=== PATIENT | female | born 1955 | race Caucasian/White ===

== ENCOUNTER 2018-06-23 06:02 | Day surgery (SDC) | payer MEDICARE, SELFPAY ==
[2018-06-23] VITALS (7 sets, daily range): BP systolic 142–160; BP diastolic 65–82; PULSE 80–88; RESP 16–18; TEMP 36.4–36.7; O2SAT 94–98; BMI 46.5
--- NOTE | 2018-06-23 07:00 | COLBX_PTH ---
PATIENT: ALIYAH LEACH LOC: EN U#:[id number] AGE/SX: 63/F ROOM: RE06/23/[address]: Dr. Jama Sunshine MD : 1955 BED: DIS: 06/23/2018 SPEC #: [id number] RECD: 06/23/18 09:22 STATUS: YASMIN MAX #: [id number] SARA: 06/23/18 07:[address]: Jama Sunshine DEPT: SURGICAL PATHOLOGY RECD BY: Herber Corral ENTERED: 06/23/18 10:38 SP TYPE: COLON BX OTHR DR: Dr. London Posada MD Tissues: COLON BIOPSY Procedures: Surgery Specimen Level IV HEADER OPERATION: Colonoscopy (MAC) PRE-OP DIAGNOSIS: Personal history of colon cancer, abdominal bloating TISSUE SUBMITTED: Random colon biopsy MICROSCOPIC DIAGNOSIS Colon, random biopsy: No pathologic diagnosis. AM:satish 06/24/18 MICROSCOPIC DESCRIPTION Slides are reviewed. GROSS DESCRIPTION Received in fixative is one container labeled with the patient's name and designated random colon biopsy. The specimen consists of multiple irregular fragments of light salvador soft tissue that in aggregate measure 1.5 x 0.8 x 0.1 cm. The specimen is totally submitted in one cassette. / SJ:rg 06/23/18 TC:5 CPT: 76221
--- NOTE | 2018-06-23 07:25 | PCM.HP.STD ---
Problem List (1) Personal history of colon cancer Status: Acute (2) Generalized abdominal pain Status: Acute (3) Abdominal bloating Status: Acute History of Present Illness Date of Admission: 06/23/18 The patient is a 63 year old F who presents for colonoscopy. Patient's last colonoscopy was 03/26/2015. That was the 5-year sadiq for her colon cancer screening everything appeared to be normal at that time. Patient has been complaining of some abdominal bloating and occasional diarrhea. She states that her urine has been dark in nature but no signs of dysuria. In general she is also been complaining of some abdominal pain. She has a father with colon cancer. Past Medical History Medical History: Medical History (Last Reviewed 06/23/18 @ 07:30 by Jama Sunshine MD) Depression F32.9 Diabetes E11.9 H/O cancer of uterus Z85.42 h/o cervical h/o colon cancer hypercholesterolemia HTN (hypertension) I10 Allergies Penicillins [PCN] Allergy (Verified 06/23/18 06:32) Swelling tolterodine tartrate [From Detrol] Allergy (Verified 06/23/18 06:32) Swelling Home Medications: Ambulatory Orders Medication Instructions Recorded Betamethasone/Propylene Glyc 15 gm TP DAILY 12/21/14 [Betamethasone Dp Aug 0.05% Crm] Fluoxetine [Prozac] 20 mg PO DAILY 12/21/14 Levothyroxine [Synthroid] 125 mcg PO DAILY 12/21/14 Lisinopril [Zestril] 10 mg PO DAILY 12/21/14 Metformin(XR) [Glucophage Xr] 1,000 mg PO BID 12/21/14 Multivitamins,Ther W-Minerals 1 tab PO DAILY 12/21/14 [Multivitamin With Minerals] Pravastatin [Pravachol] 20 mg PO DAILY 12/21/14 aspirin 81 mg tablet,delayed 81 mg PO QDAY 03/31/18 release glimepiride 2 mg tablet 2 mg PO BID tab 03/31/18 Sitagliptin Phosphate [Januvia] 100 mg PO DAILY 04/22/18 Cyanocobalamin (Vitamin B-12) 2,500 mcg PO DAILY 06/23/18 [Vitamin B12] Pravastatin [Pravachol] 20 mg PO DAILY 06/23/18 Surgical History: Surgical History (Last Reviewed 06/23/18 @ 07:30 by Jama Sunshine MD) H/O colonoscopy Z98.890 2014 History of bilateral knee replacement Z96.653 History of laparoscopic cholecystectomy Z90.49 S/P appendectomy Z90.49 S/P colectomy Z90.49 S/P hysterectomy Z90.710 Smoking Status: Never smoker Review of Systems Cardiovascular: Denies: Chest Pain, Chest Pressure, Chest Tightness, Palpitations Respiratory: Denies: Cough, Hemoptysis, Shortness of breath at rest, Shortness of breath upon exertion, Wheezing Gastrointestinal: Denies: Abdominal Pain, Constipation, Diarrhea, Hematemesis, Nausea, Melena, Vomiting VTE Information - Inpt Only VTE Present on Admission: No VTE Mechan Device Prophylaxis: None VTE Pharm Prophylaxis ordered?: No Reason prophylaxis not ordered:: Treatment Not Indicated Patient Problems: Active and Suspected Problems (Last Reviewed 03/31/18 @ 08:37 by Jama Sunshine MD) Personal history of colon cancer (Acute) Generalized abdominal pain (Acute) Abdominal bloating (Acute) - Physical Exam Lungs: Clear to auscultation Cardiovascular: Regular rate, Regular Rhythm, No murmurs Abdomen: Bowel Sounds Present, Soft, Obese Vital Signs Temp Pulse Resp BP Pulse Ox 97.6 F L 81 18 156/65 H 98 06/23/18 06:37 06/23/18 06:37 06/23/18 06:37 06/23/18 06:37 06/23/18 06:37 Oxygen Delivery Method Room Air Weight: 271 lb Body Mass Index (BMI) 46.5 Assessment/Plan All Active Problems (Last Reviewed 03/31/18 @ 08:37 by Jama Sunshine MD) Personal history of colon cancer (Acute) Generalized abdominal pain (Acute) Abdominal bloating (Acute) I plan to perform a colonoscopy with random colon biopsies.
--- NOTE | 2018-06-23 07:39 | OP.ENDO_ITS ---
Patient Name: Daniella Michael Procedure Date: 06/23/2018 6:30 AM Date of : 1955 Age: 63 Procedure: Colonoscopy Indications: Generalized abdominal pain, Clinically significant diarrhea of unexplained origin Providers: Jama Sunshine MD Referring MD: Jama Sunshine MD Medicines: See the Anesthesia note for documentation of the administered medications Patient Profile: Last Colonoscopy: March 2015. Complications: No immediate complications. Procedure: Pre-Anesthesia Assessment: - Prior to the procedure, a History and Physical was performed, and patient medications and allergies were reviewed. The patient's tolerance of previous anesthesia was also reviewed. The risks and benefits of the procedure and the sedation options and risks were discussed with the patient. All questions were answered, and informed consent was obtained. Prior Anticoagulants: The patient has taken aspirin, last dose was 7 days prior to procedure. ASA Grade Assessment: III - A patient with severe systemic disease. After reviewing the risks and benefits, the patient was deemed in satisfactory condition to undergo the procedure. After I obtained informed consent, the scope was passed under direct vision. Throughout the procedure, the patient's blood pressure, pulse, and oxygen saturations were monitored continuously. The colonoscope was introduced through the anus and advanced to the ascending colon. The colonoscopy was aborted due to the extreme difficulty of the procedure. Increasing the dose of sedation medication and applying abdominal pressure did not allow for the successful completion of the procedure. The colonoscopy was somewhat difficult due to unsatisfactory bowel prep. Successful completion of the procedure was aided by applying abdominal pressure. The patient tolerated the procedure well. The quality of the bowel preparation was unsatisfactory. Scope In: 7:09:02 AM Scope Out: 7:21:00 AM Total Procedure Duration Time 0 hours 11 minutes 58 seconds Findings: The entire examined colon appeared normal. The colon (entire examined portion) was grossly redundant. This was biopsied with a cold large-capacity forceps for microbiology. Impression: - The procedure was aborted due to the extreme difficulty of the procedure. - Preparation of the colon was unsatisfactory. - The entire examined colon is normal. - Redundant colon. Recommendation: - Discharge patient to home. - Resume previous diet. - Continue present medications. - Perform an air contrast barium enema today. - Repeat colonoscopy in 1 year for surveillance. Will need to be done in a larger center with a longer scope! Procedure Code(s): --- Professional --- 75273, 52, Colonoscopy, flexible; with biopsy, single or multiple Diagnosis Code(s): --- Professional --- Z53.8, Procedure and treatment not carried out for other reasons R10.84, Generalized abdominal pain R19.7, Diarrhea, unspecified Q43.8, Other specified congenital malformations of intestine CPT copyright 2017 [employer]. All rights reserved. The codes documented in this report are preliminary and upon geomatics professor review may be revised to meet current compliance requirements. MD Jama Ramirez MD 06/23/2018 7:39:30 AM This report has been signed electronically. Number of Addenda: 0 Note Initiated On: 06/23/2018 6:30 AM
== END 2018-06-23 08:11 | disposition home or self-care (01) ==
LOC: EN 06:03 → AC 06:04
PROVIDERS: Family Provider Family Medicine; PCP Family Medicine; Visit Provider Surgery
PROC: 0DJD8ZZ Inspection of Lower Intestinal Tract, Via Natural or Artificial Opening Endoscopic (ICD-10-PCS; CPT 45378; principal; 2018-06-23 06:55)
DX: R10.84 Generalized abdominal pain (principal); R14.0 Abdominal distension (gaseous); R19.7 Diarrhea, unspecified; Q43.8 Other specified congenital malformations of intestine; Z53.8 Procedure and treatment not carried out for other reasons; I10 Essential (primary) hypertension; E78.00 Pure hypercholesterolemia, unspecified; E11.9 Type 2 diabetes mellitus without complications; E06.9 Thyroiditis, unspecified; F32.9 Major depressive disorder, single episode, unspecified; Z85.038 Personal history of other malignant neoplasm of large intestine; Z85.42 Personal history of malignant neoplasm of other parts of uterus; Z85.41 Personal history of malignant neoplasm of cervix uteri; Z79.82 Long term (current) use of aspirin; Z79.84 Long term (current) use of oral hypoglycemic drugs; Z79.899 Other long term (current) drug therapy; Z80.0 Family history of malignant neoplasm of digestive organs
CPT/HCPCS: 45380; 88305; J7120

== ENCOUNTER 2020-03-13 19:41 | Emergency (ER) | payer MEDICARE, SELFPAY ==
[2020-03-13 19:42] VITALS: BP 156/74; PULSE 90; RESP 18; TEMP 36.3; O2SAT 95; BMI 48.0
--- NOTE | 2020-03-13 20:15 | RAD_ITS ---
STUDY: X-RAY - RIGHT FOOT CLINICAL: Female, 65 years old. RIGHT FOOT LACERATION. KICKED A PICTURE FRAME ON ACCIDENT HAS PIECE OF GLASS STUCK BETWEEN TOES TECHNIQUE: 3 view(s) of the foot. COMPARISON: None. FINDINGS: 1.4 cm radiopaque foreign body consistent with glass is seen in the second and third webspace. No other acute abnormalities. Moderate plantar spur, otherwise normal talus, calcaneus, and tarsal bones. Degenerative changes of the visualized subtalar, talonavicular, calcaneocuboid, tarsal and tarsometatarsal articulations. Normal metatarsi. Normal metatarsophalangeal joint of the great toe. Normal tibial and fibular sesamoid bones. Normal interphalangeal joint of the great toe. Normal phalanges of the great toe. Normal second through fifth metatarsophalangeal joints. Normal interphalangeal joints and phalanges of the lesser toes. RAD/Foot min 3 Views IMPRESSION: 1.4 cm radiopaque foreign body consistent with glass is seen in the second and third webspace. No other acute abnormalities. Electronically Signed: Edd Ramirez MD at 20:29 EDT , Service support ,
--- NOTE | 2020-03-13 21:05 | ED.DCSUM_ITS ---
- ER Visit Summary Date of Service: 03/13/20 Chief Complaint: Laceration History of Present Illness: The patient is a [address] Posada. She reports that a picture frame broke and she was walking around and stepped on the glass. She denies any pain. She has a history of a diabetic neuropathy. She i s unsure when her last tetanus shot was. Physical Examination: Vitals: Stable. Afebrile. General: Well-nourished and well-developed. Head: Normocephalic atraumatic. Neck: Supple, no lymphadenopathy. No JVD. Nontender. Cardiovascular: Regular rate and rhythm. No murmurs. Respiratory: No respiratory distress. Clear to auscultation bilaterally. Abdominal: Soft, nontender, nondistended, normal bowel sounds. No guarding, rebound, or peritoneal signs. Back: Nontender. Extremities: 2+ dorsalis pedis pulse bilaterally. Decreased sensation light touch in a stocking distribution. She has a large piece of glass in the bottom of her second toe over the proximal phalanx. There is mild actively bleeding. Skin: Normal color, no rash. Neurologic: Alert and oriented ?3. Cranial nerves II through XII are intact. Normal strength and sensation. Psych: Normal affect. Test Results: Clinical Impression(s) from Imaging Studies Foot X-Ray 03/13/20 20:15 IMPRESSION: 1.4 cm radiopaque foreign body consistent with glass is seen in the second and third webspace. No other acute abnormalities. Electronically Signed: Edd Ramirez MD at 20:29 EDT , Service support , Emergency Department Course and Treatment: Patient had the foreign body removed. She had a wound anesthetized and repaired. She tolerated it well. Given her history of diabetes she was treated with Keflex. She had her tetanus updated. Treatment Plan: Patient be discharged instructions follow-up Dr. Madrid in 2 days for a wound check. She is instructed to get the sutures out in 10 to 14 days. She will be placed on Keflex in an attempt to prevent infection. Return to the emergency department for any worsening symptoms. Disposition: To home in improved and stable condition. Impression: 1. Laceration right second toe, 1.5 cm, repaired. Procedure note: Wound was cleansed with chlorhexidine soap. Anesthetized with 1% lidocaine without epinephrine. Copiously irrigated with normal saline. Wound was explored there is the foreign body was removed. It was closed with 2 simple interrupted 4-0 ethilon sutures. The patient tolerated it well. This note was generated with [employer] dictation software. It may contain incorrect words, spelling, and punctuation that were not noted in review of the chart prior to signing ED Disposition - Plan for ED Patient: Disposition: Home or Assisted Living Instructions: ED Laceration Ext Sutr Stap Tape Prescriptions: Cephalexin [Keflex] 500 mg PO Q6 #28 cap Prescription Printed Referrals: Pily Price DPM [STAFF PHYSICIAN] - 2 Days for wound check
[2020-03-13] MEDS: Diphth,Pertuss(Acell),Tet Vac 0.5 ML Vial IM (21:09)
[2020-03-13] MEDS: Cephalexin 250 MG Capsule 500 MG PO (21:10)
== END 2020-03-13 21:22 | disposition home or self-care (01) ==
LOC: ED 20:41
PROVIDERS: Emergency Provider Emergency Medicine; PCP Family Medicine
DX: S91.114A Laceration without foreign body of right lesser toe(s) without damage to nail, initial encounter (principal); W25.XXXA Contact with sharp glass, initial encounter
CPT/HCPCS: 12001; 73630; 90471; 90715; 99284

== ENCOUNTER 2022-07-29 16:08 | Inpatient (IN) | payer MEDICARE, SELFPAY ==
[2022-07-29 16:08] VITALS: TEMP 36; BMI 42.8
[2022-07-29 16:11] VITALS: O2SAT 94
[2022-07-29 16:13] VITALS: BP 149/57; PULSE 78; RESP 18; O2SAT 94
[2022-07-29] MEDS: Morphine 4 MG/ML Syringe IV ×2 (16:57→18:00)
[2022-07-29 17:06] LABS: Absolute Lymphocyte Count 2.12 X10^3/uL (0.83-4.51); Basophil# 0.08 X10^3/uL; Basophil% 0.5 % (0-1); Eosinophil# 0.17 X10^3/uL; Hematocrit 43.8 % (37-47); Lymphocyte # 2.12 X10^3/ul (0.83-4.51); Lymphocyte % 12.3 % (19-41); Mean Corpuscular Hgb 28.4 pg (27.0-32.0); Mean Corpuscular Volume 88.8 fL (81-99); Mean Platelet Vol. 9.3 fl (6.2-12.0); Monocyte# 0.75 X10^3/uL; Monocyte% 4.3 % (0-10); NRBC Flagged by Analyzer 0 % (0-5); Neutrophil # 13.96 X10^3/uL (2.7-7.7); Neutrophil % 80.7 % (47-70); Platelet Count 387 K/mm3 (150-450); RBC Distribution Width CV 14.2 % (11.6-14.6); RBC Distribution Width SD 45.8 fl (35.1-43.9); Red Blood Count 4.93 M/mm3 (4.2-5.4); White Blood Count 17.3 K/mm3 (4.4-11.0)
--- NOTE | 2022-07-29 17:10 | RAD_ITS ---
STUDY: X-RAY - UNILATERAL RIBS ( RIGHT ) WITH CHEST REASON FOR EXAM: Female, 67 years old. trauma TECHNIQUE - RIBS: 4 view(s) of the ribs. TECHNIQUE - CHEST: PA COMPARISON: None. FINDINGS - RIBS: There are mildly displaced fractures of the posterior right sixth through ninth ribs FINDINGS - CHEST: There is less than optimal inspiratory effort is seen. Mild chronic interstitial thickening in the left lower lobe.. There is no demonstrated pleural abnormality. Normal size heart. Normal mediastinum and low. Normal visualized pulmonary arteries. Mildly calcified aortic arch and descending thoracic aorta. Dorsal spine demonstrates degenerative change. Normal visualized clavicles, and shoulders. There is no demonstrated abnormality of the visualized soft tissue structures of the upper abdomen. RAD/Ribs Uni Min 3V w/PA Chest IMPRESSION: RIBS: Multiple acute right rib fractures without evidence for pneumothorax. CHEST: Normal x-ray examination of the chest. Electronically Signed: Declan Spear MD at 18:16 EST ,
[2022-07-29 17:32] LABS: ALB/GLOB Ratio 0.9 RATIO (0.9-2.4); AST(SGOT) 187 U/L (15-37); Alanine Aminotransfer ALT/SGPT 172 U/L (13-56); Albumin, Serum 3.6 g/dL (3.2-5.0); Alkaline Phosphatase 56 U/L (45-117); Anion Gap 7 (5-15); BUN 22 mg/dL (7-18); BUN/Creat Ratio 26.4 RATIO (10-20); Calcium,Total 9.3 mg/dL (8.5-10.1); Chloride 104 mmol/L (98-107); Creatinine, Serum 0.83 mg/dL (0.55-1.02); EST Glomerular Filtration Rate 72 mL/min (>60); Est Glom Filt Rate - Afr Amer 87 mL/min (>60); Estimated Creatinine Clearance 55.24 ml/min; Globulin 3.9 g/dL (2.2-4.2); Glucose 169 mg/dL (74-106); Potassium 4.2 mmol/L (3.5-5.1); Protein, Total 7.5 g/dL (6.4-8.2); Sodium Level 137 mmol/L (136-145)
[2022-07-29] MEDS: Ketorolac 15 MG/ML Vial IV (18:00)
[2022-07-29] MEDS: Lidocaine 5% Patch 1 PATCH TOPICAL (18:00)
--- NOTE | 2022-07-29 19:02 | PCM.HP.STD ---
HPI - General General Date of Admission: 07/29/22 Date of Service: 07/29/22 Chief Complaint: Right sided chest pain - 1 day HPI Narrative ALIYAH LEACH, is a 67 F who presents with the above. Patient has PMHx of Type 2 DM, hypertension, h/o colon, cervical and uterine CA, in remission, comes in after a fall was going to the restroom. Patient stated that she tripped on her feet, and fell and hit her right side against the bathtub. Patient had severe pain was moving. She denied any worsening shortness of breath or dizziness or palpitations. In the ED, her vitals show blood pressure 149/57, heart rate 70, respiratory rate 18, temperature 96.8 F, oxygen saturation was 94% on room air. Her white cell count was 17.3, hemoglobin 14.2 platelet count of 387. CMP was remarkable for BUN of 22, creatinine of 0.83, AST was elevated at 187, ALT 172, ALP 56, total bilirubin 0.40. Chest x-ray showed multiple acute right rib fractures without evidence of pneumothorax [facility] Medical History Depression Diabetes H/O cancer of uterus h/o cervical h/o colon cancer HTN (hypertension) hypercholesterolemia Home Medications lisinopril 10 mg tablet 10 mg PO DAILY HEART 12/21/14 [History Last Taken 07/29/22] multivitamin,io-sdvk-riofkpku 27 mg-0.4 mg tablet 1 tab PO DAILY SUPPLEMENT 12/21/14 [History Last Taken 4 Days Ago ~07/25/22] cyanocobalamin (vitamin B-12) 2,500 mcg tablet 2,500 mcg PO DAILY SUPPLEMENT 06/23/18 [History Last Taken 07/29/22] cholecalciferol (vitamin D3) 25 mcg (1,000 unit) tablet 25 mcg PO DAILY SUPPLEMENT 07/29/22 [History Last Taken 07/29/22] cod liver oil 4 cap PO DAILY SUPPLEMENT 07/29/22 [History Last Taken 07/29/22] fluoxetine 40 mg capsule 40 mg PO DAILY DEPRESSION 07/29/22 [History Last Taken 07/29/22] glimepiride 4 mg tablet 8 mg PO DINNER DM 07/29/22 [History Last Taken 07/29/22] lactobacillus combination no.4 3 billion cell capsule (Probiotic) 3,000 mmu cells PO DAILY SUPPLEMENT 07/29/22 [History Last Taken 07/28/22] levothyroxine 112 mcg tablet 112 mcg PO DAILY THYROID 07/29/22 [History Last Taken 07/29/22] metformin 1,000 mg tablet 1,000 mg PO BID DM 07/29/22 [History Last Taken 07/29/22] pravastatin 40 mg tablet 40 mg PO QHS CHOLESTEROL 07/29/22 [History Last Taken 07/28/22] Allergy/AdvReac Type Severity Reaction Status Date / Time Penicillins [PCN] Allergy Swelling Verified 03/13/20 19:45 tolterodine tartrate Allergy Swelling Verified 03/13/20 19:45 [From Detrol] Family History Father Colon cancer Mother Diabetes CVA (cerebral vascular accident) Family History no significant family his Surgical History H/O colonoscopy History of bilateral knee replacement History of laparoscopic cholecystectomy S/P appendectomy S/P colectomy S/P colonoscopy (~06/23/18) S/P hysterectomy Social History (Updated 07/29/22 @ 22:[address] Mary Lamas MD) household members: spouse and family Smoking Status: Never smoker alcohol intake: never substance use type: does not use ROS ROS Narrative Constitutional: Denies: Anorexia, Chills, Fever, Night Sweats, Weight Change Eyes: Denies: Blurred vision, Cataracts, Conjunctivae Inflammation, Pain, Redness, Vision Change HEENT: Denies: Difficulty Hearing, Difficulty Swallowing, Head Aches, Hearing Changes, Sinus Congestion, Sinus Drainage Cardiovascular: Denies: Chest Pain, Orthopnea, Palpitations Respiratory: Denies: Cough, Shortness of breath at rest, Sputum production Gastrointestinal: Denies: Abdominal Pain, Nausea, Vomiting Genitourinary: Denies: Dysuria Musculoskeletal:See HPI Skin: Denies: Rash, Wounds Neurological: Denies: Numbness, Tingling, Focal weakness Vital Signs Vital Signs Vital Signs: 07/29/22 16:08 07/29/22 16:11 07/29/22 16:13 Temperature 96.8 F L Temperature Source Temporal Pulse Rate 78 Respiratory Rate 18 Respiratory Effort Short of Breath Respiratory Depth Shallow Blood Pressure 149/57 H Blood Pressure Mean 87 Pulse Ox 94 94 Oxygen Delivery Method Room Air Weight Weight: 113.307 kg Body Mass Index (BMI) 42.8 Physical Exam Narrative Physical exam: General: Alert, Oriented x3, Cooperative, morbidly obese, in mild pain, , not on oxygen HEENT: Atraumatic Oral: Moist Mucosa Neck: Supple Lungs: Diminished to auscultation, splinting of the chest Cardiovascular: HS I+II, regular, no murmurs Abdomen: Bowel Sounds Present, Soft, Non Tender Extremities: No edema Skin: No rashes, No breakdown Neurological: Grossly intact Psych/Mental Status: Appropriate Results Lab / Micro Data Result Diagrams: 07/29/22 16:58 07/29/22 16:58 Labs: Laboratory Results - last 24 hr 07/29/22 16:58: WBC 17.3 H, RBC 4.93, Hgb 14.0, Hct 43.8, MCV 88.8, MCH 28.4, MCHC 32.0, RDW Std Deviation 45.8 H, RDW Coeff of Handy 14.2, Plt Count 387, MPV 9.3, Immature Gran % (Auto) 1.200 H, Neut % (Auto) 80.7 H, Lymph % (Auto) 12.3 L, [place] % (Auto) 4.3, Eos % (Auto) 1.0, Baso % (Auto) 0.5, Absolute Neuts (auto) 14.0 H, Absolute Lymphs (auto) 2.12, Nucleated RBC % 0 07/29/22 16:58: Sodium 137, Potassium 4.2, Chloride 104, Carbon Dioxide 26.0, Anion Gap 7, BUN 22 H, Creatinine 0.83, Estim Creat Clear Calc 55.24, Est GFR (MDRD) Af Amer 87, Est GFR (MDRD) Non-Af 72, BUN/Creatinine Ratio 26.4 H, Glucose 169 H, Calcium 9.3, Total Bilirubin 0.40, AST 187 H, ALT 172 H, Alkaline Phosphatase 56, Total Protein 7.5, Albumin 3.6, Globulin 3.9, Albumin/Globulin Ratio 0.9 Radiology Impression Ribs w/Chest X-Ray 07/29/22 17:10 IMPRESSION: RIBS: Multiple acute right rib fractures without evidence for pneumothorax. CHEST: Normal x-ray examination of the chest. Electronically Signed: Declan Spear MD at 18:16 EST Reading Location ID and State: [facility] / [place] , Service support , Assessment & Plan Assessment/Plan (1) Multiple fractures of ribs, right side, initial encounter for closed fracture: PLAN: Plan 1. Acute chest pain secondary to rib fractures, status post mechanical fall Chest x-ray shows mildly displaced fractures of the posterior right sixth through ninth ribs No pneumothorax seen Will admit for pain control, encourage use of incentive spirometer 2. Type II DM, on glimepiride and metformin We will continue same, will add blood glucose checks with insulin sliding scale 3. Hypertension, controlled, continue lisinopril 4. Hypothyroidism, continue Synthroid 5. Morbid obesity, BMI 42.9, lifestyle modification recommended 6. DVT PPx- Lovenox SC Charges/Coding Visit Charges Inpatient E&M: 37612 Init Hosp L3
--- NOTE | 2022-07-29 19:34 | EDS_ITS ---
HPI History of Present Illness Chief Complaint: Fall Informant: patient Narrative Narrative: Patient is a 67-year-old female with history of diabetes, hyperlipidemia and hypertension as well as colon cancer presenting with right-sided rib pain after fall. Patient was going to the restroom when her shoes got tangled up on the rug causing her to fall. Patient landed on her right ribs with the bathtub. She denies seeing her head. She denies any loss of conscious. She is on any blood thinners. She now has a cough and pain on her right side especially with any movement or deep breathing. She came in for further evaluation. Patient lives home alone. No other complaints at this time. [facility] Medical History Depression Diabetes H/O cancer of uterus h/o cervical h/o colon cancer HTN (hypertension) hypercholesterolemia Home Medications betamethasone, augmented 0.05 % topical cream 15 gm TP DAILY 12/21/14 [History Last Taken Unknown] fluoxetine 20 mg capsule 20 mg PO DAILY 12/21/14 [History Last Taken Unknown] levothyroxine 125 mcg tablet 125 mcg PO DAILY 12/21/14 [History Last Taken Unknown] lisinopril 10 mg tablet 10 mg PO DAILY 12/21/14 [History Last Taken Unknown] metformin 500 mg tablet,extended release 24 hr 1,000 mg PO BID 12/21/14 [History Last Taken Unknown] multivitamin,eq-tubz-cuafmcvs 27 mg-0.4 mg tablet 1 tab PO DAILY 12/21/14 [History Last Taken Unknown] pravastatin 20 mg tablet 20 mg PO DAILY 12/21/14 [History Last Taken Unknown] aspirin 81 mg tablet,delayed release 81 mg PO QDAY 03/31/18 [History Last Taken Unknown] glimepiride 2 mg tablet 2 mg PO BID 03/31/18 [History Last Taken Unknown] sitagliptin phosphate 100 mg tablet 100 mg PO DAILY 04/22/18 [History Last Taken Unknown] cyanocobalamin (vitamin B-12) 2,500 mcg tablet 2,500 mcg PO DAILY 06/23/18 [History Last Taken Unknown] pravastatin 20 mg tablet 20 mg PO DAILY 06/23/18 [History Last Taken Unknown] peg 3350-electrolytes 236 gram-22.74 gram-6.74 gram-5.86 gram solution 4,000 ml PO ONCE #4,000 mL 07/08/18 [Rx Last Taken Unknown] cephalexin 500 mg capsule 500 mg PO Q6 #28 caps 03/13/20 [Rx Last Taken Unknown] Allergy/AdvReac Type Severity Reaction Status Date / Time Penicillins [PCN] Allergy Swelling Verified 03/13/20 19:45 tolterodine tartrate Allergy Swelling Verified 03/13/20 19:45 [From Detrol] Family History Father Colon cancer Mother Diabetes CVA (cerebral vascular accident) no significant family history Surgical History H/O colonoscopy History of bilateral knee replacement History of laparoscopic cholecystectomy S/P appendectomy S/P colectomy S/P colonoscopy (~06/23/18) S/P hysterectomy Social History Smoking Status: Never smoker alcohol intake: never ROS ROS ED Constitutional Constitutional ED: Denies chills or fever(s) Eyes Eyes: Denies change in vision or eye pain ENT ENT ED: Denies dental pain, mouth lesions or nasal trauma Cardiovascular Cardiovascular: Reports chest pain; Denies syncope Respiratory/Chest Respiratory/Chest: Reports cough; Denies dyspnea Gastrointestinal Gastrointestinal: Denies abdominal pain or nausea Genitourinary Genitourinary ED: Denies dysuria or hematuria Musculoskeletal Musculoskeletal: Denies arthralgias, back pain or myalgias Integumentary Denies Abrasions or wounds Neurologic Neurologic: Denies headache(s), paresthesias or weakness Psychiatric Psychiatric: Denies anxiety or depression Hematologic/Lymphatic Hematologic/Lymphatic: Denies easy bleeding or easy bruising EXAM Physical Exam Const Vital Signs: 07/29/22 16:08 07/29/22 16:11 07/29/22 16:13 Temperature 96.8 F L Temperature Source Temporal Pulse Rate 78 Respiratory Rate 18 Respiratory Effort Short of Breath Respiratory Depth Shallow Blood Pressure 149/57 H Blood Pressure Mean 87 Pulse Ox 94 94 Oxygen Delivery Method Room Air Positive well nourished and well developed General Appearance ED: well developed HEENT Reports head/scalp atraumatic, hearing grossly normal bilaterally and TM's normal bilaterally normocephalic and atraumatic; Negative for Kelley's sign, raccoon eyes or scalp tenderness Nose: no nasal discharge Tympanic Membrane ED: Yes TM's normal bilaterally Mouth ED: Yes other Mouth: other Other Details: No Malocclusion Eyes PERRL Neck full ROM Thyroid: Negative for tender Chest Wall inspection of chest normal Chest Narrative: Tenderness palpation of the right mid chest near the midaxillary line and the back. No flail segment appreciated. Chest: Negative for crepitus Resp normal respiratory effort, no retractions and clear to auscultation bilaterally Cardio regular rate and regular rhythm Jugular Venous Distention: Negative for JVD Peripheral Pulses: pulses 2+ throughout GI non-tender and non-distended Palpation: soft; Negative for guarding or rebound tenderness present Back/Spine Cervical Spine: Negative for cervical spine tenderness Thoracic Spine / Upper Back: Negative for thoracic spinal tenderness Lumbar Spine / Lower Back: Negative for lumbar spinal tenderness Extremity normal to inspection and full ROM Extremity Narrative: pelvis stable, no deformity Neuro oriented x3, moves all extremities and no sensory deficits noted Sensorium / Orientation: alert Motor Exam: strength 5/5 throughout Psych mental status grossly normal Skin no wounds Trauma: Negative for abrasion MDM MDM MDM Narrative Medical decision making narrative: Patient is evaluated after mechanical fall with subsequent right-sided rib pain. Physical exam is concerning for rib fracture given her pain with palpation. She is not requiring any supplemental oxygen at this time. She is initially giv en IV morphine and then is redosed with morphine as well as IV Toradol and a Lidoderm patch. Work-up is remarkable for mild leukocytosis of 17.3. No IV source of infection I suspect this is reactive. CMP largely unremarkable. She does have a mild transaminitis of uncertain significance. Abdomen is soft and nontender. Rib series interpreted by myself as well as radiology do show multiple right-sided rib fractures. No flail segments appreciated. Patient will be admitted for further pain control. Patient and her daughter agreeable with this plan of care. Lab Data Attestation: I reviewed the patient's lab results. Labs: Laboratory Results - last 24 hr 07/29/22 07/29/22 16:58 16:58 WBC 17.3 H RBC 4.93 Hgb 14.0 Hct 43.8 MCV 88.8 MCH 28.4 MCHC 32.0 RDW Std Deviation 45.8 H RDW Coeff of Handy 14.2 Plt Count 387 MPV 9.3 Immature Gran % (Auto) 1.200 H Neut % (Auto) 80.7 H Lymph % (Auto) 12.3 L Snyder % (Auto) 4.3 Eos % (Auto) 1.0 Baso % (Auto) 0.5 Absolute Neuts (auto) 14.0 H Absolute Lymphs (auto) 2.12 Nucleated RBC % 0 Sodium 137 Potassium 4.2 Chloride 104 Carbon Dioxide 26.0 Anion Gap 7 BUN 22 H Creatinine 0.83 Estim Creat Clear Calc 55.24 Est GFR (MDRD) Af Amer 87 Est GFR (MDRD) Non-Af 72 BUN/Creatinine Ratio 26.4 H Glucose 169 H Calcium 9.3 Total Bilirubin 0.40 AST 187 H ALT 172 H Alkaline Phosphatase 56 Total Protein 7.5 Albumin 3.6 Globulin 3.9 Albumin/Globulin Ratio 0.9 Radiography Diagnostic Testing: Clinical Impression(s) from Imaging Studies Ribs w/Chest X-Ray 07/29/22 17:10 IMPRESSION: RIBS: Multiple acute right rib fractures without evidence for pneumothorax. CHEST: Normal x-ray examination of the chest. Electronically Signed: Declan Spear MD at 18:16 EST Reading Location ID and State: [facility] / [place] , Service support , Discharge Plan Triage Chief Complaint: Fall ED Provider: Eva Isaac Dx/Rx/DC Orders Clinical Impression: Multiple fractures of ribs, right side, initial encounter for closed fracture, Acute chest wall pain Primary Care Provider: London Posada Disposition Disposition: Acute Care Hospital [facility]
[2022-07-29 20:26] VITALS: BP 132/68; PULSE 81; RESP 16; TEMP 37.1; O2SAT 94
[2022-07-29 20:31] VITALS: BMI 42.7
[2022-07-29] MEDS: 0.9% Normal Saline 1,000 ML 75 ML IV (21:02)
[2022-07-29] MEDS: 0.9% Saline Lock 10 ML Syringe IV (21:02)
[2022-07-29] MEDS: Morphine 2 MG/ML Syringe IV (21:19)
[2022-07-29] MEDS: Insulin Lispro 100 UNIT/ML INSULN.PEN SC (21:27)
[2022-07-29] MEDS: Pravastatin 40 MG Tablet PO (21:28)
[2022-07-29] MEDS: Enoxaparin 40 MG/0.4 ML Syringe SC (21:28)
[2022-07-29] MEDS: Acetaminophen 500 MG Tablet 1000 MG PO (21:29)
[2022-07-29 22:50] LABS: Bedside Glucose 173 mg/dL (74-106)
[2022-07-30] VITALS (10 sets, daily range): BP systolic 104–132; BP diastolic 61–74; PULSE 73–88; RESP 15–18; TEMP 36.8–37.1; O2SAT 89–95
[2022-07-30] MEDS: 0.9% Saline Lock 10 ML Syringe IV ×2 (01:44→12:29)
[2022-07-30] MEDS: Morphine 2 MG/ML Syringe IV (01:45)
[2022-07-30] MEDS: Menthol/Lanolin/Calamine/Znox 113 GM Tube 1 APPLIC TOPICAL ×3 (01:45→21:03)
[2022-07-30] MEDS: Acetaminophen 500 MG Tablet 1000 MG PO ×3 (06:22→21:04)
[2022-07-30] MEDS: Levothyroxine 112 MCG Tablet PO (06:22)
[2022-07-30 06:50] LABS: Bedside Glucose 123 mg/dL (74-106)
[2022-07-30 06:57] LABS: Absolute Lymphocyte Count 1.44 X10^3/uL (0.83-4.51); Absolute Neutrophil Count 9.6 X10^3/uL (2.0-7.7); Basophil# 0.03 X10^3/uL; Basophil% 0.3 % (0-1); Eosinophil# 0.05 X10^3/uL; Eosinophils% 0.4 % (0-5); Hematocrit 39.8 % (37-47); Hemoglobin 12.3 g/dL (12.0-15.0); Lymphocyte # 1.44 X10^3/ul (0.83-4.51); Mean Corp Hgb Conc 30.9 g/dL (32-36); Mean Corpuscular Hgb 27.6 pg (27.0-32.0); Mean Corpuscular Volume 89.2 fL (81-99); Mean Platelet Vol. 9.3 fl (6.2-12.0); Monocyte# 0.79 X10^3/uL; Monocyte% 6.6 % (0-10); NRBC Flagged by Analyzer 0 % (0-5); Platelet Count 350 K/mm3 (150-450); RBC Distribution Width CV 14.4 % (11.6-14.6); RBC Distribution Width SD 46.8 fl (35.1-43.9); Red Blood Count 4.46 M/mm3 (4.2-5.4)
[2022-07-30 07:27] LABS: ALB/GLOB Ratio 0.9 RATIO (0.9-2.4); AST(SGOT) 79 U/L (15-37); Alanine Aminotransfer ALT/SGPT 126 U/L (13-56); Albumin, Serum 3.4 g/dL (3.2-5.0); Alkaline Phosphatase 49 U/L (45-117); Anion Gap 4 (5-15); BUN 27 mg/dL (7-18); BUN/Creat Ratio 32.3 RATIO (10-20); Calcium,Total 8.9 mg/dL (8.5-10.1); Chloride 102 mmol/L (98-107); Creatinine, Serum 0.84 mg/dL (0.55-1.02); EST Glomerular Filtration Rate 72 mL/min (>60); Est Glom Filt Rate - Afr Amer 87 mL/min (>60); Estimated Creatinine Clearance 54.58 ml/min; Globulin 3.7 g/dL (2.2-4.2); Glucose 133 mg/dL (74-106); Potassium 4.3 mmol/L (3.5-5.1); Protein, Total 7.1 g/dL (6.4-8.2); Sodium Level 135 mmol/L (136-145)
[2022-07-30] MEDS: metFORMIN HCl 1,000 MG Tablet 1000 MG PO ×2 (08:08→16:51)
[2022-07-30] MEDS: oxyCODONE 5 MG Tablet PO (08:08)
[2022-07-30] MEDS: Multivitamins,Ther W-Minerals Tablet 1 TABLET PO (08:09)
[2022-07-30] MEDS: Cyanocobalamin 500 MCG Tablet 2500 MCG PO (08:09)
[2022-07-30] MEDS: Cholecalciferol (VIT D3) 25 MCG TABLET (1,000 UNITS) PO (08:09)
[2022-07-30] MEDS: Enoxaparin 40 MG/0.4 ML Syringe SC ×2 (08:09→20:59)
[2022-07-30] MEDS: Lidocaine 5% Patch 2 PATCH TOPICAL (08:10)
[2022-07-30] MEDS: Fluoxetine HCl 40 MG CAPSULE PO (08:11)
[2022-07-30] MEDS: Lisinopril 10 MG Tablet PO (08:11)
--- NOTE | 2022-07-30 10:18 | PN.HOSP_ITS ---
Subjective Subjective Doing well, still with some rib pain, I discussed with her extensively the need to get out of bed and ambulate regardless of how painful she has. Objective Data Objective Data Vital Signs: Vital Signs Temp Pulse Resp BP Pulse Ox O2 Del Method O2 Flow Rate 98.2 F 73 15 126/64 H 94 Nasal Cannula 1 07/30/22 07:25 07/30/22 07:34 07/30/22 07:34 07/30/22 07:25 07/30/22 07:25 07/30/22 07:34 07/30/22 07:25 FiO2 1 07/30/22 07:34 Oxygen Flow Rate (L/min) 1 Oxygen Delivery Method Nasal Cannula Weight: 250 lb 10.649 oz Body Mass Index (BMI) 42.7 Intake & Output: Intake and Output for Last 24 Hours 07/29/22 07/30/22 07/31/22 03:59 03:59 03:59 Intake Total 340 / 340 500 / 500 Balance 340 / 340 500 / 500 Lab / Micro Data Result Diagrams: 07/30/22 06:34 07/30/22 06:34 Labs: Laboratory Results - last 24 hr 07/29/22 16:58: WBC 17.3 H, RBC 4.93, Hgb 14.0, Hct 43.8, MCV 88.8, MCH 28.4, MCHC 32.0, RDW Std Deviation 45.8 H, RDW Coeff of Handy 14.2, Plt Count 387, MPV 9.3, Immature Gran % (Auto) 1.200 H, Neut % (Auto) 80.7 H, Lymph % (Auto) 12.3 L , Woodford % (Auto) 4.3, Eos % (Auto) 1.0, Baso % (Auto) 0.5, Absolute Neuts (auto) 14.0 H, Absolute Lymphs (auto) 2.12, Nucleated RBC % 0 07/29/22 16:58: Sodium 137, Potassium 4.2, Chloride 104, Carbon Dioxide 26.0, Anion Gap 7, BUN 22 H, Creatinine 0.83, Estim Creat Clear Calc 55.24, Est GFR (MDRD) Af Amer 87, Est GFR (MDRD) Non-Af 72, BUN/Creatinine Ratio 26.4 H, Glucose 169 H, Calcium 9.3, Total Bilirubin 0.40, AST 187 H, ALT 172 H, Alkaline Phosphatase 56, Total Protein 7.5, Albumin 3.6, Globulin 3.9, Albumin/Globulin Ratio 0.9 07/29/22 21:25: POC Glucose 173 H 07/30/22 06:27: POC Glucose 123 H 07/30/22 06:34: WBC 12.0 H, RBC 4.46, Hgb 12.3, Hct 39.8, MCV 89.2, MCH 27.6, MCHC 30.9 L, RDW Std Deviation 46.8 H, RDW Coeff of Handy 14.4, Plt Count 350, MPV 9.3, Immature Gran % (Auto) 0.700, Neut % (Auto) 80.0 H, Lymph % (Auto) 12.0 L, Woodford % (Auto) 6.6, Eos % (Auto) 0.4, Baso % (Auto) 0.3, Absolute Neuts (auto) 9.6 H, Absolute Lymphs (auto) 1.44, Nucleated RBC % 0 07/30/22 06:34: Sodium 135 L, Potassium 4.3, Chloride 102, Carbon Dioxide 29.0, Anion Gap 4 L, BUN 27 H, Creatinine 0.84, Estim Creat Clear Calc 54.58, Est GFR (MDRD) Af Amer 87, Est GFR (MDRD) Non-Af 72, BUN/Creatinine Ratio 32.3 H, Glucose 133 H, Calcium 8.9, Total Bilirubin 0.50, AST 79 H, ALT 126 H, Alkaline Phosphatase 49, Total Protein 7.1, Albumin 3.4, Globulin 3.7, Albumin/Globulin Ratio 0.9 Radiography Diagnostic Testing: Radiology Impression Ribs w/Chest X-Ray 07/29/22 17:10 IMPRESSION: RIBS: Multiple acute right rib fractures without evidence for pneumothorax. CHEST: Normal x-ray examination of the chest. Electronically Signed: Declan Spear MD at 18:16 EST , Physical Exam Narrative General: Alert, Oriented x3, Cooperative, No apparent distress HEENT: Atraumatic, PERRLA, EOMI, Normocephalic Oral: Moist Mucosa Neck: Supple, No JVD Lungs: Clear to auscultation, Normal air movement, No rhonchi, No wheeze, No rales Cardiovascular: Regular rate, Regular Rhythm, Normal S1, Normal S2, No murmurs, chest pain to palpation on the right Abdomen: Soft, Non Tender, Non-Distended, No Hepato-splenomegaly Extremities: No edema, Capillary Refill Less than 3 Seconds Skin: No rashes, No breakdown Musculoskeletal: No Tenderness to Palpation of Joints or Extremities Neurological: Cranial nerves II-XII grossly intact, Motor Exam 5/5 strength throughout, Sensory exam intact to light touch and pain Psych/Mental Status: Normal Affect, Appropriate Assessment & Plan Assessment/Plan (1) Multiple fractures of ribs, right side, initial encounter for closed fracture: PLAN: Plan 1. Acute chest pain secondary to rib fractures on the right after mechanical fall ? She has a mildly displaced rib fractures on the right sixth through ninth ribs ? No pneumothorax seen ? Continue with aggressive pain control, I did have an extensive discussion with her on using incentive spirometry and ambulation 2. DM2 ? Continue with her metformin and glimepiride will continue with sliding scale insulin as well as Accu-Cheks ? We will make adjustments as necessary 3. HTN/HLD ? Blood pressures are stable ? Her home blood pressure medications ? Continue with her home statin 4. Hypothyroidism ? Stable ? Continue with Synthroid 5. Anxiety/depression ? Stable ? Continue with her home medications DVT: Lovenox Charges/Coding Visit Charges Inpatient E&M: 25730 Subs Hosp L2
--- NOTE | 2022-07-30 10:55 | CASEMGMT ---
RN CM Face to Face with patient for initial transition planning/care coordination assessment. RN CM introduced self and role at [facility]. Patient lying in bed, alert and oriented. Patient willing to participate in assessment and is able to answer all questions appropriately. Care providers, pharmacy, and demographics verified. Patient wishes to discharge home with possible HHC but willing to go to SNF if needed, will monitor progress with therapy. Patient states she has no further needs or concerns at this time. CM to follow for discharge planning needs that may arise. PCP: [facility] Specialists: none Preferred Pharmacy: [facility] Insurance: Betsy LEMUS Prescription Benefit: yes Living Will/HPOA: none LNOK: daughter, son Living Arrangements: Patient lives alone in a first floor apartment with no steps to enter. Patient states she is independent at home. Transportation: self, daughter, son DME/HHC: Patient states she has cane, walker, and grab bars at home. No previous HHC. Patient has previously been to SNF. Disposition Plan: HHC vs SNF pending progress with therapy. Crystal ALLEN, RN, CM
[2022-07-30 11:55] LABS: Bedside Glucose 159 mg/dL (74-106)
[2022-07-30] MEDS: Ketorolac 30 MG/ML Syringe IV (12:28)
--- NOTE | 2022-07-30 14:12 | CASEMGMT ---
Social Work? SW in to meet with pt following update from physical therapist that pt will need placement at nursing facility. SW?introduced self and role at the hospital. Pt agreeable to discussing discharge planning. A list of SNF providers including quality and resource use data and consistent with the patient?s preferred geographic region, medical needs, and insurance network were provided from the [facility] Guide. Pt reviewed list and stated first preference would be [facility]. Second choice would be [facility]. SW notified Haley, discharge culture media laboratory assistant, of pt choice. Referral to be sent. PLAN: [facility], pending acceptance and precert CARLOS Alvarado?
--- NOTE | 2022-07-30 14:18 | CASEMGMT ---
Discharge Shoe Lay Out Planner This group underwriter sent referral to Emperatriz at [facility] via [facility]. PT/OT notes not available yet. Hyacinth BURGOS Librarian Assistant
--- NOTE | 2022-07-30 14:46 | CASEMGMT ---
Addendum entered by Haley Magaña 07/30/22 15:08: Pt/OT notes sent Original Note: Discharge Mover Helper [facility] does not take patients insurance. This repairer typewriter sent referral to [facility] via [facility] Hyacinth BURGOS Sports Information Director
[2022-07-30] MEDS: Glimepiride 4 MG Tablet 8 MG PO (16:51)
[2022-07-30] MEDS: Pravastatin 40 MG Tablet PO (21:02)
[2022-07-30 21:46] LABS: Bedside Glucose 147 mg/dL (74-106)
[2022-07-31 03:30] VITALS: BP 128/69; PULSE 78; RESP 18; TEMP 37.1; O2SAT 96
[2022-07-31] MEDS: Acetaminophen 500 MG Tablet 1000 MG PO ×3 (05:06→22:32)
[2022-07-31] MEDS: Levothyroxine 112 MCG Tablet PO (05:06)
[2022-07-31] MEDS: Insulin Lispro 100 UNIT/ML INSULN.PEN SC (05:11)
[2022-07-31 05:40] LABS: Bedside Glucose 159 mg/dL (74-106)
--- NOTE | 2022-07-31 07:50 | CASEMGMT ---
Discharge Clinic Mgr Kenyatta from [facility] accepted patient. This lead technical writer asked Kenyatta to start pre-cert today 07/31/2022. Hyacinth BURGOS Gate Attendant
[2022-07-31] MEDS: Cyanocobalamin 500 MCG Tablet 2500 MCG PO (08:21)
[2022-07-31] MEDS: metFORMIN HCl 1,000 MG Tablet 1000 MG PO ×2 (08:21→16:42)
[2022-07-31] MEDS: Multivitamins,Ther W-Minerals Tablet 1 TABLET PO (08:22)
[2022-07-31] MEDS: Cholecalciferol (VIT D3) 25 MCG TABLET (1,000 UNITS) PO (08:22)
[2022-07-31 08:23] VITALS: BP 147/68; PULSE 80; RESP 18; TEMP 37.2; O2SAT 92
[2022-07-31] MEDS: Menthol/Lanolin/Calamine/Znox 113 GM Tube 1 APPLIC TOPICAL ×2 (10:48→22:27)
[2022-07-31] MEDS: Lidocaine 5% Patch 2 PATCH TOPICAL (10:49)
[2022-07-31] MEDS: Enoxaparin 40 MG/0.4 ML Syringe SC ×2 (10:49→22:31)
[2022-07-31] MEDS: Fluoxetine HCl 40 MG CAPSULE PO (10:50)
[2022-07-31] MEDS: Lisinopril 10 MG Tablet PO (10:51)
[2022-07-31 11:25] LABS: Bedside Glucose 146 mg/dL (74-106)
--- NOTE | 2022-07-31 12:55 | PCM.PN.HOSP ---
Subjective Subjective Doing well, still has chest pain but she states she was able to get her incentive spirometer up to 1250 yesterday Objective Data Objective Data Vital Signs: Vital Signs Temp Pulse Resp BP Pulse Ox O2 Del Method O2 Flow Rate 98.9 F 80 18 147/68 H 92 Room Air 1 07/31/22 08:23 07/31/22 08:23 07/31/22 08:23 07/31/22 08:23 07/31/22 08:23 07/31/22 08:27 07/31/22 03:30 FiO2 1 07/31/22 03:30 Oxygen Flow Rate (L/min) 1 Oxygen Delivery Method Room Air Weight: 250 lb 10.649 oz Body Mass Index (BMI) 42.7 Intake & Output: Intake and Output for Last 24 Hours 07/30/22 07/31/22 08/01/22 03:59 03:59 03:59 Intake Total 412.5 / 412.5 2089 / 2089 550 / 550 Output Total 850 / 850 Balance 412.5 / 412.5 2088 / 2088 -300 / -300 Lab / Micro Data Result Diagrams: 07/30/22 06:34 07/30/22 06:34 Labs: Laboratory Results - last 24 hr 07/30/22 20:58: POC Glucose 147 H 07/31/22 05:10: POC Glucose 159 H 07/31/22 11:06: POC Glucose 146 H Physical Exam Narrative General: Alert, Oriented x3, Cooperative, No apparent distress HEENT: Atraumatic, PERRLA, EOMI, Normocephalic Oral: Moist Mucosa Neck: Supple, No JVD Lungs: Clear to auscultation, Normal air movement, No rhonchi, No wheeze, No rales Cardiovascular: Regular rate, Regular Rhythm, Normal S1, Normal S2, No murmurs, chest pain to palpation on the right Abdomen: Soft, Non Tender, Non-Distended, No Hepato-splenomegaly Extremities: No edema, Capillary Refill Less than 3 Seconds Skin: No rashes, No breakdown Musculoskeletal: No Tenderness to Palpation of Joints or Extremities Neurological: Cranial nerves II-XII grossly intact, Motor Exam 5/5 strength throughout, Sensory exam intact to light touch and pain Psych/Mental Status: Normal Affect, Appropriate Assessment & Plan Assessment/Plan (1) Multiple fractures of ribs, right side, initial encounter for closed fracture: PLAN: Plan 1. Acute chest pain secondary to rib fractures on the right after mechanical fall ? She has a mildly displaced rib fractures on the right sixth through ninth ribs ? No pneumothorax seen ? Continue with aggressive pain control, I did have an extensive discussion with her on using incentive spirometry and ambulation ? She does not appear to aggressively be using the morphine, oxycodone or Toradol and she states she did walk around the unit yesterday ? PT/OT for evaluation and possible placement at SNF. 2. DM2 ? Continue with her metformin and glimepiride will continue with sliding scale insulin as well as Accu-Cheks ? We will make adjustments as necessary 3. HTN/HLD ? Blood pressures are stable ? Her home blood pressure medications ? Continue with her home statin 4. Hypothyroidism ? Stable ? Continue with Synthroid 5. Anxiety/depression ? Stable ? Continue with her home medications DVT: Lovenox Charges/Coding Visit Charges Inpatient E&M: 28591 Subs Hosp L2
[2022-07-31 13:59] VITALS: BP 144/76; PULSE 92; RESP 18; TEMP 37; O2SAT 93
[2022-07-31 14:00] VITALS: BP 144/76; PULSE 92; RESP 18; TEMP 37; O2SAT 93
--- NOTE | 2022-07-31 14:20 | CASEMGMT ---
Social Work SW met with pt and informed that [facility] is unable to accept but [facility] can accept pt. SW explained that insurance precert has been started and SW will update pt when determination is made. Pt expressing understanding. Plan: [facility], pending precert S CARLOS Biggs
[2022-07-31 16:06] LABS: Bedside Glucose 151 mg/dL (74-106)
[2022-07-31] MEDS: Glimepiride 4 MG Tablet 8 MG PO (16:41)
[2022-07-31 20:00] VITALS: BP 125/98; PULSE 89; RESP 16; TEMP 36.8; O2SAT 95
[2022-07-31 21:00] VITALS: BP 125/98; PULSE 89; RESP 16; TEMP 36.8; O2SAT 95
[2022-07-31] MEDS: Pravastatin 40 MG Tablet PO (22:32)
[2022-07-31 23:05] LABS: Bedside Glucose 138 mg/dL (74-106)
[2022-08-01 02:00] VITALS: BP 144/74; PULSE 79; RESP 16; TEMP 36.7; O2SAT 93
[2022-08-01 03:00] VITALS: BP 144/74; PULSE 79; RESP 16; TEMP 36.7; O2SAT 93
[2022-08-01 05:43] LABS: Absolute Lymphocyte Count 1.72 X10^3/uL (0.83-4.51); Basophil# 0.04 X10^3/uL; Basophil% 0.4 % (0-1); Eosinophil# 0.29 X10^3/uL; Eosinophils% 2.6 % (0-5); Hematocrit 39.7 % (37-47); Hemoglobin 12.3 g/dL (12.0-15.0); Lymphocyte # 1.72 X10^3/ul (0.83-4.51); Lymphocyte % 15.5 % (19-41); Mean Corpuscular Hgb 27.2 pg (27.0-32.0); Mean Corpuscular Volume 87.8 fL (81-99); Mean Platelet Vol. 9.5 fl (6.2-12.0); Monocyte# 0.95 X10^3/uL; Monocyte% 8.6 % (0-10); NRBC Flagged by Analyzer 0 % (0-5); Neutrophil # 8.04 X10^3/uL (2.7-7.7); Neutrophil % 72.3 % (47-70); Platelet Count 315 K/mm3 (150-450); RBC Distribution Width CV 14.3 % (11.6-14.6); Red Blood Count 4.52 M/mm3 (4.2-5.4); White Blood Count 11.1 K/mm3 (4.4-11.0)
[2022-08-01] MEDS: Acetaminophen 500 MG Tablet 1000 MG PO ×2 (06:01→13:47)
[2022-08-01] MEDS: Levothyroxine 112 MCG Tablet PO (06:01)
[2022-08-01 06:07] LABS: Anion Gap 3 (5-15); BUN 18 mg/dL (7-18); BUN/Creat Ratio 34.4 RATIO (10-20); Calcium,Total 9.2 mg/dL (8.5-10.1); Chloride 106 mmol/L (98-107); Creatinine, Serum 0.52 mg/dL (0.55-1.02); EST Glomerular Filtration Rate 123 mL/min (>60); Est Glom Filt Rate - Afr Amer 149 mL/min (>60); Estimated Creatinine Clearance 45.85 ml/min; Glucose 123 mg/dL (74-106); Potassium 4.3 mmol/L (3.5-5.1); Sodium Level 137 mmol/L (136-145)
[2022-08-01 06:35] LABS: Bedside Glucose 135 mg/dL (74-106)
[2022-08-01] MEDS: metFORMIN HCl 1,000 MG Tablet 1000 MG PO (08:20)
[2022-08-01] MEDS: Menthol/Lanolin/Calamine/Znox 113 GM Tube 1 APPLIC TOPICAL (08:21)
[2022-08-01] MEDS: Cholecalciferol (VIT D3) 25 MCG TABLET (1,000 UNITS) PO (08:21)
[2022-08-01] MEDS: Cyanocobalamin 500 MCG Tablet 2500 MCG PO (08:21)
[2022-08-01] MEDS: Multivitamins,Ther W-Minerals Tablet 1 TABLET PO (08:21)
[2022-08-01] MEDS: Lidocaine 5% Patch 2 PATCH TOPICAL (08:22)
[2022-08-01] MEDS: Fluoxetine HCl 40 MG CAPSULE PO (08:23)
[2022-08-01] MEDS: Enoxaparin 40 MG/0.4 ML Syringe SC (08:23)
[2022-08-01] MEDS: Lisinopril 10 MG Tablet PO (08:24)
[2022-08-01 09:00] VITALS: BP 144/64; PULSE 80; RESP 16; TEMP 36.6; O2SAT 93
--- NOTE | 2022-08-01 10:01 | CASEMGMT ---
Discharge Purchasing/Receiving Pre-cert has been obtained. JESUS Arnold notified. Hyacinth BURGOS [employer]
[2022-08-01 11:00] VITALS: O2SAT 95
--- NOTE | 2022-08-01 11:28 | TREXTCAR_ITS ---
Diet Diet Order/Speech Therapy: 07/30/22 15:48 Diet: Consistent Carb - Calorie Controlled Food consistency:: Regular Liquid Consistency:: Regular/Thin Type of Dietary Supplement:: Walker Is pt able to select menu?: Yes Diet Comments: NO SHELLFISH OR PORK, Walker BID with lunch and dinner How many daily calories?: 1800 calorie Routine Orders/Code Status Routine Lab Work: CBC and BMP Wound(s) INNER AYAH BUTTOCKS: Wound Type: Pressure Injury Therapies Physical Therapy: Eval and Treat Occupational Therapy: Eval and Treat Problem/Diagnosis (1) Multiple fractures of ribs, right side, initial encounter for closed fracture: Status: Acute Code(s): S22.41XA - Multiple fractures of ribs, right side, initial encounter for closed fracture Plan 1. Acute chest pain secondary to rib fractures on the right after mechanical fall ? She has a mildly displaced rib fractures on the right sixth through ninth ribs ? No pneumothorax seen ? Continue with aggressive pain control, I did have an extensive discussion with her on using incentive spirometry and ambulation ? She does not appear to aggressively be using the morphine, oxycodone or Toradol and she states she did walk around the unit yesterday ? PT/OT for evaluation and possible placement at SNF. 2. DM2 ? Continue with her metformin and glimepiride will continue with sliding scale insulin as well as Accu-Cheks ? We will make adjustments as necessary 3. HTN/HLD ? Blood pressures are stable ? Her home blood pressure medications ? Continue with her home statin 4. Hypothyroidism ? Stable ? Continue with Synthroid 5. Anxiety/depression ? Stable ? Continue with her home medications DVT: Lovenox Allergies/Procedures Done in Hospital Allergies Penicillins [PCN] Allergy (Verified 03/13/20 19:45) Swelling tolterodine tartrate [From Detrol] Allergy (Verified 03/13/20 19:45) Swelling Procedures: None Type of Care/Length of Stay Estimated LOS: Convalescent Care Less Than 30 days Type of Care Needed: Skilled Rehab Potential: Good Prognosis: Good Additional Orders/Day of Discharge Day of Discharge: 08/01/22 Dietary and Speech Recommendations Dietitian Recommendations/Changes: RD will change diet to 1800kcal CCD to manage blood glucose. RD will order Walker BID to promote wound healing. Discharge Plan Admission Admit Date/Time: 07/29/22 18:55 Attending Provider: Carlo Carbone Primary Care Provider: London Posada Consulting Providers: Mary Lamas Discharge Orders/Prescriptions Prescriptions: New oxycodone 5 mg Tablet 5 mg PO Q4H PRN PRN (Reason: Pain Score 6-10) 3 Days Qty: 10 0RF lidocaine 5 % Adhesive Patch,Medicated 2 patch topical DAILY Qty: 0 0RF Protocol: *Topical Application Instructions APPLICATION INSTRUCTIONS: apply to affected side of chest Continued lisinopril 10 MG tablet 10 mg PO DAILY Label Comments: PREVENT KIDNEY FAILURE multivitamin,[id number] 1 TABLET tablet 1 tab PO DAILY cyanocobalamin (vitamin B-12) 2,500 MCG tablet 2,500 mcg PO DAILY fluoxetine 40 mg capsule 40 mg PO DAILY Label Comments: TAKE 1 CAPSULE BY MOUTH DAILY pravastatin 40 mg tablet 40 mg PO QHS Label Comments: Take 1 tablet by mouth daily at bedtime. cod liver oil Capsule 4 cap PO DAILY metformin 1,000 mg tablet 1,000 mg PO BID Label Comments: Take 1 tablet by mouth twice daily with meals. glimepiride 4 mg tablet 8 mg PO DINNER Label Comments: Take 2 tablets by mouth daily before dinner. levothyroxine 112 mcg tablet 112 mcg PO DAILY Label Comments: Take 1 tablet by mouth once daily. cholecalciferol (vitamin D3) 25 mcg (1,000 unit) Tablet 25 mcg PO DAILY Probiotic 3 billion cell Capsule 3,000 mmu cells PO DAILY Rx Instructions: administer with a meal Trulicity 0.75 mg/0.5 mL Pen Injector 0.75 mg SUBCUT QWEEK Rx Instructions: SUNDAYS Referrals / Follow Up: London Posada MD [Primary Care Provider] - Disposition Disposition (needs filled in before D/C Order can be placed): Custodial Facility
[2022-08-01] MEDS: Insulin Lispro 100 UNIT/ML INSULN.PEN SC (11:50)
[2022-08-01 12:11] LABS: Bedside Glucose 153 mg/dL (74-106)
--- NOTE | 2022-08-01 12:26 | PCM.DC.SUM ---
Providers Date of Admission: 07/29/22 Primary Care Physician: Dr. London Posada MD Reason For Visit: RIB FRACTURES Diagnosis Discharge Diagnosis (1) Multiple fractures of ribs, right side, initial encounter for closed fracture: Status: Acute Code(s): S22.41XA - Multiple fractures of ribs, right side, initial encounter for closed fracture Plan 1. Acute chest pain secondary to rib fractures on the right after mechanical fall ? She has a mildly displaced rib fractures on the right sixth through ninth ribs ? No pneumothorax seen ? Continue with aggressive pain control, I did have an extensive discussion with her on using incentive spirometry and ambulation ? She does not appear to aggressively be using the morphine, oxycodone or Toradol and she states she did walk around the unit yesterday ? PT/OT for evaluation and possible placement at SNF. 2. DM2 ? Continue with her metformin and glimepiride will continue with sliding scale insulin as well as Accu-Cheks ? We will make adjustments as necessary 3. HTN/HLD ? Blood pressures are stable ? Her home blood pressure medications ? Continue with her home statin 4. Hypothyroidism ? Stable ? Continue with Synthroid 5. Anxiety/depression ? Stable ? Continue with her home medications DVT: Lovenox Medications at Discharge Home Medications lisinopril 10 mg tablet 10 mg PO DAILY HEART 12/21/14 multivitamin,fa-uvxe-tplpjpjf 27 mg-0.4 mg tablet 1 tab PO DAILY SUPPLEMENT 12/21/14 cyanocobalamin (vitamin B-12) 2,500 mcg tablet 2,500 mcg PO DAILY SUPPLEMENT 06/23/18 cholecalciferol (vitamin D3) 25 mcg (1,000 unit) tablet 25 mcg PO DAILY SUPPLEMENT 07/29/22 cod liver oil 4 cap PO DAILY SUPPLEMENT 07/29/22 fluoxetine 40 mg capsule 40 mg PO DAILY DEPRESSION 07/29/22 glimepiride 4 mg tablet 8 mg PO DINNER DM 07/29/22 lactobacillus combination no.4 3 billion cell capsule (Probiotic) 3,000 mmu cells PO DAILY SUPPLEMENT 07/29/22 levothyroxine 112 mcg tablet 112 mcg PO DAILY THYROID 07/29/22 metformin 1,000 mg tablet 1,000 mg PO BID DM 07/29/22 pravastatin 40 mg tablet 40 mg PO QHS CHOLESTEROL 07/29/22 dulaglutide 0.75 mg/0.5 mL subcutaneous pen injector (Trulicity) 0.75 mg subcut QWEEK DIABETES 07/30/22 lidocaine 5 % topical patch 2 patch topical DAILY #0 ea 08/01/22 oxycodone 5 mg tablet 5 mg PO Q4H PRN PRN Pain Score 6-10 3 days #10 tabs 08/01/22 Hospital Course Operations None Procedures None Summary of Care Provided Minutes Spent on Discharge: 40 Hospital Course: Per HPI: ALIYAH LEACH, is a 67 F who presents with the above. Patient has PMHx of Type 2 DM, hypertension, h/o colon, cervical and uterine CA, in remission, comes in after a fall was going to the restroom.? Patient stated that she tripped on her feet, and fell and hit her right side against the bathtub.? Patient had severe pain was moving.? She denied any worsening shortness of breath or dizziness or palpitations. In the ED, her vitals show blood pressure 149/57, heart rate 70, respiratory rate 18, temperature 96.8 F, oxygen saturation was 94% on room air. Her white cell count was 17.3, hemoglobin 14.2 platelet count of 387.? CMP was remarkable for BUN of 22, creatinine of 0.83, AST was elevated at 187, ALT 172, ALP 56, total bilirubin 0.40. Chest x-ray showed multiple acute right rib fractures without evidence of pneumothorax Hospital Course: 1. Acute chest pain secondary to rib fractures on the right after mechanical fall?67-year-old female presented to the hospital after a fall with chest pain on the right. She was found to have mildly displaced rib fractures between 6 and ninth ribs. There is no pneumothorax on imaging. Her pain has been decently controlled with pain medication, and I have repeatedly encouraged incentive spirometry use as well as ambulation to help prevent pneumonia. She was evaluated by PT/OT for possible placement and she was excepted to a SNF today. We will plan for discharge today, I discussed with her the plan for discharge she expressed understanding of the risk and benefits of going and would like to go today. 2. Type 2 diabetes, hypertension, hyperlipidemia, hypothyroidism, anxiety, depression are all chronic medical conditions which complicate her care. Her home medications were continued where appropriate Physical Exam Narrative General: Alert, Oriented x3, Cooperative, No apparent distress HEENT: Atraumatic, PERRLA, EOMI, Normocephalic Oral: Moist Mucosa Neck: Supple, No JVD Lungs: Clear to auscultation, Normal air movement, No rhonchi, No wheeze, No rales Cardiovascular: Regular rate, Regular Rhythm, Normal S1, Normal S2, No murmurs, chest pain to palpation on the right Abdomen: Soft, Non Tender, Non-Distended, No Hepato-splenomegaly Extremities: No edema, Capillary Refill Less than 3 Seconds Skin: No rashes, No breakdown Musculoskeletal: No Tenderness to Palpation of Joints or Extremities Neurological: Cranial nerves II-XII grossly intact, Motor Exam 5/5 strength throughout, Sensory exam intact to light touch and pain Psych/Mental Status: Normal Affect, Appropriate Weight / BMI Weight Weight: 250 lb 10.649 oz Body Mass Index (BMI) 42.7 ABG / Lab / Microbiology Data Result Diagrams: 08/01/22 05:07 08/01/22 05:07 Laboratory: Laboratory Results - last 24 hr 07/31/22 15:45: POC Glucose 151 H 07/31/22 22:30: POC Glucose 138 H 08/01/22 05:07: WBC 11.1 H, RBC 4.52, Hgb 12.3, Hct 39.7, MCV 87.8, MCH 27.2, MCHC 31.0 L, RDW Std Deviation 46.0 H, RDW Coeff of Handy 14.3, Plt Count 315, MPV 9.5, Immature Gran % (Auto) 0.600, Neut % (Auto) 72.3 H, Lymph % (Auto) 15.5 L, [place] % (Auto) 8.6, Eos % (Auto) 2.6, Baso % (Auto) 0.4, Absolute Neuts (auto) 8.0 H, Absolute Lymphs (auto) 1.72, Nucleated RBC % 0 08/01/22 05:07: Sodium 137, Potassium 4.3, Chloride 106, Carbon Dioxide 28.0, Anion Gap 3 L, BUN 18, Creatinine 0.52 L, Estim Creat Clear Calc 45.85, Est GFR (MDRD) Af Amer 149, Est GFR (MDRD) Non-Af 123, BUN/Creatinine Ratio 34.4 H, Glucose 123 H, Calcium 9.2 08/01/22 06:03: POC Glucose 135 H 08/01/22 11:46: POC Glucose 153 H Meaningful Use Info Meaningful Use Diagnoses (Choose all that apply): None applicable Discharge Plan Admission Admit Date/Time: 07/29/22 18:55 Attending Provider: Carlo Carbone Primary Care Provider: London Posada Consulting Providers: Mary Lamas Discharge Orders/Prescriptions Prescriptions: New oxycodone 5 mg Tablet 5 mg PO Q4H PRN PRN (Reason: Pain Score 6-10) 3 Days Qty: 10 0RF lidocaine 5 % Adhesive Patch,Medicated 2 patch topical DAILY Qty: 0 0RF Protocol: *Topical Application Instructions APPLICATION INSTRUCTIONS: apply to affected side of chest Continued lisinopril 10 MG tablet 10 mg PO DAILY Label Comments: PREVENT KIDNEY FAILURE multivitamin,ag-cpwf-jpsmzbnk 1 TABLET tablet 1 tab PO DAILY cyanocobalamin (vitamin B-12) 2,500 MCG tablet 2,500 mcg PO DAILY fluoxetine 40 mg capsule 40 mg PO DAILY Label Comments: TAKE 1 CAPSULE BY MOUTH DAILY pravastatin 40 mg tablet 40 mg PO QHS Label Comments: Take 1 tablet by mouth daily at bedtime. cod liver oil Capsule 4 cap PO DAILY metformin 1,000 mg tablet 1,000 mg PO BID Label Comments: Take 1 tablet by mouth twice daily with meals. glimepiride 4 mg tablet 8 mg PO DINNER Label Comments: Take 2 tablets by mouth daily before dinner. levothyroxine 112 mcg tablet 112 mcg PO DAILY Label Comments: Take 1 tablet by mouth once daily. cholecalciferol (vitamin D3) 25 mcg (1,000 unit) Tablet 25 mcg PO DAILY Probiotic 3 billion cell Capsule 3,000 mmu cells PO DAILY Rx Instructions: administer with a meal Trulicity 0.75 mg/0.5 mL Pen Injector 0.75 mg SUBCUT QWEEK Rx Instructions: SUNDAYS Referrals / Follow Up: London Posada MD [Primary Care Provider] - Disposition Disposition (needs filled in before D/C Order can be placed): Detention Facility Charges/Coding Visit Charges Inpatient E&M: 36704 Disch Hosp
--- NOTE | 2022-08-01 13:45 | CASEMGMT ---
Social Work Precert has been obtained and pt can discharge to [facility] today. Physician updated and pt is ready for discharge today. 7000 exemption form completed in HENS and sent, along with discharge orders and covid results to [facility] via [facility]. Transportation arranged with Physicians for 1500 poultry picker via [employer]. Pt notified of cost and agreeable to transportation. Pt and daughter updated on discharge plan and agreeable to discharge plan. Disposition: [facility], skilled level of care under convalescent stay. CARLOS Richards
[2022-08-01 15:00] VITALS: BP 140/66; PULSE 81; RESP 16; TEMP 36.7; O2SAT 94
== END 2022-08-01 15:04 | disposition skilled nursing facility (03) | DRG 184 ==
LOC: ED 19:05 → MS3 19:10
PROVIDERS: Admitting Provider Internal Medicine; Emergency Provider Emergency Medicine; PCP Family Medicine; Visit Provider Family Medicine
DX: S22.41XA Multiple fractures of ribs, right side, initial encounter for closed fracture (principal); Z68.41 Body mass index [BMI] 40.0-44.9, adult; E03.9 Hypothyroidism, unspecified; E11.9 Type 2 diabetes mellitus without complications; E66.01 Morbid (severe) obesity due to excess calories; I10 Essential (primary) hypertension; E78.00 Pure hypercholesterolemia, unspecified; F41.9 Anxiety disorder, unspecified; W01.198A Fall on same level from slipping, tripping and stumbling with subsequent striking against other object, initial encounter; Z79.84 Long term (current) use of oral hypoglycemic drugs; F32.A Depression, unspecified; Y93.89 Activity, other specified; Y92.9 Unspecified place or not applicable; Z79.890 Hormone replacement therapy; Z79.899 Other long term (current) drug therapy
CPT/HCPCS: 36415; 71101; 80048; 80053; 82962; 85025; 87426; 97110; 97162; 97166; 97530; 97535; 99284; J7030; A4216

== ENCOUNTER 2022-09-02 12:55 | Outpatient (RCR) | payer MEDICARE, SELFPAY | END 2022-09-23 23:59 | disposition home or self-care (01) | LOC: WC 12:55 | PROVIDERS: PCP Family Medicine; Visit Provider Surgery | DX: Z09 Encounter for follow-up examination after completed treatment for conditions other than malignant neoplasm (principal) | CPT/HCPCS: 99211; G0463 ==

== ENCOUNTER 2024-10-23 01:08 | Emergency (ER) | payer MEDICARE, SELFPAY ==
[2024-10-23] VITALS (8 sets, daily range): BP systolic 104–217; BP diastolic 53–87; PULSE 91–922; RESP 18–22; TEMP 36.7–38.3; O2SAT 92–98; BMI 41.6
--- NOTE | 2024-10-23 01:30 | CT_ITS ---
PROCEDURE: ABDOMEN/PELVIS W IV CONT ONLY REASON FOR EXAM: Right-sided abdominal pain, nausea and vomiting. TECHNIQUE: Abdomen and pelvis CT with intravenous contrast. One or more dose reduction techniques were used (e.g., Automated exposure control, adjustment of the mA and/or kV according to patient size, use of iterative reconstruction technique). IV CONTRAST: 100 mL Isovue 370 COMPARISON: None. FINDINGS: Lung bases: Clear Liver: The liver is non cirrhotic. A nodule with discontinuous peripheral nodular enhancement in the right hepatic lobe measures 1.2 x 3 cm, consistent with a hemangioma Gallbladder: Status post cholecystectomy Spleen: Normal Pancreas: Normal Adrenals: Normal Kidneys: An obstructing 9 mm calculus is located in the right ureteropelvic junction with mild hydronephrosis and perinephric stranding. The distal right ureter is normal. The left kidney is atrophic compared to the right. A cluster of calcifications is noted in the lower pole calyx of the left kidney. Left ureter is normal. Bladder: Decompressed. Contains gas. Reproductive Organs: Status post hysterectomy Bowel: Moderate amount of stool in the colon. No obstruction or acute inflammatory abnormality. The rectosigmoid anastomosis is patent Appendix: Normal. Lymph nodes: No suspicious lymph node enlargement. Vasculature: Mild aortoiliac atherosclerosis Peritoneum / Retroperitoneum: No ascites. No free air. Bones: Degenerative changes in the lumbar spine CT/Abdomen/Pelvis W IV Cont ONLY IMPRESSION: OBSTRUCTING 9 MM CALCULUS IN THE RIGHT URETEROPELVIC JUNCTION WITH MILD HYDRONE PHROSIS. GAS IN THE URINARY BLADDER, WHICH CAN BE SEEN IN INFECTION. Reading Location: [id number]
--- NOTE | 2024-10-23 01:31 | ED.VIS.GI ---
HPI HPI - GI History of Present Illness Chief Complaint: Abd Pain Informant: patient Narrative Narrative: 69-year-old female states she started having abdominal pain on the right side 7 or 8 hours ago, it came on gradually, has progressed throughout the evening, and subsequently she started vomiting and every time she takes a sip of something she vomits. No blood or bilious emesis. She had a small bowel movement earlier, small amount of liquid, which is typical for her since her partial colectomy. She has had multiple abdominal surgeries in the past. Never had a bowel obstruction that she knows of. PFSH [facility] Medical History H/O cancer of uterus h/o cervical h/o colon cancer Depression hypercholesterolemia Diabetes HTN (hypertension) Home Medications ?Medication ?Instructions ?Recorded ?Last Taken ?Type lisinopril 10 mg tablet 10 mg PO DAILY HEART 12/21/14 07/29/22 History multivitamin,dl-ezjb-yconxlcx 27 1 tab PO DAILY SUPPLEMENT 12/21/14 4 Days Ago History mg-0.4 mg tablet ~07/25/22 cyanocobalamin (vitamin B-12) 2,500 mcg PO DAILY SUPPLEMENT 06/23/18 07/29/22 History 2,500 mcg tablet cholecalciferol (vitamin D3) 25 25 mcg PO DAILY SUPPLEMENT 07/29/22 07/29/22 History mcg (1,000 unit) tablet fluoxetine 40 mg capsule 40 mg PO DAILY DEPRESSION 07/29/22 07/29/22 History glimepiride 4 mg tablet 4 mg PO DINNER DM 07/29/22 07/29/22 History levothyroxine 112 mcg tablet 112 mcg PO DAILY THYROID 07/29/22 07/29/22 History metformin 1,000 mg tablet 1,000 mg PO BID DM 07/29/22 07/29/22 History pravastatin 40 mg tablet 40 mg PO QHS CHOLESTEROL 07/29/22 07/28/22 History dulaglutide 0.75 mg/0.5 mL 0.75 mg subcut QWEEK DIABETES 07/30/22 07/27/22 08:00 History subcutaneous pen injector (Trulicity) oxycodone 5 mg tablet 5 mg PO Q4H PRN PRN Pain Score 08/01/22 Unknown Rx 6-10 3 days #10 tabs melatonin 3 mg tablet,extended 3 mg PO QHS 10/23/24 Unknown History release (Meladox) Allergy/AdvReac Type Severity Reaction Status Date / Time Penicillins (PCN) Allergy Swelling Verified 10/23/24 01:09 tolterodine tartrate (From Allergy Swelling Verified 10/23/24 01:[address] [facility]) Family History Father Colon cancer Mother Diabetes CVA (cerebral vascular accident) Surgical History S/P colonoscopy (~06/23/18) H/O colonoscopy S/P appendectomy History of laparoscopic cholecystectomy History of bilateral knee replacement S/P hysterectomy S/P colectomy Social History household members: spouse and family Smoking Status: Never smoker alcohol intake: never substance use type: does not use ROS ROS ED Constitutional Constitutional ED: Denies chills or fever(s) Eyes Eyes: Denies change in vision or diplopia ENT ENT ED: Denies rhinorrhea or sore throat Cardiovascular Cardiovascular: Denies chest pain or palpitations Respiratory/Chest Respiratory/Chest: Denies cough or dyspnea Gastrointestinal Gastrointestinal: Reports abdominal pain, nausea and vomiting; Denies diarrhea Genitourinary Genitourinary ED: Denies dysuria or hematuria Musculoskeletal Musculoskeletal: Denies back pain or neck pain Integumentary Denies abscess or rash Neurologic Neurologic: Denies headache(s), paresthesias or weakness Psychiatric Psychiatric: Denies anxiety or suicidal thoughts EXAM Physical Exam Const Vital Signs: 10/23/24 01:09 10/23/24 03:08 10/23/24 03:59 Temperature 98.3 F 101 F H Temperature Source Oral Oral Pulse Rate 922 H 92 105 H Respiratory Rate 20 H 18 20 H Blood Pressure 217/87 H 193/67 H 193/67 H Blood Pressure Mean 130 109 109 Pulse Ox 96 92 93 Oxygen Delivery Method Room Air Room Air Room Air 10/23/24 04:59 Temperature 98.6 F Temperature Source Oral Pulse Rate 112 H Respiratory Rate 20 H Blood Pressure 129/59 H Blood Pressure Mean 82 Pulse Ox 92 Oxygen Delivery Method Positive well nourished and well developed General Appearance ED: well developed and NAD HEENT Reports moist mucous membranes normocephalic and atraumatic Eyes PERRL and EOMs intact bilaterally Neck full ROM and supple Resp normal respiratory effort and clear to auscultation bilaterally Cardio regular rate, regular rhythm and no murmurs GI non-distended GI Narrative: Abdominal obesity limits exam. Tender throughout the right side mostly in the right lower quadrant no guarding or rebound. Absent bowel sounds. No CVA tenderness. Palpation: soft Back/Spine no CVA tenderness General Back: other FROM Extremity normal to inspection General Extremety ED: Negative for edema, pulses abnormal or tenderness General Extremity: Negative for edema or pulses abnormal Neuro oriented x3, CN's II-XII intact bilaterally and no sensory deficits noted Sensorium / Orientation: awake and alert Motor Exam: strength 5/5 throughout Skin no rashes or lesions noted and no wounds Sepsis Attestation Sepsis Alert: Yes Sepsis Attestation: Agree w/Sepsis Date exam was performed: 10/23/24 Time exam was performed: 05:40 Possible Source of Sepsis: Genitourinary Sepsis Organ Dysfunction Criteria Present: SBP decrease of more than 40 mmHg and Lactic Acid > 2 mmol/L Fluid Resuscitation Fluid resuscitation indicated?: Yes Fluid Resuscitation ordered: Lesser volume fluid bolus ordered Amount of fluid ordered: 2,000 Reason for lesser fluid bolus:: Concern for fluid overload (due to obstructive uropathy in context of morbid obesity ) MDM MDM MDM Narrative Medical decision making narrative: Patient states she is concerned about having a bowel obstruction. She states the pain came on gradually not suddenly, no history of kidney stones that she knows of, no problems urinating recently. Started with labs and a CT, she has a significant leukocytosis 22.1 with a strong leftward shift but no bandemia, renal function is good, she has a lactic acidosis which was determined because she has an anion gap elevation and a bicarb that is 20.5, I reviewed the CT results as well as the images, I agree with the results, it basically shows a 9 mm obstructing UPJ stone, along with right perinephric stranding/hydronephrosis, and air in the urinary tract suspicious for infection. Therefore blood cultures were sent because I am concerned she is getting septic, she was empirically treated with IV Rocephin, and I had nursing attempt to get a urine specimen. The patient was okay with straight cathing because she is incontinent, but when they attempted this, it appears that with a catheter in the urethra there is urine coming around it but not into the catheter, this was the case with a Baer catheter as well. The patient states she has some type of fistula down there. This was not evident on the CT scan. It is Thursday morning we do not have urology call coverage this weekend, therefore this patient will need to be transferred emergently as she will likely need urgent urologic procedure to remove the stone. [facility] Does not have any beds/capacity. Discussed with [facility] Tito Singh, accepted there by Dr. Tamez. Lab Data Attestation: I reviewed the patient's lab results. Labs: Laboratory Results - last 24 hr 10/23/24 10/23/24 01:43 04:24 WBC 22.1 H RBC 5.01 Hgb 14.3 Hct 43.0 MCV 85.8 MCH 28.5 MCHC 33.3 RDW Std Deviation 41.3 RDW Coeff of Handy 13.2 Plt Count 329 MPV 9.3 Immature Gran % (Auto) 0.700 Neut % (Auto) 92.8 H Lymph % (Auto) 3.3 L [place] % (Auto) 2.9 Eos % (Auto) 0.0 Baso % (Auto) 0.3 Absolute Neuts (auto) 20.5 H Absolute Lymphs (auto) 0.73 L Nucleated RBC % 0 Differential Comment SCANNED Toxic Granulation 1+ Sodium 133 Potassium 4.2 Chloride Direct 97 Carbon Dioxide 20.5 L Anion Gap 16 H BUN 25 H Creatinine 1.13 Estim Creat Clear Calc 55.38 Est GFR (MDRD) Non-Af 52 L BUN/Creatinine Ratio 21.7 H Glucose 239 H Lactic Acid 3.5 H* Calcium 9.3 Total Bilirubin 0.52 AST 20 ALT 19 Alkaline Phosphatase 58 Total Protein 6.9 Albumin 3.9 Globulin 3.0 Albumin/Globulin Ratio 1.3 Lipase 43 Radiography Diagnostic Testing: Clinical Impression(s) from Imaging Studies Abdomen/Pelvis CT 10/23/24 01:30 IMPRESSION: OBSTRUCTING 9 MM CALCULUS IN THE RIGHT URETEROPELVIC JUNCTION WITH MILD HYDRONEPHROSIS. GAS IN THE URINARY BLADDER, WHICH CAN BE SEEN IN INFECTION. Reading Location: [id number] Management Discussion w/another healthcare provider: Vendor Management Associate Critical Care Time Critical Care Time: Yes Critical care time (excluding procedures): 30-74 minutes (38 min), Including time spent:, Discussing w/Patient &/or Family/Chronic Care Nurse, Discussing w/Consultants, Arranging Admission or Transfer and Performing Direct Patient Care at Bedside Discharge Plan Triage Chief Complaint: Abd Pain ED Provider: Kurtis Weber Dx/Rx/DC Orders Clinical Impression: Sepsis, Acute unilateral obstructive uropathy, Complicated UTI (urinary tract infection), Ureterolithiasis Prescriptions: No Action lisinopril 10 MG tablet 10 mg PO DAILY Patient Comments: PREVENT KIDNEY FAILURE multivitamin,xi-exuu-zvjkquwh 1 TABLET tablet 1 tab PO DAILY cyanocobalamin (vitamin B-12) 2,500 MCG tablet 2,500 mcg PO DAILY fluoxetine 40 mg capsule 40 mg PO DAILY Patient Comments: TAKE 1 CAPSULE BY MOUTH DAILY pravastatin 40 mg tablet 40 mg PO QHS Patient Comments: Take 1 tablet by mouth daily at bedtime. metformin 1,000 mg tablet 1,000 mg PO BID Patient Comments: Take 1 tablet by mouth twice daily with meals. glimepiride 4 mg tablet 4 mg PO DINNER Patient Comments: Take 2 tablets by mouth daily before dinner. levothyroxine 112 mcg tablet 112 mcg PO DAILY Patient Comments: Take 1 tablet by mouth once daily. cholecalciferol (vitamin D3) 25 mcg (1,000 unit) Tablet 25 mcg PO DAILY Trulicity 0.75 mg/0.5 mL Pen Injector 0.75 mg SUBCUT QWEEK Rx Instructions: SUNDAYS oxycodone 5 mg Tablet 5 mg PO Q4H PRN PRN (Reason: Pain Score 6-10) 3 Days Qty: 10 0RF melatonin [Meladox] 3 mg tablet extended release 3 mg PO QHS Primary Care Provider: London Posada Referrals: London Posada MD [Primary Care Provider] - Print Language: Mexican Disposition Disposition: Acute Care Hospital Discharge Location: [facility]
[2024-10-23] MEDS: Ondansetron 4 MG/2 ML Vial IV (01:45)
[2024-10-23] MEDS: 0.9% Normal Saline (1000mL) 1,000 ML 999 ML IV ×3 (01:45→06:48)
[2024-10-23] MEDS: Morphine 4 MG/ML Syringe IV ×2 (01:46→04:19)
[2024-10-23 01:56] LABS: Absolute Lymphocyte Count 0.73 X10^3/uL (0.83-4.51); Absolute Neutrophil Count 20.5 X10^3/uL (2.0-7.7); Basophil# 0.06 X10^3/uL; Basophil% 0.3 % (0-1); Eosinophil# 0.01 X10^3/uL; Hemoglobin 14.3 g/dL (12.0-15.0); Lymphocyte # 0.73 X10^3/ul (0.83-4.51); Lymphocyte % 3.3 % (19-41); Mean Corp Hgb Conc 33.3 g/dL (32-36); Mean Corpuscular Hgb 28.5 pg (27.0-32.0); Mean Corpuscular Volume 85.8 fL (81-99); Mean Platelet Vol. 9.3 fl (6.2-12.0); Monocyte# 0.65 X10^3/uL; Monocyte% 2.9 % (0-10); NRBC Flagged by Analyzer 0 % (0-5); Neutrophil # 20.47 X10^3/uL (2.7-7.7); Neutrophil % 92.8 % (47-70); POSITIVE DIFFERENTIAL YES; Platelet Count 329 K/mm3 (150-450); RBC Distribution Width CV 13.2 % (11.6-14.6); RBC Distribution Width SD 41.3 fl (35.1-43.9); Red Blood Count 5.01 M/mm3 (4.2-5.4); White Blood Count 22.1 K/mm3 (4.4-11.0)
[2024-10-23 01:57] LABS: Differential Indicated SCAN CRITERIA MET
[2024-10-23 02:18] LABS: ALB/GLOB Ratio 1.3 RATIO (0.9-2.4); AST(SGOT) 20 U/L (<=31); Alanine Aminotransfer ALT/SGPT 19 U/L (<=34); Albumin, Serum 3.9 g/dL (3.4-4.8); Alkaline Phosphatase 58 U/L (35-104); Anion Gap 16 (5-15); BUN 25 mg/dL (4-19); BUN/Creat Ratio 21.7 RATIO (10-20); Calcium 9.3 mg/dL (7.6-11.0); Carbon Dioxide 20.5 mmol/L (22.0-29.0); Chloride 97 mmol/L (96-108); Creatinine, Serum 1.13 mg/dL (0.70-1.20); Differential Comment SCANNED; EST Glomerular Filtration Rate 52 (>60); Estimated Creatinine Clearance 55.38 ml/min (50-250); Glucose 239 mg/dL (70-99); Lipase 43 U/L (13-75); Potassium 4.2 mmol/L (3.3-5.1); Protein, Total 6.9 g/dL (5.9-8.4); Sodium Level 133 mmol/L (133-145); Total Bilirubin 0.52 mg/dL (0.00-1.30); Toxic Granulation 1+
[2024-10-23] MEDS: Acetaminophen 500 MG Tablet 1000 MG PO (04:19)
--- NOTE | 2024-10-23 04:21 | ED.RN ---
CALLED [facility] FOR TRANSFER, NO UROLOGY BEDS.
[2024-10-23] MEDS: Ceftriaxone 1 GM/50 ML BAG IV (04:47)
[2024-10-23 05:30] LABS: Lactic Acid 3.5 mmol/L (0.0-2.0)
--- NOTE | 2024-10-23 05:35 | ED.RN ---
FAXED FACE SHEET, AND RECEIVED CONFIRMATION.
--- NOTE | 2024-10-23 06:08 | ED.RN ---
WAIT BED AT [facility]
[2024-10-23] MEDS: fentaNYL 100 MCG/2 ML Ampul 50 MCG IV (08:23)
[2024-10-23 09:13] LABS: Bedside Glucose 225 mg/dL (74-106)
== END 2024-10-23 08:50 | disposition short-term general hospital (02) ==
PROVIDERS: Emergency Provider Emergency Medicine; PCP Family Medicine; Visit Provider Emergency Medicine
DX: A41.9 Sepsis, unspecified organism (principal); E11.9 Type 2 diabetes mellitus without complications; R10.9 Unspecified abdominal pain; N13.6 Pyonephrosis; Z90.710 Acquired absence of both cervix and uterus; I10 Essential (primary) hypertension; N20.1 Calculus of ureter; Z85.038 Personal history of other malignant neoplasm of large intestine; E78.00 Pure hypercholesterolemia, unspecified; Z85.42 Personal history of malignant neoplasm of other parts of uterus; Z79.899 Other long term (current) drug therapy; Z79.84 Long term (current) use of oral hypoglycemic drugs; F32.A Depression, unspecified; Z90.49 Acquired absence of other specified parts of digestive tract; Z96.653 Presence of artificial knee joint, bilateral
CPT/HCPCS: 51702; 74177; 80053; 81001; 82962; 83605; 83690; 85025; 87040; 87077; 87186; 96361; 96365; 96366; 96375; 96376; 99285; Q9967; A4216; J2405

== ENCOUNTER → 2025-06-28 | Outpatient (CLI) | payer MEDICARE, SELFPAY ==
--- OUTSIDE RECORDS SUMMARY | 2025-06-28 07:02 | XMS RPT_ITS | CCD ---
Author Organization [facility] Care Team Providers Care Power Manager Name Role Phone TiGilbert singh P Unavailable Unavailable TimaximeanoGilbert P Unavailable Unavailable No Doctor Assigned, Nodr Unavailable Unavail able Gilbert Bryan P Unavailable Unavailable Tizzano, Gilbert P Unavailable Unavailable No Doctor Assigned, Nodr Unavailable Unavail able Bobby Grady MD Primary Care Provider Bobby Grady MD Primary Care Provider Bobby Grady MD Primary Care Provider Dr. Bobby Grady Primary Care Provider Dr. Eva Isaac Emergency Provider Dr. Mary Lamas Admit Provider Dr. Mary Lamas Attending Provider Dr. Mary Lamas Other Provider Dr. Carlo Carbone Attending Provider Dr. Carlo Carbone Other Provider Bobby Grady MD Primary Care Provider Bobby Grady MD Primary Care Provider Nisha GOLF CLUB MANAGER.Ynes DALLAS Unavailable Carline GOLF CLUB MANAGER.MIGRATORY GAME BIRD BIOLOGIST, Amparo Bell Unavailable [phone] Bobby Grady MD Unavailable Maya GRIFFIN, Fritz Unavailable Mary BLANCHARD, Rogers Unavailable Ronnie RN, Viridiana Unavailable Unavailable Mary RN, Rogers Unavailable Ysabel GRIFFIN, Dr. Callahan Primary Care Provider Gus GRIFFIN, Dr. Hull Attending Provider Gus GRIFFIN, Dr. Hull Emergency Provider Ysabel GRIFFIN, Dr. Callahan Referring Provider Behzad GRIFFIN, Dr. Julien Attending Provider Liu GRIFFIN, Dr. Mukherjee Attending Provider RADHAMES CODY Attending Unavailable ANUSHKA, JACQUE Referring Unavailable YSABEL, BOBBY J Primary Care Unavailable RUI, CONSTANCE Referring Unavailable YSABEL, BOBBY J Primary Care Unavailable Beto Olivares Attending Unavailable Ysabel, Bobby Primary Care Unavailable SattiJermainea Referring Unavailable Ysabel, Bobby Primary Care Unavailable Kurtis Noyola Attending Unavailable SatLonny hong Attending Unavailable SattiJermainea Referring Unavailable Salyer, Bobby Primary Care Unavailable Ysabel, Bobby Primary Care Unavailable Ysabel, Bobby Referring Unavailable BehzadWily beck Attending Unavailable Salyer, Bobby Primary Care Unavailable Ysabel, Bobby Referring Unavailable SattiLonny Attending Unavailable Ysabel, Bobby Referring Unavailable Salyer, Bobby Primary Care Unavailable Wily Wen Attending Unavailable Ysabel GRIFFIN, Dr. Callahan Primary Care Physician Dr. Beto Olivares MD Attending Physician Dr. Lonny Hatfield MD Referring Provider Dr. Lonny Hatfield MD Attending Physician Dr. Bobby Grady MD Referring Provider Dr. Wily Wen MD Attending Physician YSABEL, BOBBY J Primary Care Unavailable JADA OSBORN Referring Unavailable JACQUE REVELES Attending Unavailable YSABEL, BOBBY J Primary Care Unavailable YNES CAMERON Referring Unavailable LOWE, DIMITRIS Referring Unavailable YSABEL, BOBBY J Primary Care Unavailable YSABEL, BOBBY J Primary Care Unavailable SHITAL RAY Attending Unavailable RUI, CONSTANCE Referring Unavailable LOWE, DIMITRIS Referring Unavailable YSABEL, BOBBY Santana Primary Care Unavailable LOWE, DIMITRIS Referring Unavailable YSABEL, BOBBY Santana Primary Care Unavailable LOWE, DIMITRIS Referring Unavailable YSABEL, BOBBY Santana Primary Care Unavailable YSABEL, BOBBY Santana Primary Care Unavailable YSABEL, BOBBY Santana Attending Unavailable RUI, CONSTANCE Referring Unavailable YSABEL, BOBBY Santana Primary Care Unavailable RUI, CONSTANCE Attending Unavailable YSABEL, BOBBY Santana Referring Unavailable YSABEL, BOBBY Santana Primary Care Unavailable YSABEL, BOBBY Santana Referring Unavailable YSABEL, BOBBY Santana Primary Care Unavailable YSABEL, BOBBY Santana Referring Unavailable YSABEL, BOBBY Santana Primary Care Unavailable YSABEL, BOBBY Santana Primary Care Unavailable YSABEL, BOBBY Santana Attending Unavailable YSABEL, BOBBY Santana Primary Care Unavailable YNES CAMERON Attending Unavailable YSABEL, BOBBY Santana Primary Care Unavailable HAAGEN, YNES Referring Unavailable YSABEL, BOBBY Santana Primary Care Unavailable YSABEL, BOBBY Santana Attending Unavailable YSABEL, BOBBY Santana Attending Unavailable YSABEL, BOBBY Santana Primary Care Unavailable YSABEL, BOBBY Santana Primary Care Unavailable JO ANN RUBIO Referring Unavailable KURTIS NOYOLA Referring Unavailab le YSABEL, BOBBY Santana Primary Care Unavailable JIMENZE ANGULO Admitting Unavailable FRITZ TREJO Attending Unavailable JOSE CRENSHAW Consulting Unavailable [place] Referring Unavailable YSABEL, BOBBY Santana Primary Care Unavailable IRENA, JADA Santana Admitting Unavailable IRENA, JADA Santana Attending Unavailable YSABEL, BOBBY Santana Primary Care Unavailable TRAMAINE DASH Admitting Unavailable TRAMAINE DASH Attending Unavailable YSABEL, BOBBY Santana Primary Care Unavailable LOWE, DIMITRIS Attending Unavailable YSABEL, BOBBY Santana Primary Care Unavailable LOWE, DIMITRIS Attending Unavailable YSABEL, BOBBY Santana Primary Care Unavailable IRENA, JADA Santana Admitting Unavailable IRENA, JADA Santana Attending Unavailable YSABEL, BOBBY Santana Primary Care Unavailable YSABEL, BOBBY Santana Primary Care Unavailable LAURA SOLIS Admitting Unavailable ROSEMARY TANG Attending Unavailable CRISTOFER MILLS Consulting Unavailable MANUELE, DIMITRIS Attending Unavailable YSABEL, BOBBY Santana Primary Care Unavailable IRENA, RADHAMESOPHCOMFORT Santana Admitting Unavailable IRENA, JADA Santana Attending Unavailable YSABEL, BOBBY Santana Primary Care Unavailable Allergies Allergy Classification Reported Allergen(s) Allergy Type Date of Onset Reaction(s) Facility (1 source) penicillin; Translations: [penicillin] Drug Allergy [facility] Repository (1 source) tolterodine; [facility]ations[facility] Penicillins; Translations: [PENICILLINS] Drug Allergy 08-08-2005 [facility] Work Phone: (20 sources) tolterodine; Translations: [TOLTERODINE TARTRATE] Drug Allergy 08-08-2005 [facility] Work Phone: (20 sources) Penicillins Drug Allergy 08-08-2005 [facility] Work Phone: (5 sources) Penicillins Allergy to substance 03-13-2020 [facility] (20 sources) Penicillins Drug Allergy 08-08-2005 [facility] (1 source) Penicillins Drug allergy (disorder) 06-07-2025 [facility] Repository (1 source) tolterodine Drug Allergy 06-07-2025 [facility] Repository Medications Current Medications Medication Drug Class(es) Dates Sig (Normalized) Sig (Original) acetaminophen 325 mg / oxyCODONE hydrochloride 5 mg oral tablet (1 source) Opioid Agonist Start: 12-12-2024 End: 12-15-2024 take 1 tablet by mouth every six hours as needed for pain oxyCODONE-acetaminop hen (PERCOCET) 5-325 mg tablet Indications: Ureteral stone Take 1 tablet by mouth every 6 hours as needed for pain for up to 3 days. 12 tablet 12/12/2024 12/15/2024 Active Blood-Glucose Meter (ACCU-CHEK ROBIN PLUS METER) misc (20 sources) Start: 02-22-2014 Blood-Glucose Meter (ACCU-CHEK ROBIN PLUS METER) misc Indications: Type 2 diabetes mellitus with proteinuria or albuminuria 1 Each once daily. 1 Each 0 02/22/2014 Active Comment on above: 1 Each once daily. cefdinir 300 mg oral capsule (1 source) Cephalosporin Antibacterial Start: 06-07-2025 take 1 capsule by mouth twice daily Cefdinir 300 mg capsule Active 300 mg PO TWICE A DAY June 07, 2025 12:00am Complies with drug therapy cholecalciferol 0.125 mg oral capsule (20 sources) Vitamin D Start: 11-28-2024 take 1 capsule by mouth once daily Cholecalciferol (Vitamin D3) 125 mcg (5,000 unit) capsule Active 125 ug PO daily November 28, 2024 12:00am Complies with drug therapy Start: 07-29-2022 End: 11-28-2024 take 1 tablet by mouth once daily Cholecalciferol (Vitamin D3) 25 mcg (1,000 unit) Tablet Discontinued 25 ug PO DAILY July 29, 2022 1:00am November 28, 2024 10:09am SUPPLEMENT take 1 capsule by [facility] once daily Cholecalciferol, Vitamin D3, 125 mcg (5,000 unit) cap Take 125 Units by mouth once daily. Last dose 12/07/24 for OR 12/12/24 Active take 1 capsule by [facility] once daily Cholecalciferol, Vitamin D3, 25 mcg (1,000 unit) cap Take 1,000 Units by mouth once daily. Active Comment on above: Take 1,000 Units by mouth once daily. ciprofloxacin 250 mg oral tablet (5 sources) Quinolone Antimicrobial Start: 11-22-19 End: 11-29-19 take 1 tablet by mouth twice daily ciprofloxacin HCl (CIPRO) 250 mg tablet Take 1 tablet by mouth two times a day for 7 days. 14 tablet 11/21/2024 11/28/2024 Active clotrimazole 10 mg oral lozenge (16 sources) Azole Antifungal Start: 11-04-19 End: 11-18-19 take 1 tablet by mouth five times daily clotrimazole (MYCELEX) 10 mg isabell Use 1 Isabell as instructed five times a day for 14 days. Dissolve in mouth 70 tablet 11/03/2024 11/17/2024 Active Cod Liver Oil (3 sources) Start: 07-29-20 22 take 4 capsules by mouth once daily Cod Liver Oil Active 4 CAP PO DAILY July 29, 2022 12:00am CYANOCOBALAMIN/COBAMA MIDE (B12 SUBLINGUAL) (20 sources) Start: 05-04-20 17 take 1 tablet under the tongue once daily CYANOCOBALAMIN/COBAM AMIDE (B12 SUBLINGUAL) Dissolve 1 tablet under the tongue once daily. Last dose 12/07/24 for OR 12/12/24 05/04/2017 Active Start: 05-04-2017 take 1 tablet under the tongue once daily CYANOCOBALAMIN/COBAMAMIDE (B12 SUBLINGUA L) Dissolve 1 tablet under the tongue once daily. 05/04/2017 Active CYANOCOBALAMIN/C OBAMAMIDE (B12 SUBLINGUAL) Dissolve under the tongue. Active CYANOCOBALAMIN/C OBAMAMIDE (B12 SUBLINGUAL) Dissolve under the tongue. 0 Active Comment on above: Dissolve under the t ongue. 0.5 ml dulaglutide 3 mg/ml auto-injector (20 sources) GLP-1 Receptor Agonist Start: 11-28-2024 Dulaglutide (Trulicity) 1.5 mg/0.5 mL pen injector Active 1.5 mg SC EVERY WEEK November 28, 2024 12:00am Complies with drug therapy Start: 12-28-2023 End: 11-05-2024 dulaglutide (TRULICITY) 1.5 mg/0.5 mL pen injector Inject 1.5 mg subcutaneously one time a week. Inject once per week. Discard Pen After 8.5 mL 07/05/2024 Active Start: 10-02-2022 End: 11-26-2023 dulaglutide (TRULICITY) 1.5 mg/0.5 mL pen injector Indications: Type 2 diabetes mellitus without complication, without long-term current use of insulin (HCC) , Diabetic polyneuropathy associated with type 2 diabetes mellitus (HCC) Inject 1.5 mg subcutaneously one time a week. Inject once per week. Discard Pen After 12 Each 3 05/12/2023 Active Start: 06-20-2020 End: 11-28-2024 Dulaglutide (Trulicity) 0.75 mg/0.5 mL Pen Injector Discontinued 0.75 mg SC EVERY WEEK July 30, 2022 1:00am November 28, 2024 10:09am DIABETES AYS Comment on above: Inject 0.75 mg subcu taneously one time a week. Inject dose once per week. Discard Pen After Inject 1.5 mg subcut aneously one time a week. Inject once per week. Discard Pen After FLUoxetine 40 mg oral capsule (20 sources) Serotonin Reuptake Inhibitor Start: End: take 1 capsule by mouth once daily Fluoxetine 40 mg capsule Active 40 mg PO DAILY July 29, 2022 1:00am DEPRESSION Complies with drug therapy Start: 04-24-2021 End: 09-23-2021 take 1 capsule by mouth once daily FLUoxetine (PROZAC) 20 mg capsule Indications: Recurrent major depression in partial remission (HCC) Take 1 capsule by mouth once daily. 90 capsule 1 04/24/2021 09/23/2021 Discontinued (Duplicate Entry) Comment on above: Take 1 capsule by mo [facility] once daily. Incontinence Pad, Liner, Disp (POISE PADS) pads (20 sources) Start: 01-25-20 Incontinence Pad, Liner, Disp (POISE PADS) pads Indications: Vesicovaginal fistula , Right ureteral calculus 1 pad five times a day. 72 each 3 01/24/2025 Active iv contrast (will be provided with radiology test) (1 source) Start: 03-01-20 End: 03-02-20 inject 1 dose intravenously once iv contrast (will be provided with radiology test) Indications: Other symptoms and signs involving the nervous system , Visual hallucination , Malignant neoplasm of colon, unspecified part of colon (HCC) MRI Brain Inject, intravenously, once for 1 dose.No IV access, insert saline lock prior to beginning of sedation, infusion, injection of imaging exam.Discontinue saline lock post exam. If Pt. has a central line or IVAD, may access for administration according to line specific nursing protocol.Once exam is complete flush line and de-access according to line specific nursing protocol in the MR contrast administration guidelines link 1 each 03/01/2025 03/02/2025 Active levothyroxine sodium 0.112 mg oral tablet (20 sources) l-Thyroxine Start: 11-13-19 End: 04-02-20 take 1 tablet by mouth once daily Levothyroxine 112 mcg tablet Active 112 ug PO DAILY July 29, 2022 1:00am THYROID Complies with drug therapy Start: 05-02-2021 End: 08-07-2021 take 1 tablet by mouth once daily levothyroxine (SYNTHROID) 112 mcg tablet Take 1 tablet by mouth once daily. 90 tablet 05/02/2021 08/07/2021 Discontinued Comment on above: [facility] losartan potassium 25 mg oral tablet (20 sources) Angiotensin 2 Receptor Traci Start: 10-31-2024 End: 01-18-2025 take 1 tablet by mouth twice daily Losartan 25 mg tablet Active 25 mg PO TWICE A DAY November 28, 2024 12:00am Complies with drug therapy magnesium oxide 400 mg oral tablet (20 sources) Start: 03-09-2025 End: 04-08-2025 take 1 tablet by mouth twice daily magnesium oxide (MAG-OX) 400 mg (241.3 mg magnesium) tablet Take 1 tablet by mouth two times a day. 60 tablet 3 03/09/2025 Active Start: 11-28-2024 take 1 tablet by daniel th twice daily Magnesium Oxide 420 mg tablet Active 420 mg PO TWICE A DAY November 28, 2024 12:00am Complies with drug therapy Start: 10-31-2024 End: 03-04-2025 take 1 tablet by mouth twice daily magnesium oxide (MAG-OX) 400 mg (241.3 mg magnesium) tablet Take 1 tablet by mouth two times a day. 60 tablet 02/02/2025 Active metFORMIN hydrochloride 1000 mg oral tablet (20 sources) Biguanide Start: 04-24-2021 End: 02-05-2025 take 1 tablet by mouth twice daily Metformin 1,000 mg tablet Active 1000 mg PO TWICE A DAY July 29, 2022 1:00am DM Complies with drug therapy Comment on above: Take 1 tablet by daniel th twice daily with meals. Take 1 tablet by daniel th two times a day with meals. multivitamin ORAL tablet (20 sources) take 1 tablet by mouth once daily multivitamin ORAL tablet Take 1 tablet by mouth once daily. Last dose 12/07/24 for OR 12/12/24 Active take 1 tablet by mouth once elyse y multivitamin ORAL tablet Take 1 tablet by mouth once daily. Active take 1 tablet by mouth once elyse y multivitamin ORAL tablet Take 1 tablet by mouth once daily. 0 Active Comment on above: Take 1 tablet by daniel th once daily. Multivitamin,Tx-Iro n-Minerals (3 sources) Start: 12-21-2014 take 1 tablet by mouth once daily Multivitamin,Tx-Iron- Minerals Active 1 TABLET PO DAILY December 20, 2014 11:00pm Multivitamin,Tx-Iro n-Minerals 1 TABLET tablet (2 sources) Start: 12-21-2014 take 1 tablet by mouth once daily Multivitamin,Tx-Iron- Minerals 1 TABLET tablet Active 1 {tbl} PO DAILY December 21, 2014 12:00am SUPPLEMENT Complies with drug therapy Start: 12-21-2014 take 1 tablet by daniel th once daily Multivitamin,Fn-Plyf-Djsejcma 1 TABLET t ablet Active 1 {tbl} PO DAILY December 21, 2014 12:00am perflutren lipid microsphere s 1.3 mL in NaCl (PF) 0.9% 10 mL injection (DEFINITY) (20 sources) Start: 10-02-2022 End: 01-01-2024 perflutren lipid microsphere s 1.3 mL in NaCl (PF) 0.9% 10 mL injection (DEFINITY) Start: 12-12-2020 End: 03-13-2022 perflutren lipid microsphere s 1.3 mL in NaCl (PF) 0.9% 10 mL injection (DEFINITY) polyethylene glycol 3350 718101 mg / potassium chloride 2970 mg / sodium bicarbonate 6740 mg / sodium chloride 5860 mg / sodium sulfate 93404 mg powder for oral solution (15 sources) Osmotic Laxative Start: 01-23-2025 End: 01-23-2025 peg 3350-Electrolytes (GOLYTELY) 236-22.74-6.74 -5.86 gram suspension Indications: Personal history of colon cancer Take 4,000 mL by mouth one time only for 1 dose. Refer to printed prep instructions from your provider. 4000 mL 01/23/2025 01/23/2025 Active Start: 01-23-2025 End: 01-23-2025 peg 3350-Electrolytes (GOLYT PEDRO PABLO) 236-22.74-6.74 -5.86 gram suspension Indications: Personal history of colon cancer Refer to printed patient instructions that will be mailed to you. 4000 mL 01/23/2025 01/23/2025 Discontinued (Duplicate Entry) Start: 12-16-2021 peg 3350-Elect rolytes (GOLYTELY) 236-22.74-6.74 -5.86 gram suspension Refer to printed patient instructions that will be mailed to you. 4000 mL 0 12/25/2021 Active Comment on above: Refer to printed pat ient instructions that will be mailed to you. pravastatin sodium 40 mg oral tablet (20 sources) HMG-CoA Reductase Inhibitor Start: End: take 1 tablet by mouth at bedtime Pravastatin 40 mg tablet Active 40 mg PO AT BEDTIME July 29, 2022 1:00am CHOLESTEROL Complies with drug therapy Comment on above: Take 1 tablet by daniel daily at bedtime. 125 ml sodium chloride 9 mg/ml prefilled syringe (20 sources) Start: End: sodium chloride 0.9 % (flush) 10 mL (BD POSIFLUSH) Start: 12-12-2020 End: 03-13-2022 sodium chloride 0.9 % (flush ) 10 mL (BD POSIFLUSH) triamcinolone acetonide 1 mg/ml topical cream (2 sources) Corticosteroid Start: 04-02-2023 End: 04-16-2023 triamcinolone acetonide (KENALOG) 0.1 % cream Apply 1 application to affected area twice daily for 14 days. 30 g 1 04/02/2023 04/16/2023 Active Comment on above: Apply 1 application to affected area twice daily for 14 days. vit C,G-St-qjxud-lutein-ze axan (PRESERVISION AREDS-2) 250-90-40-1 mg (20 sources) Start: 10-30-2021 vit C,J-Wb-dimzx-lutein-z eaxan (PRESERVISION AREDS-2) 250-90-40-1 mg Take 1 capsule by mouth twice daily with meals. 60 capsule 11 10/30/2021 Active Start: 10-30-2021 End: 10-30-2022 vit C,Z-Xb-npeka-lutein-zeax an (PRESERVISION AREDS-2) 250-90-40-1 mg Take 1 capsule by mouth twice daily with meals. 60 capsule 11 10/30/2021 10/30/2022 Active Comment on above: Take 1 capsule by mo [facility] twice daily with meals. Vit C,J-Hp-Kcckx-Lutei n-Zeaxan (Preservision Areds-2) 250-90-40-1 mg capsule (2 sources) Start: 11-28-2024 take 2 capsules by mouth twice daily Vit C,Z-Gy-Cogtx-Lutein -Zeaxan (Preservision Areds-2) 250-90-40-1 mg capsule Active 1 {tbl} PO TWICE A DAY November 28, 2024 12:00am Complies with drug therapy Start: 11-28-2024 take 2 capsules by m out twice daily Vit C,Y-Ik-Sangu-Lutein-Zeaxan (Preservision Areds-2) 250-90-40-1 mg capsule Active 1 {tbl} PO TWICE A DAY November 28, 2024 12:00am vitamin b12 2.5 mg oral tablet (5 sources) Vitamin B12 Start: 06-23-2018 take 1 tablet by mouth once daily Cyanocobalamin (Vitamin B-12) 2,500 MCG tablet Active 2500 ug PO DAILY June 23, 2018 12:00am SUPPLEMENT Complies with drug therapy Completed/Discontinued Medications Medication Drug Class(es) Dates Sig (Normalized) Sig (Original) acetaminophen 325 mg / HYDROcodone bitartrate 5 mg oral tablet (5 sources) Opioid Agonist Start: 01-03-2015 End: 03-31-2018 Hydrocodone-Acetami nophen 1 TABLET tablet Discontinued 1 - 2 {tbl} PO EVERY 4 HOURS NEEDED as needed for Mild-Mod Pain (1-5/10) 90 0 January 03, 2015 12:00am March 31, 2018 8:26am Start: 01-03-2015 End: 03-31-2018 take 1 tablet by mouth every four hours as needed Hydrocodone-Acetaminophen Discontinued 1 - 2 TABLET PO EVERY 4 HOURS NEEDED 90 January 02, 2015 11:00pm March 31, 2018 7:26am amiodarone hydrochloride 200 mg oral tablet (20 sources) Antiarrhythmic Start: 11-03-2024 End: 12-09-2024 take 1 tablet by mouth twice daily Amiodarone 200 mg tablet Discontinued 200 mg PO TWICE A DAY November 28, 2024 12:00am December 05, 2024 3:27pm Start: 11-03-2024 take 1 tablet by daniel th twice daily amiodarone (PACERONE) 200 mg tablet Take 1 tablet by mouth two times a day. Patient should start on November 03, 2024. 180 tablet 11/01/2024 12:35 PM EDT 11/03/2024 Active Start: 11-03-2024 take 1 tablet by daniel th twice daily amiodarone (PACERONE) 200 mg tablet Take 1 tablet by mouth two times a day. Patient should start on November 03, 2024. 180 tablet 11/03/2024 Active Start: 11-03-2024 take 1 tablet by danile th twice daily amiodarone (PACERONE) 200 mg tablet Take 1 tablet by mouth two times a day. Patient should start on November 03, 2024. 180 tablet 11/03/2024 Active Start: 10-31-2024 End: 11-07-2024 amiodarone (PACERONE) 200 mg tablet [The details of the medication are not available because there are pending changes by a home health clinician.] 12 tablet 10/31/2024 6:04 PM EDT 10/31/2024 11/07/2024 Discontinued Start: 10-31-2024 End: 11-02-2024 amiodarone (PACERONE) 200 mg tablet Take 2 tablets by mouth three times a day for 2 days. Then fill continuation order. 12 tablet 10/31/2024 6:04 PM EDT 10/31/2024 Active apixaban 5 mg oral tablet (20 sources) Factor Xa Inhibitor Start: 10-31-2024 End: 05-29-2025 take 1 tablet by mouth twice daily Apixaban 5 mg tablet Discontinued 5 mg PO TWICE A DAY November 28, 2024 12:00am March 20, 2025 9:30am aspirin 81 mg delayed release oral tablet (2 sources) Platelet Aggregation Inhibitor, Nonsteroidal Anti-inflammatory Drug Start: 11-18-2017 End: 09-22-2021 take 1 tablet by mouth once daily aspirin, enteric coated (ADULT LOW DOSE ASPIRIN) 81 mg EC tablet Take 1 tablet by mouth once daily. 11/18/2017 09/22/2021 Discontinued (Course of therapy completed) End: 10-31-2024 take 1 tablet by mouth once daily aspirin 81 mg cap Take 1 tablet by mouth once daily. 10/31/2024 Discontinued calcium chloride 0.0014 meq/ml / potassium chloride 0.004 meq/ml / sodium chloride 0.103 meq/ml / sodium lactate 0.028 meq/ml injectable solution (1 source) Start: 04-19-2025 End: 04-19-2025 take 30 mL intravenously every hour 30 mL/hr, INTRAVENOUS, CONTINUOUS, Starting on Thu04/19/25 at 0730, Until Thu04/19/25 at 0857, Preprocedure Cod Liver Oil Capsule (2 sources) Start: 07-29-2022 End: 10-23-2024 Cod Liver Oil Capsule Discontinued 4 NMA PO DAILY July 29, 2022 1:00am October 23, 2024 4:56am SUPPLEMENT Start: 07-29-2022 End: 10-23-2024 Cod Liver Oil Capsule Discon tinued 4 NMA PO DAILY July 29, 2022 1:00am October 23, 2024 4:56am glimepiride 4 mg oral tablet (20 sources) Sulfonylurea Start: 07-29-2022 End: 02-10-2025 take 1 tablet by mouth at dinner Glimepiride 4 mg tablet Discontinued 4 mg PO WITH DINNER July 29, 2022 1:00am February 10, 2025 1:07pm DM Start: 07-29-2022 take 8 mg by mouth at dinner G limepiride Active 8 MG PO WITH DINNER July 29, 2022 12:00am Start: 10-07-2021 End: 10-02-2022 take 2 tablets by mouth once daily before dinner glimepiride (AMARYL) 4 mg tablet Indications: Diabetic polyneuropathy associated with type 2 diabetes mellitus (HCC) Take 2 tablets by mouth daily before dinner. 180 tablet 3 08/15/2022 10/02/2022 Discontinued Start: 07-08-2021 End: 10-04-2021 take 2 tablets by mouth once daily before dinner glimepiride (AMARYL) 4 mg tablet Indications: Diabetic polyneuropathy associated with type 2 diabetes mellitus (HCC) Take 2 tablets by mouth daily before dinner. 180 tablet 3 07/08/2021 10/04/2021 Discontinued Comment on above: Take 2 tablets by mo ut daily before dinner. ibuprofen 200 mg oral tablet (5 sources) Nonsteroidal Anti-inflammatory Drug take 1 tablet by mouth every six hours as needed ibuprofen (MOTRIN) 200 mg tablet Take 200 mg by mouth every 6 hours as needed. 0 Active Comment on above: Take 200 mg by mouth every 6 hours as needed. ammonium lactate 120 mg/ml topical cream (8 sources) Start: 07-08-20 End: 03-31-20 22 ammonium lactate (LAC-HYDRIN) 12 % cream Apply to affected area as needed. 385 g 07/08/2021 03/31/2022 Discontinued (Discontinued by Patient) Comment on above: Apply to affected ar ea as needed. lactobacillus comb no.10 (PROBIOTIC) 20 billion cell cap (20 sources) Start: 11-03-19 End: 11-30-19 take 1 capsule by mouth once daily lactobacillus comb no.10 (PROBIOTIC) 20 billion cell cap Take 1 capsule by mouth once daily. Patient should start on November 02, 2024. 11/02/2024 11/29/2024 Discontinued (Discontinued by Patient) Start: 11-02-2024 take 1 capsule by mo uth once daily lactobacillus comb no.10 (PROBIOTIC) 20 billion cell cap Take 1 capsule by mouth once daily. Patient should start on November 02, 2024. 11/02/2024 Active lactobacillus co mb no.10 (PROBIOTIC) 20 billion cell cap Take by mouth. Active lactobacillus co mb no.10 (PROBIOTIC) 20 billion cell cap Take by mouth. 0 Active Comment on above: Take by mouth. Lactobacillus Combination No.4 (Probiotic) 3 billion cell Capsule (5 sources) Start: End: take 3 capsules by mouth once daily Lactobacillus Combination No.4 (Probiotic) 3 billion cell Capsule Discontinued 3000 NMA PO DAILY July 29, 2022 1:00am October 23, 2024 4:57am SUPPLEMENT administer with a meal Start: 07-29-2022 End: 10-23-2024 take 3 capsules by mouth once daily Lactobacillus Combination No.4 (Probiotic) 3 billion cell Capsule Discontinued 3000 NMA PO DAILY July 29, 2022 1:00am October 23, 2024 4:57am administer with a meal Start: 07-29-2022 take 3 capsules by m outh once daily Lactobacillus Combination No.4 (Probiotic) 3 billion cell Capsule Active 3000 MMU CELLS PO DAILY July 29, 2022 12:00am administer with a meal lactobacillus rhamnosus gg [id number] unt oral capsule (2 sources) Start: 11-28-2024 End: 02-10-2025 Lactobacillus Rhamnosus Gg (Probiotic Digestive Care) 20 billion cell capsule Discontinued NMA PO November 28, 2024 12:00am February 10, 2025 1:07pm lidocaine 0.05 mg/mg medicated patch (4 sources) Antiarrhythmic, Amide Local Anesthetic Start: 08-01-2022 End: 10-23-2024 Lidocaine 5 % Adhesive Patch,Medicated Discontinued 2 NMA TOPICAL DAILY 0 0 August 01, 2022 1:00am October 23, 2024 4:57am Please contact the information source for Protocol details. lisinopril 10 mg oral tablet (20 sources) Angiotensin Converting Enzyme Inhibitor Start: 12-21-2014 End: 11-28-2024 take 1 tablet by mouth once daily Lisinopril 10 MG tablet Discontinued 10 mg PO DAILY December 21, 2014 12:00am November 28, 2024 10:11am HEART Comment on above: Take 1 tablet by daniel th once daily. melatonin 3 mg extended release oral tablet (20 sources) Start: 10-23-2024 End: 02-10-2025 take 1 tablet by mouth at bedtime Melatonin (Meladox) 3 mg tablet extended release Discontinued 3 mg PO AT BEDTIME October 23, 2024 1:00am February 10, 2025 1:07pm Start: 10-05-2024 End: 03-17-2025 take 1 capsule by mouth once daily at bedtime melatonin 3 mg capsules Take 3 mg by mouth daily at bedtime. Last dose 12/07/24 for OR 12/12/24 10/05/2024 03/17/2025 Discontinued (Discontinued by Patient) Start: 10-05-2024 take 10 mg by mouth once daily at bedtime melatonin 3 mg capsules Take 10 mg by mouth daily at bedtime. 10/05/2024 Active meloxicam 15 mg oral tablet (5 sources) Nonsteroidal Anti-inflammatory Drug Start: 12-21-2014 End: 03-31-2018 take 1 tablet by mouth once daily Meloxicam 15 MG tablet Discontinued 15 mg PO DAILY December 21, 2014 12:00am March 31, 2018 8:27am 24 hr metoprolol succinate 25 mg extended release oral tablet (20 sources) beta-Adrenergic Traci Start: 11-01-2024 End: 04-04-2025 take 1 tablet by mouth once daily Metoprolol Succinate 25 mg tablet extended release 24 hr Discontinued 25 mg PO daily November 28, 2024 12:00am March 20, 2025 9:31am naproxen sodium 220 mg oral tablet (1 source) Nonsteroidal Anti-inflammatory Drug Start: 06-10-2017 End: 09-23-2021 take 1 tablet by mouth once daily naproxen sodium (ALEVE) 220 mg tablet Take 1 tablet by mouth once daily. 06/10/2017 09/23/2021 Discontinued (Discontinued by Patient) nystatin [id number] unt/ml topical cream (20 sources) Polyene Antifungal Start: 11-18-2024 End: 04-04-2025 nystatin (MYCOSTATIN) cream Indications: Dysuria Apply to affected area two times a day. 30 g 11/18/2024 04/04/2025 Discontinued nystatin 100 unt/mg / triamcinolone acetonide 0.001 mg/mg topical ointment (20 sources) Polyene Antifungal, Corticosteroid Start: 03-31-2022 End: 04-04-2024 nystatin-triamcin olone (MYCOLOG) ointment Indications: Perineal rash in female Apply sparingly to perineum twice daily for irritation/infect ion. 30 g 0 08/08/2022 Active Comment on above: Apply sparingly to p erineum twice daily for irritation/infection. omega-3 acid ethyl esters (long term) 1000 mg oral capsule (20 sources) Start: 11-28-2024 End: 02-10-2025 Sawyer-3 Acid Ethyl Esters 1 gram capsule Discontinued 1 NMA PO daily November 28, 2024 12:00am February 10, 2025 1:07pm End: 11-29-2024 omega-3 acid ethyl esters (L OVAZA) 1 gram capsule Take 2 g by mouth two times a day. 11/29/2024 Discontinued (Discontinued by Patient) oxyCODONE hydrochloride 5 mg oral tablet (4 sources) Opioid Agonist Start: 08-01-2022 End: 12-05-2024 take 1 tablet by mouth every four hours as needed for pain Oxycodone 5 mg Tablet Discontinued 5 mg PO EVERY 4 HOURS NEEDED as needed for Pain Score 6-10 10 3 0 August 01, 2022 December 05, 2024 11:21am Closed fracture of multiple ribs of right side, initial encounter Multiple fractures of ribs, right side, initial encounter for closed fracture rivaroxaban 10 mg oral tablet (5 sources) Factor Xa Inhibitor Start: 01-03-2015 End: 03-31-2018 take 1 tablet by mouth once daily Rivaroxaban 10 MG tablet Discontinued 10 mg PO DAILY@0600 27 0 January 03, 2015 12:00am March 31, 2018 8:27am Problems Active Problems Problem Classification Problem Date Documented Da te Episodic/Chronic Allergic reactions (2 sources) Atopic dermatitis; Translations: [Intrinsic (allergic) eczema] 04-02-2023 Chronic Aortic; peripheral; and visceral artery aneurysms (20 sources) Ectasia of thoracic aorta; Translations: [Thoracic aortic ectasia] Onset: 05-08-2020 09-25-2021 Chronic Bacterial infection; unspecified site (3 sources) Bacteremia; Translations: [Pseudomonas (aeruginosa) (mallei) (pseudomallei) as the cause of diseases classified elsewhere] Onset: 05-31-2025 Episodic Blindness and vision defects (9 sources) Visual hallucinations; Translations: [Visual hallucinations] Onset: 04-04-2025 03-01-2025 Episodic Calculus of urinary tract (20 sources) Kidney stone; Translations: [Calculus of kidney] Onset: 03-08-2015 03-08-2015 Episodic Cancer of colon (20 sources) Malignant tumor of colon; Translations: [Malignant neoplasm of colon, unspecified] Onset: 01-24-2019 01-24-2019 Chronic Cancer of colon (20 sources) History of malignant neoplasm of colon; Translations: [Personal history of other malignant neoplasm of large intestine] Onset: 09-09-2005 Resolved: 12-03-2016 11-01-2012 Episodic Cancer of uterus (20 sources) Malignant neoplasm of endometrium of corpus uteri ; Translations: [Malignant neoplasm of endometrium] Onset: 06-13-2011 Resolved: 06-03-2012 11-01-2012 Chronic Cardiac dysrhythmias (20 sources) Atrial fibrillation with rapid ventricular response; Translations: [Unspecified atrial fibrillation] Onset: 10-30-2024 10-30-2024 Chronic Chronic ulcer of skin (1 source) Pressure ulcer of buttock; Translations: [Pressure ulcer of unspecified buttock, unspecified stage] Chronic Diabetes mellitus with complications (20 sources) Neuropathy due to diabetes mellitus; Translations: [Type 2 diabetes mellitus with diabetic neuropathy, unspecified] Onset: 02-22-2014 02-22-2014 Chronic Diabetes mellitus without complication (20 sources) Diabetes mellitus; Translations: [Type 2 diabetes mellitus without complications] Onset: 03-16-2007 Resolved: 01-10-2016 04-23-2016 Chronic Comment on above: The patient has a hi story of diabetes, which increases her risk for cardiovascular disease and stroke, and contributes to her elevated [id number] score. Glycemic control is critical to reduce microvascular and macrovascular complications. No recent hemoglobin A1c or glucose data were provided, limiting assessment of current control. Disorders of lipid metabolism (20 sources) Hypertriglyceridemia; Translations: [Pure hyperglyceridemia] Onset: 07-10-2009 07-10-2009 Chronic Essential hypertension (20 sources) Hypertensive disorder; Translations: [Essential (primary) hypertension] Onset: 10-30-2024 10-30-2024 Chronic Genitourinary symptoms and ill-defined conditions (20 sources) Incontinence; Translations: [Mixed incontinence] Onset: 11-05-2009 11-05-2009 Chronic Genitourinary symptoms and ill-defined conditions (20 sources) Albuminuria ; Translations: [Proteinuria, unspecified] Onset: 03-08-2015 Resolved: 12-03-2016 Episodic Mood disorders (20 sources) Recurrent major depression in partial remission; Translations: [Major depressive disorder, recurrent, in partial remission] Onset: 12-31-2005 Resolved: 12-03-2016 12-03-2016 Chronic Nephritis; nephrosis; renal sclerosis (20 sources) Atrophy of left kidney; Translations: [Atrophy of kidney (terminal)] Onset: 10-23-2024 10-23-2024 Chronic Nonspecific chest pain (8 sources) Chest wall pain; Translations: [Other chest pain] Episodic Nutritional deficiencies (4 sources) Vitamin D deficiency; Translations: [Vitamin D deficiency, unspecified] Onset: 03-01-2025 04-02-2023 Chronic Other circulatory disease (5 sources) H/O: atrial fibrillation; Translations: [Personal history of other diseases of the circulatory system] 02-10-2025 Episodic Comment on above: The patient is a 70- year-old female with a history of hypertension and diabetes who experienced a brief episode of atrial fibrillation during hospitalization for urosepsis in November 2024. She spontaneously converted to sinus rhythm and has remained in sinus rhythm since, as confirmed by today s EKG (sinus rhythm at 73 bpm). She was initially discharged on amiodarone and apixaban; amiodarone has since been discontinued. The echocardiogram from October 2024 demonstrated preserved left ventricular systolic function (EF 60%) and no significant structural heart disease. The presence of inferior Q waves on today s EKG suggests prior myocardial injury, but there is no current evidence of ischemia or arrhythmia.Given her [id number] score of 4 (female, age >65, hypertension, diabetes), she is at elevated risk for thromboembolic events. Continued anticoagulation is indicated. The episode of atrial fibrillation was likely precipitated by acute illness (urosepsis) and has not recurred in the outpatient setting. The risk of recurrent atrial fibrillation remains, particularly in the context of her comorbidities. The decision to discontinue amiodarone was appropriate given her maintenance of sinus rhythm and absence of recurrent arrhythmia. Other circulatory disease (1 source) Personal history of other diseases of the circulatory system; Translations: [Personal history of other diseases of the circulatory system] Onset: 03-28-2025 Episodic Other connective tissue disease (5 sources) Neurological symptom; Translations: [Other symptoms and signs involving the nervous system] 03-01-2025 Episodic Other diseases of bladder and urethra (1 source) Neurogenic bladder; Translations: [Neuromuscular dysfunction of bladder, unspecified] 10-05-2023 Chronic Other diseases of kidney and ureters (1 source) Other hydronephrosis; Translations: [Other hydronephrosis] Onset: 06-20-2025 Episodic Other diseases of kidney and ureters (1 source) Unspecified hydronephrosis; Translations: [Hydroureteronephrosi s] Onset: 05-31-2025 Episodic Other female genital disorders (20 sources) Vesicovaginal fistula; Translations: [Vesicovaginal fistula] Onset: 08-12-2017 08-12-2017 Chronic Other female genital disorders (1 source) Vesicovaginal fistula; Translations: [Vesicovaginal fistula] Onset: 10-23-2024 Chronic Other fractures (4 sources) Closed fracture of multiple ribs; Translations: [Multiple fractures of ribs, right side, initial encounter for closed fracture] 07-29-2022 Episodic Other fractures (3 sources) Multiple fractures of ribs, right side, initial encounter for closed fracture; Translations: [Closed fracture of multiple ribs, unspecified] Episodic Other fractures (1 source) Closed fracture of multiple right ribs; Translations: [Multiple fractures of ribs, right side, initial encounter for closed fracture] 07-29-2022 Episodic Other gastrointestinal disorders (1 source) Alteration in bowel elimination; Translations: [Change in bowel habit] Episodic Other gastrointestinal disorders (5 sources) Abdominal bloating; Translations: [Abdominal distension (gaseous)] 06-23-2018 Episodic Other gastrointestinal disorders (2 sources) Altered bowel function; Translations: [Change in bowel habit] 10-07-2024 Episodic Other hereditary and degenerative nervous system conditions (1 source) Restless legs; Translations: [Restless legs syndrome] 03-17-2025 Chronic Other hereditary and degenerative nervous system conditions (2 sources) Restless legs syndrome; Translations: [Restless legs syndrome] Onset: 03-29-2025 Chronic Other inflammatory condition of skin (20 sources) Psoriasis; Translations: [Psoriasis, unspecified] Onset: 08-12-2017 08-12-2017 Chronic Other liver diseases (20 sources) Lesion of liver; Translations: [Liver disease, unspecified] Onset: 05-08-2020 05-08-2020 Chronic Other lower respiratory disease (1 source) Cough; Translations: [Cough] 07-31-2021 Episodic Other nervous system disorders (1 source) Abnormal circadian rhythm; Translations: [Circadian rhythm sleep disorder, unspecified type] 10-05-2023 Chronic Other nervous system disorders (1 source) Other acute postprocedural pain; Translations: [Post-op pain] Onset: 05-31-2025 Episodic Other nutritional; endocrine; and metabolic disorders (20 sources) Body mass index 40+ - severely obese; Translations: [Morbid (severe) obesity due to excess calories] Onset: 12-03-2016 12-03-2016 Chronic Other nutritional; endocrine; and metabolic disorders (20 sources) Obese class II; Translations: [Obesity, Class II, BMI 35-39.9] Onset: 10-24-2024 10-24-2024 Chronic Other nutritional; endocrine; and metabolic disorders (2 sources) Obesity; Translations: [Obesity, unspecified] 11-28-2024 Chronic Other nutritional; endocrine; and metabolic disorders (2 sources) Body mass index (BMI) 40.0-44.9, adult; Translations: [BMI 40.0-44.9, adult (HCC)] Onset: 03-17-2025 Chronic Other screening for suspected conditions (not mental disorders or infectious disease) (2 sources) MRI scan abnormal; Translations: [Abnormal findings on diagnostic imaging of other specified body structures] Onset: 04-04-2025 04-04-2025 Chronic Other skin disorders (1 source) Eruption; Translations: [Rash and other nonspecific skin eruption] Episodic Other skin disorders (1 source) Skin lesion; Translations: [Disorder of the skin and subcutaneous tissue, unspecified] 04-04-2024 Episodic Residual codes; unclassified (1 source) Sleep apnea; Translations: [Sleep apnea, unspecified] 03-17-2025 Chronic Residual codes; unclassified (1 source) Initial insomnia; Translations: [Other insomnia] 03-17-2025 Chronic Residual codes; unclassified (2 sources) Sleep apnea, unspecified; Translations: [Unspecified sleep apnea] Onset: 03-17-2025 Chronic Residual codes; unclassified (1 source) Obstructive sleep apnea (adult) (pediatric); Translations: [ROSE (obstructive sleep apnea)] Onset: 06-09-2025 Chronic Residual codes; unclassified (1 source) Other parasomnia; Translations: [Sleep-related hallucinations] Onset: 06-09-2025 Chronic Residual codes; unclassified (1 source) Other insomnia; Translations: [Sleep initiation disorder] Onset: 03-17-2025 Chronic Residual codes; unclassified (1 source) Postmenopausal state; Translations: [Asymptomatic menopausal state] 04-22-2023 Episodic Residual codes; unclassified (3 sources) Sleep disorder; Translations: [Sleep disorder, unspecified] 03-01-2025 Episodic Residual codes; unclassified (1 source) Sleep disorder, unspecified; Translations: [Sleep disorder] Onset: 04-04-2025 Episodic Septicemia (except in labor) (20 sources) Sepsis; Translations: [Sepsis, unspecified organism] Onset: 10-23-2024 10-23-2024 Episodic Thyroid disorders (20 sources) Hypothyroidism; Translations: [Hypothyroidism, unspecified] Onset: 12-31-2005 01-02-2016 Chronic Unclassified (1 source) Z86.79 - Personal history of other diseases of the circulatory system,I48.91 - Unspecified atrial fibrillation Unclassified (3 sources) Colonoscopy Photography Editor Onset: 04-05-2025 04-05-2025 Unclassified (2 sources) Stop taking weight-loss meds 1 week before Colonoscopy Onset: 04-13-2025 04-13-2025 Urinary tract infections (20 sources) Acute urinary tract infection; Translations: [Urinary tract infection, site not specified] Onset: 10-23-2024 10-23-2024 Episodic Past or Other Problems Problem Classification Problem Date Documented Da te Episodic/Chronic Abdominal pain (20 sources) Generalized abdominal pain; Translations: [Generalized abdominal pain] Onset: 04-13-2018 01-23-2021 Episodic Acute and unspecified renal failure (20 sources) Acute renal failure syndrome; Translations: [Acute kidney failure, unspecified] Onset: 10-23-2024 10-23-2024 Episodic Cancer of cervix (20 sources) Malignant tumor of cervix; Translations: [Malignant neoplasm of cervix uteri] Onset: 12-31-2005 Resolved: 12-03-2016 09-07-2007 Chronic Cancer of cervix (20 sources) History of malignant neoplasm of cervix; Translations: [Personal history of malignant neoplasm of cervix uteri] Onset: 11-01-2012 11-01-2012 Episodic Cancer of uterus (20 sources) History of malignant neoplasm of uterine body; Translations: [Personal history of malignant neoplasm of other parts of uterus] Onset: 08-01-2022 Episodic Conditions associated with dizziness or vertigo (5 sources) Lightheadedness; Translations: [Dizziness and giddiness] Onset: 10-05-2024 10-07-2024 Episodic Immunizations and screening for infectious disease (1 source) Encounter for immunization; Translations: [Encounter for immunization] Onset: 10-05-2024 Episodic Other and unspecified benign neoplasm (20 sources) Benign neoplasm of colon; Translations: [Benign neoplasm of colon, unspecified] Onset: 09-09-2005 Resolved: 12-03-2016 12-03-2016 Episodic Other and unspecified benign neoplasm (20 sources) History of polyp of colon; Translations: [Personal history of colonic polyps] Onset: 09-09-2005 Resolved: 12-03-2016 12-03-2016 Episodic Other connective tissue disease (1 source) Other symptoms and signs involving the nervous system; Translations: [Other symptoms and signs involving the nervous system] Onset: 03-06-2025 Episodic Other gastrointestinal disorders (20 sources) Abdominal distension, gaseous; Translations: [Abdominal distension (gaseous)] Onset: 04-13-2018 01-23-2021 Episodic Other gastrointestinal disorders (1 source) Change in bowel habit; Translations: [Change in bowel habits] Onset: 11-29-2024 Episodic Other non-traumatic joint disorders (20 sources) Pain in right hip joint; Translations: [Pain in right hip] Onset: 10-16-2022 Resolved: 05-19-2024 Episodic Other screening for suspected conditions (not mental disorders or infectious disease) (13 sources) Patient encounter status; Translations: [Encounter for screening for malignant neoplasm of colon] Onset: 01-30-2025 Episodic Pulmonary heart disease (20 sources) Dilatation of pulmonary artery; Translations: [Other diseases of pulmonary vessels] Onset: 05-08-2020 09-25-2021 Episodic Screening and history of mental health and substance abuse codes (1 source) Encounter for screening examination for other mental health and behavioral disorders; Translations: [Encounter for screening examination for other mental health and behavioral disorders] Onset: 03-01-2025 Episodic Spondylosis; intervertebral disc disorders; other back problems (20 sources) Cervical radiculopathy; Translations: [Radiculopathy, cervical region] Onset: 05-05-2018 05-05-2018 Episodic Unclassified (5 sources) h/o cervical 03-13-2022 Unclassified (5 sources) h/o colon cancer 03-13-2022 Unclassified (20 sources) ASA CLASS III Onset: 12-31-2005 Resolved: 12-03-2016 12-03-2016 Unclassified (20 sources) Type 2 diabetes mellitus; Translations: [Type 2 diabetes mellitus with proteinuria or albuminuria] Onset: 08-16-2014 Resolved: 04-23-2016 04-23-2016 Results Test Name Value Interpretation Reference Range Facility ANES POSTPROC EVALon 025 ANES POSTPROC EVAL [facility] ANES PRE-OPon 06-26-2025 ANES PRE-OP [facility] CNPNon 06-26-2025 CNPN [facility] HISTORY PHYSICALon HISTORY PHYSICAL [facility] NURSING PROGon 06-26-2025 NURSING PROG [facility] NURSING PROG [facility] NURSING PROG [facility] OPERATIVE NOon 06-26-2025 OPERATIVE NO [facility] PT panel Coag (PPP)on 2024 INR Coag (PPP) [Relative time] 1.1 {INR} Normal 0.9-1.3 Comment on above: Order Comment: Speci men Type: BLOOD SPECIMENOrdering Facility: [facility] Address: [address] [place] [address] Result Comment: Dennise min K Antagonist (VKA) Therapeutic Range: INR 2 to 3 (Target INR of 2.5)Note: For patients treated with VKA drugs, such as warfarin, the [place] [employer] 2012 Guideline recommends a therapeutic INR range of 2 to 3 (target INR of 2.5). This recommendation includes high-risk patients with antiphospholipid syndrome with previous arterial or venous thromboembolism, current-generation mechanical or bioprosthetic aortic heart valve replacement.Note: Patients with mechanical aortic valve replacement and additional risk factors for thromboembolic events (atrial fibrillation, previous thromboembolism, LV dysfunction, hypercoagulable conditions) or an older generation mechanical AVR (i.e., ball in-Cage) or any mechanical MVR should have a INR therapeutic range of 2.5 to 3.5 (target INR of 3).Tracy GH, et al. Chest 2012, 141:7S-47SNishimura RA, et al. [facility] 2017, 70: 252-289 Performed By: #### 3 4528-0 ####[facility] [id number] [place] [address] [place] PT Coag (PPP) [Time] 11.6 s Normal 9.7-13.0 [facility] Comment on above: Order Comment: Jack alberts Type: BLOOD SPECIMENOrdering Facility: [facility] Address: [address] [place] [address] Performed By: #### 3 4528-0 ####[facility] [id number] [place] [address] [place] CNCOon 06-23-2025 CNCO Letter Text [facility] CNPNon 06-22-2025 CNPN Normal Bacteria Ur Culton Bacteria identified Cx Nom (U) ORGANISM ID: 1 50,000-<100,000 CFU/ml Normal urogenital zhen Normal [facility] Comment on above: Performed By: #### 6 30-4 ####[facility] LABCLIA [id number] [place] [id number] [place] CNOVon 06-20-2025 CNOV Normal CNPSheree 06-13-2025 CELENAN Telephone (ABRILWST) ----- ALIYAH LEACH ([id number]) 1955 F Date Time Provider Department 06/13/25 SHITAL RAY During your visit today, we recorded the following information about you: Elsie Cottrell LPN 06/13/2025 10:01 AM Signed PAP orders, supporting signed OV notes and demographic info forwarded to [facility] for PAP set up. Elsie Cottrell LPN Allergies As of Date: 06/13/2025 Noted Allergy Reaction DETROL (TOLTERODINE TARTRATE) 08/08/2005 2 - Rash PENICILLINS 08/08/2005 2 - Rash Comments: Tolerating piperacillin/tazobactam at [facility] in October 2024. AD PharmD Date Reviewed: 06/09/2025 Reviewed by: Elsie Cotrtell LPN - Fully Assessed Reason for Visit: PAP orders [Other] Prescriptions as of 06/13/2025 - CPAP/BIPAP/OTHER APAP 5-20 cmH2O - ciprofloxacin HCl (CIPRO) 750 mg tablet Take 1 tablet by mouth two times a day for 10 days. Patient should start on June 06, 2025. - metFORMIN (GLUCOPHAGE) 1,000 mg tablet Take 1 tablet by mouth two times a day with meals. Patient should start on June 12, 2025. - levothyroxine (SYNTHROID) 112 mcg tablet Take 1 tablet by mouth once daily. - magnesium oxide (MAG-OX) 400 mg (241.3 mg magnesium) tablet Take 1 tablet by mouth two times a day. - pravastatin (PRAVACHOL) 40 mg tablet Take 1 tablet by mouth daily at bedtime. - FLUoxetine (PROZAC) 40 mg capsule Take 1 capsule by mouth once daily. - Incontinence Pad, Liner, Disp (POISE PADS) pads 1 pad five times a day. - losartan (COZAAR) 25 mg tablet Take 1 tablet by mouth two times a day. - dulaglutide (TRULICITY) 1.5 mg/0.5 mL pen injector Inject 1.5 mg subcutaneously one time a week. Inject once per week. Discard Pen After - vit C,B-Vn-scshw-lutein-zeaxa n (PRESERVISION AREDS-2) 250-90-40-1 mg Take 1 capsule by mouth twice daily with meals. - CYANOCOBALAMIN/COBAMAMIDE (B12 SUBLINGUAL) Dissolve 1 tablet under the tongue once daily. Last dose 05/26/25 - Cholecalciferol, Vitamin D3, 125 mcg (5,000 unit) cap Take 125 Units by mouth once daily. Last dose 05/26/25 - blood sugar diagnostic (ACCU-CHEK ROBIN) test strip Use as instructed - Lancets (ACCU-CHEK SOFTCLIX LANCETS) lancets Once daily. 250.40 - Blood-Glucose Meter (ACCU-CHEK ROBIN PLUS METER) misc 1 Each once daily. - multivitamin ORAL tablet Take 1 tablet by mouth once daily. Last dose 05/26/25 Problem List As Of Date 06/13/2025 Noted Resolved Benign neoplasm of colon [D12.6] 09/09/2005 12/03/2016 History of malignant neoplasm of large intestin*09/09/2005 12/03/2016 Personal history of colonic polyps [Z86.0100] 09/09/2005 12/03/2016 MALIG NEOPL CERVIX UTERI [180] 12/31/2005 09/07/2007 Depressive disorder, not elsewhere classified [*12/31/2005 12/03/2016 Hypothyroidism [E03.9] 12/31/2005 ASA CLASS III [1003] 12/31/2005 12/03/2016 Type 2 diabetes mellitus without complication (*03/16/2007 01/10/2016 Malignant neoplasm of cervix uteri, unspecified*09/07/2007 12/03/2016 Hypertriglyceridemia [E78.1] 07/10/2009 Mixed Incontinence Urge and Stress (Male)(Femal*11/05/2009 Endometrial cancer [C54.1] 06/13/2011 12/25/2011 S/P hysterectomy with oophorectomy [Z90.710, Z9*06/22/2011 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] 07/14/2011 06/03/2012 Hyperlipidemia [E78.5] 01/21/2012 Diabetes mellitus (HCC) [E11.9] 02/20/2012 Endometrial cancer [C54.1] 11/01/2012 History of cervical cancer [Z85.41] 11/01/2012 History of colon cancer [Z85.038] 11/01/2012 Diabetic neuropathy (HCC) [E11.40] 02/22/2014 Type 2 diabetes mellitus with proteinuria or al*08/16/2014 04/23/2016 Urinary urgency [R39.15] 03/08/2015 12/03/2016 Frequency of micturition [R35.0] 03/08/2015 12/03/2016 Mixed incontinence [N39.46] 03/08/2015 Kidney stone on left side [N20.0] 03/08/2015 Recurrent major depression in partial remission*12/03/2016 Obesity, Class III, BMI >= 40 (morbid obesity) *12/03/2016 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] 08/12/2017 Psoriasis [L40.9] 08/12/2017 Radiculopathy, cervical region [M54.12] 05/05/2018 Colon cancer (HCC) [C18.9] Ectatic thoracic aorta (HCC) [I77.810] 05/08/2020 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 Lesion of liver less than 1 cm in diameter with*05/08/2020 Generalized abdominal pain [R10.84] 04/13/2018 Abdominal distension (gaseous) [R14.0] 04/13/2018 Pain in joint of right hip [M25.551] 10/16/2022 05/19/2024 Personal history of other malignant neoplasm of*08/01/2022 Personal history of malignant neoplasm of other*08/01/2022 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 She endorses additional symptoms concerning for underlying sleep disordered breathing. The differential diagnosis for visual hallucinations in the context of sleep disturbance were discussed at length. An additional discussion was held around the treatment options for obstructive sleep apnea. Patient verbalized understanding and expressed agreement to proceeding with in lab polysomnography with split-night protocol as well as parasomnia montage. In the context of the patient's additional concerns for symptoms of restless leg syndrome, iron studies were ordered for further evaluation. The patient is recommended to continue to follow-up with her other providers for pharmacotherapy optimization and care coordination. The patient is additionally encouraged to maintain adequate sleep hygiene in order to allow for adequate sleep opportunity as well as to monitor the frequency and timing of her visual hallucinations. The opportunity ask additional questions was provided to the patient. She voiced that expressed agreement to follow-up after sleep study for review results and refined on the plan of care. Kevon Gonzalez MD Sleep Medicine Fellow Staffed with: Dr. Rodriguez Recording using [employer]ora software for draft documentation of the visit was discussed with the patient/authorized procurement representative; all questions welcomed and answered. Patient/authorized procurement representative agreed to proceed This note was partially generated using [employer] voice recognition system, and there may be some incorrect words, spellings, and punctuation that were not noted in checking the note before saving. Attending Note I evaluated the patient and personally participated in the atkinson components. I agree with the fellow's findings and plan as documented. I have discussed the case with management of patient's care with the fellow and patient. Signature: Constance Rodriguez MD CURRENT VISIT: 06/09/2025 The patient is a 70-year-old female with new dx of moderate ROSE here to discuss PSG results. She presented initally due to sleep related visual hallucinations. PMH includes AFib, recurrent kidney stones, recent sepsis due to obstructing ureteral stone, diabetes, hypertension, hyperlipidemia, MDD, hypothyroidism, obesity, hx colon cancer, hx uterine cancer, diabetic neuropathy The patient reports sleep-related hallucinations that began approximately 1.5 years ago. She describes waking from deep sleep to see figures standing over her bed, including a recent vision of a man in a towel and a prior episode of an old man in a yellow satin bunny suit with fuzzy ears. These episodes previously caused her to awaken 6-8 times nightly, but have become less frequent and bothersome over time. She denies sleep paralysis and typically rolls over and returns to sleep after these episodes, though she has occasionally sat upright in bed. She underwent a sleep study that showed a sleep efficiency of 75%, sleep onset latency of 23 minutes, and no REM sleep. She slept supine throughout the study, which matches her usual sleep position. The study revealed an AHI of 19, consistent with moderate ROSE. She spent only 1 minute with oxygen saturation below 90%. She reports that her brother uses CPAP for sleep apnea. She has a history of AFib diagnosed 6 months ago. She also reports recurrent nephrolithiasis, with a 9 mm right renal stone 6 months ago and multiple left renal stones more recently. She is scheduled for stone removal on Jun 26. 05/22/25 PSG: AHI 19.5, no REM sleep, spent 0.5 min with O2<=88% Scoring for REM sleep without atonia was requested by the referring provider. No REM sleep was captured during the recording. Labs checked because of RLS Latest Reference Range AND Units 03/29/25 12:37 Asaf (more content not included)... Normal [facility] Cardiology Visit Reporton Cardiology Visit Report [facility] [address] [place] [address] OFFICE VISIT Date of Service: 06/07/25 MR#: [id number] Acct: [id number] Name: ALIYAH LEACH Rep #: [id number] : 1955 Provider: Dr. Wily Wen MD Age/Sex: 70/F Location: [facility] [place] Status: Signed HPI HPI History of Present Illness Details: This lady with history of atrial fibrillation in the setting of renal colic and urosepsis is for follow-up visit. Since her last visit with us, she was seen by electrophysiology. They recommended doing a event monitoring for her. It did not show any recurrence of her atrial fibrillation. Subsequently her apixaban was discontinued. The plan by electrophysiology is implantation of a loop recorder for her and following that for the next 3 years. Per patient, she was admitted to the hospital last week with renal colic again. Per her, she was told in the hospital that she had an episode of atrial fibrillation again. She has had a ureteral stent placed. According to her, the plan is for her to have lithotripsy for her renal stones. 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 Accompanied by: Self Is patient in pain?: No Allergies Penicillins (PCN) Allergy (Verified 06/07/25 13:31) Swelling tolterodine tartrate (From Detrol) Allergy (Verified 06/07/25 13:31) Swelling Medications ???Medication ???Instructions ???Recorded ???Confirmed ???Type multivitamin,uy-dvdp-lisn rals 27 1 tab PO DAILY SUPPLEMENT 12/21/14 06/07/25 History mg-0.4 mg tablet cyanocobalamin (vitamin B-12) 2,500 mcg PO DAILY SUPPLEMENT 05/2606/07/25 History 2,500 mcg tablet fluoxetine 40 mg capsule 40 mg PO DAILY DEPRESSION 07/29/22 06/07/25 History levothyroxine 112 mcg tablet 112 mcg PO DAILY THYROID 07/29/22 06/07/25 History metformin 1,000 mg tablet 1,000 mg PO BID DM 07/29/22 History pravastatin 40 mg tablet 40 mg PO QHS CHOLESTEROL 07/29/22 06/07/25 History cholecalciferol (vitamin D3) 125 125 mcg PO QDAY 11/28/24 06/07/25 History mcg (5,000 unit) capsule dulaglutide 1.5 mg/0.5 mL 1.5 mg subcut QWEEK 11/28/2406/07 History subcutaneous pen injector (Trulicity) losartan 25 mg tablet 25 mg PO BID 11/28/24 06/07/25 His tory magnesium oxide 420 mg tablet 420 mg PO BID 11/28/24 06/07/25 Hi story vit C 250 mg-vit E 90 mg-zinc 40 1 tab PO BID 11/28/24 06/07/25 His tory mg-copper 1 ls-lfgnyn-sbpwyt capsule (PreserVision AREDS-2) cefdinir 300 mg capsule 300 mg PO BID 06/07/25 06/07/25 Hi story Ejection fraction %: 64 Have you fallen in the past year?: No PFSH Medical History Lightheadedness Psoriasis Obesity Incontinence of urine Hives Hernia of abdominal cavity Hernia Gall stones Endometrial cancer Diarrhea Benign neoplasm of colon Hypothyroidism Diabetes mellitus CHAPITO (acute kidney injury) UTI (urinary tract infection) Atrial fibrillation with RVR Lactic acidosis Severe sepsis Right ureteral stone H/O cancer of uterus h/o cervical h/o colon cancer Depression hypercholesterolemia Diabetes HTN (hypertension) Surgical History History of cataract removal with insertion of prosthetic lens S/P colonoscopy ( 06/23/18) H/O colonoscopy S/P appendectomy History of laparoscopic cholecystectomy History of bilateral knee replacement S/P hysterectomy S/P colectomy Family History Father Colon cancer Rectal cancer Mother Diabetes CVA (cerebral vascular accident) Renal failure Sister Hypertension Diabetes Cancer lymphoma, leukemia Brother Diabetes Aunt Cancer breast Social History household members: spouse and family Smoking Status: Never smoker alcohol intake: current alcohol intake frequency: holidays/special occasions only substance use type: does not use ROS Const Const: Negative for fatigue or weakness Eyes Eyes: Negative for change in vision ENT ENT: Positive for dizziness and balance problems Cardio Chest Pain: No Palpitations: Yes feels like its: fast and irregular Edema: None Resp Respiratory: Negative for SOB with activity, SOB at rest or SOB orthopnea SOB lying down GI GI: Negative nausea or heartburn Musc Musc: Positive for balance problems Neuro Neuro: Positive for dizzine (more content not included)... Normal [facility] CNPNon 06-06-2025 CNPN [facility] CASE MANAGEMon 06-05-2025 CASE MANAGEM [facility] CASE MANAGEM [facility] CBC W Auto Differential pane l (Bld)on 06-05-2025 Basophils (Bld) [#/Vol] 0.06 10*3/uL Normal <0.11 Comment on above: Order Comment: Speci men Type: BLOOD SPECIMENOrdering Facility: [facility] Address: [address] [place] [address] Performed By: #### 5 7021-8 ####[facility]ATORYCLIA [id number] [address] [place] Basophils/100 WBC (Bld) 0.5 % Normal Comment on above: Order Comment: Speci men Type: BLOOD SPECIMENOrdering Facility: [facility] Address: [address] [place] [address] Performed By: #### 5 7021-8 ####[facility]ATORYCLIA [id number] [place] [address] [place] Differential cell count method Nom (Bld) Auto Normal Comment on above: Order Comment: Speci men Type: BLOOD SPECIMENOrdering Facility: [facility] Address: [address] [place] [address] Performed By: #### 5 7021-8 ####[facility]ATORYCLIA [id number] [place] [address] [place] Eosinophils (Bld) [#/Vol] 0.30 10*3/uL Normal <0.46 Comment on above: Order Comment: Speci men Type: BLOOD SPECIMENOrdering Facility: [facility] Address: [address] [place] [address] Performed By: #### 5 7021-8 ####[facility]ATORYCLIA [id number] [address] [place] Eosinophils/100 WBC (Bld) 2.6 % Normal Comment on above: Order Comment: Speci men Type: BLOOD SPECIMENOrdering Facility: [facility] Address: [address] [place] [address] Performed By: #### 5 7021-8 ####[facility]ATORYCLIA [id number] [address] [place] Erythrocyte distribution width (RBC) [Ratio] 14.6 % Normal 11.5-15.0 Comment on above: Order Comment: Speci men Type: BLOOD SPECIMENOrdering Facility: [facility] Address: [address] [place] [address] Performed By: #### 5 7021-8 ####[facility]ATORYCLIA [id number] [place] [address] [place] Hematocrit (Bld) [Volume fraction] 35.9 % Low 36.0-46.0 Comment on above: Order Comment: Speci men Type: BLOOD SPECIMENOrdering Facility: [facility] Address: [address] [place] [address] Performed By: #### 5 7021-8 ####[facility]ATORYCLIA [id number] [place] [address] [place] Hemoglobin (Bld) [Mass/Vol] 11.5 g/dL Normal 11.5-15.5 Comment on above: Order Comment: Speci men Type: BLOOD SPECIMENOrdering Facility: [facility] Address: [address] [place] [address] Performed By: #### 5 7021-8 ####[facility]ATORYCLIA [id number] [place] [address] [place] Immature granulocytes (Bld) [#/Vol] 0.32 10*3/uL High <0.10 Comment on above: Order Comment: Speci men Type: BLOOD SPECIMENOrdering Facility: [facility] Address: [address] [place] [address] Performed By: #### 5 7021-8 ####[facility]ATORYCLIA [id number] [place] [address] [place] Immature granulocytes/100 WBC (Bld) 2.8 % Normal Comment on above: Order Comment: Speci men Type: BLOOD SPECIMENOrdering Facility: [facility] Address: [address] [place] [address] Performed By: #### 5 7021-8 ####[facility]ATORYCLIA [id number] [place] [address] [place] Lymphocytes (Bld) [#/Vol] 1.20 10*3/uL Normal 1.00-4.00 Comment on above: Order Comment: Speci men Type: BLOOD SPECIMENOrdering Facility: [facility] Address: [address] [place] [address] Performed By: #### 5 7021-8 ####[facility]ATORYCLIA [id number] [address] [place] Lymphocytes/100 WBC (Bld) 10.5 % Normal Comment on above: Order Comment: Speci men Type: BLOOD SPECIMENOrdering Facility: [facility] Address: [address] [place] [address] Performed By: #### 5 7021-8 ####[facility]ATORYCLIA [id number] [address] [place] MCH (RBC) [Entitic mass] 27.7 pg Normal 26.0-34.0 Comment on above: Order Comment: Speci men Type: BLOOD SPECIMENOrdering Facility: [facility] Address: [address] [place] [address] Performed By: #### 5 7021-8 ####[facility]ATORYCLIA [id number] [address] MCHC (RBC) [Mass/Vol] 32.0 g/dL Normal 30.5-36.0 [facility] Comment on above: Order Comment: Speci men Type: BLOOD SPECIMENOrdering Facility: [facility] Address: [address] [place] [address] Performed By: #### 5 7021-8 ####[facility]ATORYCLIA [id number] [address] [place] MCV (RBC) [Entitic vol] 86.5 fL Normal 80.0-100.0 Comment on above: Order Comment: Speci men Type: BLOOD SPECIMENOrdering Facility: [facility] Address: [address] [place] [address] Performed By: #### 5 7021-8 ####[facility]ORATORYCLIA [id number] [place] [address] [place] Monocytes (Bld) [#/Vol] 0.99 10*3/uL High <0.87 Comment on above: Order Comment: Speci men Type: BLOOD SPECIMENOrdering Facility: [facility] Address: [address] [place] [address] Performed By: #### 5 7021-8 ####[facility]ATORYCLIA [id number] [place] [address] [place] Monocytes/100 WBC (Bld) 8.7 % Normal Comment on above: Order Comment: Speci men Type: BLOOD SPECIMENOrdering Facility: [facility] Address: [address] [place] [address] Performed By: #### 5 7021-8 ####[facility]ATORYCLIA [id number] [place] [address] [place] Neutrophils (Bld) [#/Vol] 8.57 10*3/uL High 1.45-7.50 Comment on above: Order Comment: Speci men Type: BLOOD SPECIMENOrdering Facility: [facility] Address: [address] [place] [address] Performed By: #### 5 7021-8 ####[facility]ATORYCLIA [id number] [place] [address] [place] Neutrophils/100 WBC (Bld) 74.9 % Normal Comment on above: Order Comment: Speci men Type: BLOOD SPECIMENOrdering Facility: [facility] Address: [address] [place] [address] Performed By: #### 5 7021-8 ####[facility]ATORYCLIA [id number] [place] [address] [place] Nucleated RBC (Bld) [#/Vol] 10*3/uL Normal <0.01 Comment on above: Order Comment: Speci men Type: BLOOD SPECIMENOrdering Facility: [facility] Address: [address] [place] [address] Performed By: #### 5 7021-8 ####[facility]ATORYCLIA [id number] [place] [id number] [place] Nucleated RBC/100 WBC (Bld) [Ratio] 0.0 /100 WBC Normal Comment on above: Order Comment: Speci men Type: BLOOD SPECIMENOrdering Facility: [facility] Address: [address] [place] [address] Performed By: #### 5 7021-8 ####[facility]ATORYCLIA [id number] [place] [id number] [place] Platelet mean volume (Bld) [Entitic vol] 9.5 fL Normal 9.0-12.7 Comment on above: Order Comment: Speci men Type: BLOOD SPECIMENOrdering Facility: [facility] Address: [address] [place] [address] Performed By: #### 5 7021-8 ####[facility]ATORYCLIA [id number] [place] [id number] [place] Platelets (Bld) [#/Vol] 336 10*3/uL Normal 150-400 Comment on above: Order Comment: Speci men Type: BLOOD SPECIMENOrdering Facility: [facility] Address: [address] [place] [address] Performed By: #### 5 7021-8 ####[facility]ATORYCLIA [id number] [place] [id number] [place] RBC (Bld) [#/Vol] 4.15 10*6/uL Normal 3.90-5.20 Comment on above: Order Comment: Speci men Type: BLOOD SPECIMENOrdering Facility: [facility] Address: [address] [place] [address] Performed By: #### 5 7021-8 ####[facility]ATORYCLIA [id number] [place] [id number] [place] WBC (Bld) [#/Vol] 11.44 10*3/uL High 3.70-11.00 [facility] Comment on above: Order Comment: Speci men Type: BLOOD SPECIMENOrdering Facility: [facility] Address: [address] [place] [address] Performed By: #### 5 7021-8 ####[facility]ATORYCLIA [id number] [place] [id number] [place] CNDSon 06-05-2025 CNDS Normal CONSULT PROGon 06-05-2025 CONSULT PROG Normal Comprehensive metabolic 2000 panelon 06-05-2025 Albumin [Mass/Vol] 2.7 g/dL Low 3.2-5.0 Comment on above: Order Comment: Speci men Type: BLOOD SPECIMENOrdering Facility: [facility] Address: [address] [place] [address] Performed By: #### 2 4323-8, 46110-1 ####[facility]ATORYCLIA [id number] [place] [address] [place] ALP [Catalytic activity/Vol] 78 U/L Normal 45-117 Comment on above: Order Comment: Speci men Type: BLOOD SPECIMENOrdering Facility: [facility] Address: [address] [place] [address] Performed By: #### 2 4323-8, ####[facility]ATORYCLIA [id number] [place] [id number] [place] ALT [Catalytic activity/Vol] 21 U/L Normal 13-61 Comment on above: Order Comment: Speci men Type: BLOOD SPECIMENOrdering Facility: [facility] Address: [address] [place] [address] Result Comment: Resu lts may be falsely depressed after the administration of Sulfasalazine and/or Sulfapyridine. Performed By: #### 2 4323-8, ####[facility]ATORYCLIA [id number] [place] [id number] [place] Anion gap [Moles/Vol] 10 mmol/L Normal 5-16 [facility] Comment on above: Order Comment: Speci men Type: BLOOD SPECIMENOrdering Facility: [facility] Address: [address] [place] [address] Performed By: #### 2 4323-8, ####[facility]ATORYCLIA [id number] [place] [id number] [place] AST [Catalytic activity/Vol] 15 U/L Normal 8-34 Comment on above: Order Comment: Speci men Type: BLOOD SPECIMENOrdering Facility: [facility] Address: [address] [place], [place] [id number] Result Comment: Resu lts may be falsely depressed after the administration of Sulfasalazine and/or Sulfapyridine. Performed By: #### 2 4323-8, ####[facility]ATORYCLIA [id number] [place] [address] [place] Bilirubin [Mass/Vol] 0.4 mg/dL Normal 0.2-1.0 [facility] Comment on above: Order Comment: Speci men Type: BLOOD SPECIMENOrdering Facility: [facility] Address: [address] [place] [address] Performed By: #### 2 4323-8, ####[facility]ATORYCLIA [id number] [place] [id number] [place] Calcium [Mass/Vol] 9.1 mg/dL Normal 8.5-10.5 Comment on above: Order Comment: Speci men Type: BLOOD SPECIMENOrdering Facility: [facility] Address: [address] [place] [address] Performed By: #### 2 4323-8, ####[facility]ATORYCLIA [id number] [place] [id number] [place] Chloride [Moles/Vol] 101 mmol/L Normal 98-107 [facility] Comment on above: Order Comment: Speci men Type: BLOOD SPECIMENOrdering Facility: [facility] Address: [address] [place] [address] Performed By: #### 2 4323-8, ####[facility]ATORYCLIA [id number] [place] [id number] [place] CO2 [Moles/Vol] 27 mmol/L Normal 21-32 Comment on above: Order Comment: Speci men Type: BLOOD SPECIMENOrdering Facility: [facility] Address: [address] [place] [address] Performed By: #### 2 4323-8, ####[facility]ATORYCLIA [id number] [place] [id number] [place] Creatinine [Mass/Vol] 0.74 mg/dL Normal 0.51-0.95 [facility] Comment on above: Order Comment: Speci men Type: BLOOD SPECIMENOrdering Facility: [facility] Address: [address] [place] [address] Result Comment: Jose ents receiving either N-Acetylcysteine (NAC) or Metamizole prior to venipuncture, may have falsely depressed results. Performed By: #### 2 43238, ####[facility]ATORYCLIA [id number] [address] [place] eGFRcr SerPlBld CKD-EPI 2020 86 mL/min/1.73m??? Normal >=60 Comment on above: Order Comment: Speci men Type: BLOOD SPECIMENOrdering Facility: [facility] Address: [address] [place] [address] Result Comment: Alecia mated Glomerular Filtration Rate (eGFR) is calculated using the 2020 CKD-EPI creatinine equation. This equation utilizes serum creatinine, sex, and age as parameters. The creatinine assay has traceable calibration to isotope dilution-mass spectrometry. Refer to KDIGO guidelines for clinical interpretation. In patients with unstable renal function, e.g. those with acute kidney injury, the eGFR may not accurately reflect actual GFR. Performed By: #### 2 4323-8, ####[facility]ATORYCLIA [id number] [place] [id number] [place] Glucose [Mass/Vol] 152 mg/dL High 70-100 Comment on above: Order Comment: Jack alberts Type: BLOOD SPECIMENOrdering Facility: [facility] Address: [address] [place], [place] [address] Result Comment: The [place] Diabetes Association (ADA) provides guidance for cutoff values for fasting glucose and random glucose. The ADA defines fasting as no caloric intake for at least 8 hours. Fasting plasma glucose results between 100 to 125 mg/dL indicate increased risk for diabetes (prediabetes).Fasting plasma glucose results greater than or equal to 126 mg/dL meet the criteria for diagnosis of diabetes. In the absence of unequivocal hyperglycemia, results should be confirmed by repeat testing. In a patient with classic symptoms of hyperglycemia or hyperglycemic crisis, random plasma glucose results greater than or equal to 200 mg/dL meet the criteria for diagnosis of diabetes.Reference: Standards of Medical Care in Diabetes 2016, [place] [employer]. Diabetes Care. 2016.39(Suppl 1).Results may be falsely elevated after the administration of Sulfapyridine.Results may be falsely depressed after the administration of Sulfasalazine. Performed By: #### 2 4323-8, 19777-7 ####[facility]ATORYCLIA [id number] [place] [address] [place] Potassium [Moles/Vol] 3.9 mmol/L Normal 3.5-5.1 [facility] Comment on above: Order Comment: Jack alberts Type: BLOOD SPECIMENOrdering Facility: [facility] Address: [address] [place] [address] Performed By: #### 2 4323-8, ####[facility]ATORYCLIA [id number] [place] [id number] [place] Protein [Mass/Vol] 6.5 g/dL Normal 6.0-8.5 Comment on above: Order Comment: Jack alberts Type: BLOOD SPECIMENOrdering Facility: [facility] Address: [address] [place] [address] Performed By: #### 2 4323-8, ####[facility]ORYCLIA [id number] [place] [id number] [place] Sodium [Moles/Vol] 138 mmol/L Normal 136-145 Comment on above: Order Comment: Jack alberts Type: BLOOD SPECIMENOrdering Facility: [facility] Address: [address] [place] [place] [id number] Performed By: #### 2 4323-8, ####[facility]ATORYCLIA [id number] [place] [id number] [place] Urea nitrogen [Mass/Vol] 14 mg/dL Normal 7-26 Comment on above: Order Comment: Jack alberts Type: BLOOD SPECIMENOrdering Facility: [facility] Address: [address] [place] [address] [place] [address] Performed By: #### 2 4323-8, ####[facility]ATORYCLIA [id number] [place] [address] [place] Magnesium SerPl-mCncon 06-05 Magnesium [Mass/Vol] 1.6 mg/dL Normal 1.6-2.6 [facility] Comment on above: Order Comment: Jack alberts Type: BLOOD SPECIMENOrdering Facility: [facility] Address: [address] [place] [address] Performed By: #### 2 4323-8, ####[facility]ATORYCLIA [id number] [address] [place] Procalcitonin SerPl-mCncon 1 Procalcitonin [Mass/Vol] 1.34 ng/mL High 0.00-0.50 Comment on above: Order Comment: Jack alberts Type: BLOOD SPECIMENOrdering Facility: [facility] Address: [address] [place], [place] [address] [address] Result Comment: PCT Concentration InterpretationPCT <=0.1 ng/mL:Normal range for healthy adultsPCT >0.1 ng/mL and <0.5 ng/mL:Systemic infection (sepsis) is possible and may require antibiotic treatment, but other conditions are known to elevate PCT as well.PCT >0.5 ng/mL:Should be considered at risk for developing severe sepsis or septic shock.PCT >2.0 ng/mL:Important systemic inflammatory response. Almost exclusively indicates episode of severe bacterial sepsis or septic shock. Performed By: #### 3 3959-8 ####[facility]ATORYCLIA [id number] [address] STATES OF [facility] CBC W Auto Differential pane l (Bld)on 06-04-2025 Basophils (Bld) [#/Vol] 0.05 10*3/uL Normal <0.11 Comment on above: Order Comment: Speci men Type: BLOOD SPECIMENOrdering Facility: [facility] Address: [address] [place] [address] Performed By: #### 5 7021-8 ####[facility]ATORYCLIA [id number] [address] [place] Basophils/100 WBC (Bld) 0.5 % Normal Comment on above: Order Comment: Speci men Type: BLOOD SPECIMENOrdering Facility: [facility] Address: [address] [place] [address] Performed By: #### 5 7021-8 ####[facility]ATORYCLIA [id number] [address] Differential cell count method Nom (Bld) Auto Normal Comment on above: Order Comment: Speci men Type: BLOOD SPECIMENOrdering Facility: [facility] Address: [address] [place] [address] Performed By: #### 5 7021-8 ####[facility]ATORYCLIA [id number] [address] [place] Eosinophils (Bld) [#/Vol] 0.33 10*3/uL Normal <0.46 Comment on above: Order Comment: Speci men Type: BLOOD SPECIMENOrdering Facility: [facility] Address: [address] [place] [address] Performed By: #### 5 7021-8 ####[facility]ATORYCLIA [id number] [address] [place] Eosinophils/100 WBC (Bld) 3.2 % Normal Comment on above: Order Comment: Speci men Type: BLOOD SPECIMENOrdering Facility: [facility] Address: [address] [place] [address] Performed By: #### 5 7021-8 ####[facility]ATORYCLIA [id number] [place] [address] [place] Erythrocyte distribution width (RBC) [Ratio] 14.6 % Normal 11.5-15.0 Comment on above: Order Comment: Speci men Type: BLOOD SPECIMENOrdering Facility: [facility] Address: [address] [place] [address] Performed By: #### 5 7021-8 ####[facility]ATORYCLIA [id number] [address] [place] Hematocrit (Bld) [Volume fraction] 32.9 % Low 36.0-46.0 Comment on above: Order Comment: Speci men Type: BLOOD SPECIMENOrdering Facility: [facility] Address: [address] [place] [address] Performed By: #### 5 7021-8 ####[facility]ATORYCLIA [id number] [address] [place] Hemoglobin (Bld) [Mass/Vol] 10.7 g/dL Low 11.5-15.5 Comment on above: Order Comment: Speci men Type: BLOOD SPECIMENOrdering Facility: [facility] Address: [address] [place] [address] Performed By: #### 5 7021-8 ####[facility]ATORYCLIA [id number] [place] [address] [place] Immature granulocytes (Bld) [#/Vol] 0.18 10*3/uL High <0.10 Comment on above: Order Comment: Speci men Type: BLOOD SPECIMENOrdering Facility: [facility] Address: [address] [place] [address] Performed By: #### 5 7021-8 ####[facility]ATORYCLIA [id number] [place] [address] [place] Immature granulocytes/100 WBC (Bld) 1.8 % Normal Comment on above: Order Comment: Speci men Type: BLOOD SPECIMENOrdering Facility: [facility] Address: [address] [place] [address] Performed By: #### 5 7021-8 ####[facility]ATORYCLIA [id number] [place] [address] [place] Lymphocytes (Bld) [#/Vol] 0.99 10*3/uL Low 1.00-4.00 Comment on above: Order Comment: Speci men Type: BLOOD SPECIMENOrdering Facility: [facility] Address: [address] [place] [address] Performed By: #### 5 7021-8 ####[facility]ATORYCLIA [id number] [address] Lymphocytes/100 WBC (Bld) 9.6 % Normal Comment on above: Order Comment: Speci men Type: BLOOD SPECIMENOrdering Facility: [facility] Address: [address] [place] [address] Performed By: #### 5 7021-8 ####[facility]ATORYCLIA [id number] [place] [address] [place] MCH (RBC) [Entitic mass] 28.1 pg Normal 26.0-34.0 Comment on above: Order Comment: Speci men Type: BLOOD SPECIMENOrdering Facility: [facility] Address: [address] [place] [address] Performed By: #### 5 7021-8 ####[facility]ATORYCLIA [id number] [place] [address] [place] MCHC (RBC) [Mass/Vol] 32.5 g/dL Normal 30.5-36.0 [facility] Comment on above: Order Comment: Speci men Type: BLOOD SPECIMENOrdering Facility: [facility] Address: [address] [place] [address] Performed By: #### 5 7021-8 ####[facility]ATORYCLIA [id number] [place] [address] [place] MCV (RBC) [Entitic vol] 86.4 fL Normal 80.0-100.0 Comment on above: Order Comment: Speci men Type: BLOOD SPECIMENOrdering Facility: [facility] Address: [address] [place] [address] Performed By: #### 5 7021-8 ####[facility]ATORYCLIA [id number] [place] [address] [place] Monocytes (Bld) [#/Vol] 1.02 10*3/uL High <0.87 Comment on above: Order Comment: Speci men Type: BLOOD SPECIMENOrdering Facility: [facility] Address: [address] [place] [address] Performed By: #### 5 7021-8 ####[facility]ATORYCLIA [id number] [place] [address] [place] Monocytes/100 WBC (Bld) 9.9 % Normal Comment on above: Order Comment: Speci men Type: BLOOD SPECIMENOrdering Facility: [facility] Address: [address] [place] [address] Performed By: #### 5 7021-8 ####[facility]ATORYCLIA [id number] [place] [address] [place] Neutrophils (Bld) [#/Vol] 7.70 10*3/uL High 1.45-7.50 Comment on above: Order Comment: Speci men Type: BLOOD SPECIMENOrdering Facility: [facility] Address: [address] [place] [address] Performed By: #### 5 7021-8 ####[facility]ATORYCLIA [id number] [place] [address] [place] Neutrophils/100 WBC (Bld) 75.0 % Normal Comment on above: Order Comment: Speci men Type: BLOOD SPECIMENOrdering Facility: [facility] Address: [address] [place] [address] Performed By: #### 5 7021-8 ####[facility]ATORYCLIA [id number] [place] [id number] [place] Nucleated RBC (Bld) [#/Vol] 10*3/uL Normal <0.01 Comment on above: Order Comment: Speci men Type: BLOOD SPECIMENOrdering Facility: [facility] Address: [address] [place] [address] Performed By: #### 5 7021-8 ####[facility]ATORYCLIA [id number] [place] [address] [place] Nucleated RBC/100 WBC (Bld) [Ratio] 0.0 /100 WBC Normal Comment on above: Order Comment: Speci men Type: BLOOD SPECIMENOrdering Facility: [facility] Address: [address] [place] [address] Performed By: #### 5 7021-8 ####[facility]ATORYCLIA [id number] [place] [address] [place] Platelet mean volume (Bld) [Entitic vol] 9.4 fL Normal 9.0-12.7 Comment on above: Order Comment: Speci men Type: BLOOD SPECIMENOrdering Facility: [facility] Address: [address] [place] [address] Performed By: #### 5 7021-8 ####[facility]ATORYCLIA [id number] [place] [id number] [place] Platelets (Bld) [#/Vol] 276 10*3/uL Normal 150-400 Comment on above: Order Comment: Speci men Type: BLOOD SPECIMENOrdering Facility: [facility] Address: [address] [place] [address] Performed By: #### 5 7021-8 ####[facility]ORATORYCLIA [id number] [address] OF [facility] RBC (Bld) [#/Vol] 3.81 10*6/uL Low 3.90-5.20 Comment on above: Order Comment: Speci men Type: BLOOD SPECIMENOrdering Facility: [facility] Address: [address] [place] [address] Performed By: #### 5 7021-8 ####[facility]ATORYCLIA [id number] [address] WBC (Bld) [#/Vol] 10.27 10*3/uL Normal 3.70-11.00 [facility] Comment on above: Order Comment: Speci men Type: BLOOD SPECIMENOrdering Facility: [facility] Address: [address] [place] [address] Performed By: #### 5 7021-8 ####[facility]ATORYCLIA [id number] [address] Comprehensive metabolic 2000 panelon 06-04-2025 Albumin [Mass/Vol] 2.6 g/dL Low 3.2-5.0 Comment on above: Order Comment: Speci men Type: BLOOD SPECIMENOrdering Facility: [facility] Address: [address] [place] [address] Performed By: #### 2 4323-8, 90544-7 ####[facility]ATORYCLIA [id number] [address] [place] ALP [Catalytic activity/Vol] 69 U/L Normal 45-117 Comment on above: Order Comment: Speci men Type: BLOOD SPECIMENOrdering Facility: [facility] Address: [address] [place] [address] Performed By: #### 2 4323-8, 39388-5 ####[facility]ATORYCLIA [id number] [place] [id number] [facility] ALT [Catalytic activity/Vol] 17 U/L Normal 13-61 Comment on above: Order Comment: Speci men Type: BLOOD SPECIMENOrdering Facility: [facility] Address: [address] [place] [address] Result Comment: Resu lts may be falsely depressed after the administration of Sulfasalazine and/or Sulfapyridine. Performed By: #### 2 4323-8, ####[facility]ATORYCLIA [id number] [place] [id number] [place] Anion gap [Moles/Vol] 8 mmol/L Normal 5-16 [facility] Comment on above: Order Comment: Speci men Type: BLOOD SPECIMENOrdering Facility: [facility] Address: [address] [place] [address] Performed By: #### 2 4323-8, ####[facility]ATORYCLIA [id number] [place] [id number] [place] AST [Catalytic activity/Vol] 14 U/L Normal 8-34 Comment on above: Order Comment: Speci men Type: BLOOD SPECIMENOrdering Facility: [facility] Address: [address] [place] [address] Result Comment: Resu lts may be falsely depressed after the administration of Sulfasalazine and/or Sulfapyridine. Performed By: #### 2 4323-8, ####[facility]ATORYCLIA [id number] [place] [id number] [place] Bilirubin [Mass/Vol] 0.3 mg/dL Normal 0.2-1.0 [facility] Comment on above: Order Comment: Speci men Type: BLOOD SPECIMENOrdering Facility: [facility] Address: [address] [place] [address] Performed By: #### 2 4323-8, ####[facility]ATORYCLIA [id number] [place] [address] [place] Calcium [Mass/Vol] 8.8 mg/dL Normal 8.5-10.5 Comment on above: Order Comment: Speci men Type: BLOOD SPECIMENOrdering Facility: [facility] Address: [address] [place] [address] Performed By: #### 2 4323-8, ####[facility]ATORYCLIA [id number] [place] [id number] [place] Chloride [Moles/Vol] 104 mmol/L Normal 98-107 [facility] Comment on above: Order Comment: Speci men Type: BLOOD SPECIMENOrdering Facility: [facility] Address: [address] [place] [address] Performed By: #### 2 4323-8, ####[facility]ATORYCLIA [id number] [place] [id number] [place] CO2 [Moles/Vol] 27 mmol/L Normal 21-32 Comment on above: Order Comment: Speci men Type: BLOOD SPECIMENOrdering Facility: [facility] Address: [address] [place] [address] Performed By: #### 2 4323-8, ####[facility]ATORYCLIA [id number] [place] [id number] [place] Creatinine [Mass/Vol] 0.73 mg/dL Normal 0.51-0.95 [facility] Comment on above: Order Comment: Speci men Type: BLOOD SPECIMENOrdering Facility: [facility] Address: [address] [place] [address] Result Comment: Jose ents receiving either N-Acetylcysteine (NAC) or Metamizole prior to venipuncture, may have falsely depressed results. Performed By: #### 2 4323-8, ####[facility]ATORYCLIA [id number] [place] [id number] [place] eGFRcr SerPlBld CKD-EPI 2020 88 mL/min/1.73m??? Normal >=60 Comment on above: Order Comment: Speci men Type: BLOOD SPECIMENOrdering Facility: [facility] Address: [address], [place] [address] Result Comment: Alecia mated Glomerular Filtration Rate (eGFR) is calculated using the 2020 CKD-EPI creatinine equation. This equation utilizes serum creatinine, sex, and age as parameters. The creatinine assay has traceable calibration to isotope dilution-mass spectrometry. Refer to KDIGO guidelines for clinical interpretation. In patients with unstable renal function, e.g. those with acute kidney injury, the eGFR may not accurately reflect actual GFR. Performed By: #### 2 4323-8, 13850-7 ####[facility]ATORYCLIA [id number] [place] [id number] [place] Glucose [Mass/Vol] 129 mg/dL High 70-100 Comment on above: Order Comment: Jack alberts Type: BLOOD SPECIMENOrdering Facility: [facility] Address: [address] [place] [address] Result Comment: The [place] [employer] (ADA) provides guidance for cutoff values for fasting glucose and random glucose. The ADA defines fasting as no caloric intake for at least 8 hours. Fasting plasma glucose results between 100 to 125 mg/dL indicate increased risk for diabetes (prediabetes).Fasting plasma glucose results greater than or equal to 126 mg/dL meet the criteria for diagnosis of diabetes. In the absence of unequivocal hyperglycemia, results should be confirmed by repeat testing. In a patient with classic symptoms of hyperglycemia or hyperglycemic crisis, random plasma glucose results greater than or equal to 200 mg/dL meet the criteria for diagnosis of diabetes.Reference: Standards of Medical Care in Diabetes 2016, [place] [employer]. Diabetes Care. 2016.39(Suppl 1).Results may be falsely elevated after the administration of Sulfapyridine.Results may be falsely depressed after the administration of Sulfasalazine. Performed By: #### 2 4323-8, ####[facility]ATORYCLIA [id number] [place] [id number] [place] Potassium [Moles/Vol] 3.7 mmol/L Normal 3.5-5.1 [facility] Comment on above: Order Comment: Jack alberts Type: BLOOD SPECIMENOrdering Facility: [facility] Address: [address] [place] [address] Performed By: #### 2 4323-8, ####[facility]ATORYCLIA [id number] [place] [id number] [place] Protein [Mass/Vol] 6.1 g/dL Normal 6.0-8.5 Comment on above: Order Comment: Speci men Type: BLOOD SPECIMENOrdering Facility: [facility] Address: [address] [place] [address] Performed By: #### 2 4323-8, ####[facility]ATORYCLIA [id number] [place] [id number] [place] Sodium [Moles/Vol] 139 mmol/L Normal 136-145 Comment on above: Order Comment: Speci men Type: BLOOD SPECIMENOrdering Facility: [facility] Address: [address] [place] [address] Performed By: #### 2 43238, ####[facility]ATORYCLIA [id number] [place] [id number] [place] Urea nitrogen [Mass/Vol] 14 mg/dL Normal 7-26 Comment on above: Order Comment: Speci men Type: BLOOD SPECIMENOrdering Facility: [facility] Address: [address] [place] [address] Performed By: #### 2 43238, ####[facility]ATORYCLIA [id number] [place] [id number] [place] Magnesium SerPl-mCncon 06-04 Magnesium [Mass/Vol] 1.6 mg/dL Normal 1.6-2.6 [facility] Comment on above: Order Comment: Speci men Type: BLOOD SPECIMENOrdering Facility: [facility] Address: [address] [place] [address] Performed By: #### 2 432-8, ####[facility]ATORYCLIA [id number] [place] [id number] [place] Procalcitonin SerPl-mCncon 1 Procalcitonin [Mass/Vol] 2.56 ng/mL High 0.00-0.50 Comment on above: Order Comment: Jack alberts Type: BLOOD SPECIMENOrdering Facility: [facility] Address: [address] [place] [address] Result Comment: PCT Concentration InterpretationPCT <=0.1 ng/mL:Normal range for healthy adultsPCT >0.1 ng/mL and <0.5 ng/mL:Systemic infection (sepsis) is possible and may require antibiotic treatment, but other conditions are known to elevate PCT as well.PCT >0.5 ng/mL:Should be considered at risk for developing severe sepsis or septic shock.PCT >2.0 ng/mL:Important systemic inflammatory response. Almost exclusively indicates episode of severe bacterial sepsis or septic shock. Performed By: #### 3 3959-8 ####[facility]ORATORYCLIA [id number] [place] [address] [place] Basic metabolic 2000 panelon 06-02-2025 Anion gap [Moles/Vol] 10 mmol/L Normal 5-16 [facility] Comment on above: Order Comment: Jack alberts Type: BLOOD SPECIMENOrdering Facility: [facility] Address: [address] [place] [address] Performed By: #### 2 4321-2, ####[facility]ATORYCLIA [id number] [place] [id number] [place] Calcium [Mass/Vol] 9.2 mg/dL Normal 8.5-10.5 Comment on above: Order Comment: Jack alberts Type: BLOOD SPECIMENOrdering Facility: [facility] Address: [address] [place] [id number] Performed By: #### 2 4321-2, ####[facility] LABORATORYCLIA [id number] [place] [id number] [place] Chloride [Moles/Vol] 103 mmol/L Normal 98-107 [facility] Comment on above: Order Comment: Jack alberts Type: BLOOD SPECIMENOrdering Facility: [facility] Address: [address] [place] [address] Performed By: #### 2 4321-2, ####[facility]ATORYCLIA [id number] [place] [id number] [place] CO2 [Moles/Vol] 27 mmol/L Normal 21-32 Comment on above: Order Comment: Speci men Type: BLOOD SPECIMENOrdering Facility: [facility] Address: [address] [place] [address] Performed By: #### 2 432-2, ####[facility]ATORYCLIA [id number] [place] [id number] [place] [facility] Creatinine [Mass/Vol] 0.97 mg/dL High 0.51-0.95 [facility] Comment on above: Order Comment: Speci men Type: BLOOD SPECIMENOrdering Facility: [facility] Address: [address] [place] [address] Result Comment: Jose ents receiving either N-Acetylcysteine (NAC) or Metamizole prior to venipuncture, may have falsely depressed results. Performed By: #### 2 432-2, ####[facility]ATORYCLIA [id number] [address] eGFRcr SerPlBld CKD-EPI 2020 62 mL/min/1.73m??? Normal >=60 Comment on above: Order Comment: Speci men Type: BLOOD SPECIMENOrdering Facility: [facility] Address: [address] [place] [address] Result Comment: Alecia mated Glomerular Filtration Rate (eGFR) is calculated using the 2020 CKD-EPI creatinine equation. This equation utilizes serum creatinine, sex, and age as parameters. The creatinine assay has traceable calibration to isotope dilution-mass spectrometry. Refer to KDIGO guidelines for clinical interpretation. In patients with unstable renal function, e.g. those with acute kidney injury, the eGFR may not accurately reflect actual GFR. Performed By: #### 2 4321-2, 05292-2 ####[facility]ATORYCLIA [id number] [place] [id number] [place] Glucose [Mass/Vol] 138 mg/dL High 70-100 Comment on above: Order Comment: Jack alberts Type: BLOOD SPECIMENOrdering Facility: [facility] Address: [address] [place], [place] [address] Result Comment: The [place] [employer] (ADA) provides guidance for cutoff values for fasting glucose and random glucose. The ADA defines fasting as no caloric intake for at least 8 hours. Fasting plasma glucose results between 100 to 125 mg/dL indicate increased risk for diabetes (prediabetes).Fasting plasma glucose results greater than or equal to 126 mg/dL meet the criteria for diagnosis of diabetes. In the absence of unequivocal hyperglycemia, results should be confirmed by repeat testing. In a patient with classic symptoms of hyperglycemia or hyperglycemic crisis, random plasma glucose results greater than or equal to 200 mg/dL meet the criteria for diagnosis of diabetes.Reference: Standards of Medical Care in Diabetes 2016, [place] [employer]. Diabetes Care. 2016.39(Suppl 1).Results may be falsely elevated after the administration of Sulfapyridine.Results may be falsely depressed after the administration of Sulfasalazine. Performed By: #### 2 432-, ####[facility]ATORYCLIA [id number] [place] [address] [place] Potassium [Moles/Vol] 4.2 mmol/L Normal 3.5-5.1 [facility] Comment on above: Order Comment: Jack alberts Type: BLOOD SPECIMENOrdering Facility: [facility] Address: [address] [place] [address] Performed By: #### 2 432 ####[facility]ATORYCLIA [id number] [place] [address] [place] Sodium [Moles/Vol] 140 mmol/L Normal 136-145 Comment on above: Order Comment: Jack alberts Type: BLOOD SPECIMENOrdering Facility: [facility] Address: [address] [place] [address] Performed By: #### 2 43208-25, ####[facility]ATORYCLIA [id number] [place] [address] [place] Urea nitrogen [Mass/Vol] 17 mg/dL Normal 7-26 Comment on above: Order Comment: Speci men Type: BLOOD SPECIMENOrdering Facility: [facility] Address: [address] [place] [address] Performed By: #### 2 4321-2, 83687-4 ####[facility]ATORYCLIA [id number] [place] [id number] [place] CASE MANAGEMon 06-02-2025 CASE MANAGEM Normal CBC panel Auto (Bld)on 06-02 Erythrocyte distribution width (RBC) [Ratio] 15.4 % High 11.5-15.0 Comment on above: Order Comment: Speci men Type: BLOOD SPECIMENOrdering Facility: [facility] Address: [address] [place] [address] Performed By: #### 5 8410-2 ####[facility]ATORYCLIA [id number] [address] [place] Hematocrit (Bld) [Volume fraction] 33.7 % Low 36.0-46.0 Comment on above: Order Comment: Speci men Type: BLOOD SPECIMENOrdering Facility: [facility] Address: [address] [place] [address] Performed By: #### 5 8410-2 ####[facility]ATORYCLIA [id number] [place] [address] [place] Hemoglobin (Bld) [Mass/Vol] 10.7 g/dL Low 11.5-15.5 Comment on above: Order Comment: Speci men Type: BLOOD SPECIMENOrdering Facility: [facility] Address: [address] [place] [address] Performed By: #### 5 8410-2 ####[facility]ATORYCLIA [id number] [place] [id number] [place] MCH (RBC) [Entitic mass] 28.5 pg Normal 26.0-34.0 Comment on above: Order Comment: Speci men Type: BLOOD SPECIMENOrdering Facility: [facility] Address: [address] [place] [address] Performed By: #### 5 8410-2 ####[facility]ATORYCLIA [id number] [address] STATES OF [facility] MCHC (RBC) [Mass/Vol] 31.8 g/dL Normal 30.5-36.0 [facility] Comment on above: Order Comment: Speci men Type: BLOOD SPECIMENOrdering Facility: [facility] Address: [address] [place] [address] Performed By: #### 5 8410-2 ####[facility]ATORYCLIA [id number] [place] [address] [place] MCV (RBC) [Entitic vol] 89.9 fL Normal 80.0-100.0 Comment on above: Order Comment: Speci men Type: BLOOD SPECIMENOrdering Facility: [facility] Address: [address] [place] [address] Performed By: #### 5 8410-2 ####[facility]ATORYCLIA [id number] [place] [address] [place] Nucleated RBC (Bld) [#/Vol] 10*3/uL Normal <0.01 Comment on above: Order Comment: Speci men Type: BLOOD SPECIMENOrdering Facility: [facility] Address: [address] [place] [address] Performed By: #### 5 8410-2 ####[facility]ATORYCLIA [id number] [address] [place] Platelet mean volume (Bld) [Entitic vol] 9.8 fL Normal 9.0-12.7 Comment on above: Order Comment: Speci men Type: BLOOD SPECIMENOrdering Facility: [facility] Address: [address] [place] [address] Performed By: #### 5 8410-2 ####[facility]ATORYCLIA [id number] [address] [place] Platelets (Bld) [#/Vol] 249 10*3/uL Normal 150-400 Comment on above: Order Comment: Speci men Type: BLOOD SPECIMENOrdering Facility: [facility] Address: [address] [place] [address] Performed By: #### 5 8410-2 ####[facility]ATORYCLIA [id number] [place] [address] [place] RBC (Bld) [#/Vol] 3.75 10*6/uL Low 3.90-5.20 Comment on above: Order Comment: Speci men Type: BLOOD SPECIMENOrdering Facility: [facility] Address: [address] [place] [address] Performed By: #### 5 8410-2 ####[facility]ATORYCLIA [id number] [address] OF [facility] WBC (Bld) [#/Vol] 18.82 10*3/uL High 3.70-11.00 [facility] Comment on above: Order Comment: Speci men Type: BLOOD SPECIMENOrdering Facility: [facility] Address: [address] [place] [address] Performed By: #### 5 8410-2 ####[facility]ATORYCLIA [id number] [address] [place] CONSULTon 06-02-2025 CONSULT Normal CONSULT PROGon 06-02-2025 CONSULT PROG Normal Magnesium SerPl-mCncon 06-02 Magnesium [Mass/Vol] 1.7 mg/dL Normal 1.6-2.6 [facility] Comment on above: Order Comment: Speci men Type: BLOOD SPECIMENOrdering Facility: [facility] Address: [address] [place] [address] Performed By: #### 2 4321-2, 86938-9 ####[facility]ATORYCLIA [id number] [address] [place] Procalcitonin SerPl-mCncon 1 Procalcitonin [Mass/Vol] 8.64 ng/mL High 0.00-0.50 Comment on above: Order Comment: Sandiei lexus Type: BLOOD SPECIMENOrdering Facility: [facility] Address: [address] [place], [place] [address] Result Comment: PCT Concentration InterpretationPCT <=0.1 ng/mL:Normal range for healthy adultsPCT >0.1 ng/mL and <0.5 ng/mL:Systemic infection (sepsis) is possible and may require antibiotic treatment, but other conditions are known to elevate PCT as well.PCT >0.5 ng/mL:Should be considered at risk for developing severe sepsis or septic shock.PCT >2.0 ng/mL:Important systemic inflammatory response. Almost exclusively indicates episode of severe bacterial sepsis or septic shock. Performed By: #### 3 3959-8 ####[facility]ATORYCLIA [id number] [place] [address] [place] ANES POSTPROC EVALon 025 ANES POSTPROC EVAL Normal ANES PRE-OPon 06-01-2025 ANES PRE-OP Normal Basic metabolic 2000 panelon 06-01-2025 Anion gap [Moles/Vol] 8 mmol/L Normal 5-16 [facility] Comment on above: Order Comment: Speci lexus Type: BLOOD SPECIMENOrdering Facility: [facility] Address: [address] [place] [address] Performed By: #### 2 4321-2 ####[facility]ATORYCLIA [id number] [place] [id number] [place] Calcium [Mass/Vol] 8.5 mg/dL Normal 8.5-10.5 Comment on above: Order Comment: Sandiei lexus Type: BLOOD SPECIMENOrdering Facility: [facility] Address: [address] [place] [address] Performed By: #### 2 4321-2 ####[facility]ATORYCLIA [id number] [place] [id number] [place] Chloride [Moles/Vol] 101 mmol/L Normal 98-107 [facility] Comment on above: Order Comment: Speci men Type: BLOOD SPECIMENOrdering Facility: [facility] Address: [address] [place] [address] Performed By: #### 2 4321-2 ####[facility]ATORYCLIA [id number] [place] [id number] [place] CO2 [Moles/Vol] 26 mmol/L Normal 21-32 Comment on above: Order Comment: Speci men Type: BLOOD SPECIMENOrdering Facility: [facility] Address: [address] [place] [address] Performed By: #### 2 4321-2 ####[facility]ATORYCLIA [id number] [place] [address] [place] Creatinine [Mass/Vol] 1.05 mg/dL High 0.51-0.95 [facility] Comment on above: Order Comment: Speci men Type: BLOOD SPECIMENOrdering Facility: [facility] Address: [address] [place] [address] Result Comment: Jose ents receiving either N-Acetylcysteine (NAC) or Metamizole prior to venipuncture, may have falsely depressed results. Performed By: #### 2 4321-2 ####[facility]ATORYCLIA [id number] [place] [address] [place] eGFRcr SerPlBld CKD-EPI 2020 57 mL/min/1.73m??? Low >=60 Comment on above: Order Comment: Sandiei men Type: BLOOD SPECIMENOrdering Facility: [facility] Address: [address] [place] [address] Result Comment: Alecia mated Glomerular Filtration Rate (eGFR) is calculated using the 2020 CKD-EPI creatinine equation. This equation utilizes serum creatinine, sex, and age as parameters. The creatinine assay has traceable calibration to isotope dilution-mass spectrometry. Refer to KDIGO guidelines for clinical interpretation. In patients with unstable renal function, e.g. those with acute kidney injury, the eGFR may not accurately reflect actual GFR. Performed By: #### 2 4321-2 ####[facility]ATORYCLIA [id number] [place] [id number] [place] Glucose [Mass/Vol] 153 mg/dL High 70-100 Comment on above: Order Comment: Speci men Type: BLOOD SPECIMENOrdering Facility: [facility] Address: [address] [place] [address] Result Comment: The [place] Diabetes Association (ADA) provides guidance for cutoff values for fasting glucose and random glucose. The ADA defines fasting as no caloric intake for at least 8 hours. Fasting plasma glucose results between 100 to 125 mg/dL indicate increased risk for diabetes (prediabetes).Fasting plasma glucose results greater than or equal to 126 mg/dL meet the criteria for diagnosis of diabetes. In the absence of unequivocal hyperglycemia, results should be confirmed by repeat testing. In a patient with classic symptoms of hyperglycemia or hyperglycemic crisis, random plasma glucose results greater than or equal to 200 mg/dL meet the criteria for diagnosis of diabetes.Reference: Standards of Medical Care in Diabetes 2016, [place] [employer]. Diabetes Care. 2016.39(Suppl 1).Results may be falsely elevated after the administration of Sulfapyridine.Results may be falsely depressed after the administration of Sulfasalazine. Performed By: #### 2 4321-2 ####[facility]ATORYCLIA [id number] [place] [address] [place] Potassium [Moles/Vol] 4.1 mmol/L Normal 3.5-5.1 [facility] Comment on above: Order Comment: Speci men Type: BLOOD SPECIMENOrdering Facility: [facility] Address: [address] [place] [address] Performed By: #### 2 4321-2 ####[facility]ATORYCLIA [id number] [place] [address] [place] Sodium [Moles/Vol] 135 mmol/L Low 136-145 Comment on above: Order Comment: Speci men Type: BLOOD SPECIMENOrdering Facility: [facility] Address: [address] [place] [id number] Performed By: #### 2 4321-2 ####[facility]ATORYCLIA [id number] [place] [id number] [place] Urea nitrogen [Mass/Vol] 12 mg/dL Normal 03-18 Comment on above: Order Comment: Speci men Type: BLOOD SPECIMENOrdering Facility: [facility] Address: [address] [place] [address] Performed By: #### 2 4321-2 ####[facility]ATORYCLIA [id number] [place] [address] [place] CASE MGT INIT ASSESon 2024 CASE MGT INIT ASSES Normal CBC W Auto Differential pane l (Bld)on 06-01-2025 Basophils (Bld) [#/Vol] 0.05 10*3/uL Normal <0.11 Comment on above: Order Comment: Speci men Type: BLOOD SPECIMENOrdering Facility: [facility] Address: [address] [place] [address] Performed By: #### 5 7021-8 ####[facility]ATORYCLIA [id number] [place] [address] [place] Basophils/100 WBC (Bld) 0.2 % Normal Comment on above: Order Comment: Speci men Type: BLOOD SPECIMENOrdering Facility: [facility] Address: [address] [place] [address] Performed By: #### 5 7021-8 ####[facility]ATORYCLIA [id number] [place] [address] [place] Differential cell count method Nom (Bld) Auto Normal Comment on above: Order Comment: Speci men Type: BLOOD SPECIMENOrdering Facility: [facility] Address: [address] [place] [address] Performed By: #### 5 7021-8 ####[facility]ATORYCLIA [id number] [place] [address] [place] Eosinophils (Bld) [#/Vol] 10*3/uL Normal <0.46 Comment on above: Order Comment: Speci men Type: BLOOD SPECIMENOrdering Facility: [facility] Address: [address] [place] [address] Performed By: #### 5 7021-8 ####[facility]ATORYCLIA [id number] [address] [place] Eosinophils/100 WBC (Bld) 0.0 % Normal Comment on above: Order Comment: Speci men Type: BLOOD SPECIMENOrdering Facility: [facility] Address: [address] [place] [address] Performed By: #### 5 7021-8 ####[facility]ATORYCLIA [id number] [place] [address] [place] Erythrocyte distribution width (RBC) [Ratio] 15.2 % High 11.5-15.0 Comment on above: Order Comment: Speci men Type: BLOOD SPECIMENOrdering Facility: [facility] Address: [address] [place] [address] Performed By: #### 5 7021-8 ####[facility]ATORYCLIA [id number] [place] [address] [place] Hematocrit (Bld) [Volume fraction] 32.6 % Low 36.0-46.0 Comment on above: Order Comment: Speci men Type: BLOOD SPECIMENOrdering Facility: [facility] Address: [address] [place] [address] Performed By: #### 5 7021-8 ####[facility]ATORYCLIA [id number] [place] [address] [place] Hemoglobin (Bld) [Mass/Vol] 10.6 g/dL Low 11.5-15.5 Comment on above: Order Comment: Speci men Type: BLOOD SPECIMENOrdering Facility: [facility] Address: [address] [place] [address] Performed By: #### 5 7021-8 ####[facility]ATORYCLIA [id number] [address] [place] Immature granulocytes (Bld) [#/Vol] 0.17 10*3/uL High <0.10 Comment on above: Order Comment: Speci men Type: BLOOD SPECIMENOrdering Facility: [facility] Address: [address] [place] [address] Performed By: #### 5 7021-8 ####[facility]ATORYCLIA [id number] [place] [address] [place] Immature granulocytes/100 WBC (Bld) 0.8 % Normal Comment on above: Order Comment: Speci men Type: BLOOD SPECIMENOrdering Facility: [facility] Address: [address] [place] [address] Performed By: #### 5 7021-8 ####[facility]ATORYCLIA [id number] [place] [address] [place] Lymphocytes (Bld) [#/Vol] 0.90 10*3/uL Low 1.00-4.00 Comment on above: Order Comment: Speci men Type: BLOOD SPECIMENOrdering Facility: [facility] Address: [address] [place] [address] Performed By: #### 5 7021-8 ####[facility]ATORYCLIA [id number] [address] [place] Lymphocytes/100 WBC (Bld) 4.3 % Normal Comment on above: Order Comment: Speci men Type: BLOOD SPECIMENOrdering Facility: [facility] Address: [address] [place] [address] Performed By: #### 5 7021-8 ####[facility]ATORYCLIA [id number] [place] [address] [place] MCH (RBC) [Entitic mass] 28.3 pg Normal 26.0-34.0 Comment on above: Order Comment: Speci men Type: BLOOD SPECIMENOrdering Facility: [facility] Address: [address] [place] [address] Performed By: #### 5 7021-8 ####[facility]ATORYCLIA [id number] [place] [id number] [place] MCHC (RBC) [Mass/Vol] 32.5 g/dL Normal 30.5-36.0 [facility] Comment on above: Order Comment: Speci men Type: BLOOD SPECIMENOrdering Facility: [facility] Address: [address] [place] [address] Performed By: #### 5 7021-8 ####[facility]ATORYCLIA [id number] [place] [address] [place] MCV (RBC) [Entitic vol] 87.2 fL Normal 80.0-100.0 Comment on above: Order Comment: Speci men Type: BLOOD SPECIMENOrdering Facility: [facility] Address: [address] [place] [address] Performed By: #### 5 7021-8 ####[facility]ATORYCLIA [id number] [place] [address] [place] Monocytes (Bld) [#/Vol] 1.53 10*3/uL High <0.87 Comment on above: Order Comment: Speci men Type: BLOOD SPECIMENOrdering Facility: [facility] Address: [address] [place] [address] Performed By: #### 5 7021-8 ####[facility]ATORYCLIA [id number] [address] [place] Monocytes/100 WBC (Bld) 7.4 % Normal Comment on above: Order Comment: Speci men Type: BLOOD SPECIMENOrdering Facility: [facility] Address: [address] [place] [address] Performed By: #### 5 7021-8 ####[facility]ATORYCLIA [id number] [place] [address] [place] Neutrophils (Bld) [#/Vol] 18.10 10*3/uL High 1.45-7.50 Comment on above: Order Comment: Speci men Type: BLOOD SPECIMENOrdering Facility: [facility] Address: [address] [place] [address] Performed By: #### 5 7021-8 ####[facility]ATORYCLIA [id number] [place] [id number] [place] Neutrophils/100 WBC (Bld) 87.3 % Normal Comment on above: Order Comment: Speci men Type: BLOOD SPECIMENOrdering Facility: [facility] Address: [address] [place] [address] Performed By: #### 5 7021-8 ####[facility]ATORYCLIA [id number] [place] [address] [place] Nucleated RBC (Bld) [#/Vol] 10*3/uL Normal <0.01 Comment on above: Order Comment: Speci men Type: BLOOD SPECIMENOrdering Facility: [facility] Address: [address] [place] [address] Performed By: #### 5 7021-8 ####[facility]ATORYCLIA [id number] [place] [address] [place] Nucleated RBC/100 WBC (Bld) [Ratio] 0.0 /100 WBC Normal Comment on above: Order Comment: Speci men Type: BLOOD SPECIMENOrdering Facility: [facility] Address: [address] [place] [address] Performed By: #### 5 7021-8 ####[facility]ATORYCLIA [id number] [place] [address] [place] Platelet mean volume (Bld) [Entitic vol] 9.6 fL Normal 9.0-12.7 Comment on above: Order Comment: Speci men Type: BLOOD SPECIMENOrdering Facility: [facility] Address: [address] [place] [address] Performed By: #### 5 7021-8 ####[facility]ATORYCLIA [id number] [place] [id number] [place] Platelets (Bld) [#/Vol] 259 10*3/uL Normal 150-400 Comment on above: Order Comment: Speci men Type: BLOOD SPECIMENOrdering Facility: [facility] Address: [address] [place], [place] [address] Performed By: #### 5 7021-8 ####[facility]ATORYCLIA [id number] [place] [address] [place] RBC (Bld) [#/Vol] 3.74 10*6/uL Low 3.90-5.20 Comment on above: Order Comment: Speci men Type: BLOOD SPECIMENOrdering Facility: [facility] Address: [address] [place] [address] Performed By: #### 5 7021-8 ####[facility]ATORYCLIA [id number] [place] [address] [place] WBC (Bld) [#/Vol] 20.75 10*3/uL High 3.70-11.00 [facility] Comment on above: Order Comment: Speci men Type: BLOOD SPECIMENOrdering Facility: [facility] Address: [address] [place] [address] Performed By: #### 5 7021-8 ####[facility] LABORATORYCLIA [id number] [place] [id number] [place] CONSULTon 06-01-2025 CONSULT Normal NURSING PROGon 06-01-2025 NURSING PROG Normal NUTRITIONon 06-01-2025 NUTRITION Normal OPERATIVE NOon 06-01-2025 OPERATIVE NO [facility] Bacteria Bld Culton 05-31-20 25 Bacteria identified Cx Nom (Bld) Normal Comment on above: Performed By: #### 5 0219-5, 600-7 ####[facility]ATORYCLIA [id number] [place] [address] [place] Bacteria identified Cx Nom (Bld) ORGANISM ID: [id number] Pseudomonas aeruginosa Please refer to [id number] (collected 05/31/2025 at 1940) for susceptibilities. GRAM STAIN: Gram negative bacilli Abnormal Comment on above: Performed By: #### 6 00-7 ####[facility]ATORYCLIA [id number] [address] OF [facility] Bacteria Ur Culton Bacteria identified Cx Nom (U) Normal Comment on above: Performed By: #### 6 30-4 ####[facility]ORYCLIA [id number] [address] OF [facility] CBC W Auto Differential pane l (Bld)on 05-31-2025 Basophils (Bld) [#/Vol] 0.03 10*3/uL Normal <0.11 Comment on above: Order Comment: Speci men Type: BLOOD SPECIMENOrdering Facility: [facility] Address: [address] [place] [address] Performed By: #### 5 7021-8 ####[facility]ATORYCLIA [id number] [address] [place] Basophils/100 WBC (Bld) 0.2 % Normal Comment on above: Order Comment: Speci men Type: BLOOD SPECIMENOrdering Facility: [facility] Address: [address] [place] [address] Performed By: #### 5 7021-8 ####[facility]ATORYCLIA [id number] [address] Differential cell count method Nom (Bld) Auto Normal Comment on above: Order Comment: Speci men Type: BLOOD SPECIMENOrdering Facility: [facility] Address: [address] [place] [address] Performed By: #### 5 7021-8 ####[facility]ATORYCLIA [id number] [place] [address] [place] Eosinophils (Bld) [#/Vol] 10*3/uL Normal <0.46 Comment on above: Order Comment: Speci men Type: BLOOD SPECIMENOrdering Facility: [facility] Address: [address] [place] [address] Performed By: #### 5 7021-8 ####[facility]ATORYCLIA [id number] [place] [id number] [place] Eosinophils/100 WBC (Bld) 0.1 % Normal Comment on above: Order Comment: Speci men Type: BLOOD SPECIMENOrdering Facility: [facility] Address: [address] [place] [address] Performed By: #### 5 7021-8 ####[facility]ATORYCLIA [id number] [place] [address] [place] Erythrocyte distribution width (RBC) [Ratio] 14.9 % Normal 11.5-15.0 Comment on above: Order Comment: Speci men Type: BLOOD SPECIMENOrdering Facility: [facility] Address: [address] [place] [address] Performed By: #### 5 7021-8 ####[facility]ATORYCLIA [id number] [place] [address] [place] Hematocrit (Bld) [Volume fraction] 37.6 % Normal 36.0-46.0 Comment on above: Order Comment: Speci men Type: BLOOD SPECIMENOrdering Facility: [facility] Address: [address] [place] [address] Performed By: #### 5 7021-8 ####[facility]ATORYCLIA [id number] [place] [id number] [place] Hemoglobin (Bld) [Mass/Vol] 12.4 g/dL Normal 11.5-15.5 Comment on above: Order Comment: Speci men Type: BLOOD SPECIMENOrdering Facility: [facility] Address: [address] [place] [address] Performed By: #### 5 7021-8 ####[facility]ORYCLIA [id number] [place] [id number] [place] Immature granulocytes (Bld) [#/Vol] 0.13 10*3/uL High <0.10 Comment on above: Order Comment: Speci men Type: BLOOD SPECIMENOrdering Facility: [facility] Address: [address] [place] [address] Performed By: #### 5 7021-8 ####[facility]ORYCLIA [id number] [address] [place] Immature granulocytes/100 WBC (Bld) 0.8 % Normal Comment on above: Order Comment: Speci men Type: BLOOD SPECIMENOrdering Facility: [facility] Address: [address] [place] [address] Performed By: #### 5 7021-8 ####[facility]ATORYCLIA [id number] [place] [address] [place] Lymphocytes (Bld) [#/Vol] 0.95 10*3/uL Low 1.00-4.00 Comment on above: Order Comment: Speci men Type: BLOOD SPECIMENOrdering Facility: [facility] Address: [address] [place] [address] Performed By: #### 5 7021-8 ####[facility]ATORYCLIA [id number] [address] [place] Lymphocytes/100 WBC (Bld) 5.6 % Normal Comment on above: Order Comment: Speci men Type: BLOOD SPECIMENOrdering Facility: [facility] Address: [address] [place] [address] Performed By: #### 5 7021-8 ####[facility]ATORYCLIA [id number] [place] [address] [place] MCH (RBC) [Entitic mass] 28.6 pg Normal 26.0-34.0 Comment on above: Order Comment: Speci men Type: BLOOD SPECIMENOrdering Facility: [facility] Address: [address] [place] [address] Performed By: #### 5 7021-8 ####[facility]ATORYCLIA [id number] [place] [address] [place] MCHC (RBC) [Mass/Vol] 33.0 g/dL Normal 30.5-36.0 [facility] Comment on above: Order Comment: Speci men Type: BLOOD SPECIMENOrdering Facility: [facility] Address: [address] [place] [address] Performed By: #### 5 7021-8 ####[facility]ATORYCLIA [id number] [place] [address] [place] MCV (RBC) [Entitic vol] 86.6 fL Normal 80.0-100.0 Comment on above: Order Comment: Speci men Type: BLOOD SPECIMENOrdering Facility: [facility] Address: [address] [place] [address] Performed By: #### 5 7021-8 ####[facility]ATORYCLIA [id number] [place] [address] [place] Monocytes (Bld) [#/Vol] 0.98 10*3/uL High <0.87 Comment on above: Order Comment: Speci men Type: BLOOD SPECIMENOrdering Facility: [facility] Address: [address] [place] [address] Performed By: #### 5 7021-8 ####[facility]ATORYCLIA [id number] [place] [address] [place] Monocytes/100 WBC (Bld) 5.8 % Normal Comment on above: Order Comment: Speci men Type: BLOOD SPECIMENOrdering Facility: [facility] Address: [address] [place] [address] Performed By: #### 5 7021-8 ####[facility]ATORYCLIA [id number] [place] [address] [place] Neutrophils (Bld) [#/Vol] 14.73 10*3/uL High 1.45-7.50 Comment on above: Order Comment: Speci men Type: BLOOD SPECIMENOrdering Facility: [facility] Address: [address] [place] [address] Performed By: #### 5 7021-8 ####[facility]ATORYCLIA [id number] [place] [address] [place] Neutrophils/100 WBC (Bld) 87.5 % Normal Comment on above: Order Comment: Speci men Type: BLOOD SPECIMENOrdering Facility: [facility] Address: [address] [place] [address] Performed By: #### 5 7021-8 ####[facility]ATORYCLIA [id number] [place] [address] [place] Nucleated RBC (Bld) [#/Vol] 10*3/uL Normal <0.01 Comment on above: Order Comment: Speci men Type: BLOOD SPECIMENOrdering Facility: [facility] Address: [address] [place] [address] Performed By: #### 5 7021-8 ####[facility]ATORYCLIA [id number] [place] [address] [place] Nucleated RBC/100 WBC (Bld) [Ratio] 0.0 /100 WBC Normal Comment on above: Order Comment: Speci men Type: BLOOD SPECIMENOrdering Facility: [facility] Address: [address] [place] [address] Performed By: #### 5 7021-8 ####[facility]ATORYCLIA [id number] [place] [address] [place] Platelet mean volume (Bld) [Entitic vol] 9.3 fL Normal 9.0-12.7 Comment on above: Order Comment: Speci men Type: BLOOD SPECIMENOrdering Facility: [facility] Address: [address] [place] [address] Performed By: #### 5 7021-8 ####[facility]ATORYCLIA [id number] [place] [address] [place] Platelets (Bld) [#/Vol] 312 10*3/uL Normal 150-400 Comment on above: Order Comment: Speci men Type: BLOOD SPECIMENOrdering Facility: [facility] Address: [address] [place] [address] Performed By: #### 5 7021-8 ####[facility]ATORYCLIA [id number] [address] RBC (Bld) [#/Vol] 4.34 10*6/uL Normal 3.90-5.20 Comment on above: Order Comment: Speci men Type: BLOOD SPECIMENOrdering Facility: [facility] Address: [address] [place] [address] Performed By: #### 5 7021-8 ####[facility]ATORYCLIA [id number] [address] WBC (Bld) [#/Vol] 16.83 10*3/uL High 3.70-11.00 [facility] Comment on above: Order Comment: Speci men Type: BLOOD SPECIMENOrdering Facility: [facility] Address: [address] [place] [address] Performed By: #### 5 7021-8 ####[facility]ATORYCLIA [id number] [address] [place] CNPNon 05-31-[address] ABD/PEL W IVCONon 025 CT ABD/PEL W IVCON Normal Comprehensive metabolic 2000 panelon 05-31-2025 Albumin [Mass/Vol] 3.7 g/dL Normal 3.2-5.0 Comment on above: Order Comment: Speci men Type: BLOOD SPECIMENOrdering Facility: [facility] Address: [address] [place], [place] [address] Performed By: #### 2 4323-8, 3040-3, HSTROP ####[facility]ATORYCLIA [id number] [address] [place] ALP [Catalytic activity/Vol] 59 U/L Normal 45-117 Comment on above: Order Comment: Speci men Type: BLOOD SPECIMENOrdering Facility: [facility] Address: [address] [place] [address] Performed By: #### 2 4323-8, 3040-3, HSTROP ####[facility]ATORYCLIA [id number] [place] [id number] [place] ALT [Catalytic activity/Vol] 13 U/L Normal 13-61 Comment on above: Order Comment: Speci men Type: BLOOD SPECIMENOrdering Facility: [facility] Address: [address] [place] [address] Result Comment: Resu lts may be falsely depressed after the administration of Sulfasalazine and/or Sulfapyridine. Performed By: #### 2 4323-8, 3039-3, HSTROP ####[facility]ATORYCLIA [id number] [address] STATES OF [facility] Anion gap [Moles/Vol] 9 mmol/L Normal 5-16 [facility] Comment on above: Order Comment: Speci men Type: BLOOD SPECIMENOrdering Facility: [facility] Address: [address] [place] [address] Performed By: #### 2 4323-8, 0-3, HSTROP ####[facility]ATORYCLIA [id number] [place] [address] [place] AST [Catalytic activity/Vol] 13 U/L Normal 8-34 Comment on above: Order Comment: Speci men Type: BLOOD SPECIMENOrdering Facility: [facility] Address: [address] [place] [address] Result Comment: Resu lts may be falsely depressed after the administration of Sulfasalazine and/or Sulfapyridine. Performed By: #### 2 4323-8, 3040-3, HSTROP ####[facility]ATORYCLIA [id number] [place] [id number] [place] Bilirubin [Mass/Vol] 0.5 mg/dL Normal 0.2-1.0 [facility] Comment on above: Order Comment: Speci men Type: BLOOD SPECIMENOrdering Facility: [facility] Address: [address] [place] [address] Performed By: #### 2 4323-8, 3040-3, HSTROP ####[facility]ATORYCLIA [id number] [place] [id number] [place] Calcium [Mass/Vol] 9.3 mg/dL Normal 8.5-10.5 Comment on above: Order Comment: Speci men Type: BLOOD SPECIMENOrdering Facility: [facility] Address: [address] [place] [address] Performed By: #### 2 4323-8, 3040-3, HSTROP ####[facility]ATORYCLIA [id number] [place] [id number] [place] Chloride [Moles/Vol] 99 mmol/L Normal 98-107 [facility] Comment on above: Order Comment: Speci men Type: BLOOD SPECIMENOrdering Facility: [facility] Address: [address] [place] [address] Performed By: #### 2 4323-8, 3040-3, HSTROP ####[facility]ATORYCLIA [id number] [place] [id number] [place] CO2 [Moles/Vol] 28 mmol/L Normal 21-32 Comment on above: Order Comment: Speci men Type: BLOOD SPECIMENOrdering Facility: [facility] Address: [address] [place] [address] Performed By: #### 2 4323-8, 3040-3, HSTROP ####[facility]ATORYCLIA [id number] [place] [id number] [place] Creatinine [Mass/Vol] 0.91 mg/dL Normal 0.51-0.95 [facility] Comment on above: Order Comment: Speci men Type: BLOOD SPECIMENOrdering Facility: [facility] Address: [address] [place] [address] Result Comment: Jose ents receiving either N-Acetylcysteine (NAC) or Metamizole prior to venipuncture, may have falsely depressed results. Performed By: #### 2 4323-8, 3040-3, HSTROP ####[facility]ATORYCLIA [id number] [place] [id number] [place] eGFRcr SerPlBld CKD-EPI 2020 67 mL/min/1.73m??? Normal >=60 Comment on above: Order Comment: Jack alberts Type: BLOOD SPECIMENOrdering Facility: [facility] Address: [address] [place] [address] Result Comment: Alecia mated Glomerular Filtration Rate (eGFR) is calculated using the 2020 CKD-EPI creatinine equation. This equation utilizes serum creatinine, sex, and age as parameters. The creatinine assay has traceable calibration to isotope dilution-mass spectrometry. Refer to KDIGO guidelines for clinical interpretation. In patients with unstable renal function, e.g. those with acute kidney injury, the eGFR may not accurately reflect actual GFR. Performed By: #### 2 4323-8, 3040-3, HSTROP ####[facility]ATORYCLIA [id number] [place] [id number] [place] Glucose [Mass/Vol] 159 mg/dL High 70-100 Comment on above: Order Comment: Jack alberts Type: BLOOD SPECIMENOrdering Facility: [facility] Address: [address] [place] [address] Result Comment: The [place] [employer] Association (ADA) provides guidance for cutoff values for fasting glucose and random glucose. The ADA defines fasting as no caloric intake for at least 8 hours. Fasting plasma glucose results between 100 to 125 mg/dL indicate increased risk for diabetes (prediabetes).Fasting plasma glucose results greater than or equal to 126 mg/dL meet the criteria for diagnosis of diabetes. In the absence of unequivocal hyperglycemia, results should be confirmed by repeat testing. In a patient with classic symptoms of hyperglycemia or hyperglycemic crisis, random plasma glucose results greater than or equal to 200 mg/dL meet the criteria for diagnosis of diabetes.Reference: Standards of Medical Care in Diabetes 2016, [place] [employer]. Diabetes Care. 2016.39(Suppl 1).Results may be falsely elevated after the administration of Sulfapyridine.Results may be falsely depressed after the administration of Sulfasalazine. Performed By: #### 2 4323-8, 3040-3, HSTROP ####[facility]ATORYCLIA [id number] [place] [id number] [place] Potassium [Moles/Vol] 4.6 mmol/L Normal 3.5-5.1 [facility] Comment on above: Order Comment: Speci men Type: BLOOD SPECIMENOrdering Facility: [facility] Address: [address] [place] [address] Performed By: #### 2 4323-8, 3039-3, HSTROP ####[facility]ATORYCLIA [id number] [place] [id number] [place] Protein [Mass/Vol] 7.2 g/dL Normal 6.0-8.5 Comment on above: Order Comment: Speci men Type: BLOOD SPECIMENOrdering Facility: [facility] Address: [address] [place] [address] Performed By: #### 2 4323-8, 3039-3, HSTROP ####[facility]ATORYCLIA [id number] [place] [address] [place] Sodium [Moles/Vol] 136 mmol/L Normal 136-145 Comment on above: Order Comment: Speci men Type: BLOOD SPECIMENOrdering Facility: [facility] Address: [address] [place] [address] Performed By: #### 2 4323-8, 3039-3, HSTROP ####[facility]ATORYCLIA [id number] [place] [id number] [place] Urea nitrogen [Mass/Vol] 13 mg/dL Normal 7-26 Comment on above: Order Comment: Speci men Type: BLOOD SPECIMENOrdering Facility: [facility] Address: [address] [place] [address] Performed By: #### 2 4323-8, 0-3, HSTROP ####[facility]ATORYCLIA [id number] [place] [address] [place] ECG COMPLETEon 05-31-2025 ECG COMPLETE Normal ED NOTEon 05-31-2025 ED NOTE HNO ID: [id number] Author: MICHAEL OVIEDO PCNA Service: ? Author Type: Patient Care Powerhouse Laborer Type: ED Notes Filed: 05/31/2025 19:02 Note Text: Paged Sepsis alert @ 19:[address] Armond MD [facility] ED NOTE HNO ID: [id number] Author: NOÉ MILLER Medic Service: ? Author Type: Toolmaker Helper and Bulb Planter Type: ED Notes Filed: 05/31/2025 16:01 Note Text: Bed: 04-ED Expected date: Expected time: Means of arrival: Comments: PIT [facility] ED PROV NOTEon 05-31-2025 ED PROV NOTE [facility] ED Triage Noteon 05-31-2025 ED Triage Note Normal HIGH SENSITIVITY TROPONIN Io n 05-31-2025 Tropinin I.cardiac panel High sensitivity method <2.5 Normal 0.0-34.0 Comment on above: Order Comment: Speci men Type: BLOOD SPECIMENOrdering Facility: [facility] Address: [address] [place] [address] Performed By: #### 2 4323-8, 3040-3, HSTROP ####[facility]ATORYCLIA [id number] [place] [address] [place] HISTORY PHYSICALon HISTORY PHYSICAL Normal Lipase SerPl-cCncon 05-31-20 25 Lipase [Catalytic activity/Vol] 28 U/L Normal 12-60 Comment on above: Order Comment: Speci men Type: BLOOD SPECIMENOrdering Facility: [facility] Address: [address] [place] [address] Performed By: #### 2 4323-8, 3040-3, HSTROP ####[facility]ATORYCLIA [id number] [place] [address] [place] Resp path 12a Pnl Spec FANI+p robeon 10-08-2025 Respiratory pathogens DNA and RNA 12a panel FANI+probe (Unsp spec) BCID INTERPRETATION: Pseudomonas aeruginosa detected by PCR. Confirmation and susceptibility testing to follow. Abnormal Comment on above: Performed By: #### 5 0219-5, 600-7 ####[facility]ATORYCLIA [id number] [address] [place] SEPSIS LACTATE W/ REFLEX (IN ITIAL)on 05-31-2025 Lactate [Moles/Vol] 1.4 mmol/L Normal 0.4-2.0 Comment on above: Order Comment: Speci men Type: BLOOD SPECIMENOrdering Facility: [facility] Address: [address] [place] [address] Performed By: #### S LACTR ####[facility]ATORYCLIA [id number] [address] Urinalysis complete panel (U )on 05-31-2025 Bacteria LM.HPF (Urine sed) [#/Area] None Seen Normal None Seen Comment on above: Order Comment: Speci men Type: URINE SPECIMENOrdering Facility: [facility] Address: [address] [place] [address] Performed By: #### 2 4356-8 ####[facility]PITALIA [id number] [address] [place] Bilirubin Ql (U) Negative Normal Negative Comment on above: Order Comment: Speci men Type: URINE SPECIMENOrdering Facility: [facility] Address: [address] [place] [address] Performed By: #### 2 4356-8 ####[facility]ATORYCLIA [id number] [address] [place] Clarity (Unsp spec) Clear Normal Clear Comment on above: Order Comment: Speci men Type: URINE SPECIMENOrdering Facility: [facility] Address: [address] [place] [address] Performed By: #### 2 4356-8 ####[facility]ATORYCLIA [id number] [address] [place] Color (U) Straw Normal Yellow Comment on above: Order Comment: Speci men Type: URINE SPECIMENOrdering Facility: [facility] Address: [address] [place] [address] Performed By: #### 2 4356-8 ####[facility]ATORYCLIA [id number] [place] [address] [place] Epithelial cells LM.HPF (Urine sed) [#/Area] Few Normal Comment on above: Order Comment: Speci men Type: URINE SPECIMENOrdering Facility: [facility] Address: [address] [place] [address] Performed By: #### 2 4356-8 ####[facility]ATORYCLIA [id number] [address] Glucose Test strip (U) [Mass/Vol] Negative Normal Negative Comment on above: Order Comment: Speci men Type: URINE SPECIMENOrdering Facility: [facility] Address: [address] [place] [address] Performed By: #### 2 4356-8 ####[facility]ATORYCLIA [id number] [address] STATES OF [facility] Hemoglobin Ql (U) 3+ Abnormal Negative Comment on above: Order Comment: Speci men Type: URINE SPECIMENOrdering Facility: [facility] Address: [address] [place] [address] Performed By: #### 2 4356-8 ####[facility]ATORYCLIA [id number] [place] [address] [place] Ketones Ql (U) Trace Abnormal Negative Comment on above: Order Comment: Speci men Type: URINE SPECIMENOrdering Facility: [facility] Address: [address] [place] [address] Performed By: #### 2 4356-8 ####[facility]ATORYCLIA [id number] [address] [place] Leukocyte esterase Test strip Ql (U) Trace Abnormal Negative Comment on above: Order Comment: Speci men Type: URINE SPECIMENOrdering Facility: [facility] Address: [address] [place] [address] Performed By: #### 2 4356-8 ####[facility]ATORYCLIA [id number] [place] [address] [place] Nitrite Ql (U) Negative Normal Negative Comment on above: Order Comment: Speci men Type: URINE SPECIMENOrdering Facility: [facility] Address: [address] [place] [address] Performed By: #### 2 4356-8 ####[facility]ATORYCLIA [id number] [address] [place] pH (U) 5.0 [pH] Normal 5.0-8.0 Comment on above: Order Comment: Speci men Type: URINE SPECIMENOrdering Facility: [facility] Address: [address] [place] [address] Performed By: #### 2 4356-8 ####[facility]ATORYCLIA [id number] [address] [place] Protein (U) [Mass/Vol] Negative Normal Negative [facility] Comment on above: Order Comment: Speci men Type: URINE SPECIMENOrdering Facility: [facility] Address: [address] [place] [address] Performed By: #### 2 4356-8 ####[facility] LABORATORYCLIA [id number] [place] [address] [place] RBC LM.HPF (Urine sed) [#/Area] /[HPF] Abnormal 0-3 /HPF Comment on above: Order Comment: Speci men Type: URINE SPECIMENOrdering Facility: [facility] Address: [address] [place] [address] Performed By: #### 2 4356-8 ####[facility]ORATORYCLIA [id number] [place] [id number] [place] Specific gravity (U) [Rel density] >1.030 High 1.005-1.030 Comment on above: Order Comment: Speci men Type: URINE SPECIMENOrdering Facility: [facility] Address: [address] [place] [address] Performed By: #### 2 4356-8 ####[facility]ATORYCLIA [id number] [place] [address] [place] Urobilinogen Ql (U) Negative Normal Negative Comment on above: Order Comment: Speci men Type: URINE SPECIMENOrdering Facility: [facility] Address: [address] [place] [address] Performed By: #### 2 4356-8 ####[facility] LABORATORYCLIA [id number] [address] [place] WBC LM.HPF (Urine sed) [#/Area] 11-25 /HPF Abnormal 0-5 /HPF Comment on above: Order Comment: Speci men Type: URINE SPECIMENOrdering Facility: [facility] Address: [address] [place] [address] Performed By: #### 2 4356-8 ####[facility] LABORATORYCLIA [id number] [address] [place] ANES POSTPROC EVALon 025 ANES POSTPROC EVAL Normal ANES PRE-OPon 05-29-2025 ANES PRE-OP Normal Bacteria Ur Culton Bacteria identified Cx Nom (U) CULTURE, URINE: No growth 2 days Normal Comment on above: Performed By: #### 6 30-4 ####[facility] LABORATORYCLIA [id number] [place] [address] [place] Basic metabolic 2000 panelon 05-29-2025 Anion gap [Moles/Vol] 12 mmol/L Normal 5-16 [facility] Comment on above: Order Comment: Speci men Type: BLOOD SPECIMENOrdering Facility: [facility] Address: [address] [place] [address] Performed By: #### 2 4321-2 ####[facility] LABORATORYCLIA [id number] [place] [id number] [place] Calcium [Mass/Vol] 9.8 mg/dL Normal 8.5-10.5 Comment on above: Order Comment: Speci men Type: BLOOD SPECIMENOrdering Facility: [facility] Address: [address] [place] [address] Performed By: #### 2 4321-2 ####[facility] LABORATORYCLIA [id number] [place] [id number] [place] Chloride [Moles/Vol] 103 mmol/L Normal 98-107 [facility] Comment on above: Order Comment: Speci men Type: BLOOD SPECIMENOrdering Facility: [facility] Address: [address] [place] [address] Performed By: #### 2 4321-2 ####[facility] LABORATORYCLIA [id number] [place] [address] [place] CO2 [Moles/Vol] 28 mmol/L Normal 21-32 Comment on above: Order Comment: Speci men Type: BLOOD SPECIMENOrdering Facility: [facility] Address: [address] [place] [address] Performed By: #### 2 4321-2 ####[facility] LABORATORYCLIA [id number] [place] [id number] [place] Creatinine [Mass/Vol] 1.02 mg/dL High 0.51-0.95 [facility] Comment on above: Order Comment: Speci men Type: BLOOD SPECIMENOrdering Facility: [facility] Address: [address] [place] [address] Result Comment: Jose ents receiving either N-Acetylcysteine (NAC) or Metamizole prior to venipuncture, may have falsely depressed results. Performed By: #### 2 4321-2 ####[facility] LABORATORYCLIA [id number] [place] [address] [place] eGFRcr SerPlBld CKD-EPI 2020 59 mL/min/1.73m??? Low >=60 Comment on above: Order Comment: Jack alberts Type: BLOOD SPECIMENOrdering Facility: [facility] Address: [address] [place] [address] Result Comment: Alecia mated Glomerular Filtration Rate (eGFR) is calculated using the 2020 CKD-EPI creatinine equation. This equation utilizes serum creatinine, sex, and age as parameters. The creatinine assay has traceable calibration to isotope dilution-mass spectrometry. Refer to KDIGO guidelines for clinical interpretation. In patients with unstable renal function, e.g. those with acute kidney injury, the eGFR may not accurately reflect actual GFR. Performed By: #### 2 4321-2 ####[facility] LABORATORYCLIA [id number] [place] [id number] [place] Glucose [Mass/Vol] 88 mg/dL Normal 70-100 Comment on above: Order Comment: Jack alberts Type: BLOOD SPECIMENOrdering Facility: [facility] Address: [address] [place] [address] Result Comment: The [place] Diabetes Association (ADA) provides guidance for cutoff values for fasting glucose and random glucose. The ADA defines fasting as no caloric intake for at least 8 hours. Fasting plasma glucose results between 100 to 125 mg/dL indicate increased risk for diabetes (prediabetes).Fasting plasma glucose results greater than or equal to 126 mg/dL meet the criteria for diagnosis of diabetes. In the absence of unequivocal hyperglycemia, results should be confirmed by repeat testing. In a patient with classic symptoms of hyperglycemia or hyperglycemic crisis, random plasma glucose results greater than or equal to 200 mg/dL meet the criteria for diagnosis of diabetes.Reference: Standards of Medical Care in Diabetes 2016, [place] [employer] Association. Diabetes Care. 2016.39(Suppl 1).Results may be falsely elevated after the administration of Sulfapyridine.Results may be falsely depressed after the administration of Sulfasalazine. Performed By: #### 2 4321-2 ####[facility] LABORATORYCLIA [id number] [place] [id number] [place] Potassium [Moles/Vol] 4.1 mmol/L Normal 3.5-5.1 [facility] Comment on above: Order Comment: Speci men Type: BLOOD SPECIMENOrdering Facility: [facility] Address: [address] [place] [address] Performed By: #### 2 4321-2 ####[facility] LABORATORYCLIA [id number] [place] [address] [place] Sodium [Moles/Vol] 143 mmol/L Normal 136-145 Comment on above: Order Comment: Speci men Type: BLOOD SPECIMENOrdering Facility: [facility] Address: [address] [place] [address] Performed By: #### 2 4321-2 ####[facility] LABORATORYCLIA [id number] [address] [place] Urea nitrogen [Mass/Vol] 16 mg/dL Normal 7-26 Comment on above: Order Comment: Speci men Type: BLOOD SPECIMENOrdering Facility: [facility] Address: [address] [place] [address] Performed By: #### 2 4321-2 ####[facility] LABORATORYCLIA [id number] [address] [place] CBC panel Auto (Bld)on 05-29 Erythrocyte distribution width (RBC) [Ratio] 14.8 % Normal 11.5-15.0 Comment on above: Order Comment: Speci men Type: BLOOD SPECIMENOrdering Facility: [facility] Address: [address] [place] [address] Performed By: #### 5 8410-2 ####[facility] LABORATORYCLIA [id number] [address] [place] Hematocrit (Bld) [Volume fraction] 40.5 % Normal 36.0-46.0 Comment on above: Order Comment: Speci men Type: BLOOD SPECIMENOrdering Facility: [facility] Address: [address] [place] [address] Performed By: #### 5 8410-2 ####[facility] LABORATORYCLIA [id number] [address] [place] Hemoglobin (Bld) [Mass/Vol] 12.8 g/dL Normal 11.5-15.5 Comment on above: Order Comment: Speci men Type: BLOOD SPECIMENOrdering Facility: [facility] Address: [address] [place] [address] Performed By: #### 5 8410-2 ####[facility] LABORATORYCLIA [id number] [address] MCH (RBC) [Entitic mass] 27.9 pg Normal 26.0-34.0 Comment on above: Order Comment: Speci men Type: BLOOD SPECIMENOrdering Facility: [facility] Address: [address] [place] [address] Performed By: #### 5 8410-2 ####[facility] LABORATORYCLIA [id number] [address] [place] MCHC (RBC) [Mass/Vol] 31.6 g/dL Normal 30.5-36.0 [facility] Comment on above: Order Comment: Speci men Type: BLOOD SPECIMENOrdering Facility: [facility] Address: [address] [place] [address] Performed By: #### 5 8410-2 ####[facility] LABORATORYCLIA [id number] [address] [place] MCV (RBC) [Entitic vol] 88.4 fL Normal 80.0-100.0 Comment on above: Order Comment: Speci men Type: BLOOD SPECIMENOrdering Facility: [facility] Address: [address] [place] [address] Performed By: #### 5 8410-2 ####[facility] LABORATORYCLIA [id number] [address] Nucleated RBC (Bld) [#/Vol] 10*3/uL Normal <0.01 Comment on above: Order Comment: Speci men Type: BLOOD SPECIMENOrdering Facility: [facility] Address: [address] [place] [address] Performed By: #### 5 8410-2 ####[facility] LABORATORYCLIA [id number] [place] [id number] [place] Platelet mean volume (Bld) [Entitic vol] 9.4 fL Normal 9.0-12.7 Comment on above: Order Comment: Speci men Type: BLOOD SPECIMENOrdering Facility: [facility] Address: [address] [place] [address] Performed By: #### 5 8410-2 ####[facility] LABORATORYCLIA [id number] [place] [id number] [facility] [place] Platelets (Bld) [#/Vol] 419 10*3/uL High 150-400 Comment on above: Order Comment: Speci men Type: BLOOD SPECIMENOrdering Facility: [facility] Address: [address] [place] [address] Performed By: #### 5 8410-2 ####[facility] LABORATORYCLIA [id number] [place] [address] [place] RBC (Bld) [#/Vol] 4.58 10*6/uL Normal 3.90-5.20 Comment on above: Order Comment: Speci men Type: BLOOD SPECIMENOrdering Facility: [facility] Address: [address] [place] [address] Performed By: #### 5 8410-2 ####[facility] LABORATORYCLIA [id number] [place] [address] [place] WBC (Bld) [#/Vol] 10.09 10*3/uL Normal 3.70-11.00 [facility] Comment on above: Order Comment: Speci men Type: BLOOD SPECIMENOrdering Facility: [facility] Address: [address] [place] [address] Performed By: #### 5 8410-2 ####[facility] LABORATORYCLIA [id number] [place] [id number] [place] CNPNon 05-29-2025 CNPN Normal HISTORY PHYSICALon HISTORY PHYSICAL Normal NURSING PROGon 05-29-2025 NURSING PROG Normal NURSING PROG Normal NURSING PROG Normal OPERATIVE NOon 05-29-2025 OPERATIVE NO Normal PT panel Coag (PPP)on 2024 INR Coag (PPP) [Relative time] 1.1 {INR} Normal 0.9-1.3 Comment on above: Order Comment: Speci men Type: BLOOD SPECIMENOrdering Facility: [facility] Address: [address] [place] [address] Result Comment: Dennise min K Antagonist (VKA) Therapeutic Range: INR 2 to 3 (Target INR of 2.5)Note: For patients treated with VKA drugs, such as warfarin, the [place] [employer] 2012 Guideline recommends a therapeutic INR range of 2 to 3 (target INR of 2.5). This recommendation includes high-risk patients with antiphospholipid syndrome with previous arterial or venous thromboembolism, current-generation mechanical or bioprosthetic aortic heart valve replacement.Note: Patients with mechanical aortic valve replacement and additional risk factors for thromboembolic events (atrial fibrillation, previous thromboembolism, LV dysfunction, hypercoagulable conditions) or an older generation mechanical AVR (i.e., ball in-Cage) or any mechanical MVR should have a INR therapeutic range of 2.5 to 3.5 (target INR of 3).Tracy GH, et al. Chest 2012, 141:7S-47SNishimsurinder RA, et al. [facility] 2017, 70: 252-289 Performed By: #### 3 4528-0 ####[facility] LABORATORYCLIA [id number] [address] [place] PT Coag (PPP) [Time] 12.3 s Normal 9.7-13.0 [facility] Comment on above: Order Comment: Speci men Type: BLOOD SPECIMENOrdering Facility: [facility] Address: [address] [place] [address] Performed By: #### 3 4528-0 ####[facility] LABORATORYCLIA [id number] [place] [address] [place] CNPNon 05-26-[address] FLANK WO IVCONon 05-26-[address] FLANK WO IVCON * * *Final Report* * * DATE OF EXAM: May 26 2025 11:57AM [facility] 0529 - CT FLANK WO IVCON / PROCEDURE REASON: Nephrolithiasis * * * * Physician Interpretation * * * * EXAMINATION: CT ABDOMEN AND PELVIS WITHOUT IV CONTRAST (Renal stone protocol) CLINICAL HISTORY: Hydronephrosis. Hematuria. History of kidney stones. History of colon carcinoma, endometrial carcinoma, cervical carcinoma. Radiation. Adhesions TECHNIQUE: Non-contrast imaging of the abdomen and pelvis was performed through the urinary tract. Study performed without intravenous or oral contrast to evaluate for urinary tract calculus. MQ: [id number] Contrast: IV contrast: None Oral contrast: None CT Radiation dose: Integrated dose-length product (DLP) for this visit = 446 mGy*cm. CT Dose Reduction Employed: Automated exposure control(AEC) and iterative recon COMPARISON: Ultrasound 05/03/2025. CT 10/23/2024. RESULT: Limitations: Unenhanced imaging is limited for the evaluation of some renal and other intra-abdominal and pelvic pathology. Urinary Tract: Right kidney and ureter: 3 nonobstructing stones measure up to 0.7 cm. No hydronephrosis. No finding to suggest solid mass in the unenhanced kidney. Left kidney and ureter: 0.7 x 0.9 cm obstructing stone in the distal left ureter. Just distal to this is another ureteral stone of 0.5 cm Moderate to severe upstream hydroureteronephrosis. No finding to suggest solid mass in the unenhanced kidney. Bladder: Decompressed. Punctate air within it. Abdomen and Pelvis: Liver: Unremarkable. Biliary: No biliary dilatation Spleen: No splenomegaly. Pancreas: Unremarkable. Adrenals: Low-density 1.5 cm right adrenal nodule is stable. This is consistent with lipid rich adenoma. Left adrenal is normal GI Tract: No bowel dilation. Prior hemicolectomy. Significant retained fecal material Lymph Nodes: No lymphadenopathy. Mesentery/peritoneum: No ascites. Vasculature: Arterial atherosclerotic disease without aneurysm. Pelvis: No mass or ascites. Bones and Soft Tissues: No acute abnormality. Stable mild superior wedge deformity of L4 Lower thorax: Unremarkable. Localizer images: No additional findings. IMPRESSION: Obstructing stones in the distal left ureter as described. Moderate/severe left hydronephrosis Urinary bladder is nearly empty. Punctate air within it. Infection cannot be excluded. Right nephrolithiasis ACTIONABLE RESULT: FOLLOW-UP Acuity: Actionable Findings: Kidneys/Ureters/Bladder Routing Code: GU_1 Recommendation: SUBSPECIALTY CONSULTATION SUGGESTED Time Frame: At the discretion of the clinical team. COMMUNICATION: Results will be communicated with the ordering provider via Webspy staff message or phone message by [facility] within 2 business days of report finalization. --END OF FINDING-- Endoscopy Nurse: PSCB Transcribe Date/Time: May 26 2025 3:14P Dictated by : CORTES OCAMPO MD This examination was interpreted and the report reviewed and electronically signed by: CORTES OCAMPO MD on May 26 2025 3:28PM EST [id number] ACTIONABLE Invalid Interpretation Code [facility] CNOVon 05-23-2025 CNOV Normal POLYSOMNOGRAM (PSG)/HOME SLE EP APNEA TEST (HSAT)on 05-22-2025 POLYSOMNOGRAM (PSG)/HOME SLEEP APNEA TEST (HSAT) [facility] ??? [address] [place] [address] ; PSG Study Report Name: ALIYAH LEACH Date of Study: 05/22/2025 CCF#: [id number] Age: 70 (: 1955) ESS: 03/16 Neck Circ. (cm): 40.0 Height (cm): 162.6 Weight (kg): 106.1 BMI: 40.1 Referring Provider: CONSTANCE RODRIGUEZ Mailcode: Sleep history: The patient is a 70 year old female with a history of waking up with dry mouth or sore throat, multiple awakenings from sleep, fatigue, and experiencing hallucinations while falling asleep or waking up. The patient endorses being a habitual supine sleeper. Pertinent past medical history: Atrial fibrillation, Class III obesity, Depression, Diabetes mellitus type II, Diabetic neuropathy, Hyperlipidemia, Hypertension, Hypothyroidism Pertinent medications: Trulicity, Prozac, Synthroid, Losartan, Metformin, Pravastatin Sleep procedure: PSG w/CPAP or Bilevel PAP 4 or > addtl matias PC (19725) Procedure: The study was attended continuously by a cardiac cath lab radiology technologist. The monitored parameters included: left (E1-M2) and right (E2-M1) EOG, frontal (F3-M2 and F4-M1), central (C3-M2 and C4-M1) and occipital (O1-M2 and O2-M1) EEG, mental and submental EMG, left and right anterior tibialis, left and right flexor digitorum superficialis EMG, single ECG waveform, snoring, continuous airflow with, thermistor, nasal pressure transducer, PAP interface, chest and abdominal effort, oxygen saturation, ETCO2, TcpCO2, and body position via video monitoring. Hypopnea definition: The peak signal excursions drop by >= 30% of pre-event baseline using nasal pressure (diagnostic study), PAP device flow (titration study) or an alternative hypopnea sensor (diagnostic study). The duration of the >= 30% drop in signal excursion is >= 10 seconds. There is a greater than or equal to 4% oxygen desaturation from pre-event baseline. Respiratory Effort Related Arousal (RERA) definition: 10 seconds characterized by increasing respiratory effort or by flattening of the nasal pressure or PAP flow waveform leading to arousal from sleep when the sequence of breaths does not meet criteria for an apnea or hypopnea. Respiratory Disturbance Index (RDI) definition: RDI = (#apneas + #hypopneas + #RERAs) x 60 / TST. If AHI is 0.0, then RDI = RERA index. SLEEP ARCHITECTURE: The study started at 22:46:05 and ended at 05:06:41. Total sleep time (TST) was 283 minutes resulting in a sleep efficiency of 75.1% (total recording time (TRT) = 377 m). There were 66 awakenings with a total time awake after sleep onset of 70.5 minutes. The sleep latency was 23.5 minutes and the REM latency was N/A. The patient spent 100.0% of sleep time in the supine position. The sleep stage percentages were 22.9% stage N1, 77.1% stage N2, 0.0% stage N3 and 0.0% REM sleep. There were 308 arousals, resulting in an arousal index of 65.2. There were 210 stage shifts. RESPIRATORY DATA: Snoring was noted. There were 206 respiratory events consisting of 92 hypopneas and 114 RERAs. The patient spent 100.0% of baseline sleep time in the supine position. The apnea-hypopnea index (AHI) was 19.5, and the respiratory disturbance index (RDI) was 43.6. The supine AHI was 19.5. The non-REM AHI was 19.5 and the arousal index was 55.4. The mean oxygen saturation was 95.0%, with a minimum oxygen saturation of 85.0%. The patient spent 0.4% (1.2 min) of sleep time with an oxygen saturation below 90% and 0.2% (0.5 min) of sleep time with an oxygen saturation at or below 88%. The wake supine end-tidal CO2 (ETCO2) value was 40 mmHg. The maximum ETCO2 was 47 mmHg. The wake supine transcutaneous pCO2 (TcpCO2) value was 41 mmHg. The maximum TcpCO2 during sleep was 43 mmHg. Christian-Byrd/Periodic Breathing was not present. Supplemental oxygen was not administered. REM-Time REM AHI NREM-Time NREM AHI Total-Time Total RDI Total AHI Supine 0.0 m -- 283.5 m 19.5 283.5 m 43.6 19.5 Off-Supine 0.0 m -- 0.0 m -- 0.0 m -- -- Total 0.0 m -- 283.5 m 19.5 283.5 m 43.6 19.5 MOVEMENT DATA: REM SLEEP WITHOUT ATONIA There were a total of 0 epochs of REM sleep scored in accordance with Kee Burr. Neurology. 1992 Marcel; 42(7):1371-4. EMG monitoring of the flexor digitorum superficialis (FDS) was performed. BEHAVIORAL CHANGES There were no movements, facial expressions or vocalizations suggestive of dream enactment behavior or parasomnia activity captured during the recording. On the morning after questionnaire, the patient did not endorse having dream enactment behavior/sleep paralysis/sleep related hallucinations/seizures/d ream recall. LIMB/OTHER MOVEMENTS There were 0 periodic limb movements during sleep. ECG DATA: The average heart rate during sleep was 69 beats per minute, with a range of 62 to 81. During wake, the heart rate ranged from 62 to 84 beats per minute. The following arrhythmias were ob (more content not included)... Normal [facility] US KIDNEY/BLADDERon 05-03-20 25 US KIDNEY/BLADDER * * *Final Report* * * DATE OF EXAM: May 03 2025 1:46PM [id number] - US KIDNEY/BLADDER / PROCEDURE REASON: Right ureteral calculus * * * * Physician Interpretation * * * * EXAMINATION: RENAL ULTRASOUND CLINICAL HISTORY: Right ureteral calculus TECHNIQUE: Sonography of the kidneys and urinary bladder was performed. Images were obtained and stored in a permanent archive. MQ: UR_1 COMPARISON: Outside institution CT abdomen/pelvis dated 10/23/2024 RESULT: Right Kidney: -Renal length: 13.4 cm -Parenchyma: Normal parenchymal echogenicity. Normal parenchymal thickness. -Collecting system: No hydronephrosis. Collecting system dilation seen in October 2024 has resolved -Calculus: 1 cm shadowing calculus noted at the interpolar region. A 5 mm calculus is noted at the upper pole. -Lesion: None. Left Kidney: -Renal length: 11.5 cm -Parenchyma: Normal parenchymal echogenicity. Normal parenchymal thickness. -Collecting system: New moderate left hydronephrosis -Calculus: 1.2 cm shadowing calculus at the lower pole. -Lesion: None. Bladder: The urinary bladder was not visualized, it was presumably empty at the time of the scan. IMPRESSION: 1. New moderate left hydronephrosis compared to a CT performed in October 2024. Repeat CT evaluation could be considered to assess for an obstructing left ureteral calculus. 2. Previously noted right hydronephrosis has resolved. 3. Bilateral nephrolithiasis. Endoscopy Nurse: PSCB Transcribe Date/Time: May 08 2025 4:56P Dictated by : CELESTINO OROZCO MD This examination was interpreted and the report reviewed and electronically signed by: CELESTINO OROZCO MD on May 08 2025 5:03PM EST [id number] Normal [facility] XR ABDOMEN 1V SUPINEon 05-03 XR ABDOMEN 1V SUPINE * * *Final Report* * * DATE OF EXAM: May 03 2025 1:36PM [id number] - XR ABDOMEN 1V SUPINE / PROCEDURE REASON: Right ureteral calculus * * * * Physician Interpretation * * * * KUB HISTORY: Nephrolithiasis Prior study: Outside CT 10/23/2024 FINDINGS: Evaluation for nephrolithiasis limited by bowel gas and feces overlying the kidneys. There is an ovoid 9 x 5 mm density overlying the expected region of the lower pole of the LEFT kidney. No abnormal calcification overlying the RIGHT kidney. No focal bony lesion. IMPRESSION: Possible 5 x 9 mm radiopaque calculus lower pole kidney. Evaluation for nephrolithiasis limited by bowel gas and feces. Endoscopy Nurse: PSCB Transcribe Date/Time: May 12 2025 11:31A Dictated by : LAURA GONZALEZ MD This examination was interpreted and the report reviewed and electronically signed by: LAURA GONZALEZ MD on May 12 2025 11:39AM EST [id number] Normal [facility] ANES POSTPROC EVALon 025 ANES POSTPROC EVAL HNO ID: [id number] Author: JENN KENNEY MD Service: ? Author Type: Anesthesiologist Type: Anesthesia Postprocedure Evaluation Filed: 04/19/2025 12:06 Note Text: POST ANESTHESIA EVALUATION NOTE : 1955 Procedure Summary Date: 04/19/25 Room / Location: [facility] Endoscopy Anesthesia Start: 819 Anesthesia Stop: 905 Procedure: COLONOSCOPY SCREENING Diagnosis: Personal history of colon cancer (Change in bowel habits) Scheduled Providers: Kiersten Diehl MD; Jenn Kenney MD; Radhames Cody APRN.BIOINFORMATICIST Responsible Provider: Jenn Kenney MD Anesthesia Type: MAC ASA Status: 3 Anesthesia Type: MAC Last Vitals Vitals Value Taken Time BP 134/64 04/19/25 09:21 Temp 04/19/25 12:04 Pulse 69 04/19/25 09:21 Resp 18 04/19/25 09:21 SpO2 95 % 04/19/25 09:21 Post Anesthesia Patient Status Patient Evaluation: bedside. Anticipated Disposition: phase 2 then home. Neurological Status: aware and responsive. Pulmonary Status: breathing comfortably on room air Airway Control: returned to baseline unsupported. Cardiovascular Status: stable. Pain Management: clinically adequate Postoperative Hydration: acceptable. Intraoperative Events: no significant anesthesia events Post Operative Nausea/Vomiting Status: no significant post operative nausea or vomiting Recommendation: continue current plan of care. Anesthesia Observations No Documentation SIGNATURE: Jenn Kenney MD PATIENT NAME: Aliyah Leach DATE: April 19, 2025 TIME: 12:04 PM CSN: [id number] Normal [facility] ANES PRE-OPon 04-19-2025 ANES PRE-OP HNO ID: [id number] Author: JENN KENNEY MD Service: ? Author Type: Anesthesiologist Type: Anesthesia Preprocedure Evaluation Filed: 04/19/2025 08:14 Note Text: ANESTHESIOLOGY DAY OF SURGERY NOTE : 1955 Procedure Information Date/Time: 04/19/25 0830 Scheduled providers: Kiersten Diehl MD; Jenn Kenney MD; Radhames Cody APRN.BIOINFORMATICIST Procedure: COLONOSCOPY SCREENING Location: [facility] End[facility] Estimated body mass index is 40.15 kg/m? as calculated from the following: Height as of 03/17/25: 162.6 cm (5' 4.02). Weight as of 04/04/25: 106.1 kg (234 lb). Most recent hematocrit and potassium results: Hematocrit 38.4 03/01/2025 Potassium 4.7 03/01/2025 Relevant Problems CARDIO (+) Atrial fibrillation with RVR (HCC) (+) Ectatic thoracic aorta (+) Hypertension (+) Idiopathic dilatation of pulmonary artery (HCC) ENDO (+) Hypothyroidism -RENAL (+) CHAPITO (acute kidney injury) (+) Kidney stone on left side (+) Renal atrophy, left I - PHYSICAL EVALUATION AIRWAY Patient intubated: No. Tracheostomy tube not present Mallampati: II. TM distance: >3 FB. Neck ROM: full ROM without neurological symptoms. Mouth opening: <2 FB. Short neck: no. Thick neck: no DENTAL Dental findings: teeth intact. II - ANESTHESIA PLAN ASA Score: 3 Anesthetic Plan: MAC The patient is not a current smoker. NPO Status: adequate Monitoring Plan Monitoring plan: standard ASA. Post Procedure Analgesic Plan Postoperative analgesic plan: multimodal analgesia. Informed Consent Anesthetic risks, benefits, alternatives, personnel and consent discussed: yes. Patient / Responsible Constitution Party agrees to proceed: yes Patient / Surrogate agrees to blood products: Yes DNR status not reviewed with patient and/or family prior to surgery. Significant changes in the patient condition since the History and Physical, not otherwise documented in primary service progress note: no. Potential Anesthesia issues that may suggest increased risk of complications or contraindication to planned procedure: none. Vitals Value Taken Time BP 145/71 04/19/25 07:30 Pulse Resp 18 04/19/25 07:30 Temp 36.1 ?C (97 ?F) 04/19/25 07:30 SpO2 95 % 04/19/25 07:30 Outpatient Medications as of 04/19/2025 Medication Sig levothyroxine (SYNTHROID) 112 mcg tablet Take 1 tablet by mouth once daily. magnesium oxide (MAG-OX) 400 mg (241.3 mg magnesium) tablet Take 1 tablet by mouth two times a day. pravastatin (PRAVACHOL) 40 mg tablet Take 1 tablet by mouth daily at bedtime. FLUoxetine (PROZAC) 40 mg capsule Take 1 capsule by mouth once daily. metFORMIN (GLUCOPHAGE) 1,000 mg tablet Take 1 tablet by mouth two times a day with meals. Incontinence Pad, Liner, Disp (POISE PADS) pads 1 pad five times a day. losartan (COZAAR) 25 mg tablet Take 1 tablet by mouth two times a day. vit C,V-Gc-kbdzs-lutein-zeaxa n (PRESERVISION AREDS-2) 250-90-40-1 mg Take 1 capsule by mouth twice daily with meals. CYANOCOBALAMIN/COBAMAMIDE (B12 SUBLINGUAL) Dissolve 1 tablet under the tongue once daily. Last dose 12/07/24 for OR 12/12/24 Cholecalciferol, Vitamin D3, 125 mcg (5,000 unit) cap Take 125 Units by mouth once daily. Last dose 12/07/24 for OR 12/12/24 blood sugar diagnostic (ACCU-CHEK ROBIN) test strip Use as instructed Blood-Glucose Meter (ACCU-CHEK ROBIN PLUS METER) misc 1 Each once daily. multivitamin ORAL tablet Take 1 tablet by mouth once daily. Last dose 12/07/24 for OR 12/12/24 dulaglutide (TRULICITY) 1.5 mg/0.5 mL pen injector Inject 1.5 mg subcutaneously one time a week. Inject once per week. Discard Pen After Lancets (ACCU-CHEK SOFTCLIX LANCETS) lancets Once daily. 250.40 Facility-Administered Medications as of 04/19/2025 Medication Dose Route Frequency lidocaine (PF) 10 mg/mL (1 %) 1-2 mg injection (XYLOCAINE) 0.1-0.2 mL INTRADERMAL PRN lactated ringers iv infusion 30 mL/hr INTRAVENOUS CONTINUOUS I have interviewed and examined the patient. I have reviewed the medical record and/or the pre-anesthesia evaluation, pertinent labs, and test results. This contains updated information obtained within 48 hours of Surgery/Procedure. SIGNATURE: Jenn Kenney MD PATIENT NAME: Aliyah Leach DATE: April 19, 2025 TIME: 8:14 AM CSN: [id number] Normal [facility] Colonoscopyon 04-19-2025 Colonoscopy [facility] Gastrointestinal Endoscopy Patient Name: Aliyah Leach Procedure Date: 04/19/2025 8:08 AM Date of : 1955 Admit Type: Outpatient Age: 70 Room: [facility] Gender: Female Note Status: Finalized Attending MD: Kiersten Diehl MD, [id number] Procedure: Colonoscopy Indications: Change in bowel habits Providers: Kiersten Diehl MD Patient Profile: Refer to note in patient chart for documentation of history and physical. Last Colonoscopy: 2018. Referring Physician: Jacque Reveles (pa) (Referring MD) Medicines: See the Anesthesia note for documentation of the administered medications Complications: No immediate complications. Requesting Provider: Procedure: Pre-Anesthesia Assessment: - Monitored anesthesia care under the supervision of a BIOINFORMATICIST was determined to be medically necessary for this procedure based on review of the patient's medical history, medications, and prior anesthesia history. After I obtained informed consent, the scope was passed under direct vision. Throughout the procedure, the patient's blood pressure, pulse, and oxygen saturations were monitored continuously. The Colonoscope was introduced through the anus and advanced to the cecum, identified by the appendiceal orifice, IC valve and transillumination. The colonoscopy was performed without difficulty. The patient tolerated the procedure well. The quality of the bowel preparation was adequate to identify polyps greater than 5 mm in size. The rectum was photographed. Scope Withdrawal Time: 0 hours 13 minutes 45 seconds Moderate Sedation: MAC anesthesia was administered by the anesthesia team. Findings: The perianal and digital rectal examinations were normal. Non-bleeding external and internal hemorrhoids were found also prominent anal papillae. A 3 to 5 mm polyp was found in the cecum. The polyp was sessile. The polyp was removed with a cold snare. Resection and retrieval were complete. Verification of patient identification for the specimen was done by the nurse. Estimated blood loss was minimal. A 2 to 3 mm polyp was found in the rectum. The polyp was sessile. The polyp was removed with a cold biopsy forceps. Resection and retrieval were complete. Verification of patient identification for the specimen was done by the nurse. Estimated blood loss was minimal. Biopsies for histology were taken with a cold forceps from the entire colon for evaluation of microscopic colitis. Impression: - Non-bleeding external and internal hemorrhoids. - One 3 to 5 mm polyp in the cecum, removed with a cold snare. Resected and retrieved. - One 2 to 3 mm polyp in the rectum, removed with a cold biopsy forceps. Resected and retrieved. - Biopsies were taken with a cold forceps from the entire colon for evaluation of microscopic colitis. Recommendation: - Discharge patient to home (ambulatory). - Resume previous diet. - Continue present medications. - Await pathology results. - Return to GI clinic at the next available appointment. - Patient has a contact number available for emergencies. The signs and symptoms of potential delayed complications were discussed with the patient. Return to normal activities tomorrow. Written discharge instructions were provided to the patient. - Repeat colonoscopy is recommended for surveillance. The colonoscopy date will be determined based on pathology results from today's exam and current guidelines. Procedure Code(s): --- Professional --- 46814, Colonoscopy, flexible; with removal of tumor(s), polyp(s), or other lesion(s) by snare technique 26621, 59, Colonoscopy, flexible; with biopsy, single or multiple Diagnosis Code(s): --- Professional --- R19.4, Change in bowel habit D12.8, Benign neoplasm of rectum D12.0, Benign neoplasm of cecum K64.8, Other hemorrhoids CPT copyright 2020 [employer]. All rights reserved. The codes documented in this report are preliminary and upon potato chip sorter review may be revised to meet current compliance requirements. Attending Participation: I personally performed the entire procedure. Scope In: Scope Out: 8:52:32 AM MD Kiersten Whitten MD 04/19/2025 8:57:11 AM This report has been signed electronically by Kiersten Diehl MD Number of Addenda: 0 Note Initiated On: 04/19/2025 8:08 AM Estimated Blood Loss: Estimated blood loss was minimal. Normal [facility] Colonoscopy Study observatio non 04-19-2025 [facility] Gastrointestinal Endoscopy Patient Name: Aliyah Leach Procedure Date: 04/19/2025 8:08 AM Date of : 1955 Admit Type: Outpatient Age: 70 Room: [facility] Gender: Female Note Status: Finalized Attending MD: Kiersten Diehl MD, [id number] Procedure: Colonoscopy Indications: Change in bowel habits Providers: Kiersten Diehl MD Patient Profile: Refer to note in patient chart for documentation of history and physical. Last Colonoscopy: 2018. Referring Physician: Jacque Reveles (pa) (Referring MD) Medicines: See the Anesthesia note for documentation of the administered medications Complications: No immediate complications. Requesting Provider: Procedure: Pre-Anesthesia Assessment: - Monitored anesthesia care under the supervision of a BIOINFORMATICIST was determined to be medically necessary for this procedure based on review of the patient's medical history, medications, and prior anesthesia history. After I obtained informed consent, the scope was passed under direct vision. Throughout the procedure, the patient's blood pressure, pulse, and oxygen saturations were monitored continuously. The Colonoscope was introduced through the anus and advanced to the cecum, identified by the appendiceal orifice, IC valve and transillumination. The colonoscopy was performed without difficulty. The patient tolerated the procedure well. The quality of the bowel preparation was adequate to identify polyps greater than 5 mm in size. The rectum was photographed. Scope Withdrawal Time: 0 hours 13 minutes 45 seconds Moderate Sedation: MAC anesthesia was administered by the anesthesia team. Findings: The perianal and digital rectal examinations were normal. Non-bleeding external and internal hemorrhoids were found also prominent anal papillae. A 3 to 5 mm polyp was found in the cecum. The polyp was sessile. The polyp was removed with a cold snare. Resection and retrieval were complete. Verification of patient identification for the specimen was done by the nurse. Estimated blood loss was minimal. A 2 to 3 mm polyp was found in the rectum. The polyp was sessile. The polyp was removed with a cold biopsy forceps. Resection and retrieval were complete. Verification of patient identification for the specimen was done by the nurse. Estimated blood loss was minimal. Biopsies for histology were taken with a cold forceps from the entire colon for evaluation of microscopic colitis. Impression: - Non-bleeding external and internal hemorrhoids. - One 3 to 5 mm polyp in the cecum, removed with a cold snare. Resected and retrieved. - One 2 to 3 mm polyp in the rectum, removed with a cold biopsy forceps. Resected and retrieved. - Biopsies were taken with a cold forceps from the entire colon for evaluation of microscopic colitis. Recommendation: - Discharge patient to home (ambulatory). - Resume previous diet. - Continue present medications. - Await pathology results. - Return to GI clinic at the next available appointment. - Patient has a contact number available for emergencies. The signs and symptoms of potential delayed complications were discussed with the patient. Return to normal activities tomorrow. Written discharge instructions were provided to the patient. - Repeat colonoscopy is recommended for surveillance. The colonoscopy date will be determined based on pathology results from today's exam and current guidelines. Procedure Code(s): --- Professional --- 87227, Colonoscopy, flexible; with removal of tumor(s), polyp(s), or other lesion(s) by snare technique 90642, 59, Colonoscopy, flexible; with biopsy, single or multiple Diagnosis Code(s): --- Professional --- R19.4Ethan (more content not included)... [employer] [facility] Radiology Study observation (narrative) [facility] GLUCOSE, BLOOD (POC)on 04-19 Glucose [Mass/Vol] 139 mg/dL Abnormal 74 - 99 mg/dL [facility] Comment on above: Location:[facility], [address] [place] [address], [facility] The Accu-Chek Inform II glucose meter has not been approved for testing on patients receiving intensive medical intervention or therapy and results from this point of care glucose test should not be used for patient management decisions in these cases. Inaccurate results may also occur from other interfering factors, such as N-acetylcysteine (blood concentrations of greater than 5mg/dL), galactose, extremes of hematocrit (<10 or >65), or high doses of ascorbic acid (vitamin C) greater than 3mg/dL. Consider alternate testing mechanisms (e.g. core lab, blood gas instrument) in the above situations. Interpretation and review of laboratory results Abnormal [facility] HISTORY PHYSICALon HISTORY PHYSICAL HNO ID: [id number] Author: KIERSTEN DIEHL MD Service: General Surgery Author Type: Physician Type: H&P Filed: 04/19/2025 07:22 Note Text: HISTORY AND PHYSICAL Aliyah Leach 1955 REFERRING PHYSICIAN: Jacque Reveles PA-C CHIEF COMPLAINT: No chief complaint on file. HPI: The patient is a 70 year old female here for colonoscopy. Last colonoscopy 2018 - hyperplastic polyp Fecal urgency after eating. PAST MEDICAL HISTORY Diagnosis Date Ambulates with cane Atrial fibrillation (HCC) 2023 Dr. Ring. Diagnosed when admitted for kidney stone. 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 Osborn. Has had kidney stones on right and left. 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, S/P EBRT and HDR brachytherapy Obesity, unspecified Pressure sore on buttocks 11/2024 Pt treating on own with AANDD Psoriasis Radiation 2005 for Cervical Cancer PAST SURGICAL HISTORY Procedure Laterality Date ARTHRP KNE CONDYLEANDPLATU MEDIALANDLAT COMPARTMENTS 2010 left knee ARTHRP KNE CONDYLEANDPLATU MEDIALANDLAT COMPARTMENTS 01/01/2015 Right knee BIOPSY BREAST OPEN INCISIONAL Bx of breast, incisional CHOLECYSTECTOMY 1987 Open cholecystectomy COLECTOMY PARTIAL W/ANASTOMOSIS 2000 Hemicolectomy COLONOSCOPY 10/2018 COLONOSCOPY FLX DX W/COLLJ SPEC WHEN PFRMD Colonoscopy COLONOSCOPY FLX DX W/COLLJ SPEC WHEN PFRMD 09/09/2005 Colonoscopy COLONOSCOPY FLX DX W/COLLJ SPEC WHEN PFRMD 11/15/2008 Colonoscopy COLONOSCOPY FLX DX W/COLLJ SPEC WHEN PFRMD 02/11/12, 03/2015 Repeat in 3 years (03/2018) COLONOSCOPY SCREENING 02/05/2022 DILATION AND CURETTAGE DXAND/THER NONOBSTETRIC 05/29/2011 Dilation AND curettage IR NEPHROSTOMY TUBE INSERT RIGHT Right 10/23/2024 IR [facility] PAST SURGICAL HISTORY OF Rt port placement REMV CATARACT EXTRACAP,INSERT LENS Left 10/2021 REPAIR FIRST ABDOMINAL WALL HERNIA 2000 Hernia repair, incisional TOT ABD HYST W/PARAORTIC AND PELVIC LYMPH NODE MARK 06/19/2011 Exploratory laparotomy with extensive lysis of adhesions, total abdominal hysterectomy, bilateral salpingo- oophorectomy, cystoscopy, and omentectomy. Current Outpatient Medications Medication Sig levothyroxine (SYNTHROID) 112 mcg tablet Take 1 tablet by mouth once daily. magnesium oxide (MAG-OX) 400 mg (241.3 mg magnesium) tablet Take 1 tablet by mouth two times a day. pravastatin (PRAVACHOL) 40 mg tablet Take 1 tablet by mouth daily at bedtime. FLUoxetine (PROZAC) 40 mg capsule Take 1 capsule by mouth once daily. metFORMIN (GLUCOPHAGE) 1,000 mg tablet Take 1 tablet by mouth two times a day with meals. Incontinence Pad, Liner, Disp (POISE PADS) pads 1 pad five times a day. losartan (COZAAR) 25 mg tablet Take 1 tablet by mouth two times a day. CYANOCOBALAMIN/COBAMAMIDE (B12 SUBLINGUAL) Dissolve 1 tablet under the tongue once daily. Last dose 12/07/24 for OR 12/12/24 Cholecalciferol, Vitamin D3, 125 mcg (5,000 unit) cap Take 125 Units by mouth once daily. Last dose 12/07/24 for OR 12/12/24 blood sugar diagnostic (ACCU-CHEK ROBIN) test strip Use as instructed Blood-Glucose Meter (ACCU-CHEK ROBIN PLUS METER) misc 1 Each once daily. multivitamin ORAL tablet Take 1 tablet by mouth once daily. Last dose 12/07/24 for OR 12/12/24 dulaglutide (TRULICITY) 1.5 mg/0.5 mL pen injector Inject 1.5 mg subcutaneously one time a week. Inject once per week. Discard Pen After vit C,O-Kf-ggfnv-lutein-zeaxa n (PRESERVISION AREDS-2) 250-90-40-1 mg Take 1 capsule by mouth twice daily with meals. Lancets (ACCU-CHEK SOFTCLIX LANCETS) lancets Once daily. 250.40 Current Facility-Administered Medications Medication Dose Route Frequency lidocaine (PF) 10 mg/mL (1 %) 1-2 mg injection (XYLOCAINE) 0.1-0.2 mL INTRADERMAL PRN lactated ringers iv infusion 30 mL/hr INTRAVENOUS CONTINUOUS ALLERGIES: Detrol [Tolterodine Tartrate] and Penicillins PERSONAL HISTORY: SOCIAL HISTORY[1] FAMILY HISTORY: FAMILY HISTORY Problem Relation Age of Onset Diabetes Mother Genitourinary () Mother renal failure Cancer Father rectal cancer Hypertension Sister Diabetes Sister Cancer Sister lymphoma, leukemia Diabetes Brother Breast Cancer Paternal Aunt diagnosed in her late 50's still alive and well Thyroid Cancer Niece/Nephew other (? kidney cancer) (more content not included)... [facility] Pathology biopsy report Denys (Tiss)on 04-19-2025 AP DISCLAIMER [facility] Comment on above: Order Comment: Jack alberts Type: TISSUE SPECIMEN Ordering Facility: [facility] Address: [address] [place] [address] Result Comment: Renuka poe Developed Test (LDT) Disclaimer: Performance characteristics of immunohistochemical, immunofluorescent, and chromogenic in-situ hybridization tests have been determined by the performing laboratory within the [facility] Department of Pathology and Laboratory Medicine ([facility], [facility], [facility], [facility], [facility], [facility], or [facility]) in a manner consistent with CLIA requirements. One or more of these tests may not have been cleared or approved by the FDA. The [facility] Department of Pathology and Laboratory Medicine is regulated under CLIA as qualified to perform high-complexity testing. These tests are used for clinical purposes. These should not be regarded as investigational or for research. Positive and negative controls stain appropriately. Performed By: #### 6 6121-5 #### [facility] CLIA [id number] [address] [place] [address] [place] [facility] CLIA [id number] [address] [place] [address] [place] CASE REPORT [facility] Comment on above: Order Comment: Speci men Type: TISSUE SPECIMEN Ordering Facility: [facility] Address: [address] [place] [address] Result Comment: Surg [facility] Pathology Report Case: [id number] Authorizing Provider: Kiersten Diehl MD Collected: 04/19/2025 08:47 AM Ordering Location: [facility] Endoscopy Received: 04/19/2025 01:49 PM Pathologist: Maurice Sullivan MD, PhD Specimens: A) - Colon, Cecum, Polyp B) - Colon, Biopsy, random colon biopsy C) - Rectum, Polyp Performed By: #### 6 6121-5 #### [facility] CLIA [id number] [address] [place] [address] LAB CLIA [id number] [address] [place] [address] FINAL DIAGNOSIS Normal [facility] Comment on above: Order Comment: Specclaudio alberts Type: TISSUE SPECIMEN Ordering Facility: [facility] Address: [address] [place] [address] Result Comment: A. C olon, cecum, polyp, biopsy: - Tubular adenoma. B. Colon, random biopsy: - Colonic mucosa with no diagnostic abnormality. C. Rectum, polyp, biopsy: - Mostly ulceration/fibrinopurulent exudate, with scant fragment of inflamed colonic mucosa; no evidence of adenoma. at 0933 EDT Performed By: #### 6 6121-5 #### [facility] CLIA [id number] [address] [place] [address] OF [facility] CLIA [id number] [address] [place] [address] FINAL PERFORMING LAB Normal [facility] Comment on above: Order Comment: Sandiei lexus Type: TISSUE SPECIMEN Ordering Facility: [facility] Address: [address] [place] [address] Result Comment: Diag nostic interpretation performed at: [facility], [address] [place] [address] CLIA# [id number] [employer] Vice President [employer] (Ex ): Tera Sarmiento MD Performed By: #### 6 6121-5 #### [facility] CLIA [id number] [address] [place] [address] [place] [facility] CLIA [id number] [address] [place] [address] [place] GROSS DESCRIPTION [facility] Comment on above: Order Comment: Speci men Type: TISSUE SPECIMEN Ordering Facility: [facility] Address: [address] [place] [address] Result Comment: A. C olon, Cecum, Polyp Received in formalin are multiple segments of salvador-brown, polypoid tissue ranging in size from 1.2 x 0.2 x 0.2 cm to 0.2 x 0.1 x 0.1 cm. No stalks are present. The lines of resection are present. The specimens are not sectioned. Totally submitted in two cassettes. B. Colon, Biopsy Received in formalin are multiple pieces of salvador, soft tissue aggregating to 1.5 x 0.2 x 0.2 cm. Totally submitted in one cassette. C. Rectum, Polyp Received in formalin are multiple pieces of salvador, soft tissue aggregating to 0.9 x 0.2 x 0.1 cm. Totally submitted in one cassette. KK April 19, 2025 6:16 PM Gross examination performed at [facility], [address] [place] [address] Performed By: #### 6 6121-5 #### [facility] CLIA [id number] [address] [place] [address] [place] [facility] CLIA [id number] [address] [place] [address] OF [place]GG[place] CNPSheree 04-12-2025 CNPN Telephone ([facility] ----- ALIYAH LEACH ([id number]) 1955 F Date Time Provider Department 04/12/25 CONSTANCE RODRIGUEZ [facility] [place] During your visit today, we recorded the following information about you: Allergies As of Date: 04/12/2025 Noted Allergy Reaction DETROL (TOLTERODINE TARTRATE) 08/08/2005 2 - Rash PENICILLINS 08/08/2005 2 - Rash Comments: Tolerating piperacillin/tazobactam at [facility] in October 2024. AD PharmD Date Reviewed: 04/04/2025 Reviewed by: Rahda San LPN - Fully Assessed Reason for Visit: Results [95] Cmt: Iron levels Prescriptions as of 04/12/2025 - levothyroxine (SYNTHROID) 112 mcg tablet Take 1 tablet by mouth once daily. - magnesium oxide (MAG-OX) 400 mg (241.3 mg magnesium) tablet Take 1 tablet by mouth two times a day. - pravastatin (PRAVACHOL) 40 mg tablet Take 1 tablet by mouth daily at bedtime. - FLUoxetine (PROZAC) 40 mg capsule Take 1 capsule by mouth once daily. - metFORMIN (GLUCOPHAGE) 1,000 mg tablet Take 1 tablet by mouth two times a day with meals. - Incontinence Pad, Liner, Disp (POISE PADS) pads 1 pad five times a day. - losartan (COZAAR) 25 mg tablet Take 1 tablet by mouth two times a day. - dulaglutide (TRULICITY) 1.5 mg/0.5 mL pen injector Inject 1.5 mg subcutaneously one time a week. Inject once per week. Discard Pen After - vit C,F-Gz-cdrbo-lutein-zeaxa n (PRESERVISION AREDS-2) 250-90-40-1 mg Take 1 capsule by mouth twice daily with meals. - CYANOCOBALAMIN/COBAMAMIDE (B12 SUBLINGUAL) Dissolve 1 tablet under the tongue once daily. Last dose 12/07/24 for OR 12/12/24 - Cholecalciferol, Vitamin D3, 125 mcg (5,000 unit) cap Take 125 Units by mouth once daily. Last dose 12/07/24 for OR 12/12/24 - blood sugar diagnostic (ACCU-CHEK ROBIN) test strip Use as instructed - Lancets (ACCU-CHEK SOFTCLIX LANCETS) lancets Once daily. 250.40 - Blood-Glucose Meter (ACCU-CHEK RBOIN PLUS METER) misc 1 Each once daily. - multivitamin ORAL tablet Take 1 tablet by mouth once daily. Last dose 12/07/24 for OR 12/12/24 Problem List As Of Date 04/12/2025 Noted Resolved Benign neoplasm of colon [D12.6] 09/09/2005 12/03/2016 History of malignant neoplasm of large intestin*09/09/2005 12/03/2016 Personal history of colonic polyps [Z86.0100] 09/09/2005 12/03/2016 MALIG NEOPL CERVIX UTERI [180] 12/31/2005 09/07/2007 Depressive disorder, not elsewhere classified [*12/31/2005 12/03/2016 Hypothyroidism [E03.9] 12/31/2005 ASA CLASS III [1003] 12/31/2005 12/03/2016 Type 2 diabetes mellitus without complication (*03/16/2007 01/10/2016 Malignant neoplasm of cervix uteri, unspecified*09/07/2007 12/03/2016 Hypertriglyceridemia [E78.1] 07/10/2009 Mixed Incontinence Urge and Stress (Male)(Femal*11/05/2009 Endometrial cancer [C54.1] 06/13/2011 12/25/2011 S/P hysterectomy with oophorectomy [Z90.710, Z9*06/22/2011 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] 07/14/2011 06/03/2012 Hyperlipidemia [E78.5] 01/21/2012 Diabetes mellitus (HCC) [E11.9] 02/20/2012 Endometrial cancer [C54.1] 11/01/2012 History of cervical cancer [Z85.41] 11/01/2012 History of colon cancer [Z85.038] 11/01/2012 Diabetic neuropathy (HCC) [E11.40] 02/22/2014 Type 2 diabetes mellitus with proteinuria or al*08/16/2014 04/23/2016 Urinary urgency [R39.15] 03/08/2015 12/03/2016 Frequency of micturition [R35.0] 03/08/2015 12/03/2016 Mixed incontinence [N39.46] 03/08/2015 Kidney stone on left side [N20.0] 03/08/2015 Recurrent major depression in partial remission*12/03/2016 Obesity, Class III, BMI >= 40 (morbid obesity) *12/03/2016 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] 08/12/2017 Psoriasis [L40.9] 08/12/2017 Radiculopathy, cervical region [M54.12] 05/05/2018 Colon cancer (HCC) [C18.9] Ectatic thoracic aorta (HCC) [I77.810] 05/08/2020 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 Lesion of liver less than 1 cm in diameter with*05/08/2020 Generalized abdominal pain [R10.84] 04/13/2018 Abdominal distension (gaseous) [R14.0] 04/13/2018 Pain in joint of right hip [M25.551] 10/16/2022 05/19/2024 Personal history of other malignant neoplasm of*08/01/2022 Personal history of malignant neoplasm of other*08/01/2022 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 *08/01/2022 Severe sepsis (HCC) [A41.9, R65.20] 10/23/2024 Right ureteral calculus [N20.1] 10/23/2024 Renal atrophy, left [N26.1] 10/23/2024 CHAPITO (acute kidney injury) (HCC) [N17.9] 10/23/2024 Acute UTI [N39.0] 10/23/2024 Obesity, Class II, BMI 35-39.9 [E66.812] 10/24/2024 Atrial fibrillation with RVR (HCC) [I48.91] 10/30/2024 Hypertension [I10] 10/30/2024 Preop testing [Z01.818] 12/09/2024 Encounter Status:Closed by CONSTANCE RODRIGUEZ on 04/12/25 [facility] 04-05-2025 CELENAN Telephone (MEPRAD) ----- ALIYAH LEACH ([id number]) 1955 F Date Time Provider Department 04/05/25 RADHA NELSON During your visit today, we recorded the following information about you: Radha Nelson PA-C 04/05/2025 1:52 PM Signed TELEPHONE ENCOUNTER Aliyah Leach's medication list was reviewed and patient was noted to be taking Trulicity per patient chart. The patient was contacted via telephone and it was discussed that the patient hold their medication 7 day(s) prior to their date of surgery. Patient confirmed understanding. Patient was also informed to reach out to their surgeon's office if they have any further questions or concerns, patient indicated understanding. SIGNATURE: Radha Nelson PA-C PATIENT NAME: Aliyah Leach DATE: April 05, 2025 Allergies As of Date: 04/05/2025 Noted Allergy Reaction DETROL (TOLTERODINE TARTRATE) 08/08/2005 2 - Rash PENICILLINS 08/08/2005 2 - Rash Comments: Tolerating piperacillin/tazobactam at [facility] in October 2024. AD PharmD Date Reviewed: 04/04/2025 Reviewed by: Radha San LPN - Fully Assessed Prescriptions as of 04/05/2025 - levothyroxine (SYNTHROID) 112 mcg tablet Take 1 tablet by mouth once daily. - magnesium oxide (MAG-OX) 400 mg (241.3 mg magnesium) tablet Take 1 tablet by mouth two times a day. - pravastatin (PRAVACHOL) 40 mg tablet Take 1 tablet by mouth daily at bedtime. - FLUoxetine (PROZAC) 40 mg capsule Take 1 capsule by mouth once daily. - metFORMIN (GLUCOPHAGE) 1,000 mg tablet Take 1 tablet by mouth two times a day with meals. - Incontinence Pad, Liner, Disp (POISE PADS) pads 1 pad five times a day. - losartan (COZAAR) 25 mg tablet Take 1 tablet by mouth two times a day. - dulaglutide (TRULICITY) 1.5 mg/0.5 mL pen injector Inject 1.5 mg subcutaneously one time a week. Inject once per week. Discard Pen After - vit C,H-Jw-jmubs-lutein-zeaxa n (PRESERVISION AREDS-2) 250-90-40-1 mg Take 1 capsule by mouth twice daily with meals. - CYANOCOBALAMIN/COBAMAMIDE (B12 SUBLINGUAL) Dissolve 1 tablet under the tongue once daily. Last dose 12/07/24 for OR 12/12/24 - Cholecalciferol, Vitamin D3, 125 mcg (5,000 unit) cap Take 125 Units by mouth once daily. Last dose 12/07/24 for OR 12/12/24 - blood sugar diagnostic (ACCU-CHEK ROBIN) test strip Use as instructed - Lancets (ACCU-CHEK SOFTCLIX LANCETS) lancets Once daily. 250.40 - Blood-Glucose Meter (ACCU-CHEK ROBIN PLUS METER) misc 1 Each once daily. - multivitamin ORAL tablet Take 1 tablet by mouth once daily. Last dose 12/07/24 for OR 12/12/24 Problem List As Of Date 04/05/2025 Noted Resolved Benign neoplasm of colon [D12.6] 09/09/2005 12/03/2016 History of malignant neoplasm of large intestin*09/09/2005 12/03/2016 Personal history of colonic polyps [Z86.0100] 09/09/2005 12/03/2016 MALIG NEOPL CERVIX UTERI [180] 12/31/2005 09/07/2007 Depressive disorder, not elsewhere classified [*12/31/2005 12/03/2016 Hypothyroidism [E03.9] 12/31/2005 ASA CLASS III [1003] 12/31/2005 12/03/2016 Type 2 diabetes mellitus without complication (*03/16/2007 01/10/2016 Malignant neoplasm of cervix uteri, unspecified*09/07/2007 12/03/2016 Hypertriglyceridemia [E78.1] 07/10/2009 Mixed Incontinence Urge and Stress (Male)(Femal*11/05/2009 Endometrial cancer [C54.1] 06/13/2011 12/25/2011 S/P hysterectomy with oophorectomy [Z90.710, Z9*06/22/2011 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] 07/14/2011 06/03/2012 Hyperlipidemia [E78.5] 01/21/2012 Diabetes mellitus (HCC) [E11.9] 02/20/2012 Endometrial cancer [C54.1] 11/01/2012 History of cervical cancer [Z85.41] 11/01/2012 History of colon cancer [Z85.038] 11/01/2012 Diabetic neuropathy (HCC) [E11.40] 02/22/2014 Type 2 diabetes mellitus with proteinuria or al*08/16/2014 04/23/2016 Urinary urgency [R39.15] 03/08/2015 12/03/2016 Frequency of micturition [R35.0] 03/08/2015 12/03/2016 Mixed incontinence [N39.46] 03/08/2015 Kidney stone on left side [N20.0] 03/08/2015 Recurrent major depression in partial remission*12/03/2016 Obesity, Class III, BMI >= 40 (morbid obesity) *12/03/2016 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] 08/12/2017 Psoriasis [L40.9] 08/12/2017 Radiculopathy, cervical region [M54.12] 05/05/2018 Colon cancer (HCC) [C18.9] Ectatic thoracic aorta (HCC) [I77.810] 05/08/2020 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 [facility] 04-04-2025 OV Office Visit (FAMPWS ) ----- PAYALALIYAH BOND ([id number]) 1955 F Date Time Provider Department 04/04/25 4:40 PM BOBBY GRADYPWS During your visit today, we recorded the following information about you: Pulse Blood pressure Weight 86/minute 112/62 106.1 kg Bobby Grady MD 04/04/2025 5:01 PM Signed - Continue your nightly herbal sleep supplement (the Hunter?s formula with calcium, kava, ashwagandha, and melatonin) as you?ve been taking it. - Proceed with the overnight sleep study scheduled for the end of April to evaluate for a REM sleep behavior disorder (parasomnia). - Attend your neurology appointment in May, after the sleep study, to review the findings and discuss further management. - Keep your eye exam appointment later this month as planned. - Complete your colonoscopy at the end of this month. - No iron supplement is needed despite your iron level being on the lower side of normal. - You remain off Eliquis and metoprolol per prior instructions--no additional changes to your heart medications at this time. - Notify the office if you experience any new or worsening sleep behaviors, visual hallucinations outside of sleep, headaches, weakness, numbness, or vision changes. - Plan to return for follow-up in about 3 to 4 months to review your sleep study and neurology results, the MRI findings, and your overall progress. Bobby Grady MD 04/04/2025 5:11 PM Signed Aliyah Arana Alec is a 70-year-old female presenting for follow-up on visual hallucinations. HPI Visual Hallucinations: - Last seen on March 01 for visual hallucinations. - Hallucinations typically occur at night, described as brief and non-threatening. - Recent hallucination involved seeing an older leah in a yellow satin bunny suit with yellow fuzzy ears, which made her laugh. - Another hallucination involved seeing an old lady at the side of my bed resembling Queen [place]. - Hallucinations do not cause distress; able to return to sleep immediately after. - No vision changes associated with hallucinations. - Aliyah denies hallucinations during the day. - Aliyah is scheduled for an eye exam at the end of the month. - MRI showed a prominent CSF signal focus at the right middle cerebral fossa, deemed not of major clinical significance. - Aliyah is scheduled for a sleep study at the end of April and a neurology appointment in May. - Aliyah is taking an herbal supplement containing calcium, kava, ashwagandha, and melatonin nightly. - Aliyah denies headaches, numbness, tingling, or weakness. - Aliyah denies chest pain, dyspnea, or palpitations. - Aliyah recently discontinued Eliquis and metoprolol. MEDICATIONS: Current Outpatient Medications Medication Sig levothyroxine (SYNTHROID) 112 mcg tablet Take 1 tablet by mouth once daily. magnesium oxide (MAG-OX) 400 mg (241.3 mg magnesium) tablet Take 1 tablet by mouth two times a day. pravastatin (PRAVACHOL) 40 mg tablet Take 1 tablet by mouth daily at bedtime. FLUoxetine (PROZAC) 40 mg capsule Take 1 capsule by mouth once daily. metFORMIN (GLUCOPHAGE) 1,000 mg tablet Take 1 tablet by mouth two times a day with meals. metoprolol succinate ER (TOPROL XL) 25 mg 24 hr tablet Take 1 tablet by mouth once daily. Incontinence Pad, Liner, Disp (POISE PADS) pads 1 pad five times a day. losartan (COZAAR) 25 mg tablet Take 1 tablet by mouth two times a day. apixaban (ELIQUIS) 5 mg tab(s) Take 1 tablet by mouth two times a day. nystatin (MYCOSTATIN) cream Apply to affected area two times a day. (Patient taking differently: Apply to affected area two times a day. [facility] 12/08/24: Course of therapy complete) dulaglutide (TRULICITY) 1.5 mg/0.5 mL pen injector Inject 1.5 mg subcutaneously one time a week. Inject once per week. Discard Pen After vit C,E-Uk-ctwre-lutein-zeaxa n (PRESERVISION AREDS-2) 250-90-40-1 mg Take 1 capsule by mouth twice daily with meals. CYANOCOBALAMIN/COBAMAMIDE (B12 SUBLINGUAL) Dissolve 1 tablet under the tongue once daily. Last dose 12/07/24 for OR 12/12/24 Cholecalciferol, Vitamin D3, 125 mcg (5,000 unit) cap Take 125 Units by mouth once daily. Last dose 12/07/24 for OR 12/12/24 blood sugar diagnostic (ACCU-CHEK ROBIN) test strip Use as instructed Lancets (ACCU-CHEK SOFTCLIX LANCETS) lancets Once daily. 250.40 Blood-Glucose Meter (ACCU-CHEK ROBIN PLUS METER) misc 1 Each once daily. multivitamin ORAL tablet Take 1 tablet by mouth once daily. Last dose 12/07/24 for OR 12/12/24 No current facility-administered medications for this visit. ALLERGIES: ALLERGIES Allergen Reactions Detrol [Tolterodine* Rash Penicillins Rash Tolerating piperacillin/tazobactam at [facility] in October 2024. AD PharmD PAST MEDICAL HISTORY Diagnosis Date Ambulates with cane Atrial fibrillation (HCC) 2023 Dr. Ring. Diagnosed when admitted for kid (more content not included)... [facility] ----- ALIYAH LEACH ([id number]) 1955 F Date Time Provider Department 04/03/25 CONSTANCE RODRIGUEZ [facility] During your visit today, we recorded the following information about you: Allergies As of Date: 04/03/2025 Noted Allergy Reaction DETROL (TOLTERODINE TARTRATE) 08/08/2005 2 - Rash PENICILLINS 08/08/2005 2 - Rash Comments: Tolerating piperacillin/tazobactam at [facility] in October 2024. AD PharmD Date Reviewed: 03/17/2025 Reviewed by: Kevon Gonzalez MD - Fully Assessed Reason for Visit: Results [95] Prescriptions as of 04/03/2025 - levothyroxine (SYNTHROID) 112 mcg tablet Take 1 tablet by mouth once daily. - magnesium oxide (MAG-OX) 400 mg (241.3 mg magnesium) tablet Take 1 tablet by mouth two times a day. - pravastatin (PRAVACHOL) 40 mg tablet Take 1 tablet by mouth daily at bedtime. - FLUoxetine (PROZAC) 40 mg capsule Take 1 capsule by mouth once daily. - metFORMIN (GLUCOPHAGE) 1,000 mg tablet Take 1 tablet by mouth two times a day with meals. - metoprolol succinate ER (TOPROL XL) 25 mg 24 hr tablet Take 1 tablet by mouth once daily. - Incontinence Pad, Liner, Disp (POISE PADS) pads 1 pad five times a day. - losartan (COZAAR) 25 mg tablet Take 1 tablet by mouth two times a day. - apixaban (ELIQUIS) 5 mg tab(s) Take 1 tablet by mouth two times a day. - nystatin (MYCOSTATIN) cream Apply to affected area two times a day. - dulaglutide (TRULICITY) 1.5 mg/0.5 mL pen injector Inject 1.5 mg subcutaneously one time a week. Inject once per week. Discard Pen After - vit C,U-Fi-hamls-lutein-zeaxa n (PRESERVISION AREDS-2) 250-90-40-1 mg Take 1 capsule by mouth twice daily with meals. - CYANOCOBALAMIN/COBAMAMIDE (B12 SUBLINGUAL) Dissolve 1 tablet under the tongue once daily. Last dose 12/07/24 for OR 12/12/24 - Cholecalciferol, Vitamin D3, 125 mcg (5,000 unit) cap Take 125 Units by mouth once daily. Last dose 12/07/24 for OR 12/12/24 - blood sugar diagnostic (ACCU-CHEK ROBIN) test strip Use as instructed - Lancets (ACCU-CHEK SOFTCLIX LANCETS) lancets Once daily. 250.40 - Blood-Glucose Meter (ACCU-CHEK ROBIN PLUS METER) misc 1 Each once daily. - multivitamin ORAL tablet Take 1 tablet by mouth once daily. Last dose 12/07/24 for OR 12/12/24 Problem List As Of Date 04/03/2025 Noted Resolved Benign neoplasm of colon [D12.6] 09/09/2005 12/03/2016 History of malignant neoplasm of large intestin*09/09/2005 12/03/2016 Personal history of colonic polyps [Z86.0100] 09/09/2005 12/03/2016 MALIG NEOPL CERVIX UTERI [180] 12/31/2005 09/07/2007 Depressive disorder, not elsewhere classified [*12/31/2005 12/03/2016 Hypothyroidism [E03.9] 12/31/2005 ASA CLASS III [1003] 12/31/2005 12/03/2016 Type 2 diabetes mellitus without complication (*03/16/2007 01/10/2016 Malignant neoplasm of cervix uteri, unspecified*09/07/2007 12/03/2016 Hypertriglyceridemia [E78.1] 07/10/2009 Mixed Incontinence Urge and Stress (Male)(Femal*11/05/2009 Endometrial cancer [C54.1] 06/13/2011 12/25/2011 S/P hysterectomy with oophorectomy [Z90.710, Z9*06/22/2011 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] 07/14/2011 06/03/2012 Hyperlipidemia [E78.5] 01/21/2012 Diabetes mellitus (HCC) [E11.9] 02/20/2012 Endometrial cancer [C54.1] 11/01/2012 History of cervical cancer [Z85.41] 11/01/2012 History of colon cancer [Z85.038] 11/01/2012 Diabetic neuropathy (HCC) [E11.40] 02/22/2014 Type 2 diabetes mellitus with proteinuria or al*08/16/2014 04/23/2016 Urinary urgency [R39.15] 03/08/2015 12/03/2016 Frequency of micturition [R35.0] 03/08/2015 12/03/2016 Mixed incontinence [N39.46] 03/08/2015 Kidney stone on left side [N20.0] 03/08/2015 Recurrent major depression in partial remission*12/03/2016 Obesity, Class III, BMI >= 40 (morbid obesity) *12/03/2016 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] 08/12/2017 Psoriasis [L40.9] 08/12/2017 Radiculopathy, cervical region [M54.12] 05/05/2018 Colon cancer (HCC) [C18.9] Ectatic thoracic aorta (HCC) [I77.810] 05/08/2020 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 Lesion of liver less than 1 cm in diameter with*05/08/2020 Generalized abdominal pain [R10.84] 04/13/2018 Abdominal distension (gaseous) [R14.0] 04/13/2018 Pain in joint of right hip [M25.551] 10/16/2022 05/19/2024 Personal history of other malignant neoplasm of*08/01/2022 Personal history of malignant neoplasm of other*08/01/2022 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 Normal [facility] Ferritin SerPl-mCncon 2024 Ferritin [Mass/Vol] 62.5 ng/mL Normal 14.7-205.1 [facility] Comment on above: Order Comment: Speci men Type: BLOOD SPECIMENOrdering Facility: [facility] Address: [address] [place] [address] Performed By: #### 5 0190-8, 2275-4 ####[facility] LABCLIA [id number] [place] [address] [place] Iron and Iron binding capaci ty panelon 03-29-2025 Iron [Mass/Vol] 65 ug/dL Normal 41-186 [facility] Comment on above: Order Comment: Speci men Type: BLOOD SPECIMENOrdering Facility: [facility] Address: [address] [place] [address] Performed By: #### 5 0190-8, 6-4 ####[facility] LABIA [id number] [place] [address] [place] Iron binding capacity [Mass/Vol] 313 ug/dL Normal 232-386 [facility] Comment on above: Order Comment: Speci men Type: BLOOD SPECIMENOrdering Facility: [facility] Address: [address] [place] [address] Performed By: #### 5 0190-8, 2276-4 ####[facility] LABIA [id number] [address] [place] Iron/TIBC [Molar ratio] 20.8 % Normal 15.0-57.0 [facility] Comment on above: Order Comment: Speci men Type: BLOOD SPECIMENOrdering Facility: [facility] Address: [address] [place] [address] Performed By: #### 5 0190-8, 2276-4 ####[facility] [id number] [address] [place] CNOVon 03-17-2025 CNOV Office Visit (NEURFH ) ----- ALIYAH LEACH ([id number]) 1955 F Date Time Provider Department 03/17/25 9:20 AM CONSTANCE RODRIGUEZ NEURFH During your visit today, we recorded the following information about you: Pulse Blood pressure Weight Height 72/minute 131/57 106 kg 1.626 m Kevon Gonzalez MD 03/17/2025 1:37 PM Addendum [facility] New Patient Evaluation PATIENT NAME: Aliyah Leach DATE OF SERVICE: March 17, 2025 CONSULTING PROVIDER: Bobby Grady [address] [place] [address] [facility] [address] REASON FOR CONSULT: Bobby Grady sends the patient for an opinion about visual hallucinations. My findings and recommendations will be transmitted electronically via shared medical record to the consulting provider. HPI: This is a 70-year-old female who presented to the [facility] on 03/17/2025 for initial evaluation. Her primary concern is a one year history of visual hallucinations. She states that the visual hallucinations are happening predominantly between midnight and 6AM. She estimates that she typically sees 3-4 different people per night. The people that she sees are of varying ages. She states that she never sees the same person. She states that she does not recognize the people that she sees as relatives, friends, or famous people. She does not interact with the hallucinations and she does not find them distressing. She does not feel any physical symptoms associated with the hallucinations. The patient's sister recently reminded her that she had visual hallcuinations after receiving B12 shots in her 20s. She denies any such symptoms in childhood. She denies any family history of such symptoms. She denies any recent traumas or falls. The clarity of her visual symptoms are unchanged whether she has her corrective lenses on. She denies any personal history of tonsillectomy. Additional sleep review of systems is positive for difficulty with sleep initiation and maintenance, daytime sleepiness, snoring, dry mouth on awakening, morning headaches, night sweats, frequent nocturnal limb movements, and heart burn. The patient also reports an uncontrollable urge to move her legs, which she states is confounded by her concurrent diabetic neuropathy, altering the sensorium from the mid-calf down). Review of systems is negative for witnessed apnea, choking/gasping episodes, sinus congestion, cataplexy, sleep paralysis, sleepiness while driving. She has additionally had a progressive weight gain. In order to improve her sleep maintenance, the patient has tried melatonin, Tylenol PM, THC gummies, and a Melaleuca supplement with no efficacy and no effect on hallcuinations. The patient's past medical history is significant for atrial fibrillation found during her last hospitalization in October for which she is taking Eliquis, magnesium, and metoprolol. She recently wore an event monitor for two weeks. Her additional medical history is significant for Type II DM for which she uses Trulicity and Metformin. She states she checks her blood sugar every morning and can feel when she becomes hypoglycemic. She denies any hypoglycemia episodes. Her medications were reviewed and she takes losartan for hypertension as well as pravastatin for hyperlipidemia. She has chronically been maintained on fluoxetine with no recent dosage changes. She is typically taking her morning meds at noon and her evening medications at midnight. Sleep Environment: The patient prefers to sleep on her right side. She keeps her bedroom cool. She reads books in her bed for several hours before falling asleep. She does not sleep with any lights on and does not watch television in her room. The patient's family history is significant for thyroid disease, diabetes melltius, unspecified cancer, and depression. The patient's dietary habits were reviewed. Up until a recent hospitalization in October 2024 for nephrolithiasis she was drinking a gallon on iced tea per day. Now she has one or two cups of decaffeinated iced tea. She states that she's not eating breakfast. She typically eats at 2pm, 530pm, and 9pm. She denies having any food or drink after getting into her bed for the night. THe patient denies any alcohol or tobacco consumption. Sleep history: - Overall goals of treatment: Improve sleep quality and reduce visual hallucinations. - Sleep habits: - Typical bedtime: 00:00 - Patient goes to bed around midnight and reads until she falls asleep around 03:00. - Typical wake time: 12:00 - Time to fall asleep: Approximately 2 hours. - Nighttime awakening number: Wakes up multiple times a night due to hallucinations. - Nap schedule: Occasionally takes naps lasting about an hour, but does not find them refreshing. - [place] sleepiness scale score: 8/24 Patient Questionnaires Sleep Sco (more content not included)... Normal [facility] MR Brain WO and W contrast I Von 03-06-2025 IMPRESSION: 1. Prominent CSF signal focus at right middle cranial fossa. 2. Differential provided above and most likely is of no major clinical significance. 3. Otherwise age expected brain without any acute intracranial disease. Endoscopy Nurse: DILSHAD Transcribe Date/Time: Mar 06 2025 2:01P Dictated by : MIHIR BECERRIL MD This examination was interpreted and the report reviewed and electronically signed by: MIHIR BECERRIL MD on Mar 06 2025 2:05PM [facility] DIVISION OF RADIOLOGY * * *Final Report* * * DATE OF EXAM: Mar 06 2025 1:56PM [facility] 0295 - MRI BRAIN WO/W IVCON / PROCEDURE REASON: multiple diagnoses * * * * Physician Interpretation * * * * COMPARISONS: None. HISTORY: Visual hallucinations. TECHNIQUE: MRI brain without and with contrast. MQ: MRBWOW_2 CONTRAST: 10 mL Elucirem IV. RESULT: MRI BRAIN: Acute abnormality: None. Prominent CSF space at right lateral aspect of cavernous sinus & anterior/lateral to Meckel's cave with mild indentation on right cavernous sinus - Meckel's cave - medial temporal lobe extending into foramina ovale. 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 Significance of this is unclear and likely is an incidental finding with normal variant. Whether its indentation on the limbic system along the right side at medial temporal lobe is causing patient's symptoms or not is unclear and may be further correlated clinically. No restricted diffusion concerning for acute ischemia. No susceptibility concerning for acute hemorrhage. Age expected sulci, gyri, ventricles, CSF spaces, brain, bones & skull base with senescent volume loss, microvascular ischemia, accentuation of CSF spaces and ventricular dilation. No evidence for intracranial mass effect or collections. Left pseudophakia. DIVISION OF RADIOLOGY Provider, [facility] - 03/06/2025 * * *Final Report* * * DATE OF EXAM: Mar 06 2025 1:56PM [facility] 0295 - MRI BRAIN WO/W IVCON / PROCEDURE REASON: multiple diagnoses * * * * Physician Interpretation * * * * COMPARISONS: None. HISTORY: Visual hallucinations. TECHNIQUE: MRI brain without and with contrast. MQ: MRBWOW_2 CONTRAST: 10 mL Elucirem IV. RESULT: MRI BRAIN: Acute abnormality: None. Prominent CSF space at right lateral aspect of cavernous sinus & anterior/lateral to Meckel's cave with mild indentation on right cavernous sinus - Meckel's cave - medial temporal lobe extending into foramina ovale. 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 Significance of this is unclear and likely is an incidental finding with normal variant. Whether its indentation on the limbic system along the right side at medial temporal lobe is causing patient's symptoms or not is unclear and may be further correlated clinically. No restricted diffusion concerning for acute ischemia. No susceptibility concerning for acute hemorrhage. Age expected sulci, gyri, ventricles, CSF spaces, brain, bones & skull base with senescent volume loss, microvascular ischemia, accentuation of CSF spaces and ventricular dilation. No evidence for intracranial mass effect or collections. Left pseudophakia. IMPRESSION IMPRESSION: 1. Prominent CSF signal focus at right middle cranial fossa. 2. Differential provided above and most likely is of no major clinical significance. 3. Otherwise age expected brain without any acute intracranial disease. Endoscopy Nurse: PSCB Transcribe Date/Time: Mar 06 2025 2:01P Dictated by : MIHIR BECERRIL MD This examination was interpreted and the report reviewed and electronically signed by: MIHIR BECERRIL MD on Mar 06 2025 2:05PM EST [facility] Radiology Study observation (narrative) [facility] MR Brain WO and W contrast I VOrdered By: Ccf Provider on 03-06-2025 [facility] MRI BRAIN WO/W IVCONon 03-06 MRI BRAIN WO/W IVCON * * *Final Report* * * DATE OF EXAM: Mar 06 2025 1:56PM [facility] 0295 - MRI BRAIN WO/W IVCON / PROCEDURE REASON: multiple diagnoses * * * * Physician Interpretation * * * * COMPARISONS: None. HISTORY: Visual hallucinations. TECHNIQUE: MRI brain without and with contrast. MQ: MRBWOW_2 CONTRAST: 10 mL Elucirem IV. RESULT: MRI BRAIN: Acute abnormality: None. Prominent CSF space at right lateral aspect of cavernous sinus and anterior/lateral to Meckel's cave with mild indentation on right cavernous sinus - Meckel's cave - medial temporal lobe extending into foramina ovale. 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 Significance of this is unclear and likely is an incidental finding with normal variant. Whether its indentation on the limbic system along the right side at medial temporal lobe is causing patient's symptoms or not is unclear and may be further correlated clinically. No restricted diffusion concerning for acute ischemia. No susceptibility concerning for acute hemorrhage. Age expected sulci, gyri, ventricles, CSF spaces, brain, bones and skull base with senescent volume loss, microvascular ischemia, accentuation of CSF spaces and ventricular dilation. No evidence for intracranial mass effect or collections. Left pseudophakia. IMPRESSION: 1. Prominent CSF signal focus at right middle cranial fossa. 2. Differential provided above and most likely is of no major clinical significance. 3. Otherwise age expected brain without any acute intracranial disease. Endoscopy Nurse: DILSHAD Transcribe Date/Time: Mar 06 2025 2:01P Dictated by : MIHIR BECERRIL MD This examination was interpreted and the report reviewed and electronically signed by: MIHIR BECERRIL MD on Mar 06 2025 2:05PM EST [id number] Normal [facility] 25(OH[facility]3 [facility] 25-hydroxyvitamin D3 [Mass/Vol] 49.8 ng/mL Normal 31.0-80.0 [facility] Comment on above: Order Comment: Speci men Type: BLOOD SPECIMENOrdering Facility: [facility] Address: [address] [place] [address] Result Comment: Clas sification of 25 [place] Vitamin D status: Deficiency/Insufficiency: < or = 30 ng/ml. Sufficiency/Optimal Levels: 31-80 ng/mL Toxicity: > 100 ng/mL. Test performed by chemiluminescent immunoassay. Performed By: #### 1 989-3 ####[facility] LABCLIA [id number] [place] [address] [place] 25-hydroxyvitamin D3 [Mass/V ol]on 03-01-2025 Interpretation and review of laboratory results Normal [facility] The reference range interval was based on an analysis of samples from healthy adults and may not pertain to children from 0-18 years old. [facility] CBC W Auto Differential pane l (Bld)on 03-01-2025 Basophils (Bld) [#/Vol] 0.06 10*3/uL [facility] Basophils/100 WBC (Bld) 0.6 % [facility] Differential cell count method Nom (Bld) Auto [facility] Eosinophils (Bld) [#/Vol] 0.23 10*3/uL [facility] Eosinophils/100 WBC (Bld) 2.5 % [facility] Erythrocyte distribution width (RBC) [Ratio] 14.7 % 11.5 - 15.0 % [facility] Hematocrit (Bld) [Volume fraction] 38.4 % 36.0 - 46.0 % [facility] Hemoglobin (Bld) [Mass/Vol] 11.9 g/dL 11.5 - 15.5 g/dL [facility] Immature granulocytes (Bld) [#/Vol] 0.04 10*3/uL [facility] Immature granulocytes/100 WBC (Bld) 0.4 % [facility] Lymphocytes (Bld) [#/Vol] 1.8 10*3/uL [facility] Lymphocytes/100 WBC (Bld) 19.4 % [facility] MCH (RBC) [Entitic mass] 27.4 pg 26.0 - 34.0 pg [facility] MCHC (RBC) [Mass/Vol] 31 g/dL 30.5 - 36.0 g/dL [facility] MCV (RBC) [Entitic vol] 88.5 fL 80.0 - 100.0 fL [facility] Monocytes (Bld) [#/Vol] 0.57 10*3/uL [facility] Monocytes/100 WBC (Bld) 6.1 % [facility] Neutrophils (Bld) [#/Vol] 6.6 10*3/uL [facility] Neutrophils/100 WBC (Bld) 71 % [facility] Nucleated RBC (Bld) [#/Vol] [facility] Nucleated RBC/100 WBC (Bld) [Ratio] 0 % /100 WBC [facility] Platelet mean volume (Bld) [Entitic vol] 9.8 fL 9.0 - 12.7 fL [facility] Platelets (Bld) [#/Vol] 385 10*3/uL [facility] RBC (Bld) [#/Vol] 4.34 10*6/uL 3.90 - 5.2 0 m/uL [facility] WBC (Bld) [#/Vol] 9.3 10*3/uL [facility] Basophils (Bld) [#/Vol] 0.06 10*3/uL Normal <0.11 [facility] Comment on above: Order Comment: Speci men Type: BLOOD SPECIMENOrdering Facility: [facility] Address: [address] [place], [place] [address] Performed By: #### 5 7021-8 ####[facility] LABCLIA [id number] [facility] [id number] [address] [place] Basophils/100 WBC (Bld) 0.6 % Normal [facility] Comment on above: Order Comment: Speci men Type: BLOOD SPECIMENOrdering Facility: [facility] Address: [address] [place] [address] Performed By: #### 5 7021-8 ####[facility] LABCLIA [id number] [address] [place] [address] [place] Differential cell count method Nom (Bld) Auto Normal [facility] Comment on above: Order Comment: Speci men Type: BLOOD SPECIMENOrdering Facility: [facility] Address: [address] [place] [address] Performed By: #### 5 7021-8 ####[facility] LABCLIA [id number] [facility] [address], [facility] [place] Eosinophils (Bld) [#/Vol] 0.23 10*3/uL Normal <0.46 [facility] Comment on above: Order Comment: Speci men Type: BLOOD SPECIMENOrdering Facility: [facility] Address: [address] [place] [address] Performed By: #### 5 7021-8 ####[facility] LABCLIA [id number] [facility] [address], [facility] [place] Eosinophils/100 WBC (Bld) 2.5 % Normal [facility] Comment on above: Order Comment: Speci men Type: BLOOD SPECIMENOrdering Facility: [facility] Address: [address] [place] [address] Performed By: #### 5 7021-8 ####[facility] LABCLIA [id number] [facility] [address] [place] [address] [place] Erythrocyte distribution width (RBC) [Ratio] 14.7 % Normal 11.5-15.0 [facility] Comment on above: Order Comment: Speci men Type: BLOOD SPECIMENOrdering Facility: [facility] Address: [address] [place] [address] Performed By: #### 5 7021-8 ####[facility] LABCLIA [id number] [place] [address] [place] Hematocrit (Bld) [Volume fraction] 38.4 % Normal 36.0-46.0 [facility] Comment on above: Order Comment: Speci men Type: BLOOD SPECIMENOrdering Facility: [facility] Address: [address] [place] [address] Performed By: #### 5 7021-8 ####[facility] LABCLIA [id number] [place] [address] [place] Hemoglobin (Bld) [Mass/Vol] 11.9 g/dL Normal 11.5-15.5 [facility] Comment on above: Order Comment: Speci men Type: BLOOD SPECIMENOrdering Facility: [facility] Address: [address] [place] [address] Performed By: #### 5 7021-8 ####[facility] LABCLIA [id number] [place] [address] [place] Immature granulocytes (Bld) [#/Vol] 0.04 10*3/uL Normal <0.10 [facility] Comment on above: Order Comment: Speci men Type: BLOOD SPECIMENOrdering Facility: [facility] Address: [address] [place] [address] Performed By: #### 5 7021-8 ####[facility] LABCLIA [id number] [place] [address] [place] Immature granulocytes/100 WBC (Bld) 0.4 % Normal [facility] Comment on above: Order Comment: Speci men Type: BLOOD SPECIMENOrdering Facility: [facility] Address: [address] [place] [address] Performed By: #### 5 7021-8 ####[facility] LABCLIA [id number] [place] [address] [place] Lymphocytes (Bld) [#/Vol] 1.80 10*3/uL Normal 1.00-4.00 [facility] Comment on above: Order Comment: Speci men Type: BLOOD SPECIMENOrdering Facility: [facility] Address: [address] [place] [address] Performed By: #### 5 7021-8 ####[facility] LABCLIA [id number] [place] [address] [place] Lymphocytes/100 WBC (Bld) 19.4 % Normal [facility] Comment on above: Order Comment: Speci men Type: BLOOD SPECIMENOrdering Facility: [facility] Address: [address] [place] [address] Performed By: #### 5 7021-8 ####[facility] LABIA [id number] [place] [address] [place] MCH (RBC) [Entitic mass] 27.4 pg Normal 26.0-34.0 [facility] Comment on above: Order Comment: Speci men Type: BLOOD SPECIMENOrdering Facility: [facility] Address: [address] [place] [address] Performed By: #### 5 7021-8 ####[facility] LABIA [id number] [place] [address] [place] MCHC (RBC) [Mass/Vol] 31.0 g/dL Normal 30.5-36.0 [facility] Comment on above: Order Comment: Speci men Type: BLOOD SPECIMENOrdering Facility: [facility] Address: [address] [place] [address] Performed By: #### 5 7021-8 ####[facility] LABCLIA [id number] [place] [address] [place] MCV (RBC) [Entitic vol] 88.5 fL Normal 80.0-100.0 [facility] Comment on above: Order Comment: Speci men Type: BLOOD SPECIMENOrdering Facility: [facility] Address: [address] [place] [address] Performed By: #### 5 7021-8 ####[facility] LABCLIA [id number] [place] [id number] [place] Monocytes (Bld) [#/Vol] 0.57 10*3/uL Normal <0.87 [facility] Comment on above: Order Comment: Speci men Type: BLOOD SPECIMENOrdering Facility: [facility] Address: [address] [place] [address] Performed By: #### 5 7021-8 ####[facility] LABCLIA [id number] [place] [address] [place] Monocytes/100 WBC (Bld) 6.1 % Normal [facility] Comment on above: Order Comment: Speci men Type: BLOOD SPECIMENOrdering Facility: [facility] Address: [address] [place] [address] Performed By: #### 5 7021-8 ####[facility] LABCLIA [id number] [place] [address] [place] Neutrophils (Bld) [#/Vol] 6.60 10*3/uL Normal 1.45-7.50 [facility] Comment on above: Order Comment: Speci men Type: BLOOD SPECIMENOrdering Facility: [facility] Address: [address] [place] [address] Performed By: #### 5 7021-8 ####[facility] LABCLIA [id number] [place] [address] [place] Neutrophils/100 WBC (Bld) 71.0 % Normal [facility] Comment on above: Order Comment: Speci men Type: BLOOD SPECIMENOrdering Facility: [facility] Address: [address] [place] [address] Performed By: #### 5 7021-8 ####[facility] LABCLIA [id number] [address] [place] [address] [place] Nucleated RBC (Bld) [#/Vol] 10*3/uL Normal <0.01 [facility] Comment on above: Order Comment: Speci men Type: BLOOD SPECIMENOrdering Facility: [facility] Address: [address] [place] [address] Performed By: #### 5 7021-8 ####[facility] LABCLIA [id number] [facility] [address], [facility] [place] Nucleated RBC/100 WBC (Bld) [Ratio] 0.0 /100 WBC Normal [facility] Comment on above: Order Comment: Speci men Type: BLOOD SPECIMENOrdering Facility: [facility] Address: [address] [place] [address] Performed By: #### 5 7021-8 ####[facility] LABIA [id number] [address], [place] [address] [place] Platelet mean volume (Bld) [Entitic vol] 9.8 fL Normal 9.0-12.7 [facility] Comment on above: Order Comment: Speci men Type: BLOOD SPECIMENOrdering Facility: [facility] Address: [address] [place] [address] Performed By: #### 5 7021-8 ####[facility] LABCLIA [id number] [address], [facility] [place] Platelets (Bld) [#/Vol] 385 10*3/uL Normal 150-400 [facility] Comment on above: Order Comment: Speci men Type: BLOOD SPECIMENOrdering Facility: [facility] Address: [address] [place] [address] Performed By: #### 5 7021-8 ####[facility] LABCLIA [id number] [facility] [address] [place] [address] [place] RBC (Bld) [#/Vol] 4.34 10*6/uL Normal 3.90-5.20 [facility] Comment on above: Order Comment: Speci men Type: BLOOD SPECIMENOrdering Facility: [facility] Address: [address] [place] [address] Performed By: #### 5 7021-8 ####[facility] LABCLIA [id number] [place] [address] [place] WBC (Bld) [#/Vol] 9.30 10*3/uL Normal 3.70-11.00 [facility] Comment on above: Order Comment: Speci men Type: BLOOD SPECIMENOrdering Facility: [facility] Address: [address] [place] [address] Performed By: #### 5 7021-8 ####[facility] LABCLIA [id number] [address] [place] CNOVon 03-01-2025 CNOV Office Visit (FAMPWS ) ----- ALIYAH LEACH ([id number]) 1955 F Date Time Provider Department 03/01/25 10:20 AM BOBBY GRADY FAMPWS During your visit today, we recorded the following information about you: Pulse Blood pressure Weight 78/minute 138/85 105.2 kg Bobby Grady MD 03/01/2025 12:09 PM Signed Patient presents with: Follow Up HPI: Patient presents today for office visit for acute follow up. Visual Hallucinations: - Experiencing visual hallucinations multiple times per night, described as seeing distinct people or figures upon waking. - Hallucinations are brief and disappear when addressed; no auditory component. - Occasional daytime hallucinations when waking from naps. - No associated seizures, tremors, or loss of bowel/bladder control. - No recent head trauma or falls. - No history of seizures. - No recent medication changes; currently taking Prozac and B12. - Denies anxiety, depression, or significant memory issues. - No chest pain or dyspnea. - No chronic numbness or weakness in extremities. - No new dizziness or vertigo. - No unusual headaches. - No significant vision changes; has an upcoming eye appointment in March. - No known allergies. - Scheduled for a colonoscopy in March. - Recent blood glucose readings around 137 mg/dL. - Wearing a heart monitor for a month to rule out AFib. MEDICATIONS: Current Outpatient Medications Medication Sig iv contrast (will be provided with radiology test) MRI Brain Inject, intravenously, once for 1 dose.No IV access, insert saline lock prior to beginning of sedation, infusion, injection of imaging exam.Discontinue saline lock post exam. If Pt. has a central line or IVAD, may access for administration according to line specific nursing protocol.Once exam is complete flush line and de-access according to line specific nursing protocol in the MR contrast administration guidelines link pravastatin (PRAVACHOL) 40 mg tablet Take 1 tablet by mouth daily at bedtime. FLUoxetine (PROZAC) 40 mg capsule Take 1 capsule by mouth once daily. metFORMIN (GLUCOPHAGE) 1,000 mg tablet Take 1 tablet by mouth two times a day with meals. magnesium oxide (MAG-OX) 400 mg (241.3 mg magnesium) tablet Take 1 tablet by mouth two times a day. metoprolol succinate ER (TOPROL XL) 25 mg 24 hr tablet Take 1 tablet by mouth once daily. Incontinence Pad, Liner, Disp (POISE PADS) pads 1 pad five times a day. losartan (COZAAR) 25 mg tablet Take 1 tablet by mouth two times a day. apixaban (ELIQUIS) 5 mg tab(s) Take 1 tablet by mouth two times a day. nystatin (MYCOSTATIN) cream Apply to affected area two times a day. (Patient taking differently: Apply to affected area two times a day. PAC 12/08/24: Course of therapy complete) melatonin 3 mg capsules Take 3 mg by mouth daily at bedtime. Last dose 12/07/24 for OR 12/12/24 dulaglutide (TRULICITY) 1.5 mg/0.5 mL pen injector Inject 1.5 mg subcutaneously one time a week. Inject once per week. Discard Pen After levothyroxine (SYNTHROID) 112 mcg tablet Take 1 tablet by mouth once daily. vit C,J-Zl-xxbbx-lutein-zeaxa n (PRESERVISION AREDS-2) 250-90-40-1 mg Take 1 capsule by mouth twice daily with meals. CYANOCOBALAMIN/COBAMAMIDE (B12 SUBLINGUAL) Dissolve 1 tablet under the tongue once daily. Last dose 12/07/24 for OR 12/12/24 Cholecalciferol, Vitamin D3, 125 mcg (5,000 unit) cap Take 125 Units by mouth once daily. Last dose 12/07/24 for OR 12/12/24 blood sugar diagnostic (ACCU-CHEK ROBIN) test strip Use as instructed Lancets (ACCU-CHEK SOFTCLIX LANCETS) lancets Once daily. 250.40 Blood-Glucose Meter (ACCU-CHEK ROBIN PLUS METER) misc 1 Each once daily. multivitamin ORAL tablet Take 1 tablet by mouth once daily. Last dose 12/07/24 for OR 12/12/24 No current facility-administered medications for this visit. ALLERGIES: ALLERGIES Allergen Reactions Detrol [Tolterodine* Rash Penicillins Rash Tolerating piperacillin/tazobactam at [facility] in October 2024. AD PharmD PAST MEDICAL HISTORY Diagnosis Date Ambulates with cane Atrial fibrillation (HCC) 2023 Dr. Ring. Diagnosed when admitted for kidney stone. 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 Osborn. Has had kidney stones on right and left. Malignant neoplas (more content not included)... Normal [facility] Comprehensive metabolic 2000 panelon 03-01-2025 Albumin [Mass/Vol] 4.1 g/dL 3.9 - 4.9 g/dL [facility] ALP [Catalytic activity/Vol] 53 U/L 34 - 123 U/L [facility] ALT [Catalytic activity/Vol] 15 U/L 7 - 38 U/L [facility] Anion gap [Moles/Vol] 14 mmol/L 8 - 15 mmol/L [facility] AST [Catalytic activity/Vol] 15 U/L 13 - 35 U/L [facility] Bilirubin [Mass/Vol] 0.2 mg/dL 0.2 - 1 .3 mg/dL [facility] Calcium [Mass/Vol] 10 mg/dL 8.5 - 10. 2 mg/dL [facility] Chloride [Moles/Vol] 103 mmol/L 98 - 10 7 mmol/L [facility] CO2 [Moles/Vol] 23 mmol/L 22 - 30 mmol/L [facility] Creatinine [Mass/Vol] 0.98 mg/dL High 0.58 - 0.96 mg/dL [facility] GFR/1.73 sq M.predicted among non-blacks MDRD (S/P/Bld) [Vol rate/Area] 61 mL/min/{1.73_m2} - PINF [facility] Comment on above: Estimated Glomerular Filtration Rate (eGFR) is calculated using the 2020 CKD-EPI creatinine equation. This equation utilizes serum creatinine, sex, and age as parameters. The creatinine assay has traceable calibration to isotope dilution-mass spectrometry. Refer to KDIGO guidelines for clinical interpretation. In patients with unstable renal function, e.g. those with acute kidney injury, the eGFR may not accurately reflect actual GFR. Glucose [Mass/Vol] 103 mg/dL High 74 - 99 mg/dL [facility] Comment on above: The [place] Diabete s Association (ADA) provides guidance for cutoff values for fasting glucose and random glucose. The ADA defines fasting as no caloric intake for at least 8 hours. Fasting plasma glucose results between 100 to 125 mg/dL indicate increased risk for diabetes (prediabetes). Fasting plasma glucose results greater than or equal to 126 mg/dL meet the criteria for diagnosis of diabetes. In the absence of unequivocal hyperglycemia, results should be confirmed by repeat testing. In a patient with classic symptoms of hyperglycemia or hyperglycemic crisis, random plasma glucose results greater than or equal to 200 mg/dL meet the criteria for diagnosis of diabetes. Reference: Standards of Medical Care in Diabetes 2016, [place] Diabetes Association. Diabetes Care. 2016.39(Suppl 1). Interpretation and review of laboratory results Abnormal [facility] Potassium [Moles/Vol] 4.7 mmol/L 3.7 - 5.1 mmol/L [facility] Protein [Mass/Vol] 6.7 g/dL 6.3 - 8.0 g/dL [facility] Sodium [Moles/Vol] 140 mmol/L 136 - 144 mmol/L [facility] Urea nitrogen [Mass/Vol] 18 mg/dL 7 - 21 mg/dL [facility] Albumin [Mass/Vol] 4.1 g/dL Normal 3.9-4.9 [facility] Comment on above: Order Comment: Speci men Type: BLOOD SPECIMENOrdering Facility: [facility] Address: [address] [place] [address] Performed By: #### 2 284-8, 2131-9, 40634-3, 3016-3 ####[facility] LABCLIA [id number] [place] [address] [place] ALP [Catalytic activity/Vol] 53 U/L Normal 34-123 [facility] Comment on above: Order Comment: Speci men Type: BLOOD SPECIMENOrdering Facility: [facility] Address: [address] [place] [address] Performed By: #### 2 284-8, 2131-9, 89239-0, 3016-3 ####[facility] LABIA [id number] [place] [address] [place] ALT [Catalytic activity/Vol] 15 U/L Normal 7-38 [facility] Comment on above: Order Comment: Speci men Type: BLOOD SPECIMENOrdering Facility: [facility] Address: [address] [place] [address] Performed By: #### 2 284-8, 2131-9, 90815-3, 3016-3 ####[facility] LABCLIA [id number] [address] [address] [place] Anion gap [Moles/Vol] 14 mmol/L Normal 8-15 [facility] Comment on above: Order Comment: Speci men Type: BLOOD SPECIMENOrdering Facility: [facility] Address: [address] [place], [place] [address] Performed By: #### 2 284-8, 2131-9, 60470-4, 6-3 ####[facility] LABCLIA [id number] [address] [address] [place] AST [Catalytic activity/Vol] 15 U/L Normal 13-35 [facility] Comment on above: Order Comment: Speci men Type: BLOOD SPECIMENOrdering Facility: [facility] Address: [address] [place], [place] [address] Performed By: #### 2 284-8, 2131-9, 51800-0, 6-3 ####[facility] LABCLIA [id number] [place] [id number] [place] Bilirubin [Mass/Vol] 0.2 mg/dL Normal 0.2-1.3 [facility] Comment on above: Order Comment: Speci men Type: BLOOD SPECIMENOrdering Facility: [facility] Address: [address] [place] [address] Performed By: #### 2 284-8, 2131-9, 92640-1, 6-3 ####[facility] LABCLIA [id number] [place] [id number] [place] Calcium [Mass/Vol] 10.0 mg/dL Normal 8.5-10.2 [facility] Comment on above: Order Comment: Speci men Type: BLOOD SPECIMENOrdering Facility: [facility] Address: [address] [place], [place] [address] Performed By: #### 2 284-8, 2131-9, 40826-1, 6-3 ####[facility] LABCLIA [id number] [address] [address] [place] Chloride [Moles/Vol] 103 mmol/L Normal 98-107 [facility] Comment on above: Order Comment: Speci men Type: BLOOD SPECIMENOrdering Facility: [facility] Address: [address] [place], [place] [address] Performed By: #### 2 284-8, 2132-9, 35920-3, 3016-3 ####[facility] LABCLIA [id number] [address] [address] [place] CO2 [Moles/Vol] 23 mmol/L Normal 22-30 [facility] Comment on above: Order Comment: Speci men Type: BLOOD SPECIMENOrdering Facility: [facility] Address: [address] [place], [place] [address] Performed By: #### 2 284-8, 2132-9, 92289-0, 3016-3 ####[facility] LABCLIA [id number] [address] [address] [place] Creatinine [Mass/Vol] 0.98 mg/dL High 0.58-0.96 [facility] Comment on above: Order Comment: Speci men Type: BLOOD SPECIMENOrdering Facility: [facility] Address: [address] [place], [place] [address] Performed By: #### 2 284-8, 2132-9, 50219-7, 3016-3 ####[facility] LABIA [id number] [address] [address] [place] Creatinine and Glomerular filtration rate.predicted panel (S/P/Bld) 61 mL/min/1.73m??? Normal >=60 [facility] Comment on above: Order Comment: Speci men Type: BLOOD SPECIMENOrdering Facility: [facility] Address: [address] [place], [place] [address] Result Comment: Alecia mated Glomerular Filtration Rate (eGFR) is calculated using the 2020 CKD-EPI creatinine equation. This equation utilizes serum creatinine, sex, and age as parameters. The creatinine assay has traceable calibration to isotope dilution-mass spectrometry. Refer to KDIGO guidelines for clinical interpretation. In patients with unstable renal function, e.g. those with acute kidney injury, the eGFR may not accurately reflect actual GFR. Performed By: #### 2 284-8, 2-9, 73302-3, 6-3 ####[facility] LABCLIA [id number] [address] [address] [place] Glucose [Mass/Vol] 103 mg/dL High 74-99 [facility] Comment on above: Order Comment: Jack alberts Type: BLOOD SPECIMENOrdering Facility: [facility] Address: [address] [place] [address] Result Comment: The [place] Diabetes Association (ADA) provides guidance for cutoff values for fasting glucose and random glucose. The ADA defines fasting as no caloric intake for at least 8 hours. Fasting plasma glucose results between 100 to 125 mg/dL indicate increased risk for diabetes (prediabetes). Fasting plasma glucose results greater than or equal to 126 mg/dL meet the criteria for diagnosis of diabetes. In the absence of unequivocal hyperglycemia, results should be confirmed by repeat testing. In a patient with classic symptoms of hyperglycemia or hyperglycemic crisis, random plasma glucose results greater than or equal to 200 mg/dL meet the criteria for diagnosis of diabetes. Reference: Standards of Medical Care in Diabetes 2016, [place] Diabetes Association. Diabetes Care. 2016.39(Suppl 1). Performed By: #### 2 284-8, 2131-9, 40942-1, 6-3 ####[facility] LABCLIA [id number] [address] [address] [place] Potassium [Moles/Vol] 4.7 mmol/L Normal 3.7-5.1 [facility] Comment on above: Order Comment: Jack alberts Type: BLOOD SPECIMENOrdering Facility: [facility] Address: [address] [place] [id number] Performed By: #### 2 284-8, 2131-9, 05073-6, 6-3 ####[facility] LABCLIA [id number] [address] [address] [place] Protein [Mass/Vol] 6.7 g/dL Normal 6.3-8.0 [facility] Comment on above: Order Comment: Speci men Type: BLOOD SPECIMENOrdering Facility: [facility] Address: [address] [place], [place] [address] Performed By: #### 2 284-8, 2132-9, 18923-1, 3016-3 ####[facility] LABCLIA [id number] [address] [address] [place] Sodium [Moles/Vol] 140 mmol/L Normal 136-144 [facility] Comment on above: Order Comment: Speci men Type: BLOOD SPECIMENOrdering Facility: [facility] Address: [address] [place] [address] Performed By: #### 2 284-8, 2-9, 13851-1, 3016-3 ####[facility] LABCLIA [id number] [place] [address] [place] Urea nitrogen [Mass/Vol] 18 mg/dL Normal 7-21 [facility] Comment on above: Order Comment: Speci men Type: BLOOD SPECIMENOrdering Facility: [facility] Address: [address] [place] [address] Performed By: #### 2 284-8, 2131-9, 99582-1, 3016-3 ####[facility] LABCLIA [id number] [place] [id number] [place] Folate SerPl-mCncon 03-01-20 25 Folate [Mass/Vol] ng/mL Normal >4.7 [facility] Comment on above: Order Comment: Speci men Type: BLOOD SPECIMENOrdering Facility: [facility] Address: [address] [place] [address] Result Comment: A re sult of > 20 ng/mL is not necessarily indicative of a pathologic or treatable condition: it reflects a limitation of the test methodology. Assay reference range: 4.8 to 24.2 ng/mL. Suitable for detection of folate deficiency. Reference: Folate III (Folate III) [package insert V 1.0 Greek]. [facility], [place], [place]: June 2015. Performed By: #### 2 284-8, 2132-9, 65595-9, 3016-3 ####[facility] LABCLIA [id number] [address] [place] HbA1c (Bld)on 03-01-2025 Average glucose Estimated from glycated hemoglobin (Bld) [Mass/Vol] 120 mg/dL Normal [facility] Comment on above: Order Comment: Speci men Type: BLOOD SPECIMENOrdering Facility: [facility] Address: [address] [place] [address] Result Comment: eAG: (Estimated average glucose) is a calculated value from HgbA1c and is procurement representative of the average blood glucose level in the last 2-3 month period. Performed By: #### 5 5454-3 ####[facility] LABIA [id number] [address] [place] HbA1c (Bld) [Mass fraction] 5.8 % High 4.3-5.6 [facility] Comment on above: Order Comment: Speci men Type: BLOOD SPECIMENOrdering Facility: [facility] Address: [address] [place] [address] Result Comment: [place] Diabetes Association guidelines indicate that patients with HgbA1c in the range 5.7-6.4% are at increased risk for development of diabetes, and intervention by lifestyle modification may be beneficial. HgbA1c greater or equal to 6.5% is considered diagnostic of diabetes. Performed By: #### 5 5454-3 ####[facility] LABIA [id number] [address] [address] [facility] [place] Reagin and Treponema pallidu m IgG and IgM [Interp]on 03-01-2025 T. pallidum IgG+IgM IA Ql (S) Non-Reactive Normal Nonreactive [facility] Comment on above: Order Comment: Sandiei men Type: BLOOD SPECIMENOrdering Facility: [facility] Address: [address] [place] [address] Performed By: #### 7 3752-8 ####[facility] LABCLIA [id number] [place] [id number] [place] Reagin+T pallidum IgG+IgM Se rPl-Impon 03-01-2025 Reagin and Treponema pallidum IgG and IgM [Interp] Cannot exclude recent Treponemal infection if specimen collected within 7-10 days after appearance of suspect lesions or 2-3 weeks after an exposure. Clinical correlation is required. Normal [facility] Comment on above: Order Comment: Speci men Type: BLOOD SPECIMENOrdering Facility: [facility] Address: [address] [place] [address] Performed By: #### 7 3752-8 ####[facility] [id number] [place] [address] [place] TSH SerPl-aCncon 03-01-2025 TSH Qn 0.875 m[IU]/L Normal 0.270-4.200 [facility] Comment on above: Order Comment: Speci men Type: BLOOD SPECIMENOrdering Facility: [facility] Address: [address] [place] [address] Performed By: #### 2 284-8, 2132-9, 96261-1, 3016-3 ####[facility] [id number] [place] [address] [place] VITAMIN B1 (THIAMINE), WHOLE BLOODon 03-01-2025 Thiamine (Bld) [Moles/Vol] 249.9 nmol/L High 84.3-213.3 [facility] Comment on above: Order Comment: Speci men Type: BLOOD SPECIMENOrdering Facility: [facility] Address: [address] [place] [address] Result Comment: This assay measures the concentration of thiamine diphosphate (TDP), the primary active form of vitamin B1. Approximately 90 percent of vitamin B1 present in whole blood is TDP. Thiamine and thiamine monophosphate, which comprise the remaining 10 percent, are not measured. This test was developed, and its performance characteristics determined by the [facility] Department of Pathology and Laboratory Medicine. It has not been cleared or approved by the FDA. The [facility] Department of Pathology and Laboratory Medicine is regulated under CLIA as qualified to perform high-complexity testing. This test is used for clinical purposes. It should not be regarded as investigational or for research. Performed By: #### B 1WB ####[facility] LABCLIA [id number] [place] [id number] [place] [facility] VITAMIN D 25 HYDROXYon 03-01 25-hydroxyvitamin D3 [Mass/Vol] 49.8 ng/mL 31.0 - 80.0 ng/mL [facility] Comment on above: Classification of 25 [place] Vitamin D status: Deficiency/Insufficiency: < or = 30 ng/ml. Sufficiency/Optimal Levels: 31-80 ng/mL Toxicity: > 100 ng/mL. Test performed by chemiluminescent immunoassay. Vit B12 [facility] 025 Cobalamin (Vitamin B12) [Mass/Vol] 1432 pg/mL High 232-1245 [facility] Comment on above: Order Comment: Speci men Type: BLOOD SPECIMENOrdering Facility: [facility] Address: [address] [place] [address] Performed By: #### 2 284-8, 2132-9, 92480-4, 3016-3 ####[facility] LABIA [id number] [place] [address] [place] Cardiology Visit Reporton Cardiology Visit Report [facility] [address] [place] [address]. [address] [place], [place] [address] OFFICE VISIT Date of Service: 02/10/25 MR#: [id number] Acct: [id number] Name: ALIYAH LEACH Rep #: [id number] : 1955 Provider: Dr. Lonny nava MD Age/Sex: 70/F Location: [facility] Status: Signed HPI HPI History of Present Illness Surgical H P: No Details: The patient presents for evaluation of atrial fibrillation following a recent hospitalization. This is a 70-year-old female with a history of hypertension, hypothyroidism, and diabetes mellitus. She was hospitalized in November 2024 for urinary tract infection and urosepsis, during which she experienced a brief episode of atrial fibrillation that spontaneously converted to sinus rhythm. She was discharged on amiodarone and apixaban; amiodarone has since been discontinued. The patient reports no awareness of palpitations or irregular heart rhythm during her hospitalization or since discharge. She denies any symptoms suggestive of recurrent arrhythmia, such as dizziness, syncope, chest pain, or dyspnea. She also denies any bleeding or bruising while on apixaban. Additional patient data: Echocardiogram performed on October 26, 2024, demonstrated a left ventricular ejection fraction of 60%, normal biatrial size, and normal valvular function. Twelve-lead EKG performed in the office 02/10/25 shows sinus rhythm at 73 bpm, inferior Q waves, normal conduction intervals, and a normal axis. Problem list: Atrial fibrillation, CHADS VASC score of 4 (female, age >65, hypertension, diabetes). Brief episode occurred in the setting of urosepsis. The patient is maintained on apixaban and was briefly on amiodarone. ROS: CONSTITUTIONAL: Fatigue positive (during October and November illness), Fever positive (during October and November illness) CARDIOVASCULAR: Chest pain negative, Palpitations negative, Edema negative, Pain while walking negative HEMATOLOGIC: Easily bleeds negative, Easily bruises negative RESPIRATORY: Cough negative, Shortness of breath negative, Wheezing negative PE: GENERAL APPEARANCE: The patient is alert, oriented, and conversant with normal speech. She is seated comfortably and demonstrates no visible distress during the examination. LUNGS: On auscultation, breath sounds are clear bilaterally. No adventitious sounds are appreciated. Respiratory effort appears normal. CARDIAC: Cardiac auscultation reveals a regular rhythm without murmurs. No gallops or rubs are noted. There is no mention of peripheral edema. NEUROLOGICAL: The patient demonstrates normal speech and is fully oriented. No gross motor or coordination deficits are observed. PSYCHIATRIC: Mood and affect are appropriate. The patient engages in conversation and demonstrates appropriate behavior throughout the encounter. 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 [employer] Required: No Accompanied by: Self Is patient in pain?: No Allergies Penicillins (PCN) Allergy (Verified 02/10/25 13:05) Swelling tolterodine tartrate (From Detrol) Allergy (Verified 02/10/25 13:05) Swelling Medications ???Medication ???Instructions ???Recorded ???Confirmed ???Type multivitamin,tr-lutd-ppsj rals 27 1 tab PO DAILY SUPPLEMENT 12/21/14 02/10/25 History mg-0.4 mg tablet cyanocobalamin (vitamin B-12) 2,500 mcg PO DAILY SUPPLEMENT 05/2602/10/25 History 2,500 mcg tablet fluoxetine 40 mg capsule 40 mg PO DAILY DEPRESSION 07/29/22 02/10/25 History levothyroxine 112 mcg tablet 112 mcg PO DAILY THYROID 07/29/22 02/10/25 History metformin 1,000 mg tablet 1,000 mg PO BID DM 07/29/22 History pravastatin 40 mg tablet 40 mg PO QHS CHOLESTEROL 07/29/22 02/10/25 History apixaban 5 mg tablet 5 mg PO BID 11/28/24 02/10/25 Hist ory cholecalciferol (vitamin D3) 125 125 mcg PO QDAY 11/28/24 02/10/25 History mcg (5,000 unit) capsule dulaglutide 1.5 mg/0.5 mL 1.5 mg subcut QWEEK 11/28/2402/10 History subcutaneous pen injector (Trulicity) losartan 25 mg tablet 25 mg PO BID 11/28/24 02/10/25 His tory magnesium oxide 420 mg tablet 420 mg PO BID 11/28/24 02/10/25 Hi story metoprolol succinate 25 mg 25 mg PO QDAY 11/28/24 02/10/25 Hi story tablet,extended release 24 hr vit C 250 mg-vit E 90 mg-zinc 40 1 tab PO BID 11/28/24 02/10/25 His tory mg-copper 1 zy-qgimtw-kmxhkg capsule (PreserVision AREDS-2) Have you fallen in the past year?: Yes [facility] Medical History ... Normal [facility] SCREENING W TOMOon 01-30 ISAMAR SCREENING W CONRADO * * *Final Report* * * DATE OF EXAM: Jan 30 2025 1:59PM LUANNE 0582 - ISAMAR SCREENING W CONRADO / PROCEDURE REASON: Encounter for screening mammogram for breast cancer * * * * Physician Interpretation * * * * RESULT: [facility] [address] [place] [address] #[id number] - ISAMAR SCREENING W CONRADO HISTORY: 70 year-old patient presents for screening. Patient is asymptomatic in both breasts. Patient states no personal history of breast cancer. The patient has a family history of breast cancer. COMPARISON STUDIES: The present examination has been compared to prior imaging studies dated 07/26/2019 (mammogram), 08/14/2020 (mammogram), 08/14/2021 (mammogram), 10/02/2022 (mammogram) and 10/14/2023 (mammogram). MAMMOGRAM TECHNIQUE: The study was acquired using full field digital technology and interpreted from soft copy. Digital Breast Tomosynthesis (DBT) images were obtained and used to assist in the interpretation of this examination. MAMMOGRAM FINDINGS: There are scattered areas of fibroglandular density. No suspicious masses, calcifications or other abnormalities are seen in either breast. There are no significant interval changes. IMPRESSION: There is no mammographic evidence of malignancy in either breast. Routine screening mammogram is recommended. Annual mammogram will be due in 1 year. BI-RADS Category 1: Negative RISK: Based on the Tyrer-Cuzick (TC) risk assessment model, this patient has a 5.4% lifetime risk of developing breast cancer, meaning they are at average risk for developing breast cancer. However, this is only an estimate based on available history provided on the patient's questionnaire. We encourage all patients to talk with their providers about these results, further recommendations for managing breast health, and appropriate supplemental screening options if the patient has dense breast tissue. Interpreting Radiologist: Patricia Crawford M.D. Electronically signed on: 02/01/2025 Endoscopy Nurse: ARACELI Transcribe Date/Time: Jan 30 2025 1:29P Dictated by: PATRICIA CRAWFORD MD This examination was interpreted and the report reviewed and electronically signed by: PATRICIA CRAWFORD MD on Feb 01 2025 8:36AM EST [id number] [facility] CNOVon 01-24-2025 CNOV [facility] CNPNon 01-23-2025 CNPN Telephone (GSTNOR) ----- ALIYAH LEACH ([id number]) 1955 F Date Time Provider Department 01/23/25 JACQUE REVELES During your visit today, we recorded the following information about you: Bhupendra Reaves 01/23/2025 2:39 PM Signed Per patient, she needs a colonoscopy. The patient had an office visit on November 29 2024 and it was discussed at that time. Tavia Conway, RN 01/23/2025 3:00 PM Signed Patient calling in to ask for orders for colonoscopy Per [facility], 11/2024 - Recommended waiting for urology clearance before scheduling the next colonoscopy due to recent hospitalization and upcoming cystoscopy. - Plan to perform the colonoscopy in a hospital setting at a [facility] facility, pt prefers [place] vs [facility] - Discussed bowel prep: patient to hold Trulicity one week before the procedure, follow a two-day clear liquid diet, and use one gallon of Golytely. She had cystoscopy 12/22/24 Please advise Jacque Reveles PA-C 01/23/2025 6:09 PM Addendum Colonoscopy order placed. Plan for Golytely prep with 2 day clear liquids please reach out to pt to advise thank you BEATA Black Kristen, PA-C 01/23/2025 6:10 PM Addendum COLONOSCOPY BOWEL PREPARATION INSTRUCTIONS MiraLAX? Your doctor has scheduled you for a colonoscopy. To have a successful colonoscopy, you must have a clean colon, that is empty. A clean colon allows your doctor to see the entire colon AND diagnose issues like polyps or cancer. For doctors, a clean colon is like driving on a soni day; a dirty colon like driving in a storm. It is very important that you follow these instructions exactly, or your colonoscopy may not be as effective, could be canceled, and you may need to do the bowel prep and colonoscopy again. TRANSPORTATION REQUIREMENTS You are receiving IV sedation. For your safety, a responsible adult escort must accompany you to and from your procedure: Your adult escort MUST be present with you at check-in for your colonoscopy. Your adult escort MUST remain in the endoscopy area until you are discharged. Your adult escort MUST transport you home once you are discharged. You are NOT allowed to operate any form of transportation (i.e. drive a car, bicycle, etc) or leave the Endoscopy Center ALONE. It is not safe to do so. If you cannot meet these requirements, your procedure will be canceled. MEDICATION REQUIREMENTS For your safety, certain medications will need to be stopped or adjusted before you can have your procedure: BLOOD THINNERS: If you take blood thinners, such as Coumadin (warfarin), Plavix (clopidogrel), Ticlid (ticlopidine hydrochloride), Agrylin (anagrelide), Xarelto (Rivaroxaban), Pradaxa (Dabigatran), Eliquis (Apixaban), or Effient (Prasugrel), contact the physician who is prescribing these medications at least 2 weeks prior to your procedure to discuss any necessary adjustments. DIABETES: If you take medications for diabetes, your dosage may need to be adjusted. If you are being treated for diabetes with insulin, diabetic pills, or other injectable medications do not take your REGULAR dose after midnight on the day of your procedure. If you are taking any other types of insulin such as Lantus, Humalog, NPH (long-acting insulin), or 70/30 insulin, take half your normal dose the day before your procedure. DIABETES/WEIGHT MANAGEMENT: If you take medications for weight-loss, your dosage may need to be adjusted Contact the doctor who prescribes this medication for further instructions. If you take medications for weight-loss like semaglutide (Ozempic, Wegovy, Rybelsus), dulaglutide (Trulicity), liraglutide (Victoza, Saxenda), exenatide (Byetta, Bydureon), or lixisenatide (Adylyxin), stop your medication 1 week prior to your procedure. If you take medications like canagliflozin (Invokana), dapagliflozin (Farxiga, Forxiga), empagliflozin (Jardiance), stop your medication 3 days prior to your procedure. If you take ertugliflozin (Steglatro) stop your medication 4 days prior to your procedure. IRON: If you take iron pills, STOP them 1 week BEFORE your procedure, may resume after. OTHER MEDS: May take all other medications (including aspirin, antibiotics, water pills / diuretics like Lasix or Metolozone, blood pressure meds, etc.) at their usual scheduled time with water. DIET REQUIREMENTS The day before your colonoscopy, you may have a clear liquid diet (see below). The day of your colonoscopy, you may continue a clear liquid diet until 3 hours before your colonoscopy. Within 3 hours of your colonoscopy, take only any medications (as above) with a sip of water. Clear Liquid Diet Broth (chicken, beef or vegetable broth or bullion. Just the broth, no solids). Water Coffee or Tea (NO milk or creamer), but sugar and sugar substitutes are allowed. Clear liquids including clear (more content not included)... Normal [facility] BRIEF OP NOTon 12-22-2024 BRIEF OP NOT Normal IR NEPHROSTOGRAMon IR NEPHROSTOGRAM Normal Basic metabolic 2000 panelon 12-19-2024 Anion gap [Moles/Vol] 14 mmol/L Normal 8-15 [facility] Comment on above: Order Comment: Speci men Type: BLOOD SPECIMENOrdering Facility: [facility] Address: [address] [place] [address] Performed By: #### 2 4321-2 ####[facility] LABCLIA [id number] [place] [address] [place] Calcium [Mass/Vol] 9.3 mg/dL Normal 8.5-10.2 [facility] Comment on above: Order Comment: Speci men Type: BLOOD SPECIMENOrdering Facility: [facility] Address: [address] [place] [address] Performed By: #### 2 4321-2 ####[facility] LABCLIA [id number] [place] [id number] [place] Chloride [Moles/Vol] 101 mmol/L Normal 98-107 [facility] Comment on above: Order Comment: Speci men Type: BLOOD SPECIMENOrdering Facility: [facility] Address: [address] [place] [address] Performed By: #### 2 4321-2 ####[facility] LABCLIA [id number] [place] [id number] [place] CO2 [Moles/Vol] 22 mmol/L Normal 22-30 [facility] Comment on above: Order Comment: Speci men Type: BLOOD SPECIMENOrdering Facility: [facility] Address: [address] [place] [address] Performed By: #### 2 4321-2 ####[facility] LABCLIA [id number] [place] [address] [place] Creatinine [Mass/Vol] 0.85 mg/dL Normal 0.58-0.96 [facility] Comment on above: Order Comment: Speci men Type: BLOOD SPECIMENOrdering Facility: [facility] Address: [address] [place] [address] Performed By: #### 2 4321-2 ####[facility] LABIA [id number] [address] [place] Creatinine and Glomerular filtration rate.predicted panel (S/P/Bld) 73 mL/min/1.73m??? Normal >=60 [facility] Comment on above: Order Comment: Speci men Type: BLOOD SPECIMENOrdering Facility: [facility] Address: [address] [place] [address] Result Comment: Alecia mated Glomerular Filtration Rate (eGFR) is calculated using the 2020 CKD-EPI creatinine equation. This equation utilizes serum creatinine, sex, and age as parameters. The creatinine assay has traceable calibration to isotope dilution-mass spectrometry. Refer to KDIGO guidelines for clinical interpretation. In patients with unstable renal function, e.g. those with acute kidney injury, the eGFR may not accurately reflect actual GFR. Performed By: #### 2 4321-2 ####[facility] LABCLIA [id number] [facility] [address] [address] [place] Glucose [Mass/Vol] 142 mg/dL High 74-99 [facility] Comment on above: Order Comment: Speci men Type: BLOOD SPECIMENOrdering Facility: [facility] Address: [address] [place] [address] Result Comment: The [place] Diabetes Association (ADA) provides guidance for cutoff values for fasting glucose and random glucose. The ADA defines fasting as no caloric intake for at least 8 hours. Fasting plasma glucose results between 100 to 125 mg/dL indicate increased risk for diabetes (prediabetes). Fasting plasma glucose results greater than or equal to 126 mg/dL meet the criteria for diagnosis of diabetes. In the absence of unequivocal hyperglycemia, results should be confirmed by repeat testing. In a patient with classic symptoms of hyperglycemia or hyperglycemic crisis, random plasma glucose results greater than or equal to 200 mg/dL meet the criteria for diagnosis of diabetes. Reference: Standards of Medical Care in Diabetes 2016, [place] Diabetes Association. Diabetes Care. 2016.39(Suppl 1). Performed By: #### 2 4321-2 ####[facility] LABCLIA [id number] [facility] [address] [address] [place] Potassium [Moles/Vol] 4.3 mmol/L Normal 3.7-5.1 [facility] Comment on above: Order Comment: Speci men Type: BLOOD SPECIMENOrdering Facility: [facility] Address: [address] [place] [id number] Performed By: #### 2 4321-2 ####[facility] LABCLIA [id number] [facility] [id number] [place] [address] [place] Sodium [Moles/Vol] 137 mmol/L Normal 136-144 [facility] Comment on above: Order Comment: Speci men Type: BLOOD SPECIMENOrdering Facility: [facility] Address: [address] [place] [address] Performed By: #### 2 4321-2 ####[facility] LABIA [id number] [place] [address] [place] Urea nitrogen [Mass/Vol] 18 mg/dL Normal 7-21 [facility] Comment on above: Order Comment: Speci men Type: BLOOD SPECIMENOrdering Facility: [facility] Address: [address] [place] [address] Performed By: #### 2 4321-2 ####[facility] LABIA [id number] [place] [address] [place] CBC panel Auto (Bld)on 12-19 Erythrocyte distribution width (RBC) [Ratio] 14.3 % Normal 11.5-15.0 [facility] Comment on above: Order Comment: Speci men Type: BLOOD SPECIMENOrdering Facility: [facility] Address: [address] [place] [address] Performed By: #### 5 8410-2 ####[facility] LABIA [id number] [place] [address] [place] Hematocrit (Bld) [Volume fraction] 35.8 % Low 36.0-46.0 [facility] Comment on above: Order Comment: Speci men Type: BLOOD SPECIMENOrdering Facility: [facility] Address: [address] [place] [address] Performed By: #### 5 8410-2 ####[facility] LABIA [id number] [place] [id number] [place] Hemoglobin (Bld) [Mass/Vol] 11.2 g/dL Low 11.5-15.5 [facility] Comment on above: Order Comment: Speci men Type: BLOOD SPECIMENOrdering Facility: [facility] Address: [address] [place] [address] Performed By: #### 5 8410-2 ####[facility] LABIA [id number] [place] [address] [place] MCH (RBC) [Entitic mass] 27.4 pg Normal 26.0-34.0 [facility] Comment on above: Order Comment: Speci men Type: BLOOD SPECIMENOrdering Facility: [facility] Address: [address] [place] [address] Performed By: #### 5 8410-2 ####[facility] LABIA [id number] [place] [address] [place] MCHC (RBC) [Mass/Vol] 31.3 g/dL Normal 30.5-36.0 [facility] Comment on above: Order Comment: Speci men Type: BLOOD SPECIMENOrdering Facility: [facility] Address: [address] [place] [address] Performed By: #### 5 8410-2 ####[facility] [id number] [place] [address] [place] MCV (RBC) [Entitic vol] 87.5 fL Normal 80.0-100.0 [facility] Comment on above: Order Comment: Speci men Type: BLOOD SPECIMENOrdering Facility: [facility] Address: [address] [place] [address] Performed By: #### 5 8410-2 ####[facility] [id number] [place] [address] [place] Nucleated RBC (Bld) [#/Vol] 10*3/uL Normal <0.01 [facility] Comment on above: Order Comment: Speci men Type: BLOOD SPECIMENOrdering Facility: [facility] Address: [address] [place] [address] Performed By: #### 5 8410-2 ####[facility] [id number] [place] [address] [place] Platelet mean volume (Bld) [Entitic vol] 9.5 fL Normal 9.0-12.7 [facility] Comment on above: Order Comment: Speci men Type: BLOOD SPECIMENOrdering Facility: [facility] Address: [address] [place] [address] Performed By: #### 5 8410-2 ####[facility] LABIA [id number] [place] [address] [place] Platelets (Bld) [#/Vol] 517 10*3/uL High 150-400 [facility] Comment on above: Order Comment: Speci men Type: BLOOD SPECIMENOrdering Facility: [facility] Address: [address] [place] [address] Performed By: #### 5 8410-2 ####[facility] LABIA [id number] [place] [address] [place] RBC (Bld) [#/Vol] 4.09 10*6/uL Normal 3.90-5.20 [facility] Comment on above: Order Comment: Speci men Type: BLOOD SPECIMENOrdering Facility: [facility] Address: [address] [place] [address] Performed By: #### 5 8410-2 ####[facility] LABIA [id number] [place] [id number] [place] WBC (Bld) [#/Vol] 12.73 10*3/uL High 3.70-11.00 [facility] Comment on above: Order Comment: Speci men Type: BLOOD SPECIMENOrdering Facility: [facility] Address: [address] [place] [address] Performed By: #### 5 8410-2 ####[facility] LABIA [id number] [address] [address] [place] CNOVon 12-19-2024 CNOV Office Visit (FAMPWS ) ----- ALIYAH LEACH ([id number]) 1955 F Date Time Provider Department 12/19/24 2:00 PM BOBBY GRADY During your visit today, we recorded the following information about you: Pulse Blood pressure Weight 83/minute 104/62 103.9 kg Bobby Grady MD 12/19/2024 2:25 PM Signed Patient presents with: Follow Up HPI: Patient presents today for office visit for follow up from her last ov: Is feeling better but not perfect Stll fatigued. Had cystoscopy performed. Gets her nephrostomy tube removed soon. Therapy is over. Has one more vn visit. Using a cane. No falls. No chest pain or shortness of breath. No edema. No fever. Last A1c was 6.0 Has labs ordered per urology. Sugars have been good. Following with cardiology. They are considering ablation. Still on eliquis. No palpitations. Note was copied and pasted, without alteration from last ov: Admitted 10/23-11/10/24-TCM call completed. [facility] appt is coming up. Urology is not seeing anybody yet. Has seen Dr. Osborn in [place]. They had said in the hospital her left kidney was small, however her gfr is great. Has stent in place. They will be following with them. [facility] is following with therapies. Overall feeling well. Living with her daughter currently. She is using a walker. They will determine when it is ok to move home. No chest pain or shortness of breath. No new edema. No palpitations. Bp and heart rate is good. Sugars have been great. No fever or chills. Tubes are clear. Blisters are doing well that were around her tubes. Appetite is good. Has labs and urine ordered by Dr Osborn MEDICATIONS: Current Outpatient Medications Medication Sig apixaban (ELIQUIS) 5 mg tab(s) Take 1 tablet by mouth two times a day. magnesium oxide (MAG-OX) 400 mg (241.3 mg magnesium) tablet Take 1 tablet by mouth two times a day. metoprolol succinate ER (TOPROL XL) 25 mg 24 hr tablet Take 1 tablet by mouth once daily. losartan (COZAAR) 25 mg tablet Take 1 tablet by mouth two times a day. melatonin 3 mg capsules Take 3 mg by mouth daily at bedtime. Last dose 12/07/24 for OR 12/12/24 FLUoxetine (PROZAC) 40 mg capsule Take 1 capsule by mouth once daily. metFORMIN (GLUCOPHAGE) 1,000 mg tablet Take 1 tablet by mouth two times a day with meals. dulaglutide (TRULICITY) 1.5 mg/0.5 mL pen injector Inject 1.5 mg subcutaneously one time a week. Inject once per week. Discard Pen After levothyroxine (SYNTHROID) 112 mcg tablet Take 1 tablet by mouth once daily. pravastatin (PRAVACHOL) 40 mg tablet Take 1 tablet by mouth daily at bedtime. vit C,C-Tq-yuepa-lutein-zeaxa n (PRESERVISION AREDS-2) 250-90-40-1 mg Take 1 capsule by mouth twice daily with meals. CYANOCOBALAMIN/COBAMAMIDE (B12 SUBLINGUAL) Dissolve 1 tablet under the tongue once daily. Last dose 12/07/24 for OR 12/12/24 Cholecalciferol, Vitamin D3, 125 mcg (5,000 unit) cap Take 125 Units by mouth once daily. Last dose 12/07/24 for OR 12/12/24 multivitamin ORAL tablet Take 1 tablet by mouth once daily. Last dose 12/07/24 for OR 12/12/24 nystatin (MYCOSTATIN) cream Apply to affected area two times a day. (Patient taking differently: Apply to affected area two times a day. PACC 12/08/24: Course of therapy complete) blood sugar diagnostic (ACCU-CHEK ROBIN) test strip Use as instructed Lancets (ACCU-CHEK SOFTCLIX LANCETS) lancets Once daily. 250.40 Blood-Glucose Meter (ACCU-CHEK ROBIN PLUS METER) misc 1 Each once daily. No current facility-administered medications for this visit. ALLERGIES: ALLERGIES Allergen Reactions Detrol [Tolterodine* Rash Penicillins Rash Tolerating piperacillin/tazobactam at [facility] in October 2024. AD PharmD PAST MEDICAL HISTORY Diagnosis Date Ambulates with cane Atrial fibrillation (HCC) 2023 Dr. Ring. Diagnosed when admitted for kidney stone. 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 Osborn. Has had kidney stones on right and left. 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 Normal [facility] ANES POSTPROC EVALon 025 ANES POSTPROC EVAL [facility] ANES PRE-OPon 12-12-2024 ANES PRE-OP [facility] CALCULI ANALYSISon Calculus analysis [Interp] [facility] Comment on above: Order Comment: Speci men Type: CALCULUS SPECIMENOrdering Facility: [facility] Address: [address] [place] [address] Result Comment: Comm ent:This test was developed, and its performance characteristics determined by the [facility] Department of Pathology and Laboratory Medicine. It has not been cleared or approved by the FDA. The [facility] Department of Pathology and Laboratory Medicine is regulated under CLIA as qualified to perform high-complexity testing. This test is used for clinical purposes. It should not be regarded as investigational or for research. Performed By: #### C SA ####[facility] LABCLIA [id number] [place] [address] [place] CALCULUS COLOR BROWN AND WHITE [facility] Comment on above: Order Comment: Speci men Type: CALCULUS SPECIMENOrdering Facility: [facility] Address: [address] [place] [address] Performed By: #### C SA ####[facility] LABCLIA [id number] [place] [address] [place] CALCULUS COMPOSITION 1 60% Calcium Oxala te Monohydrate [facility] Comment on above: Order Comment: Speci men Type: CALCULUS SPECIMENOrdering Facility: [facility] Address: [address] [place] [address] Performed By: #### C SA ####[facility] LABCLIA [id number] [place] [address] [place] CALCULUS COMPOSITION 2 30% Calcium Oxala te Dihydrate [facility] Comment on above: Order Comment: Speci men Type: CALCULUS SPECIMENOrdering Facility: [facility] Address: [address] [place] [address] Performed By: #### C SA ####[facility] LABCLIA [id number] [place] [address] [place] CALCULUS COMPOSITION 3 10% Minor Components [facility] Comment on above: Order Comment: Speci men Type: CALCULUS SPECIMENOrdering Facility: [facility] Address: [address] [place] [address] Performed By: #### C SA ####[facility] LABCLIA [id number] [place] [address] [place] CALCULUS SIZE AND WT Multiple pieces. 0. 0328 GRAMS [facility] Comment on above: Order Comment: Speci men Type: CALCULUS SPECIMENOrdering Facility: [facility] Address: [address] [place] [address] Performed By: #### C SA ####[facility] LABCLIA [id number] [place] [address] [place] CALCULUS TYPE Right renal Normal Comment on above: Order Comment: Speci men Type: CALCULUS SPECIMENOrdering Facility: [facility] Address: [address] [facility] [address] [place] [address] Performed By: #### C ####[facility] LABCLIA [id number] CATIE MCINTOSH [id number] [place] [address] [place] CNPNon 12-12-2024 CNPN [facility] HISTORY PHYSICALon HISTORY PHYSICAL Normal NURSING PROGon 12-12-2024 NURSING PROG [facility] OPERATIVE NOon 12-12-2024 OPERATIVE NO [facility] CNPNon 12-07-2024 CNPN [facility] 12 Lead EKG performed by [facility] on 12-05-2024 12 Lead EKG performed by [facility] [address] [place] [place] [address] 12 Lead EKG performed by [facility] 12/05/24830 MR#: [id number] Acct: [id number] Name: ALIYAH LEACH Rep #: [id number] : 1955 69 From: Wily Wen MD Attending Dr: Dr. Wily Wen MD Status: DEP AMB Ordering Dr: Wily Wen MD Date: 12/05/24 Location: [facility] Sex: F C Admitted: [facility]/12 Lead EKG performed by [facility] ECG Report Interpretation -Sinus Rhythm Low voltage in precordial leads. ABNORMAL Electronically signed on 01/18/2025 at 13:[address] Wily Wen [employer] Version [id number] 01/18/25 1337 Date Wily Wen MD CC: Dr. Bobby Grady MD Date Dictated: 12/05/24830 Date Transcribed: 12/05/24830 Endoscopy Nurse: AR Signed Normal [facility] Cardiology Visit Reporton Cardiology Visit Report [facility] [address] [place] [address] OFFICE VISIT Date of Service: 12/05/24 MR#: [id number] Acct: [id number] Name: ALIYAH LEACH Rep #: [id number] : 1955 Provider: Dr. Wily Wen MD Age/Sex: 69/F Location: [facility] Status: Signed HPI HPI History of Present Illness Details: This lady has history of diabetes mellitus, hypothyroidism and hypertension. She was admitted to an outside hospital with renal colic, UTI and urosepsis. During course of her hospitalization, she was noted to go into atrial fibrillation. She apparently converted on her own to sinus rhythm. She was discharged home on anticoagulation and on amiodarone. She had an echocardiogram done. It showed normal left ventricular systolic function. No major valvular abnormalities were noted. Patient denies any palpitations. She denies any chest pains. Some shortness of breath with exertion. Denies orthopnea or PND. No ankle edema. No history of CVA or TIA. No bleeding disorders. Tolerating apixaban well. Patient is scheduled to undergo lithotripsy for her renal stones next week. Intake Vital Signs 10/23/24 01:09 12/05/24 08:29 Height 5 ft 4 in 5 ft 4 in Weight: 233 lb BMI 39.9 BP 103/64 Blood Pressure Location Lt brachial Position Sitting Respiration 16 Pulse 70 Pulse Source NIBP Intake Visit Reasons: S/P OLESYA / (OLESYA) [employer] Operator Required: No Accompanied by: Daughter Is patient in pain?: No Allergies Penicillins (PCN) Allergy (Verified 12/05/24 11:18) Swelling tolterodine tartrate (From Detrol) Allergy (Verified 12/05/24 11:18) Swelling Medications ???Medication ???Instructions ???Recorded ???Confirmed ???Type multivitamin,pg-higf-fmfy rals 27 1 tab PO DAILY SUPPLEMENT 12/21/14 12/05/24 History mg-0.4 mg tablet cyanocobalamin (vitamin B-12) 2,500 mcg PO DAILY SUPPLEMENT 05/2612/05/24 History 2,500 mcg tablet fluoxetine 40 mg capsule 40 mg PO DAILY DEPRESSION 07/29/22 12/05/24 History glimepiride 4 mg tablet 4 mg PO DINNER DM 07/29/22 5 History levothyroxine 112 mcg tablet 112 mcg PO DAILY THYROID 07/29/22 12/05/24 History metformin 1,000 mg tablet 1,000 mg PO BID DM 07/29/22 History pravastatin 40 mg tablet 40 mg PO QHS CHOLESTEROL 07/29/22 12/05/24 History melatonin 3 mg tablet,extended 3 mg PO QHS 10/23/24 12/05/24 Hist ory release (Meladox) Lactobacillus rhamnosus GG 20 cell PO 11/28/24 12/05/24 History billion cell capsule (Probiotic Digestive Care) amiodarone 200 mg tablet 200 mg PO BID 11/28/24 12/05/24 Hi story apixaban 5 mg tablet 5 mg PO BID 11/28/24 12/05/24 Hist ory cholecalciferol (vitamin D3) 125 125 mcg PO QDAY 11/28/24 12/05/24 History mcg (5,000 unit) capsule dulaglutide 1.5 mg/0.5 mL 1.5 mg subcut QWEEK 11/28/2412/05 History subcutaneous pen injector (Trulicity) losartan 25 mg tablet 25 mg PO BID 11/28/24 12/05/24 His tory magnesium oxide 420 mg tablet 420 mg PO BID 11/28/24 12/05/24 Hi story metoprolol succinate 25 mg 25 mg PO QDAY 11/28/24 12/05/24 Hi story tablet,extended release 24 hr omega-3 acid ethyl esters 1 gram 1 cap PO QDAY 11/28/24 12/05/24 Hi story capsule vit C 250 mg-vit E 90 mg-zinc 40 1 tab PO BID 11/28/24 12/05/24 His tory mg-copper 1 ca-hlurar-rofats capsule (PreserVision AREDS-2) Ejection fraction %: 60 Have you fallen in the past year?: Yes (2 incidents; no major injuries) [facility] Medical History CHAPITO (acute kidney injury) Atrial fibrillation with RVR Benign neoplasm of colon Depression Diabetes Diabetes mellitus Diarrhea Endometrial cancer Gall stones H/O cancer of uterus h/o cervical h/o colon cancer Hernia Hernia of abdominal cavity Hives HTN (hypertension) hypercholesterolemia Hypothyroidism Incontinence of urine Lactic acidosis Lightheadedness Obesity Psoriasis Right ureteral stone Severe sepsis UTI (urinary tract infection) Surgical History H/O colonoscopy History of bilateral knee replacement History of cataract removal with insertion of prosthetic lens History of laparoscopic cholecystectomy S/P appendectomy S/P colectomy S/P colonoscopy ( 06/23/18) S/P hysterectomy Family History Father Colon cancer Rectal cancer Mother Diabetes CVA (cerebral vascular accident) Renal failure Sister Hypertension Diabetes Cancer lymphoma, leukemia Brother Diabetes Aunt Cancer breast Social History household members: spouse and family Smoking Status: Never smoker al (more content not included)... [facility] Office Visit ([facility] ) ----- PAYALALIYAH BOND ([id number]) 1955 F Date Time Provider Department 11/29/24 3:05 PM JACQUE REVELES [facility] During your visit today, we recorded the following information about you: Pulse Blood pressure Weight Height 72/minute 118/72 104.3 kg 1.626 m Jacque Reveles PA-C 11/29/2024 3:47 PM Signed CHIEF COMPLAINT: Patient presents with: Change In Bowel Habits: Consistent fecal urgency after eating.Seen in the ER 10/23/24 HPI: Aliyah Sumit Gonzalezbeny is a 69 year old female with PMHx positive for endometrial, cervical, colon CA who presents for Change In Bowel Habits (Consistent fecal urgency after eating.Seen in the ER 10/23/24). Surg hx positive for aspen, partial colectomy, abdominal wall hernia repair. Admitted to [facility] 10/2024 due to severe sepsis, right sided ureteral stone. S/P IR nephrostomy tube w/ stent. Scheduled for further intervention w/ cystoscopy later this month 12/12. Patient reports experiencing frequent bowel movements, often within 45 minutes of eating, described as flushing through with mucoid stools and very small solid stools, approximately the size of her little finger. She denies any hematochezia or melena. Since a recent hospitalization for sepsis, she notes that her bowel movements have become more normal, with stools resembling a Vance Stool Score of 5-6, described as loose and fluffy. She had a formed stool yesterday, which she refers to as her dump day, characterized by multiple bowel movements in a short period. She denies any abdominal pain, unintentional weight loss, nausea, or vomiting. She also denies regular heartburn, acid reflux, or indigestion. Patient has been compliant with Eliquis. She is no longer taking Lovaza and denies using any ysla-yvp-voumfce medications such as Advil, ibuprofen, Aleve, or Excedrin. Patient has a history of lactose intolerance and avoids dairy products, though she occasionally consumes a sundae. Past Diagnostic Results: - Colonoscopy (2021): Performed by Dr. Robert, recommended follow-up in [address] abd 10/2024 CT/Abdomen/Pelvis W IV Cont ONLY IMPRESSION: OBSTRUCTING 9 MM CALCULUS IN THE RIGHT URETEROPELVIC JUNCTION WITH MILD HYDRONEPHROSIS. GAS IN THE URINARY BLADDER, WHICH CAN BE SEEN IN INFECTION. Reading Location: [id number] Colonoscopy 2021 Post-Op/Post-Procedure Diagnosis: 4 mm hepatic flexure polyp removed Possible anastomosis at 15 cm in the sigmoid 8 to 10 mm clean-based ulcer in the rectum, possible stercoral ulcer Biopsies taken to rule out microscopic colitis and viral etiology for ulcer Component FINAL DIAGNOSIS A. Colon, hepatic flexure, polyp: - Colonic mucosa with no significant histopathologic changes (see comment). B. Colon, descending, biopsy: - Colonic mucosa with no significant histopathologic changes. C. Rectum, ulcer, biopsy: - Ulcerated colonic mucosa with mild glandular architectural distortion and fibrinopurulent debris with embedded fecal material suggestive of stercoral ulcer. Latest Ref Rng 10/30/2024 WBC 3.70 - 11.00 k/uL 11.14 (H) RBC 3.90 - 5.20 m/uL 4.06 Hemoglobin 11.5 - 15.5 g/dL 11.3 (L) Hematocrit 36.0 - 46.0 % 35.4 (L) MCV 80.0 - 100.0 fL 87.2 MCH 26.0 - 34.0 pg 27.8 MCHC 30.5 - 36.0 g/dL 31.9 RDW-CV 11.5 - 15.0 % 13.9 Platelet Count 150 - 400 k/uL 270 MPV 9.0 - 12.7 fL 11.0 NRBC /100 WBC 0.0 Absolute nRBC <0.01 k/uL <0.01 Neut% % 69.0 Abs Neut (ANC) 1.45 - 7.50 k/uL 7.69 (H) Lymph% % 17.0 Abs Lymph 1.00 - 4.00 k/uL 1.89 [place]% % 8.[address] [place] <0.87 k/uL 0.89 (H) Eosin% % 1.0 Abs Eosin <0.46 k/uL 0.11 Baso% % 0.0 Abs Baso <0.11 k/uL 0.00 [place]% % 4.0 Myelo% % 1.0 Left Shift Present Platelet Estimate Adequate Red Cell Morph Reviewed: unremarkable Polychromasia Slight DTYPE Manual Magnesium 1.6 - 2.6 mg/dL 1.9 Phosphorus 2.5 - 4.9 mg/dL 3.6 Record Review: [facility] / Outside records reviewed. 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 Normal [facility] CNPNon 11-29-2024 CNPN Telephone (FAMWS) ----- ALIYAH LEACH ([id number]) 1955 F Date Time Provider Department 11/29/24 [facility] During your visit today, we recorded the following information about you: Jacqueline Apodaca LPN 11/29/2024 10:52 AM Signed Pt calls to report she has had a pink bloody tinge in urine x 4 days. Pt reports she was on atb (Cipro x 7 days) at the time so thought after she finished atb the blood would be gone but this is not the case. Pt reports she does have a kidney stone (surgery scheduled for 12/12/24). Pt reports she has some intermittent cramping but no pain, fever. Pt is asking if she should do another round of atb or what would provider recommend. GIFTY Parisi William J, MD 11/29/2024 11:56 AM Signed Given the issues with her last culture. It was not fully sensitive to any oral antibiotics. Would recommend er eval. May need admitted or evaluated if having gross hematuIA Jacqueline Apodaca LPN 11/29/2024 1:00 PM Signed Pt notified of dr's recommendation. Pt voiced understanding. Jacqueline Apodaca LPN Allergies As of Date: 11/29/2024 Noted Allergy Reaction DETROL (TOLTERODINE TARTRATE) 08/08/2005 2 - Rash PENICILLINS 08/08/2005 2 - Rash Comments: Tolerating piperacillin/tazobactam at [facility] in October 2024. AD PharmD Date Reviewed: 11/25/2024 Reviewed by: Elvira Bell RN - Fully Assessed Reason for Visit: Hematuria [335] Prescriptions as of 11/29/2024 - magnesium oxide (MAG-OX) 400 mg (241.3 mg magnesium) tablet Take 1 tablet by mouth two times a day. - metoprolol succinate ER (TOPROL XL) 25 mg 24 hr tablet Take 1 tablet by mouth once daily. - nystatin (MYCOSTATIN) cream Apply to affected area two times a day. - losartan (COZAAR) 25 mg tablet Take 1 tablet by mouth two times a day. - apixaban (ELIQUIS) 5 mg tab(s) Take 1 tablet by mouth two times a day. - amiodarone (PACERONE) 200 mg tablet Take 1 tablet by mouth two times a day. Patient should start on November 03, 2024. - omega-3 acid ethyl esters (LOVAZA) 1 gram capsule Take 2 g by mouth two times a day. - melatonin 3 mg capsules Take 3 mg by mouth daily at bedtime. - FLUoxetine (PROZAC) 40 mg capsule Take 1 capsule by mouth once daily. - metFORMIN (GLUCOPHAGE) 1,000 mg tablet Take 1 tablet by mouth two times a day with meals. - dulaglutide (TRULICITY) 1.5 mg/0.5 mL pen injector Inject 1.5 mg subcutaneously one time a week. Inject once per week. Discard Pen After - levothyroxine (SYNTHROID) 112 mcg tablet Take 1 tablet by mouth once daily. - pravastatin (PRAVACHOL) 40 mg tablet Take 1 tablet by mouth daily at bedtime. - vit C,F-Ug-vkixl-lutein-zeaxa n (PRESERVISION AREDS-2) 250-90-40-1 mg Take 1 capsule by mouth twice daily with meals. - lactobacillus comb no.10 (PROBIOTIC) 20 billion cell cap Take 1 capsule by mouth once daily. Patient should start on November 02, 2024. - CYANOCOBALAMIN/COBAMAMIDE (B12 SUBLINGUAL) Dissolve 1 tablet under the tongue once daily. - Cholecalciferol, Vitamin D3, 125 mcg (5,000 unit) cap Take 125 Units by mouth once daily. - blood sugar diagnostic (ACCU-CHEK ROBIN) test strip Use as instructed - Lancets (ACCU-CHEK SOFTCLIX LANCETS) lancets Once daily. 250.40 - Blood-Glucose Meter (ACCU-CHEK ROBIN PLUS METER) misc 1 Each once daily. - multivitamin ORAL tablet Take 1 tablet by mouth once daily. Problem List As Of Date 11/29/2024 Noted Resolved Benign neoplasm of colon [D12.6] 09/09/2005 12/03/2016 History of malignant neoplasm of large intestin*09/09/2005 12/03/2016 Personal history of colonic polyps [Z86.0100] 09/09/2005 12/03/2016 MALIG NEOPL CERVIX UTERI [180] 12/31/2005 09/07/2007 Depressive disorder, not elsewhere classified [*12/31/2005 12/03/2016 Hypothyroidism [E03.9] 12/31/2005 ASA CLASS III [1003] 12/31/2005 12/03/2016 Type 2 diabetes mellitus without complication (*03/16/2007 01/10/2016 Malignant neoplasm of cervix uteri, unspecified*09/07/2007 12/03/2016 Hypertriglyceridemia [E78.1] 07/10/2009 Mixed Incontinence Urge and Stress (Male)(Femal*11/05/2009 Endometrial cancer [C54.1] 06/13/2011 12/25/2011 S/P hysterectomy with oophorectomy [Z90.710, Z9*06/22/2011 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] 07/14/2011 06/03/2012 Hyperlipidemia [E78.5] 01/21/2012 Diabetes mellitus (HCC) [E11.9] 02/20/2012 Endometrial cancer [C54.1] 11/01/2012 History of cervical cancer [Z85.41] 11/01/2012 History of colon cancer [Z85.038] 11/01/2012 Diabetic neuropathy (HCC) [E11.40] 02/22/2014 Type 2 diabetes mellitus with proteinuria or al*08/16/2014 04/23/2016 Urinary urgency [R39.15] 03/08/2015 12/03/2016 Frequency of micturition [R35.0] 03/08/2015 12/03/2016 Mixed incontinence [N39.46] 03/08/2015 Kidney stone on left side [N20.0] 03/08/2015 Recurrent major depression in partial remission*12/03/2016 Obesity, Class III, BMI >= 40 (morbid obes (more content not included)... Normal [facility] CNPNon 11-22-2024 CNPN Telephone (FAMPWS) ----- PAYALALIYAH BOND ([id number]) 1955 F Date Time Provider Department 11/22/24 [facility] During your visit today, we recorded the following information about you: Bobby Grady MD 11/22/2024 12:21 PM Signed Final culture came in. One of the bacteria is not tested. The other is mildly susceptible to cipro which is the only oral antibiotic it responds too. Finish cipro. If symptoms worsen or don't improve, let us know Leila Kan MA 11/22/2024 12:47 PM Signed Patient informed and verbalized understanding. Leila Kan MA Allergies As of Date: 11/22/2024 Noted Allergy Reaction DETROL (TOLTERODINE TARTRATE) 08/08/2005 2 - Rash PENICILLINS 08/08/2005 2 - Rash Comments: Tolerating piperacillin/tazobactam at [facility] in October 2024. AD PharmD Date Reviewed: 11/11/2024 Reviewed by: Elvira Bell RN - Fully Assessed Prescriptions as of 11/22/2024 - ciprofloxacin HCl (CIPRO) 250 mg tablet Take 1 tablet by mouth two times a day for 7 days. - magnesium oxide (MAG-OX) 400 mg (241.3 mg magnesium) tablet Take 1 tablet by mouth two times a day. - metoprolol succinate ER (TOPROL XL) 25 mg 24 hr tablet Take 1 tablet by mouth once daily. - nystatin (MYCOSTATIN) cream Apply to affected area two times a day. - losartan (COZAAR) 25 mg tablet Take 1 tablet by mouth two times a day. - apixaban (ELIQUIS) 5 mg tab(s) Take 1 tablet by mouth two times a day. - amiodarone (PACERONE) 200 mg tablet Take 1 tablet by mouth two times a day. Patient should start on November 03, 2024. - omega-3 acid ethyl esters (LOVAZA) 1 gram capsule Take 2 g by mouth two times a day. - melatonin 3 mg capsules Take 3 mg by mouth daily at bedtime. - FLUoxetine (PROZAC) 40 mg capsule Take 1 capsule by mouth once daily. - metFORMIN (GLUCOPHAGE) 1,000 mg tablet Take 1 tablet by mouth two times a day with meals. - dulaglutide (TRULICITY) 1.5 mg/0.5 mL pen injector Inject 1.5 mg subcutaneously one time a week. Inject once per week. Discard Pen After - levothyroxine (SYNTHROID) 112 mcg tablet Take 1 tablet by mouth once daily. - pravastatin (PRAVACHOL) 40 mg tablet Take 1 tablet by mouth daily at bedtime. - vit C,W-Pp-znbts-lutein-zeaxa n (PRESERVISION AREDS-2) 250-90-40-1 mg Take 1 capsule by mouth twice daily with meals. - lactobacillus comb no.10 (PROBIOTIC) 20 billion cell cap Take 1 capsule by mouth once daily. Patient should start on November 02, 2024. - CYANOCOBALAMIN/COBAMAMIDE (B12 SUBLINGUAL) Dissolve 1 tablet under the tongue once daily. - Cholecalciferol, Vitamin D3, 125 mcg (5,000 unit) cap Take 125 Units by mouth once daily. - blood sugar diagnostic (ACCU-CHEK ROBIN) test strip Use as instructed - Lancets (ACCU-CHEK SOFTCLIX LANCETS) lancets Once daily. 250.40 - Blood-Glucose Meter (ACCU-CHEK ROBIN PLUS METER) misc 1 Each once daily. - multivitamin ORAL tablet Take 1 tablet by mouth once daily. Problem List As Of Date 11/22/2024 Noted Resolved Benign neoplasm of colon [D12.6] 09/09/2005 12/03/2016 History of malignant neoplasm of large intestin*09/09/2005 12/03/2016 Personal history of colonic polyps [Z86.0100] 09/09/2005 12/03/2016 MALIG NEOPL CERVIX UTERI [180] 12/31/2005 09/07/2007 Depressive disorder, not elsewhere classified [*12/31/2005 12/03/2016 Hypothyroidism [E03.9] 12/31/2005 ASA CLASS III [1003] 12/31/2005 12/03/2016 Type 2 diabetes mellitus without complication (*03/16/2007 01/10/2016 Malignant neoplasm of cervix uteri, unspecified*09/07/2007 12/03/2016 Hypertriglyceridemia [E78.1] 07/10/2009 Mixed Incontinence Urge and Stress (Male)(Femal*11/05/2009 Endometrial cancer [C54.1] 06/13/2011 12/25/2011 S/P hysterectomy with oophorectomy [Z90.710, Z9*06/22/2011 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] 07/14/2011 06/03/2012 Hyperlipidemia [E78.5] 01/21/2012 Diabetes mellitus (HCC) [E11.9] 02/20/2012 Endometrial cancer [C54.1] 11/01/2012 History of cervical cancer [Z85.41] 11/01/2012 History of colon cancer [Z85.038] 11/01/2012 Diabetic neuropathy (HCC) [E11.40] 02/22/2014 Type 2 diabetes mellitus with proteinuria or al*08/16/2014 04/23/2016 Urinary urgency [R39.15] 03/08/2015 12/03/2016 Frequency of micturition [R35.0] 03/08/2015 12/03/2016 Mixed incontinence [N39.46] 03/08/2015 Kidney stone on left side [N20.0] 03/08/2015 Recurrent major depression in partial remission*12/03/2016 Obesity, Class III, BMI >= 40 (morbid obesity) *12/03/2016 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 [facility] ALIYAH LEACH ([id number]) 1955 F Date Time Provider Department 11/21/24 [facility] During your visit today, we recorded the following information about you: Bobby Grady MD 11/21/2024 8:47 AM Signed Urine appears infected with two main bacteria. The one is usually a little more resistant. Send over script for cipro Keira Cordon LPN 11/21/2024 10:53 AM Signed Phoned patient left detailed message with results, notes from Dr Grady on patient voicemail, rx sent to the pharmacy. Jennifer Frias RN 11/21/2024 11:32 AM Signed Patient notified of results and provider's instructions. Patient verbalizes understanding. Jennifer Frias RN Allergies As of Date: 11/21/2024 Noted Allergy Reaction DETROL (TOLTERODINE TARTRATE) 08/08/2005 2 - Rash PENICILLINS 08/08/2005 2 - Rash Comments: Tolerating piperacillin/tazobactam at [facility] in October 2024. AD PharmD Date Reviewed: 11/11/2024 Reviewed by: Elvira Bell, SANTO - Fully Assessed Reason for Visit: Results [95] Order(s):ciprofloxacin HCl (CIPRO) 250 mg tabletTake 1 tablet by mouth two times a day for 7 days.Disp: 14 tabletRfl: 0 Prescriptions as of 11/21/2024 - ciprofloxacin HCl (CIPRO) 250 mg tablet Take 1 tablet by mouth two times a day for 7 days. - nystatin (MYCOSTATIN) cream Apply to affected area two times a day. - losartan (COZAAR) 25 mg tablet Take 1 tablet by mouth two times a day. - apixaban (ELIQUIS) 5 mg tab(s) Take 1 tablet by mouth two times a day. - amiodarone (PACERONE) 200 mg tablet Take 1 tablet by mouth two times a day. Patient should start on November 03, 2024. - metoprolol succinate ER (TOPROL XL) 25 mg 24 hr tablet Take 1 tablet by mouth once daily. - magnesium oxide (MAG-OX) 400 mg (241.3 mg magnesium) tablet Take 1 tablet by mouth two times a day. - omega-3 acid ethyl esters (LOVAZA) 1 gram capsule Take 2 g by mouth two times a day. - melatonin 3 mg capsules Take 3 mg by mouth daily at bedtime. - FLUoxetine (PROZAC) 40 mg capsule Take 1 capsule by mouth once daily. - metFORMIN (GLUCOPHAGE) 1,000 mg tablet Take 1 tablet by mouth two times a day with meals. - dulaglutide (TRULICITY) 1.5 mg/0.5 mL pen injector Inject 1.5 mg subcutaneously one time a week. Inject once per week. Discard Pen After - levothyroxine (SYNTHROID) 112 mcg tablet Take 1 tablet by mouth once daily. - pravastatin (PRAVACHOL) 40 mg tablet Take 1 tablet by mouth daily at bedtime. - vit C,D-Zw-rtomx-lutein-zeaxa n (PRESERVISION AREDS-2) 250-90-40-1 mg Take 1 capsule by mouth twice daily with meals. - lactobacillus comb no.10 (PROBIOTIC) 20 billion cell cap Take 1 capsule by mouth once daily. Patient should start on November 02, 2024. - CYANOCOBALAMIN/COBAMAMIDE (B12 SUBLINGUAL) Dissolve 1 tablet under the tongue once daily. - Cholecalciferol, Vitamin D3, 125 mcg (5,000 unit) cap Take 125 Units by mouth once daily. - blood sugar diagnostic (ACCU-CHEK ROBIN) test strip Use as instructed - Lancets (ACCU-CHEK SOFTCLIX LANCETS) lancets Once daily. 250.40 - Blood-Glucose Meter (ACCU-CHEK ROBIN PLUS METER) misc 1 Each once daily. - multivitamin ORAL tablet Take 1 tablet by mouth once daily. Problem List As Of Date 11/21/2024 Noted Resolved Benign neoplasm of colon [D12.6] 09/09/2005 12/03/2016 History of malignant neoplasm of large intestin*09/09/2005 12/03/2016 Personal history of colonic polyps [Z86.0100] 09/09/2005 12/03/2016 MALIG NEOPL CERVIX UTERI [180] 12/31/2005 09/07/2007 Depressive disorder, not elsewhere classified [*12/31/2005 12/03/2016 Hypothyroidism [E03.9] 12/31/2005 ASA CLASS III [1003] 12/31/2005 12/03/2016 Type 2 diabetes mellitus without complication (*03/16/2007 01/10/2016 Malignant neoplasm of cervix uteri, unspecified*09/07/2007 12/03/2016 Hypertriglyceridemia [E78.1] 07/10/2009 Mixed Incontinence Urge and Stress (Male)(Femal*11/05/2009 Endometrial cancer [C54.1] 06/13/2011 12/25/2011 S/P hysterectomy with oophorectomy [Z90.710, Z9*06/22/2011 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] 07/14/2011 06/03/2012 Hyperlipidemia [E78.5] 01/21/2012 Diabetes mellitus (HCC) [E11.9] 02/20/2012 Endometrial cancer [C54.1] 11/01/2012 History of cervical cancer [Z85.41] 11/01/2012 History of colon cancer [Z85.038] 11/01/2012 Diabetic neuropathy (HCC) [E11.40] 02/22/2014 Type 2 diabetes mellitus with proteinuria or al*08/16/2014 04/23/2016 Urinary urgency [R39.15] 03/08/2015 12/03/2016 Frequency of micturition [R35.0] 03/08/2015 12/03/2016 Mixed incontinence [N39.46] 03/08/2015 Kidney stone on left side [N20.0] 03/08/2015 Recurrent major depression in partial remission*12/03/2016 Obesity, Class III, BMI >= 40 (morbid obesity) *12/03/2016 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 Normal [facility] Bacteria Ur Culton 5 Bacteria identified Cx Nom (U) ORGANISM ID: 1 >=100,000 CFU/ml Pseudomonas aeruginosa ORGANISM ID: 2 >=100,000 CFU/ml Enterococcus faecalis Cephalosporins, clindamycin, and TMP-SMX are not effective for the treatment of enterococcal infections. ORGANISM ID: 1 (PSEUDOMONAS AERUGINOSA) ANTIBIOTIC INTERPRETATION DAVID STATUS REFERENCE RANGE Cefepime S 8 F Susceptible <=8 , Intermediate >8 , Resistant >16 Meropenem S <=0.5 F Susceptible <=2 , Intermediate >2 , Resistant >4 Aztreonam I 16 F Susceptible <=8 , Intermediate >8 , Resistant >16 Piperacillin/Tazobac S 16 F Gentamicin R <=2 F Tobramycin S <=2 F Susceptible <=4 , Intermediate >4 , Resistant >8 Ciprofloxacin I 1 F Susceptible <=0.5 , Intermediate >.5 , Resistant >1 ORGANISM ID: 1 (PSEUDOMONAS AERUGINOSA) ANTIBIOTIC INTERPRETATION DAVID STATUS REFERENCE RANGE Amikacin S 4 F ORGANISM ID: 2 (ENTEROCOCCUS FAECALIS) ANTIBIOTIC INTERPRETATION DAVID STATUS REFERENCE RANGE Ampicillin S 1 F Susceptible <=8 , Resistant >8 The results of ampicillin predict the susceptibility to amoxicillin, amoxicillin-clavulanate, ampicillin-sulbactam and piperacillin-tazobactam. Vancomycin S 2 F Susceptible <=4 , Intermediate >4 , Resistant >16 Nitrofurantoin S <=16 F Susceptible <=32 , Intermediate >32 , Resistant >[address] [facility] Comment on above: Performed By: #### 6 30-4 #### [facility] CLIA [id number] [address] [place] CNPSheree 11-18-2024 CNPN Telephone (HCSIND) ----- ALIYAH LEACH ([id number]) 1955 F Date Time Provider Department 11/18/24 LIZ LOPEZ HCSIND During your visit today, we recorded the following information about you: Liz Lopez RN 11/18/2024 12:53 PM Signed Hello I am the home care nurse seeing this pt today for a routine visit. Pt c/o yeast infection rash to perineal area and burning with urination for 2 weeks. Pt denies fevers/n/v. States her urine is light yellow. VSS. Pt is wondering if there is anything that she can take for these symptoms please. Thank you Bobby Grady MD 11/18/2024 12:56 PM Signed Send urine and I called in cream. Thank you Bobby Grady MD 11/18/2024 12:56 PM Signed Addended by: BOBBY GRADY on: 11/18/2024 12:56 PM Modules accepted: Orders Allergies As of Date: 11/18/2024 Noted Allergy Reaction DETROL (TOLTERODINE TARTRATE) 08/08/2005 2 - Rash PENICILLINS 08/08/2005 2 - Rash Comments: Tolerating piperacillin/tazobactam at [facility] in October 2024. AD PharmD Date Reviewed: 11/11/2024 Reviewed by: Elvira Bell RN - Fully Assessed Reason for Visit: Home Care [4073] Cmt: Pt issues Primary Visit Diagnosis:Dysuria [R30.0] Order(s):URINALYSIS (WITH MICROSCOPIC) WITH CULTURE IF INDICATED [SQUACII] Order #: [id number] FUTURE nystatin (MYCOSTATIN) creamApply to affected area two times a day.Disp: 30 gRfl: 0 Prescriptions as of 11/18/2024 - nystatin (MYCOSTATIN) cream Apply to affected area two times a day. - apixaban (ELIQUIS) 5 mg tab(s) Take 1 tablet by mouth two times a day. - amiodarone (PACERONE) 200 mg tablet Take 1 tablet by mouth two times a day. Patient should start on November 03, 2024. - losartan (COZAAR) 25 mg tablet Take 1 tablet by mouth two times a day. - metoprolol succinate ER (TOPROL XL) 25 mg 24 hr tablet Take 1 tablet by mouth once daily. - magnesium oxide (MAG-OX) 400 mg (241.3 mg magnesium) tablet Take 1 tablet by mouth two times a day. - omega-3 acid ethyl esters (LOVAZA) 1 gram capsule Take 2 g by mouth two times a day. - melatonin 3 mg capsules Take 3 mg by mouth daily at bedtime. - FLUoxetine (PROZAC) 40 mg capsule Take 1 capsule by mouth once daily. - metFORMIN (GLUCOPHAGE) 1,000 mg tablet Take 1 tablet by mouth two times a day with meals. - dulaglutide (TRULICITY) 1.5 mg/0.5 mL pen injector Inject 1.5 mg subcutaneously one time a week. Inject once per week. Discard Pen After - levothyroxine (SYNTHROID) 112 mcg tablet Take 1 tablet by mouth once daily. - pravastatin (PRAVACHOL) 40 mg tablet Take 1 tablet by mouth daily at bedtime. - vit C,E-Dd-exybk-lutein-zeaxa n (PRESERVISION AREDS-2) 250-90-40-1 mg Take 1 capsule by mouth twice daily with meals. - lactobacillus comb no.10 (PROBIOTIC) 20 billion cell cap Take 1 capsule by mouth once daily. Patient should start on November 02, 2024. - CYANOCOBALAMIN/COBAMAMIDE (B12 SUBLINGUAL) Dissolve 1 tablet under the tongue once daily. - Cholecalciferol, Vitamin D3, 125 mcg (5,000 unit) cap Take 125 Units by mouth once daily. - blood sugar diagnostic (ACCU-CHEK ROBIN) test strip Use as instructed - Lancets (ACCU-CHEK SOFTCLIX LANCETS) lancets Once daily. 250.40 - Blood-Glucose Meter (ACCU-CHEK ROBIN PLUS METER) misc 1 Each once daily. - multivitamin ORAL tablet Take 1 tablet by mouth once daily. Problem List As Of Date 11/18/2024 Noted Resolved Benign neoplasm of colon [D12.6] 09/09/2005 12/03/2016 History of malignant neoplasm of large intestin*09/09/2005 12/03/2016 Personal history of colonic polyps [Z86.0100] 09/09/2005 12/03/2016 MALIG NEOPL CERVIX UTERI [180] 12/31/2005 09/07/2007 Depressive disorder, not elsewhere classified [*12/31/2005 12/03/2016 Hypothyroidism [E03.9] 12/31/2005 ASA CLASS III [1003] 12/31/2005 12/03/2016 Type 2 diabetes mellitus without complication (*03/16/2007 01/10/2016 Malignant neoplasm of cervix uteri, unspecified*09/07/2007 12/03/2016 Hypertriglyceridemia [E78.1] 07/10/2009 Mixed Incontinence Urge and Stress (Male)(Femal*11/05/2009 Endometrial cancer [C54.1] 06/13/2011 12/25/2011 S/P hysterectomy with oophorectomy [Z90.710, Z9*06/22/2011 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] 07/14/2011 06/03/2012 Hyperlipidemia [E78.5] 01/21/2012 Diabetes mellitus (HCC) [E11.9] 02/20/2012 Endometrial cancer [C54.1] 11/01/2012 History of cervical cancer [Z85.41] 11/01/2012 History of colon cancer [Z85.038] 11/01/2012 Diabetic neuropathy (HCC) [E11.40] 02/22/2014 Type 2 diabetes mellitus with proteinuria or al*08/16/2014 04/23/2016 Urinary urgency [R39.15] 03/08/2015 12/03/2016 Frequency of micturition [R35.0] 03/08/2015 12/03/2016 Mixed incontinence [N39.46] 03/08/2015 Kidney stone on left side [N20.0] 03/08/2015 Recurrent major depression in partial remission*12/03/2016 Obesity, Class III, BMI >= 40 (morbid obesity) *12/03/2016 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 (more content not included)... Normal [facility] Urinalysis complete panel (U )on 11-18-2024 Bacteria LM.HPF (Urine sed) [#/Area] Many Abnormal None Seen [facility] Comment on above: Order Comment: Speci men Type: URINE SPECIMEN [facility] Facility[facility] Address: [address] [place] [address] Performed By: #### 2 4356-8 #### [facility] CLIA [id number] [address] Bilirubin Ql (U) 1+ Abnormal Negative [facility] Comment on above: Order Comment: Speci men Type: URINE SPECIMEN Ordering Facility[facility] Address: [address] [place] [address], [place] [address] Result Comment: Sugg est correlation with clinical findings and serum bilirubin if clinically indicated. Performed By: #### 2 4356-8 #### [facility] CLIA [id number] [address] Clarity (Unsp spec) Turbid Abnormal Clear [facility] Comment on above: Order Comment: Speci men Type: URINE SPECIMEN Ordering Facility: [facility] Address: [address] [place] [address], [place] [address] Performed By: #### 2 4356-8 #### [facility] CLIA [id number] [address] Color (U) Yellow Normal Yellow [facility] Comment on above: Order Comment: Speci men Type: URINE SPECIMEN Ordering Facility: [facility] Address: [address] [place] [address], [place] [address] Performed By: #### 2 4356-8 #### [facility] CLIA [id number] [address] Epithelial cells LM.HPF (Urine sed) [#/Area] Few Abnormal None Seen [facility] Comment on above: Order Comment: Speci men Type: URINE SPECIMEN Ordering Facility: [facility] Address: [address] [place] [address], [place] [address] Performed By: #### 2 4356-8 #### [facility] CLIA [id number] [address] Glucose Test strip (U) [Mass/Vol] Negative Normal Negative [facility] Comment on above: Order Comment: Speci men Type: URINE SPECIMEN Ordering Facility: [facility] Address: [address] [place] [address], [place] [address] Performed By: #### 2 4356-8 #### [facility] CLIA [id number] [address] Hemoglobin Ql (U) 3+ Abnormal Negative [facility] Comment on above: Order Comment: Speci men Type: URINE SPECIMEN [facility] Facility[facility] Address: [address] [place] [address], [place] [address] Performed By: #### 2 4356-8 #### [facility] CLIA [id number] [address] Ketones Ql (U) Trace Abnormal Negative [facility] Comment on above: Order Comment: Speci men Type: URINE SPECIMEN [facility] Facility[facility] Address: [address] [place] [address], [place] [address] Performed By: #### 2 4356-8 #### [facility] CLIA [id number] [address] Leukocyte esterase Test strip Ql (U) 2+ Abnormal Negative [facility] Comment on above: Order Comment: Speci men Type: URINE SPECIMEN [facility] Facility[facility] Address: [address] [place] [address], [place] [address] Performed By: #### 2 4356-8 #### [facility] CLIA [id number] [address] Nitrite Ql (U) Positive Abnormal Negative [facility] Comment on above: Order Comment: Speci men Type: URINE SPECIMEN [facility] Address: [address] [place] [address], [place] [address] Performed By: #### 2 4356-8 #### [facility] CLIA [id number] [address] [place] pH (U) 6.0 [pH] Normal 5.0-8.0 [facility] Comment on above: Order Comment: Speci men Type: URINE SPECIMEN [facility] Address: [address] [place] [address], [place] [address] Performed By: #### 2 4356-8 #### [facility] CLIA [id number] [address] [place] Protein (U) [Mass/Vol] 3+ Abnormal Negative [facility] Comment on above: Order Comment: Speci men Type: URINE SPECIMEN [facility] Facility[facility] Address: [address] [place] [address], [place] [address] Performed By: #### 2 4356-8 #### [facility] CLIA [id number] [address] RBC LM.HPF (Urine sed) [#/Area] /[HPF] Abnormal 0-3 /HPF [facility] Comment on above: Order Comment: Speci men Type: URINE SPECIMEN [facility] Facility[facility] Address: [address] [place] [address], [place] [address] Performed By: #### 2 4356-8 #### [facility] CLIA [id number] [address] Specific gravity (U) [Rel density] 1.020 Normal 1.005-1.030 [facility] Comment on above: Order Comment: Speci men Type: URINE SPECIMEN Ordering Facility: [facility] Address: [address] [place] [address] Performed By: #### 2 4356-8 #### [facility] CLIA [id number] [address] Urobilinogen Ql (U) 1.0 EU/dL Normal 0.2 EU/d L, 1.0 EU/dL [facility] Comment on above: Order Comment: Speci men Type: URINE SPECIMEN [facility] Address: [address] [place] [address] Performed By: #### 2 4356-8 #### [facility] CLIA [id number] [address] WBC LM.HPF (Urine sed) [#/Area] /[HPF] Abnormal 0-5 /HPF [facility] Comment on above: Order Comment: Speci men Type: URINE SPECIMEN Ordering Facility: [facility] Address: [address] [place] [address] Performed By: #### 2 4356-8 #### [facility] CLIA [id number] [address] OF [facility] 102on 11-14-2024 102 HNO ID: [id number] Author: LIANG HER HDA Service: ? Author Type: ? Type: 102 Filed: 11/14/2024 10:04 Note Text: Code Status: Full Code Normal [facility] CNOVon 11-07-2024 CNOV Office Visit (FAMPWS ) ----- ALIYAH LEACH ([id number]) 1955 F Date Time Provider Department 11/07/24 3:20 PM [facility] During your visit today, we recorded the following information about you: Pulse Blood pressure Weight 75/minute 112/60 107 kg Bobby Grady MD 11/07/2024 4:09 PM Signed Patient presents with: Hospital F/U HPI: Patient presents today for office visit for hospital follow up/TCM Admitted 10/23-11/10/24-TCM call completed. [facility] appt is coming up. Urology is not seeing anybody yet. Has seen Dr. Osborn in [place]. They had said in the hospital her left kidney was small, however her gfr is great. Has stent in place. They will be following with them. [facility] is following with therapies. Overall feeling well. Living with her daughter currently. She is using a walker. They will determine when it is ok to move home. No chest pain or shortness of breath. No new edema. No palpitations. Bp and heart rate is good. Sugars have been great. No fever or chills. Tubes are clear. Blisters are doing well that were around her tubes. Appetite is good. Has labs and urine ordered by Dr Osborn Note was copied and pasted, without alteration from hospital discharge summary: Reason for Hospitalization: right-sided flank pain. Principal Problem: Severe sepsis (HCC) (POA: Yes) Active Problems: Vesicovaginal fistula (POA: Yes) Right ureteral calculus (POA: Yes) Renal atrophy, left (POA: Yes) CHAPITO (acute kidney injury) (HCC) (POA: Yes) Acute UTI (POA: Yes) Obesity, Class II, BMI 35-39.9 (POA: Unknown) Atrial fibrillation with RVR (HCC) (POA: Unknown) Hypertension (POA: Unknown) Resolved Problems: * No resolved hospital problems. * Procedures During Hospitalization: Right-sided nephrostomy tube placed in IR on 10/23. Hospital Course: A 69-year-old female with significant past medical history of diabetes, hypothyroidism and depression that presents for sudden onset right flank pain. Diagnosis/Management: Right-sided Ureteral Stone: Pt presented to ED with R flank pain. 9 mm stone at R UPJ. 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 R nephrostomy tube placed in IR on 10/23. S/p antegrade stent insertion 10/28. F/U with urology outpatient for further mgmt. Severe Sepsis / UTI / Lactic Acidosis: Febrile and tachycardic on ED arrival. WBC 22, lactic acid 3.5. Urine culture from nephrostomy tube grew E. coli. Completed 9 days of IV abx. Atrial Fibrillation with RVR: A-fib with RVR (HR 144). Continue Amiodarone PO per Cardiology. Continue Eliquis 5 mg BID. F/U with cardiology outpatient for further mgmt. Disposition: Stable for discharge. MEDICATIONS: Current Outpatient Medications Medication Sig clotrimazole (MYCELEX) 10 mg isabell Use 1 Isabell as instructed five times a day for 14 days. Dissolve in mouth apixaban (ELIQUIS) 5 mg tab(s) Take 1 tablet by mouth two times a day. amiodarone (PACERONE) 200 mg tablet Take 1 tablet by mouth two times a day. Patient should start on November 03, 2024. losartan (COZAAR) 25 mg tablet Take 1 tablet by mouth two times a day. metoprolol succinate ER (TOPROL XL) 25 mg 24 hr tablet Take 1 tablet by mouth once daily. magnesium oxide (MAG-OX) 400 mg (241.3 mg magnesium) tablet Take 1 tablet by mouth two times a day. melatonin 3 mg capsules Take 3 mg by mouth daily at bedtime. FLUoxetine (PROZAC) 40 mg capsule Take 1 capsule by mouth once daily. (Patient taking differently: Take 20 mg by mouth once daily.) metFORMIN (GLUCOPHAGE) 1,000 mg tablet Take 1 tablet by mouth two times a day with meals. levothyroxine (SYNTHROID) 112 mcg tablet Take 1 tablet by mouth once daily. pravastatin (PRAVACHOL) 40 mg tablet Take 1 tablet by mouth daily at bedtime. CYANOCOBALAMIN/COBAMAMIDE (B12 SUBLINGUAL) Dissolve 1 tablet under the tongue once daily. Cholecalciferol, Vitamin D3, 125 mcg (5,000 unit) cap Take 125 Units by mouth once daily. multivitamin ORAL tablet Take 1 tablet by mouth once daily. amiodarone (PACERONE) 200 mg tablet Take 2 tablets by mouth three times a day for 2 days. Then fill continuation order. glimepiride (AMARYL) 4 mg tablet Take 4 mg by mouth daily at 6 pm. (Patient not taking: Reported on 11/07/2024) omega-3 acid ethyl esters (LOVAZA) 1 gram capsule Take 2 g by mouth two times a day. (Patient not taking: Reported on 11/07/2024) dulaglutide (TRULICITY) 1.5 mg/0.5 mL pen injector Inject 1.5 mg subcutaneously one time a week. Inject once per week. Discard Pen After vit C,R-Dz-rkwdl-lutein-zeaxa n (PRESERVISION AREDS-2) 250-90-40-1 mg Take 1 capsule by mouth twice daily with meals. lactobacillus comb no.10 (PROBIOTIC) 20 billion cell cap Take 1 capsule by mouth once daily. Patient should start on November 02, 2024. blood sugar diagnostic (ACCU-CHEK ROBIN) test strip (more content not included)... Normal [facility] 11-04-2024 [facility] Telephone (UROLAG) ----- ALIYAH LEACH ([id number]) 1955 F Date Time Provider Department 11/04/24 JADA OSBORN UROLAG During your visit today, we recorded the following information about you: Jada Osborn MD 11/04/2024 10:32 AM Signed Surgery: Cystoscopy and pyelograms, right ureteroscopy with laser lithotripsy, possible ureteral stent removal Duration: 1 hour(s) Surgeon: Jada Osborn MD Location: [facility] Anesthesia: General Fluoroscopy: Yes Special equipment: Thulium (soltive) laser PACC visit: No Presurgical testing: CBC, BMP, Urinalysis and urine culture one week prior to surgery, EKG Clearance: No Bowel prep: No Blood thinners to stop: yes Ghazala Cage 11/09/2024 3:05 PM Signed Patient will be scheduled for 12/12/24. She is aware of details, date and prep. I will send clearance regarding Eloquis. I will send Otto Clave message after she is scheduled. Thank you, Ghazala Tse Allergies As of Date: 11/04/2024 Noted Allergy Reaction DETROL (TOLTERODINE TARTRATE) 08/08/2005 2 - Rash PENICILLINS 08/08/2005 2 - Rash Comments: Tolerating piperacillin/tazobactam at [facility] in October 2024. AD PharmD Date Reviewed: 11/04/2024 Reviewed by: Anni Benoit OT - Fully Assessed Reason for Visit: Orders [681] Primary Visit Diagnosis:Right ureteral calculus [N20.1] Order(s):COMPLETE BLOOD COUNT [SQCBC] Order #: [id number] FUTURE BASIC METABOLIC PANEL [SQBMP] Order #: [id number] FUTURE ECG COMPLETE [ECG01] Order #: [id number] FUTURE URINALYSIS (WITH MICROSCOPIC) WITH CULTURE IF INDICATED [SQUACII] Order #: [id number] FUTURE Prescriptions as of 11/09/2024 - clotrimazole (MYCELEX) 10 mg isabell Use 1 Isabell as instructed five times a day for 14 days. Dissolve in mouth - apixaban (ELIQUIS) 5 mg tab(s) Take 1 tablet by mouth two times a day. - amiodarone (PACERONE) 200 mg tablet Take 1 tablet by mouth two times a day. Patient should start on November 03, 2024. - losartan (COZAAR) 25 mg tablet Take 1 tablet by mouth two times a day. - metoprolol succinate ER (TOPROL XL) 25 mg 24 hr tablet Take 1 tablet by mouth once daily. - magnesium oxide (MAG-OX) 400 mg (241.3 mg magnesium) tablet Take 1 tablet by mouth two times a day. - omega-3 acid ethyl esters (LOVAZA) 1 gram capsule Take 2 g by mouth two times a day. - melatonin 3 mg capsules Take 3 mg by mouth daily at bedtime. - FLUoxetine (PROZAC) 40 mg capsule Take 1 capsule by mouth once daily. - metFORMIN (GLUCOPHAGE) 1,000 mg tablet Take 1 tablet by mouth two times a day with meals. - dulaglutide (TRULICITY) 1.5 mg/0.5 mL pen injector Inject 1.5 mg subcutaneously one time a week. Inject once per week. Discard Pen After - levothyroxine (SYNTHROID) 112 mcg tablet Take 1 tablet by mouth once daily. - pravastatin (PRAVACHOL) 40 mg tablet Take 1 tablet by mouth daily at bedtime. - vit C,F-Sd-fgska-lutein-zeaxa n (PRESERVISION AREDS-2) 250-90-40-1 mg Take 1 capsule by mouth twice daily with meals. - lactobacillus comb no.10 (PROBIOTIC) 20 billion cell cap Take 1 capsule by mouth once daily. Patient should start on November 02, 2024. - CYANOCOBALAMIN/COBAMAMIDE (B12 SUBLINGUAL) Dissolve 1 tablet under the tongue once daily. - Cholecalciferol, Vitamin D3, 125 mcg (5,000 unit) cap Take 125 Units by mouth once daily. - blood sugar diagnostic (ACCU-CHEK ROBIN) test strip Use as instructed - Lancets (ACCU-CHEK SOFTCLIX LANCETS) lancets Once daily. 250.40 - Blood-Glucose Meter (ACCU-CHEK ROBIN PLUS METER) misc 1 Each once daily. - multivitamin ORAL tablet Take 1 tablet by mouth once daily. Problem List As Of Date 11/04/2024 Noted Resolved Benign neoplasm of colon [D12.6] 09/09/2005 12/03/2016 History of malignant neoplasm of large intestin*09/09/2005 12/03/2016 Personal history of colonic polyps [Z86.0100] 09/09/2005 12/03/2016 MALMAHAD NEOPL CERVIX UTERI [180] 12/31/2005 09/07/2007 Depressive disorder, not elsewhere classified [*12/31/2005 12/03/2016 Hypothyroidism [E03.9] 12/31/2005 ASA CLASS III [1003] 12/31/2005 12/03/2016 Type 2 diabetes mellitus without complication (*03/16/2007 01/10/2016 Malignant neoplasm of cervix uteri, unspecified*09/07/2007 12/03/2016 Hypertriglyceridemia [E78.1] 07/10/2009 Mixed Incontinence Urge and Stress (Male)(Femal*11/05/2009 Endometrial cancer [C54.1] 06/13/2011 12/25/2011 S/P hysterectomy with oophorectomy [Z90.710, Z9*06/22/2011 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 Normal [facility] ALIYAH LEACH ([id number]) 1955 F Date Time Provider Department 11/02/24 NEELA MAGANA HCSIND During your visit today, we recorded the following information about you: Neela Magana RN 11/02/2024 2:[address] Grady, SOC visit completed this date. Pt reports numbness of tongue overnight that worsened to nose. Caregiver administered antihistamine which resolved symptoms, pt denies this visit. Pt reports possible thrush while inpatient. Tongue is pink and without white patches noted. Pt also noted to be tachycardic (117-122). Took medications upon SN arrival *including amiodarone, metoprolol, losartan. Pt with irregular HR noted. Pt also with c/o heartburn that only slightly resolved with rollaids. SN contacted virtualist who did not feel necessary for pt to report to ED at this time. Educated pt regarding symptoms and when to seek prompt medical attention as well as scheduled SN visit for tomorrow for assessment. Pt noted to have 2 open blisters (stage 2 pressure injuries) on back r/t nephrostomy tube dressing. Photo obtained and foam adhesive bandage placed. Please advise as appropriate. Thank you for your time, Neela ALLEN, Bobby Mahan MD 11/02/2024 3:32 PM Signed Agree with above. Please let me know if any more tachycardia episodes. Allergies As of Date: 11/02/2024 Noted Allergy Reaction DETROL (TOLTERODINE TARTRATE) 08/08/2005 2 - Rash PENICILLINS 08/08/2005 2 - Rash Comments: Tolerating piperacillin/tazobactam at [facility] in October 2024. AD PharmD Date Reviewed: 11/02/2024 Reviewed by: Neela Magana, SANTO - Fully Assessed Reason for Visit: Home Care [4073] Cmt: Update Order(s):clotrimazole (MYCELEX) 10 mg trocheUse 1 Isabell as instructed five times a day for 14 days. Dissolve in mouthDisp: 70 tabletRfl: 0 Prescriptions as of 11/03/2024 - clotrimazole (MYCELEX) 10 mg isabell Use 1 Isabell as instructed five times a day for 14 days. Dissolve in mouth - apixaban (ELIQUIS) 5 mg tab(s) Take 1 tablet by mouth two times a day. - amiodarone (PACERONE) 200 mg tablet Take 2 tablets by mouth three times a day for 2 days. Then fill continuation order. - amiodarone (PACERONE) 200 mg tablet Take 1 tablet by mouth two times a day. Patient should start on November 03, 2024. - losartan (COZAAR) 25 mg tablet Take 1 tablet by mouth two times a day. - metoprolol succinate ER (TOPROL XL) 25 mg 24 hr tablet Take 1 tablet by mouth once daily. - magnesium oxide (MAG-OX) 400 mg (241.3 mg magnesium) tablet Take 1 tablet by mouth two times a day. - glimepiride (AMARYL) 4 mg tablet Take 4 mg by mouth daily at 6 pm. - omega-3 acid ethyl esters (LOVAZA) 1 gram capsule Take 2 g by mouth two times a day. - melatonin 3 mg capsules Take 10 mg by mouth daily at bedtime. - FLUoxetine (PROZAC) 40 mg capsule Take 1 capsule by mouth once daily. - metFORMIN (GLUCOPHAGE) 1,000 mg tablet Take 1 tablet by mouth two times a day with meals. - dulaglutide (TRULICITY) 1.5 mg/0.5 mL pen injector Inject 1.5 mg subcutaneously one time a week. Inject once per week. Discard Pen After - levothyroxine (SYNTHROID) 112 mcg tablet Take 1 tablet by mouth once daily. - pravastatin (PRAVACHOL) 40 mg tablet Take 1 tablet by mouth daily at bedtime. - vit C,B-Rt-wxrqs-lutein-zeaxa n (PRESERVISION AREDS-2) 250-90-40-1 mg Take 1 capsule by mouth twice daily with meals. - lactobacillus comb no.10 (PROBIOTIC) 20 billion cell cap Take 1 capsule by mouth once daily. Patient should start on November 02, 2024. - CYANOCOBALAMIN/COBAMAMIDE (B12 SUBLINGUAL) Dissolve 1 tablet under the tongue once daily. - Cholecalciferol, Vitamin D3, 125 mcg (5,000 unit) cap Take 125 Units by mouth once daily. - blood sugar diagnostic (ACCU-CHEK ROBIN) test strip Use as instructed - Lancets (ACCU-CHEK SOFTCLIX LANCETS) lancets Once daily. 250.40 - Blood-Glucose Meter (ACCU-CHEK ROBIN PLUS METER) misc 1 Each once daily. - multivitamin ORAL tablet Take 1 tablet by mouth once daily. Problem List As Of Date 11/02/2024 Noted Resolved Benign neoplasm of colon [D12.6] 09/09/2005 12/03/2016 History of malignant neoplasm of large intestin*09/09/2005 12/03/2016 Personal history of colonic polyps [Z86.0100] 09/09/2005 12/03/2016 MALIG NEOPL CERVIX UTERI [180] 12/31/2005 09/07/2007 Depressive disorder, not elsewhere classified [*12/31/2005 12/03/2016 Hypothyroidism [E03.9] 12/31/2005 ASA CLASS III [1003] 12/31/2005 12/03/2016 Type 2 diabetes mellitus without complication (*03/16/2007 01/10/2016 Malignant neoplasm of cervix uteri, unspecified*09/07/2007 12/03/2016 Hypertriglyceridemia [E78.1] 07/10/2009 Mixed Incontinence Urge and Stress (Male)(Femal*11/05/2009 Endometrial cancer [C54.1] 06/13/2011 12/25/2011 S/P hysterectomy with oophorectomy [Z90.710, Z9*06/22/2011 Uterine corpu (more content not included)... Normal [facility] CNPN Telephone (HCSIND) ----- ALIYAH LEACH ([id number]) 1955 F Date Time Provider Department 11/02/24 NEELA MAGANA HCSIND During your visit today, we recorded the following information about you: Neela Magana, RN 11/04/2024 9:[address] Osborn, Pt with R nephrostomy placed by Dr. Dash 10/28, now home with [facility]. No orders for management of nephrostomy tube. Will need the following clarified: - Dressing changes: what type, frequency - Flushes: to be completed? If so, how much and how often? Please advise regarding these necessary orders so education can be provided to pt/caregiver and supplies can be ordered for pt. Thank you, Neela ALLEN, RN Allergies As of Date: 11/02/2024 Noted Allergy Reaction DETROL (TOLTERODINE TARTRATE) 08/08/2005 2 - Rash PENICILLINS 08/08/2005 2 - Rash Comments: Tolerating piperacillin/tazobactam at [facility] in October 2024. AD PharmD Date Reviewed: 11/02/2024 Reviewed by: Neela Magana, RN - Fully Assessed Reason for Visit: Home Care [4073] Cmt: Nephrostomy management orders Prescriptions as of 11/07/2024 - clotrimazole (MYCELEX) 10 mg isabell Use 1 Isabell as instructed five times a day for 14 days. Dissolve in mouth - apixaban (ELIQUIS) 5 mg tab(s) Take 1 tablet by mouth two times a day. - amiodarone (PACERONE) 200 mg tablet Take 2 tablets by mouth three times a day for 2 days. Then fill continuation order. - amiodarone (PACERONE) 200 mg tablet Take 1 tablet by mouth two times a day. Patient should start on November 03, 2024. - losartan (COZAAR) 25 mg tablet Take 1 tablet by mouth two times a day. - metoprolol succinate ER (TOPROL XL) 25 mg 24 hr tablet Take 1 tablet by mouth once daily. - magnesium oxide (MAG-OX) 400 mg (241.3 mg magnesium) tablet Take 1 tablet by mouth two times a day. - glimepiride (AMARYL) 4 mg tablet Take 4 mg by mouth daily at 6 pm. - omega-3 acid ethyl esters (LOVAZA) 1 gram capsule Take 2 g by mouth two times a day. - melatonin 3 mg capsules Take 10 mg by mouth daily at bedtime. - FLUoxetine (PROZAC) 40 mg capsule Take 1 capsule by mouth once daily. - metFORMIN (GLUCOPHAGE) 1,000 mg tablet Take 1 tablet by mouth two times a day with meals. - dulaglutide (TRULICITY) 1.5 mg/0.5 mL pen injector Inject 1.5 mg subcutaneously one time a week. Inject once per week. Discard Pen After - levothyroxine (SYNTHROID) 112 mcg tablet Take 1 tablet by mouth once daily. - pravastatin (PRAVACHOL) 40 mg tablet Take 1 tablet by mouth daily at bedtime. - vit C,T-Jx-ohkvu-lutein-zeaxa n (PRESERVISION AREDS-2) 250-90-40-1 mg Take 1 capsule by mouth twice daily with meals. - lactobacillus comb no.10 (PROBIOTIC) 20 billion cell cap Take 1 capsule by mouth once daily. Patient should start on November 02, 2024. - CYANOCOBALAMIN/COBAMAMIDE (B12 SUBLINGUAL) Dissolve 1 tablet under the tongue once daily. - Cholecalciferol, Vitamin D3, 125 mcg (5,000 unit) cap Take 125 Units by mouth once daily. - blood sugar diagnostic (ACCU-CHEK ROBIN) test strip Use as instructed - Lancets (ACCU-CHEK SOFTCLIX LANCETS) lancets Once daily. 250.40 - Blood-Glucose Meter (ACCU-CHEK ROBIN PLUS METER) misc 1 Each once daily. - multivitamin ORAL tablet Take 1 tablet by mouth once daily. Problem List As Of Date 11/02/2024 Noted Resolved Benign neoplasm of colon [D12.6] 09/09/2005 12/03/2016 History of malignant neoplasm of large intestin*09/09/2005 12/03/2016 Personal history of colonic polyps [Z86.0100] 09/09/2005 12/03/2016 MALIG NEOPL CERVIX UTERI [180] 12/31/2005 09/07/2007 Depressive disorder, not elsewhere classified [*12/31/2005 12/03/2016 Hypothyroidism [E03.9] 12/31/2005 ASA CLASS III [1003] 12/31/2005 12/03/2016 Type 2 diabetes mellitus without complication (*03/16/2007 01/10/2016 Malignant neoplasm of cervix uteri, unspecified*09/07/2007 12/03/2016 Hypertriglyceridemia [E78.1] 07/10/2009 Mixed Incontinence Urge and Stress (Male)(Femal*11/05/2009 Endometrial cancer [C54.1] 06/13/2011 12/25/2011 S/P hysterectomy with oophorectomy [Z90.710, Z9*06/22/2011 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] 07/14/2011 06/03/2012 Hyperlipidemia [E78.5] 01/21/2012 Diabetes mellitus (HCC) [E11.9] 02/20/2012 Endometrial cancer [C54.1] 11/01/2012 History of cervical cancer [Z85.41] 11/01/2012 History of colon cancer [Z85.038] 11/01/2012 Diabetic neuropathy (HCC) [E11.40] 02/22/2014 Type 2 diabetes mellitus with proteinuria or al*08/16/2014 04/23/2016 Urinary urgency [R39.15] 03/08/2015 12/03/2016 Frequency of micturition [R35.0] 03/08/2015 12/03/2016 Mixed incontinence [N39.46] 03/08/2015 Kidney stone on left side [N20.0] 03/08/2015 Recurrent major depression in partial remission*12/03/2016 Obesity, Class III, BMI >= 40 (morbid obesity) *12/03/2016 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] 08/12/2017 Psoriasis [L40.9] 08/12/2017 Radiculopathy (more content not included)... Normal [facility] CNCOon 11-01-2024 CNCO Letter Text Normal [facility] CNPNon 11-01-2024 CNPN Telephone (SAUNDRA) ----- ALIYAH LEACH ([id number]) 1955 F Date Time Provider Department 11/01/24 BOBBY GRADY During your visit today, we recorded the following information about you: Jacqueline Apodaca LPN 11/01/2024 9:56 AM Signed Pt's daughter calls to report that pt was in [facility] x 9 days. Pt was discharged 10/31. Daughter reports pt had multiple issues while in the hospital. F/u appt scheduled with pcp for 11/07/24 per daughter request. Daughter reports that pt does have an appt with [facility] on 12/05/24 as pt went into A-fib in hospital. Daughter is asking if provider can review hospital records to see if appt date is ok or if pt needs sooner. Daughter reports at this time pt is worn out but doing ok. Daughter's concerns are bp spiking (in hospital they would put medication in IV if bp was high) and blood sugars being high (pt would be given insulin in hospital if blood sugars were high). Pt does not have insulin at home. Daughter is going to keep record of bp and blood sugar readings and will update the office if they are high. GIFTY Parisi William J, MD 11/01/2024 10:44 AM Signed What the did in the hospital with her sugars and bp is quite common. Looking at her info, I think the current appt is appropriate. If she feels she needs to be seen sooner, would likely have to see another provider and usually we wait one to two weeks after discharge to get a good gauge of how doing. Monitor sugars at home. Do they have the ability to check bp. I think home health is following her and will let us know if bp is up as well. Rowan Luz MA 11/01/2024 11:41 AM Signed Left message for patient's daughter Amelia. MIKE Radford HEATHER 11/04/2024 9:40 AM Signed Spoke with daughter, Amelia, at this time and advised of below information. States that they have been checking and keeping log of her BS and BP. Home health has been in to evaluate and check patient. They will be returning again next week. She will keep appt on 11/07/24 to further discuss. Manisha Huff LPN Allergies As of Date: 11/01/2024 Noted Allergy Reaction DETROL (TOLTERODINE TARTRATE) 08/08/2005 2 - Rash PENICILLINS 08/08/2005 2 - Rash Comments: Tolerating piperacillin/tazobactam at [facility] in October 2024. AD PharmD Date Reviewed: 10/30/2024 Reviewed by: Doretha Schilling, RN - Fully Assessed Reason for Visit: Hospital Follow Up [177] Prescriptions as of 11/04/2024 - clotrimazole (MYCELEX) 10 mg isabell Use 1 Isabell as instructed five times a day for 14 days. Dissolve in mouth - apixaban (ELIQUIS) 5 mg tab(s) Take 1 tablet by mouth two times a day. - amiodarone (PACERONE) 200 mg tablet Take 2 tablets by mouth three times a day for 2 days. Then fill continuation order. - amiodarone (PACERONE) 200 mg tablet Take 1 tablet by mouth two times a day. Patient should start on November 03, 2024. - losartan (COZAAR) 25 mg tablet Take 1 tablet by mouth two times a day. - metoprolol succinate ER (TOPROL XL) 25 mg 24 hr tablet Take 1 tablet by mouth once daily. - magnesium oxide (MAG-OX) 400 mg (241.3 mg magnesium) tablet Take 1 tablet by mouth two times a day. - glimepiride (AMARYL) 4 mg tablet Take 4 mg by mouth daily at 6 pm. - omega-3 acid ethyl esters (LOVAZA) 1 gram capsule Take 2 g by mouth two times a day. - melatonin 3 mg capsules Take 10 mg by mouth daily at bedtime. - FLUoxetine (PROZAC) 40 mg capsule Take 1 capsule by mouth once daily. - metFORMIN (GLUCOPHAGE) 1,000 mg tablet Take 1 tablet by mouth two times a day with meals. - dulaglutide (TRULICITY) 1.5 mg/0.5 mL pen injector Inject 1.5 mg subcutaneously one time a week. Inject once per week. Discard Pen After - levothyroxine (SYNTHROID) 112 mcg tablet Take 1 tablet by mouth once daily. - pravastatin (PRAVACHOL) 40 mg tablet Take 1 tablet by mouth daily at bedtime. - vit C,H-Zv-lcfhz-lutein-zeaxa n (PRESERVISION AREDS-2) 250-90-40-1 mg Take 1 capsule by mouth twice daily with meals. - lactobacillus comb no.10 (PROBIOTIC) 20 billion cell cap Take 1 capsule by mouth once daily. Patient should start on November 02, 2024. - CYANOCOBALAMIN/COBAMAMIDE (B12 SUBLINGUAL) Dissolve 1 tablet under the tongue once daily. - Cholecalciferol, Vitamin D3, 125 mcg (5,000 unit) cap Take 125 Units by mouth once daily. - blood sugar diagnostic (ACCU-CHEK ROBIN) test strip Use as instructed - Lancets (ACCU-CHEK SOFTCLIX LANCETS) lancets Once daily. 250.40 - Blood-Glucose Meter (ACCU-CHEK ROBIN PLUS METER) misc 1 Each once daily. - multivitamin ORAL tablet Take 1 tablet by mouth once daily. Problem List As Of Date 11/01/2024 Noted Resolved Benign neoplasm of colon [D12.6] 09/09/2005 12/03/2016 History of malignant neoplasm of large intestin*09/09/2005 12/03/2016 Personal history of colonic polyps [Z86.0100] 0 (more content not included)... Normal [facility] CASE MANAGEMon 10-31-2024 CASE MANAGEM [facility] CASE MANAGEM [facility] CNPN Telephone (HCSIND) ----- ALIYAH LEACH ([id number]) 1955 F Date Time Provider Department 10/31/24 SHITAL FLORES During your visit today, we recorded the following information about you: Shital Flores LPN 10/31/2024 2:23 PM Signed Bobby Grady MD Please advise if you are agreeable to signing and following for [facility] services? Our Clinicians will be sending the Plan of Care to you for review and approval. They will reach out for any appropriate orders required to provide home care services for the patient. We are not able to initiate HHC services without a following provider. Home care clinicians may also obtain orders from [facility] Virtual[facility] Providers Thank you and we would be happy to answer any questions. Shital Flores LPN 10/31/2024 2:23 PM Bobby Grady MD 10/31/2024 2:58 PM Signed I can sign Allergies As of Date: 10/31/2024 Noted Allergy Reaction DETROL (TOLTERODINE TARTRATE) 08/08/2005 2 - Rash PENICILLINS 08/08/2005 2 - Rash Comments: Tolerating piperacillin/tazobactam at [facility] in October 2024. AD PharmD Date Reviewed: 10/30/2024 Reviewed by: Doretha Schilling RN - Fully Assessed Reason for Visit: Home Care [4073] Cmt: MD to Follow Prescriptions as of 10/31/2024 - apixaban (ELIQUIS) 5 mg tab(s) Take 1 tablet by mouth two times a day. - amiodarone (PACERONE) 200 mg tablet Take 2 tablets by mouth three times a day for 2 days. Then fill continuation order. - amiodarone (PACERONE) 200 mg tablet Take 1 tablet by mouth two times a day. Patient should start on November 03, 2024. - glimepiride (AMARYL) 4 mg tablet Take 4 mg by mouth daily at 6 pm. - omega-3 acid ethyl esters (LOVAZA) 1 gram capsule Take 2 g by mouth two times a day. - aspirin 81 mg cap Take 1 tablet by mouth once daily. - melatonin 3 mg capsules Take 10 mg by mouth daily at bedtime. - FLUoxetine (PROZAC) 40 mg capsule Take 1 capsule by mouth once daily. - metFORMIN (GLUCOPHAGE) 1,000 mg tablet Take 1 tablet by mouth two times a day with meals. - dulaglutide (TRULICITY) 1.5 mg/0.5 mL pen injector Inject 1.5 mg subcutaneously one time a week. Inject once per week. Discard Pen After - levothyroxine (SYNTHROID) 112 mcg tablet Take 1 tablet by mouth once daily. - pravastatin (PRAVACHOL) 40 mg tablet Take 1 tablet by mouth daily at bedtime. - vit C,E-Hl-kmdig-lutein-zeaxa n (PRESERVISION AREDS-2) 250-90-40-1 mg Take 1 capsule by mouth twice daily with meals. - lactobacillus comb no.10 (PROBIOTIC) 20 billion cell cap Take by mouth. - CYANOCOBALAMIN/COBAMAMIDE (B12 SUBLINGUAL) Dissolve under the tongue. - Cholecalciferol, Vitamin D3, 125 mcg (5,000 unit) cap Take 125 Units by mouth once daily. - blood sugar diagnostic (ACCU-CHEK ROBIN) test strip Use as instructed - Lancets (ACCU-CHEK SOFTCLIX LANCETS) lancets Once daily. 250.40 - Blood-Glucose Meter (ACCU-CHEK ROBIN PLUS METER) misc 1 Each once daily. - multivitamin ORAL tablet Take 1 tablet by mouth once daily. Facility-Administered Medications as of 10/31/2024 - pravastatin 40 mg tab(s) (PRAVACHOL) - apixaban 5 mg tab(s) (ELIQUIS) - amiodarone 400 mg tab(s) (PACERONE) - magnesium oxide 400 mg tab(s) (MAG-OX) - losartan 25 mg tab(s) (COZAAR) - hydrALAZINE 10 mg injection (APRESOLINE) - metoprolol succinate ER 25 mg tab(s) (TOPROL XL) - cefTRIAXone 2 g in D5W 100 mL Vial-Bag (ROCEPHIN) - acetaminophen 650 mg tab(s) (TYLENOL) - NaCl 0.9% iv flush bag - aluminum-magnesium hydroxide-simethicone 200-200-20 mg/5 mL 30 mL - ondansetron 4 mg tab(s) (ZOFRAN) - ondansetron (PF) 4 mg injection (ZOFRAN) - polyethylene glycol 3350 17 g packet - traMADol 50 mg tab(s) (ULTRAM) - morphine 4 mg injection - HYDROmorphone 0.5 mg injection (DILAUDID) - traZODone 25 mg tab(s) (DESYREL) - dextrose 40 % 15 g - glucagon 1 mg injection - dextrose 10% iv bolus - insulin lispro injection (rapid acting) (ADMElog) - insulin lispro injection (rapid acting) (ADMElog) - FLUoxetine 20 mg cap(s) (PROzac) - levothyroxine 112 mcg tab(s) (SYNTHROID) - sodium chloride 0.9 % (flush) 5-10 mL (BD POSIFLUSH) Problem List As Of Date 10/31/2024 Noted Resolved Benign neoplasm of colon [D12.6] 09/09/2005 12/03/2016 History of malignant neoplasm of large intestin*09/09/2005 12/03/2016 Personal history of colonic polyps [Z86.0100] 09/09/2005 12/03/2016 MALIG NEOPL CERVIX UTERI [180] 12/31/2005 09/07/2007 Depressive disorder, not elsewhere classified [*12/31/2005 12/03/2016 Hypothyroidism [E03.9] 12/31/2005 ASA CLASS III [1003] 12/31/2005 12/03/2016 Type 2 diabetes mellitus without complication (*03/16/2007 01/10/2016 Malignant neoplasm of cervix uteri, unspecified*09/07/2007 12/03/2016 Hypertriglyceridemia [E78.1] 07/10/2009 Mixed Incontinence Urge and Stress (Male)(Femal*11/05/2009 Endometrial cancer [C54.1] 06/13/20 (more content not included)... Normal [facility] Telephone (HCSIND) ----- ALIYAH LEACH ([id number]) 1955 F Date Time Provider Department 10/31/24 SHITAL FLORES During your visit today, we recorded the following information about you: Shital Flores LPN 10/31/2024 3:46 PM Signed Date/Time: 10/31/2024 3:44 PM Spoke with Amelia-Daughter @ phone #: [phone] - Preferred # for contact: [phone] Have you received help from a home care company in the last 60 days? no Are you agreeable to [facility] services? yes What address will we be seeing you at? [address] [place]. Do you have any upcoming appointments or things we need to schedule around? no Do you have a teachable CG or can you manage your care independently? yes Who? family Have you received the flu shot? yes If so, when and where? PCP-09/2024 Allergies As of Date: 10/31/2024 Noted Allergy Reaction DETROL (TOLTERODINE TARTRATE) 08/08/2005 2 - Rash PENICILLINS 08/08/2005 2 - Rash Comments: Tolerating piperacillin/tazobactam at [facility] in October 2024. AD PharmD Date Reviewed: 10/30/2024 Reviewed by: Doretha Schilling RN - Fully Assessed Reason for Visit: Home Care [4073] Cmt: Confirmation call Prescriptions as of 10/31/2024 - apixaban (ELIQUIS) 5 mg tab(s) Take 1 tablet by mouth two times a day. - amiodarone (PACERONE) 200 mg tablet Take 2 tablets by mouth three times a day for 2 days. Then fill continuation order. - amiodarone (PACERONE) 200 mg tablet Take 1 tablet by mouth two times a day. Patient should start on November 03, 2024. - losartan (COZAAR) 25 mg tablet Take 1 tablet by mouth two times a day. - metoprolol succinate ER (TOPROL XL) 25 mg 24 hr tablet Take 1 tablet by mouth once daily. - magnesium oxide (MAG-OX) 400 mg (241.3 mg magnesium) tablet Take 1 tablet by mouth two times a day. - glimepiride (AMARYL) 4 mg tablet Take 4 mg by mouth daily at 6 pm. - omega-3 acid ethyl esters (LOVAZA) 1 gram capsule Take 2 g by mouth two times a day. - melatonin 3 mg capsules Take 10 mg by mouth daily at bedtime. - FLUoxetine (PROZAC) 40 mg capsule Take 1 capsule by mouth once daily. - metFORMIN (GLUCOPHAGE) 1,000 mg tablet Take 1 tablet by mouth two times a day with meals. - dulaglutide (TRULICITY) 1.5 mg/0.5 mL pen injector Inject 1.5 mg subcutaneously one time a week. Inject once per week. Discard Pen After - levothyroxine (SYNTHROID) 112 mcg tablet Take 1 tablet by mouth once daily. - pravastatin (PRAVACHOL) 40 mg tablet Take 1 tablet by mouth daily at bedtime. - vit C,T-Hv-trbex-lutein-zeaxa n (PRESERVISION AREDS-2) 250-90-40-1 mg Take 1 capsule by mouth twice daily with meals. - lactobacillus comb no.10 (PROBIOTIC) 20 billion cell cap Take by mouth. - CYANOCOBALAMIN/COBAMAMIDE (B12 SUBLINGUAL) Dissolve under the tongue. - Cholecalciferol, Vitamin D3, 125 mcg (5,000 unit) cap Take 125 Units by mouth once daily. - blood sugar diagnostic (ACCU-CHEK ROBIN) test strip Use as instructed - Lancets (ACCU-CHEK SOFTCLIX LANCETS) lancets Once daily. 250.40 - Blood-Glucose Meter (ACCU-CHEK ROBIN PLUS METER) misc 1 Each once daily. - multivitamin ORAL tablet Take 1 tablet by mouth once daily. Facility-Administered Medications as of 10/31/2024 - pravastatin 40 mg tab(s) (PRAVACHOL) - apixaban 5 mg tab(s) (ELIQUIS) - amiodarone 400 mg tab(s) (PACERONE) - magnesium oxide 400 mg tab(s) (MAG-OX) - losartan 25 mg tab(s) (COZAAR) - hydrALAZINE 10 mg injection (APRESOLINE) - metoprolol succinate ER 25 mg tab(s) (TOPROL XL) - cefTRIAXone 2 g in D5W 100 mL Vial-Bag (ROCEPHIN) - acetaminophen 650 mg tab(s) (TYLENOL) - NaCl 0.9% iv flush bag - aluminum-magnesium hydroxide-simethicone 200-200-20 mg/5 mL 30 mL - ondansetron 4 mg tab(s) (ZOFRAN) - ondansetron (PF) 4 mg injection (ZOFRAN) - polyethylene glycol 3350 17 g packet - traMADol 50 mg tab(s) (ULTRAM) - morphine 4 mg injection - HYDROmorphone 0.5 mg injection (DILAUDID) - traZODone 25 mg tab(s) (DESYREL) - dextrose 40 % 15 g - glucagon 1 mg injection - dextrose 10% iv bolus - insulin lispro injection (rapid acting) (ADMElog) - insulin lispro injection (rapid acting) (ADMElog) - FLUoxetine 20 mg cap(s) (PROzac) - levothyroxine 112 mcg tab(s) (SYNTHROID) - sodium chloride 0.9 % (flush) 5-10 mL (BD POSIFLUSH) Problem List As Of Date 10/31/2024 Noted Resolved Benign neoplasm of colon [D12.6] 09/09/2005 12/03/2016 History of malignant neoplasm of large intestin*09/09/2005 12/03/2016 Personal history of colonic polyps [Z86.0100] 09/09/2005 12/03/2016 MALIG NEOPL CERVIX UTERI [180] 12/31/2005 09/07/2007 Depressive disorder, not elsewhere classified [*12/31/2005 12/03/2016 Hypothyroidism [E03.9] 12/31/2005 ASA CLASS III [1003] 12/31/2005 12/03/2016 Type 2 diabetes mellitus without complication (*03/16/2007 01/10/2016 Malignant neoplasm of cervix uteri, unspecified (more content not included)... Normal [facility] CONSULT PROGon 10-31-2024 CONSULT PROG Normal Comprehensive metabolic 2000 panelon 10-31-2024 Albumin [Mass/Vol] 2.4 g/dL Low 3.2-5.0 Comment on above: Order Comment: Speci men Type: BLOOD SPECIMENOrdering Facility: [facility] Address: [address] [place] [address] Performed By: #### 2 4323-8, ####[facility] LABORATORYCLIA [id number] [place] [address] [place] ALP [Catalytic activity/Vol] 72 U/L Normal 45-117 Comment on above: Order Comment: Sandiei lexus Type: BLOOD SPECIMENOrdering Facility: [facility] Address: [address] [place] [address] Performed By: #### 2 4323-8, ####[facility] LABORATORYCLIA [id number] [place] [id number] [place] ALT [Catalytic activity/Vol] 12 U/L Low 13-61 Comment on above: Order Comment: Sandiei men Type: BLOOD SPECIMENOrdering Facility: [facility] Address: [address] [place] [address] Result Comment: Resu lts may be falsely depressed after the administration of Sulfasalazine and/or Sulfapyridine. Performed By: #### 2 4323-8, ####[facility]ATORYCLIA [id number] [place] [id number] [place] Anion gap [Moles/Vol] 5 mmol/L Normal 5-16 [facility] Comment on above: Order Comment: Speci men Type: BLOOD SPECIMENOrdering Facility: [facility] Address: [address] [place] [address] Performed By: #### 2 4323-8, ####[facility] LAB[facility]ATORYCLIA [id number] [place] [address] [place] AST [Catalytic activity/Vol] 10 U/L Normal 8-34 Comment on above: Order Comment: Speci men Type: BLOOD SPECIMENOrdering Facility: [facility] Address: [address] [place] [address] Result Comment: Resu lts may be falsely depressed after the administration of Sulfasalazine and/or Sulfapyridine. Performed By: #### 2 4323-8, ####[facility]ATORYCLIA [id number] [place] [address] [place] Bilirubin [Mass/Vol] 0.3 mg/dL Normal 0.2-1.0 [facility] Comment on above: Order Comment: Speci men Type: BLOOD SPECIMENOrdering Facility: [facility] Address: [address] [place] [address] Performed By: #### 2 4323-8, ####[facility] LABORATORYCLIA [id number] [place] [id number] [place] Calcium [Mass/Vol] 9.0 mg/dL Normal 8.5-10.5 Comment on above: Order Comment: Speci men Type: BLOOD SPECIMENOrdering Facility: [facility] Address: [address] [place] [address] Performed By: #### 2 4323-8, ####[facility]ATORYCLIA [id number] [place] [id number] [place] Chloride [Moles/Vol] 106 mmol/L Normal 98-107 [facility] Comment on above: Order Comment: Speci men Type: BLOOD SPECIMENOrdering Facility: [facility] Address: [address] [place] [id number] Performed By: #### 2 4323-8, ####[facility] LABORATORYCLIA [id number] [place] [address] [place] CO2 [Moles/Vol] 28 mmol/L Normal 21-32 Comment on above: Order Comment: Speci men Type: BLOOD SPECIMENOrdering Facility: [facility] Address: [address] [place] [address] Performed By: #### 2 4323-8, ####[facility] LABORATORYCLIA [id number] [place] [id number] [place] Creatinine [Mass/Vol] 0.54 mg/dL Normal 0.51-0.95 [facility] Comment on above: Order Comment: Speci men Type: BLOOD SPECIMENOrdering Facility: [facility] Address: [address] [place] [address] Result Comment: Jose ents receiving either N-Acetylcysteine (NAC) or Metamizole prior to venipuncture, may have falsely depressed results. Performed By: #### 2 4323-8, ####[facility]ATORYCLIA [id number] [address] OF [facility] Creatinine and Glomerular filtration rate.predicted panel (S/P/Bld) 99 mL/min/1.73m??? Normal >=60 Comment on above: Order Comment: Speci men Type: BLOOD SPECIMENOrdering Facility: [facility] Address: [address] [place] [address] Result Comment: Alecia mated Glomerular Filtration Rate (eGFR) is calculated using the 2020 CKD-EPI creatinine equation. This equation utilizes serum creatinine, sex, and age as parameters. The creatinine assay has traceable calibration to isotope dilution-mass spectrometry. Refer to KDIGO guidelines for clinical interpretation. In patients with unstable renal function, e.g. those with acute kidney injury, the eGFR may not accurately reflect actual GFR. Performed By: #### 2 4323-8, 02772-4 ####[facility]ATORYCLIA [id number] [place] [id number] [place] Glucose [Mass/Vol] 216 mg/dL High 70-100 Comment on above: Order Comment: Jack lexus Type: BLOOD SPECIMENOrdering Facility: [facility] Address: [address] [place] [address] Result Comment: The [place] [employer] (ADA) provides guidance for cutoff values for fasting glucose and random glucose. The ADA defines fasting as no caloric intake for at least 8 hours. Fasting plasma glucose results between 100 to 125 mg/dL indicate increased risk for diabetes (prediabetes).Fasting plasma glucose results greater than or equal to 126 mg/dL meet the criteria for diagnosis of diabetes. In the absence of unequivocal hyperglycemia, results should be confirmed by repeat testing. In a patient with classic symptoms of hyperglycemia or hyperglycemic crisis, random plasma glucose results greater than or equal to 200 mg/dL meet the criteria for diagnosis of diabetes.Reference: Standards of Medical Care in Diabetes 2016, [place] [employer]. Diabetes Care. 2016.39(Suppl 1).Results may be falsely elevated after the administration of Sulfapyridine.Results may be falsely depressed after the administration of Sulfasalazine. Performed By: #### 2 4323-8, ####[facility]ATORYCLIA [id number] [place] [id number] [place] Potassium [Moles/Vol] 4.0 mmol/L Normal 3.5-5.1 [facility] Comment on above: Order Comment: Jack alberts Type: BLOOD SPECIMENOrdering Facility: [facility] Address: [address] [place] [address] Performed By: #### 2 4323-8, ####[facility]ATORYCLIA [id number] [place] [id number] [place] Protein [Mass/Vol] 6.2 g/dL Normal 6.0-8.5 Comment on above: Order Comment: Jack lexus Type: BLOOD SPECIMENOrdering Facility: [facility] Address: [address] [place] [address] Performed By: #### 2 4323-8, ####[facility]ATORYCLIA [id number] [place] [id number] [place] Sodium [Moles/Vol] 139 mmol/L Normal 136-145 Comment on above: Order Comment: Speci men Type: BLOOD SPECIMENOrdering Facility: [facility] Address: [address] [place], [place] [address] Performed By: #### 2 4323-8, ####[facility]ATORYCLIA [id number] [place] [id number] [place] Urea nitrogen [Mass/Vol] 9 mg/dL Normal - Comment on above: Order Comment: Speci men Type: BLOOD SPECIMENOrdering Facility: [facility] Address: [address] [place] [address] Performed By: #### 2 4323-8, ####[facility]ATORYCLIA [id number] [place] [id number] [place] ECG COMPLETEon 10-31-2024 ECG COMPLETE Normal Magnesium SerPl-mCncon 10-31 Magnesium [Mass/Vol] 1.6 mg/dL Normal 1.6-2.6 [facility] Comment on above: Order Comment: Speci men Type: BLOOD SPECIMENOrdering Facility: [facility] Address: [address] [place], [place] [address] Performed By: #### 2 4323-8, ####[facility]ATORYCLIA [id number] [place] [id number] [place] THERAPY NTon 10-31-2024 THERAPY NT Normal THERAPY NT Normal Basic metabolic 2000 panelon 10-30-2024 Anion gap [Moles/Vol] 6 mmol/L Normal 5-16 [facility] Comment on above: Order Comment: Speci men Type: BLOOD SPECIMENOrdering Facility: [facility] Address: [address] [place] [address] [place] [address] Performed By: #### 2 4321-2, , 2776-08 ####[facility]ATORYCLIA [id number] [place] [id number] [place] Calcium [Mass/Vol] 8.8 mg/dL Normal 8.5-10.5 Comment on above: Order Comment: Speci men Type: BLOOD SPECIMENOrdering Facility: [facility] Address: [address] [place] [address] Performed By: #### 2 4321-2, , 2776-08 ####[facility]ATORYCLIA [id number] [place] [id number] [place] Chloride [Moles/Vol] 105 mmol/L Normal 98-107 [facility] Comment on above: Order Comment: Speci men Type: BLOOD SPECIMENOrdering Facility: [facility] Address: [address] [place] [address] Performed By: #### 2 4321-2, , 2776-08 ####[facility]ATORYCLIA [id number] [place] [id number] [place] CO2 [Moles/Vol] 26 mmol/L Normal 21-32 Comment on above: Order Comment: Speci men Type: BLOOD SPECIMENOrdering Facility: [facility] Address: [address] [place] [address] Performed By: #### 2 4321-2, , 2776-08 ####[facility]ATORYCLIA [id number] [place] [id number] [place] Creatinine [Mass/Vol] 0.55 mg/dL Normal 0.51-0.95 [facility] Comment on above: Order Comment: Speci men Type: BLOOD SPECIMENOrdering Facility: [facility] Address: [address] [place] [address] Result Comment: Jose ents receiving either N-Acetylcysteine (NAC) or Metamizole prior to venipuncture, may have falsely depressed results. Performed By: #### 2 432-2, 17644-0, 277- ####[facility]ATORYCLIA [id number] [place] [id number] [place] Creatinine and Glomerular filtration rate.predicted panel (S/P/Bld) 98 mL/min/1.73m??? Normal >=60 Comment on above: Order Comment: Jack alberts Type: BLOOD SPECIMENOrdering Facility: [facility] Address: [address] [place] [address] Result Comment: Alecia mated Glomerular Filtration Rate (eGFR) is calculated using the 2020 CKD-EPI creatinine equation. This equation utilizes serum creatinine, sex, and age as parameters. The creatinine assay has traceable calibration to isotope dilution-mass spectrometry. Refer to KDIGO guidelines for clinical interpretation. In patients with unstable renal function, e.g. those with acute kidney injury, the eGFR may not accurately reflect actual GFR. Performed By: #### 2 4321-2, , 2776-08 ####[facility]ATORYCLIA [id number] [place] [id number] [place] Glucose [Mass/Vol] 280 mg/dL High 70-100 Comment on above: Order Comment: Jack alberts Type: BLOOD SPECIMENOrdering Facility: [facility] Address: [address] [place] [address] Result Comment: The [place] Diabetes Association (ADA) provides guidance for cutoff values for fasting glucose and random glucose. The ADA defines fasting as no caloric intake for at least 8 hours. Fasting plasma glucose results between 100 to 125 mg/dL indicate increased risk for diabetes (prediabetes).Fasting plasma glucose results greater than or equal to 126 mg/dL meet the criteria for diagnosis of diabetes. In the absence of unequivocal hyperglycemia, results should be confirmed by repeat testing. In a patient with classic symptoms of hyperglycemia or hyperglycemic crisis, random plasma glucose results greater than or equal to 200 mg/dL meet the criteria for diagnosis of diabetes.Reference: Standards of Medical Care in Diabetes 2016, [place] [employer]. Diabetes Care. 2016.39(Suppl 1).Results may be falsely elevated after the administration of Sulfapyridine.Results may be falsely depressed after the administration of Sulfasalazine. Performed By: #### 2 4321-2, 16470-2, 2776-08 ####[facility]ATORYCLIA [id number] [place] [id number] [place] Potassium [Moles/Vol] 4.3 mmol/L Normal 3.5-5.1 [facility] Comment on above: Order Comment: Speci men Type: BLOOD SPECIMENOrdering Facility: [facility] Address: [address] [place] [address] Performed By: #### 2 4321-2, , 2776-08 ####[facility]ATORYCLIA [id number] [place] [address] [place] Sodium [Moles/Vol] 137 mmol/L Normal 136-145 Comment on above: Order Comment: Speci men Type: BLOOD SPECIMENOrdering Facility: [facility] Address: [address] [place] [address] Performed By: #### 2 4321-2, , 2776-08 ####[facility]ATORYCLIA [id number] [place] [address] [place] Urea nitrogen [Mass/Vol] 11 mg/dL Normal 7-26 Comment on above: Order Comment: Speci men Type: BLOOD SPECIMENOrdering Facility: [facility] Address: [address] [place] [address] Performed By: #### 2 4321-2, , 2776-08 ####[facility]ATORYCLIA [id number] [place] [id number] [place] CBC W Auto Differential pane l (Bld)on 10-30-2024 Basophils (Bld) [#/Vol] 0.00 10*3/uL Normal <0.11 Comment on above: Order Comment: Speci men Type: BLOOD SPECIMENOrdering Facility: [facility] Address: [address] [place] [address] Performed By: #### 5 7021-8 ####[facility]ATORYCLIA [id number] [place] [address] [place] Basophils/100 WBC (Bld) 0.0 % Normal Comment on above: Order Comment: Speci men Type: BLOOD SPECIMENOrdering Facility: [facility] Address: [address] [place] [address] Performed By: #### 5 7021-8 ####[facility]ATORYCLIA [id number] [place] [address] [place] Differential cell count method Nom (Bld) Manual Normal Comment on above: Order Comment: Speci men Type: BLOOD SPECIMENOrdering Facility: [facility] Address: [address] [place] [address] Performed By: #### 5 7021-8 ####[facility]ATORYCLIA [id number] [place] [address] [place] Eosinophils (Bld) [#/Vol] 0.11 10*3/uL Normal <0.46 Comment on above: Order Comment: Speci men Type: BLOOD SPECIMENOrdering Facility: [facility] Address: [address] [place] [address] Performed By: #### 5 7021-8 ####[facility]ATORYCLIA [id number] [address] [place] Eosinophils/100 WBC (Bld) 1.0 % Normal Comment on above: Order Comment: Speci men Type: BLOOD SPECIMENOrdering Facility: [facility] Address: [address] [place] [address] Performed By: #### 5 7021-8 ####[facility]ATORYCLIA [id number] [address] [place] Erythrocyte distribution width (RBC) [Ratio] 13.9 % Normal 11.5-15.0 Comment on above: Order Comment: Speci men Type: BLOOD SPECIMENOrdering Facility: [facility] Address: [address] [place] [address] Performed By: #### 5 7021-8 ####[facility]ATORYCLIA [id number] [place] [id number] [place] Hematocrit (Bld) [Volume fraction] 35.4 % Low 36.0-46.0 Comment on above: Order Comment: Speci men Type: BLOOD SPECIMENOrdering Facility: [facility] Address: [address] [place] [address] Performed By: #### 5 7021-8 ####[facility]ATORYCLIA [id number] [place] [address] [place] Hemoglobin (Bld) [Mass/Vol] 11.3 g/dL Low 11.5-15.5 Comment on above: Order Comment: Speci men Type: BLOOD SPECIMENOrdering Facility: [facility] Address: [address] [place] [address] Performed By: #### 5 7021-8 ####[facility]ATORYCLIA [id number] [place] [address] [place] Lymphocytes (Bld) [#/Vol] 1.89 10*3/uL Normal 1.00-4.00 Comment on above: Order Comment: Speci men Type: BLOOD SPECIMENOrdering Facility: [facility] Address: [address] [place] [address] Performed By: #### 5 7021-8 ####[facility]ATORYCLIA [id number] [place] [id number] [place] Lymphocytes/100 WBC (Bld) 17.0 % Normal Comment on above: Order Comment: Speci men Type: BLOOD SPECIMENOrdering Facility: [facility] Address: [address] [place] [address] Performed By: #### 5 7021-8 ####[facility]ATORYCLIA [id number] [place] [id number] [place] MCH (RBC) [Entitic mass] 27.8 pg Normal 26.0-34.0 Comment on above: Order Comment: Speci men Type: BLOOD SPECIMENOrdering Facility: [facility] Address: [address] [place] [address] Performed By: #### 5 7021-8 ####[facility]ATORYCLIA [id number] [address] [place] MCHC (RBC) [Mass/Vol] 31.9 g/dL Normal 30.5-36.0 [facility] Comment on above: Order Comment: Speci men Type: BLOOD SPECIMENOrdering Facility: [facility] Address: [address] [place] [address] Performed By: #### 5 7021-8 ####[facility]ATORYCLIA [id number] [place] [address] [place] MCV (RBC) [Entitic vol] 87.2 fL Normal 80.0-100.0 Comment on above: Order Comment: Speci men Type: BLOOD SPECIMENOrdering Facility: [facility] Address: [address] [place] [address] Performed By: #### 5 7021-8 ####[facility]ATORYCLIA [id number] [address] [place] Metamyelocytes/100 WBC (Bld) 4.0 % Normal Comment on above: Order Comment: Speci men Type: BLOOD SPECIMENOrdering Facility: [facility] Address: [address] [place] [address] Performed By: #### 5 7021-8 ####[facility]ATORYCLIA [id number] [place] [address] [place] Monocytes (Bld) [#/Vol] 0.89 10*3/uL High <0.87 Comment on above: Order Comment: Speci men Type: BLOOD SPECIMENOrdering Facility: [facility] Address: [address] [place] [address] Performed By: #### 5 7021-8 ####[facility]ATORYCLIA [id number] [address] [place] Monocytes/100 WBC (Bld) 8.0 % Normal Comment on above: Order Comment: Speci men Type: BLOOD SPECIMENOrdering Facility: [facility] Address: [address] [place] [address] Performed By: #### 5 7021-8 ####[facility]ATORYCLIA [id number] [address] [place] MYELO% 1.0 % Normal Comment on above: Order Comment: Speci men Type: BLOOD SPECIMENOrdering Facility: [facility] Address: [address] [place] [address] Performed By: #### 5 7021-8 ####[facility]ATORYCLIA [id number] [address] [place] Neutrophils (Bld) [#/Vol] 7.69 10*3/uL High 1.45-7.50 Comment on above: Order Comment: Speci men Type: BLOOD SPECIMENOrdering Facility: [facility] Address: [address] [place] [address] Performed By: #### 5 7021-8 ####[facility]ATORYCLIA [id number] [address] Neutrophils/100 WBC (Bld) 69.0 % Normal Comment on above: Order Comment: Speci men Type: BLOOD SPECIMENOrdering Facility: [facility] Address: [address] [place] [address] Performed By: #### 5 7021-8 ####[facility]ATORYCLIA [id number] [place] [address] [place] Nucleated RBC (Bld) [#/Vol] 10*3/uL Normal <0.01 Comment on above: Order Comment: Speci men Type: BLOOD SPECIMENOrdering Facility: [facility] Address: [address] [place] [address] Performed By: #### 5 7021-8 ####[facility]ATORYCLIA [id number] [place] [address] [place] Nucleated RBC/100 WBC (Bld) [Ratio] 0.0 /100 WBC Normal Comment on above: Order Comment: Speci men Type: BLOOD SPECIMENOrdering Facility: [facility] Address: [address] [place] [address] Performed By: #### 5 7021-8 ####[facility]ATORYCLIA [id number] [place] [address] [place] Platelet mean volume (Bld) [Entitic vol] 11.0 fL Normal 9.0-12.7 Comment on above: Order Comment: Speci men Type: BLOOD SPECIMENOrdering Facility: [facility] Address: [address] [place] [address] Performed By: #### 5 7021-8 ####[facility]ATORYCLIA [id number] [place] [address] [place] Platelets (Bld) [#/Vol] 270 10*3/uL Normal 150-400 Comment on above: Order Comment: Speci men Type: BLOOD SPECIMENOrdering Facility: [facility] Address: [address] [place] [address] Performed By: #### 5 7021-8 ####[facility]ATORYCLIA [id number] [place] [address] [place] Platelets Estimate (Bld) [#/Vol] Adequate Normal Comment on above: Order Comment: Speci men Type: BLOOD SPECIMENOrdering Facility: [facility] Address: [address] [place] [address] Performed By: #### 5 7021-8 ####[facility]ATORYCLIA [id number] [place] [address] [place] Polychromasia LM Ql (Bld) Slight Normal Comment on above: Order Comment: Speci men Type: BLOOD SPECIMENOrdering Facility: [facility] Address: [address] [place] [address] Performed By: #### 5 7021-8 ####[facility]ATORYCLIA [id number] [address] STATES OF [facility] RBC (Bld) [#/Vol] 4.06 10*6/uL Normal 3.90-5.20 Comment on above: Order Comment: Speci men Type: BLOOD SPECIMENOrdering Facility: [facility] Address: [address] [place] [address] Performed By: #### 5 7021-8 ####[facility]ATORYCLIA [id number] [address] [place] RED CELL MORPH Reviewed: unremarkable Normal Comment on above: Order Comment: Speci men Type: BLOOD SPECIMENOrdering Facility: [facility] Address: [address] [place] [address] Performed By: #### 5 7021-8 ####[facility]ATORYCLIA [id number] [address] [place] WBC (Bld) [#/Vol] 11.14 10*3/uL High 3.70-11.00 [facility] Comment on above: Order Comment: Speci men Type: BLOOD SPECIMENOrdering Facility: [facility] Address: [address] [place] [address] Performed By: #### 5 7021-8 ####[facility]ATORYCLIA [id number] [address] WBC Left Shift Ql (Bld) Present [facility] Comment on above: Order Comment: Speci men Type: BLOOD SPECIMENOrdering Facility: [facility] Address: [address] [place] [address] Performed By: #### 5 7021-8 ####[facility]ATORYCLIA [id number] [address] OF [facility] CONSULT PROGon 10-30-2024 CONSULT PROG [facility] Magnesium SerPl-mCncon 10-30 Magnesium [Mass/Vol] 1.9 mg/dL Normal 1.6-2.6 [facility] Comment on above: Order Comment: Speci men Type: BLOOD SPECIMENOrdering Facility: [facility] Address: [address] [place] [address] Performed By: #### 2 4321-2, , 1 ####[facility]ATORYCLIA [id number] [place] [id number] [place] PT EDon 10-30-2024 PT ED Normal Phosphate SerPl-mCncon 10-30 Phosphate [Mass/Vol] 3.6 mg/dL Normal 2.5-4.9 [facility] Comment on above: Order Comment: Speci men Type: BLOOD SPECIMENOrdering Facility: [facility] Address: [address] [place] [address] Result Comment: Elev ated m-protein (paraprotein) levels in the serum may be exhibited in patients with monoclonal gammopathies, causing falsely elevated inorganic phosphorus results. Performed By: #### 2 4321-2, , 2776-08 ####[facility]ATORYCLIA [id number] [place] [id number] [place] aPTT PPPon 10-30-2024 aPTT Coag (PPP) [Time] 67.4 s High 23.0-32.4 [facility] Comment on above: Order Comment: Speci men Type: BLOOD SPECIMENOrdering Facility: [facility] Address: [address] [place] [address] Performed By: #### 1 4979-9 ####[facility]ATORYCLIA [id number] [place] [id number] [place] Basic metabolic 2000 panelon 10-29-2024 Anion gap [Moles/Vol] 7 mmol/L Normal 5-16 [facility] Comment on above: Order Comment: Speci men Type: BLOOD SPECIMENOrdering Facility: [facility] Address: [address] [facility] [place] [address] Performed By: #### 2 4321-2, , 27702-21 ####[facility]ATORYCLIA [id number] [place] [id number] [place] Calcium [Mass/Vol] 8.7 mg/dL Normal 8.5-10.5 Comment on above: Order Comment: Speci men Type: BLOOD SPECIMENOrdering Facility: [facility] Address: [address] [place] [address] Performed By: #### 2 4321-2, , 2776-08 ####[facility]ATORYCLIA [id number] [place] [id number] [place] Chloride [Moles/Vol] 105 mmol/L Normal 98-107 [facility] Comment on above: Order Comment: Speci men Type: BLOOD SPECIMENOrdering Facility: [facility] Address: [address] [place] [address] Performed By: #### 2 4321-2, , 2776-08 ####[facility]ATORYCLIA [id number] [place] [address] [place] CO2 [Moles/Vol] 25 mmol/L Normal 21-32 Comment on above: Order Comment: Speci men Type: BLOOD SPECIMENOrdering Facility: [facility] Address: [address] [place] [address] Performed By: #### 2 4321-2, , 2776-08 ####[facility]ATORYCLIA [id number] [place] [address] [place] Creatinine [Mass/Vol] 0.52 mg/dL Normal 0.51-0.95 [facility] Comment on above: Order Comment: Speci men Type: BLOOD SPECIMENOrdering Facility: [facility] Address: [address] [place] [address] Result Comment: Jose ents receiving either N-Acetylcysteine (NAC) or Metamizole prior to venipuncture, may have falsely depressed results. Performed By: #### 2 4321-2, , 2776-08 ####[facility]ATORYCLIA [id number] [place] [id number] [place] Creatinine and Glomerular filtration rate.predicted panel (S/P/Bld) 99 mL/min/1.73m??? Normal >=60 Comment on above: Order Comment: Jack alberts Type: BLOOD SPECIMENOrdering Facility: [facility] Address: [address] [place] [address] Result Comment: Alecia mated Glomerular Filtration Rate (eGFR) is calculated using the 2020 CKD-EPI creatinine equation. This equation utilizes serum creatinine, sex, and age as parameters. The creatinine assay has traceable calibration to isotope dilution-mass spectrometry. Refer to KDIGO guidelines for clinical interpretation. In patients with unstable renal function, e.g. those with acute kidney injury, the eGFR may not accurately reflect actual GFR. Performed By: #### 2 4321-2, 08576-0, 2776- ####[facility] LABORATORYCLIA [id number] [place] [id number] [place] Glucose [Mass/Vol] 304 mg/dL High 70-100 Comment on above: Order Comment: Jack alberts Type: BLOOD SPECIMENOrdering Facility: [facility] Address: [address] [place] [address] Result Comment: The [place] [employer] (ADA) provides guidance for cutoff values for fasting glucose and random glucose. The ADA defines fasting as no caloric intake for at least 8 hours. Fasting plasma glucose results between 100 to 125 mg/dL indicate increased risk for diabetes (prediabetes).Fasting plasma glucose results greater than or equal to 126 mg/dL meet the criteria for diagnosis of diabetes. In the absence of unequivocal hyperglycemia, results should be confirmed by repeat testing. In a patient with classic symptoms of hyperglycemia or hyperglycemic crisis, random plasma glucose results greater than or equal to 200 mg/dL meet the criteria for diagnosis of diabetes.Reference: Standards of Medical Care in Diabetes 2016, [place] [employer]. Diabetes Care. 2016.39(Suppl 1).Results may be falsely elevated after the administration of Sulfapyridine.Results may be falsely depressed after the administration of Sulfasalazine. Performed By: #### 2 4321-2, 77409-7, 2776- ####[facility]ATORYCLIA [id number] [place] [id number] [place] Potassium [Moles/Vol] 3.7 mmol/L Normal 3.5-5.1 [facility] Comment on above: Order Comment: Speci men Type: BLOOD SPECIMENOrdering Facility: [facility] Address: [facility] [place] [address] Performed By: #### 2 4321-2, , 2776-08 ####[facility]ORYCLIA [id number] [place] [id number] [place] Sodium [Moles/Vol] 137 mmol/L Normal 136-145 Comment on above: Order Comment: Speci men Type: BLOOD SPECIMENOrdering Facility: [facility] Address: [address] [place] [address] Performed By: #### 2 4321-2, , 2776-08 ####[facility]ORYCLIA [id number] [place] [id number] [place] Urea nitrogen [Mass/Vol] 13 mg/dL Normal 7-26 Comment on above: Order Comment: Speci men Type: BLOOD SPECIMENOrdering Facility: [facility] Address: [address] [place] [address] Performed By: #### 2 4321-2, , 2776-08 ####[facility]ORYCLIA [id number] [place] [id number] [place] CASE MANAGEMon 10-29-2024 CASE MANAGEM Normal CBC W Auto Differential pane l (Bld)on 10-29-2024 Basophils (Bld) [#/Vol] 0.00 10*3/uL Normal <0.11 Comment on above: Order Comment: Speci men Type: BLOOD SPECIMENOrdering Facility: [facility] Address: [address] [place] [address] Performed By: #### 5 7021-8 ####[facility]ORYCLIA [id number] [place] [id number] [place] Basophils/100 WBC (Bld) 0.0 % Normal Comment on above: Order Comment: Speci men Type: BLOOD SPECIMENOrdering Facility: [facility] Address: [address] [place] [address] Performed By: #### 5 7021-8 ####[facility]ATORYCLIA [id number] [place] [address] [place] Differential cell count method Nom (Bld) Manual Normal Comment on above: Order Comment: Speci men Type: BLOOD SPECIMENOrdering Facility: [facility] Address: [address] [place] [address] Performed By: #### 5 7021-8 ####[facility]ATORYCLIA [id number] [place] [address] [place] Eosinophils (Bld) [#/Vol] 0.25 10*3/uL Normal <0.46 Comment on above: Order Comment: Speci men Type: BLOOD SPECIMENOrdering Facility: [facility] Address: [address] [place] [address] Performed By: #### 5 7021-8 ####[facility]ATORYCLIA [id number] [address] [place] Eosinophils/100 WBC (Bld) 2.0 % Normal Comment on above: Order Comment: Speci men Type: BLOOD SPECIMENOrdering Facility: [facility] Address: [address] [place] [address] Performed By: #### 5 7021-8 ####[facility]ORYCLIA [id number] [address] [place] Erythrocyte distribution width (RBC) [Ratio] 13.8 % Normal 11.5-15.0 Comment on above: Order Comment: Speci men Type: BLOOD SPECIMENOrdering Facility: [facility] Address: [address] [place] [address] Performed By: #### 5 7021-8 ####[facility]ATORYCLIA [id number] [place] [address] [place] Hematocrit (Bld) [Volume fraction] 36.1 % Normal 36.0-46.0 Comment on above: Order Comment: Speci men Type: BLOOD SPECIMENOrdering Facility: [facility] Address: [address] [place] [address] Performed By: #### 5 7021-8 ####[facility]ATORYCLIA [id number] [place] [id number] [place] Hemoglobin (Bld) [Mass/Vol] 11.5 g/dL Normal 11.5-15.5 Comment on above: Order Comment: Speci men Type: BLOOD SPECIMENOrdering Facility: [facility] Address: [address] [place] [address] Performed By: #### 5 7021-8 ####[facility]ATORYCLIA [id number] [place] [address] [place] Lymphocytes (Bld) [#/Vol] 1.50 10*3/uL Normal 1.00-4.00 Comment on above: Order Comment: Speci men Type: BLOOD SPECIMENOrdering Facility: [facility] Address: [address] [place] [address] Performed By: #### 5 7021-8 ####[facility]ATORYCLIA [id number] [address] [place] Lymphocytes/100 WBC (Bld) 12.0 % Normal Comment on above: Order Comment: Speci men Type: BLOOD SPECIMENOrdering Facility: [facility] Address: [address] [place] [address] Performed By: #### 5 7021-8 ####[facility]ATORYCLIA [id number] [place] [address] [place] MCH (RBC) [Entitic mass] 28.0 pg Normal 26.0-34.0 Comment on above: Order Comment: Speci men Type: BLOOD SPECIMENOrdering Facility: [facility] Address: [address] [place] [address] Performed By: #### 5 7021-8 ####[facility]ATORYCLIA [id number] [place] [address] [place] MCHC (RBC) [Mass/Vol] 31.9 g/dL Normal 30.5-36.0 [facility] Comment on above: Order Comment: Speci men Type: BLOOD SPECIMENOrdering Facility: [facility] Address: [address] [place] [address] Performed By: #### 5 7021-8 ####[facility]ATORYCLIA [id number] [place] [address] [place] MCV (RBC) [Entitic vol] 87.8 fL Normal 80.0-100.0 Comment on above: Order Comment: Speci men Type: BLOOD SPECIMENOrdering Facility: [facility] Address: [address] [place] [address] Performed By: #### 5 7021-8 ####[facility]ATORYCLIA [id number] [address] [place] Metamyelocytes/100 WBC (Bld) 4.0 % Normal Comment on above: Order Comment: Speci men Type: BLOOD SPECIMENOrdering Facility: [facility] Address: [address] [place] [address] Performed By: #### 5 7021-8 ####[facility]ATORYCLIA [id number] [address] [place] Monocytes (Bld) [#/Vol] 0.50 10*3/uL Normal <0.87 Comment on above: Order Comment: Speci men Type: BLOOD SPECIMENOrdering Facility: [facility] Address: [address] [place] [address] Performed By: #### 5 7021-8 ####[facility]ATORYCLIA [id number] [address] [place] Monocytes/100 WBC (Bld) 4.0 % Normal Comment on above: Order Comment: Speci men Type: BLOOD SPECIMENOrdering Facility: [facility] Address: [address] [place] [address] Performed By: #### 5 7021-8 ####[facility]ATORYCLIA [id number] [place] [id number] [place] Neutrophils (Bld) [#/Vol] 9.77 10*3/uL High 1.45-7.50 Comment on above: Order Comment: Speci men Type: BLOOD SPECIMENOrdering Facility: [facility] Address: [address] [place] [address] Performed By: #### 5 7021-8 ####[facility]ATORYCLIA [id number] [place] [id number] [place] Neutrophils/100 WBC (Bld) 78.0 % Normal Comment on above: Order Comment: Speci men Type: BLOOD SPECIMENOrdering Facility: [facility] Address: [address] [place] [address] Performed By: #### 5 7021-8 ####[facility]ATORYCLIA [id number] [place] [address] [place] Nucleated RBC (Bld) [#/Vol] 10*3/uL Normal <0.01 Comment on above: Order Comment: Speci men Type: BLOOD SPECIMENOrdering Facility: [facility] Address: [address] [place] [address] Performed By: #### 5 7021-8 ####[facility]ATORYCLIA [id number] [place] [id number] [place] Nucleated RBC/100 WBC (Bld) [Ratio] 0.0 /100 WBC Normal Comment on above: Order Comment: Speci men Type: BLOOD SPECIMENOrdering Facility: [facility] Address: [address] [place] [address] Performed By: #### 5 7021-8 ####[facility]ATORYCLIA [id number] [place] [id number] [place] Platelet mean volume (Bld) [Entitic vol] 9.8 fL Normal 9.0-12.7 Comment on above: Order Comment: Speci men Type: BLOOD SPECIMENOrdering Facility: [facility] Address: [address] [place] [address] Performed By: #### 5 7021-8 ####[facility]ATORYCLIA [id number] [address] [place] Platelets (Bld) [#/Vol] 350 10*3/uL Normal 150-400 Comment on above: Order Comment: Speci men Type: BLOOD SPECIMENOrdering Facility: [facility] Address: [address] [place] [address] Performed By: #### 5 7021-8 ####[facility]ATORYCLIA [id number] [address] Platelets Estimate (Bld) [#/Vol] Adequate Normal Comment on above: Order Comment: Speci men Type: BLOOD SPECIMENOrdering Facility: [facility] Address: [address] [place] [address] Performed By: #### 5 7021-8 ####[facility]ATORYCLIA [id number] [address] [place] Polychromasia LM Ql (Bld) Slight Normal Comment on above: Order Comment: Speci men Type: BLOOD SPECIMENOrdering Facility: [facility] Address: [address] [place] [address] Performed By: #### 5 7021-8 ####[facility]ATORYCLIA [id number] [place] [address] [place] RBC (Bld) [#/Vol] 4.11 10*6/uL Normal 3.90-5.20 Comment on above: Order Comment: Speci men Type: BLOOD SPECIMENOrdering Facility: [facility] Address: [address] [place] [address] Performed By: #### 5 7021-8 ####[facility]ATORYCLIA [id number] [place] [address] [place] RED CELL MORPH Reviewed: unremarkable Normal Comment on above: Order Comment: Speci men Type: BLOOD SPECIMENOrdering Facility: [facility] Address: [address] [place] [address] Performed By: #### 5 7021-8 ####[facility]ATORYCLIA [id number] [place] [address] [place] WBC (Bld) [#/Vol] 12.52 10*3/uL High 3.70-11.00 [facility] Comment on above: Order Comment: Speci men Type: BLOOD SPECIMENOrdering Facility: [facility] Address: [address] [place] [address] Performed By: #### 5 7021-8 ####[facility]ATORYCLIA [id number] [place] [address] [place] WBC Left Shift Ql (Bld) Present Normal Comment on above: Order Comment: Speci men Type: BLOOD SPECIMENOrdering Facility: [facility] Address: [address] [place] [address] Performed By: #### 5 7021-8 ####[facility]ATORYCLIA [id number] [place] [address] [place] Magnesium SerPl-mCncon 10-29 Magnesium [Mass/Vol] 1.6 mg/dL Normal 1.6-2.6 [facility] Comment on above: Order Comment: Speci men Type: BLOOD SPECIMENOrdering Facility: [facility] Address: [address] [place] [address] Performed By: #### 2 4321-2, 14416-7, 2777-1 ####[facility]ATORYCLIA [id number] [place] [address] [place] Phosphate SerPl-mCncon 10-29 Phosphate [Mass/Vol] 3.1 mg/dL Normal 2.5-4.9 [facility] Comment on above: Order Comment: Speci men Type: BLOOD SPECIMENOrdering Facility: [facility] Address: [address] [place] [address] Result Comment: Elev ated m-protein (paraprotein) levels in the serum may be exhibited in patients with monoclonal gammopathies, causing falsely elevated inorganic phosphorus results. Performed By: #### 2 4321-2, 21542-2, 2777-1 ####[facility]ATORYCLIA [id number] [place] [address] [place] [facility] aPTT PPPon 10-29-2024 aPTT Coag (PPP) [Time] 71.5 s High 23.0-32.4 [facility] Comment on above: Order Comment: Speci men Type: BLOOD SPECIMENOrdering Facility: [facility] Address: [address] [place] [address] Performed By: #### 1 4979-9 ####[facility]ATORYCLIA [id number] [address] aPTT Coag (PPP) [Time] 74.0 s High 23.0-32.4 [facility] Comment on above: Order Comment: Speci men Type: BLOOD SPECIMENOrdering Facility: [facility] Address: [address] [place] [address] Performed By: #### 1 4979-9 ####[facility]ATORYCLIA [id number] [address] aPTT Coag (PPP) [Time] 50.4 s High 23.0-32.4 [facility] Comment on above: Order Comment: Speci men Type: BLOOD SPECIMENOrdering Facility: [facility] Address: [address] [place] [address] Performed By: #### 1 4979-9 ####[facility]ATORYCLIA [id number] [address] [place] BRIEF OP NOTon 10-28-2024 BRIEF OP NOT Normal Basic metabolic 2000 panelon 10-28-2024 Anion gap [Moles/Vol] 7 mmol/L Normal 5-16 [facility] Comment on above: Order Comment: Speci men Type: BLOOD SPECIMENOrdering Facility: [facility] Address: [address] [place], [place] [address] Performed By: #### 2 4321-2, , 2776-08 ####[facility]ATORYCLIA [id number] [place] [id number] [place] Calcium [Mass/Vol] 9.3 mg/dL Normal 8.5-10.5 Comment on above: Order Comment: Speci men Type: BLOOD SPECIMENOrdering Facility: [facility] Address: [address] [place] [address] Performed By: #### 2 4321-2, , 2776-08 ####[facility]ATORYCLIA [id number] [place] [address] [place] Chloride [Moles/Vol] 106 mmol/L Normal 98-107 [facility] Comment on above: Order Comment: Speci men Type: BLOOD SPECIMENOrdering Facility: [facility] Address: [address] [place] [address] Performed By: #### 2 4321-2, , 2776-08 ####[facility]ATORYCLIA [id number] [place] [id number] [place] CO2 [Moles/Vol] 23 mmol/L Normal 21-32 Comment on above: Order Comment: Speci men Type: BLOOD SPECIMENOrdering Facility: [facility] Address: [address] [place] [address] Performed By: #### 2 4321-2, , 2776-08 ####[facility]ATORYCLIA [id number] [place] [address] [place] Creatinine [Mass/Vol] 0.57 mg/dL Normal 0.51-0.95 [facility] Comment on above: Order Comment: Speci men Type: BLOOD SPECIMENOrdering Facility: [facility] Address: [address] [place] [address] Result Comment: Jose ents receiving either N-Acetylcysteine (NAC) or Metamizole prior to venipuncture, may have falsely depressed results. Performed By: #### 2 4321-2, 23192-3, 2777-1 ####[facility]ATORYCLIA [id number] [place] [id number] [place] Creatinine and Glomerular filtration rate.predicted panel (S/P/Bld) 97 mL/min/1.73m??? Normal >=60 Comment on above: Order Comment: Jack alberts Type: BLOOD SPECIMENOrdering Facility: [facility] Address: [address] [place] [address] Result Comment: Alecia mated Glomerular Filtration Rate (eGFR) is calculated using the 2020 CKD-EPI creatinine equation. This equation utilizes serum creatinine, sex, and age as parameters. The creatinine assay has traceable calibration to isotope dilution-mass spectrometry. Refer to KDIGO guidelines for clinical interpretation. In patients with unstable renal function, e.g. those with acute kidney injury, the eGFR may not accurately reflect actual GFR. Performed By: #### 2 4321-2, 24711-4, 277-1 ####[facility]ATORYCLIA [id number] [place] [id number] [place] Glucose [Mass/Vol] 207 mg/dL High 70-100 Comment on above: Order Comment: Jack alberts Type: BLOOD SPECIMENOrdering Facility: [facility] Address: [address] [place] [address] Result Comment: The [place] [employer] (ADA) provides guidance for cutoff values for fasting glucose and random glucose. The ADA defines fasting as no caloric intake for at least 8 hours. Fasting plasma glucose results between 100 to 125 mg/dL indicate increased risk for diabetes (prediabetes).Fasting plasma glucose results greater than or equal to 126 mg/dL meet the criteria for diagnosis of diabetes. In the absence of unequivocal hyperglycemia, results should be confirmed by repeat testing. In a patient with classic symptoms of hyperglycemia or hyperglycemic crisis, random plasma glucose results greater than or equal to 200 mg/dL meet the criteria for diagnosis of diabetes.Reference: Standards of Medical Care in Diabetes 2016, [place] [employer]. Diabetes Care. 2016.39(Suppl 1).Results may be falsely elevated after the administration of Sulfapyridine.Results may be falsely depressed after the administration of Sulfasalazine. Performed By: #### 2 4321-2, 83559-0, 1 ####[facility]ATORYCLIA [id number] [place] [id number] [place] Potassium [Moles/Vol] 4.2 mmol/L Normal 3.5-5.1 [facility] Comment on above: Order Comment: Speci men Type: BLOOD SPECIMENOrdering Facility: [facility] Address: [address] [place] [address] Performed By: #### 2 4321-2, , 2776-08 ####[facility]ATORYCLIA [id number] [place] [address] [place] Sodium [Moles/Vol] 136 mmol/L Normal 136-145 Comment on above: Order Comment: Speci men Type: BLOOD SPECIMENOrdering Facility: [facility] Address: [address] [place] [address] Performed By: #### 2 4321-2, , 2776-08 ####[facility]ATORYCLIA [id number] [place] [id number] [place] Urea nitrogen [Mass/Vol] 13 mg/dL Normal 7-26 Comment on above: Order Comment: Speci men Type: BLOOD SPECIMENOrdering Facility: [facility] Address: [address] [place] [address] Performed By: #### 2 4321-2, , 2776-08 ####[facility]ATORYCLIA [id number] [place] [id number] [place] CASE MANAGEMon 10-28-2024 CASE MANAGEM Normal CBC W Auto Differential pane l (Bld)on 10-28-2024 Basophils (Bld) [#/Vol] 0.00 10*3/uL Normal <0.11 Comment on above: Order Comment: Speci men Type: BLOOD SPECIMENOrdering Facility: [facility] Address: [address] [place] [address] Performed By: #### 5 7021-8 ####[facility]ATORYCLIA [id number] [address] [place] Basophils/100 WBC (Bld) 0.0 % Normal Comment on above: Order Comment: Speci men Type: BLOOD SPECIMENOrdering Facility: [facility] Address: [address] [place] [address] Performed By: #### 5 7021-8 ####[facility]ATORYCLIA [id number] [address] [place] Differential cell count method Nom (Bld) Manual Normal Comment on above: Order Comment: Speci men Type: BLOOD SPECIMENOrdering Facility: [facility] Address: [address] [place] [address] Performed By: #### 5 7021-8 ####[facility]ATORYCLIA [id number] [place] [address] [place] Eosinophils (Bld) [#/Vol] 0.17 10*3/uL Normal <0.46 Comment on above: Order Comment: Speci men Type: BLOOD SPECIMENOrdering Facility: [facility] Address: [address] [place] [address] Performed By: #### 5 7021-8 ####[facility]ATORYCLIA [id number] [address] [place] Eosinophils/100 WBC (Bld) 1.0 % Normal Comment on above: Order Comment: Speci men Type: BLOOD SPECIMENOrdering Facility: [facility] Address: [address] [place] [address] Performed By: #### 5 7021-8 ####[facility]ORATORYCLIA [id number] [address] [place] Erythrocyte distribution width (RBC) [Ratio] 14.0 % Normal 11.5-15.0 Comment on above: Order Comment: Speci men Type: BLOOD SPECIMENOrdering Facility: [facility] Address: [address] [place] [address] Performed By: #### 5 7021-8 ####[facility]ORATORYCLIA [id number] [place] [id number] [place] Hematocrit (Bld) [Volume fraction] 35.7 % Low 36.0-46.0 Comment on above: Order Comment: Speci men Type: BLOOD SPECIMENOrdering Facility: [facility] Address: [address] [place] [address] Performed By: #### 5 7021-8 ####[facility]ATORYCLIA [id number] [place] [address] [place] Hemoglobin (Bld) [Mass/Vol] 12.0 g/dL Normal 11.5-15.5 Comment on above: Order Comment: Speci men Type: BLOOD SPECIMENOrdering Facility: [facility] Address: [address] [place] [address] Performed By: #### 5 7021-8 ####[facility]ATORYCLIA [id number] [place] [address] [place] Lymphocytes (Bld) [#/Vol] 3.67 10*3/uL Normal 1.00-4.00 Comment on above: Order Comment: Speci men Type: BLOOD SPECIMENOrdering Facility: [facility] Address: [address] [place] [address] Performed By: #### 5 7021-8 ####[facility]ATORYCLIA [id number] [place] [id number] [place] Lymphocytes/100 WBC (Bld) 21.0 % Normal Comment on above: Order Comment: Speci men Type: BLOOD SPECIMENOrdering Facility: [facility] Address: [address] [place] [address] Performed By: #### 5 7021-8 ####[facility]ATORYCLIA [id number] [place] [id number] [place] MCH (RBC) [Entitic mass] 29.3 pg Normal 26.0-34.0 Comment on above: Order Comment: Speci men Type: BLOOD SPECIMENOrdering Facility: [facility] Address: [address] [place] [address] Performed By: #### 5 7021-8 ####[facility]ATORYCLIA [id number] [place] [address] [place] MCHC (RBC) [Mass/Vol] 33.6 g/dL Normal 30.5-36.0 [facility] Comment on above: Order Comment: Speci men Type: BLOOD SPECIMENOrdering Facility: [facility] Address: [address] [place] [address] Performed By: #### 5 7021-8 ####[facility]ATORYCLIA [id number] [place] [address] [place] MCV (RBC) [Entitic vol] 87.1 fL Normal 80.0-100.0 Comment on above: Order Comment: Speci men Type: BLOOD SPECIMENOrdering Facility: [facility] Address: [address] [place] [address] Performed By: #### 5 7021-8 ####[facility]ATORYCLIA [id number] [place] [address] [place] Metamyelocytes/100 WBC (Bld) 3.0 % Normal Comment on above: Order Comment: Speci men Type: BLOOD SPECIMENOrdering Facility: [facility] Address: [address] [place] [address] Performed By: #### 5 7021-8 ####[facility]ATORYCLIA [id number] [place] [address] [place] Monocytes (Bld) [#/Vol] 1.05 10*3/uL High <0.87 Comment on above: Order Comment: Speci men Type: BLOOD SPECIMENOrdering Facility: [facility] Address: [address] [place] [address] Performed By: #### 5 7021-8 ####[facility]ATORYCLIA [id number] [place] [address] [place] Monocytes/100 WBC (Bld) 6.0 % Normal Comment on above: Order Comment: Speci men Type: BLOOD SPECIMENOrdering Facility: [facility] Address: [address] [place] [address] Performed By: #### 5 7021-8 ####[facility]ATORYCLIA [id number] [place] [id number] [place] Neutrophils (Bld) [#/Vol] 12.06 10*3/uL High 1.45-7.50 Comment on above: Order Comment: Speci men Type: BLOOD SPECIMENOrdering Facility: [facility] Address: [address] [place] [address] Performed By: #### 5 7021-8 ####[facility]ATORYCLIA [id number] [place] [address] [place] Neutrophils/100 WBC (Bld) 69.0 % Normal Comment on above: Order Comment: Speci men Type: BLOOD SPECIMENOrdering Facility: [facility] Address: [address] [place] [address] Performed By: #### 5 7021-8 ####[facility]ATORYCLIA [id number] [place] [id number] [place] Nucleated RBC (Bld) [#/Vol] 10*3/uL Normal <0.01 Comment on above: Order Comment: Speci men Type: BLOOD SPECIMENOrdering Facility: [facility] Address: [address] [place] [address] Performed By: #### 5 7021-8 ####[facility]ATORYCLIA [id number] [place] [address] [place] Nucleated RBC/100 WBC (Bld) [Ratio] 0.0 /100 WBC Normal Comment on above: Order Comment: Speci men Type: BLOOD SPECIMENOrdering Facility: [facility] Address: [address] [place] [address] Performed By: #### 5 7021-8 ####[facility]ATORYCLIA [id number] [place] [address] [place] Platelet mean volume (Bld) [Entitic vol] 9.7 fL Normal 9.0-12.7 Comment on above: Order Comment: Speci men Type: BLOOD SPECIMENOrdering Facility: [facility] Address: [address] [place] [address] Performed By: #### 5 7021-8 ####[facility]ORYCLIA [id number] [place] [address] [place] Platelets (Bld) [#/Vol] 282 10*3/uL Normal 150-400 Comment on above: Order Comment: Speci men Type: BLOOD SPECIMENOrdering Facility: [facility] Address: [address] [place] [address] Performed By: #### 5 7021-8 ####[facility]ATORYCLIA [id number] [place] [address] [place] Platelets Estimate (Bld) [#/Vol] Adequate Normal Comment on above: Order Comment: Speci men Type: BLOOD SPECIMENOrdering Facility: [facility] Address: [address] [place] [address] Performed By: #### 5 7021-8 ####[facility]ATORYCLIA [id number] [place] [address] [place] Polychromasia LM Ql (Bld) Slight Normal Comment on above: Order Comment: Speci men Type: BLOOD SPECIMENOrdering Facility: [facility] Address: [address] [place] [address] Performed By: #### 5 7021-8 ####[facility]ORYCLIA [id number] [place] [address] [place] RBC (Bld) [#/Vol] 4.10 10*6/uL Normal 3.90-5.20 Comment on above: Order Comment: Speci men Type: BLOOD SPECIMENOrdering Facility: [facility] Address: [address] [place] [address] Performed By: #### 5 7021-8 ####[facility]ATORYCLIA [id number] [address] STATES OF [facility] RED CELL MORPH Reviewed: unremarkable Normal Comment on above: Order Comment: Speci men Type: BLOOD SPECIMENOrdering Facility: [facility] Address: [address] [place] [address] Performed By: #### 5 7021-8 ####[facility]ATORYCLIA [id number] [place] [address] [place] WBC (Bld) [#/Vol] 17.48 10*3/uL High 3.70-11.00 [facility] Comment on above: Order Comment: Speci men Type: BLOOD SPECIMENOrdering Facility: [facility] Address: [address] [place] [address] Performed By: #### 5 7021-8 ####[facility]ATORYCLIA [id number] [address] STATES [facility] WBC Left Shift Ql (Bld) Present Normal Comment on above: Order Comment: Speci men Type: BLOOD SPECIMENOrdering Facility: [facility] Address: [address] [place] [address] Performed By: #### 5 7021-8 ####[facility]ATORYCLIA [id number] [place] [address] [place] CONSULT PROGon 10-28-2024 CONSULT PROG Normal ECG COMPLETEon 10-28-2024 ECG COMPLETE [facility] HISTORY PHYSICALon HISTORY PHYSICAL Normal IR EXCHANGE NEPH TUBEon IR EXCHANGE NEPH TUBE Normal [facility] IR NEPHROSTOGRAMon IR NEPHROSTOGRAM Normal IR PLC STENT URETER VIA EXIS TINGon 10-28-2024 IR PLC STENT URETER VIA EXISTING Normal Magnesium SerPl-mCncon 10-28 Magnesium [Mass/Vol] 1.9 mg/dL Normal 1.6-2.6 [facility] Comment on above: Order Comment: Speci men Type: BLOOD SPECIMENOrdering Facility: [facility] Address: [address] [place], [place] [address] Performed By: #### 2 4321-2, , 2776-08 ####[facility]ATORYCLIA [id number] [place] [id number] [place] Phosphate SerPl-mCncon 10-28 Phosphate [Mass/Vol] 2.9 mg/dL Normal 2.5-4.9 [facility] Comment on above: Order Comment: Speci men Type: BLOOD SPECIMENOrdering Facility: [facility] Address: [address] [place] [address] Result Comment: Elev ated m-protein (paraprotein) levels in the serum may be exhibited in patients with monoclonal gammopathies, causing falsely elevated inorganic phosphorus results. Performed By: #### 2 4321-2, , 2776-08 ####[facility]ATORYCLIA [id number] [place] [id number] [place] aPTT PPPon 10-28-2024 aPTT Coag (PPP) [Time] 55.5 s High 23.0-32.4 [facility] Comment on above: Order Comment: Speci men Type: BLOOD SPECIMENOrdering Facility: [facility] Address: [address] [place] [address] Performed By: #### 1 4979-9 ####[facility]ATORYCLIA [id number] [place] [id number] [place] Basic metabolic 2000 panelon 10-27-2024 Anion gap [Moles/Vol] 5 mmol/L Normal 5-16 [facility] Comment on above: Order Comment: Speci men Type: BLOOD SPECIMENOrdering Facility: [facility] Address: [address] [place] [address] Performed By: #### 2 4321-2, , 2776-08 ####[facility]ATORYCLIA [id number] [place] [address] [place] Calcium [Mass/Vol] 8.8 mg/dL Normal 8.5-10.5 Comment on above: Order Comment: Speci men Type: BLOOD SPECIMENOrdering Facility: [facility] Address: [address] [place] [address] Performed By: #### 2 4321-2, , 2776-08 ####[facility]ATORYCLIA [id number] [place] [id number] [place] Chloride [Moles/Vol] 102 mmol/L Normal 98-107 [facility] Comment on above: Order Comment: Speci men Type: BLOOD SPECIMENOrdering Facility: [facility] Address: [address] [place] [address] Performed By: #### 2 4321-2, , 2776-08 ####[facility]ATORYCLIA [id number] [place] [address] [place] CO2 [Moles/Vol] 25 mmol/L Normal 21-32 Comment on above: Order Comment: Speci men Type: BLOOD SPECIMENOrdering Facility: [facility] Address: [address] [place] [address] Performed By: #### 2 4321-2, , 2776-08 ####[facility]ATORYCLIA [id number] [place] [id number] [place] Creatinine [Mass/Vol] 0.64 mg/dL Normal 0.51-0.95 [facility] Comment on above: Order Comment: Speci men Type: BLOOD SPECIMENOrdering Facility: [facility] Address: [address] [place] [address] Result Comment: Jose ents receiving either N-Acetylcysteine (NAC) or Metamizole prior to venipuncture, may have falsely depressed results. Performed By: #### 2 4321-2, , 2776-08 ####[facility]ATORYCLIA [id number] [facility] [address] [place] Creatinine and Glomerular filtration rate.predicted panel (S/P/Bld) 95 mL/min/1.73m??? Normal >=60 Comment on above: Order Comment: Jack alberts Type: BLOOD SPECIMENOrdering Facility: [facility] Address: [address] [place] [address] Result Comment: Alecia mated Glomerular Filtration Rate (eGFR) is calculated using the 2020 CKD-EPI creatinine equation. This equation utilizes serum creatinine, sex, and age as parameters. The creatinine assay has traceable calibration to isotope dilution-mass spectrometry. Refer to KDIGO guidelines for clinical interpretation. In patients with unstable renal function, e.g. those with acute kidney injury, the eGFR may not accurately reflect actual GFR. Performed By: #### 2 4321-2, 12273-6, 2776- ####[facility]ATORYCLIA [id number] [place] [address] [place] Glucose [Mass/Vol] 202 mg/dL High 70-100 Comment on above: Order Comment: Jack alberts Type: BLOOD SPECIMENOrdering Facility: [facility] Address: [address] [place] [address] Result Comment: The [place] [employer] (ADA) provides guidance for cutoff values for fasting glucose and random glucose. The ADA defines fasting as no caloric intake for at least 8 hours. Fasting plasma glucose results between 100 to 125 mg/dL indicate increased risk for diabetes (prediabetes).Fasting plasma glucose results greater than or equal to 126 mg/dL meet the criteria for diagnosis of diabetes. In the absence of unequivocal hyperglycemia, results should be confirmed by repeat testing. In a patient with classic symptoms of hyperglycemia or hyperglycemic crisis, random plasma glucose results greater than or equal to 200 mg/dL meet the criteria for diagnosis of diabetes.Reference: Standards of Medical Care in Diabetes 2016, [place] [employer]. Diabetes Care. 2016.39(Suppl 1).Results may be falsely elevated after the administration of Sulfapyridine.Results may be falsely depressed after the administration of Sulfasalazine. Performed By: #### 2 4321-2, 82492-0, 7- ####[facility]ATORYCLIA [id number] [place] [address] [place] Potassium [Moles/Vol] 3.7 mmol/L Normal 3.5-5.1 [facility] Comment on above: Order Comment: Speci men Type: BLOOD SPECIMENOrdering Facility: [facility] Address: [address] [place] [address] Performed By: #### 2 4321-2, 61399-2, 1 ####[facility]ATORYCLIA [id number] [place] [address] [place] Sodium [Moles/Vol] 132 mmol/L Low 136-145 Comment on above: Order Comment: Speci men Type: BLOOD SPECIMENOrdering Facility: [facility] Address: [address] [place] [address] Performed By: #### 2 4321-2, , 2776-08 ####[facility]ATORYCLIA [id number] [place] [address] [place] Urea nitrogen [Mass/Vol] 15 mg/dL Normal 7-26 Comment on above: Order Comment: Speci men Type: BLOOD SPECIMENOrdering Facility: [facility] Address: [address] [place] [address] Performed By: #### 2 4321-2, , 1 ####[facility]ATORYCLIA [id number] [place] [address] [place] CBC W Auto Differential pane l (Bld)on 10-27-2024 Basophils (Bld) [#/Vol] 0.07 10*3/uL Normal <0.11 Comment on above: Order Comment: Speci men Type: BLOOD SPECIMENOrdering Facility: [facility] Address: [address] [place] [address] Performed By: #### 5 7021-8 ####[facility]ATORYCLIA [id number] [address] [place] Basophils/100 WBC (Bld) 0.4 % Normal Comment on above: Order Comment: Speci men Type: BLOOD SPECIMENOrdering Facility: [facility] Address: [address] [place] [address] Performed By: #### 5 7021-8 ####[facility]ATORYCLIA [id number] [place] [address] [place] Differential cell count method Nom (Bld) Auto Normal Comment on above: Order Comment: Speci men Type: BLOOD SPECIMENOrdering Facility: [facility] Address: [address] [place] [address] Performed By: #### 5 7021-8 ####[facility]ATORYCLIA [id number] [place] [address] [place] Eosinophils (Bld) [#/Vol] 0.14 10*3/uL Normal <0.46 Comment on above: Order Comment: Speci men Type: BLOOD SPECIMENOrdering Facility: [facility] Address: [address] [place] [address] Performed By: #### 5 7021-8 ####[facility]ATORYCLIA [id number] [address] [place] Eosinophils/100 WBC (Bld) 0.8 % Normal Comment on above: Order Comment: Speci men Type: BLOOD SPECIMENOrdering Facility: [facility] Address: [address] [place] [address] Performed By: #### 5 7021-8 ####[facility]ATORYCLIA [id number] [address] [place] Erythrocyte distribution width (RBC) [Ratio] 14.1 % Normal 11.5-15.0 Comment on above: Order Comment: Speci men Type: BLOOD SPECIMENOrdering Facility: [facility] Address: [address] [place] [address] Performed By: #### 5 7021-8 ####[facility]ATORYCLIA [id number] [place] [address] [place] Hematocrit (Bld) [Volume fraction] 33.7 % Low .0-46.0 Comment on above: Order Comment: Speci men Type: BLOOD SPECIMENOrdering Facility: [facility] Address: [address] [place] [address] Performed By: #### 5 7021-8 ####[facility]ATORYCLIA [id number] [place] [id number] [place] Hemoglobin (Bld) [Mass/Vol] 11.1 g/dL Low 11.5-15.5 Comment on above: Order Comment: Speci men Type: BLOOD SPECIMENOrdering Facility: [facility] Address: [address] [place] [address] Performed By: #### 5 7021-8 ####[facility]ATORYCLIA [id number] [place] [address] [place] Immature granulocytes (Bld) [#/Vol] 0.59 10*3/uL High <0.10 Comment on above: Order Comment: Speci men Type: BLOOD SPECIMENOrdering Facility: [facility] Address: [address] [place] [address] Performed By: #### 5 7021-8 ####[facility]ATORYCLIA [id number] [place] [address] [place] Immature granulocytes/100 WBC (Bld) 3.5 % Normal Comment on above: Order Comment: Speci men Type: BLOOD SPECIMENOrdering Facility: [facility] Address: [address] [place] [address] Performed By: #### 5 7021-8 ####[facility]ATORYCLIA [id number] [place] [address] [place] Lymphocytes (Bld) [#/Vol] 1.41 10*3/uL Normal 1.00-4.00 Comment on above: Order Comment: Speci men Type: BLOOD SPECIMENOrdering Facility: [facility] Address: [address] [place] [address] Performed By: #### 5 7021-8 ####[facility]ATORYCLIA [id number] [address] [place] Lymphocytes/100 WBC (Bld) 8.3 % Normal Comment on above: Order Comment: Speci men Type: BLOOD SPECIMENOrdering Facility: [facility] Address: [address] [place] [address] Performed By: #### 5 7021-8 ####[facility]ATORYCLIA [id number] [address] [place] MCH (RBC) [Entitic mass] 28.4 pg Normal 26.0-34.0 Comment on above: Order Comment: Speci men Type: BLOOD SPECIMENOrdering Facility: [facility] Address: [address] [place] [address] Performed By: #### 5 7021-8 ####[facility]ATORYCLIA [id number] [address] [place] MCHC (RBC) [Mass/Vol] 32.9 g/dL Normal 30.5-36.0 [facility] Comment on above: Order Comment: Speci men Type: BLOOD SPECIMENOrdering Facility: [facility] Address: [address] [place] [address] Performed By: #### 5 7021-8 ####[facility]ATORYCLIA [id number] [address] [place] MCV (RBC) [Entitic vol] 86.2 fL Normal 80.0-100.0 Comment on above: Order Comment: Speci men Type: BLOOD SPECIMENOrdering Facility: [facility] Address: [address] [place] [address] Performed By: #### 5 7021-8 ####[facility]ATORYCLIA [id number] [address] [place] Monocytes (Bld) [#/Vol] 1.04 10*3/uL High <0.87 Comment on above: Order Comment: Speci men Type: BLOOD SPECIMENOrdering Facility: [facility] Address: [address] [place] [address] Performed By: #### 5 7021-8 ####[facility]ATORYCLIA [id number] [place] [id number] [place] Monocytes/100 WBC (Bld) 6.1 % Normal Comment on above: Order Comment: Speci men Type: BLOOD SPECIMENOrdering Facility: [facility] Address: [address] [place] [address] Performed By: #### 5 7021-8 ####[facility]ATORYCLIA [id number] [place] [id number] [place] Neutrophils (Bld) [#/Vol] 13.67 10*3/uL High 1.45-7.50 Comment on above: Order Comment: Speci men Type: BLOOD SPECIMENOrdering Facility: [facility] Address: [address] [place] [address] Performed By: #### 5 7021-8 ####[facility]ATORYCLIA [id number] [place] [address] [place] Neutrophils/100 WBC (Bld) 80.9 % Normal Comment on above: Order Comment: Speci men Type: BLOOD SPECIMENOrdering Facility: [facility] Address: [address] [place] [address] Performed By: #### 5 7021-8 ####[facility]ATORYCLIA [id number] [place] [id number] [place] Nucleated RBC (Bld) [#/Vol] 10*3/uL Normal <0.01 Comment on above: Order Comment: Speci men Type: BLOOD SPECIMENOrdering Facility: [facility] Address: [address] [place] [address] Performed By: #### 5 7021-8 ####[facility]ATORYCLIA [id number] [place] [id number] [place] Nucleated RBC/100 WBC (Bld) [Ratio] 0.0 /100 WBC Normal Comment on above: Order Comment: Speci men Type: BLOOD SPECIMENOrdering Facility: [facility] Address: [address] [place] [address] Performed By: #### 5 7021-8 ####[facility]ATORYCLIA [id number] [place] [id number] [place] Platelet mean volume (Bld) [Entitic vol] 9.8 fL Normal 9.0-12.7 Comment on above: Order Comment: Speci men Type: BLOOD SPECIMENOrdering Facility: [facility] Address: [address] [place] [address] Performed By: #### 5 7021-8 ####[facility]ATORYCLIA [id number] [place] [id number] [place] Platelets (Bld) [#/Vol] 273 10*3/uL Normal 150-400 Comment on above: Order Comment: Speci men Type: BLOOD SPECIMENOrdering Facility: [facility] Address: [address] [place] [address] Performed By: #### 5 7021-8 ####[facility]ATORYCLIA [id number] [place] [address] [place] RBC (Bld) [#/Vol] 3.91 10*6/uL Normal 3.90-5.20 Comment on above: Order Comment: Speci men Type: BLOOD SPECIMENOrdering Facility: [facility] Address: [address] [place] [address] Performed By: #### 5 7021-8 ####[facility]ATORYCLIA [id number] [place] [id number] [place] WBC (Bld) [#/Vol] 16.92 10*3/uL High 3.70-11.00 [facility] Comment on above: Order Comment: Speci men Type: BLOOD SPECIMENOrdering Facility: [facility] Address: [address] [place] [address] Performed By: #### 5 7021-8 ####[facility]ATORYCLIA [id number] [address] [place] CONSULT PROGon 10-27-2024 CONSULT PROG Normal ECG COMPLETEon 10-27-2024 ECG COMPLETE Normal ECG COMPLETE Normal Magnesium SerPl-mCncon 10-27 Magnesium [Mass/Vol] 2.0 mg/dL Normal 1.6-2.6 [facility] Comment on above: Order Comment: Jack alberts Type: BLOOD SPECIMENOrdering Facility: [facility] Address: [address] [place] [address] Performed By: #### 2 4321-2, 64884-9, 2777-1 ####[facility]ATORYCLIA [id number] [address] PT panel Coag (PPP)on 2024 INR Coag (PPP) [Relative time] 1.3 {INR} Normal 0.9-1.3 Comment on above: Order Comment: Jack alberts Type: BLOOD SPECIMENOrdering Facility: [facility] Address: [address] [place] [address] Result Comment: Dennise min K Antagonist (VKA) Therapeutic Range: INR 2 to 3 (Target INR of 2.5)Note: For patients treated with VKA drugs, such as warfarin, the [place] [employer] 2012 Guideline recommends a therapeutic INR range of 2 to 3 (target INR of 2.5). This recommendation includes high-risk patients with antiphospholipid syndrome with previous arterial or venous thromboembolism, current-generation mechanical or bioprosthetic aortic heart valve replacement.Note: Patients with mechanical aortic valve replacement and additional risk factors for thromboembolic events (atrial fibrillation, previous thromboembolism, LV dysfunction, hypercoagulable conditions) or an older generation mechanical AVR (i.e., ball in-Cage) or any mechanical MVR should have a INR therapeutic range of 2.5 to 3.5 (target INR of 3).Tracy ADAM, et al. Chest 2012, 141:7S-47SEugenia CAMARA, et al. JACC 2017, 70: 252-289 Performed By: #### 1 4979-9, 86811-0 ####[facility]ATORYCLIA [id number] [place] [address] [place] PT Coag (PPP) [Time] 14.0 s High 9.7-13.0 [facility] Comment on above: Order Comment: Speci men Type: BLOOD SPECIMENOrdering Facility: [facility] Address: [address] [place] [address] Performed By: #### 1 4979-9, 52401-2 ####[facility]ATORYCLIA [id number] [place] [id number] [place] Phosphate SerPl-mCncon 10-27 Phosphate [Mass/Vol] 2.6 mg/dL Normal 2.5-4.9 [facility] Comment on above: Order Comment: Speci lexus Type: BLOOD SPECIMENOrdering Facility: [facility] Address: [address] [place] [address] Result Comment: Elev ated m-protein (paraprotein) levels in the serum may be exhibited in patients with monoclonal gammopathies, causing falsely elevated inorganic phosphorus results. Performed By: #### 2 4321-2, 69523-3, 2777-1 ####[facility]ORATORYCLIA [id number] [place] [address] [place] XR CHEST 1V PORT POST PICC - NBon 10-27-2024 XR CHEST 1V PORT POST PICC -NB Normal aPTT PPPon 10-27-2024 aPTT Coag (PPP) [Time] 67.4 s High 23.0-32.4 [facility] Comment on above: Order Comment: Speci men Type: BLOOD SPECIMENOrdering Facility: [facility] Address: [address] [place] [address] Performed By: #### 1 4979-9, 96166-4 ####[facility]ATORYCLIA [id number] [place] [id number] [place] CASE MANAGEMon 10-26-2024 CASE MANAGEM Normal CBC panel Auto (Bld)on 10-26 Erythrocyte distribution width (RBC) [Ratio] 14.1 % Normal 11.5-15.0 Comment on above: Order Comment: Speci men Type: BLOOD SPECIMENOrdering Facility: [facility] Address: [address] [place] [address] Performed By: #### 5 8410-2 ####[facility]ATORYCLIA [id number] [address] [place] Hematocrit (Bld) [Volume fraction] 36.2 % Normal 36.0-46.0 Comment on above: Order Comment: Speci men Type: BLOOD SPECIMENOrdering Facility: [facility] Address: [address] [place] [address] Performed By: #### 5 8410-2 ####[facility]ATORYCLIA [id number] [address] [place] Hemoglobin (Bld) [Mass/Vol] 12.0 g/dL Normal 11.5-15.5 Comment on above: Order Comment: Speci men Type: BLOOD SPECIMENOrdering Facility: [facility] Address: [address] [place] [address] Performed By: #### 5 8410-2 ####[facility]ATORYCLIA [id number] [place] [address] [place] MCH (RBC) [Entitic mass] 28.5 pg Normal 26.0-34.0 Comment on above: Order Comment: Speci men Type: BLOOD SPECIMENOrdering Facility: [facility] Address: [address] [place] [address] Performed By: #### 5 8410-2 ####[facility]ATORYCLIA [id number] [address] [place] MCHC (RBC) [Mass/Vol] 33.1 g/dL Normal 30.5-36.0 [facility] Comment on above: Order Comment: Speci men Type: BLOOD SPECIMENOrdering Facility: [facility] Address: [address] [place] [address] Performed By: #### 5 8410-2 ####[facility]ATORYCLIA [id number] [place] [id number] [place] MCV (RBC) [Entitic vol] 86.0 fL Normal 80.0-100.0 Comment on above: Order Comment: Speci men Type: BLOOD SPECIMENOrdering Facility: [facility] Address: [address] [place] [address] Performed By: #### 5 8410-2 ####[facility]ATORYCLIA [id number] [place] [address] [place] Nucleated RBC (Bld) [#/Vol] 10*3/uL Normal <0.01 Comment on above: Order Comment: Speci men Type: BLOOD SPECIMENOrdering Facility: [facility] Address: [address] [place] [address] Performed By: #### 5 8410-2 ####[facility]ATORYCLIA [id number] [address] [place] Platelet mean volume (Bld) [Entitic vol] 10.0 fL Normal 9.0-12.7 Comment on above: Order Comment: Speci men Type: BLOOD SPECIMENOrdering Facility: [facility] Address: [address] [place] [address] Performed By: #### 5 8410-2 ####[facility]ATORYCLIA [id number] [place] [address] [place] Platelets (Bld) [#/Vol] 248 10*3/uL Normal 150-400 Comment on above: Order Comment: Speci men Type: BLOOD SPECIMENOrdering Facility: [facility] Address: [address] [place] [address] Performed By: #### 5 8410-2 ####[facility]ATORYCLIA [id number] [place] [address] [place] RBC (Bld) [#/Vol] 4.21 10*6/uL Normal 3.90-5.20 Comment on above: Order Comment: Speci men Type: BLOOD SPECIMENOrdering Facility: [facility] Address: [address] [place] [id number] Performed By: #### 5 8410-2 ####[facility]ATORYCLIA [id number] [place] [address] [place] WBC (Bld) [#/Vol] 20.55 10*3/uL High 3.70-11.00 [facility] Comment on above: Order Comment: Speci men Type: BLOOD SPECIMENOrdering Facility: [facility] Address: [address] [place], [place] [address], [place] [address] Performed By: #### 5 8410-2 ####[facility]ATORYCLIA [id number] [address] [place] CONSULT PROGon 10-26-2024 CONSULT PROG Normal Comprehensive metabolic 2000 panelon 10-26-2024 Albumin [Mass/Vol] 3.0 g/dL Low 3.2-5.0 Comment on above: Order Comment: Speci men Type: BLOOD SPECIMENOrdering Facility: [facility] Address: [address] [place] [address] Performed By: #### 2 4323-8, 58223-5, 3015-3 ####[facility]ATORYCLIA [id number] [address] STATES OF [facility] ALP [Catalytic activity/Vol] 108 U/L Normal 45-117 Comment on above: Order Comment: Speci men Type: BLOOD SPECIMENOrdering Facility: [facility] Address: [address] [place], [place] [address] Performed By: #### 2 4323-8, 88084-3, 3015-3 ####[facility]ATORYCLIA [id number] [address] STATES OF [facility] ALT [Catalytic activity/Vol] 36 U/L Normal 13-61 Comment on above: Order Comment: Speci men Type: BLOOD SPECIMENOrdering Facility: [facility] Address: [address] [place] [address] Result Comment: Resu lts may be falsely depressed after the administration of Sulfasalazine and/or Sulfapyridine. Performed By: #### 2 4323-8, 33072-8, 3015-10 ####[facility]ATORYCLIA [id number] [place] [address] [place] Anion gap [Moles/Vol] 9 mmol/L Normal 5-16 [facility] Comment on above: Order Comment: Speci men Type: BLOOD SPECIMENOrdering Facility: [facility] Address: [address] [place] [address] Performed By: #### 2 4323-8, , 3015-10 ####[facility]ATORYCLIA [id number] [place] [id number] [place] AST [Catalytic activity/Vol] 25 U/L Normal 8-34 Comment on above: Order Comment: Sandiei men Type: BLOOD SPECIMENOrdering Facility: [facility] Address: [address] [place] [address] Result Comment: Resu lts may be falsely depressed after the administration of Sulfasalazine and/or Sulfapyridine. Performed By: #### 2 4323-8, , 3015-10 ####[facility]ATORYCLIA [id number] [place] [address] [place] Bilirubin [Mass/Vol] 0.6 mg/dL Normal 0.2-1.0 [facility] Comment on above: Order Comment: Speci men Type: BLOOD SPECIMENOrdering Facility: [facility] Address: [address] [place] [address] Performed By: #### 2 4323-8, , 3 ####[facility]ATORYCLIA [id number] [place] [address] [place] Calcium [Mass/Vol] 9.4 mg/dL Normal 8.5-10.5 Comment on above: Order Comment: Speci men Type: BLOOD SPECIMENOrdering Facility: [facility] Address: [address] [place], [place] [address] Performed By: #### 2 4323-8, 19169-8, 6-3 ####[facility]ATORYCLIA [id number] [place] [address] [place] Chloride [Moles/Vol] 105 mmol/L Normal 98-107 [facility] Comment on above: Order Comment: Speci men Type: BLOOD SPECIMENOrdering Facility: [facility] Address: [address] [place] [address] Performed By: #### 2 4323-8, , 3015-3 ####[facility]ATORYCLIA [id number] [place] [address] [place] CO2 [Moles/Vol] 24 mmol/L Normal 21-32 Comment on above: Order Comment: Speci men Type: BLOOD SPECIMENOrdering Facility: [facility] Address: [address] [place] [address] Performed By: #### 2 4323-8, , 3 ####[facility]ATORYCLIA [id number] [place] [address] [place] Creatinine [Mass/Vol] 0.64 mg/dL Normal 0.51-0.95 [facility] Comment on above: Order Comment: Speci men Type: BLOOD SPECIMENOrdering Facility: [facility] Address: [address] [place] [address] Result Comment: Jose ents receiving either N-Acetylcysteine (NAC) or Metamizole prior to venipuncture, may have falsely depressed results. Performed By: #### 2 4323-8, 79858-4, 3015-3 ####[facility]ATORYCLIA [id number] [place] [address] [place] Creatinine and Glomerular filtration rate.predicted panel (S/P/Bld) 95 mL/min/1.73m??? Normal >=60 Comment on above: Order Comment: Speci men Type: BLOOD SPECIMENOrdering Facility: [facility] Address: [address] [place] [id number] Result Comment: Alecia mated Glomerular Filtration Rate (eGFR) is calculated using the 2020 CKD-EPI creatinine equation. This equation utilizes serum creatinine, sex, and age as parameters. The creatinine assay has traceable calibration to isotope dilution-mass spectrometry. Refer to KDIGO guidelines for clinical interpretation. In patients with unstable renal function, e.g. those with acute kidney injury, the eGFR may not accurately reflect actual GFR. Performed By: #### 2 4323-8, 96703-4, 3015-3 ####[facility]ATORYCLIA [id number] [place] [address] [place] Glucose [Mass/Vol] 257 mg/dL High 70-100 Comment on above: Order Comment: Jack alberts Type: BLOOD SPECIMENOrdering Facility: [facility] Address: [address] [place] [address] Result Comment: The [place] [employer] (ADA) provides guidance for cutoff values for fasting glucose and random glucose. The ADA defines fasting as no caloric intake for at least 8 hours. Fasting plasma glucose results between 100 to 125 mg/dL indicate increased risk for diabetes (prediabetes).Fasting plasma glucose results greater than or equal to 126 mg/dL meet the criteria for diagnosis of diabetes. In the absence of unequivocal hyperglycemia, results should be confirmed by repeat testing. In a patient with classic symptoms of hyperglycemia or hyperglycemic crisis, random plasma glucose results greater than or equal to 200 mg/dL meet the criteria for diagnosis of diabetes.Reference: Standards of Medical Care in Diabetes 2016, [place] [employer]. Diabetes Care. 2016.39(Suppl 1).Results may be falsely elevated after the administration of Sulfapyridine.Results may be falsely depressed after the administration of Sulfasalazine. Performed By: #### 2 4323-8, 77348-6, 3 ####[facility]ATORYCLIA [id number] [place] [id number] [place] Potassium [Moles/Vol] 4.1 mmol/L Normal 3.5-5.1 [facility] Comment on above: Order Comment: Jack alberts Type: BLOOD SPECIMENOrdering Facility: [facility] Address: [address] [place] [address] Performed By: #### 2 4323-8, 99793-3, 3015-3 ####[facility]ATORYCLIA [id number] [place] [address] [place] Protein [Mass/Vol] 6.4 g/dL Normal 6.0-8.5 Comment on above: Order Comment: Speci men Type: BLOOD SPECIMENOrdering Facility: [facility] Address: [address] [place] [address] Performed By: #### 2 4323-8, , 3015-3 ####[facility]ATORYCLIA [id number] [place] [address] [place] Sodium [Moles/Vol] 138 mmol/L Normal 136-145 Comment on above: Order Comment: Speci men Type: BLOOD SPECIMENOrdering Facility: [facility] Address: [address] [place], [place] [address] [address] Performed By: #### 2 4323-8, , 3 ####[facility]ATORYCLIA [id number] [place] [id number] [place] Urea nitrogen [Mass/Vol] 16 mg/dL Normal 7-26 Comment on above: Order Comment: Speci men Type: BLOOD SPECIMENOrdering Facility: [facility] Address: [facility] [place] [address] Performed By: #### 2 4323-8, , 3 ####[facility]ATORYCLIA [id number] [place] [id number] [place] ECG COMPLETEon 10-26-2024 ECG COMPLETE Normal Magnesium SerPl-mCncon 10-26 Magnesium [Mass/Vol] 1.6 mg/dL Normal 1.6-2.6 [facility] Comment on above: Order Comment: Speci men Type: BLOOD SPECIMENOrdering Facility: [facility] Address: [facility] [place] [address] Performed By: #### 2 4323-8, , 3015-3 ####[facility]ATORYCLIA [id number] [place] [id number] [facility] TSH SerPl-aCncon 10-26-2024 TSH Qn 1.981 m[IU]/L Normal 0.358-3.740 Comment on above: Order Comment: Speci men Type: BLOOD SPECIMENOrdering Facility: [facility] Address: [address] [place] [address] Result Comment: 3rd generation ultra sensitive TSH. Performed By: #### 2 4323-8, 92626-3, 3 ####[facility]ATORYCLIA [id number] [address] [place] aPTT PPPon 10-26-2024 aPTT Coag (PPP) [Time] 62.5 s High 23.0-32.4 [facility] Comment on above: Order Comment: Speci men Type: BLOOD SPECIMENOrdering Facility: [facility] Address: [address] [place] [address] Performed By: #### 1 4979-9 ####[facility]ATORYCLIA [id number] [address] aPTT Coag (PPP) [Time] 66.4 s High 23.0-32.4 [facility] Comment on above: Order Comment: Speci men Type: BLOOD SPECIMENOrdering Facility: [facility] Address: [address] [place] [address] Performed By: #### 1 4979-9 ####[facility]ATORYCLIA [id number] [address] aPTT Coag (PPP) [Time] 51.3 s High 23.0-32.4 [facility] Comment on above: Order Comment: Speci men Type: BLOOD SPECIMENOrdering Facility: [facility] Address: [address] [place] [address] Performed By: #### 1 4979-9 ####[facility]ATORYCLIA [id number] [address] [place] CBC panel Auto (Bld)on 10-25 Erythrocyte distribution width (RBC) [Ratio] 14.2 % Normal 11.5-15.0 Comment on above: Order Comment: Speci men Type: BLOOD SPECIMENOrdering Facility: [facility] Address: [address] [place] [address] Performed By: #### 5 8410-2 ####[facility]ATORYCLIA [id number] [address] Hematocrit (Bld) [Volume fraction] 34.3 % Low 36.0-46.0 Comment on above: Order Comment: Speci men Type: BLOOD SPECIMENOrdering Facility: [facility] Address: [address] [place] [address] Performed By: #### 5 8410-2 ####[facility]ATORYCLIA [id number] [address] Hemoglobin (Bld) [Mass/Vol] 11.5 g/dL Normal 11.5-15.5 Comment on above: Order Comment: Speci men Type: BLOOD SPECIMENOrdering Facility: [facility] Address: [address] [place] [address] Performed By: #### 5 8410-2 ####[facility]ATORYCLIA [id number] [address] [place] MCH (RBC) [Entitic mass] 28.5 pg Normal 26.0-34.0 Comment on above: Order Comment: Speci men Type: BLOOD SPECIMENOrdering Facility: [facility] Address: [address] [place] [address] Performed By: #### 5 8410-2 ####[facility]ORATORYIA [id number] [address] [place] MCHC (RBC) [Mass/Vol] 33.5 g/dL Normal 30.5-36.0 [facility] Comment on above: Order Comment: Speci men Type: BLOOD SPECIMENOrdering Facility: [facility] Address: [address] [place] [address] Performed By: #### 5 8410-2 ####[facility]ATORYCLIA [id number] [place] [id number] [facility] MCV (RBC) [Entitic vol] 84.9 fL Normal 80.0-100.0 Comment on above: Order Comment: Speci men Type: BLOOD SPECIMENOrdering Facility: [facility] Address: [address] [place] [address] Performed By: #### 5 8410-2 ####[facility]ATORYCLIA [id number] [address] Nucleated RBC (Bld) [#/Vol] 10*3/uL Normal <0.01 Comment on above: Order Comment: Speci men Type: BLOOD SPECIMENOrdering Facility: [facility] Address: [address] [place] [address] Performed By: #### 5 8410-2 ####[facility]ATORYCLIA [id number] [address] [place] Platelet mean volume (Bld) [Entitic vol] 10.0 fL Normal 9.0-12.7 Comment on above: Order Comment: Speci men Type: BLOOD SPECIMENOrdering Facility: [facility] Address: [address] [place] [address] Performed By: #### 5 8410-2 ####[facility]ATORYCLIA [id number] [address] [place] Platelets (Bld) [#/Vol] 208 10*3/uL Normal 150-400 Comment on above: Order Comment: Speci men Type: BLOOD SPECIMENOrdering Facility: [facility] Address: [address] [place] [address] Performed By: #### 5 8410-2 ####[facility]ATORYCLIA [id number] [place] [address] [place] RBC (Bld) [#/Vol] 4.04 10*6/uL Normal 3.90-5.20 Comment on above: Order Comment: Speci men Type: BLOOD SPECIMENOrdering Facility: [facility] Address: [address] [place] [address] Performed By: #### 5 8410-2 ####[facility]ATORYCLIA [id number] [address] OF [facility] WBC (Bld) [#/Vol] 17.93 10*3/uL High 3.70-11.00 [facility] Comment on above: Order Comment: Speci men Type: BLOOD SPECIMENOrdering Facility: [facility] Address: [address] [place] [address] Performed By: #### 5 8410-2 ####[facility]ATORYCLIA [id number] [place] [id number] [facility] CONSULTon 10-25-2024 CONSULT Normal CONSULT PROGon 10-25-2024 CONSULT PROG Normal CONSULT PROG Normal Comprehensive metabolic 2000 panelon 10-25-2024 Albumin [Mass/Vol] 2.5 g/dL Low 3.2-5.0 Comment on above: Order Comment: Speci men Type: BLOOD SPECIMENOrdering Facility: [facility] Address: [address] [place] [address] Performed By: #### 2 4323-8, 77743-0 ####[facility]ATORYCLIA [id number] [place] [id number] [place] ALP [Catalytic activity/Vol] 64 U/L Normal 45-117 Comment on above: Order Comment: Speci men Type: BLOOD SPECIMENOrdering Facility: [facility] Address: [address] [place] [address] Performed By: #### 2 4323-8, 94910-1 ####[facility]ATORYCLIA [id number] [place] [address] [place] ALT [Catalytic activity/Vol] 16 U/L Normal 13-61 Comment on above: Order Comment: Speci men Type: BLOOD SPECIMENOrdering Facility: [facility] Address: [address] [place] [address] Result Comment: Resu lts may be falsely depressed after the administration of Sulfasalazine and/or Sulfapyridine. Performed By: #### 2 4323-8, 83555-9 ####[facility]ATORYCLIA [id number] [place] [address] [place] [facility] Anion gap [Moles/Vol] 6 mmol/L Normal 5-16 [facility] Comment on above: Order Comment: Speci men Type: BLOOD SPECIMENOrdering Facility: [facility] Address: [address] [place] [address] Performed By: #### 2 4323-8, 26416-1 ####[facility]ATORYCLIA [id number] [place] [id number] [place] [facility] AST [Catalytic activity/Vol] 18 U/L Normal 8-34 Comment on above: Order Comment: Speci men Type: BLOOD SPECIMENOrdering Facility: [facility] Address: [address] [place] [address] Result Comment: Resu lts may be falsely depressed after the administration of Sulfasalazine and/or Sulfapyridine. Performed By: #### 2 4323-8, 52289-9 ####[facility]ATORYCLIA [id number] [place] [id number] [place] Bilirubin [Mass/Vol] 0.4 mg/dL Normal 0.2-1.0 [facility] Comment on above: Order Comment: Speci men Type: BLOOD SPECIMENOrdering Facility: [facility] Address: [address] [place] [address] Performed By: #### 2 4323-8, 53641-3 ####[facility]ATORYCLIA [id number] [place] [address] [place] Calcium [Mass/Vol] 9.0 mg/dL Normal 8.5-10.5 Comment on above: Order Comment: Speci men Type: BLOOD SPECIMENOrdering Facility: [facility] Address: [address] [place] [address] Performed By: #### 2 4323-8, ####[facility]ATORYCLIA [id number] [place] [id number] [place] Chloride [Moles/Vol] 107 mmol/L Normal 98-107 [facility] Comment on above: Order Comment: Speci men Type: BLOOD SPECIMENOrdering Facility: [facility] Address: [address] [place] [address] Performed By: #### 2 4323-8, ####[facility]ATORYCLIA [id number] [place] [address] [place] CO2 [Moles/Vol] 25 mmol/L Normal 21-32 Comment on above: Order Comment: Speci men Type: BLOOD SPECIMENOrdering Facility: [facility] Address: [address] [place] [address] Performed By: #### 2 4323-8, ####[facility]ATORYCLIA [id number] [place] [address] [place] Creatinine [Mass/Vol] 0.82 mg/dL Normal 0.51-0.95 [facility] Comment on above: Order Comment: Speci men Type: BLOOD SPECIMENOrdering Facility: [facility] Address: [address] [place] [address] Result Comment: Jose ents receiving either N-Acetylcysteine (NAC) or Metamizole prior to venipuncture, may have falsely depressed results. Performed By: #### 2 4323-8, ####[facility]ATORYCLIA [id number] [place] [address] [place] Creatinine and Glomerular filtration rate.predicted panel (S/P/Bld) 77 mL/min/1.73m??? Normal >=60 Comment on above: Order Comment: Speci men Type: BLOOD SPECIMENOrdering Facility: [facility] Address: [address] [id number] Result Comment: Alecia mated Glomerular Filtration Rate (eGFR) is calculated using the 2020 CKD-EPI creatinine equation. This equation utilizes serum creatinine, sex, and age as parameters. The creatinine assay has traceable calibration to isotope dilution-mass spectrometry. Refer to KDIGO guidelines for clinical interpretation. In patients with unstable renal function, e.g. those with acute kidney injury, the eGFR may not accurately reflect actual GFR. Performed By: #### 2 4323-8, ####[facility]ATORYCLIA [id number] [place] [id number] [place] Glucose [Mass/Vol] 170 mg/dL High 70-100 Comment on above: Order Comment: Jack alberts Type: BLOOD SPECIMENOrdering Facility: [facility] Address: [address] [place] [address] Result Comment: The [place] [employer] (ADA) provides guidance for cutoff values for fasting glucose and random glucose. The ADA defines fasting as no caloric intake for at least 8 hours. Fasting plasma glucose results between 100 to 125 mg/dL indicate increased risk for diabetes (prediabetes).Fasting plasma glucose results greater than or equal to 126 mg/dL meet the criteria for diagnosis of diabetes. In the absence of unequivocal hyperglycemia, results should be confirmed by repeat testing. In a patient with classic symptoms of hyperglycemia or hyperglycemic crisis, random plasma glucose results greater than or equal to 200 mg/dL meet the criteria for diagnosis of diabetes.Reference: Standards of Medical Care in Diabetes 2016, [place] [employer]. Diabetes Care. 2016.39(Suppl 1).Results may be falsely elevated after the administration of Sulfapyridine.Results may be falsely depressed after the administration of Sulfasalazine. Performed By: #### 2 4323-8, ####[facility]ATORYCLIA [id number] [place] [id number] [place] Potassium [Moles/Vol] 3.9 mmol/L Normal 3.5-5.1 [facility] Comment on above: Order Comment: Jack alberts Type: BLOOD SPECIMENOrdering Facility: [facility] Address: [address] [id number] Performed By: #### 2 4323-8, ####[facility]ORATORYCLIA [id number] [place] [id number] [place] Protein [Mass/Vol] 5.8 g/dL Low 6.0-8.5 Comment on above: Order Comment: Speci men Type: BLOOD SPECIMENOrdering Facility: [facility] Address: [address] [place] [address] Performed By: #### 2 4323-8, ####[facility]ATORYCLIA [id number] [place] [id number] [place] Sodium [Moles/Vol] 138 mmol/L Normal 136-145 Comment on above: Order Comment: Speci men Type: BLOOD SPECIMENOrdering Facility: [facility] Address: [address] [place] [address] Performed By: #### 2 4323-8, ####[facility]ATORYCLIA [id number] [place] [id number] [place] Urea nitrogen [Mass/Vol] 23 mg/dL Normal 7-26 Comment on above: Order Comment: Speci men Type: BLOOD SPECIMENOrdering Facility: [facility] Address: [facility] [place] [address] Performed By: #### 2 4323-8, ####[facility]ATORYCLIA [id number] [place] [id number] [place] Culture, Blood (WB)on 2024 CUB Blood cultures x2, f rom two different sites ANAEROBIC/AEROBIC BOTTLES POSITIVE RESULTS CALLED/PRINTED TO [facility] 10/23/24 1407 Nicole Sahu. REPORT READ BACK BY SAME. AMENDED GRAM STAIN: GRAM NEGATIVE BACILLI. 10/24 0940 RESULTS CALLED TO SANTO Steven 10/24/24 1538 Debbi Kauffman. REPORT READ BACK BY . Culture, Blood (WB) Copy of report sent to Infection Control Printer MS#[id number] 10/25/24 1026 BLUCAS. Escherichia coli Amount Growth Growth Escherichia coli: REACTION Ampicillin Islt DAVID 8 Ampicillin+Sulbac Islt DAVID 4 S Cefepime Islt DAVID <=0.12 S cefTRIAXone Islt DAVID <=0.25 S Ciprofloxacin Islt DAVID <=0.06 S B-Lactamase Extended Susc Islt NEG Gentamicin Islt DAVID <=1 S levoFLOXacin Islt DAVID <=0.12 S Meropenem Islt DAVID <=0.25 S Pip+Tazo Islt DAVID <=4 S TMP SMX Islt DAVID <=20 S Normal [facility] Comment on above: Performed By: #### M 200.1000, L503.6005 #### [facility] [address] [place], [place], [address] ECG COMPLETEon 10-25-2024 ECG COMPLETE Normal Magnesium SerPl-mCncon 10-25 Magnesium [Mass/Vol] 1.7 mg/dL Normal 1.6-2.6 [facility] Comment on above: Order Comment: Jack alberts Type: BLOOD SPECIMENOrdering Facility: [facility] Address: [address] [place] [address] Performed By: #### 2 4323-8, 11268-2 ####[facility]ATORYCLIA [id number] [address] [place] PT panel Coag (PPP)on 2024 INR Coag (PPP) [Relative time] 1.2 {INR} Normal 0.9-1.3 Comment on above: Order Comment: Jack alberts Type: BLOOD SPECIMENOrdering Facility: [facility] Address: [address] [place] [address] Result Comment: Dennise min K Antagonist (VKA) Therapeutic Range: INR 2 to 3 (Target INR of 2.5)Note: For patients treated with VKA drugs, such as warfarin, the [place] [employer] 2012 Guideline recommends a therapeutic INR range of 2 to 3 (target INR of 2.5). This recommendation includes high-risk patients with antiphospholipid syndrome with previous arterial or venous thromboembolism, current-generation mechanical or bioprosthetic aortic heart valve replacement.Note: Patients with mechanical aortic valve replacement and additional risk factors for thromboembolic events (atrial fibrillation, previous thromboembolism, LV dysfunction, hypercoagulable conditions) or an older generation mechanical AVR (i.e., ball in-Cage) or any mechanical MVR should have a INR therapeutic range of 2.5 to 3.5 (target INR of 3).Tracy ADAM, et al. Chest 2012, 141:7S-47SNishprerna RA, et al. [facility] 2017, 70: 252-289 Performed By: #### 3 4528-0, 08230-7 ####[facility]ATORYCLIA [id number] [place] [id number] [place] PT Coag (PPP) [Time] 12.5 s Normal 9.7-13.0 [facility] Comment on above: Order Comment: Speci men Type: BLOOD SPECIMENOrdering Facility: [facility] Address: [address] [place] [address] [place] [address] Performed By: #### 3 4528-0, 70361-8 ####[facility]ATORYCLIA [id number] [place] [id number] [place] aPTT PPPon 10-25-2024 aPTT Coag (PPP) [Time] 33.1 s High 23.0-32.4 [facility] Comment on above: Order Comment: Speci men Type: BLOOD SPECIMENOrdering Facility: [facility] Address: [address] [place], [place] [address] [address] Performed By: #### 3 4528-0, 55639-2 ####[facility]ATORYCLIA [id number] [place] [id number] [place] CASE MGT [facility]IT [facility]on [facility]24 [facility]-24-2024 CONSULT PROG [facility] NURSING PROGon 10-24-2024 NURSING PROG [facility] Abdomen/Pelvis W IV Cont ONL Yon 10-23-2024 Abdomen/Pelvis W IV Cont ONLY [facility] Imaging Services [address] [place] [address] Abdomen/Pelvis W IV Cont ONLY MR#: [id number] Acct: [id number] Name: ALIYAH LEACH Rep #: [id number] : 1955 F 69 From: Lazara Howell MD PCP: Dr. Bobby Grady MD Status: REG ER Study: Abdomen/Pelvis W IV Cont ONLY Date of Exam: Exam# [id number] Ordering Dr: Kurtis Noyola MD PROCEDURE: ABDOMEN/PELVIS W IV CONT ONLY REASON FOR EXAM: Right-sided abdominal pain, nausea and vomiting. TECHNIQUE: Abdomen and pelvis CT with intravenous contrast. One or more dose reduction techniques were used (e.g., Automated exposure control, adjustment of the mA and/or kV according to patient size, use of iterative reconstruction technique). IV CONTRAST: 100 mL Isovue 370 COMPARISON: None. FINDINGS: Lung bases: Clear Liver: The liver is non cirrhotic. A nodule with discontinuous peripheral nodular enhancement in the right hepatic lobe measures 1.2 x 3 cm, consistent with a hemangioma Gallbladder: Status post cholecystectomy Spleen: Normal Pancreas: Normal Adrenals: Normal Kidneys: An obstructing 9 mm calculus is located in the right ureteropelvic junction with mild hydronephrosis and perinephric stranding. The distal right ureter is normal. The left kidney is atrophic compared to the right. A cluster of calcifications is noted in the lower pole calyx of the left kidney. Left ureter is normal. Bladder: Decompressed. Contains gas. Reproductive Organs: Status post hysterectomy Bowel: Moderate amount of stool in the colon. No obstruction or acute inflammatory abnormality. The rectosigmoid anastomosis is patent Appendix: Normal. Lymph nodes: No suspicious lymph node enlargement. Vasculature: Mild aortoiliac atherosclerosis Peritoneum / Retroperitoneum: No ascites. No free air. Bones: Degenerative changes in the lumbar spine CT/Abdomen/Pelvis W IV Cont ONLY IMPRESSION: OBSTRUCTING 9 MM CALCULUS IN THE RIGHT URETEROPELVIC JUNCTION WITH MILD HYDRONEPHROSIS. GAS IN THE URINARY BLADDER, WHICH CAN BE SEEN IN INFECTION. Reading Location: [id number] CC: Dr. Kurtis Noyola MD; Dr. Bobby Grady MD Endoscopy Nurse: Signed Normal [facility] Absolute lymphocyte countOrd ered By: Kurtis Noyola on 10-23-2024 Lymphocytes Auto (Unsp spec) [#/Vol] 0.73 10*3/uL Low 0.83-4.51 [facility] Absolute neutrophil countOrd ered By: Kurtis Gus on 10-23-2024 Neutrophils (Bld) [#/Vol] 20.5 10*3/uL High 2.0-7.7 [facility] Automated lymphocyte count a s percentage of total leukocytesOrdered By: Kurtis Noyola on 10-23-2024 Lymphocytes/100 WBC Auto (Unsp spec) 3.3 % Low 19-41 [facility] BRIEF OP NOTon 10-23-2024 BRIEF OP NOT Normal BUN/creatinine ratioOrdered By: Kurtis Noyola on 10-23-2024 Urea nitrogen/Creatinine [Mass ratio] 21.7 mg/mg High 10-20 [facility] Bacteria Bld Culton 10-24-19 25 Bacteria identified Cx Nom (Bld) CULTURE, BLOOD: No growth 5 days [facility] Comment on above: Performed By: #### 6 00-7 ####[facility]ATORYCLIA [id number] [place] [address] [place] Bacteria Ur Culton 5 Bacteria identified Cx Nom (U) Abnormal Comment on above: Performed By: #### 6 30-4 ####[facility]ATORYCLIA [id number] [place] [address] [place] Bacteria identified Cx Nom (U) ORGANISM ID: 1 >=100,000 CFU/ml Escherichia coli Please refer to [id number] (collected 10/23/2024 at 18:58) for susceptibilities. [facility] Comment on above: Performed By: #### 6 30-4 ####[facility]ATORYCLIA [id number] [place] [address] [place] Bacteria identified Cx Nom (U) CULTURE, URINE: <10,000 CFU/ml Normal [facility] Normal Comment on above: Performed By: #### 2 4356-8, 630-4 ####[facility]ATORYCLIA [id number] [place] [address] [place] Basic metabolic 2000 panelon 10-23-2024 Anion gap [Moles/Vol] 11 mmol/L Normal 5-16 [facility] Comment on above: Order Comment: Speci men Type: BLOOD SPECIMENOrdering Facility: [facility] Address: [address] [place] [address] Performed By: #### 2 4321-2 ####[facility]ATORYCLIA [id number] [place] [address] [place] Calcium [Mass/Vol] 8.8 mg/dL Normal 8.5-10.5 Comment on above: Order Comment: Speci men Type: BLOOD SPECIMENOrdering Facility: [facility] Address: [address] [place] [address] Performed By: #### 2 4321-2 ####[facility]ATORYCLIA [id number] [place] [address] [place] Chloride [Moles/Vol] 101 mmol/L Normal 98-107 [facility] Comment on above: Order Comment: Speci men Type: BLOOD SPECIMENOrdering Facility: [facility] Address: [address] [place] [address] Performed By: #### 2 4321-2 ####[facility]ATORYCLIA [id number] [place] [address] [place] CO2 [Moles/Vol] 20 mmol/L Low 21-32 Comment on above: Order Comment: Speci men Type: BLOOD SPECIMENOrdering Facility: [facility] Address: [address] [place] [address] Performed By: #### 2 4321-2 ####[facility]ATORYCLIA [id number] [place] [address] [place] Creatinine [Mass/Vol] 1.35 mg/dL High 0.51-0.95 [facility] Comment on above: Order Comment: Speci men Type: BLOOD SPECIMENOrdering Facility: [facility] Address: [address] [place] [id number] Result Comment: Jose ents receiving either N-Acetylcysteine (NAC) or Metamizole prior to venipuncture, may have falsely depressed results. Performed By: #### 2 4321-2 ####[facility]ATORYCLIA [id number] [place] [address] [place] Creatinine and Glomerular filtration rate.predicted panel (S/P/Bld) 42 mL/min/1.73m??? Low >=60 Comment on above: Order Comment: Specclaudio alberts Type: BLOOD SPECIMENOrdering Facility: [facility] Address: [address] [place] [address] Result Comment: Alecia mated Glomerular Filtration Rate (eGFR) is calculated using the 2020 CKD-EPI creatinine equation. This equation utilizes serum creatinine, sex, and age as parameters. The creatinine assay has traceable calibration to isotope dilution-mass spectrometry. Refer to KDIGO guidelines for clinical interpretation. In patients with unstable renal function, e.g. those with acute kidney injury, the eGFR may not accurately reflect actual GFR. Performed By: #### 2 4321-2 ####[facility]ATORYCLIA [id number] [place] [address] [place] Glucose [Mass/Vol] 214 mg/dL High 70-100 Comment on above: Order Comment: Jack alberts Type: BLOOD SPECIMENOrdering Facility: [facility] Address: [address] [place] [address] Result Comment: The [place] [employer] Association (ADA) provides guidance for cutoff values for fasting glucose and random glucose. The ADA defines fasting as no caloric intake for at least 8 hours. Fasting plasma glucose results between 100 to 125 mg/dL indicate increased risk for diabetes (prediabetes).Fasting plasma glucose results greater than or equal to 126 mg/dL meet the criteria for diagnosis of diabetes. In the absence of unequivocal hyperglycemia, results should be confirmed by repeat testing. In a patient with classic symptoms of hyperglycemia or hyperglycemic crisis, random plasma glucose results greater than or equal to 200 mg/dL meet the criteria for diagnosis of diabetes.Reference: Standards of Medical Care in Diabetes 2016, [place] [employer]. Diabetes Care. 2016.39(Suppl 1).Results may be falsely elevated after the administration of Sulfapyridine.Results may be falsely depressed after the administration of Sulfasalazine. Performed By: #### 2 4321-2 ####[facility]ATORYCLIA [id number] [place] [id number] [place] Potassium [Moles/Vol] 4.6 mmol/L Normal 3.5-5.1 [facility] Comment on above: Order Comment: Speci men Type: BLOOD SPECIMENOrdering Facility: [facility] Address: [address] [place] [address] Performed By: #### 2 4321-2 ####[facility]ATORYCLIA [id number] [place] [id number] [place] Sodium [Moles/Vol] 132 mmol/L Low 136-145 Comment on above: Order Comment: Speci men Type: BLOOD SPECIMENOrdering Facility: [facility] Address: [address] [place] [address] Performed By: #### 2 4321-2 ####[facility]ATORYCLIA [id number] [place] [address] [place] Urea nitrogen [Mass/Vol] 20 mg/dL Normal 7-26 Comment on above: Order Comment: Speci men Type: BLOOD SPECIMENOrdering Facility: [facility] Address: [address] [place] [address] Performed By: #### 2 4321-2 ####[facility]ATORYCLIA [id number] [place] [id number] [place] Basophil percentageOrdered B y: Kurtis Noyola on 10-23-2024 Basophils/100 WBC (Bld) 0.3 % 0-1 [facility] Bedside Glucoseon 10-23-2024 FINGERSTICK GLU 225 mg/dL High 74-106 [facility] Comment on above: Result Comment: TYRELL WALLS OF PATIENT CARE PER NURSING PROTOCOL Performed By: #### L 501.080 #### [facility] [address] [place], [place], [id number] Bilirubin, totalOrdered By: Kurtis Noyola on 10-23-2024 Bilirubin [Mass/Vol] 0.52 mg/dL 0.00-1.30 [facility] Blood cultureOrdered By: Mariposa Noyola on 10-23-2024 Bacteria identified Cx Nom (Bld) GNR lactose ob gyn physician assistant Abnormal [facility] Bacteria identified Cx Nom (Bld) Escherichia coli Abnormal [facility] Blood manual differential co mment interpretation (narrative result)Ordered By: Kurtis Noyola on 10-23-2024 Manual differential comment Denys (Bld) [Interp] SCANNED [facility] Comment on above: NEUTROPHILLIA PRESEN T CBC W/Diff, Automatedon SMEAR COMMENT SCANNED Normal [facility] Comment on above: Result Comment: NEUT ROPHILLIA PRESENT Performed By: #### L 500.4050, L100.0100, L501.2450 #### [facility] [address] [place], [place], [address] TOXIC GRAN 1+ Normal [facility] Comment on above: Performed By: #### L 500.4050, L100.0100, L501.2450 #### [facility] [address] [place], [place], [id number] CBC panel Auto (Bld)on 10-23 Erythrocyte distribution width (RBC) [Ratio] 13.6 % Normal 11.5-15.0 Comment on above: Order Comment: Speci men Type: BLOOD SPECIMENOrdering Facility: [facility] Address: [address] [place] [address] Performed By: #### 5 8410-2 ####[facility]ORATORYCLIA [id number] [place] [address] [place] Hematocrit (Bld) [Volume fraction] 40.8 % Normal 36.0-46.0 Comment on above: Order Comment: Speci men Type: BLOOD SPECIMENOrdering Facility: [facility] Address: [address] [place] [address] Performed By: #### 5 8410-2 ####[facility]ATORYCLIA [id number] [address] [place] Hemoglobin (Bld) [Mass/Vol] 13.6 g/dL Normal 11.5-15.5 Comment on above: Order Comment: Speci men Type: BLOOD SPECIMENOrdering Facility: [facility] Address: [address] [place] [address] Performed By: #### 5 8410-2 ####[facility]ATORYCLIA [id number] [address] [place] MCH (RBC) [Entitic mass] 28.8 pg Normal 26.0-34.0 Comment on above: Order Comment: Speci men Type: BLOOD SPECIMENOrdering Facility: [facility] Address: [address] [place] [address] Performed By: #### 5 8410-2 ####[facility]ATORYCLIA [id number] [address] [place] MCHC (RBC) [Mass/Vol] 33.3 g/dL Normal 30.5-36.0 [facility] Comment on above: Order Comment: Speci men Type: BLOOD SPECIMENOrdering Facility: [facility] Address: [address] [place] [address] Performed By: #### 5 8410-2 ####[facility]ATORYCLIA [id number] [address] [place] MCV (RBC) [Entitic vol] 86.3 fL Normal 80.0-100.0 Comment on above: Order Comment: Speci men Type: BLOOD SPECIMENOrdering Facility: [facility] Address: [address] [place] [address] Performed By: #### 5 8410-2 ####[facility]ATORYCLIA [id number] [address] [place] Nucleated RBC (Bld) [#/Vol] 10*3/uL Normal <0.01 Comment on above: Order Comment: Speci men Type: BLOOD SPECIMENOrdering Facility: [facility] Address: [address] [place] [address] Performed By: #### 5 8410-2 ####[facility]ATORYCLIA [id number] [place] [id number] [place] Platelet mean volume (Bld) [Entitic vol] 9.5 fL Normal 9.0-12.7 Comment on above: Order Comment: Speci men Type: BLOOD SPECIMENOrdering Facility: [facility] Address: [address] [place] [address] Performed By: #### 5 8410-2 ####[facility]ATORYCLIA [id number] [place] [address] [place] Platelets (Bld) [#/Vol] 282 10*3/uL Normal 150-400 Comment on above: Order Comment: Speci men Type: BLOOD SPECIMENOrdering Facility: [facility] Address: [address] [place] [address] Performed By: #### 5 8410-2 ####[facility]ATORYCLIA [id number] [place] [address] [place] RBC (Bld) [#/Vol] 4.73 10*6/uL Normal 3.90-5.20 Comment on above: Order Comment: Speci men Type: BLOOD SPECIMENOrdering Facility: [facility] Address: [address] [place] [address] Performed By: #### 5 8410-2 ####[facility]ATORYCLIA [id number] [place] [id number] [place] WBC (Bld) [#/Vol] 19.10 10*3/uL High 3.70-11.00 [facility] Comment on above: Order Comment: Speci men Type: BLOOD SPECIMENOrdering Facility: [facility] Address: [address] [place] [address] Performed By: #### 5 8410-2 ####[facility]ATORYCLIA [id number] [place] [address] [place] CONSULTon 10-23-2024 CONSULT Normal CONSULT PROGon 10-23-2024 CONSULT PROG [facility] Carbon dioxide measurementOr dered By: Kurtis Noyola on 10-23-2024 CO2 [Moles/Vol] 20.5 mmol/L Low 22.0-29.0 [facility] Chloride measurementOrdered By: Kurtis Noyola on 10-23-2024 Chloride [Moles/Vol] 97 mmol/L 96-108 [facility] Comprehensive Metabolic Prof ilon 10-23-2024 Albumin [Mass/Vol] 3.9 g/dL Normal 3.4-4.8 [facility] Comment on above: Performed By: #### L 500.4050, L100.0100, L501.2450 #### [facility] [address] [place], [address] Albumin/Globulin [Mass ratio] 1.3 {ratio} Normal 0.9-2.4 [facility] Comment on above: Performed By: #### L 500.4050, L100.0100, L501.2450 #### [facility] [address] [place], [address] ALK PHOS 58 U/L Normal 35-104 [facility] Comment on above: Performed By: #### L 500.4050, L100.0100, L501.2450 #### [facility] [address] [place], [address] ALT [Catalytic activity/Vol] 19 U/L Normal <=34 [facility] Comment on above: Performed By: #### L 500.4050, L100.0100, L501.2450 #### [facility] [address] [place], [address] Anion gap [Moles/Vol] 16 mmol/L High 5-15 [facility] Comment on above: Performed By: #### L 500.4050, L100.0100, L501.2450 #### [facility] [address] [place], [address] AST [Catalytic activity/Vol] 20 U/L Normal <=31 [facility] Comment on above: Performed By: #### L 500.4050, L100.0100, L501.2450 #### [facility] [address] [place], [address] Bilirubin [Mass/Vol] 0.52 mg/dL Normal 0.00-1.30 [facility] Comment on above: Performed By: #### L 500.4050, L100.0100, L501.2450 #### [facility] [address] [place], [address] BUN/CRE 21.7 RATIO High 10-20 [facility] Comment on above: Performed By: #### L 500.4050, L100.0100, L501.2450 #### [facility] [address] [place], [address] Calcium [Mass/Vol] 9.3 mg/dL Normal 7.6-11.0 [facility] Comment on above: Performed By: #### L 500.4050, L100.0100, L501.2450 #### [facility] [address] [place], [address] Chloride [Moles/Vol] 97 mmol/L Normal 96-108 [facility] Comment on above: Performed By: #### L 500.4050, L100.0100, L501.2450 #### [facility] [address] [place], [address] CO2 [Moles/Vol] 20.5 mmol/L Low 22.0-29.0 [facility] Comment on above: Performed By: #### L 500.4050, L100.0100, L501.2450 #### [facility] [address] [place], [address] Creatinine [Mass/Vol] 1.13 mg/dL Normal 0.70-1.20 [facility] Comment on above: Performed By: #### L 500.4050, L100.0100, L501.2450 #### [facility] [address] [place], [address] ECRCL 55.38 ml/min Normal 50-250 [facility] Comment on above: Performed By: #### L 500.4050, L100.0100, L501.2450 #### [facility] [address] [place], [address] GFR/1.73 sq M.predicted among non-blacks MDRD (S/P/Bld) [Vol rate/Area] 52 mL/min/{1.73_m2} Low >60 [facility] Comment on above: Result Comment: mL/m in/1.73m2 CKD-EPI Creatinine Equation (2020) Performed By: #### L 500.4050, L100.0100, L501.2450 #### [facility] [address] [place], [address] Globulin (S) [Mass/Vol] 3.0 g/dL Normal 2.2-4.2 [facility] Comment on above: Performed By: #### L 500.4050, L100.0100, L501.2450 #### [facility] [address] [place], [address] Glucose [Mass/Vol] 239 mg/dL High 70-99 [facility] Comment on above: Performed By: #### L 500.4050, L100.0100, L501.2450 #### [facility] [address] [place], [address] Potassium [Moles/Vol] 4.2 mmol/L Normal 3.3-5.1 [facility] Comment on above: Performed By: #### L 500.4050, L100.0100, L501.2450 #### [facility] [address] [place], [address] Sodium [Moles/Vol] 133 mmol/L Normal 133-145 [facility] Comment on above: Performed By: #### L 500.4050, L100.0100, L501.2450 #### [facility] [address] [place], [address] T PROT 6.9 g/dL Normal 5.9-8.4 [facility] Comment on above: Performed By: #### L 500.4050, L100.0100, L501.2450 #### [facility] [address] [place], [address] Urea nitrogen [Mass/Vol] 25 mg/dL High 4-19 [facility] Comment on above: Performed By: #### L 500.4050, L100.0100, L501.2450 #### [facility] [address] [place], [address] Emergency Department Summary on 10-23-2024 Emergency Department Summary [facility] Medical Records Department [address] [place] [address] Emergency Department Summary 10/23/24 MR#: [id number] Acct: [id number] Name: ALIYAH LEACH Rep #: [id number] : 1955 69 From: Kurtis Noyola MD PCP: Dr. Bobby Grady MD Status:REG ER Location: ED HPI HPI - GI History of Present Illness Chief Complaint: Abd Pain Informant: patient Narrative Narrative: 69-year-old female states she started having abdominal pain on the right side 7 or 8 hours ago, it came on gradually, has progressed throughout the evening, and subsequently she started vomiting and every time she takes a sip of something she vomits. No blood or bilious emesis. She had a small bowel movement earlier, small amount of liquid, which is typical for her since her partial colectomy. She has had multiple abdominal surgeries in the past. Never had a bowel obstruction that she knows of. [facility] Medical History H/O cancer of uterus h/o cervical h/o colon cancer Depression hypercholesterolemia Diabetes HTN (hypertension) Home Medications ???Medication ???Instructions ???Recorded ???Last Taken ???Type lisinopril 10 mg tablet 10 mg PO DAILY HEART 12/21/1402/12 History multivitamin,lo-dggn-rytv rals 27 1 tab PO DAILY SUPPLEMENT 12/21/14 4 Days Ago History mg-0.4 mg tablet 07/25/22 cyanocobalamin (vitamin B-12) 2,500 mcg PO DAILY SUPPLEMENT 05/2607/29/22 History 2,500 mcg tablet cholecalciferol (vitamin D3) 25 25 mcg PO DAILY SUPPLEMENT 2 07/29/22 History mcg (1,000 unit) tablet fluoxetine 40 mg capsule 40 mg PO DAILY DEPRESSION 07/29/22 07/29/22 History glimepiride 4 mg tablet 4 mg PO DINNER DM 07/29/22 2 History levothyroxine 112 mcg tablet 112 mcg PO DAILY THYROID 07/29/22 07/29/22 History metformin 1,000 mg tablet 1,000 mg PO BID DM 07/29/22 History pravastatin 40 mg tablet 40 mg PO QHS CHOLESTEROL 07/29/22 07/28/22 History dulaglutide 0.75 mg/0.5 mL 0.75 mg subcut QWEEK DIABETES 03/1407/27/22 08:00 History subcutaneous pen injector (Trulicity) oxycodone 5 mg tablet 5 mg PO Q4H PRN PRN Pain Score 05/15 Unknown Rx 6-10 3 days #10 tabs melatonin 3 mg tablet,extended 3 mg PO QHS 10/23/24 Unknown Histo ry release (Meladox) Allergy/AdvReac Type Severity Reaction Status Date / Time Penicillins (PCN) Allergy Swelling Verified 10/23/24 01:09 tolterodine tartrate (From Allergy Swelling Verified 10/23/24 01:09 [facility]) Family History Father Colon cancer Mother Diabetes CVA (cerebral vascular accident) Surgical History S/P colonoscopy ( 06/23/18) H/O colonoscopy S/P appendectomy History of laparoscopic cholecystectomy History of bilateral knee replacement S/P hysterectomy S/P colectomy Social History household members: spouse and family Smoking Status: Never smoker alcohol intake: never substance use type: does not use ROS ROS ED Constitutional Constitutional ED: Denies chills or fever(s) Eyes Eyes: Denies change in vision or diplopia ENT ENT ED: Denies rhinorrhea or sore throat Cardiovascular Cardiovascular: Denies chest pain or palpitations Respiratory/Chest Respiratory/Chest: Denies cough or dyspnea Gastrointestinal Gastrointestinal: Reports abdominal pain, nausea and vomiting; Denies diarrhea Genitourinary Genitourinary ED: Denies dysuria or hematuria Musculoskeletal Musculoskeletal: Denies back pain or neck pain Integumentary Denies abscess or rash Neurologic Neurologic: Denies headache(s), paresthesias or weakness Psychiatric Psychiatric: Denies anxiety or suicidal thoughts EXAM Physical Exam Const Vital Signs: 10/23/24 01:09 10/23/24 03:08 10/23/24 03:59 Temperature 98.3 F 101 F H Temperature Source Oral Oral Pulse Rate 922 H 92 105 H Respiratory Rate 20 H 18 20 H Blood Pressure 217/87 H 193/67 H 193/67 H Blood Pressure Mean 130 109 109 Pulse Ox 96 92 93 Oxygen Delivery Method Room Air Room Air Room Air 10/23/24 04:59 Temperature 98.6 F Temperature Source Oral Pulse Rate 112 H Respiratory Rate 20 H Blood Pressure 129/59 H Blood Pressure Mean 82 Pulse Ox 92 Oxygen Delivery Method Positive well nourished and well developed General Appearance ED: well developed and NAD HEENT Reports moist mucous membranes normocephalic and atraumatic Eyes PERRL and EOMs intact bilaterally Neck full ROM and supple Resp normal respiratory effort and clear to auscultation bilaterally Cardio regular rate, regular (more content not included)... Normal [facility] Eosinophil percentageOrdered By: Kurtis Noyola on 10-23-2024 Eosinophils/100 WBC (Bld) 0.0 % 0-5 [facility] Erythrocyte distribution wid th ratioOrdered By: Kurtis Noyola on 10-23-2024 Erythrocyte distribution width (RBC) [Ratio] 13.2 % 11.6-14.6 [facility] Erythrocyte distribution wid th standard deviationOrdered By: Kurtis Noyola on 10-23-2024 Erythrocyte distribution width (RBC) [Ratio] 41.3 fl 35.1-43.9 [facility] Glomerular filtration rate ( GFR) estimation/1.73 sq m using serum, plasma, or whole bOrdered By: Kurtis Noyola on 10-23-2024 GFR/1.73 sq M.predicted among non-blacks MDRD (S/P/Bld) [Vol rate/Area] 52 mL/min/{1.73_m2} Low >60 [facility] Comment on above: mL/min/1.73m2 CKD-EP I Creatinine Equation (2020) [facility] deOrdered By: Kurtis Noyola on 10-23-2024 Glucose [Mass/Vol] 225 mg/dL High 74-106 [facility] Comment on above: MANAGEMENT OF PATIEN T CARE PER NURSING PROTOCOL HISTORY PHYSICALon HISTORY PHYSICAL Normal Hematocrit Auto (Bld) [Volum e fraction]Ordered By: Kurtis Noyola on 10-23-2024 Hematocrit (Bld) [Volume fraction] 43.0 % 37-47 [facility] Hemoglobin measurementOrdere d By: Kurtis Noyola on 10-23-2024 Hemoglobin (Bld) [Mass/Vol] 14.3 g/dL 12.0-15.0 [facility] IR FLOURO GUID NEEDLE PLCon 10-23-2024 IR FLOURO GUID NEEDLE PLC [facility] IR NEPHROSTOMY TUBE PLACEon 10-23-[address] [facility] IR US GUIDE NEEDLE PLACE/BIO PSYon 10-23-[address] GU[address] NEEDLE PL[address]/BIOPSY [facility] Immature granulocytes/100 WB C Auto (Bld)Ordered By: Kurtis Noyola on 10-23-2024 Immature granulocytes/100 WBC (Bld) 0.700 % 0.0-0.9 [facility] Comment on above: IG% - Immature Granu locytes (promyelocytes, myelocytes and metamyelocytes) > 1% indicates that a LEFT SHIFT is Present. Laboratory - Chemistry and C hemistry - challengeOrdered By: Kurtis Noyola on 10-23-2024 AST [Catalytic activity/Vol] 20 U/L <32 [facility] Lactate (Bld) [Moles/Vol]on 10-23-2024 Lactate [Moles/Vol] 5.1 mmol/L High 0.4-2.0 Comment on above: Order Comment: Speci men Type: BLOOD SPECIMENOrdering Facility: [facility] Address: [facility] [place] [address] Result Comment: CRIT ICAL Performed By: #### 3 2693-4 ####[facility]ORY[facility] [id number] [address] OF [facility] Lactic Acidon 10-23-2024 Lactate [Moles/Vol] 3.5 mmol/L Invalid Interpretation Code 0.0-2.0 [facility] Comment on above: Order Comment: Y Result Comment: Crit ical Result(s) Called at:0529 by:Malinda Bowman??Results read back by same. Performed By: #### M 200.1000, L503.6005 #### [facility] [address] [place], [address] Lactic acid measurementOrder ed By: Kurtis Noyola on 10-23-2024 Lactate [Moles/Vol] 3.5 mmol/L High 0.0-2.0 [facility] Comment on above: Critical Result(s) C alled at:0529 by:Malinda Bowman Results read back by same. Lipaseon 10-23-2024 Lipase [Catalytic activity/Vol] 43 U/L Normal 13-75 [facility] Comment on above: Result Comment: Arturo roy note: LIPASE revised reference range effective 22. New Lipase methodology. Expected to produce lower values than the previous assay method. NEW Reference Range: 13 - 75 U/L Performed By: #### L 500.4050, L100.0100, L501.2450 ####[facility] [address] [place], [address] Lipase measurementOrdered By : Kurtis Noyola on 10-23-2024 Lipase [Catalytic activity/Vol] 43 U/L 13-75 [facility] Comment on above: Please note:LIPASE r evised reference range effective 22. New Lipase methodology. Expected to produce lower values than the previous assay method. NEW Reference Range: 13 - 75 U/L MCV (mean corpuscular volume ) determinationOrdered By: Kurtis Noyola on 10-23-2024 MCV (RBC) [Entitic vol] 85.8 fL 81-99 [facility] Mean corpuscular hemoglobin (MCH) determinationOrdered By: Kurtis Noyola on 10-23-2024 MCH (RBC) [Entitic mass] 28.5 pg 27.0-32.0 [facility] Mean corpuscular hemoglobin concentration (MCHC) determinationOrdered By: Kurtis Noyola on 10-23-2024 MCHC (RBC) [Mass/Vol] 33.3 g/dL 32-36 [facility] Mean platelet volume determi nationOrdered By: Kurtis Noyola on 10-23-2024 Platelet mean volume (Bld) [Entitic vol] 9.3 fL 6.2-12.0 [facility] Monocyte percentageOrdered B y: Kurtis Noyola on 10-23-2024 Monocytes/100 WBC (Bld) 2.9 % 0-10 [facility] NURSING PROGon 10-23-2024 NURSING PROG [facility] NURSING PROG [facility] NURSING PROG Normal Neutrophil percentageOrdered By: Kurtis Noyola on 10-23-2024 Neutrophils/100 WBC (Bld) 92.8 % High 47-70 [facility] Nucleated red blood cell per centageOrdered By: Kurtis Noyola on 10-23-2024 Nucleated RBC/100 WBC (Bld) [Ratio] 0 % 0-5 [facility] PT panel Coag (PPP)on 2024 INR Coag (PPP) [Relative time] 1.3 {INR} Normal 0.9-1.3 Comment on above: Order Comment: Jack alberts Type: BLOOD SPECIMENOrdering Facility: [facility] Address: [address] [place] [address] Result Comment: Dennise min K Antagonist (VKA) Therapeutic Range: INR 2 to 3 (Target INR of 2.5)Note: For patients treated with VKA drugs, such as warfarin, the [place] [employer] 2012 Guideline recommends a therapeutic INR range of 2 to 3 (target INR of 2.5). This recommendation includes high-risk patients with antiphospholipid syndrome with previous arterial or venous thromboembolism, current-generation mechanical or bioprosthetic aortic heart valve replacement.Note: Patients with mechanical aortic valve replacement and additional risk factors for thromboembolic events (atrial fibrillation, previous thromboembolism, LV dysfunction, hypercoagulable conditions) or an older generation mechanical AVR (i.e., ball in-Cage) or any mechanical MVR should have a INR therapeutic range of 2.5 to 3.5 (target INR of 3).Tracy GH, et al. Chest 2012, 141:7S-47SNishprerna RA, et al. [facility] 2017, 70: 252-289 Performed By: #### 3 4528-0 ####[facility]ATORYCLIA [id number] [place] [address] [place] PT Coag (PPP) [Time] 13.9 s High 9.7-13.0 [facility] Comment on above: Order Comment: Jack alberts Type: BLOOD SPECIMENOrdering Facility: [facility] Address: [address] [place] [address] Performed By: #### 3 4528-0 ####[facility]ATORYCLIA [id number] [place] [address] [place] Platelet countOrdered By: Mikki Noyola on 10-23-2024 Platelets (Bld) [#/Vol] 329 10*3/uL 150-450 [facility] RBC Auto (Bld) [#/Vol]Ordere d By: Kurtis Noyola on 10-23-2024 RBC (Bld) [#/Vol] 5.01 10*6/uL 4.2-5.4 [facility] Serum creatinine measurement (mass/volume)Ordered By: Kurtis Noyola on 10-23-2024 Creatinine [Mass/Vol] 1.13 mg/dL 0.70-1.20 [facility] Serum globulin measurementOr dered By: Kurtis Noyola on 10-23-2024 Globulin (S) [Mass/Vol] 3.0 g/dL 2.2-4.2 [facility] Serum glucose measurement (m ass/volume)Ordered By: Kurtis Noyola on 10-23-2024 Glucose [Mass/Vol] 239 mg/dL High 70-99 [facility] Serum or plasma alanine mayorga otransferase (ALT) measurementOrdered By: Kurtis Noyola on 10-23-2024 ALT [Catalytic activity/Vol] 19 U/L <35 [facility] Serum or plasma albumin alma urement (mass/volume)Ordered By: Kurtis Noyola on 10-23-2024 Albumin [Mass/Vol] 3.9 g/dL 3.4-4.8 [facility] Serum or plasma albumin/glob ulin mass ratioOrdered By: Kurtis Noyola on 10-23-2024 Albumin/Globulin [Mass ratio] 1.3 {ratio} 0.9-2.4 [facility] Serum or plasma alkaline tomasa sphatase measurementOrdered By: Kurtis Noyola on 10-23-2024 ALP [Catalytic activity/Vol] 58 U/L 35-104 [facility] Serum or plasma anion gap de termination (moles/volume)Ordered By: Kurtis Noyola on 10-23-2024 Anion gap [Moles/Vol] 16 mmol/L High 5-15 [facility] Serum or plasma calcium alma urement (mass/volume)Ordered By: Kurtis Noyola on 10-23-2024 Calcium [Mass/Vol] 9.3 mg/dL 7.6-11.0 [facility] Serum or plasma potassium me asurementOrdered By: Kurtis Noyola on 10-23-2024 Potassium [Moles/Vol] 4.2 mmol/L 3.3-5.1 [facility] Serum or plasma sodium measu rement (moles/volume)Ordered By: Kurtis Noyola on 10-23-2024 Sodium [Moles/Vol] 133 mmol/L 133-145 [facility] Serum or plasma urea nitroge n measurement (mass/volume)Ordered By: Kurtis Noyola on 10-23-2024 Urea nitrogen [Mass/Vol] 25 mg/dL High 4-19 [facility] Total proteinOrdered By: Mariposa Noyola on 10-23-2024 Protein [Mass/Vol] 6.9 g/dL 5.9-8.4 [facility] Toxic leukocyte granulation detectionOrdered By: Kurtis Noyola on 10-23-2024 Toxic granules LM Ql (Bld) 1+ [facility] Urinalysis complete panel (U )on 10-23-2024 Bacteria LM.HPF (Urine sed) [#/Area] Rare Abnormal None Seen Comment on above: Order Comment: Speci men Type: URINE SPECIMENOrdering Facility: [facility] Address: [address] [place] [address] Performed By: #### 2 4356-8, 630-4 ####[facility]ATORYCLIA [id number] [place] [address] [place] Bilirubin Ql (U) Negative Normal Negative Comment on above: Order Comment: Speci men Type: URINE SPECIMENOrdering Facility: [facility] Address: [address] [place] [address] Performed By: #### 2 4356-8, 630-4 ####[facility]ATORYCLIA [id number] [place] [address] [place] Clarity (Unsp spec) Clear Normal Clear Comment on above: Order Comment: Speci men Type: URINE SPECIMENOrdering Facility: [facility] Address: [address] [place] [address] Performed By: #### 2 4356-8, 630-4 ####[facility]ATORYCLIA [id number] [place] [address] [place] Color (U) Yellow Normal Yellow Comment on above: Order Comment: Speci men Type: URINE SPECIMENOrdering Facility: [facility] Address: [address] [place] [address] Performed By: #### 2 4356-8, 630-4 ####[facility]ATORYCLIA [id number] [address] Epithelial cells LM.HPF (Urine sed) [#/Area] None Seen Normal Comment on above: Order Comment: Speci men Type: URINE SPECIMENOrdering Facility: [facility] Address: [address] [place] [address] Performed By: #### 2 4356-8, 630-4 ####[facility]ATORYCLIA [id number] [address] Glucose Test strip (U) [Mass/Vol] Negative Normal Negative Comment on above: Order Comment: Speci men Type: URINE SPECIMENOrdering Facility: [facility] Address: [address] [place] [address] Performed By: #### 2 4356-8, 630-4 ####[facility]ATORYCLIA [id number] [place] [address] [place] Hemoglobin Ql (U) 3+ Abnormal Negative Comment on above: Order Comment: Speci men Type: URINE SPECIMENOrdering Facility: [facility] Address: [address] [place] [address] Performed By: #### 2 4356-8, 630-4 ####[facility]ATORYCLIA [id number] [place] [address] [place] Ketones Ql (U) Negative Normal Negative Comment on above: Order Comment: Speci men Type: URINE SPECIMENOrdering Facility: [facility] Address: [address] [place] [address] Performed By: #### 2 4356-8, 630-4 ####[facility]ATORYCLIA [id number] [place] [address] [place] Leukocyte esterase Test strip Ql (U) Trace Abnormal Negative Comment on above: Order Comment: Speci men Type: URINE SPECIMENOrdering Facility: [facility] Address: [address] [place] [address] Performed By: #### 2 4356-8, 630-4 ####[facility]ORATORYCLIA [id number] [place] [id number] [place] Nitrite Ql (U) Negative Normal Negative Comment on above: Order Comment: Speci men Type: URINE SPECIMENOrdering Facility: [facility] Address: [address] [place] [address] Performed By: #### 2 4356-8, 630-4 ####[facility]ORATORYCLIA [id number] [place] [id number] [place] pH (U) 5.0 [pH] Normal 5.0-8.0 Comment on above: Order Comment: Speci men Type: URINE SPECIMENOrdering Facility: [facility] Address: [address] [place] [address] Performed By: #### 2 4356-8, 4 ####[facility]ATORYCLIA [id number] [place] [address] [place] Protein (U) [Mass/Vol] 1+ Abnormal Negative [facility] Comment on above: Order Comment: Speci men Type: URINE SPECIMENOrdering Facility: [facility] Address: [address] [place] [address] Performed By: #### 2 4356-8, 630 ####[facility]ATORYCLIA [id number] [place] [address] [place] RBC LM.HPF (Urine sed) [#/Area] /[HPF] Abnormal 0-3 /HPF Comment on above: Order Comment: Speci men Type: URINE SPECIMENOrdering Facility: [facility] Address: [address] [place] [address] Performed By: #### 2 4356-8, 630- ####[facility]ATORYCLIA [id number] [place] [id number] [place] Specific gravity (U) [Rel density] >1.030 High 1.005-1.030 Comment on above: Order Comment: Speci men Type: URINE SPECIMENOrdering Facility: [facility] Address: [address] [facility] [address] Performed By: #### 2 4356-8, 630-4 ####[facility]ATORYCLIA [id number] [place] [id number] [place] [facility] Urobilinogen Ql (U) Negative Normal Negative Comment on above: Order Comment: Speci men Type: URINE SPECIMENOrdering Facility: [facility] Address: [address] [place] [address] Performed By: #### 2 4356-8, 630-4 ####[facility]ATORYCLIA [id number] [address] [place] WBC LM.HPF (Urine sed) [#/Area] 11-25 /HPF Abnormal 0-5 /HPF Comment on above: Order Comment: Speci men Type: URINE SPECIMENOrdering Facility: [facility] Address: [address] [place] [address] Performed By: #### 2 4356-8, 630-4 ####[facility]ATORYCLIA [id number] [address] [place] Urinalysis, Completeon 10-23 BACTERIA 0 SEEN Normal None Seen [facility] Comment on above: Order Comment: YELENA TER SPECIMEN Result Comment: JOSE ENT DISCHARGED Performed By: #### L 400.0001 ####[facility] [address] [place], [address] EPI,SQUAMOUS 0 SEEN Normal 5-10 [facility] Comment on above: Order Comment: YELENA TER SPECIMEN Result Comment: JOSE ENT DISCHARGED Performed By: #### L 400.0001 ####[facility] [address] [place], [address] Mucus Ql (Urine sed) 0 SEEN Normal [facility] Comment on above: Order Comment: YELENA TER SPECIMEN Result Comment: JOSE ENT DISCHARGED Performed By: #### L 400.0001 ####[facility] [address] [place], [address] WBC 0 SEEN Normal 0-5 [facility] Comment on above: Order Comment: YELENA TER SPECIMEN Result Comment: JOSE ENT DISCHARGED Performed By: #### L 400.0001 ####[facility] [address] [place], [address] BILIRUBIN URINE Normal Negative [facility] Comment on above: Order Comment: YELENA TER SPECIMEN Result Comment: JOSE ENT DISCHARGED Performed By: #### L 400.0001 ####[facility] [address] [place], [address] Clarity (U) Normal Clear [facility] Comment on above: Order Comment: YELENA TER SPECIMEN Result Comment: JOSE ENT DISCHARGED Performed By: #### L 400.0001 ####[facility] [address] [place], [address] Color (U) Normal Yellow [facility] Comment on above: Order Comment: YELENA TER SPECIMEN Result Comment: JOSE ENT DISCHARGED Performed By: #### L 400.0001 ####[facility] [address] [place], [address] GLUCOSE, UR Normal Normal [facility] Comment on above: Order Comment: EYLENA TER SPECIMEN Result Comment: JOSE ENT DISCHARGED Performed By: #### L 400.0001 ####[facility] [address] [place], [address] KETONE UR Normal Negative [facility] Comment on above: Order Comment: YELENA TER SPECIMEN Result Comment: JOSE ENT DISCHARGED Performed By: #### L 400.0001 ####[facility] [address] [place], [address] LEUK ESTERASE Normal Negative [facility] Comment on above: Order Comment: YELENA TER SPECIMEN Result Comment: JOSE ENT DISCHARGED Performed By: #### L 400.0001 ####[facility] [address] [place], [address] Nitrite Ql (U) Normal Negative [facility] Comment on above: Order Comment: YELENA TER SPECIMEN Result Comment: JOSE ENT DISCHARGED Performed By: #### L 400.0001 ####[facility] [address] [place], [address] OCCULT BLOOD-UR Normal Negative [facility] Comment on above: Order Comment: YELENA TER SPECIMEN Result Comment: JOSE ENT DISCHARGED Performed By: #### L 400.0001 ####[facility] [address] [place], [address] pH UR Normal 5.0 - 8.0 [facility] Comment on above: Order Comment: YELENA TER SPECIMEN Result Comment: JOSE ENT DISCHARGED Performed By: #### L 400.0001 ####[facility] [address] [place], [address] PROT DIPSTX Normal Negative [facility] Comment on above: Order Comment: YELENA TER SPECIMEN Result Comment: JOSE ENT DISCHARGED Performed By: #### L 400.0001 ####[facility] [address] [place], [address] RBC Normal 0-5 [facility] Comment on above: Order Comment: YELENA TER SPECIMEN Result Comment: JOSE ENT DISCHARGED Performed By: #### L 400.0001 ####[facility] [address] [place], [address] SP.GR. DIPSTX Normal 1.002-1.030 [facility] Comment on above: Order Comment: YELENA TER SPECIMEN Result Comment: JOSE ENT DISCHARGED Performed By: #### L 400.0001 ####[facility] [address] [place], [address] UR Preservative Normal [facility] Comment on above: Order Comment: YELENA TER SPECIMEN Result Comment: JOSE ENT DISCHARGED Performed By: #### L 400.0001 ####[facility] [id number] [place], [address] UROBILI Normal Normal [facility] Comment on above: Order Comment: YELENA TER SPECIMEN Result Comment: JOSE ENT DISCHARGED Performed By: #### L 400.0001 ####[facility] [id number] [place], [address] White blood cell (WBC) count Ordered By: Kurtis Noyola on 10-23-2024 WBC (Bld) [#/Vol] 22.1 10*3/uL High 4.4-11.0 [facility] THYROID STIMULATING HORMONEo n 10-06-2024 TSH Qn 1.5 m[IU]/L [facility] TSH Qnon 10-06-2024 Interpretation and review of laboratory results Normal [facility] CNOVon 10-05-2024 CNOV Office Visit ([facility] ) ----- ALIYAH LEACH ([id number]) 1955 F Date Time Provider Department 10/05/24 1:00 PM [facility] During your visit today, we recorded the following information about you: Pulse Respiration Blood pressure Weight 89/minute 16/minute 126/74 105.7 kg Ynes Cameron APRN.[employer]IST 10/07/2024 9:44 AM Signed This is a 69 year old female who presents today with: Patient presents with: 6 Month Exam HISTORY OF PRESENT ILLNESS: Aliyah Leach is a 69 year old female. Patient presents with: 6 Month Exam Refers due for colonoscopy. Refers that the person that was doing them retired. Hx of hemicolectomy. Refers that they generally have to use a special scope to be able to pass. Refers she has been lightheaded. Refers that when she lays in bed, the room kind of spins. Will feel that way when she is up, too. Fell in March. Admits to not drinking much water, drinks more tea. DM: Reports overall feeling well. Medication side effects: No. Home sugar checks: running higher. Hypoglycemic spells: No. Watching diet: No. Unexpected weight loss: No. Polyuria, polydipsia: Incontinent. Thirsty all the time. Admits to drinking a lot of ice tea (uses stevia). Vision Changes: problem with left eye -- follows with eye doctor and has return visit in March. . Foot lesions or numbness or pain: hardly any feeling in the feet. HYPERLIPIDEMIA: Patient is taking medications: Yes. Patient is watching diet: No. Patient denies myalgias: Yes. Patient denies gi upset: Yes Depression Controlled with prozac. A little worse typically in the winter. HYPOTHYROID: Patient is compliant with medications: Yes Patient has changes in energy: I just never have any. Patient has changes in hair or skin: dry skin. Loses hair. 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, S/P EBRT and HDR brachytherapy Malignant neoplasm of colon, unspecified site 1999 Colon cancer Obesity, unspecified Psoriasis Radiation 2005 for Cervical Cancer PAST SURGICAL HISTORY Procedure Laterality Date ARTHRP KNE CONDYLEANDPLATU MEDIALANDLAT COMPARTMENTS 2010 left knee ARTHRP KNE CONDYLEANDPLATU MEDIALANDLAT COMPARTMENTS 01/01/2015 Right knee BIOPSY BREAST OPEN INCISIONAL Bx of breast, incisional CHOLECYSTECTOMY 1987 Open cholecystectomy COLECTOMY PARTIAL W/ANASTOMOSIS 1999 Hemicolectomy COLONOSCOPY 10/2018 COLONOSCOPY FLX DX W/COLLJ SPEC WHEN PFRMD Colonoscopy COLONOSCOPY FLX DX W/COLLJ SPEC WHEN PFRMD 09/09/2005 Colonoscopy COLONOSCOPY FLX DX W/COLLJ SPEC WHEN PFRMD 11/15/2008 Colonoscopy COLONOSCOPY FLX DX W/COLLJ SPEC WHEN PFRMD 02/11/12, 03/2015 Repeat in 3 years (03/2018) DILATION AND CURETTAGE DXAND/THER NONOBSTETRIC 05/29/2011 Dilation AND curettage PAST SURGICAL HISTORY OF Rt port placement REMV CATARACT EXTRACAP,INSERT LENS Left 10/2021 REPAIR FIRST ABDOMINAL WALL HERNIA 2000 Hernia repair, incisional TOT ABD HYST W/PARAORTIC AND PELVIC LYMPH NODE MARK 06/19/2011 Exploratory laparotomy with extensive lysis of adhesions, total abdominal hysterectomy, bilateral salpingo- oophorectomy, cystoscopy, and omentectomy. ALLERGIES Detrol [Tolterodine Tartrate] and Penicillins MEDICATIONS Current Outpatient Medications Medication Sig FLUoxetine (PROZAC) 40 mg capsule Take 1 capsule by mouth once daily. metFORMIN (GLUCOPHAGE) 1,000 mg tablet Take 1 tablet by mouth two times a day with meals. dulaglutide (TRULICITY) 1.5 mg/0.5 mL pen injector Inject 1.5 mg subcutaneously one time a week. Inject once per week. Discard Pen After levothyroxine (SYNTHROID) 112 mcg tablet Take 1 tablet by mouth once daily. pravastatin (PRAVACHOL) 40 mg tablet Take 1 tablet by mouth daily at bedtime. vit C,N-Vh-jtebr-lutein-zeaxa n (PRESERVISION AREDS-2) 250-90-40-1 mg Take 1 capsule by mouth twice daily with meals. lactobacillus comb no.10 (PROBIOTIC) 20 billion cell cap Take by mouth. CYANOCOBALAMIN/COBAMAMIDE (B12 SUBLINGUAL) Dissolve under the tongue. Cholecalciferol, Vitamin D3, 25 mcg (1,000 unit) cap Take 1,000 Units by mouth once daily. blood sugar diagnostic (ACCU-CHEK ROBIN) test strip Use as instructed Lancets (ACCU-CHEK SOFTCLIX LANCETS) lancets Once daily. 250.40 Blood-Glucose Meter (ACCU-CHEK ROBIN PLUS METER (more content not included)... Normal [facility] Comprehensive metabolic 2000 panelon 10-05-2024 Albumin [Mass/Vol] 4.3 g/dL Normal 3.9-4.9 [facility] Comment on above: Order Comment: Speci men Type: BLOOD SPECIMENOrdering Facility: [facility] Address: [address] [place] [address] Performed By: #### 2 4323-8, 31197-3 ####[facility] LABCLIA [id number] [place] [id number] [place] ALP [Catalytic activity/Vol] 55 U/L Normal 34-123 [facility] Comment on above: Order Comment: Speci men Type: BLOOD SPECIMENOrdering Facility: [facility] Address: [address] [place] [address] Performed By: #### 2 4323-8, 75351-9 ####[facility] LABCLIA [id number] [place] [address] [place] ALT [Catalytic activity/Vol] 23 U/L Normal 7-38 [facility] Comment on above: Order Comment: Speci men Type: BLOOD SPECIMENOrdering Facility: [facility] Address: [address] [place] [address] Performed By: #### 2 4323-8, 93700-7 ####[facility] LABCLIA [id number] [place] [address] [place] Anion gap [Moles/Vol] 17 mmol/L High 8-15 [facility] Comment on above: Order Comment: Speci men Type: BLOOD SPECIMENOrdering Facility: [facility] Address: [address] [place] [address] Performed By: #### 2 4323-8, 81615-4 ####[facility] LABCLIA [id number] [place] [address] [place] AST [Catalytic activity/Vol] 23 U/L Normal 13-35 [facility] Comment on above: Order Comment: Speci men Type: BLOOD SPECIMENOrdering Facility: [facility] Address: [address] [place] [address] Performed By: #### 2 4323-8, 83129-3 ####[facility] LABCLIA [id number] [place] [id number] [place] Bilirubin [Mass/Vol] 0.4 mg/dL Normal 0.2-1.3 [facility] Comment on above: Order Comment: Speci men Type: BLOOD SPECIMENOrdering Facility: [facility] Address: [address] [place] [address] Performed By: #### 2 4323-8, 10992-9 ####[facility] LABCLIA [id number] [place] [address] [place] Calcium [Mass/Vol] 10.0 mg/dL Normal 8.5-10.2 [facility] Comment on above: Order Comment: Speci men Type: BLOOD SPECIMENOrdering Facility: [facility] Address: [address] [place] [address] Performed By: #### 2 4323-8, 42523-5 ####[facility] LABCLIA [id number] [place] [address] [place] Chloride [Moles/Vol] 100 mmol/L Normal 98-107 [facility] Comment on above: Order Comment: Speci men Type: BLOOD SPECIMENOrdering Facility: [facility] Address: [address] [place] [address] Performed By: #### 2 4323-8, 69314-1 ####[facility] LABCLIA [id number] [place] [address] [place] CO2 [Moles/Vol] 21 mmol/L Low 22-30 [facility] Comment on above: Order Comment: Speci men Type: BLOOD SPECIMENOrdering Facility: [facility] Address: [address] [place] [address] Performed By: #### 2 4323-8, 17730-6 ####[facility] LABCLIA [id number] [place] [address] [place] Creatinine [Mass/Vol] 0.76 mg/dL Normal 0.58-0.96 [facility] Comment on above: Order Comment: Speci men Type: BLOOD SPECIMENOrdering Facility: [facility] Address: [address] [place] [address] Performed By: #### 2 4323-8, 10854-1 ####[facility] LABIA [id number] [place] [address] [place] Creatinine and Glomerular filtration rate.predicted panel (S/P/Bld) 84 mL/min/1.73m??? Normal >=60 [facility] Comment on above: Order Comment: Jack alberts Type: BLOOD SPECIMENOrdering Facility: [facility] Address: [address] [place] [address] Result Comment: Alecia mated Glomerular Filtration Rate (eGFR) is calculated using the 2020 CKD-EPI creatinine equation. This equation utilizes serum creatinine, sex, and age as parameters. The creatinine assay has traceable calibration to isotope dilution-mass spectrometry. Refer to KDIGO guidelines for clinical interpretation. In patients with unstable renal function, e.g. those with acute kidney injury, the eGFR may not accurately reflect actual GFR. Performed By: #### 2 4323-8, 83975-8 ####[facility] LABIA [id number] [place] [address] [place] Glucose [Mass/Vol] 173 mg/dL High 74-99 [facility] Comment on above: Order Comment: Jack alberts Type: BLOOD SPECIMENOrdering Facility: [facility] Address: [address] [place] [address] Result Comment: The [place] Diabetes Association (ADA) provides guidance for cutoff values for fasting glucose and random glucose. The ADA defines fasting as no caloric intake for at least 8 hours. Fasting plasma glucose results between 100 to 125 mg/dL indicate increased risk for diabetes (prediabetes). Fasting plasma glucose results greater than or equal to 126 mg/dL meet the criteria for diagnosis of diabetes. In the absence of unequivocal hyperglycemia, results should be confirmed by repeat testing. In a patient with classic symptoms of hyperglycemia or hyperglycemic crisis, random plasma glucose results greater than or equal to 200 mg/dL meet the criteria for diagnosis of diabetes. Reference: Standards of Medical Care in Diabetes 2016, [place] Diabetes Association. Diabetes Care. 2016.39(Suppl 1). Performed By: #### 2 4323-8, 37605-7 ####[facility] LABCLIA [id number] [address] [address] [place] Potassium [Moles/Vol] 4.5 mmol/L Normal 3.7-5.1 [facility] Comment on above: Order Comment: Speci men Type: BLOOD SPECIMENOrdering Facility: [facility] Address: [address] [place] [address] Performed By: #### 2 4323-8, 96660-9 ####[facility] LABCLIA [id number] [place] [address] [place] Protein [Mass/Vol] 7.3 g/dL Normal 6.3-8.0 [facility] Comment on above: Order Comment: Speci men Type: BLOOD SPECIMENOrdering Facility: [facility] Address: [address] [place] [address] Performed By: #### 2 432-8, 51063-6 ####[facility] LABCLIA [id number] [place] [address] [place] Sodium [Moles/Vol] 138 mmol/L Normal 136-144 [facility] Comment on above: Order Comment: Speci men Type: BLOOD SPECIMENOrdering Facility: [facility] Address: [address] [place] [address] Performed By: #### 2 4323-8, ####[facility] LABCLIA [id number] [place] [id number] [place] Urea nitrogen [Mass/Vol] 17 mg/dL Normal 7-21 [facility] Comment on above: Order Comment: Speci men Type: BLOOD SPECIMENOrdering Facility: [facility] Address: [address] [place] [id number] Performed By: #### 2 4323-8, 32981-7 ####[facility] LABCLIA [id number] [place] HbA1c (Bld)on 10-05-2024 Average glucose Estimated from glycated hemoglobin (Bld) [Mass/Vol] 126 mg/dL Normal [facility] Comment on above: Order Comment: Jack alberts Type: BLOOD SPECIMENOrdering Facility: [facility] Address: [address] [place] [address] Result Comment: eAG: (Estimated average glucose) is a calculated value from HgbA1c and is procurement representative of the average blood glucose level in the last 2-3 month period. Performed By: #### 5 5454-3 ####[facility] LABCLIA [id number] [address] [place] HbA1c (Bld) [Mass fraction] 6.0 % High 4.3-5.6 [facility] Comment on above: Order Comment: Jack alberts Type: BLOOD SPECIMENOrdering Facility: [facility] Address: [address] [place] [address] Result Comment: [place] Diabetes Association guidelines indicate that patients with HgbA1c in the range 5.7-6.4% are at increased risk for development of diabetes, and intervention by lifestyle modification may be beneficial. HgbA1c greater or equal to 6.5% is considered diagnostic of diabetes. Performed By: #### 5 5454-3 ####[facility] LABCLIA [id number] [place] [address] [place] Lipid 1996 panelon 5 Cholesterol [Mass/Vol] 145 mg/dL Normal <200 [facility] Comment on above: Order Comment: Jack alberts Type: BLOOD SPECIMENOrdering Facility: [facility] Address: [address] [place] [address] Result Comment: <200 mg/dL, Desirable 200-239 mg/dL, Borderline high >239 mg/dL, High Performed By: #### 2 4323-8, 85045-3 ####[facility] LABIA [id number] [address] [place] Cholesterol in HDL [Mass/Vol] 36 mg/dL Low >39 [facility] Comment on above: Order Comment: Sandieclaudio alberts Type: BLOOD SPECIMENOrdering Facility: [facility] Address: [address] [place] [address] Result Comment: 40-5 9 mg/dL, Acceptable >59 mg/dL, High: Negative risk factor for coronary heart disease <40 mg/dL, Low: Positive risk factor for coronary heart disease Performed By: #### 2 4323-8, 00213-9 ####[facility] LABCLIA [id number] [address] [facility] Cholesterol in LDL [Mass/Vol] 56 mg/dL Normal <100 [facility] Comment on above: Order Comment: Jack lexus Type: BLOOD SPECIMENOrdering Facility: [facility] Address: [address] [place] [address] Result Comment: <100 mg/dL, Optimal 100-129 mg/dL, Near optimal/above optimal 130-159 mg/dL, Borderline high 160-189 mg/dL, High >189 mg/dL, Very high Secondary prevention optimal LDL Cholesterol levels are recommended to be < 70 mg/dL Performed By: #### 2 4323-8, 12511-4 ####[facility] LABCLIA [id number] [address] Cholesterol in LDL/Cholesterol in HDL [Mass ratio] 1.56 {ratio} Normal <2.54 [facility] Comment on above: Order Comment: Jack alberts Type: BLOOD SPECIMENOrdering Facility: [facility] Address: [address] [place] [address] Result Comment: Refe rence: 1. National Cholesterol Education Program ATP III Guideline At-A-Glance Quick Desk Reference: National Heart, Lung, and Blood [place]. National Institutes of Health. 2001: NIH Publication No. 01-3305. 2. An International Atherosclerosis Society position paper: global recommendations for the management of dyslipidemia: executive summary, Atherosclerosis. 2014: 232(2):410-413. Performed By: #### 2 4323-8, 78249-1 ####[facility] LABCLIA [id number] [place] [id number] [place] Cholesterol in VLDL [Mass/Vol] 53 mg/dL High <30 [facility] Comment on above: Order Comment: Speci men Type: BLOOD SPECIMENOrdering Facility: [facility] Address: [address] [place] [address] Performed By: #### 2 4323-8, 11803-7 ####[facility] LABCLIA [id number] [place] [address] [place] Cholesterol non HDL [Mass/Vol] 109 mg/dL Normal <130 [facility] Comment on above: Order Comment: Speci men Type: BLOOD SPECIMENOrdering Facility: [facility] Address: [address] [place] [address] Result Comment: <130 mg/dL, Optimal 130-159 mg/dL, Near optimal/above optimal 160-189 mg/dL, Borderline high 190-219 mg/dL, High >219 mg/dL, Very high Secondary prevention optimal non HDL Cholesterol levels are recommended to be <100 mg/dL Performed By: #### 2 4323-8, 30594-7 ####[facility] LABIA [id number] [place] [address] [place] Cholesterol.total/Chol esterol in HDL [Mass ratio] 4.03 {ratio} Normal <5.10 [facility] Comment on above: Order Comment: Speci men Type: BLOOD SPECIMENOrdering Facility: [facility] Address: [address] [place] [address] Performed By: #### 2 4323-8, 92979-9 ####[facility] LABCLIA [id number] [place] [address] [place] FASTING TIME 12 hrs Normal [facility] Comment on above: Order Comment: Speci men Type: BLOOD SPECIMENOrdering Facility: [facility] Address: [address] [place] [address] Performed By: #### 2 4323-8, 59568-5 ####[facility] LABCLIA [id number] [place] [address] [place] Triglyceride [Mass/Vol] 266 mg/dL High <150 [facility] Comment on above: Order Comment: Speci men Type: BLOOD SPECIMENOrdering Facility: [facility] Address: [address] [place] [address] Result Comment: <150 mg/dL, Normal 150-199 mg/dL, Borderline high 200-499 mg/dL, High >499 mg/dL, Very high Performed By: #### 2 4323-8, 49423-2 ####[facility] LABCLIA [id number] [place] [address] [place] TSH SerPl-aCncon 10-05-2024 TSH Qn 1.500 m[IU]/L Normal 0.270-4.200 [facility] Comment on above: Order Comment: Speci men Type: BLOOD SPECIMENOrdering Facility: [facility] Address: [address] [place] [address] Performed By: #### 3 016-3 ####[facility] LABCLIA [id number] [place] [address] [place] DXA-AXIAL SKELETONon 023 [facility] ISAMAR SCREENINGon 10-02-2022 [facility] Absolute lymphocyte countOrd ered By: Dr. Carbone on 08-01-2022 Lymphocytes Auto (Unsp spec) [#/Vol] 1.72 10*3/uL 0.83-4.51 [facility] Basophil percentageOrdered B y: Dr. Carbone on 08-01-2022 Basophils/100 WBC (Bld) 0.4 % 0-1 [facility] Chloride [Moles/Vol] 106 mmol/L 98-107 [facility] Eosinophils/100 WBC (Bld) 2.6 % 0-5 [facility] Glucose [Mass/Vol] 123 mg/dL 74-106 [facility] Comment on above: Fasting Glucose resu lt from 100 to 125 mg/dL suggests IMPAIRED HOMEOSTASIS per A.D.A. criteria. Neutrophils (Bld) [#/Vol] 8.0 10*3/uL 2.0-7.7 [facility] Neutrophils/100 WBC (Bld) 72.3 % 47-70 [facility] Potassium [Moles/Vol] 4.3 mmol/L 3.5-5.1 [facility] Sodium [Moles/Vol] 137 mmol/L 136-145 [facility] WBC (Bld) [#/Vol] 11.1 10*3/uL 4.4-11.0 [facility] Blood erythrocytes count (nu mber/volume)Ordered By: Dr. Carbone on 08-01-2022 RBC (Bld) [#/Vol] 4.52 10*6/uL 4.2-5.4 [facility] Blood hemoglobin measurement (mass/volume)Ordered By: Dr. Carbone on 08-01-2022 Hemoglobin (Bld) [Mass/Vol] 12.3 g/dL 12.0-15.0 [facility] Blood lymphocytes/100 leukoc ytesOrdered By: Dr. Carbone on 08-01-2022 Lymphocytes/100 WBC (Bld) 15.5 % 19-41 [facility] Blood monocytes/100 leukocyt esOrdered By: Dr. Carbone on 08-01-2022 Monocytes/100 WBC (Bld) 8.6 % 0-10 [facility] Blood platelet mean volumeOr dered By: Dr. Carbone on 08-01-2022 Platelet mean volume (Bld) [Entitic vol] 9.5 fL 6.2-12.0 [facility] COVID-19 virus antigen assay Ordered By: Dr. Carbone on 08-01-2022 SARS-CoV-2 (COVID-19) Ag IA.rapid Ql (Resp) [facility] Determination of erythrocyte mean corpuscular volume (MCV)Ordered By: Dr. Carbone on 08-01-2022 MCV (RBC) [Entitic vol] 87.8 fL 81-99 [facility] Glucose Glucometer (BldC) [M ass/Vol]Ordered By: Dr. Carbone on 08-01-2022 Glucose [Mass/Vol] 153 mg/dL 74-106 [facility] Comment on above: MANAGEMENT OF PATIEN T CARE PER NURSING PROTOCOL Hematocrit Auto (Bld) [Volum e fraction]Ordered By: Dr. Carbone on 08-01-2022 Hematocrit (Bld) [Volume fraction] 39.7 % 37-47 [facility] Laboratory - Chemistry and C hemistry - challengeOrdered By: Dr. Carbone on 08-01-2022 CO2 [Moles/Vol] 28.0 mmol/L 21.0-32.0 [facility] Urea nitrogen/Creatinine [Mass ratio] 34.4 mg/mg 10-20 [facility] Laboratory - Hematology and Cell countsOrdered By: Dr. Carbone on 08-01-2022 Erythrocyte distribution width (RBC) [Entitic vol] 46.0 fL 35.1-43.9 [facility] Erythrocyte distribution width (RBC) [Ratio] 14.3 % 11.6-14.6 [facility] Immature granulocytes/100 WBC (Bld) 0.600 % 0.0-0.9 [facility] Comment on above: IG% - Immature Granu locytes (promyelocytes, myelocytes and metamyelocytes) > 1% indicates that a LEFT SHIFT is Present. MCH (RBC) [Entitic mass] 27.2 pg 27.0-32.0 [facility] Nucleated RBC/100 WBC (Bld) [Ratio] 0 % 0-5 [facility] MCHC Auto (RBC) [Mass/Vol]Or dered By: Dr. Carbone on 08-01-2022 MCHC (RBC) [Mass/Vol] 31.0 g/dL 32-36 [facility] No Panel InformationOrdered By: Dr. Carbone on 08-01-2022 Estimated Creatinine Clearance Calc 45.85 ml/min [facility] Estimated GFR (MDRD) Amer 149 mL/min >60 [facility] Comment on above: GFR Calc Estimated GFR (MDRD) Non-Af Amer 123 mL/min >60 [facility] Comment on above: Non- GFR Calc Platelets bldOrdered By: Dr. Carbone on 08-01-2022 Platelets (Bld) [#/Vol] 315 10*3/uL 150-450 [facility] Serum or plasma calcium alma urement (mass/volume)Ordered By: Dr. Carbone on 08-01-2022 Calcium [Mass/Vol] 9.2 mg/dL 8.5-10.1 [facility] Serum or plasma creatinine m easurement (mass/volume)Ordered By: Dr. Carbone on 08-01-2022 Creatinine [Mass/Vol] 0.52 mg/dL 0.55-1.02 [facility] Comment on above: The validity of the calculated GFR & GFRAA in patients over 70 years has not been determined. Clinical correlation is essential. Serum or plasma urea nitroge n measurement (mass/volume)Ordered By: Dr. Carbone on 08-01-2022 Urea nitrogen [Mass/Vol] 18 mg/dL 7-18 [facility] Thin prep Papanicolaou smear with manual screeningOrdered By: Dr. Carbone on 08-01-2022 Thin prep Papanicolaou smear with manual screening 3 5-15 [facility] Basophil percentageOrdered B y: Dr. Lmaas on 07-30-2022 Bilirubin [Mass/Vol] 0.50 mg/dL 0.20-1.00 [facility] Comment on above: For patients on eltr ombopag therapy, use of Dimension [place] TBIL is not recommended. Protein [Mass/Vol] 7.1 g/dL 6.4-8.2 [facility] Laboratory - Chemistry and C hemistry - challengeOrdered By: Dr. Lamas on 07-30-2022 ALP [Catalytic activity/Vol] 49 U/L 45-117 [facility] ALT [Catalytic activity/Vol] 126 U/L 13-56 [facility] Globulin (S) [Mass/Vol] 3.7 g/dL 2.2-4.2 [facility] Serum or plasma albumin alma urement (mass/volume)Ordered By: Dr. Lamas on 07-30-2022 Albumin [Mass/Vol] 3.4 g/dL 3.2-5.0 [facility] Serum or plasma albumin/glob ulin mass ratioOrdered By: Dr. Lamas on 07-30-2022 Albumin/Globulin [Mass ratio] 0.9 {ratio} 0.9-2.4 [facility] Thin prep Papanicolaou smear with manual screeningOrdered By: Dr. Lamas on 07-30-2022 Thin prep Papanicolaou smear with manual screening 79 U/L 15-37 [facility] Absolute lymphocyte counton 07-29-2022 Lymphocytes Auto (Unsp spec) [#/Vol] 2.12 10*3/uL 0.83-4.51 [facility] Work Phone: Basophil percentageon 2021 Basophils/100 WBC (Bld) 0.5 % 0-1 [facility] Work Phone: Bilirubin [Mass/Vol] 0.40 mg/dL 0.20-1.00 [facility] Work Phone: [phone] Comment on above: For patients on eltr ombopag therapy, use of Dimension [place] TBIL is not recommended. Chloride [Moles/Vol] 104 mmol/L 98-107 [facility] Work Phone: Eosinophils/100 WBC (Bld) 1.0 % 0-5 [facility] Work Phone: Glucose [Mass/Vol] 169 mg/dL 74-106 [facility] Work Phone: Comment on above: Fasting Glucose resu lt greater than or equal to 126 mg/dL suggests DIABETES MELLITUS per A.D.A. criteria. Neutrophils (Bld) [#/Vol] 14.0 10*3/uL 2.0-7.7 [facility] Work Phone: Neutrophils/100 WBC (Bld) 80.7 % 47-70 [facility] Work Phone: Potassium [Moles/Vol] 4.2 mmol/L 3.5-5.1 [facility] Work Phone: Protein [Mass/Vol] 7.5 g/dL 6.4-8.2 [facility] Work Phone: Sodium [Moles/Vol] 137 mmol/L 136-145 [facility] Work Phone: WBC (Bld) [#/Vol] 17.3 10*3/uL 4.4-11.0 [facility] Work Phone: Blood erythrocytes count (nu mber/volume)on 07-29-2022 RBC (Bld) [#/Vol] 4.93 10*6/uL 4.2-5.4 [facility] Work Phone: Blood hemoglobin measurement (mass/volume)on 07-29-2022 Hemoglobin (Bld) [Mass/Vol] 14.0 g/dL 12.0-15.0 [facility] Work Phone: Blood lymphocytes/100 leukoc yteson 07-29-2022 Lymphocytes/100 WBC (Bld) 12.3 % 19-41 [facility] Work Phone: Blood monocytes/100 leukocyt eson 07-29-2022 Monocytes/100 WBC (Bld) 4.3 % 0-10 [facility] Work Phone: Blood platelet mean volumeon 07-29-2022 Platelet mean volume (Bld) [Entitic vol] 9.3 fL 6.2-12.0 [facility] Work Phone: Determination of erythrocyte mean corpuscular volume (MCV)on 07-29-2022 MCV (RBC) [Entitic vol] 88.8 fL 81-99 [facility] Work Phone: Hematocrit Auto (Bld) [Volum e fraction]on 07-29-2022 Hematocrit (Bld) [Volume fraction] 43.8 % 37-47 [facility] Work Phone: Laboratory - Chemistry and C hemistry - challengeon 07-29-2022 ALP [Catalytic activity/Vol] 56 U/L 45-117 [facility] Work Phone: [phone] ALT [Catalytic activity/Vol] 172 U/L 13-56 [facility] Work Phone: CO2 [Moles/Vol] 26.0 mmol/L 21.0-32.0 [facility] Work Phone: Globulin (S) [Mass/Vol] 3.9 g/dL 2.2-4.2 [facility] Work Phone: Urea nitrogen/Creatinine [Mass ratio] 26.4 mg/mg 10-20 [facility] Work Phone: Laboratory - Hematology and Cell countson 07-29-2022 Erythrocyte distribution width (RBC) [Entitic vol] 45.8 fL 35.1-43.9 [facility] Work Phone: Erythrocyte distribution width (RBC) [Ratio] 14.2 % 11.6-14.6 [facility] Work Phone: Immature granulocytes/100 WBC (Bld) 1.200 % 0.0-0.9 [facility] Work Phone: Comment on above: IG% - Immature Granu locytes (promyelocytes, myelocytes and metamyelocytes) > 1% indicates that a LEFT SHIFT is Present. MCH (RBC) [Entitic mass] 28.4 pg 27.0-32.0 [facility] Work Phone: Nucleated RBC/100 WBC (Bld) [Ratio] 0 % 0-5 [facility] Work Phone: MCHC Auto (RBC) [Mass/Vol]on 07-29-2022 MCHC (RBC) [Mass/Vol] 32.0 g/dL 32-36 [facility] Work Phone: No Panel Informationon 07-29 Estimated Creatinine Clearance Calc 55.24 ml/min [facility] Work Phone: Estimated GFR (MDRD) Amer 87 mL/min >60 [facility] Work Phone: Comment on above: GFR Calc Estimated GFR (MDRD) Non-Af Amer 72 mL/min >60 [facility] Work Phone: Comment on above: Non- GFR Calc Platelets bldon 07-29-2022 Platelets (Bld) [#/Vol] 387 10*3/uL 150-450 [facility] Work Phone: Serum or plasma albumin alma urement (mass/volume)on 07-29-2022 Albumin [Mass/Vol] 3.6 g/dL 3.2-5.0 [facility] Work Phone: Serum or plasma albumin/glob ulin mass ratioon 07-29-2022 Albumin/Globulin [Mass ratio] 0.9 {ratio} 0.9-2.4 [facility] Work Phone: Serum or plasma calcium alma urement (mass/volume)on 07-29-2022 Calcium [Mass/Vol] 9.3 mg/dL 8.5-10.1 [facility] Work Phone: Serum or plasma creatinine m easurement (mass/volume)on 07-29-2022 Creatinine [Mass/Vol] 0.83 mg/dL 0.55-1.02 [facility] Work Phone: Comment on above: The validity of the calculated GFR & GFRAA in patients over 70 years has not been determined. Clinical correlation is essential. Serum or plasma urea nitroge n measurement (mass/volume)on 07-29-2022 Urea nitrogen [Mass/Vol] 22 mg/dL 7-18 [facility] Work Phone: Thin prep Papanicolaou smear with manual screeningon 07-29-2022 Thin prep Papanicolaou smear with manual screening 187 U/L 15-37 [facility] Work Phone: Thin prep Papanicolaou smear with manual screening 7 5-15 [facility] Work Phone: CBC W Auto Differential pane l (Bld)on 03-27-2022 Abs Immature Gran 0.03 k/uL <0.10 k/uL [facility] Basophils (Bld) [#/Vol] 0.05 10*3/uL <0.11 k/uL [facility] Basophils/100 WBC (Bld) 0.7 % [facility] Differential cell count method Nom (Bld) Auto [facility] Eosinophils (Bld) [#/Vol] 0.16 10*3/uL <0.46 k/uL [facility] Eosinophils/100 WBC (Bld) 2.1 % [facility] Erythrocyte distribution width (RBC) [Ratio] 13.8 % 11.5 - 15.0 % [facility] Hematocrit (Bld) [Volume fraction] 41.0 % 36.0 - 46.0 % [facility] Hemoglobin (Bld) [Mass/Vol] 13.3 g/dL 11.5 - 15.5 g/dL [facility] Immature Gran % 0.4 % [facility] Lymphocytes (Bld) [#/Vol] 1.33 10*3/uL 1.00 - 4.00 k/uL [facility] Lymphocytes/100 WBC (Bld) 17.3 % [facility] MCH (RBC) [Entitic mass] 27.7 pg 26.0 - 34.0 pg [facility] MCHC (RBC) [Mass/Vol] 32.4 g/dL 30.5 - 36.0 g/dL [facility] MCV (RBC) [Entitic vol] 85.2 fL 80.0 - 100.0 fL [facility] Monocytes (Bld) [#/Vol] 0.48 10*3/uL <0.87 k/uL [facility] Monocytes/100 WBC (Bld) 6.2 % [facility] Neutrophils (Bld) [#/Vol] 5.64 10*3/uL 1.45 - 7.50 k/uL [facility] Neutrophils/100 WBC (Bld) 73.3 % [facility] Nucleated RBC (Bld) [#/Vol] 10*3/uL <0.01 k/uL [facility] Nucleated RBC/100 WBC (Bld) [Ratio] 0.0 /100 WBC [facility] Platelet mean volume (Bld) [Entitic vol] 9.7 fL 9.0 - 12.7 fL [facility] Platelets (Bld) [#/Vol] 336 10*3/uL 150 - 400 k/uL [facility] RBC (Bld) [#/Vol] 4.81 10*6/uL 3.90 - 5.2 0 m/uL [facility] WBC (Bld) [#/Vol] 7.69 10*3/uL 3.70 - 11. 00 k/uL [facility] Comprehensive metabolic 2000 panelon 03-27-2022 Albumin [Mass/Vol] 4.0 g/dL 3.9 - 4.9 g/dL [facility] ALP [Catalytic activity/Vol] 67 U/L 34 - 123 U/L [facility] ALT [Catalytic activity/Vol] 29 U/L 7 - 38 U/L [facility] Anion gap [Moles/Vol] 13 mmol/L 9 - 18 mmol/L [facility] AST [Catalytic activity/Vol] 21 U/L 13 - 35 U/L [facility] Bilirubin [Mass/Vol] 0.3 mg/dL 0.2 - 1 .3 mg/dL [facility] Calcium [Mass/Vol] 8.8 mg/dL 8.5 - 10. 2 mg/dL [facility] Chloride [Moles/Vol] 104 mmol/L 97 - 10 5 mmol/L [facility] CO2 [Moles/Vol] 21 mmol/L Low 22 - 30 mmol/L [facility] Creatinine [Mass/Vol] 0.58 mg/dL 0.58 - 0.96 mg/dL [facility] Estimated Glomerular Filtration Rate 98 mL/min/1.73m >=60 mL/min/1.73m [facility] Glucose [Mass/Vol] 217 mg/dL High 74 - 99 mg/dL [facility] Potassium [Moles/Vol] 4.4 mmol/L 3.7 - 5.1 mmol/L [facility] Protein [Mass/Vol] 6.6 g/dL 6.3 - 8.0 g/dL [facility] Sodium [Moles/Vol] 138 mmol/L 136 - 144 mmol/L [facility] Urea nitrogen [Mass/Vol] 13 mg/dL 7 - 21 mg/dL [facility] XR Chest PA and Lateralon IMPRESSION: Stable exam without acute findings. Endoscopy Nurse: DILSHAD Transcribe Date/Time: Jul 31 2021 3:11P Dictated by : GRAEME CUENCA MD This examination was interpreted and the report reviewed and electronically signed by: GRAEME CUENCA MD on Jul 31 2021 3:12PM [facility] DIVISION OF RADIOLOGY * * *Final Report* * * DATE OF EXAM: Jul 31 2021 3:07PM WOX 5291 - XR CHEST 2V FRONTAL/LAT / PROCEDURE REASON: Cough * * * * Physician Interpretation * * * * EXAMINATION: CHEST RADIOGRAPH (2 VIEW FRONTAL & LATERAL) CLINICAL HISTORY: Cough MQ: XC2_6 EXAM DATE/TIME: 07/31/2021 3:07 PM COMPARISON: Chest x-ray on 05/20/2019. RESULT: Lines, tubes, and devices: None. Lungs and pleura: No consolidation. No lung mass. No pleural effusion. No pneumothorax. Cardiomediastinal silhouette: Stable cardiac silhouette and mediastinal contour. Bones and soft tissues: There are degenerative changes in the spine. [facility] * * *Final Report* * * DATE OF EXAM: Jul 31 2021 3:07PM WOX 5291 - XR CHEST 2V FRONTAL/LAT / PROCEDURE REASON: Cough * * * * Physician Interpretation * * * * EXAMINATION: CHEST RADIOGRAPH (2 VIEW FRONTAL & LATERAL) CLINICAL HISTORY: Cough MQ: XC2_6 EXAM DATE/TIME: 07/31/2021 3:07 PM COMPARISON: Chest x-ray on 05/20/2019. RESULT: Lines, tubes, and devices: None. Lungs and pleura: No consolidation. No lung mass. No pleural effusion. No pneumothorax. Cardiomediastinal silhouette: Stable cardiac silhouette and mediastinal contour. Bones and soft tissues: There are degenerative changes in the spine. IMPRESSION IMPRESSION: Stable exam without acute findings. Endoscopy Nurse: PSCB Transcribe Date/Time: Jul 31 2021 3:11P Dictated by : GRAEME CUENCA MD This examination was interpreted and the report reviewed and electronically signed by: GRAEME CUENCA MD on Jul 31 2021 3:12PM EST [facility] Radiology Study observation (narrative) [facility] XR Chest PA and LateralOrder ed By: [facility] Provider on 07-31-2021 [facility] Surgical Tissue Examon 04-11 Surgical Tissue Exam Test performed at [place] [address] NAME: ALIYAH LEACH REQUESTING: BENI ROBERT MD FINAL DIAGNOSIS: A) DUODENAL BIOPSIES - NO INFLAMMATORY PROCESS, VILLOUS ABNORMALITY OR OTHER DIAGNOSTIC ABNORMALITY IS IDENTIFIED. B) GASTRIC BIOPSY - MILD CHRONIC GASTRITIS. C) GASTROESOPHAGEAL JUNCTION BIOPSY - CHRONICALLY INFLAMED GASTRIC TYPE MUCOSA. COMMENT: No intestinal metaplasia is identified. D) GASTRIC BIOPSY - HYPERPLASTIC POLYP WITH ASSOCIATED MILD CHRONIC GASTRITIS. E) ASCENDING COLON BIOPSIES - BENIGN COLONIC MUCOSA WITH NO INFLAMMATORY PROCESS OR OTHER DIAGNOSTIC ABNORMALITY IDENTIFIED. F) DESCENDING COLON BIOPSIES - BENIGN COLONIC MUCOSA WITH NO INFLAMMATORY PROCESS OR OTHER DIAGNOSTIC ABNORMALITY IDENTIFIED. OPERATIVE PROCEDURE: EGD with biopsies and colonoscopy with biopsies CLINICAL INFORMATION: Diarrhea due to malabsorption [K90.9, R19.7] GROSS DESCRIPTION: A) Duodenum biopsies Received in formalin labeled duodenum biopsy are two irregular-shaped segments of brown soft tissue aggregating to 0.4 x 0.1 x 0.1 cm. The specimen is totally submitted in 1 cassette. B) Gastric biopsies Received in formalin labeled gastric biopsies are multiple irregular-shaped segments of salvador-brown soft tissue aggregating to 1.1 x 0.2 x 0.1 cm. The specimen is totally submitted in formalin in 1 cassette. C) GE junction biopsies Received in formalin labeled gastroesophageal junction biopsies is an irregular-shaped segment of salvador-brown soft tissue measuring 0.2 x 0.2 x 0.1 cm. The specimen is totally submitted in formalin in 1 cassette. D) Gastric polyp Received in formalin labeled gastric polyp is an irregular-shaped segment of salvador intestinal mucosa measuring 0.8 x 0.8 x 0.1 cm. A lesion is not seen. The tissue is trisected and totally submitted in formalin in 1 cassette. E) Ascending colon biopsies Received in formalin labeled ascending colon biopsies are two irregular-shaped segments of white soft tissue aggregating to 0.5 x 0.2 x 0.1 cm. The specimen is totally submitted in formalin in 1 cassette. F) Descending colon biopsies Received in formalin labeled descending colon biopsies are two irregular-shaped segments of salvador-white soft tissue aggregating to 0.4 x 0.1 x 0.1 cm. The specimen is totally submitted in formalin in 1 cassette. NICHELLE/farhat HEATH M.D. (Electronic signature on file) Signed out: 04/16/2020 11:50 PRINTED: 04/16/2020 Page 1 of 1 [facility] Comment on above: Performed By: #### S URG #### [place] [address] HPV High Riskon 07-09-2017 HPV High Risk See Ref Lab Rpt [facility] Comment on above: Performed By: #### [id number] ####[employer] [address] [id number] [place] [address] IG PAP [id number] 07-09-2017 Diagnosis: See Ref Lab Report Normal [facility] Comment on above: Performed By: #### [id number] ####[employer] [id number] [place] [address] Pathology ([facility])on 07-01-2017 Pathology ([facility]) FINAL GYNECOLOGIC CYTOLOGY [id number] ADEQUACYSatisfactory for Evaluation. Endocervical cells/transformation zone componentpresent.GENERAL CATEGORIZATIONEpithelial Cell AbnormalityDESCRIPTIVE DIAGNOSISHyperkeratosis present.Atypical glandular cells of undetermined significanceCOMMENTHigh Risk HPV was ordered and performed at [facility] Laboratory. Results arereported below in this report. A negative result is a normal result. Apositive result is an abnormal result.HPV HIGH RISK NEGATIVE: The results of this test indicate the patient'sspecimen is NEGATIVE for the following high-risk HPV types:16/18/31/33/35/39/4 5/51/52/56/58/59/66/68.CO NSULTING COMMENTSDrRenae Little has reviewed this case and concurs. RELATED LABORATORY RESULTSOrdered by: TIZANOreynaldo Date: 07/01/2017 Ord Time: 19:49Test Collected Result Abnormal Range Units SpecimenName D&T TypeHPV Negative NA MSCRNA, 7HighRiskThe HPV test detects E6/E7 viral messenger RNA (mRNA) high-risk HPV ifijsbqmo15,18,31,33,35,3 9,45,51,55,58,59,66, and 68 which are associated with cervicalcancer and its precursor lesions. However, cross-reactions with othergenotypes may occur. Results should be correlated with cytologic andhistologic findings. Sensitivity may be affected by cellularity of specimen.CLINICAL HISTORYComment: No LMP provided.SPECIMEN(A) SCREENING CERVICAL/ENDOCERVICAL LIQUID-BASED PAPPerformed at [facility], [address] [place], [place] [address]Screened by: ADDY COLLIER [employer] Signed Out by: CONCHA DE DIOS M.D. Reported: 07/08/2017 Normal [facility] Comment on above: Performed By: #### G YN ####[facility] [id number] [place] [address] COVID-19 virus antigen assay SARS-CoV-2 (COVID-19) Ag IA.rapid Ql (Resp) [facility] Work Phone: Vital Signs Date Time Vital Sign Value Performing Clinician Faci lity 06-07-2025 13:31-0400 Body height 162.[address] Bobby Grady MD Work Phone: [phone] [place] [address] 06-07-2025 13:31-0400 Body mass index (BMI) [Ratio] 39.3 kg/m2 Dr. Bobby Grady MD Work Phone: [phone] [address] 06-07-2025 13:31-0400 Body weight 103.[address] Bobby Grady MD Work Phone: [phone])[phone] [place] [address] 06-07-2025 13:31-0400 Diastolic blood pressure 69 mm[Hg] Dr. Bobby Grady MD Work Phone: [phone])[phone] [place] [address] 06-07-2025 13:31-0400 Heart rate 83 /min Dr. Bobby Grady MD Work Phone: [phone])[phone] [place] [address] 06-07-2025 13:31-0400 Respiratory rate 16 /min Dr. Bobby Grady MD Work Phone: [phone] [place] [address] 06-07-2025 13:31-0400 Systolic blood pressure 100 mm[Hg] Dr. Bobby Grady MD Work Phone: [phone])[phone] [place] [address] 04-19-2025 09:21-0400 Diastolic blood pressure 64 mm[Hg] Kiersten Diehl MD Work Phone: [facility] 04-19-2025 09:21-0400 Heart rate 69 /min Kiersten Diehl MD Work Phone: [facility] 04-19-2025 09:21-0400 Respiratory rate 18 /min Kiersten Diehl MD Work Phone: [facility] 04-19-2025 09:21-0400 SaO2% (BldA) [Mass fraction] 95 % Kiersten Diehl MD Work Phone: [facility] 04-19-2025 09:21-0400 Systolic blood pressure 134 mm[Hg] Kiersten Diehl MD Work Phone: [facility] 04-19-2025 07:30-0400 Body temperature 97 [degF] Kiersten Diehl MD Work Phone: [facility] 04-04-2025 16:35-0400 Body mass index (BMI) [Ratio] 40.15 kg/m2 Bobby Grady MD Work Phone: [facility] 04-04-2025 16:35-0400 Body weight 106.14 kg Bobby Grady MD Work Phone: [facility] 04-04-2025 16:35-0400 Diastolic blood pressure 62 mm[Hg] Bobby Grady MD Work Phone: [facility] 04-04-2025 16:35-0400 Heart rate 86 /min Bobby Grady MD Work Phone: [facility] 04-04-2025 16:35-0400 SaO2% (BldA) [Mass fraction] 96 % Bobby Grady MD Work Phone: [facility] 04-04-2025 16:35-0400 Systolic blood pressure 112 mm[Hg] Bobby Grady MD Work Phone: [facility] 03-17-2025 09:18-0400 Body height 162.6 cm Constance Rodriguez MD Work Phone: [facility] 03-17-2025 09:18-0400 Body mass index (BMI) [Ratio] 40.09 kg/m2 Constance Rodriguez MD Work Phone: [facility] 03-17-2025 09:18-0400 Body weight 106 kg Constance Rodriguez MD Work Phone: [facility] 03-17-2025 09:18-0400 Diastolic blood pressure 57 mm[Hg] Constance Rodriguez MD Work Phone: [facility] 03-17-2025 09:18-0400 Heart rate 72 /min Constance Rodriguez MD Work Phone: [facility] 03-17-2025 09:18-0400 SaO2% (BldA) [Mass fraction] 96 % Constance Rodriguez MD Work Phone: [facility] 03-17-2025 09:18-0400 Systolic blood pressure 131 mm[Hg] Constance Rodriguez MD Work Phone: [facility] 03-01-2025 10:32-0400 Body mass index (BMI) [Ratio] 39.82 kg/m2 Bobby Grady MD Work Phone: [facility] 03-01-2025 10:32-0400 Body weight 105.23 kg Bobby Grady MD Work Phone: [facility] 03-01-2025 10:32-0400 Diastolic blood pressure 85 mm[Hg] Bobby Grady MD Work Phone: [facility] 03-01-2025 10:32-0400 Heart rate 78 /min Bobby Grady MD Work Phone: [facility] 03-01-2025 10:32-0400 SaO2% (BldA) [Mass fraction] 96 % Bobby Grady MD Work Phone: [facility] 03-01-2025 10:32-0400 Systolic blood pressure 138 mm[Hg] Bobby Grady MD Work Phone: [facility] 02-10-2025 13:01-0400 Body height 162.[address] Bobby Grady MD Work Phone: [facility] 02-10-2025 13:01-0400 Body mass index (BMI) [Ratio] 39.8 kg/m2 Dr. Bobby Grady MD Work Phone: [facility] 02-10-2025 13:01-0400 Body weight 105.[address] Bobby Grady MD Work Phone: [facility] 02-10-2025 13:01-0400 Diastolic blood pressure 68 mm[Hg] Dr. Bobby Grady MD Work Phone: [facility] 02-10-2025 13:01-0400 Heart rate 72 /min Dr. Bobby Grady MD Work Phone: [facility] 02-10-2025 13:01-0400 Respiratory rate 16 /min Dr. Bobby Grady MD Work Phone: [facility] 02-10-2025 13:01-0400 Systolic blood pressure 119 mm[Hg] Dr. Bobby Grady MD Work Phone: [facility] 12-23-2024 12:14-0400 Body temperature 97.2 [degF] Elvirafelecia Bell RN Work Phone: [facility] 12-23-2024 12:14-0400 Diastolic blood pressure 72 mm[Hg] Elvira Bell RN Work Phone: [facility] 12-23-2024 12:14-0400 Heart rate 72 /min Elvira Bell RN Work Phone: [facility] 12-23-2024 12:14-0400 Respiratory rate 16 /min Elvirafelecia Bell RN Work Phone: [facility] 12-23-2024 12:14-0400 SaO2% (BldA) [Mass fraction] 98 % Elvirafelecia Bell RN Work Phone: [facility] 12-23-2024 12:14-0400 Systolic blood pressure 134 mm[Hg] Elvira Bell RN Work Phone: [facility] 12-19-2024 14:05-0400 Body mass index (BMI) [Ratio] 39.31 kg/m2 Bobby Grady MD Work Phone: [facility] 12-19-2024 14:05-0400 Body weight 103.87 kg Bobby Grady MD Work Phone: [facility] 12-19-2024 14:05-0400 Diastolic blood pressure 62 mm[Hg] Bobby Grady MD Work Phone: [facility] 12-19-2024 14:05-0400 Heart rate 83 /min Bobby Grady MD Work Phone: [facility] 12-19-2024 14:05-0400 SaO2% (BldA) [Mass fraction] 98 % Bobby Grady MD Work Phone: [facility] 12-19-2024 14:05-0400 Systolic blood pressure 104 mm[Hg] Bobby Grady MD Work Phone: [facility] 12-09-2024 12:10-0400 Body temperature 97.3 [degF] Elvirafelecia Bell RN Work Phone: [facility] 12-09-2024 12:10-0400 Diastolic blood pressure 76 mm[Hg] Elvira Bell RN Work Phone: [facility] 12-09-2024 12:10-0400 Heart rate 80 /min Elvira Bell RN Work Phone: [facility] 12-09-2024 12:10-0400 Respiratory rate 16 /min Elvira Bell RN Work Phone: [facility] 12-09-2024 12:10-0400 SaO2% (BldA) [Mass fraction] 99 % Elvira RN Work Phone: [facility] 12-09-2024 12:10-0400 Systolic blood pressure 134 mm[Hg] Elvira Bell RN Work Phone: [facility] 12-05-2024 08:29-0400 Body mass index (BMI) [Ratio] 39.9 kg/m2 Dr. Bobby Grady MD Work Phone: [facility] 12-05-2024 08:29-0400 Body weight 105.[address] Bobby Grady MD Work Phone: [facility] 12-05-2024 08:29-0400 Diastolic blood pressure 64 mm[Hg] Dr. Bobby Grady MD Work Phone: [facility] 12-05-2024 08:29-0400 Heart rate 70 /min Dr. Bobby Grady MD Work Phone: [facility] 12-05-2024 08:29-0400 Respiratory rate 16 /min Dr. Bobby Grady MD Work Phone: [facility] 12-05-2024 08:29-0400 Systolic blood pressure 103 mm[Hg] Dr. Bobby Grady MD Work Phone: [facility] 12-02-2024 13:06-0400 Body temperature 97.3 [degF] Elvirafelecia Bell RN Work Phone: [facility] 12-02-2024 13:06-0400 Diastolic blood pressure 76 mm[Hg] Elvirafelecia Bell RN Work Phone: [facility] 12-02-2024 13:06-0400 Heart rate 76 /min Elvirafelecia Bell RN Work Phone: [facility] 12-02-2024 13:06-0400 Respiratory rate 16 /min Elvira Most RN Work Phone: [facility] 12-02-2024 13:06-0400 SaO2% (BldA) [Mass fraction] 98 % Elvirafelecia Bell RN Work Phone: [facility] 12-02-2024 13:06-0400 Systolic blood pressure 140 mm[Hg] Elvira RN Work Phone: [facility] 11-29-2024 15:18-0400 Body height 162.6 cm Jacque Kalka PA-C Work Phone: [facility] 11-29-2024 15:18-0400 Body mass index (BMI) [Ratio] 39.48 kg/m2 Jacque Kalka PA-C Work Phone: [facility] 11-29-2024 15:18-0400 Body weight 104.33 kg Jacque Kalka PA-C Work Phone: [facility] 11-29-2024 15:18-0400 Diastolic blood pressure 72 mm[Hg] Jacque Kalka PA-C Work Phone: [facility] 11-29-2024 15:18-0400 Heart rate 72 /min Jacque Kalka PA-C Work Phone: [facility] 11-29-2024 15:18-0400 SaO2% (BldA) [Mass fraction] 98 % Jacque Ottoka PA-C Work Phone: [facility] 11-29-2024 15:18-0400 Systolic blood pressure 118 mm[Hg] Jacque Ottoka PA-C Work Phone: [facility] 11-25-2024 14:30-0400 Body temperature 97.11 [degF] Elvira Bell RN Work Phone: [facility] 11-25-2024 14:30-0400 Diastolic blood pressure 78 mm[Hg] Elvira Bell RN Work Phone: [facility] 11-25-2024 14:30-0400 Heart rate 72 /min Elvira Bell RN Work Phone: [facility] 11-25-2024 14:30-0400 Respiratory rate 16 /min Elvira Bell RN Work Phone: [facility] 11-25-2024 14:30-0400 SaO2% (BldA) [Mass fraction] 97 % Elvira Bell RN Work Phone: [facility] 11-25-2024 14:30-0400 Systolic blood pressure 140 mm[Hg] Elvira Bell RN Work Phone: [facility] 11-18-2024 12:46-0400 Body temperature 97.39 [degF] Liz Lopez RN Work Phone: [facility] 11-18-2024 12:46-0400 Diastolic blood pressure 70 mm[Hg] Liz Lopez RN Work Phone: [facility] 11-18-2024 12:46-0400 Heart rate 73 /min Liz Lopez RN Work Phone: [facility] 11-18-2024 12:46-0400 Respiratory rate 16 /min Liz Lopez RN Work Phone: [facility] 11-18-2024 12:46-0400 SaO2% (BldA) [Mass fraction] 97 % Liz Lopez RN Work Phone: [facility] 11-18-2024 12:46-0400 Systolic blood pressure 118 mm[Hg] Liz Lopez RN Work Phone: [facility] 11-11-2024 13:05-0400 Body temperature 97.3 [degF] Elvira Bell RN Work Phone: [facility] 11-11-2024 13:05-0400 Diastolic blood pressure 64 mm[Hg] Elvira Bell RN Work Phone: [facility] 11-11-2024 13:05-0400 Heart rate 76 /min Elvira Bell RN Work Phone: [facility] 11-11-2024 13:05-0400 Respiratory rate 16 /min Elvira Bell RN Work Phone: [facility] 11-11-2024 13:05-0400 SaO2% (BldA) [Mass fraction] 96 % Elvira Bell RN Work Phone: [facility] 11-11-2024 13:05-0400 Systolic blood pressure 138 mm[Hg] Elvira Bell RN Work Phone: [facility] 11-10-2024 11:12-0400 Body temperature 97.59 [degF] Melyssa Milvia FERTILIZER APPLICATOR Work Phone: [facility] 11-10-2024 11:12-0400 Diastolic blood pressure 76 mm[Hg] Melyssa Milvia FERTILIZER APPLICATOR Work Phone: [facility] 11-10-2024 11:12-0400 Heart rate 76 /min Melyssa Milvia FERTILIZER APPLICATOR Work Phone: [facility] 11-10-2024 11:12-0400 Respiratory rate 18 /min Melyssa Milvia FERTILIZER APPLICATOR Work Phone: [facility] 11-10-2024 11:12-0400 SaO2% (BldA) [Mass fraction] 98 % Melyssa Milvia FERTILIZER APPLICATOR Work Phone: [facility] 11-10-2024 11:12-0400 Systolic blood pressure 116 mm[Hg] Melyssa Milvia FERTILIZER APPLICATOR Work Phone: [facility] 11-08-2024 11:35-0400 Heart rate 70 /min Radha Uribe HUERTAS/L Work Phone: [facility] Comment on above: post tasks 11-08-2024 11:35-0400 SaO2% (BldA) [Mass fraction] 97 % Radha Uribe HUERTAS/L Work Phone: [facility] Comment on above: post tasks 11-08-2024 11:12-0400 Body temperature 97.11 [degF] Radha Uribe HUERTAS/L Work Phone: [facility] 11-08-2024 11:12-0400 Diastolic blood pressure 74 mm[Hg] Radha Cuvlernes HUERTAS/L Work Phone: [facility] 11-08-2024 11:12-0400 Respiratory rate 16 /min Radha Culvernes HUERTAS/L Work Phone: [facility] 11-08-2024 11:12-0400 Systolic blood pressure 128 mm[Hg] Radha Uribe HUERTAS/L Work Phone: [facility] 11-07-2024 15:43-0400 Body mass index (BMI) [Ratio] 40.51 kg/m2 Bobby Grady MD Work Phone: [facility] 11-07-2024 15:43-0400 Body weight 107.05 kg Bobby Grady MD Work Phone: [facility] 11-07-2024 15:43-0400 Diastolic blood pressure 60 mm[Hg] Bobby Grady MD Work Phone: [facility] 11-07-2024 15:43-0400 Heart rate 75 /min Bobby Grady MD Work Phone: [facility] 11-07-2024 15:43-0400 SaO2% (BldA) [Mass fraction] 96 % Bobby Grady MD Work Phone: [facility] 11-07-2024 15:43-0400 Systolic blood pressure 112 mm[Hg] Bobby Grady MD Work Phone: [facility] 11-07-2024 13:11-0400 Body temperature 97.39 [degF] Elvira Most RN Work Phone: [facility] 11-07-2024 13:11-0400 Diastolic blood pressure 72 mm[Hg] Elvira Most RN Work Phone: [facility] 11-07-2024 13:11-0400 Heart rate 80 /min Elvira Most RN Work Phone: [facility] 11-07-2024 13:11-0400 Respiratory rate 16 /min Elvira Most RN Work Phone: [facility] 11-07-2024 13:11-0400 SaO2% (BldA) [Mass fraction] 96 % Elvira Most RN Work Phone: [facility] 11-07-2024 13:11-0400 Systolic blood pressure 136 mm[Hg] Elvira Most RN Work Phone: [facility] 11-07-2024 12:05-0400 Diastolic blood pressure 76 mm[Hg] Melyssa Milvia FERTILIZER APPLICATOR Work Phone: [facility] 11-07-2024 12:05-0400 Heart rate 77 /min Melyssa Milvia FERTILIZER APPLICATOR Work Phone: [facility] 11-07-2024 12:05-0400 SaO2% (BldA) [Mass fraction] 98 % Melyssa Milvia FERTILIZER APPLICATOR Work Phone: [facility] 11-07-2024 12:05-0400 Systolic blood pressure 128 mm[Hg] Melyssa Milvia FERTILIZER APPLICATOR Work Phone: [facility] 11-07-2024 11:34-0400 Body temperature 97.59 [degF] Melyssa Milvia FERTILIZER APPLICATOR Work Phone: [facility] 11-07-2024 11:34-0400 Respiratory rate 18 /min Melyssa Steel FERTILIZER APPLICATOR Work Phone: [facility] 11-04-2024 11:30-0400 Diastolic blood pressure 84 mm[Hg] Anni Gerstenslager OT Work Phone: [facility] 11-04-2024 11:30-0400 Heart rate 78 /min Anni Gerstenslager OT Work Phone: [facility] 11-04-2024 11:30-0400 SaO2% (BldA) [Mass fraction] 97 % Anni Gerstenslager OT Work Phone: [facility] 11-04-2024 11:30-0400 Systolic blood pressure 128 mm[Hg] Anni Gerstenslager OT Work Phone: [facility] 11-04-2024 10:41-0400 Body temperature 96.6 [degF] Anni Gerstenslager OT Work Phone: [facility] 11-03-2024 14:13-0400 Body temperature 97.2 [degF] Latisha Halderman-Kan PT Work Phone: [facility] 11-03-2024 14:13-0400 Diastolic blood pressure 68 mm[Hg] Latisha Halderman-Kan PT Work Phone: [facility] 11-03-2024 14:13-0400 Heart rate 69 /min Latisha Halderman-Kan PT Work Phone: [facility] 11-03-2024 14:13-0400 Respiratory rate 18 /min Latisha Halderman-Kan PT Work Phone: [facility] 11-03-2024 14:13-0400 SaO2% (BldA) [Mass fraction] 97 % Latisha Halderman-Kan PT Work Phone: [facility] 11-03-2024 14:13-0400 Systolic blood pressure 130 mm[Hg] Latisha Halderman-Kan PT Work Phone: [facility] 11-03-2024 13:08-0400 Body temperature 98.01 [degF] Danitza David RN Work Phone: [facility] 11-03-2024 13:08-0400 Diastolic blood pressure 80 mm[Hg] Danitza David RN Work Phone: [facility] 11-03-2024 13:08-0400 Heart rate 75 /min Danitza David RN Work Phone: [facility] 11-03-2024 13:08-0400 Respiratory rate 16 /min Danitza David RN Work Phone: [facility] 11-03-2024 13:08-0400 SaO2% (BldA) [Mass fraction] 97 % Danitza David RN Work Phone: [facility] 11-03-2024 13:08-0400 Systolic blood pressure 155 mm[Hg] Danitza David RN Work Phone: [facility] 11-02-2024 11:51-0400 Body height 162.6 cm Neela Magana RN Work Phone: [facility] 11-02-2024 11:51-0400 Body mass index (BMI) [Ratio] 37.66 kg/m2 Neela Magana RN Work Phone: [facility] 11-02-2024 11:51-0400 Body weight 99.52 kg Neela Magana RN Work Phone: [facility] 11-02-2024 11:51-0400 Diastolic blood pressure 64 mm[Hg] Neela Magana RN Work Phone: [facility] 11-02-2024 11:51-0400 Heart rate 117 /min Neela Magana RN Work Phone: [facility] 11-02-2024 11:51-0400 SaO2% (BldA) [Mass fraction] 97 % Neela Magana RN Work Phone: [facility] 11-02-2024 11:51-0400 Systolic blood pressure 126 mm[Hg] Neela Magana RN Work Phone: [facility] 11-02-2024 11:09-0400 Body temperature 97.2 [degF] Neela Magana RN Work Phone: [facility] 11-02-2024 11:09-0400 Respiratory rate 18 /min Neela Magana RN Work Phone: [facility] 10-23-2024 08:00-0500 Body temperature 98.1 [degF] Dr. Bobby Grady MD Work Phone: [facility] 10-23-2024 08:00-0500 Diastolic blood pressure 60 mm[Hg] Dr. Bobby Grady MD Work Phone: [facility] 10-23-2024 08:00-0500 Heart rate 91 /min Dr. Bobby Grady MD Work Phone: [facility] 10-23-2024 08:00-0500 Inhaled oxygen flow rate 2 L/min Dr. Bobby Grady MD Work Phone: [facility] 10-23-2024 08:00-0500 Respiratory rate 18 /min Dr. Bobby Grady MD Work Phone: [facility] 10-23-2024 08:00-0500 SaO2% (BldA) [Mass fraction] 98 % Dr. Bobby Grady MD Work Phone: [facility] 10-23-2024 08:00-0500 Systolic blood pressure 104 mm[Hg] Dr. Bobby Grady MD Work Phone: [facility] 10-23-2024 01:09-0500 Body mass index (BMI) [Ratio] 41.6 kg/m2 Dr. Bobby Grady MD Work Phone: [facility] 10-23-2024 01:09-0500 Body weight [address] Bobby Grady MD Work Phone: [facility] 10-05-2024 12:57-0500 Body mass index (BMI) [Ratio] 37.61 kg/m2 Ynes Haagen [employer] MANAGER.[employer] BIOLOGIST Work Phone: [facility] 10-05-2024 12:57-0500 Body weight 105.69 kg Ynes Haagen [employer] MANAGER.M[employer]RAT[employer] G[employer] BIOLOGIST Work Phone: [facility] 10-05-2024 12:57-0500 Diastolic blood pressure 74 mm[Hg] Ynes Haagen [employer]OL[employer] CLUB MANAGER.M[employer]RATORY G[employer] BIOLOGIST Work Phone: [facility] 10-05-2024 12:57-0500 Heart rate 89 /min Ynes Haagen [employer]UB MANAGER.M[employer]RAT[employer] G[employer] BIOLOGIST Work Phone: [facility] 10-05-2024 12:57-0500 Respiratory rate 16 /min Ynes Haagen [employer]OL[employer]UB MANAGER.M[employer]RAT[employer] BIOLOGIST Work Phone: [facility] 10-05-2024 12:57-0500 SaO2% (BldA) [Mass fraction] 98 % Ynes Haagen [employer]UB MANAGER.M[employer]RAT[employer] BIOLOGIST Work Phone: [facility] 10-05-2024 12:57-0500 Systolic blood pressure 126 mm[Hg] Ynes Haagen [employer] CLUB MANAGER.M[employer]RAT[employer] BIOLOGIST Work Phone: [facility] 05-19-2024 13:30-0400 Body height 167.6 cm Jo Ann [place] GOL[employer]UB MANAGER.M[employer]RAT[employer] BIOLOGIST Work Phone: [facility] 05-19-2024 13:30-0400 Body mass index (BMI) [Ratio] 38.25 kg/m2 Jo Ann Richa [employer]OL[employer]UB MANAGER.M[employer]RAT[employer] BIOLOGIST Work Phone: [facility] 05-19-2024 13:30-0400 Body weight 107.5 kg Jo Ann Richa [employer]OL[employer] CLUB MANAGER.M[employer]RATORY G[employer] BIOLOGIST Work Phone: [facility] 05-19-2024 13:30-0400 Diastolic blood pressure 78 mm[Hg] Jo Ann [place] [employer]OL[employer] CLUB MANAGER.M[employer]RAT[employer] G[employer] BIOLOGIST Work Phone: [facility] 05-19-2024 13:30-0400 Systolic blood pressure 132 mm[Hg] Jo Ann [place] [employer] MANAGER.M[employer]RAT[employer] G[employer] BIOLOGIST Work Phone: [facility] 04-04-2024 13:20-0400 Body mass index (BMI) [Ratio] 40.34 kg/m2 Ynes Haagen [employer] MANAGER.M[employer] BIOLOGIST Work Phone: [facility] 04-04-2024 13:20-0400 Body weight 106.59 kg Ynes Gunnagen [employer]OL[employer] CLUB MANAGER.M[employer]RAT[employer] BIOLOGIST Work Phone: [facility] 04-04-2024 13:20-0400 Diastolic blood pressure 86 mm[Hg] Ynes Haagen [employer] CLUB MANAGER.M[employer]RAT[employer] G[employer] BIOLOGIST Work Phone: [facility] 04-04-2024 13:20-0400 Heart rate 87 /min Ynes Haagen [employer]UB MANAGER.M[employer] BIOLOGIST Work Phone: [facility] 04-04-2024 13:20-0400 Respiratory rate 16 /min Ynes Haagen [employer] MANAGER.M[employer] BIOLOGIST Work Phone: [facility] 04-04-2024 13:20-0400 SaO2% (BldA) [Mass fraction] 95 % Ynes Cameron [employer] MANAGER.M[employer] BIOLOGIST Work Phone: [facility] 04-04-2024 13:20-0400 Systolic blood pressure 132 mm[Hg] Ynes Haagen [employer] MANAGER.M[employer] BIOLOGIST Work Phone: [facility] 11-03-2023 13:27-0400 Body weight 105.69 kg NA Yeboah PA-C Work Phone: [facility] 11-03-2023 13:27-0400 Diastolic blood pressure 71 mm[Hg] NA Yeboah PA-C Work Phone: [facility] 11-03-2023 13:27-0400 Heart rate 75 /min NA Yeboah PA-C Work Phone: [facility] 11-03-2023 13:27-0400 Respiratory rate 16 /min NA Yeboah PA-C Work Phone: [facility] 11-03-2023 13:27-0400 SaO2% (BldA) [Mass fraction] 98 % NA Yeboah PA-C Work Phone: [facility] 11-03-2023 13:27-0400 Systolic blood pressure 111 mm[Hg] NA Yeboah PA-C Work Phone: [facility] 10-05-2023 13:07-0500 Body weight 105.69 kg NA Yeboah PA-C Work Phone: [facility] 10-05-2023 13:07-0500 Diastolic blood pressure 70 mm[Hg] NA Yeboah PA-C Work Phone: [facility] 10-05-2023 13:07-0500 Heart rate 87 /min NA Yeboah PA-C Work Phone: [facility] 10-05-2023 13:07-0500 Respiratory rate 16 /min NA Yeboah PA-C Work Phone: [facility] 10-05-2023 13:07-0500 SaO2% (BldA) [Mass fraction] 98 % NA Yeboah PA-C Work Phone: [facility] 10-05-2023 13:07-0500 Systolic blood pressure 112 mm[Hg] NA Yeboah PA-C Work Phone: [facility] 04-02-2023 14:07-0400 Body weight 109.05 kg NA Yeboah PA-C Work Phone: [facility] 04-02-2023 14:07-0400 Diastolic blood pressure 82 mm[Hg] NA Yeboah PA-C Work Phone: [facility] 04-02-2023 14:07-0400 Heart rate 87 /min NA Yeboah PA-C Work Phone: [facility] 04-02-2023 14:07-0400 Respiratory rate 16 /min NA Yeboah PA-C Work Phone: [facility] 04-02-2023 14:07-0400 SaO2% (BldA) [Mass fraction] 97 % NA Yeboah PA-C Work Phone: [facility] 04-02-2023 14:07-0400 Systolic blood pressure 116 mm[Hg] NA Yeboah PA-C Work Phone: [facility] 08-19-2022 15:12-0500 Diastolic blood pressure 80 mm[Hg] Ynes Haagen [employer] MANAGER.M[employer]RATORY G[employer] BIOLOGIST Work Phone: [facility] 08-19-2022 15:12-0500 Heart rate 90 /min Ynes Haagen [employer] MANAGER.M[employer] BIOLOGIST Work Phone: [facility] 08-19-2022 15:12-0500 Respiratory rate 18 /min Ynes Haagen [employer]UB MANAGER.M[employer]RAT[employer] BIOLOGIST Work Phone: [facility] 08-19-2022 15:12-0500 SaO2% (BldA) [Mass fraction] 97 % Ynes Cameron [employer] CLUB MANAGER.M[employer]RATORY G[employer] BIOLOGIST Work Phone: [facility] 08-19-2022 15:12-0500 Systolic blood pressure 132 mm[Hg] Ynes Gunnagen [employer]UB MANAGER.M[employer]RATORY G[employer] BIOLOGIST Work Phone: [facility] 08-01-2022 15:00-0500 Body temperature 98 [degF] Dr. Bobby Grady Work Phone: [facility] 08-01-2022 15:00-0500 Diastolic blood pressure 66 mm[Hg] Dr. Bobby Grady Work Phone: [facility] 08-01-2022 15:00-0500 Heart rate 81 /min Dr. Bobby Grady Work Phone: [facility] 08-01-2022 15:00-0500 SaO2% (BldA) [Mass fraction] 94 % Dr. Bobby Grady Work Phone: [facility] 08-01-2022 15:00-0500 Systolic blood pressure 140 mm[Hg] Dr. Bobby Grady Work Phone: [facility] 08-01-2022 11:00-0500 SaO2% (BldA) [Mass fraction] 95 % Dr. Bobby Grady Work Phone: [facility] Work Phone: 08-01-2022 09:00-0500 Body temperature 97.8 [degF] Dr. Bobby Grady Work Phone: [facility] Work Phone: 08-01-2022 09:00-0500 Diastolic blood pressure 64 mm[Hg] Dr. Bobby Grady Work Phone: [facility] Work Phone: 08-01-2022 09:00-0500 Heart rate 80 /min Dr. Bobby Grady Work Phone: [facility] Work Phone: 08-01-2022 09:00-0500 Respiratory rate 16 /min Dr. Bobby Grady Work Phone: [facility] 08-01-2022 09:00-0500 Systolic blood pressure 144 mm[Hg] Dr. Bobby Grady Work Phone: [facility] Work Phone: 08-01-2022 03:00-0500 Inhaled oxygen concentration 1 % Dr. Bobby Grady Work Phone: [facility] 08-01-2022 03:00-0500 Inhaled oxygen flow rate 1 L/min Dr. Bobby Grady Work Phone: [facility] 07-30-2022 14:39-0500 Body height 162.[address] Bobby Grady Work Phone: [phone] [place] [address] 07-30-2022 14:39-0500 Body weight 113.[address] Bobby Grady Work Phone: [facility] 07-29-2022 20:31-0500 Body mass index (BMI) [Ratio] 42.7 kg/m2 Dr. Bobby Grady Work Phone: [facility] 07-29-2022 16:13-0500 Diastolic blood pressure 57 mm[Hg] [facility] Work Phone: 07-29-2022 16:13-0500 Heart rate 78 /min [facility] Work Phone: 07-29-2022 16:13-0500 Respiratory rate 18 /min [facility] Work Phone: 07-29-2022 16:13-0500 SaO2% (BldA) [Mass fraction] 94 % [facility] Work Phone: 07-29-2022 16:13-0500 Systolic blood pressure 149 mm[Hg] [facility] Work Phone: 07-29-2022 16:08-0500 Body height 162.56 cm [facility] Work Phone: 07-29-2022 16:08-0500 Body mass index (BMI) [Ratio] 42.8 kg/m2 [facility] Work Phone: 07-29-2022 16:08-0500 Body temperature 96.8 [degF] [facility] Work Phone: 07-29-2022 16:08-0500 Body weight 113.3 kg [facility] Work Phone: 02-05-2022 15:15-0400 Diastolic blood pressure 60 mm[Hg] Beni Robert MD Work Phone: [facility] 02-05-2022 15:15-0400 SaO2% (BldA) [Mass fraction] 96 % Beni Robert MD Work Phone: [facility] 02-05-2022 15:15-0400 Systolic blood pressure 112 mm[Hg] Beni Robert MD Work Phone: [facility] 02-05-2022 15:05-0400 Respiratory rate 16 /min Beni Robert MD Work Phone: [facility] 02-05-2022 14:55-0400 Body temperature 97.7 [degF] Beni Robert MD Work Phone: [facility] 02-05-2022 12:55-0400 Body height 162.6 cm Beni Robert MD Work Phone: [facility] 02-05-2022 12:55-0400 Body weight 115.21 kg Beni Robert MD Work Phone: [facility] 02-05-2022 12:55-0400 Heart rate 94 /min Beni Robert MD Work Phone: [facility] 01-30-2022 13:23-0400 Body height 162.6 cm Michael Rolon MD Work Phone: [facility] 01-30-2022 13:23-0400 Body temperature 97.11 [degF] Michael Rolon MD Work Phone: [facility] 01-30-2022 13:23-0400 Body weight 117.84 kg Michael Rolon MD Work Phone: [facility] 01-30-2022 13:23-0400 Diastolic blood pressure 72 mm[Hg] Michael Rolon MD Work Phone: [facility] 01-30-2022 13:23-0400 Heart rate 95 /min Michael Rolon MD Work Phone: [facility] 01-30-2022 13:23-0400 SaO2% (BldA) [Mass fraction] 96 % Michael Rolon MD Work Phone: [facility] 01-30-2022 13:23-0400 Systolic blood pressure 119 mm[Hg] Michael Rolon MD Work Phone: [facility] Encounters Encounter Date Encounter Type Care Provider Facility Start: 06-26-2025 End: 06-26-2025 ambulatory JADA OSBORN Facility:[id number] Start: 06-21-2025 End: 06-21-2025 ambulatory DIMITRIS ROBLES Facility:[facility] Start: 06-20-2025 End: 06-20-2025 ambulatory DIMITRIS ROBLES Facility:[id number] Start: 06-09-2025 End: 06-09-2025 ambulatory BOBBY GRADY Facility:[facility] Start: 06-07-2025 End: 06-07-[address] Wily Wen MD -[facility] Work Phone: Start: 06-07-2025 End: 06-07-2025 ambulatory Bobby Grady Facility:[facility] Start: 05-31-2025 End: 06-05-2025 Evaluation and management of inpatient BOBBY GRADY Facility:[id number] Start: 05-29-2025 End: 05-29-2025 ambulatory JADA OSBORN Facility:[id number] Start: 05-26-2025 ambulatory [facility] Facility:[facility] Start: 05-23-2025 End: 05-23-2025 ambulatory [facility] Facility:[id number] Start: 05-22-2025 End: 05-22-2025 ambulatory CONSTANCE RODRIGUEZ Facility:[facility] Start: 05-03-2025 ambulatory [facility] Facility:[facility] Start: 05-03-2025 End: 05-03-2025 Subsequent hospital visit by physician [facility] Work Phone: Radiology Comment on above: Right ureteral calcu tam [N20.1] Start: 04-19-2025 ambulatory [facility] Facility[facility] Start: 04-19-2025 End: 04-19-2025 Subsequent hospital visit by physician Kiersten Diehl MD Work Phone: [facility] Comment on above: Personal history of colon cancer [Z85.038] Start: 04-12-2025 End: 04-12-2025 Telephone encounter Constance Rodriguez MD Work Phone: Pulmonary Medicine Comment on above: Results (Iron levels ) Start: 04-05-2025 End: 04-05-2025 Telephone encounter Radha Nelson PA-C Work Phone: [facility] Start: 04-04-2025 End: 04-04-2025 Patient encounter procedure Bobby Grady MD Work Phone: [facility] Comment on above: Visual hallucination (Primary Dx); Sleep disorder; Primary hypertension; Atrial fibrillation with RVR (HCC); Abnormal MRI Start: 04-04-2025 End: 04-04-2025 ambulatory BOBBY GRADY Facility:[facility] Start: 04-03-2025 End: 04-03-2025 Telephone encounter Constance Rodriguez MD Work Phone: Pulmonary Medicine Comment on above: Results Start: 04-02-2025 End: 04-03-2025 Refill Bobby Grady MD Work Phone: [facility] [place] Comment on above: Refill Request Start: 03-29-2025 End: 03-29-2025 ambulatory CONSTANCE RUI Facility:[facility] Start: 03-17-2025 End: 03-17-2025 Office outpatient new 45 minutes Constance Rodriguez MD Work Phone: Neurology Comment on above: Unspecified sleep ap hollie (Primary Dx); Visual hallucination; Restless legs syndrome; Type 2 diabetes mellitus without complication, unspecified whether rodent exterminator insulin use (HCC); BMI 40.0-44.9, adult (HCC); Sleep initiation disorder Start: 03-17-2025 End: 03-17-2025 ambulatory CONSTANCE RUI Facility:[facility] Start: 03-08-2025 End: 03-09-2025 Refill Bobby Grady MD Work Phone: [facility] [place] Comment on above: Refill Request Start: 03-06-2025 ambulatory BOBBY GRADY Facility :[facility] Start: 03-06-2025 End: 03-06-2025 Subsequent hospital visit by physician [employer] [facility] (I-Stat/1.5t) Work Phone: Radiology Comment on above: Other symptoms and s igns involving the nervous system [R29.818] Start: 03-02-2025 End: 03-13-2025 Follow-up encounter Bobby Grady MD Work Phone: Pulmonology [facility] Start: 03-01-2025 End: 03-01-2025 ambulatory BOBBY GRADY Facility:[facility] Start: 03-01-2025 End: 03-01-2025 Patient encounter procedure Bobby Grady MD Work Phone: [facility] [place] Comment on above: Other symptoms and s igns involving the nervous system (Primary Dx); Visual hallucination; Sleep disorder; Encounter for screening examination for other mental health and behavioral disorders; Recurrent major depression in partial remission; Atrial fibrillation with RVR (HCC); Primary hypertension; Idiopathic dilatation of pulmonary artery (HCC); Malignant neoplasm of colon, unspecified part of colon (HCC); Type 2 diabetes mellitus without complication, without long-term current use of insulin (HCC); Hypertriglyceridemia; Endometrial cancer (HCC); Hypothyroidism, unspecified type; Vitamin D deficiency Start: 03-01-2025 End: 03-01-2025 ambulatory [facility] Facility:[facility] Start: 02-20-[address] Dakota Hatfield MD -Cardiovascular Services Work Phone: Start: 02-20-2025 ambulatory Lonny Hatfield [facility] Start: 02-20-2025 Non-patient / Non-visit Dr. Beto Olivares MD -[facility] Work Phone: Start: 02-10-2025 End: 02-10-[address] Lonny Hatfield MD -[facility] Work Phone: Start: 02-10-2025 End: 02-10-[address] Bobby Grady MD Work Phone: [facility] Work Phone: Start: 02-05-2025 End: 02-06-2025 Refill Amparo Crowley APRN.CNP Work Phone: [facility] Comment on above: Refill Request Start: 02-02-2025 End: 04-04-2025 Refill Bobby Grady MD Work Phone: [facility] Comment on above: Refill Request Start: 01-30-2025 ambulatory [facility] Facility :[facility] Start: 01-30-2025 End: 01-30-2025 Subsequent hospital visit by physician Screen Mammo [facility] Mammogram Comment on above: Encounter for screen ing mammogram for breast cancer [Z12.31] Start: 01-24-2025 End: 01-25-2025 Refill Bobby Grady MD Work Phone: [facility] [place] Comment on above: Refill Request Start: 01-24-2025 End: 01-24-2025 Office outpatient visit 15 minutes Dimitris Travis [place] Work Phone: Urology Comment on above: Vesicovaginal fistul a (Primary Dx); Right ureteral calculus Start: 01-23-2025 End: 01-23-2025 Telephone encounter Jacque Reveles PA-C Work Phone: [facility] [place] Comment on above: Appointment (Colonos copy) Start: 12-26-2024 End: 12-26-2024 Refill Bobby Grady MD Work Phone: [facility] [place] Comment on above: Refill Request Start: 12-23-2024 End: 12-23-2024 Home visit Elvira Bell RN Work Phone: [facility] Comment on above: SN AGENCY DC W VISIT Start: 12-22-2024 End: 12-22-2024 ambulatory TRAMAINE DASH Facility:[id number] Start: 12-19-2024 End: 12-19-2024 Patient encounter procedure Bobby Grady MD Work Phone: [facility] [place] Comment on above: Right ureteral calcu tam (Primary Dx); Diabetic polyneuropathy associated with type 2 diabetes mellitus (HCC); Atrial fibrillation with RVR (HCC); Kidney stone on left side Start: 12-19-2024 End: 12-19-2024 ambulatory BOBBY GRADY Facility:[facility] Start: 12-12-2024 Patient encounter status Jada Osborn MD Work Phone: [facility] Start: 12-12-2024 End: 12-12-2024 Telephone encounter Jada Osborn MD Work Phone: [facility] Comment on above: Follow Up Start: 12-12-2024 End: 12-12-2024 ambulatory JADA OSBORN Facility:[id number] Start: 12-09-2024 Patient encounter status Elvira Bell RN Work Phone: [facility] Work Phone: Start: 12-09-2024 End: 12-09-2024 Home visit Elvira Bell RN Work Phone: [facility] Comment on above: SN ROUTINE Start: 12-07-2024 End: 12-07-2024 Telephone encounter Jada Osborn MD Work Phone: Urology Comment on above: Patient Question Start: 12-05-2024 End: 12-05-[address] Wily Wen MD -[facility] Work Phone: Start: 12-05-2024 End: 12-05-[address] Wily Wen MD [facility] Start: 12-05-2024 End: 12-05-2024 ambulatory Bobby Grady Facility:[facility] Start: 12-02-2024 End: 12-02-2024 Home visit Elvira Bell RN Work Phone: [facility] Comment on above: SN ROUTINE Start: 11-30-2024 End: 11-30-2024 Refill Bobby Grady MD Work Phone: [facility] Comment on above: Refill Request Start: 11-29-2024 End: 11-29-2024 ambulatory JACQUE REVELES Facility:[facility] Start: 11-29-2024 End: 11-29-2024 Patient encounter procedure Jacque Anushka PA-C Work Phone: [facility] [place] Comment on above: Personal history of colon cancer (Primary Dx) Start: 11-29-2024 End: 11-29-2024 Telephone encounter Bobby Grady MD Work Phone: [facility] Comment on above: Hematuria Start: 11-25-2024 End: 11-25-2024 Home visit Elvira Bell RN Work Phone: [facility] Comment on above: SN ROUTINE Start: 11-22-2024 End: 11-22-2024 Telephone encounter Bobby Grady MD Work Phone: [facility] Start: 11-21-2024 End: 01-21-2025 Follow-up encounter Bobby Grady MD Work Phone: [facility] [place] Start: 11-21-2024 End: 11-21-2024 Telephone encounter Bobby Grady MD Work Phone: [facility] [place] Comment on above: Results Refill Request Start: 11-18-2024 End: 11-18-2024 Telephone encounter Liz Lopez RN Work Phone: [facility] Comment on above: Home Care (Pt issues ) Refill Request Start: 11-18-2024 End: 11-18-2024 Home visit Liz Lopez RN Work Phone: [facility] Comment on above: SN ROUTINE Start: 11-14-2024 End: 11-14-2024 Patient Outreach Thang Peter RN [facility] Comment on above: Transitional Care Mike tiwarijuanis (TCM Initial Discharge: 10/31/24) Start: 11-12-2024 End: 11-12-2024 Home visit Anni Benoit OT Work Phone: [facility] Comment on above: OT DISC DC WO VISIT Start: 11-11-2024 End: 11-11-2024 Home visit Elvira Bell RN Work Phone: [facility] Comment on above: SN ROUTINE Start: 11-10-2024 End: 11-10-2024 Home visit Melyssa Steel FERTILIZER APPLICATOR Work Phone: [facility] Comment on above: FERTILIZER APPLICATOR ROUTINE PT DISC DC WO VISIT Start: 11-08-2024 End: 11-08-2024 Home visit Radha Uribe HUERTAS/L Work Phone: [facility] Comment on above: HUERTAS ROUTINE Start: 11-07-2024 End: 11-07-2024 ambulatory BOBBY GRADY Facility:[facility] Start: 11-07-2024 End: 11-07-2024 Patient encounter procedure Bobby Grady MD Work Phone: [facility] Comment on above: Severe sepsis (HCC) (Primary Dx); Malignant neoplasm of colon, unspecified part of colon (HCC); Idiopathic dilatation of pulmonary artery (HCC); Atrial fibrillation with RVR (HCC); Obesity, Class III, BMI 40-49.9 (morbid obesity) (HCC); Diabetic polyneuropathy associated with type 2 diabetes mellitus (HCC); Kidney stone on left side; Right ureteral calculus; Primary hypertension Start: 11-07-2024 End: 11-07-2024 Home visit Melyssa Steel FERTILIZER APPLICATOR Work Phone: [facility] Comment on above: FERTILIZER APPLICATOR ROUTINE SN ROUTINE Start: 11-04-2024 End: 11-04-2024 Telephone encounter Jada Osborn MD Work Phone: Urology Comment on above: Orders Start: 11-04-2024 End: 11-04-2024 Home visit Anni Benoit OT Work Phone: [facility] Comment on above: OT EVAL Start: 11-03-2024 End: 11-03-2024 Home visit Danitza David RN Work Phone: [facility] Comment on above: SN ROUTINE PT EVAL Start: 11-02-2024 End: 11-02-2024 ambulatory Fabiana Toribio MD Work Phone: [employer] Comment on above: Encounter for medica l assessment (Primary Dx) Start: 11-02-2024 End: 11-02-2024 Patient encounter status Fabiana Toribio MD Work Phone: [facility] Work Phone: Start: 11-02-2024 End: 11-02-2024 Telemedicine consultation with patient Fabiana Toribio MD Work Phone: [facility] Start: 11-02-2024 End: 11-07-2024 Telephone encounter Neela Magana RN Work Phone: [facility] Comment on above: Home Care (Update) Home Care (Nephrosto my management orders) Start: 11-02-2024 End: 11-02-2024 Home visit Neela Magana RN Work Phone: [facility] Comment on above: SN SOC Start: 11-01-2024 End: 11-04-2024 Patient Outreach Britany Liu RN Work Phone: [facility] Comment on above: Transition Of Care ( D/C 10/31 [facility]) Hospital Follow Up Start: 10-31-2024 End: 10-31-2024 Telephone encounter Shital Flores LPN Work Phone: [facility] Comment on above: Home Care (MD maricel fu) Home Care (Confirmat ion call) Start: 10-26-2024 End: 10-26-2024 Evaluation and management of inpatient [facility] Facility:[id number] Start: 10-23-2024 End: 10-31-2024 Evaluation and management of inpatient KURTIS NOYOLA Facility:[id number] Start: 10-23-2024 End: 10-23-2024 Emergency department patient visit Dr. Kurtis Noyola MD -Emergency Department Work Phone: Start: 10-07-2024 End: 12-07-2024 Follow-up encounter Ynes Cameron APRN.CNP Work Phone: [facility] [place] Start: 10-05-2024 End: 10-05-2024 Office outpatient visit 25 minutes Ynes Cameron APRN.CNP Work Phone: [facility] [place] Comment on above: Type 2 diabetes mayra itus without complication, without long- term current use of insulin (HCC) (Primary Dx); Change in bowel habits; Encounter for immunization; Hypothyroidism, unspecified type; Mixed hyperlipidemia; Lightheadedness; Recurrent major depression in partial remission (HCC) Start: 10-05-2024 End: 10-05-2024 ambulatory BOBBY GRADY Facility:[facility] Start: 07-28-2024 End: 07-28-2024 Refill Bobby Grady MD Work Phone: [facility] [place] Comment on above: Refill Request Start: 07-04-2024 End: 07-05-2024 Refill Bobby Grady MD Work Phone: [facility] [place] Comment on above: Refill Request Start: 05-19-2024 End: 05-19-2024 Patient encounter procedure Jo Annstephanie GallardoIrcha MIGRATORY GAME BIRD BIOLOGIST Work Phone: OB/Gynecology Comment on above: Encounter for gyneco logical examination (general) (routine) without abnormal findings (Primary Dx); Endometrial cancer (HCC); History of cervical cancer; Encounter for screening mammogram for breast cancer; Screening for vaginal cancer; Encounter for screening for human papillomavirus (HPV) Start: 05-19-2024 End: 05-19-2024 Patient encounter status Jo Ann Gallardocalf MIGRATORY GAME BIRD BIOLOGIST Work Phone: [facility] Start: 04-22-2024 End: 04-22-2024 Refill Bobby Grady MD Work Phone: [facility] [place] Comment on above: Refill Request Start: 04-04-2024 End: 04-04-2024 Office outpatient visit 25 minutes Ynes Cameron APRN.MIGRATORY GAME BIRD BIOLOGIST Work Phone: [facility] [place] Comment on above: Type 2 diabetes mayra itus without complication, without long- term current use of insulin (HCC) (Primary Dx); Skin lesion; Endometrial cancer (HCC); History of cervical cancer; Mixed hyperlipidemia; Recurrent major depression in partial remission (HCC); Hypothyroidism, unspecified type Start: 03-31-2024 Telephone encounter Amparo Crowley APRN.MIGRATORY GAME BIRD BIOLOGIST Work Phone: [facility] [place] Comment on above: Results Start: 03-29-2024 Refill Bobby Grady MD Work Phone: [facility] [place] Comment on above: Refill Request Start: 03-11-2024 Refill Bobby Grady MD Work Phone: [facility] [place] Comment on above: Refill Request Start: 02-10-2024 ambulatory My Workman MA [facility] [place] Start: 02-10-2024 Patient encounter procedure My Workman MA [facility] Comment on above: Population Health Na vigation Outreach Refill Request Start: 01-25-2024 Refill Bobby Grady MD Work Phone: [facility] [place] Comment on above: Refill Request Start: 12-25-2023 Telephone encounter Valerie Yeboah BEATA Work Phone: [facility] [place] Comment on above: Erroneous encounter- disregard Forms Start: 11-27-2023 Telephone encounter Valerie Yeboah BEATA Work Phone: [facility] [place] Comment on above: Forms Start: 11-26-2023 Telephone encounter Bobby Grady MD Work Phone: [facility] [place] Comment on above: Medication Problem Start: 11-03-2023 End: 11-03-2023 Patient encounter procedure Valerie Yeboah BEATA Work Phone: [facility] [place] Comment on above: Albuminuria (Primary Dx); Ectatic thoracic aorta (HCC) Start: 10-23-2023 Refill Bobby Grady MD Work Phone: [facility] [place] Comment on above: Refill Request Start: 10-15-2023 Documentation procedure Mammography Coordinator [facility] Start: 10-15-2023 Letter encounter Mammography Coordinator [facility] Start: 10-14-2023 End: 10-14-2023 Subsequent hospital visit by physician Screen Mammo [facility] M[facility] Comment on above: Encounter for screen ing mammogram for breast cancer [Z12.31] Start: 10-09-2023 Telephone encounter Valerie Hunterok COTA Work Phone: [facility] [place] Start: 10-05-2023 End: 10-05-2023 Patient encounter procedure Valerie Yeboah BEATA Work Phone: [facility] [place] Comment on above: Encounter for immuni zation (Primary Dx); Encounter for screening mammogram for breast cancer; Ectatic thoracic aorta (HCC); Idiopathic dilatation of pulmonary artery (HCC); Screening for colon cancer; Type 2 diabetes mellitus without complication, without long-term current use of insulin (HCC); Neurogenic bladder; Acute midline low back pain without sciatica; Abnormal circadian rhythm; History of colon cancer, stage I; Recurrent major depression in partial remission (HCC); Vitamin D deficiency; Intrinsic eczema Start: 05-12-2023 Refill Bobby Grady MD Work Phone: [facility] [place] Comment on above: Refill Request Start: 05-10-2023 Refill Valerie Hunter on PA-C Work Phone: [facility] [place] Comment on above: Refill Request Start: 04-22-2023 End: 04-22-2023 Subsequent hospital visit by physician Bone Density [facility] Work Phone: Radiology Comment on above: Asymptomatic postmen opausal state [Z78.0] Start: 04-15-2023 Refill Bobby Grady MD Work Phone: [facility] [place] Comment on above: Refill Request Start: 04-02-2023 End: 04-02-2023 Patient encounter procedure Valerie Hunteron PA-C Work Phone: [facility] [place] Comment on above: Ectatic thoracic aor ta (HCC) (Primary Dx); Idiopathic dilatation of pulmonary artery (HCC); Mixed hyperlipidemia; Hypertriglyceridemia; Type 2 diabetes mellitus without complication, without long-term current use of insulin (HCC); Diabetic polyneuropathy associated with type 2 diabetes mellitus (HCC); Albuminuria; Hypothyroidism, unspecified type; Obesity, Class III, BMI >= 40 (morbid obesity) E66.01; S/P hysterectomy with oophorectomy; Endometrial cancer (HCC); History of cervical cancer; History of colon cancer; Mixed incontinence; Recurrent major depression in partial remission (HCC); Vitamin D deficiency; Intrinsic eczema Start: 03-30-2023 ambulatory Valerie Hunter on PA-C Work Phone: [facility] [place] Comment on above: Blood tests Start: 02-23-2023 Refill Bobby Grady MD Work Phone: [facility] [place] Comment on above: Refill Request Start: 02-13-2023 Refill Valerie Hunter on PA-C Work Phone: [facility] [place] Comment on above: Refill Request Start: 11-27-2022 ambulatory Viridiana Omer [facility] Start: 11-11-2022 Refill Valerie Hunter on PA-C Work Phone: [facility] Comment on above: Refill Request Start: 11-06-2022 End: 11-06-2022 ambulatory Silviano Rasmussen PT Work Phone: [facility] Comment on above: Pain in joint of rig ht hip (Primary Dx) Start: 11-03-2022 ambulatory Viridiana Omer [facility] Start: 10-30-2022 End: 10-30-2022 ambulatory Silviano Rasmussen PT Work Phone: [facility] Comment on above: Pain in joint of rig ht hip (Primary Dx) Start: 10-16-2022 End: 10-16-2022 ambulatory Silviano Rasmussen PT Work Phone: [facility] Comment on above: Pain in joint of rig ht hip Start: 10-03-2022 Documentation procedure Mammography Coordinator [facility] Start: 10-03-2022 Letter encounter Mammography Coordinator [facility] Start: 10-02-2022 End: 10-02-2022 Subsequent hospital visit by physician Screen Mammo [facility] Comment on above: Encounter for screen ing mammogram for breast cancer [Z12.31] Start: 09-02-2022 End: 09-23-[address] Bobby Grady Work Phone: [facility] Work Phone: Start: 09-02-2022 End: 09-23-[address] Bobby Grady Work Phone: [facility] Start: 09-01-2022 Refill Bobby Grady MD Work Phone: [facility] Comment on above: Refill Request Start: 08-19-2022 End: 08-19-2022 Office outpatient visit 15 minutes Ynes Cameron APRN.CNP Work Phone: [facility] Comment on above: Pressure injury of s kin of buttock, unspecified injury stage, unspecified laterality (Primary Dx) Start: 08-14-2022 Refill Bobby Grady MD Work Phone: [facility] Comment on above: Refill Request Start: 08-11-2022 ambulatory Bobby Grady MD Work Phone: [facility] Comment on above: Scheduled Start: 08-07-2022 Refill Valerie Hunter on PA-C Work Phone: [facility] Comment on above: Refill Request Start: 08-02-2022 Telephone encounter Bobby Grady MD Work Phone: [facility] Comment on above: Patient Update Start: 08-01-2022 Non-patient / Non-visit Dr. Bobby Grady Work Phone: [facility] Start: 07-31-2022 Non-patient / Non-visit Dr. Bobby Grady Work Phone: [facility] Start: 07-30-2022 Non-patient / Non-visit Dr. Bobby Grady Work Phone: [facility] Start: 07-29-2022 Non-patient / Non-visit Dr. Bobby Grady Work Phone: [facility] Start: 07-29-2022 End: 08-01-2022 Evaluation and management of inpatient [facility] 3 Start: 07-04-2022 Refill Bobby Grady MD Work Phone: [facility] Comment on above: Refill Request Start: 05-22-2022 Refill Bobby Grady MD Work Phone: [facility] Comment on above: Refill Request Start: 05-12-2022 Refill Bobby Grady MD Work Phone: [facility] Comment on above: Refill Request Start: 03-27-2022 Refill Bobby Grady MD Work Phone: [facility] Comment on above: Refill Request Orders () Start: 02-26-2022 Refill Bobby Grady MD Work Phone: [facility] Comment on above: Refill Request Start: 02-17-2022 Refill Bobby Grady MD Work Phone: [facility] [place] Comment on above: Refill Request Start: 02-05-2022 End: 02-05-2022 Subsequent hospital visit by physician Beni Robert MD Work Phone: [facility] Comment on above: Change in bowel habi ts [R19.4] Start: 01-30-2022 End: 01-30-2022 ambulatory Michael Rolon MD Work Phone: [facility] Gynecology Oncology Comment on above: History of cervical cancer (Primary Dx); History of colon cancer; History of uterine cancer; Vesicovaginal fistula Start: 01-30-2022 End: 01-30-2022 Patient encounter procedure Michael Rolon MD Work Phone: [facility] Start: 12-16-2021 Telephone encounter Beni gonzalez MD Work Phone: [facility] Comment on above: Medication Request Start: 07-31-2021 End: 07-31-2021 Subsequent hospital visit by physician Zana [facility] [place] Work Phone: Radiology Comment on above: Cough [R05.9] Start: 07-01-2017 End: 07-02-2017 Ambulatory Gilbert Meghna Bryan Facility:[facility] Start: 07-01-2017 End: 07-02-2017 [facility] Procedures Date Procedure Procedure Detail Performing Clinician Start: 04-19-2025 Colonoscopy flx dx w/collj spec when pfrmd Jacque Reveles PA-C Work Phone: Start: 04-19-2025 Gluc bld gluc mntr dev cleared fda spec home use [facility] Provider Start: 04-19-2025 Colonoscopy Kiersten Diehl MD Work Phone: Start: 03-06-2025 Mri brain brain stem w/o w/contrast material Bobby Grady MD Work Phone: Start: 12-05-2024 Evaluation of diagnostic study results Dr. Bobby Grady MD Work Phone: Start: 10-26-2024 Echocardiography KURTIS NOYOLA Start: 10-23-[address] Bobby Grady MD Work Phone: Start: 10-23-[address] Bobby Grady MD Work Phone: Start: 10-23-2024 Computed tomography of abdomen and pelvis with intravenous contrast Dr. Bobby Grady MD Work Phone: Start: 10-05-2024 [employer] COVID-19 VACCINE AGE 12+ YR (COMIRNATY) Ynes Cameron GOLF CLUB MANAGERMYNOR Work Phone: Start: 10-05-2023 INFLUENZA VACCINE, PRSV FREE, AGE 65+ YR, HIGH DOSE, QUADRIVALENT (FLUZONE HIGH-DOSE) Valerie [employer] Work Phone: Start: 04-22-2023 Dxa bone density study 1/> sites axial skel Bobby Grady MD Work Phone: Start: 10-02-2022 End: 10-02-2022 Mammography Bulk Order Provider Start: 07-29-2022 X-ray of chest posteroanterior view Start: 08-14-2021 Mammography Beni Robert MD Work Phone: Start: 07-31-2021 Radiologic exam chest 2 views Ozzy Petty MD Work Phone: Start: 04-11-2020 Colonoscopy Beni Robert MD Work Phone: Start: 06-22-2011 H/O: hysterectomy S/P hysterectomy with oophorectomy Beni Robert MD Work Phone: Start: 06-22-2011 H/O: surgery S/P hysterectomy with oophorectomy Bobby Grady MD Work Phone: H/O: surgery S/P hysterectomy with oophorectomy Valerie Yeboah PA-C Work Phone: Viral antigen assay Dr. Elie Grady Work Phone: Viral antigen assay Dr. Elie Grady Work Phone: Plan of Treatment Date Care Activity Detail Author Start: 03-13-2030 Urine microalbumin profile [facility] Start: 04-19-2028 Screening for malignant neoplasm of colon [facility] Start: 11-14-2026 Screening for malignant neoplasm of colon [facility] Start: 04-20-2026 Glaucoma screening Dilated Retinal Exam [facility] Start: 04-19-2026 Screening for malignant neoplasm of colon Colonoscopy [facility] Start: 04-04-2026 Annual PCP Team Chronic Disease Visit Annual PCP Team Chronic Disease Visit [facility] Start: 03-01-2026 Annual PCP Team Chronic Disease Visit Annual PCP Team Chronic Disease Visit [facility] Start: 03-01-2026 Anxiety Screening Anxiety Screening [facility] Start: 01-30-2026 Screening for malignant neoplasm of breast Mammogram Screening [facility] Start: 12-19-2025 Annual PCP Team Chronic Disease Visit Annual PCP Team Chronic Disease Visit [facility] Start: 12-19-2025 BP Controlled (<130/80) BP Controlled (<130/80) [facility] Start: 11-29-2025 BP Controlled (<130/80) BP Controlled (<130/80) [facility] Start: 11-18-2025 BP Controlled (<130/80) BP Controlled (<130/80) [facility] Start: 11-10-2025 BP Controlled (<130/80) BP Controlled (<130/80) [facility] Start: 11-08-2025 BP Controlled (<130/80) BP Controlled (<130/80) [facility] Start: 11-07-2025 Annual PCP Team Chronic Disease Visit Annual PCP Team Chronic Disease Visit [facility] Start: 11-07-2025 BP Controlled (<130/80) BP Controlled (<130/80) [facility] Start: 11-02-2025 BP Controlled (<130/80) BP Controlled (<130/80) [facility] Start: 10-05-2025 Annual PCP Team Chronic Disease Visit Annual PCP Team Chronic Disease Visit [facility] Start: 10-05-2025 BP Controlled (<130/80) BP Controlled (<130/80) [facility] Start: 10-05-2025 Hepatitis B surface antibody level LDL Cholesterol [facility] Start: 09-01-2025 Hemoglobin A1c measurement HbA1C [facility] Start: 08-09-2025 End: 08-09-2025 Patient encounter procedure 08/09/2025 2:00 PM EST Office Visit [facility] [place] [address] [place] [address] Bobby Grady MD [address] [place], [place] [id number] physical [facility] Comment on above: physical Start: 06-09-2025 End: 06-09-2025 Patient encounter procedure 06/09/2025 2:30 PM EDT Office Visit Neurology [address] [place], [place] [id number] Shital Ray, GOLF CLUB MANAGER.MIGRATORY GAME BIRD BIOLOGIST [address] [place] [address] Sleep study Follow up Neurology Comment on above: Sleep study Follow up Start: 05-23-2025 End: 05-23-2025 Patient encounter procedure 05/23/2025 1:00 PM EDT Office Visit Urology [address] [place] [address] Dimitris Robles, [employer]OL[employer]UB MANAGER.MIGRATORY GAME BIRD BIOLOGIST [address] [place] [address] 3 month follow w/ kub and US Urology Comment on above: 3 month follow w/ kub and US Start: 05-22-2025 End: 05-22-2025 Patient encounter procedure 05/22/2025 9:05 PM EDT Office Visit Neurology [address] [place] [address] Visual hallucination [R44.1]; Unspecified sleep apnea [G47.30]; Restless legs syndrome [G25.81]; Type 2 diabetes mellitus without complication, unspecified whether halfway insulin use (HCC) [E11.9]; BMI 40.0-44.9, adult (HCC) [Z68.41] Neurology Comment on above: Visual hallucination [R44.1]; Unspecifie d sleep apnea [G47.30]; Restless legs syndrome [G25.81]; Type 2 diabetes mellitus without complication, unspecified whether rodent exterminator insulin use (HCC) [E11.9]; BMI 40.0-44.9, adult (HCC) [Z68.41] Start: 05-09-2025 End: 05-09-2025 Patient encounter procedure 05/09/2025 3:00 PM EDT Office Visit Neurology [address] [place] [address] Ashlie Aldrich DO [address] [place] [address] Sleep disorder [G47.9] Neurology Comment on above: Sleep disorder [G47.9] Start: 05-03-2025 End: 05-03-2025 Patient encounter procedure 05/03/2025 1:00 PM EDT Appointment Radiology [address] [place] [address] kidney US Radiology Comment on above: kidney US Start: 05-02-2025 End: 05-02-2025 Patient encounter procedure 05/02/2025 2:40 PM EDT Office Visit Urology [address] [place] [address] Dimitris Robles, PAYAL.MIGRATORY GAME BIRD BIOLOGIST [address] [place] [address] 3 month follow w/ kub and US Urology Comment on above: 3 month follow w/ kub and US Start: 04-26-2025 End: 02-23-2026 US Kidney - bilateral and Urinary bladder US KIDNEY/BLADDER Radiology Routine Right ureteral calculus Expected: 04/26/2025, Expires: 02/23/2026 [facility] Comment on above: Expected: 04/26/2025, Expires: Start: 04-26-2025 End: 02-23-2026 XR Abdomen Supine and Upright XR ABDOMEN 1V SUPINE Radiology Routine Right ureteral calculus Expected: 04/26/2025, Expires: 02/23/2026 [facility] Work Phone: Comment on above: Expected: 04/26/2025, Expires: Start: 04-24-2025 Influenza vaccination Influenza Vaccine (#1) [facility] Start: 04-19-2025 End: 04-19-2025 Patient encounter procedure [facility] Start: 04-18-2025 Glaucoma screening Dilated Retinal Exam [facility] Start: 04-04-2025 End: 04-04-2025 Patient encounter procedure 04/04/2025 4:40 PM EDT Office Visit Family Medicine [place] [address] [place] [id number] Bobby Grady MD [address] [place], [place] [id number] 6 month follow up Family Medicine [place] Comment on above: 6 month follow up Start: 04-04-2025 Annual PCP Team Chronic Disease Visit Annual PCP Team Chronic Disease Visit [facility] Start: 04-04-2025 Anxiety Screening Anxiety Screening [facility] Comment on above: Postponed from 1971 (Declined at t his time) Start: 04-04-2025 Covid-19 Vaccine ( season) Covid-19 Vaccine ( season) [facility] Comment on above: Postponed from 04/24/2023 (Declined at t his time) Start: 04-04-2025 Covid-19 Vaccine ( season) Covid-19 Vaccine ( season) [facility] Start: 04-04-2025 Diabetic foot examination Diabetic Foot Exam [facility] Start: 04-04-2025 Hemoglobin A1c measurement HbA1C [facility] Start: 04-04-2025 RSV Vaccine (1 - 1-dose 60+ series) RSV Vaccine (1 - 1-dose 60+ series) [facility] Comment on above: Postponed from 2013 (Declined at t his time) Start: 04-04-2025 RSV Vaccine (1 - Risk 60-74 years 1-dose series) RSV Vaccine (1 - Risk 60-74 years 1-dose series) [facility] Comment on above: Postponed from 2013 (Declined at t his time) Start: 03-30-2025 Hepatitis B surface antibody level LDL Cholesterol [facility] Start: 03-17-2025 End: 06-16-2025 Ferritin [Mass/volume] in Serum or Plasma FERRITIN Lab Routine Restless legs syndrome Expected: 03/17/2025, Expires: 06/16/2025 [facility] Comment on above: Expected: 03/17/2025, Expires: Start: 03-17-2025 End: 06-16-2025 Iron and Iron binding capacity panel - Serum or Plasma IRON AND TIBC Lab Routine Restless legs syndrome Expected: 03/17/2025, Expires: 06/16/2025 [facility] Comment on above: Expected: 03/17/2025, Expires: Start: 03-10-2025 End: 03-10-2025 Patient encounter procedure 03/10/2025 1:30 PM EDT Office Visit Neurology [address] [place] [address] Reji Mayorga MD [address] [place] [address] Other symptoms and signs involving the nervous system [R29.818]; Visual hallucination [R44.1]; Sleep disorder [G47.9] Neurology Comment on above: Other symptoms and signs involving the n ervous system [R29.818]; Visual hallucination [R44.1]; Sleep disorder [G47.9] Start: 03-06-2025 End: 03-06-2025 Patient encounter procedure 03/06/2025 1:30 PM EDT Appointment Radiology [address] [place] [address] Other symptoms and signs involving the nervous system [R29.818]; Visual hallucination [R44.1]; Malignant neoplasm of colon, unspecified part of colon (HCC) [C18.9] Radiology Comment on above: Other symptoms and signs involving the n ervous system [R29.818]; Visual hallucination [R44.1]; Malignant neoplasm of colon, unspecified part of colon (HCC) [C18.9] Start: 03-01-2025 End: 05-31-2025 Cobalamin (Vitamin B12) [Mass/volume] in Serum or Plasma [facility] Comment on above: Expected: 03/01/2025, Expires: Start: 03-01-2025 End: 05-31-2025 Folate [Mass/volume] in Serum or Plasma [facility] Comment on above: Expected: 03/01/2025, Expires: Start: 03-01-2025 End: 05-31-2025 Hemoglobin A1c in Blood [facility] Comment on above: Expected: 03/01/2025, Expires: Start: 03-01-2025 End: 05-31-2025 SYPHILIS TREPONEMAL W/REFLEX [facility] Comment on above: Expected: 03/01/2025, Expires: Start: 03-01-2025 End: 05-31-2025 Thyrotropin [Units/volume] in Serum or Plasma [facility] Comment on above: Expected: 03/01/2025, Expires: Start: 03-01-2025 End: 05-31-2025 VITAMIN B1 (THIAMINE), WHOLE BLOOD [facility] Comment on above: Expected: 03/01/2025, Expires: Start: 02-21-2025 End: 02-21-2025 Patient encounter procedure 02/21/2025 11:00 AM EDT Appointment Ambulatory Surgery [address] [place] [address] Kiersten Diehl MD [address] [place] [id number] Ambulatory Surgery Start: 02-10-2025 Evaluation of diagnostic study results [facility] Start: 01-30-2025 End: 01-30-2025 Patient encounter procedure 01/30/2025 1:30 PM EDT Appointment Mammogram [address] [place] [address] Mammogram Start: 01-24-2025 End: 01-24-2025 Patient encounter procedure 01/24/2025 1:00 PM EDT Office Visit Urology [address] [place] [address] Dimitris Robles APRN.MIGRATORY GAME BIRD BIOLOGIST [address] [place] [address] 4 week follow up Urology Comment on above: 4 week follow up Start: 12-22-2024 End: 12-22-2024 Admission to same day surgery center 12/22/2024 1:00 PM EDT - 12/22/2024 1:52 PM EDT Surgery MR INTERVENTIONAL RADIOLOGY [address] [place] [address] [place] [address] [address] [place], [place] [id number] Nephrostgram - REMOVAL TUBE NEPHROSTOMY MR [facility]IOLOGY Comment on above: Nephrostgram - REMOVAL TUBE NEPHROSTOMY Start: 12-22-2024 End: 12-22-2024 Rmvl nfros tube req fluoro guidance REMOVAL TUBE NEPHROSTOMY Ureteral stone 12/22/2024 1:00 PM EDT MR IR Start: 12-22-2024 Subsequent hospital visit by physician 12/22/2024 1:00 PM EDT Hospital Encounter MR [facility] RADIOLOGY [address] [place] [address] [place] [address] [place] [address] Ureteral stone [N20.1] MR [facility]IOLOG[facility] Comment on above: Ureteral stone [N20.1] Start: 12-19-2024 End: 12-19-2024 Patient encounter procedure 12/19/2024 2:00 PM EDT Office Visit Family Medicine [place] [address] [place] [id number] Bobby Grady MD [address] [place] [phone] 6 week follow up [facility] Comment on above: 6 week follow up Start: 12-12-2024 End: 12-12-2024 Admission to same day surgery center [facility] Comment on above: CYSTOSCOPY, RETROPYELOGRAM Start: 12-12-2024 End: 12-12-2024 Cysto bladder w/ureteral catheterization MR OR Start: 12-12-2024 End: 12-12-2024 Cysto w/insert ureteral stent MR OR Start: 12-12-2024 End: 12-12-2024 Cysto w/ureteroscopy w/lithotripsy MR OR Start: 12-12-2024 Subsequent hospital visit by physician [facility] Comment on above: Ureteral stone [N20.1] Start: 12-12-2024 End: 12-12-2024 Admission to same day surgery center 12/12/2024 8:40 AM EDT - 12/12/2024 10:00 AM EDT Surgery [facility] [address] [place] [address] [place] [address] Jada Osborn MD [address] [facility] [place] [address] CYSTOSCOPY, RETROPYELOGRAM [facility] Comment on above: CYSTOSCOPY, RETROPYELOGRAM Start: 12-12-2024 End: 12-12-2024 Cysto bladder w/ureteral catheterization CYSTOSCOPY, RETROPYELOGRAM Ureteral stone 12/12/2024 8:40 AM EDT MR OR Start: 12-12-2024 End: 12-12-2024 Cysto w/insert ureteral stent INSERTION STENT URETERAL Ureteral stone 12/12/2024 8:40 AM EDT MR OR Start: 12-12-2024 End: 12-12-2024 Cysto w/ureteroscopy w/lithotripsy [facility]ASER CYSTOURETHROSCOPY W/ URETEROSCOPY AND/OR PYELOSCOPY W/ LITHOTRIPSY HOLMIUM Ureteral stone 12/12/2024 8:40 AM EDT MR OR Start: 12-12-2024 Subsequent hospital visit by physician 12/12/2024 8:40 AM EDT Hospital Encounter [facility] [address] [place] [address] [place] [address] Jada Osborn MD [address] [facility] [place] [address] Ureteral stone [N20.1] [facility] Comment on above: Ureteral stone [N20.1] Start: 12-05-2024 Patient referral [facility] Work Phone: Start: 11-29-2024 End: 11-29-2024 Patient encounter procedure Gastroenterology [facility] Comment on above: Comment: Hx of hemicolectomy. Hx of hard time passing scope. Start: 11-18-2024 End: 02-17-2025 Urinalysis complete panel - Urine URINALYSIS (WITH MICROSCOPIC) WITH CULTURE IF INDICATED Lab Routine Dysuria Expected: 11/18/2024, Expires: 02/17/2025 [facility] Work Phone: Comment on above: Expected: 11/18/2024, Expires: Start: 11-07-2024 End: 11-07-2024 Patient encounter procedure 11/07/2024 3:20 PM EDT Office Visit [facility] [place] [address] [place], [place] [phone] Bobby Gardy MD [address] [place] [address] [facility] f/u-discharged 10/31/24 [facility] [place] Comment on above: [facility] f/u-discharged 5 Start: 11-05-2024 End: 02-04-2025 Basic metabolic 2000 panel - Serum or Plasma BASIC METABOLIC PANEL Lab Routine Right ureteral calculus Expected: 11/05/2024 (Approximate), Expires: 02/04/2025 [facility] Comment on above: Expected: 11/05/2024 (Approximate), Expi res: 02/04/2025 Start: 11-05-2024 End: 02-04-2025 CBC panel - Blood by Automated count COMPLETE BLOOD COUNT Lab Routine Right ureteral calculus Expected: 11/05/2024 (Approximate), Expires: 02/04/2025 [facility] Work Phone: Comment on above: Expected: 11/05/2024 (Approximate), Expi res: 02/04/2025 Start: 11-05-2024 End: 11-04-2025 ECG COMPLETE ECG COMPLETE ECG Routine Right ureteral calculus Expected: 11/05/2024 (Approximate), Expires: 11/04/2025 [facility] Comment on above: Expected: 11/05/2024 (Approximate), Expi res: 11/04/2025 Start: 11-05-2024 End: 02-04-2025 Urinalysis complete panel - Urine URINALYSIS (WITH MICROSCOPIC) WITH CULTURE IF INDICATED Lab Routine Right ureteral calculus Expected: 11/05/2024 (Approximate), Expires: 02/04/2025 [facility] Comment on above: Expected: 11/05/2024 (Approximate), Expi res: 02/04/2025 Start: 11-02-2024 Annual PCP Team Chronic Disease Visit Annual PCP Team Chronic Disease Visit [facility] Start: 10-28-2024 End: 10-28-2024 Patient encounter procedure Mammogram Comment on above: Dx: Encounter for screening mammogram fo r breast cancer [Z12.31] Dx: Mixed hyperlipid emia [E78.2]; Lightheadedness [R42] Start: 10-23-2024 [facility] Start: 10-14-2024 Screening for malignant neoplasm of breast Mammogram Screening [facility] Start: 10-05-2024 Annual PCP Team Chronic Disease Visit Annual PCP Team Chronic Disease Visit [facility] Start: 10-05-2024 End: 01-04-2025 Comprehensive metabolic 2000 panel - Serum or Plasma COMPREHENSIVE METABOLIC PANEL Lab Routine Mixed hyperlipidemia Expected: 10/05/2024, Expires: 01/04/2025 [facility] Comment on above: Expected: 10/05/2024, Expires: Start: 10-05-2024 End: 01-04-2025 Hemoglobin A1c in Blood HEMOGLOBIN A1C Lab Routine Type 2 diabetes mellitus without complication, without long-term current use of insulin (HCC) Expected: 10/05/2024, Expires: 01/04/2025 [facility] Comment on above: Expected: 10/05/2024, Expires: Start: 10-05-2024 End: 01-04-2025 Lipid 1996 panel - Serum or Plasma LIPID PANEL BASIC Lab Routine Mixed hyperlipidemia Expected: 10/05/2024, Expires: 01/04/2025 [facility] Comment on above: Expected: 10/05/2024, Expires: Start: 10-05-2024 End: 04-04-2025 Microalbumin/Creatinine [Mass Ratio] in Urine ALBUMIN/CREATININE RATIO, URINE Lab Routine Type 2 diabetes mellitus without complication, without long-term current use of insulin (HCC) Expected: 10/05/2024, Expires: 04/04/2025 [facility] Work Phone: Comment on above: Expected: 10/05/2024, Expires: Start: 10-05-2024 End: 10-05-2024 ambulatory 10/05/2024 1:30 PM EST Results Only [place] [facility] Draw Station [address] [place] [address] [place] [facility] Draw Station Start: 10-05-2024 End: 10-05-2024 Patient encounter procedure Family Medicine [place] Comment on above: 6 month follow up Annual Wellness - 6 month follow up Start: 09-30-2024 Hemoglobin A1c measurement HbA1C [facility] Start: 08-24-2024 Advance Directive Discussion Advance Directive Discussion [facility] Start: 08-24-2024 Glaucoma screening Dilated Retinal Exam [facility] Comment on above: Postponed from 04/17/2023 (Currently Velia eduled) Start: 08-24-2024 Medicare Advantage Annual Wellness Visit Medicare Advantage Annual Wellness Visit [facility] Start: 05-19-2024 End: 05-19-2024 Patient encounter procedure 05/19/2024 1:30 PM EDT Office Visit OB/Gynecology [address] [place] [address] Jo Ann Rubio APRN.MIGRATORY GAME BIRD BIOLOGIST [address] [place] [address] Endometrial cancer (HCC) [C54.1]; History of cervical cancer [Z85.41] OB/Gynecology Comment on above: Endometrial cancer (HCC) [C54.1]; Histor y of cervical cancer [Z85.41] Start: 04-24-2024 Covid-19 Vaccine ( season) Covid-19 Vaccine ( season) [facility] Start: 04-24-2024 Influenza vaccination Influenza Vaccine (#1) [facility] Start: 04-04-2024 End: 07-04-2024 CBC W Auto Differential panel - Blood CBC + DIFF Lab Routine Type 2 diabetes mellitus without complication, without long-term current use of insulin (HCC) Expected: 04/04/2024, Expires: 07/04/2024 [facility] Work Phone: Comment on above: Expected: 04/04/2024, Expires: 4 Start: 04-04-2024 End: 07-04-2024 Comprehensive metabolic 2000 panel - Serum or Plasma COMP METABOLIC PANEL Lab Routine Type 2 diabetes mellitus without complication, without long-term current use of insulin (HCC) Expected: 04/04/2024, Expires: 07/04/2024 [facility] Work Phone: Comment on above: Expected: 04/04/2024, Expires: 4 Start: 04-04-2024 End: 07-04-2024 Hemoglobin A1c in Blood HGB A1C Lab Routine Type 2 diabetes mellitus without complication, without long-term current use of insulin (HCC) Expected: 04/04/2024, Expires: 07/04/2024 [facility] Work Phone: Comment on above: Expected: 04/04/2024, Expires: 4 Start: 04-04-2024 End: 07-04-2024 Lipid 1996 panel - Serum or Plasma LIPID PANEL BASIC Lab Routine Type 2 diabetes mellitus without complication, without long-term current use of insulin (HCC) Expected: 04/04/2024, Expires: 07/04/2024 [facility] Work Phone: Comment on above: Expected: 04/04/2024, Expires: 4 Start: 04-04-2024 End: 04-04-2024 Patient encounter procedure Family Medicine [place] Comment on above: 6 month follow up Annual Wellness - 6 month follow up Start: 04-04-2024 End: 04-04-2024 ambulatory 04/04/2024 1:00 PM EDT Results Only [place] [facility] Draw Station [address] [facility] [address] [place] [address] [place] [facility] Draw Station Start: 04-02-2024 3 comp foot exam completed DIABETIC FOOT EXAM [facility] Start: 04-02-2024 ANNUAL PCP TEAM CHRONIC DISEASE VISIT ANNUAL PCP TEAM CHRONIC DISEASE VISIT [facility] Start: 04-02-2024 Diabetic foot examination Diabetic Foot Exam [facility] Start: 04-01-2024 Hemoglobin A1c measurement HbA1C [facility] Start: 04-01-2024 Hepatitis B surface antibody level LDL CHOLESTEROL [facility] Start: 11-16-2023 Screening for malignant neoplasm of colon Colorectal Cancer Screening [facility] Start: 10-05-2023 End: 12-05-2023 25-hydroxyvitamin D3 [Mass/volume] in Serum or Plasma VITAMIN D 25 HYDROXY Lab Routine Vitamin D deficiency Expected: 10/05/2023, Expires: 12/05/2023 [facility] Work Phone: Comment on above: Expected: 10/05/2023, Expires: Start: 10-05-2023 End: 01-04-2024 ALBUMIN/CREAT RATIO RND UR ALBUMIN/CREAT RATIO RND UR Lab Routine Type 2 diabetes mellitus without complication, without long-term current use of insulin (HCC) Expected: 10/05/2023, Expires: 01/04/2024 [facility] Work Phone: Comment on above: Expected: 10/05/2023, Expires: 4 Start: 10-05-2023 End: 01-04-2024 Bacteria identified in Urine by Culture URINE CULTURE Microbiology Routine Neurogenic bladder Acute midline low back pain without sciatica Expected: 10/05/2023, Expires: 01/04/2024 [facility] Work Phone: Comment on above: Expected: 10/05/2023, Expires: 4 Start: 10-05-2023 End: 01-04-2024 Urinalysis complete panel - Urine URINALYSIS, WITH MICROSCOPIC Lab Routine Neurogenic bladder Acute midline low back pain without sciatica Expected: 10/05/2023, Expires: 01/04/2024 [facility] Work Phone: Comment on above: Expected: 10/05/2023, Expires: Start: 10-03-2023 End: 12-03-2023 Hemoglobin A1c in Blood HGB A1C Lab Routine Type 2 diabetes mellitus without complication, without long-term current use of insulin (HCC) Diabetic polyneuropathy associated with type 2 diabetes mellitus (HCC) Albuminuria Expected: 10/03/2023, Expires: 12/03/2023 [facility] Work Phone: Comment on above: Expected: 10/03/2023, Expires: Start: 10-02-2023 ANNUAL PCP TEAM CHRONIC DISEASE VISIT ANNUAL PCP TEAM CHRONIC DISEASE VISIT [facility] Start: 10-02-2023 Hemoglobin A1c/Hemoglobin.total in Blood HBA1C [facility] Start: 10-02-2023 Mammography [facility] Start: 10-02-2023 Screening for malignant neoplasm of breast Mammogram Screening [facility] Start: 09-30-2023 Hepatitis B surface antibody level LDL CHOLESTEROL [facility] Start: 08-24-2023 Advance Directive Discussion Advance Directive Discussion [facility] Start: 08-19-2023 ANNUAL PCP TEAM CHRONIC DISEASE VISIT ANNUAL PCP TEAM CHRONIC DISEASE VISIT [facility] Start: 04-24-2023 Covid-19 Vaccine ( season) Covid-19 Vaccine () [facility] Start: 04-24-2023 Influenza vaccination [facility] Start: 04-17-2023 Glaucoma screening Dilated Retinal Exam [facility] Start: 04-17-2023 Hepatitis C antibody, confirmatory test DILATED RETINAL EXAM [facility] Start: 04-11-2023 Colonoscopy COLONOSCOPY [facility] Start: 04-11-2023 COLORECTAL CANCER SCREENING COLORECTAL CANCER SCREENING [facility] Start: 04-11-2023 Screening for malignant neoplasm of colon [facility] Start: 04-02-2023 End: 06-02-2023 CBC W Auto Differential panel - Blood CBC + DIFF Lab Routine Type 2 diabetes mellitus without complication, without long-term current use of insulin (HCC) Expected: 04/02/2023, Expires: 06/02/2023 [facility] Work Phone: Comment on above: Expected: 04/02/2023, Expires: 3 Start: 04-02-2023 End: 06-02-2023 Comprehensive metabolic 2000 panel - Serum or Plasma COMP METABOLIC PANEL Lab Routine Mixed hyperlipidemia Hypertriglyceridemia Type 2 diabetes mellitus without complication, without long-term current use of insulin (HCC) Expected: 04/02/2023, Expires: 06/02/2023 [facility] Work Phone: Comment on above: Expected: 04/02/2023, Expires: 3 Start: 04-02-2023 End: 06-02-2023 Lipid 1996 panel - Serum or Plasma LIPID PANEL BASIC Lab Routine Mixed hyperlipidemia Hypertriglyceridemia Type 2 diabetes mellitus without complication, without long-term current use of insulin (HCC) Expected: 04/02/2023, Expires: 06/02/2023 [facility] Work Phone: Comment on above: Expected: 04/02/2023, Expires: 3 Start: 04-02-2023 End: 06-02-2023 Thyrotropin [Units/volume] in Serum or Plasma TSH BLD Lab Routine Hypothyroidism, unspecified type Expected: 04/02/2023, Expires: 06/02/2023 [facility] Work Phone: Comment on above: Expected: 04/02/2023, Expires: 3 Start: 03-31-2023 ANNUAL PCP TEAM CHRONIC DISEASE VISIT ANNUAL PCP TEAM CHRONIC DISEASE VISIT [facility] Start: 03-30-2023 End: 05-30-2023 ALBUMIN/CREAT RATIO RND UR ALBUMIN/CREAT RATIO RND UR Lab Routine Diabetic polyneuropathy associated with type 2 diabetes mellitus (HCC) Expected: 03/30/2023, Expires: 05/30/2023 [facility] Work Phone: Comment on above: Expected: 03/30/2023, Expires: 3 Start: 03-30-2023 End: 05-30-2023 CBC W Auto Differential panel - Blood CBC + DIFF Lab Routine Diabetic polyneuropathy associated with type 2 diabetes mellitus (HCC) Mixed hyperlipidemia Hypothyroidism, unspecified type Expected: 03/30/2023, Expires: 05/30/2023 [facility] Work Phone: Comment on above: Expected: 03/30/2023, Expires: Start: 03-30-2023 End: 05-30-2023 Comprehensive metabolic 2000 panel - Serum or Plasma COMP METABOLIC PANEL Lab Routine Diabetic polyneuropathy associated with type 2 diabetes mellitus (HCC) Mixed hyperlipidemia Hypothyroidism, unspecified type Expected: 03/30/2023, Expires: 05/30/2023 [facility] Work Phone: Comment on above: Expected: 03/30/2023, Expires: Start: 03-30-2023 End: 05-30-2023 Hemoglobin A1c in Blood HGB A1C Lab Routine Diabetic polyneuropathy associated with type 2 diabetes mellitus (HCC) Mixed hyperlipidemia Hypothyroidism, unspecified type Expected: 03/30/2023, Expires: 05/30/2023 [facility] Work Phone: Comment on above: Expected: 03/30/2023, Expires: 3 Start: 03-30-2023 Hemoglobin A1c/Hemoglobin.total in Blood HBA1C [facility] Start: 03-30-2023 End: 05-30-2023 Lipid 1996 panel - Serum or Plasma LIPID PANEL BASIC Lab Routine Diabetic polyneuropathy associated with type 2 diabetes mellitus (HCC) Mixed hyperlipidemia Hypothyroidism, unspecified type Expected: 03/30/2023, Expires: 05/30/2023 [facility] Work Phone: Comment on above: Expected: 03/30/2023, Expires: 3 Start: 03-30-2023 End: 05-30-2023 Thyrotropin [Units/volume] in Serum or Plasma TSH BLD Lab Routine Diabetic polyneuropathy associated with type 2 diabetes mellitus (HCC) Mixed hyperlipidemia Hypothyroidism, unspecified type Expected: 03/30/2023, Expires: 05/30/2023 [facility] Work Phone: Comment on above: Expected: 03/30/2023, Expires: 3 Start: 03-27-2023 Hepatitis B surface antibody level LDL CHOLESTEROL [facility] Start: 01-30-2023 PAP TESTING PAP TESTING [facility] Start: 01-30-2023 Screening for malignant neoplasm of cervix Pap Testing [facility] Start: 09-27-2022 Hemoglobin A1c/Hemoglobin.total in Blood HBA1C [facility] Start: 09-23-2022 3 comp foot exam completed DIABETIC FOOT EXAM [facility] Start: 09-23-2022 ANNUAL PCP TEAM CHRONIC DISEASE VISIT ANNUAL PCP TEAM CHRONIC DISEASE VISIT [facility] Start: 08-24-2022 ADVANCE DIRECTIVE DISCUSSION ADVANCE DIRECTIVE DISCUSSION [facility] Start: 08-14-2022 Mammography MAMMOGRAM [facility] Start: 08-01-2022 Patient discharge [facility] Start: 07-31-2022 COVID-19 VACCINE (4 - Booster for Pfizer series) COVID-19 VACCINE (4 - Booster for Pfizer series) [facility] Start: 07-30-2022 Referral to occupational therapist [facility] Start: 07-30-2022 Referral to service [facility] Start: 07-30-2022 [facility] Work Phone: Start: 07-29-[address] [facility] Start: 07-29-2022 Following clinical pathway protocol [facility] Start: 07-29-2022 Notification of physician [facility] Start: 07-29-2022 [facility] Start: 07-29-2022 Assessment of risk of venous thromboembolism [facility] Start: 07-29-[address] [facility] Start: 07-29-2022 Incentive spirometry [facility] Start: 07-29-2022 Insertion of catheter into peripheral vein [facility] Start: 07-29-2022 Measuring intake and output [facility] Start: 07-29-2022 Providing care according to standard [facility] Start: 07-29-2022 Provision of activity privileges [facility] Start: 07-29-2022 [facility] Start: 07-29-2022 Admission procedure [facility] Start: 06-20-2022 Hepatitis C antibody, confirmatory test DILATED RETINAL EXAM [facility] Start: 06-17-2022 Hepatitis B surface antibody level LDL CHOLESTEROL [facility] Start: 05-26-2022 COVID-19 VACCINE (4 - Booster for Pfizer series) COVID-19 VACCINE (4 - Booster for Pfizer series) [facility] Start: 05-26-2022 COVID-19 VACCINE (4 - Pfizer series) COVID-19 VACCINE (4 - Pfizer series) [facility] Start: 04-24-2022 Influenza vaccination INFLUENZA (#1) [facility] Start: 03-27-2022 End: 05-27-2022 Lipid 1996 panel - Serum or Plasma [facility] Work Phone: Comment on above: Expected: 03/27/2022, Expires: 2 Start: 03-27-2022 End: 05-27-2022 Thyrotropin [Units/volume] in Serum or Plasma [facility] Work Phone: Comment on above: Expected: 03/27/2022, Expires: 2 Start: 03-19-2022 Hemoglobin A1c/Hemoglobin.total in Blood HBA1C [facility] Start: 12-24-2021 PAP TESTING PAP TESTING [facility] Start: 11-26-2021 COVID-19 VACCINE (3 - Booster for Pfizer series) COVID-19 VACCINE (3 - Booster for Pfizer series) [facility] Start: 08-24-2021 ADVANCE DIRECTIVE DISCUSSION ADVANCE DIRECTIVE DISCUSSION [facility] Start: 04-11-2021 Screening for malignant neoplasm of colon Colonoscopy [facility] Start: 05-12-2018 FECAL OCCULT BLOOD FECAL OCCULT BLOOD [facility] Start: 05-12-2018 Screening for malignant neoplasm of colon Fecal Occult Blood [facility] Start: 2013 RSV Vaccine (1 - 1-dose 60+ series) RSV Vaccine (1 - 1-dose 60+ series) [facility] Start: 2013 RSV Vaccine (1 - Risk 60-74 years 1-dose series) RSV Vaccine (1 - Risk 60-74 years 1-dose series) [facility] Start: 1998 COLOGUARD (FIT-DNA) [facility] Start: [address] COLONOGRAPHY [facility] Start: 1998 Screening for malignant neoplasm of colon [facility] Start: 1998 SIGMOIDOSCOPY SIGMOIDOSCOPY [facility] Start: 1971 Anxiety Screening Anxiety Screening [facility] Start: 1971 BP Controlled (<130/80) BP Controlled (<130/80) [facility] in [place] aminotransferase [Enzymatic activity/volume] in Serum or Plasma [facility] Work Phone: Albumin [Mass/volume ] in Serum or Plasma [facility] Work Phone: Alkaline phosphatase [Enzymatic activity/volume] in Serum or Plasma [facility] Work Phone: Anion gap measurement [facility] Work Phone: Aspartate aminotransferase [Enzymatic activity/volume] in Serum or Plasma [facility] Work Phone: Bilirubin, total measurement [facility] Work Phone: BUN/Creatinine ratio [facility] Work Phone: Calcium [Mass/volume ] in Serum or Plasma [facility] Work Phone: Carbon dioxide, tota l [Moles/volume] in Serum or Plasma [facility] Work Phone: Cardiac event recording [facility] Chloride [Moles/volu me] in Serum or Plasma [facility] Work Phone: COLOGUARD COLOGUARD Lab Ro joceline Screening for colon cancer Ordered: 10/05/2023 [facility] Work Phone: Comment on above: Ordered: 10/05/2023 End: 02-05-2022 COLONOSCOPY DIAGNOSTIC COLONOSCOPY DIAGNOSTIC Endoscopy Routine Change in bowel habits Hx of colon cancer, stage I 1 Occurrences starting 02/05/2022 until 02/05/2022 [facility] Work Phone: Comment on above: 1 Occurrences starting 02/05/2022 until 02/05/2022 Creatinine [Moles/volume] in Serum or Plasma [facility] Work Phone: End: 06-18-2025 DBT Breast - bilateral screening ISAMAR SCREENING W [facility]RADO Radiology Routine Encounter for screening mammogram for breast cancer 1 Occurrences starting 05/19/2024 until 06/18/2025 [facility] Work Phone: Comment on above: 1 Occurrences starting 05/19/2024 until 06/18/2025 DBT Breast - bilater al screening ISAMAR SCREENING W [place] Radiology Routine Encounter for screening mammogram for breast cancer 01/30/2025 1:59 PM EDT [facility] Work Phone: Glucose [Mass/volume ] in Serum or Plasma [facility] Work Phone: Hematocrit [Volume Fraction] of Blood [facility] Work Phone: Hemoglobin [Mass/volume] in Blood [facility] Work Phone: Leukocytes [#/volume ] in Blood [facility] Work Phone: Mean corpuscular hemoglobin concentration determination [facility] Work Phone: Mean corpuscular hemoglobin determination [facility] Work Phone: Measurement of renal function [facility] Work Phone: End: 10-31-2024 MG Breast Screening ISAMAR SCREENING Radiology Routine Encounter for screening mammogram for breast cancer 1 Occurrences starting 10/05/2023 until 10/31/2024 [facility] Work Phone: Comment on above: 1 Occurrences starting 10/05/2023 until 10/31/2024 MG Breast Screening ISAMAR SCREENIN G Radiology Routine Encounter for screening mammogram for breast cancer 10/14/2023 2:23 PM EST [facility] Work Phone: End: 03-31-2026 MR Brain WO and W contrast IV MRI BRAIN WO/W IVCON Radiology Routine Other symptoms and signs involving the nervous system Visual hallucination Malignant neoplasm of colon, unspecified part of colon (HCC) 1 Occurrences starting 03/01/2025 until 03/31/2026 [facility] Work Phone: Comment on above: 1 Occurrences starting 03/01/2025 until 03/31/2026 Neutrophil count [facility] Work Phone: Neutrophil percent differential count [facility] Work Phone: NM Heart Views W str ess and W radionuclide IV [facility] NM Heart Views W str ess and W radionuclide IV [facility] PAP FLUID CERVICAL SCREENING PAP FLUID CERVICAL SCREENING Lab Routine History of cervical cancer Ordered: 01/30/2022 [facility] Work Phone: Comment on above: Ordered: 01/30/2022 PAP TEST PAP TEST Lab Rou tsering Endometrial cancer (HCC) History of cervical cancer Screening for vaginal cancer 05/19/2024 2:21 PM EDT [facility] Patient referral [facility] Work Phone: Platelets [#/volume] in Blood [facility] Work Phone: End: 03-17-2026 Polysomnogram POLYSOMNOGRAM (PSG) Procedures Routine Visual hallucination Unspecified sleep apnea Restless legs syndrome Type 2 diabetes mellitus without complication, unspecified whether halfway insulin use (HCC) BMI 40.0-44.9, adult ([facility]) 1 Occurrences starting 03/17/2025 until 03/17/2026 [facility] Work Phone: Comment on above: 1 Occurrences starting 03/17/2025 until 03/17/2026 Potassium [Moles/volume] in Serum or Plasma [facility] Work Phone: PT PLAN OF CARE CERTIFICATION PT PLAN OF CARE CERTIFICATION Procedures Routine Pain in joint of right hip Ordered: 10/16/2022 [facility] Work Phone: Comment on above: Ordered: 10/16/2022 Red blood cell count [facility] Work Phone: Red cell distributio n width determination [facility] Work Phone: RF Kidney and Ureter and Urinary bladder Views W contrast IV IR NEPHROSTOGRAM Radiology Routine Ureteral stone 1 Occurrences starting 12/12/2024 [facility] Work Phone: Comment on above: 1 Occurrences starting 12/12/2024 End: 01-23-2026 Screening colonoscopy COLONOSCOPY SCREENING Endoscopy Routine Personal history of colon cancer 1 Occurrences starting 01/23/2025 until 01/23/2026 [facility] Work Phone: Comment on above: 1 Occurrences starting 01/23/2025 until 01/23/2026 Sodium [Moles/volume ] in Serum or Plasma [facility] Work Phone: SURGICAL PATHOLOGY [facility] Work Phone: Comment on above: Release Upon Ordering for 1 Occurrences starting 02/05/2022 Tissue Pathology bio psy report [facility] Work Phone: Comment on above: Release Upon Ordering for 1 Occurrences starting 04/19/2025, 1 completed Total protein measurement [facility] Work Phone: Urea nitrogen [Mass/volume] in Serum or Plasma [facility] Work Phone: End: 10-05-2025 US Carotid arteries - bilateral US CAROTID ARTERIES [facility] Vascular Lab Routine Mixed hyperlipidemia Lightheadedness 1 Occurrences starting 10/05/2024 until 10/05/2025 [facility] Work Phone: Comment on above: 1 Occurrences starting 10/05/2024 until 10/05/2025 End: 01-11-2026 US Kidney - bilateral and Urinary bladder US KIDNEY/BLADDER Radiology Routine Ureteral stone 1 Occurrences starting 12/12/2024 until 01/11/2026 [facility] Comment on above: 1 Occurrences starting 12/12/2024 until 01/11/2026 US Kidney - bilatera l and Urinary bladder US KIDNEY/BLADDER Radiology Routine Right ureteral calculus 05/03/2025 1:46 PM EDT [facility] Work Phone: XR Abdomen Supine an d Upright XR ABDOMEN 1V SUPINE Radiology Routine Right ureteral calculus 05/03/2025 1:36 PM EDT [facility] Work Phone: [facility] Immunizations Immunization Date Immunization Notes Care Provider Connor miranda 10-05-2024 COVID-19 vaccine, ag e 12+ yr ([employer] [facility]) Ynes Cameron GOLF CLUB MANAGER.MIGRATORY GAME BIRD BIOLOGIST Work Phone: [facility] 10-05-2024 influenza, high dose seasonal, preservative-free Ynes Cameron GOLF CLUB MANAGER.MIGRATORY GAME BIRD BIOLOGIST Work Phone: [facility] 10-05-2024 influenza virus vacc ine, unspecified formulation Bobby Grady MD Work Phone: [facility] 10-05-2023 influenza (HD-IIV4) vaccine, age 65+ yr, high dose, quadrivalent, PF (FLUZONE HIGH-DOSE) KELI Yeboah PA-C Work Phone: [facility] 10-05-2023 influenza virus vacc ine, unspecified formulation Bobby Grady MD Work Phone: [facility] 03-31-2022 Covid Pfizer Bivalen t Booster Dr. Bobby Grady Work Phone: [facility] 03-31-2022 COVID-19 original vaccine, age 12+ yr, monovalent ([employer] [place] [employer]) Bobby Grady MD Work Phone: [facility] 03-24-2022 influenza, injectabl e, quadrivalent, preservative free Dr. Bobby Grady MD Work Phone: [facility] 03-24-2022 influenza, seasonal, injectable Dr. Bobby Grady Work Phone: [facility] 03-24-2022 influenza virus vacc ine, unspecified formulation KELI Yeboah PA-C Work Phone: [facility] 06-28-2021 Covid (Pfizer) Dr. Bobby mendoza Work Phone: [facility] 06-21-2021 pneumococcal polysaccharide vaccine, 23 valent Beni Robert MD Work Phone: [facility] 05-06-2021 Covid (Pfizer) Dr. Bobby mendoza Work Phone: [facility] 05-06-2021 influenza, high-dose , quadrivalent vaccine (FLUZONE HIGH DOSE QUADRIVALENT) Beni Robert MD Work Phone: [facility] 10-22-2020 zoster vaccine recombinant Beni Robert MD Work Phone: [facility] Work Phone: 06-28-2020 zoster vaccine recombinant Beni Robert MD Work Phone: [facility] Work Phone: 05-08-2020 influenza, high-dose , quadrivalent vaccine (FLUZONE HIGH DOSE QUADRIVALENT) Beni Robert MD Work Phone: [facility] 03-13-2020 tetanus toxoid, redu breezy diphtheria toxoid, and acellular pertussis vaccine, adsorbed Beni Robert MD Work Phone: [facility] 10-12-2019 influenza, high dose seasonal, preservative-free Beni Robert MD Work Phone: [facility] 10-18-2018 influenza, high dose seasonal, preservative-free Beni Robert MD Work Phone: [facility] Work Phone: 04-07-2018 pneumococcal conjuga te vaccine, 13 valent Beni Robert MD Work Phone: [facility] Work Phone: 05-04-2017 influenza, injectabl e, quadrivalent, contains preservative Beni Robert MD Work Phone: [facility] 08-26-2016 influenza, injectabl e, quadrivalent, contains preservative Beni Robert MD Work Phone: [facility] Work Phone: 03-19-2015 zoster vaccine, live Beni Robert MD Work Phone: [facility] 08-16-2014 influenza, seasonal, injectable Beni Robert MD Work Phone: [facility] 05-30-2011 influenza virus vacc ine, unspecified formulation Beni Robert MD Work Phone: [facility] 05-24-2010 influenza virus vacc ine, unspecified formulation Beni Robert MD Work Phone: [facility] Work Phone: 05-01-2010 tetanus toxoid, redu breezy diphtheria toxoid, and acellular pertussis vaccine, adsorbed Beni Robert MD Work Phone: [facility] 07-10-2009 influenza virus vacc ine, unspecified formulation Beni Robert MD Work Phone: [facility] Work Phone: 07-10-2009 novel influenza-H1N1 -09, all formulations Beni Robert MD Work Phone: [facility] Work Phone: 11-17-2007 pneumococcal polysaccharide vaccine, 23 valent Beni Robert MD Work Phone: [facility] Work Phone: 11-06-2000 hepatitis B vaccine, adult dosage Beni Robert MD Work Phone: [facility] Work Phone: 03-02-2000 hepatitis B vaccine, adult dosage Beni Robert MD Work Phone: [facility] Work Phone: 02-22-2000 diphtheria and tetan us toxoids, adsorbed for pediatric use Beni Robert MD Work Phone: [facility] Work Phone: 06-10-1999 tetanus and diphther ia toxoids, adsorbed, preservative free, for adult use (2 Lf of tetanus toxoid and 2 Lf of diphtheria toxoid) Beni Robert MD Work Phone: [facility] 05-31-1999 hepatitis B vaccine, adult dosage Beni Robert MD Work Phone: [facility] Work Phone: Payers Date Payer Category Payer Self-pay [id number] 2024 Private Health Insurance [id number] 2017 Medicare (Managed Care) ANTHEM M EDICARE ADVANTAGE HMO Member Subscriber Plan / Payer (Effective 2017-Present) Name: Aliyah Leach Relation to Subscriber: Self Name: Aliyah Leach Payer ID: [id number] (NAIC) Group ID: [id number] Type: HMO Address: [address] [place] [id number] 2017 Unknown ANTHEM BLUE CROS S AND BLUE SHIELD ANTHEM MEDIBLUE O [id number] 2017-Present [phone] [address] [place] [id number] [facility] [id number] 2017 Unknown [id number] 2017 Unknown 2011 Unknown [facility] [id number] Medicare MEDICARE PART A B [id number] Unknown ANTHEM SECONDARY [id number] Unknown [id number] Unknown [id number] Unknown [id number] Unknown [id number] Unknown [id number] Unknown [id number] Social History Date Type Detail Facility Start: 11-28-2024 End: 12-08-2024 Tobacco smoking status NHIS Never smoked tobacco [facility] Start: 09-23-2021 End: 10-05-2024 Alcohol intake Current drinker of alcohol (finding) [facility] Start: 06-15-2020 End: 08-12-2022 History SDOH Alcohol Frequency 2 [facility] Start: 06-15-2020 End: 08-12-2022 History SDOH Alcohol Std Drinks 1 [facility] Start: 11-29-2010 History SDOH Alcohol Comment rarely [facility] Start: 05-07-2020 End: 08-12-2022 History SDOH Social Connections Get Together 5 [facility] Start: 05-07-2020 End: 08-12-2022 History SDOH Social Connections Confucianist 3 [facility] Start: 1955 Sex Assigned At Female C [facility] Start: 07-01-2021 End: 02-05-2022 Exposure to SARS-CoV-2 (event) Not sure [facility] Start: 07-29-2022 End: 07-29-2022 Tobacco smoking status NHIS Unknown if ever smoked [facility] Start: 08-12-2022 History SDOH Social Connections Get Together 4 [facility] Start: 08-11-2022 End: 04-02-2023 History of Social function [facility] Start: 08-11-2022 End: 04-02-2023 Social connection and isolation panel [facility] Do you belong to any clubs or organizations such as rastafarian groups, unions, fraternal or athletic groups, or school groups? Yes [facility] Are you now , , , , never or living with a partner? [facility] How often to you hav e a drink containing alcohol? Monthly or less [facility] How many standard drinks containing alcohol do you have on a typical day? 1 or 2 [facility] How often do you hav e 6 or more drinks on 1 occasion? Never [facility] How hard is it for y ou to pay for the very basics like food, housing, medical care, and heating Somewhat hard [facility] Start: 07-25-2012 Adult Depression Screening Assessment 0 [facility] Do you feel stress - tense, restless, nervous, or anxious, or unable to sleep at night because your mind is troubled all the time - these days [OSQ] Only a little [facility] (I/We) worried wheth er (my/our) food would run out before (I/we) got money to buy more. Never true [facility] In the past 12 month s, was there a time when you were not able to pay the mortgage or rent on time? No [facility] Start: 05-02-2020 Gender identity Identifies as female gender (finding) [facility] Start: 05-02-2020 Sexual orientation Heterosexual (timmy edmond) [facility] How hard is it for y ou to pay for the very basics like food, housing, medical care, and heating Hard [facility] Do you feel stress - tense, restless, nervous, or anxious, or unable to sleep at night because your mind is troubled all the time - these days [OSQ] To some extent [facility] (I/We) worried wheth er (my/our) food would run out before (I/we) got money to buy more. Sometimes true [facility] Do you feel stress - tense, restless, nervous, or anxious, or unable to sleep at night because your mind is troubled all the time - these days [OSQ] Not at all [facility] Start: 12-08-2024 Tobacco use and exposure Smokeless tobacco non-user [facility] Start: 12-08-2024 End: 04-21-2025 Alcoholic beverage intake Ex-drinker (finding) [facility] NEGATED: Highlighted rowStart: NINF History of tobacco use Passive smoker [facility] Medical Equipment Procedure Code Equipment Code Equipment Original Text Equipment Identifier Dates Stent Uret 7fr 24cm W/O Gw Inl - [id number] Start: 05-09-2015 [id number], [id number] Start: 02-22-2014 Comment on above: Use as instructed Once daily. 250.40 Stent Uret 8fr 26cm Flexima - [id number] Start: 10-28-2024 Goals Date Patient Goal Desired Activity /State Personal health goal Personal health goal Functional Status Date Assessment Result Facility 10-31-2024 Are you deaf, or do you have serious difficulty hearing No 10/31/2024 4:08 PM Sandra Miranda RN No [facility] 10-31-2024 Are you blind, or do you have serious difficulty seeing, even when wearing glasses No 10/31/2024 4:08 PM Sandra Miranda, SANTO No [facility] 10-31-2024 Do you have serious difficulty walking or climbing stairs No 10/31/2024 4:08 PM Sandra Miranda RN No [facility] 10-31-2024 Do you have difficul ty dressing or bathing No 10/31/2024 4:08 PM Sandra Miranda RN No [facility] 10-31-2024 Because of a physica l, mental, or emotional condition, do you have difficulty doing errands alone such as visiting a physician's office or shopping No 10/31/2024 4:08 PM Sandra Miranda RN No [facility] 08-01-2022 Functional status Ambulates [facility] Work Phone: 05-10-2015 Are you deaf, or do you have serious difficulty hearing No 05/10/2015 12:55 PM Tavia Lyon RN No [facility] 05-10-2015 Are you blind, or do you have serious difficulty seeing, even when wearing glasses No 05/10/2015 12:55 PM Tavia Lyon RN No [facility] 05-10-2015 Do you have serious difficulty walking or climbing stairs No 05/10/2015 12:55 PM Tavia Lyon RN No [facility] 05-10-2015 Do you have difficul ty dressing or bathing No 05/10/2015 12:55 PM Tavia Lyon RN No [facility] 05-10-2015 Because of a physica l, mental, or emotional condition, do you have difficulty doing errands alone such as visiting a physician's office or shopping No 05/10/2015 12:55 PM Tavia Lyon RN No [facility] Mental Status Date Assessment Result Facility 10-31-2024 Because of a physica l, mental, or emotional condition, do you have serious difficulty concentrating, remembering, or making decisions No 10/31/2024 4:08 PM EDT Sandra Dyson, RN No [facility] 08-01-2022 [facility] 05-10-2015 Because of a physica l, mental, or emotional condition, do you have serious difficulty concentrating, remembering, or making decisions No 05/10/2015 12:55 PM EDT Tavia Gramajo, SANTO No [facility] Clinical Notes 03-08-2015 to 06-26-2025 Jennifer Ott, RT(R) - 05/03/2025 1:50 PM EDTKiersten Diehl MD - 04/19/2025 8:30 AM Kiersten oHffman MD - 04/19/2025 8:30 AM Kiersten Hoffman MD - 04/19/2025 8:30 AM EDT Note Date & Type Note Facility 06-26-2025 Note [facility] 06-23-2025 Note [facility] 06-23-2025 Note [facility] 06-23-2025 Note [facility] 06-20-2025 [facility] 06-09-2025 Note HNO ID: [id number] Author: SHITAL RAY APRN.MIGRATORY GAME BIRD BIOLOGIST Service: ? Author Type: Nurse Practitioner Type: Progress Notes Filed: 06/09/2025 15:41 Note Text: [facility] Follow up/ Established patient visit Recording using [employer] software for draft documentation of the visit was discussed with the patient/authorized procurement representative; all questions welcomed and answered. 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 She endorses additional symptoms concerning for underlying sleep disordered breathing. The differential diagnosis for visual hallucinations in the context of sleep disturbance were discussed at length. An additional discussion was held around the treatment options for obstructive sleep apnea. Patient verbalized understanding and expressed agreement to proceeding with in lab polysomnography with split-night protocol as well as parasomnia montage. In the context of the patient's additional concerns for symptoms of restless leg syndrome, iron studies were ordered for further evaluation. The patient is recommended to continue to follow-up with her other providers for pharmacotherapy optimization and care coordination. The patient is additionally encouraged to maintain adequate sleep hygiene in order to allow for adequate sleep opportunity as well as to monitor the frequency and timing of her visual hallucinations. The opportunity ask additional questions was provided to the patient. She voiced that expressed agreement to follow-up after sleep study for review results and refined on the plan of care. Kevon Gonzalez MD Sleep Medicine Fellow Staffed with: Dr. Rodriguez Recording using [employer] software for draft documentation of the visit was discussed with the patient/authorized procurement representative; all questions welcomed and answered. Patient/authorized procurement representative agreed to proceed This note was partially generated using [employer] voice recognition system, and there may be some incorrect words, spellings, and punctuation that were not noted in checking the note before saving. Attending Note I evaluated the patient and personally participated in the atkinson components. I agree with the fellow's findings and plan as documented. I have discussed the case with management of patient's care with the fellow and patient. Signature: Constance Rodriguez MD CURRENT VISIT: 06/09/2025 The patient is a 70-year-old female with new dx of moderate ROSE here to discuss PSG results. She presented initally due to sleep related visual hallucinations. PMH includes AFib, recurrent kidney stones, recent sepsis due to obstructing ureteral stone, diabetes, hypertension, hyperlipidemia, MDD, hypothyroidism, obesity, hx colon cancer, hx uterine cancer, diabetic neuropathy The patient reports sleep-related hallucinations that began approximately 1.5 years ago. She describes waking from deep sleep to see figures standing over her bed, including a recent vision of a man in a towel and a prior episode of an old man in a yellow satin bunny suit with fuzzy ears. These episodes previously caused her to awaken 6-8 times nightly, but have become less frequent and bothersome over time. She denies sleep paralysis and typically rolls over and returns to sleep after these episodes, though she has occasionally sat upright in bed. She underwent a sleep study that showed a sleep efficiency of 75%, sleep onset latency of 23 minutes, and no REM sleep. She slept supine throughout the study, which matches her usual sleep position. The study revealed an AHI of 19, consistent with moderate ROSE. She spent only 1 minute with oxygen saturation below 90%. She reports that her brother uses CPAP for sleep apnea. She has a history of AFib diagnosed 6 months ago. She also reports recurrent nephrolithiasis, with a 9 mm right renal stone 6 months ago and multiple left renal stones more recently. She is scheduled for stone removal on Jun 26. 05/22/25 PSG: AHI 19.5, no REM sleep, spent 0.5 min with O2<=88% Scoring for REM sleep without atonia was requested by the referring provider. No REM sleep was captured during the recording. Labs checked because of RLS Latest Reference Range AND Units 03/29/25 12:37 Ferritin 14.7 - 205.1 ng/mL 62.5 Iron 41 - 186 ug/dL 65 TIBC 232 - 386 ug/dL 313 Transferrin Saturation 15.0 - 57.0 % 20.8 PATIENT-ENTERED QUESTIONNAIRE SLEEP SCORES: 06/02/2025 Sleep Questions Reason for visit: Abnormal behaviors/movement (more content not included)... [facility] 06-07-2025 Progress note [facility] 06-05-2025 Note [facility]02[facility]25 [facility]-01[facility]25 [facility] 05-29[facility]2025 [facility]25 [facility] 05-26-2025 Note HNO ID: [id number] Author: CHECO OSORIO RN Service: Nursing Author Type: Registered Nurse Type: Nursing Progress Note Filed: 05/26/2025 16:46 Note Text: GLP1 instructions given at this time. 05-26-2025 Note HNO ID: [id number] Author: STEPHAN IYER RT(R) Service: ? Author Type: Bulb Planter Type: Progress Notes Filed: 05/26/2025 15:06 Note Text: Radiology Service Progress Note PATIENT NAME: Aliyah Leach DATE OF SERVICE: May 26, 2025 TIME: 3:06 PM PATIENT IDENTITY VERIFICATION COMPLETED USING TWO (2) IDENTIFIERS: Name and Date of confirmed by patient verbally. FALL SCREENING: Has the patient had 2 falls in the last year or 1 fall with injury or currently using an Ambulatory Assistive Device (Walker, Cane, Wheelchair, Crutches, etc.)? No PATIENT GENDER DATA: Assigned female at . status: : No status: NO. PATIENT RELEVANT IMPLANT DATA REVIEWED: Yes PATIENT PRESENTS WITH AN IMPLANTABLE OR ATTACHED SOCIAL WORKER HEALTH SERVICES: No RADIOLOGY DEPARTMENT: CT; Exam(s) Completed: Flank Study. Anesthesia: No PERIPHERAL IV DATA: Not applicable SIGNED BY: RT Choco(R) May 26, 2025 3:06 PM [facility] 05-23-2025 Note [facility] 05-23-2025 Note HNO ID: [id number] Author: ?, ?, ? Service: ? Author Type: ? Type: Progress Notes Filed: 05/23/2025 03:53 Note Text: Sleep Study Check-In Documentation Date: May 23, 2025 Name: Aliyah Leach Patient was accompanied by Self. Location: [place] Latex allergy: No Tape allergy: No Current medications were reviewed with the patient:Yes Sleep aid taken by patient for the sleep study: [place] of sleep aid: Not Applicable Procedure was explained to the patient and all questions were answered. PAP treatment discussed and shown to patient: Yes Knowledge Program (KP): KP was not completed in epic by patient and accepted Study type: Polysomnogram Adverse Event: No (If yes create a new abstract) Comments: Patient was advised to follow up with their ordering provider regarding test results Nicole Powell [facility] 05-03-2025 History of Present illness Narrative Radiology Service Progress Note PATIENT NAME: Aliyah Leach DATE OF SERVICE: May 03, 2025 TIME: 1:27 PM PATIENT IDENTITY VERIFICATION COMPLETED USING TWO (2) IDENTIFIERS: Name and Date of confirmed by patient verbally. FALL SCREENING: Has the patient had 2 falls in the last year or 1 fall with injury or currently using an Ambulatory Assistive Device (Walker, Cane, Wheelchair, Crutches, etc.)? No PATIENT GENDER DATA: Assigned female at . status: : No status: NO. PATIENT RELEVANT IMPLANT DATA REVIEWED: Yes PATIENT PRESENTS WITH AN IMPLANTABLE OR ATTACHED SOCIAL WORKER HEALTH SERVICES: No RADIOLOGY DEPARTMENT: General X-ray: Exam(s) Completed: Abdomen X-Ray: Abdomen PERIPHERAL IV DATA: Not applicable SIGNED BY: RT Joselo(Chacha) May 03, 2025 1:27 PM documented in this encounter [facility] 05-03-2025 Note HNO ID: [id number] Author: JENNIFER OTT RT(Chacha) Service: ? Author Type: Technologist Type: Progress Notes Filed: 05/03/2025 13:37 Note Text: Radiology Service Progress Note PATIENT NAME: Aliyah Leach DATE OF SERVICE: May 03, 2025 TIME: 1:27 PM PATIENT IDENTITY VERIFICATION COMPLETED USING TWO (2) IDENTIFIERS: Name and Date of confirmed by patient verbally. FALL SCREENING: Has the patient had 2 falls in the last year or 1 fall with injury or currently using an Ambulatory Assistive Device (Walker, Cane, Wheelchair, Crutches, etc.)? No PATIENT GENDER DATA: Assigned female at . status: : No status: NO. PATIENT RELEVANT IMPLANT DATA REVIEWED: Yes PATIENT PRESENTS WITH AN IMPLANTABLE OR ATTACHED SOCIAL WORKER HEALTH SERVICES: No RADIOLOGY DEPARTMENT: General X-ray: Exam(s) Completed: Abdomen X-Ray: Abdomen PERIPHERAL IV DATA: Not applicable SIGNED BY: RT Joselo(R) May 03, 2025 1:27 PM [facility] 04-19-2025 Attending History and physical note UPDATED HISTORY AND PHYSICAL EXAMINATION SERVICE DATE: 04/19/2025 SERVICE TIME: 8:21 Participation of a fellow, resident, medical student, or advanced practice provider student in performing the sensitive examination was discussed with the patient or authorized procurement representative. The patient or authorized procurement representative has agreed to proceed with the sensitive examination. PHYSICAL EXAM MUST BE COMPLETED ON ADMISSION The History and Physical (completed in the past 30 days) has been reviewed and the patient has been examined. The contents accurately reflect the patient's condition with the following additions or revisions since the H&P was completed. Examination indicates no changes. This H&P can be found in the Electronic Medical Record. SIGNATURE: Kiersten Diehl MD PATIENT NAME: Aliyah Leach DATE: April 19, 2025 TIME: 8:21 AM Source Note - Kiersten Diehl MD - 04/19/2025 8:30 AM EDT HISTORY AND PHYSICAL Aliyah Leach 1955 REFERRING PHYSICIAN: Jacque Reveles PA-C CHIEF COMPLAINT: No chief complaint on file. HPI: The patient is a 70 year old female here for colonoscopy. Last colonoscopy 2018 - hyperplastic polyp Fecal urgency after eating. PAST MEDICAL HISTORY Diagnosis Date Ambulates with cane Atrial fibrillation (HCC) 2023 Dr. Ring. Diagnosed when admitted for kidney stone. 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 Osborn. Has had kidney stones on right and left. 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, S/P EBRT and HDR brachytherapy Obesity, unspecified Pressure sore on buttocks 11/2024 Pt treating on own with A&D Psoriasis Radiation 2005 for Cervical Cancer PAST SURGICAL HISTORY Procedure Laterality Date ARTHRP KNE CONDYLE&PLATU MEDIAL&LAT COMPARTMENTS 2010 left knee ARTHRP KNE CONDYLE&PLATU MEDIAL&LAT COMPARTMENTS 01/01/2015 Right knee BIOPSY BREAST OPEN INCISIONAL Bx of breast, incisional CHOLECYSTECTOMY 1987 Open cholecystectomy COLECTOMY PARTIAL W/ANASTOMOSIS 1999 Hemicolectomy COLONOSCOPY 10/2018 COLONOSCOPY FLX DX W/COLLJ SPEC WHEN PFRMD Colonoscopy COLONOSCOPY FLX DX W/COLLJ SPEC WHEN PFRMD 09/09/2005 Colonoscopy COLONOSCOPY FLX DX W/COLLJ SPEC WHEN PFRMD 11/15/2008 Colonoscopy COLONOSCOPY FLX DX W/COLLJ SPEC WHEN PFRMD 02/11/12, 03/2015 Repeat in 3 years (03/2018) COLONOSCOPY SCREENING 02/05/2022 DILATION & CURETTAGE DX&/THER NONOBSTETRIC 05/29/2011 Dilation & curettage IR NEPHROSTOMY TUBE INSERT RIGHT Right 10/23/2024 IR [facility] PAST SURGICAL HISTORY OF Rt port placement REMV CATARACT EXTRACAP,INSERT LENS Left 10/2021 REPAIR FIRST ABDOMINAL WALL HERNIA 2000 Hernia repair, incisional TOT ABD HYST W/PARAORTIC & PELVIC LYMPH NODE MARK 06/19/2011 Exploratory laparotomy with extensive lysis of adhesions, total abdominal hysterectomy, bilateral salpingo- oophorectomy, cystoscopy, and omentectomy. Current Outpatient Medications Medication Sig levothyroxine (SYNTHROID) 112 mcg tablet Take 1 tablet by mouth once daily. magnesium oxide (MAG-OX) 400 mg (241.3 mg magnesium) tablet Take 1 tablet by mouth two times a day. pravastatin (PRAVACHOL) 40 mg tablet Take 1 tablet by mouth daily at bedtime. FLUoxetine (PROZAC) 40 mg capsule Take 1 capsule by mouth once daily. metFORMIN (GLUCOPHAGE) 1,000 mg tablet Take 1 tablet by mouth two times a day with meals. Incontinence Pad, Liner, Disp (POISE PADS) pads 1 pad five times a day. losartan (COZAAR) 25 mg tablet Take 1 tablet by mouth two times a day. CYANOCOBALAMIN/COBAMAMIDE (B12 SUBLINGUAL) Dissolve 1 tablet under the tongue once daily. Last dose 12/07/24 for OR 12/12/24 Cholecalciferol, Vitamin D3, 125 mcg (5,000 unit) cap Take 125 Units by mouth once daily. Last dose 12/07/24 for OR 12/12/24 blood sugar diagnostic (ACCU-CHEK ROBIN) test strip Use as instructed Blood-Glucose Meter (ACCU-CHEK ROBIN PLUS METER) misc 1 Each once daily. multivitamin ORAL tablet Take 1 tablet by mouth once daily. Last dose 12/07/24 for OR 12/12/24 dulaglutide (TRULICITY) 1.5 mg/0.5 mL pen injector Inject 1.5 mg subcutaneously one time a week. Inject once per week. Discard Pen After vit C,R-Wo-dtupl-lutein-zeaxan (PRESERVISION AREDS-2) 250-90-40-1 mg Take 1 capsule by mouth twice daily with meals. Lancets (ACCU-CHEK SOFTCLIX LANCETS) lancets Once daily. 250.40 Current Facility-Administered Medications Medication Dose Route Frequency lidocaine (PF) 10 mg/mL (1 %) 1-2 mg injection (XYLOCAINE) 0.1-0.2 mL INTRADERMAL PRN lactated ringers iv infusion 30 mL/hr INTRAVENOUS CONTINUOUS ALLERGIES: Detrol [Tolterodine Tartrate] and Penicillins PERSONAL HISTORY: SOCIAL HISTORY[1] FAMILY HISTORY: FAMILY HISTORY Problem Relation Age of Onset Diabetes Mother Genitourinary () Mother renal failure Cancer Father rectal cancer Hypertension Sister Diabetes Sister Cancer Sister lymphoma, leukemia Diabetes Brother Breast Cancer Paternal Aunt diagnosed in her late 50's still alive and well Thyroid Cancer Niece/Nephew other (? kidney cancer) Nephew REVIEW OF SYMPTOMS: Denies chest pain Denies shortness of breath Physical examination: Vital signs in chart, reviewed and noted by me General - WD/WN in no apparent distress, alert and oriented Head - Normocephalic. EOM intact with sclera clear. Mouth with mucus membranes moist. Neck - supple with no jugular venous distention noted. Trachea is midline. Lungs - normal breath sounds, normal respiratory motion, no adventitial sounds noted. Heart - normal heart sounds. Regular rate. Abdomen - soft and benign. Extremities - no pitting edema noted. Skin - Normal skin integrity. Neurological - non focal Psych - calm and appropriate Impression: surveillance colonoscopy for history of colon polyps, change in bowel habits - fecal urgency Discussion/Plan/Recommendations: I have discussed the above with the patient. I have offered colonoscopy , possible biopsies I have explained the procedure to the patient. I have counseled the patient as to the risks of the procedure, including but not limited to: infection, bleeding, injury to any intrabdominal organs such as liver/spleen, perforation of the GI tract, inability to complete the procedure, complications of anesthesia, etc. - the patient understands. The patient wishes to proceed. I have answered all questions to the patient s satisfaction and the patient has no further questions. Kiersten Diehl MD [1] Social History Tobacco Use Smoking status: Never Passive exposure: Never Smokeless tobacco: Never Vaping Use Vaping status: Never Used Substance Use Topics Alcohol use: Not Currently Drug use: No [facility] Work Phone: 04-19-2025 History and physical note HISTORY AND PHYSICAL Aliyah Leach 1955 REFERRING PHYSICIAN: Jacque Reveles PA-C CHIEF COMPLAINT: No chief complaint on file. HPI: The patient is a 70 year old female here for colonoscopy. Last colonoscopy 2019 - hyperplastic polyp Fecal urgency after eating. PAST MEDICAL HISTORY Diagnosis Date Ambulates with cane Atrial fibrillation (HCC) 2023 Dr. Ring. Diagnosed when admitted for kidney stone. 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 Osborn. Has had kidney stones on right and left. 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, S/P EBRT and HDR brachytherapy Obesity, unspecified Pressure sore on buttocks 11/2024 Pt treating on own with A&D Psoriasis Radiation 2005 for Cervical Cancer PAST SURGICAL HISTORY Procedure Laterality Date ARTHRP KNE CONDYLE&PLATU MEDIAL&LAT COMPARTMENTS 2010 left knee ARTHRP KNE CONDYLE&PLATU MEDIAL&LAT COMPARTMENTS 01/01/2015 Right knee BIOPSY BREAST OPEN INCISIONAL Bx of breast, incisional CHOLECYSTECTOMY 1987 Open cholecystectomy COLECTOMY PARTIAL W/ANASTOMOSIS 1999 Hemicolectomy COLONOSCOPY 10/2018 COLONOSCOPY FLX DX W/COLLJ SPEC WHEN PFRMD Colonoscopy COLONOSCOPY FLX DX W/COLLJ SPEC WHEN PFRMD 09/09/2005 Colonoscopy COLONOSCOPY FLX DX W/COLLJ SPEC WHEN PFRMD 11/15/2008 Colonoscopy COLONOSCOPY FLX DX W/COLLJ SPEC WHEN PFRMD 02/11/12, 03/2015 Repeat in 3 years (03/2018) COLONOSCOPY SCREENING 02/05/2022 DILATION & CURETTAGE DX&/THER NONOBSTETRIC 05/29/2011 Dilation & curettage IR NEPHROSTOMY TUBE INSERT RIGHT Right 10/23/2024 IR [facility] PAST SURGICAL HISTORY OF Rt port placement REMV CATARACT EXTRACAP,INSERT LENS Left 10/2021 REPAIR FIRST ABDOMINAL WALL HERNIA 2000 Hernia repair, incisional TOT ABD HYST W/PARAORTIC & PELVIC LYMPH NODE MARK 06/19/2011 Exploratory laparotomy with extensive lysis of adhesions, total abdominal hysterectomy, bilateral salpingo- oophorectomy, cystoscopy, and omentectomy. Current Outpatient Medications Medication Sig levothyroxine (SYNTHROID) 112 mcg tablet Take 1 tablet by mouth once daily. magnesium oxide (MAG-OX) 400 mg (241.3 mg magnesium) tablet Take 1 tablet by mouth two times a day. pravastatin (PRAVACHOL) 40 mg tablet Take 1 tablet by mouth daily at bedtime. FLUoxetine (PROZAC) 40 mg capsule Take 1 capsule by mouth once daily. metFORMIN (GLUCOPHAGE) 1,000 mg tablet Take 1 tablet by mouth two times a day with meals. Incontinence Pad, Liner, Disp (POISE PADS) pads 1 pad five times a day. losartan (COZAAR) 25 mg tablet Take 1 tablet by mouth two times a day. CYANOCOBALAMIN/COBAMAMIDE (B12 SUBLINGUAL) Dissolve 1 tablet under the tongue once daily. Last dose 12/07/24 for OR 12/12/24 Cholecalciferol, Vitamin D3, 125 mcg (5,000 unit) cap Take 125 Units by mouth once daily. Last dose 12/07/24 for OR 12/12/24 blood sugar diagnostic (ACCU-CHEK ROBIN) test strip Use as instructed Blood-Glucose Meter (ACCU-CHEK ROBIN PLUS METER) misc 1 Each once daily. multivitamin ORAL tablet Take 1 tablet by mouth once daily. Last dose 12/07/24 for OR 12/12/24 dulaglutide (TRULICITY) 1.5 mg/0.5 mL pen injector Inject 1.5 mg subcutaneously one time a week. Inject once per week. Discard Pen After vit C,S-Gw-shdfz-lutein-zeaxan (PRESERVISION AREDS-2) 250-90-40-1 mg Take 1 capsule by mouth twice daily with meals. Lancets (ACCU-CHEK SOFTCLIX LANCETS) lancets Once daily. 250.40 Current Facility-Administered Medications Medication Dose Route Frequency lidocaine (PF) 10 mg/mL (1 %) 1-2 mg injection (XYLOCAINE) 0.1-0.2 mL INTRADERMAL PRN lactated ringers iv infusion 30 mL/hr INTRAVENOUS CONTINUOUS ALLERGIES: Detrol [Tolterodine Tartrate] and Penicillins PERSONAL HISTORY: SOCIAL HISTORY[1] FAMILY HISTORY: FAMILY HISTORY Problem Relation Age of Onset Diabetes Mother Genitourinary () Mother renal failure Cancer Father rectal cancer Hypertension Sister Diabetes Sister Cancer Sister lymphoma, leukemia Diabetes Brother Breast Cancer Paternal Aunt diagnosed in her late 50's still alive and well Thyroid Cancer Niece/Nephew other (? kidney cancer) Nephew REVIEW OF SYMPTOMS: Denies chest pain Denies shortness of breath Physical examination: Vital signs in chart, reviewed and noted by me General - WD/WN in no apparent distress, alert and oriented Head - Normocephalic. EOM intact with sclera clear. Mouth with mucus membranes moist. Neck - supple with no jugular venous distention noted. Trachea is midline. Lungs - normal breath sounds, normal respiratory motion, no adventitial sounds noted. Heart - normal heart sounds. Regular rate. Abdomen - soft and benign. Extremities - no pitting edema noted. Skin - Normal skin integrity. Neurological - non focal Psych - calm and appropriate Impression: surveillance colonoscopy for history of colon polyps, change in bowel habits - fecal urgency Discussion/Plan/Recommendations: I have discussed the above with the patient. I have offered colonoscopy , possible biopsies I have explained the procedure to the patient. I have counseled the patient as to the risks of the procedure, including but not limited to: infection, bleeding, injury to any intrabdominal organs such as liver/spleen, perforation of the GI tract, inability to complete the procedure, complications of anesthesia, etc. - the patient understands. The patient wishes to proceed. I have answered all questions to the patient s satisfaction and the patient has no further questions. Kiersten Diehl MD [1] Social History Tobacco Use Smoking status: Never Passive exposure: Never Smokeless tobacco: Never Vaping Use Vaping status: Never Used Substance Use Topics Alcohol use: Not Currently Drug use: No [facility] 04-19-2025 History and physical note UPDATED HISTORY AND PHYSICAL EXAMINATION SERVICE DATE: 04/19/2025 SERVICE TIME: 8:21 Participation of a fellow, resident, medical student, or advanced practice provider student in performing the sensitive examination was discussed with the patient or authorized procurement representative. The patient or authorized procurement representative has agreed to proceed with the sensitive examination. PHYSICAL EXAM MUST BE COMPLETED ON ADMISSION The History and Physical (completed in the past 30 days) has been reviewed and the patient has been examined. The contents accurately reflect the patient's condition with the following additions or revisions since the H&P was completed. Examination indicates no changes. This H&P can be found in the Electronic Medical Record. SIGNATURE: Kiersten Diehl MD PATIENT NAME: Aliyah Leach DATE: April 19, 2025 TIME: 8:21 AM Source Note - Kiersten Diehl MD - 04/19/2025 8:30 AM EDT HISTORY AND PHYSICAL Aliyah Leach 1955 REFERRING PHYSICIAN: Jacque Reveles PA-C CHIEF COMPLAINT: No chief complaint on file. HPI: The patient is a 70 year old female here for colonoscopy. Last colonoscopy 2018 - hyperplastic polyp Fecal urgency after eating. PAST MEDICAL HISTORY Diagnosis Date Ambulates with cane Atrial fibrillation (HCC) 2023 Dr. Ring. Diagnosed when admitted for kidney stone. 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 Osborn. Has had kidney stones on right and left. 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, S/P EBRT and HDR brachytherapy Obesity, unspecified Pressure sore on buttocks 11/2024 Pt treating on own with A&D Psoriasis Radiation 2005 for Cervical Cancer PAST SURGICAL HISTORY Procedure Laterality Date ARTHRP KNE CONDYLE&PLATU MEDIAL&LAT COMPARTMENTS 2010 left knee ARTHRP KNE CONDYLE&PLATU MEDIAL&LAT COMPARTMENTS 01/01/2015 Right knee BIOPSY BREAST OPEN INCISIONAL Bx of breast, incisional CHOLECYSTECTOMY 1987 Open cholecystectomy COLECTOMY PARTIAL W/ANASTOMOSIS 1999 Hemicolectomy COLONOSCOPY 10/2018 COLONOSCOPY FLX DX W/COLLJ SPEC WHEN PFRMD Colonoscopy COLONOSCOPY FLX DX W/COLLJ SPEC WHEN PFRMD 09/09/2005 Colonoscopy COLONOSCOPY FLX DX W/COLLJ SPEC WHEN PFRMD 11/15/2008 Colonoscopy COLONOSCOPY FLX DX W/COLLJ SPEC WHEN PFRMD 02/11/12, 03/2015 Repeat in 3 years (03/2018) COLONOSCOPY SCREENING 02/05/2022 DILATION & CURETTAGE DX&/THER NONOBSTETRIC 05/29/2011 Dilation & curettage IR NEPHROSTOMY TUBE INSERT RIGHT Right 10/23/2024 IR [facility] PAST SURGICAL HISTORY OF Rt port placement REMV CATARACT EXTRACAP,INSERT LENS Left 10/2021 REPAIR FIRST ABDOMINAL WALL HERNIA 2000 Hernia repair, incisional TOT ABD HYST W/PARAORTIC & PELVIC LYMPH NODE MARK 06/19/2011 Exploratory laparotomy with extensive lysis of adhesions, total abdominal hysterectomy, bilateral salpingo- oophorectomy, cystoscopy, and omentectomy. Current Outpatient Medications Medication Sig levothyroxine (SYNTHROID) 112 mcg tablet Take 1 tablet by mouth once daily. magnesium oxide (MAG-OX) 400 mg (241.3 mg magnesium) tablet Take 1 tablet by mouth two times a day. pravastatin (PRAVACHOL) 40 mg tablet Take 1 tablet by mouth daily at bedtime. FLUoxetine (PROZAC) 40 mg capsule Take 1 capsule by mouth once daily. metFORMIN (GLUCOPHAGE) 1,000 mg tablet Take 1 tablet by mouth two times a day with meals. Incontinence Pad, Liner, Disp (POISE PADS) pads 1 pad five times a day. losartan (COZAAR) 25 mg tablet Take 1 tablet by mouth two times a day. CYANOCOBALAMIN/COBAMAMIDE (B12 SUBLINGUAL) Dissolve 1 tablet under the tongue once daily. Last dose 12/07/24 for OR 12/12/24 Cholecalciferol, Vitamin D3, 125 mcg (5,000 unit) cap Take 125 Units by mouth once daily. Last dose 12/07/24 for OR 12/12/24 blood sugar diagnostic (ACCU-CHEK ROBIN) test strip Use as instructed Blood-Glucose Meter (ACCU-CHEK ROBIN PLUS METER) misc 1 Each once daily. multivitamin ORAL tablet Take 1 tablet by mouth once daily. Last dose 12/07/24 for OR 12/12/24 dulaglutide (TRULICITY) 1.5 mg/0.5 mL pen injector Inject 1.5 mg subcutaneously one time a week. Inject once per week. Discard Pen After vit C,R-Ga-ysutg-lutein-zeaxan (PRESERVISION AREDS-2) 250-90-40-1 mg Take 1 capsule by mouth twice daily with meals. Lancets (ACCU-CHEK SOFTCLIX LANCETS) lancets Once daily. 250.40 Current Facility-Administered Medications Medication Dose Route Frequency lidocaine (PF) 10 mg/mL (1 %) 1-2 mg injection (XYLOCAINE) 0.1-0.2 mL INTRADERMAL PRN lactated ringers iv infusion 30 mL/hr INTRAVENOUS CONTINUOUS ALLERGIES: Detrol [Tolterodine Tartrate] and Penicillins PERSONAL HISTORY: SOCIAL HISTORY[1] FAMILY HISTORY: FAMILY HISTORY Problem Relation Age of Onset Diabetes Mother Genitourinary () Mother renal failure Cancer Father rectal cancer Hypertension Sister Diabetes Sister Cancer Sister lymphoma, leukemia Diabetes Brother Breast Cancer Paternal Aunt diagnosed in her late 50's still alive and well Thyroid Cancer Niece/Nephew other (? kidney cancer) Nephew REVIEW OF SYMPTOMS: Denies chest pain Denies shortness of breath Physical examination: Vital signs in chart, reviewed and noted by me General - WD/WN in no apparent distress, alert and oriented Head - Normocephalic. EOM intact with sclera clear. Mouth with mucus membranes moist. Neck - supple with no jugular venous distention noted. Trachea is midline. Lungs - normal breath sounds, normal respiratory motion, no adventitial sounds noted. Heart - normal heart sounds. Regular rate. Abdomen - soft and benign. Extremities - no pitting edema noted. Skin - Normal skin integrity. Neurological - non focal Psych - calm and appropriate Impression: surveillance colonoscopy for history of colon polyps, change in bowel habits - fecal urgency Discussion/Plan/Recommendations: I have discussed the above with the patient. I have offered colonoscopy , possible biopsies I have explained the procedure to the patient. I have counseled the patient as to the risks of the procedure, including but not limited to: infection, bleeding, injury to any intrabdominal organs such as liver/spleen, perforation of the GI tract, inability to complete the procedure, complications of anesthesia, etc. - the patient understands. The patient wishes to proceed. I have answered all questions to the patient s satisfaction and the patient has no further questions. Kiersten Diehl MD [1] Social History Tobacco Use Smoking status: Never Passive exposure: Never Smokeless tobacco: Never Vaping Use Vaping status: Never Used Substance Use Topics Alcohol use: Not Currently Drug use: No HISTORY AND PHYSICAL Aliyah Leach 1955 REFERRING PHYSICIAN: Jacque Reveles PA-C CHIEF COMPLAINT: No chief complaint on file. HPI: The patient is a 70 year old female here for colonoscopy. Last colonoscopy 2018 - hyperplastic polyp Fecal urgency after eating. PAST MEDICAL HISTORY Diagnosis Date Ambulates with cane Atrial fibrillation (HCC) 2023 Dr. Ring. Diagnosed when admitted for kidney stone. 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 Osborn. Has had kidney stones on right and left. 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, S/P EBRT and HDR brachytherapy Obesity, unspecified Pressure sore on buttocks 11/2024 Pt treating on own with A&D Psoriasis Radiation 2005 for Cervical Cancer PAST SURGICAL HISTORY Procedure Laterality Date ARTHRP KNE CONDYLE&PLATU MEDIAL&LAT COMPARTMENTS 2010 left knee ARTHRP KNE CONDYLE&PLATU MEDIAL&LAT COMPARTMENTS 01/01/2015 Right knee BIOPSY BREAST OPEN INCISIONAL Bx of breast, incisional CHOLECYSTECTOMY 1987 Open cholecystectomy COLECTOMY PARTIAL W/ANASTOMOSIS 1999 Hemicolectomy COLONOSCOPY 10/2018 COLONOSCOPY FLX DX W/COLLJ SPEC WHEN PFRMD Colonoscopy COLONOSCOPY FLX DX W/COLLJ SPEC WHEN PFRMD 09/09/2005 Colonoscopy COLONOSCOPY FLX DX W/COLLJ SPEC WHEN PFRMD 11/15/2008 Colonoscopy COLONOSCOPY FLX DX W/COLLJ SPEC WHEN PFRMD 02/11/12, 03/2015 Repeat in 3 years (03/2018) COLONOSCOPY SCREENING 02/05/2022 DILATION & CURETTAGE DX&/THER NONOBSTETRIC 05/29/2011 Dilation & curettage IR NEPHROSTOMY TUBE INSERT RIGHT Right 10/23/2024 IR [facility] PAST SURGICAL HISTORY OF Rt port placement REMV CATARACT EXTRACAP,INSERT LENS Left 10/2021 REPAIR FIRST ABDOMINAL WALL HERNIA 2000 Hernia repair, incisional TOT ABD HYST W/PARAORTIC & PELVIC LYMPH NODE MARK 06/19/2011 Exploratory laparotomy with extensive lysis of adhesions, total abdominal hysterectomy, bilateral salpingo- oophorectomy, cystoscopy, and omentectomy. Current Outpatient Medications Medication Sig levothyroxine (SYNTHROID) 112 mcg tablet Take 1 tablet by mouth once daily. magnesium oxide (MAG-OX) 400 mg (241.3 mg magnesium) tablet Take 1 tablet by mouth two times a day. pravastatin (PRAVACHOL) 40 mg tablet Take 1 tablet by mouth daily at bedtime. FLUoxetine (PROZAC) 40 mg capsule Take 1 capsule by mouth once daily. metFORMIN (GLUCOPHAGE) 1,000 mg tablet Take 1 tablet by mouth two times a day with meals. Incontinence Pad, Liner, Disp (POISE PADS) pads 1 pad five times a day. losartan (COZAAR) 25 mg tablet Take 1 tablet by mouth two times a day. CYANOCOBALAMIN/COBAMAMIDE (B12 SUBLINGUAL) Dissolve 1 tablet under the tongue once daily. Last dose 12/07/24 for OR 12/12/24 Cholecalciferol, Vitamin D3, 125 mcg (5,000 unit) cap Take 125 Units by mouth once daily. Last dose 12/07/24 for OR 12/12/24 blood sugar diagnostic (ACCU-CHEK ROBIN) test strip Use as instructed Blood-Glucose Meter (ACCU-CHEK ROBIN PLUS METER) misc 1 Each once daily. multivitamin ORAL tablet Take 1 tablet by mouth once daily. Last dose 12/07/24 for OR 12/12/24 dulaglutide (TRULICITY) 1.5 mg/0.5 mL pen injector Inject 1.5 mg subcutaneously one time a week. Inject once per week. Discard Pen After vit C,H-Gj-rdmvq-lutein-zeaxan (PRESERVISION AREDS-2) 250-90-40-1 mg Take 1 capsule by mouth twice daily with meals. Lancets (ACCU-CHEK SOFTCLIX LANCETS) lancets Once daily. 250.40 Current Facility-Administered Medications Medication Dose Route Frequency lidocaine (PF) 10 mg/mL (1 %) 1-2 mg injection (XYLOCAINE) 0.1-0.2 mL INTRADERMAL PRN lactated ringers iv infusion 30 mL/hr INTRAVENOUS CONTINUOUS ALLERGIES: Detrol [Tolterodine Tartrate] and Penicillins PERSONAL HISTORY: SOCIAL HISTORY[1] FAMILY HISTORY: FAMILY HISTORY Problem Relation Age of Onset Diabetes Mother Genitourinary () Mother renal failure Cancer Father rectal cancer Hypertension Sister Diabetes Sister Cancer Sister lymphoma, leukemia Diabetes Brother Breast Cancer Paternal Aunt diagnosed in her late 50's still alive and well Thyroid Cancer Niece/Nephew other (? kidney cancer) Nephew REVIEW OF SYMPTOMS: Denies chest pain Denies shortness of breath Physical examination: Vital signs in chart, reviewed and noted by me General - WD/WN in no apparent distress, alert and oriented Head - Normocephalic. EOM intact with sclera clear. Mouth with mucus membranes moist. Neck - supple with no jugular venous distention noted. Trachea is midline. Lungs - normal breath sounds, normal respiratory motion, no adventitial sounds noted. Heart - normal heart sounds. Regular rate. Abdomen - soft and benign. Extremities - no pitting edema noted. Skin - Normal skin integrity. Neurological - non focal Psych - calm and appropriate Impression: surveillance colonoscopy for history of colon polyps, change in bowel habits - fecal urgency Discussion/Plan/Recommendations: I have discussed the above with the patient. I have offered colonoscopy , possible biopsies I have explained the procedure to the patient. I have counseled the patient as to the risks of the procedure, including but not limited to: infection, bleeding, injury to any intrabdominal organs such as liver/spleen, perforation of the GI tract, inability to complete the procedure, complications of anesthesia, etc. - the patient understands. The patient wishes to proceed. I have answered all questions to the patient s satisfaction and the patient has no further questions. Kiersten Diehl MD [1] Social History Tobacco Use Smoking status: Never Passive exposure: Never Smokeless tobacco: Never Vaping Use Vaping status: Never Used Substance Use Topics Alcohol use: Not Currently Drug use: No documented in this encounter [facility] 04-05-2025 Telephone encounter Note TELEPHONE ENCOUNTER Aliyah Alonzos medication list was reviewed and patient was noted to be taking Trulicity per patient chart. The patient was contacted via telephone and it was discussed that the patient hold their medication 7 day(s) prior to their date of surgery. Patient confirmed understanding. Patient was also informed to reach out to their surgeon's office if they have any further questions or concerns, patient indicated understanding. SIGNATURE: Radha Nelson PA-C PATIENT NAME: Aliyah Leach DATE: April 05, 2025 [facility] Work Phone: 04-05-2025 Miscellaneous Notes TELEPHONE ENCOUNTER Aliyah Alonzos medication list was reviewed and patient was noted to be taking Trulicity per patient chart. The patient was contacted via telephone and it was discussed that the patient hold their medication 7 day(s) prior to their date of surgery. Patient confirmed understanding. Patient was also informed to reach out to their surgeon's office if they have any further questions or concerns, patient indicated understanding. SIGNATURE: Radha Nelson PA-C PATIENT NAME: Aliyah Leach DATE: April 05, 2025 documented in this encounter [facility] 04-04-2025 Note HNO ID: [id number] Author: BOBBY GRADY MD Service: ? Author Type: Physician Type: Progress Notes Filed: 04/04/2025 17:11 Note Text: Aliyah Leach is a 70-year-old female presenting for follow-up on visual hallucinations. HPI Visual Hallucinations: - Last seen on March 01 for visual hallucinations. - Hallucinations typically occur at night, described as brief and non-threatening. - Recent hallucination involved seeing an older leah in a yellow satin bunny suit with yellow fuzzy ears, which made her laugh. - Another hallucination involved seeing an old lady at the side of my bed resembling Queen Kenyatta. - Hallucinations do not cause distress; able to return to sleep immediately after. - No vision changes associated with hallucinations. - Aliyah denies hallucinations during the day. - Aliyah is scheduled for an eye exam at the end of the month. - MRI showed a prominent CSF signal focus at the right middle cerebral fossa, deemed not of major clinical significance. - Aliyah is scheduled for a sleep study at the end of April and a neurology appointment in May. - Aliyah is taking an herbal supplement containing calcium, kava, ashwagandha, and melatonin nightly. - Aliyah denies headaches, numbness, tingling, or weakness. - Aliyah denies chest pain, dyspnea, or palpitations. - Aliyah recently discontinued Eliquis and metoprolol. MEDICATIONS: Current Outpatient Medications Medication Sig levothyroxine (SYNTHROID) 112 mcg tablet Take 1 tablet by mouth once daily. magnesium oxide (MAG-OX) 400 mg (241.3 mg magnesium) tablet Take 1 tablet by mouth two times a day. pravastatin (PRAVACHOL) 40 mg tablet Take 1 tablet by mouth daily at bedtime. FLUoxetine (PROZAC) 40 mg capsule Take 1 capsule by mouth once daily. metFORMIN (GLUCOPHAGE) 1,000 mg tablet Take 1 tablet by mouth two times a day with meals. metoprolol succinate ER (TOPROL XL) 25 mg 24 hr tablet Take 1 tablet by mouth once daily. Incontinence Pad, Liner, Disp (POISE PADS) pads 1 pad five times a day. losartan (COZAAR) 25 mg tablet Take 1 tablet by mouth two times a day. apixaban (ELIQUIS) 5 mg tab(s) Take 1 tablet by mouth two times a day. nystatin (MYCOSTATIN) cream Apply to affected area two times a day. (Patient taking differently: Apply to affected area two times a day. [facility] 12/08/24: Course of therapy complete) dulaglutide (TRULICITY) 1.5 mg/0.5 mL pen injector Inject 1.5 mg subcutaneously one time a week. Inject once per week. Discard Pen After vit C,J-Ol-fivjw-lutein-zeaxan (PRESERVISION AREDS-2) 250-90-40-1 mg Take 1 capsule by mouth twice daily with meals. CYANOCOBALAMIN/COBAMAMIDE (B12 SUBLINGUAL) Dissolve 1 tablet under the tongue once daily. Last dose 12/07/24 for OR 12/12/24 Cholecalciferol, Vitamin D3, 125 mcg (5,000 unit) cap Take 125 Units by mouth once daily. Last dose 12/07/24 for OR 12/12/24 blood sugar diagnostic (ACCU-CHEK ROBIN) test strip Use as instructed Lancets (ACCU-CHEK SOFTCLIX LANCETS) lancets Once daily. 250.40 Blood-Glucose Meter (ACCU-CHEK ROBIN PLUS METER) misc 1 Each once daily. multivitamin ORAL tablet Take 1 tablet by mouth once daily. Last dose 12/07/24 for OR 12/12/24 No current facility-administered medications for this visit. ALLERGIES: ALLERGIES Allergen Reactions Detrol [Tolterodine* Rash Penicillins Rash Tolerating piperacillin/tazobactam at [facility] in October 2024. AD PharmD PAST MEDICAL HISTORY Diagnosis Date Ambulates with cane Atrial fibrillation (HCC) 2023 Dr. Ring. Diagnosed when admitted for kidney stone. 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 Osborn. Has had kidney stones on right and left. 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 [facility] 04-04-2025 History of Present illness Narrative Aliyah Leach is a 70-year-old female presenting for follow-up on visual hallucinations. HPI Visual Hallucinations: - Last seen on March 01 for visual hallucinations. - Hallucinations typically occur at night, described as brief and non-threatening. - Recent hallucination involved seeing an older leah in a yellow satin bunny suit with yellow fuzzy ears, which made her laugh. - Another hallucination involved seeing an old lady at the side of my bed resembling Queen Kenyatta. - Hallucinations do not cause distress; able to return to sleep immediately after. - No vision changes associated with hallucinations. - Aliyah denies hallucinations during the day. - Aliyah is scheduled for an eye exam at the end of the month. - MRI showed a prominent CSF signal focus at the right middle cerebral fossa, deemed not of major clinical significance. - Aliyah is scheduled for a sleep study at the end of April and a neurology appointment in May. - Aliyah is taking an herbal supplement containing calcium, kava, ashwagandha, and melatonin nightly. - Aliyah denies headaches, numbness, tingling, or weakness. - Aliyah denies chest pain, dyspnea, or palpitations. - Aliyah recently discontinued Eliquis and metoprolol. MEDICATIONS: Current Outpatient Medications Medication Sig levothyroxine (SYNTHROID) 112 mcg tablet Take 1 tablet by mouth once daily. magnesium oxide (MAG-OX) 400 mg (241.3 mg magnesium) tablet Take 1 tablet by mouth two times a day. pravastatin (PRAVACHOL) 40 mg tablet Take 1 tablet by mouth daily at bedtime. FLUoxetine (PROZAC) 40 mg capsule Take 1 capsule by mouth once daily. metFORMIN (GLUCOPHAGE) 1,000 mg tablet Take 1 tablet by mouth two times a day with meals. metoprolol succinate ER (TOPROL XL) 25 mg 24 hr tablet Take 1 tablet by mouth once daily. Incontinence Pad, Liner, Disp (POISE PADS) pads 1 pad five times a day. losartan (COZAAR) 25 mg tablet Take 1 tablet by mouth two times a day. apixaban (ELIQUIS) 5 mg tab(s) Take 1 tablet by mouth two times a day. nystatin (MYCOSTATIN) cream Apply to affected area two times a day. (Patient taking differently: Apply to affected area two times a day. [facility] 12/08/24: Course of therapy complete) dulaglutide (TRULICITY) 1.5 mg/0.5 mL pen injector Inject 1.5 mg subcutaneously one time a week. Inject once per week. Discard Pen After vit C,G-Yy-whghw-lutein-zeaxan (PRESERVISION AREDS-2) 250-90-40-1 mg Take 1 capsule by mouth twice daily with meals. CYANOCOBALAMIN/COBAMAMIDE (B12 SUBLINGUAL) Dissolve 1 tablet under the tongue once daily. Last dose 12/07/24 for OR 12/12/24 Cholecalciferol, Vitamin D3, 125 mcg (5,000 unit) cap Take 125 Units by mouth once daily. Last dose 12/07/24 for OR 12/12/24 blood sugar diagnostic (ACCU-CHEK ROBIN) test strip Use as instructed Lancets (ACCU-CHEK SOFTCLIX LANCETS) lancets Once daily. 250.40 Blood-Glucose Meter (ACCU-CHEK ROBIN PLUS METER) misc 1 Each once daily. multivitamin ORAL tablet Take 1 tablet by mouth once daily. Last dose 12/07/24 for OR 12/12/24 No current facility-administered medications for this visit. ALLERGIES: ALLERGIES Allergen Reactions Detrol [Tolterodine* Rash Penicillins Rash Tolerating piperacillin/tazobactam at [facility] in October 2024. AD PharmD PAST MEDICAL HISTORY Diagnosis Date Ambulates with cane Atrial fibrillation (HCC) 2023 Dr. Ring. Diagnosed when admitted for kidney stone. 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 Ledezma Has had kidney stones on right and left. 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, S/P EBRT and HDR brachytherapy Obesity, unspecified Pressure sore on buttocks 11/2024 Pt treating on own with A&D Psoriasis Radiation 2005 for Cervical Cancer PAST SURGICAL HISTORY Procedure Laterality Date ARTHRP KNE CONDYLE&PLATU MEDIAL&LAT COMPARTMENTS 2010 left knee ARTHRP KNE CONDYLE&PLATU MEDIAL&LAT COMPARTMENTS 01/01/2015 Right knee BIOPSY BREAST OPEN INCISIONAL Bx of breast, incisional CHOLECYSTECTOMY 1987 Open cholecystectomy COLECTOMY PARTIAL W/ANASTOMOSIS 1999 Hemicolectomy COLONOSCOPY 10/2018 COLONOSCOPY FLX DX W/COLLJ SPEC WHEN PFRMD Colonoscopy COLONOSCOPY FLX DX W/COLLJ SPEC WHEN PFRMD 09/09/2005 Colonoscopy COLONOSCOPY FLX DX W/COLLJ SPEC WHEN PFRMD 11/15/2008 Colonoscopy COLONOSCOPY FLX DX W/COLLJ SPEC WHEN PFRMD 02/11/12, 03/2015 Repeat in 3 years (03/2018) COLONOSCOPY SCREENING 02/05/2022 DILATION & CURETTAGE DX&/THER NONOBSTETRIC 05/29/2011 Dilation & curettage IR NEPHROSTOMY TUBE INSERT RIGHT Right 10/23/2024 IR [facility] PAST SURGICAL HISTORY OF Rt port placement REMV CATARACT EXTRACAP,INSERT LENS Left 10/2021 REPAIR FIRST ABDOMINAL WALL HERNIA 2000 Hernia repair, incisional TOT ABD HYST W/PARAORTIC & PELVIC LYMPH NODE MARK 06/19/2011 Exploratory laparotomy with extensive lysis of adhesions, total abdominal hysterectomy, bilateral salpingo- oophorectomy, cystoscopy, and omentectomy. FAMILY HISTORY Problem Relation Age of Onset Diabetes Mother Genitourinary () Mother renal failure Cancer Father rectal cancer Hypertension Sister Diabetes Sister Cancer Sister lymphoma, leukemia Diabetes Brother Breast Cancer Paternal Aunt diagnosed in her late 50's still alive and well Thyroid Cancer Niece/Nephew other (? kidney cancer) Nephew SOCIAL HISTORY[1] Reviewed current medications, allergies, past medical history, surgical history, family history and social history today. REVIEW OF SYSTEMS Constitutional: (-) insomnia Eyes: (-) vision changes Cardiovascular: (-) chest pain, (-) palpitations Respiratory: (-) dyspnea Neurological: (+) visual hallucinations, (-) headache, (-) numbness, (-) tingling, (-) weakness HEALTH MAINTENANCE: Reviewed health maintenance issues today and recommended the following in detail. Advance Directive Discussion due on 08/24/2024 Medicare Advantage Annual Wellness Visit Never done Diabetic Foot Exam due on 04/04/2025 Dilated Retinal Exam due on 04/18/2025 LAB REVIEWED: Labs: - CBC: Normal - CMP: - Creatinine: 0.98 (borderline elevated) - GFR: Normal - TSH: Normal - B12: Elevated - Folate: Normal - B1: Elevated - VDRL: Negative - Average blood sugar: 5.8 - Iron: Normal - Ferritin: Normal Imaging: - MRI Brain: Prominent CSF signal focus in the right middle cerebral fossa, deemed not clinically significant. VITALS: BP 112/62 Pulse 86 Wt 106.1 kg (234 lb) LMP 08/20/2005 SpO2 96% BMI 40.15 kg/m Last 4 Encounter Wt Readings: Date: Wt: 04/04/2025 106.1 kg (234 lb) 03/17/2025 106 kg (233 lb 11 oz) 03/01/2025 105.2 kg (232 lb) 12/19/2024 103.9 kg (229 lb) PHYSICAL EXAMINATION: GENERAL: NAD, alert and oriented SKIN: unremarkable, no rash or skin lesions. NECK: Supple, no lymphadenopathy, normal thyroid, no carotid bruits. LUNGS: Clear to auscultation bilaterally, no wheezes/rhonchi/rales. HEART: Regular rate and rhythm, no murmurs. No ectopy. EXTREMITIES: Normal, No deformities, No skin discoloration, No edema. NEURO: Awake, alert and oriented x3, cranial nerves II-XII grossly intact, normal gait, no involuntary motions ASSESSMENT AND PLAN 1. Visual hallucination (R44.1) 2. Sleep disorder (G47.9) - Visual hallucinations are brief, non-threatening, and occur only at night when transitioning in and out of sleep; no associated vision changes, headaches, numbness, tingling, or weakness. - MRI showed a prominent CSF signal focus at the right middle cerebral fossa, which radiology deemed likely a normal variant without major clinical significance. - CBC, CMP, thyroid, B12, folate, thiamine, VDRL, vitamin D, A1c, iron, and ferritin all within normal limits. - Differential includes parasomnia or REM sleep behavior disorder; no evidence of daytime hallucinations or other neurological symptoms. - Advised patient to proceed with scheduled overnight sleep study to evaluate for parasomnia or REM sleep behavior disorder. - Continue current herbal sleep aid (containing calcium, kava, ashwagandha, melatonin). - Follow-up with neurology sleep specialist in May. - Educated patient on the nature of parasomnias and REM sleep behavior disorders, emphasizing that these are not indicative of psychiatric illness. - Advised patient to report any worsening or new symptoms. - Follow-up in 3-4 months to review sleep study results and neurology recommendations. 3. Primary hypertension (I10) - stable. 4. Atrial fibrillation with RVR (HCC) (I48.91) - No current chest pain, palpitations, or dyspnea. - Patient is off Eliquis and metoprolol. 5. Abnormal MRI (R93.89) - likely ok, but will follow with neuro/sleep (See patient after visit summary for additional instructions to patient) Bobby Grady MD Recording using ambient [employer] software for draft documentation of the visit was discussed with the patient/authorized procurement representative; all questions welcomed and answered. Patient/authorized procurement representative agreed to proceed [1] Social History Tobacco Use Smoking status: Never Passive exposure: Never Smokeless tobacco: Never Vaping Use Vaping status: Never Used Substance Use Topics Alcohol use: Not Currently Drug use: No documented in this encounter [facility] 04-04-2025 Instructions Bobby Grady MD - 04/04/2025 5:01 PM EDT - Continue your nightly herbal sleep supplement (the Hunter s formula with calcium, kava, ashwagandha, and melatonin) as you ve been taking it. - Proceed with the overnight sleep study scheduled for the end of April to evaluate for a REM sleep behavior disorder (parasomnia). - Attend your neurology appointment in May, after the sleep study, to review the findings and discuss further management. - Keep your eye exam appointment later this month as planned. - Complete your colonoscopy at the end of this month. - No iron supplement is needed despite your iron level being on the lower side of normal. - You remain off Eliquis and metoprolol per prior instructions--no additional changes to your heart medications at this time. - Notify the office if you experience any new or worsening sleep behaviors, visual hallucinations outside of sleep, headaches, weakness, numbness, or vision changes. - Plan to return for follow-up in about 3 to 4 months to review your sleep study and neurology results, the MRI findings, and your overall progress. documented in this encounter [facility] 04-03-2025 Telephone encounter Note Prescription Refill Information The patient has been identified by name and date of : Yes Caregiver verified no other encounters exist for this prescription request: Yes Caregiver confirmed with patient/requestor that no other refills are due, in the near future, with this provider at this time: Yes The last office visit in the department: 03/01/25 Does the patient have a future office visit with this provider/department: Yes Requested Prescriptions Pending Prescriptions Disp Refills levothyroxine (SYNTHROID) 112 mcg tablet 90 tablet 3 Sig: Take 1 tablet by mouth once daily. Susana Smith April 03, 2025 8:52 AM [facility] 04-03-2025 Miscellaneous Notes Prescription Refill Information The patient has been identified by name and date of : Yes Caregiver verified no other encounters exist for this prescription request: Yes Caregiver confirmed with patient/requestor that no other refills are due, in the near future, with this provider at this time: Yes The last office visit in the department: 03/01/25 Does the patient have a future office visit with this provider/department: Yes Requested Prescriptions Pending Prescriptions Disp Refills levothyroxine (SYNTHROID) 112 mcg tablet 90 tablet 3 Sig: Take 1 tablet by mouth once daily. Susana Smith April 03, 2025 8:52 AM documented in this encounter [facility] 03-17-2025 Instructions Kevon Gonzalez MD - 03/17/2025 10:32 AM EDT - We will arrange an overnight sleep study in the lab to monitor your breathing, brain waves, and movements. You can let the store facility technician know if you see or react to anything during the night. - Keep a consistent sleep schedule: aim to go to bed around midnight and wake at the same time each morning, including weekends. - Practice the 10-20 minute rule : if you can t fall asleep within 10-20 minutes, leave the bed and do a quiet, relaxing activity in another room. Return to bed only when you feel sleepy. - Maintain a cool, dark bedroom environment. - Avoid heavy meals, caffeine (including iced tea), and alcohol for at least 4 hours before bedtime. - Continue noting the times and details of any visual episodes or awakenings so we can review them when your sleep study results are available. -Your most recent body mass index (BMI) that we have on record is 40.09 kg/m2. Obstructive sleep apnea (ROSE) worsens with an increase in weight; reduction in weight may improve or resolve your ROSE. If you are not already seeking treatment, there are resources available at the [facility] such as a nutrition consultation or referral to weight management programs at our [facility] [place]. Please let us know if we can assist with a referral. -We will give you an order for labs to be done before your next visit (hold your iron-containing multivitamin two days before your lab draw) documented in this encounter [facility] 03-17-2025 Note HNO ID: [id number] Author: CONSTANCE RODRIGUEZ MD Service: ? Author Type: Fellow Type: Progress Notes Filed: 03/20/2025 09:26 Note Text: [facility] New Patient Evaluation PATIENT NAME: Aliyah Leach DATE OF SERVICE: March 17, 2025 CONSULTING PROVIDER: Bobby Grady [address] [facility] [id number] REASON FOR CONSULT: Bobby Grady sends the patient for an opinion about visual hallucinations. My findings and recommendations will be transmitted electronically via shared medical record to the consulting provider. HPI: This is a 70-year-old female who presented to the [facility] on 03/17/2025 for initial evaluation. Her primary concern is a one year history of visual hallucinations. She states that the visual hallucinations are happening predominantly between midnight and 6AM. She estimates that she typically sees 3-4 different people per night. The people that she sees are of varying ages. She states that she never sees the same person. She states that she does not recognize the people that she sees as relatives, friends, or famous people. She does not interact with the hallucinations and she does not find them distressing. She does not feel any physical symptoms associated with the hallucinations. The patient's sister recently reminded her that she had visual hallcuinations after receiving B12 shots in her 20s. She denies any such symptoms in childhood. She denies any family history of such symptoms. She denies any recent traumas or falls. The clarity of her visual symptoms are unchanged whether she has her corrective lenses on. She denies any personal history of tonsillectomy. Additional sleep review of systems is positive for difficulty with sleep initiation and maintenance, daytime sleepiness, snoring, dry mouth on awakening, morning headaches, night sweats, frequent nocturnal limb movements, and heart burn. The patient also reports an uncontrollable urge to move her legs, which she states is confounded by her concurrent diabetic neuropathy, altering the sensorium from the mid-calf down). Review of systems is negative for witnessed apnea, choking/gasping episodes, sinus congestion, cataplexy, sleep paralysis, sleepiness while driving. She has additionally had a progressive weight gain. In order to improve her sleep maintenance, the patient has tried melatonin, Tylenol PM, THC gummies, and a Melaleuca supplement with no efficacy and no effect on hallcuinations. The patient's past medical history is significant for atrial fibrillation found during her last hospitalization in October for which she is taking Eliquis, magnesium, and metoprolol. She recently wore an event monitor for two weeks. Her additional medical history is significant for Type II DM for which she uses Trulicity and Metformin. She states she checks her blood sugar every morning and can feel when she becomes hypoglycemic. She denies any hypoglycemia episodes. Her medications were reviewed and she takes losartan for hypertension as well as pravastatin for hyperlipidemia. She has chronically been maintained on fluoxetine with no recent dosage changes. She is typically taking her morning meds at noon and her evening medications at midnight. Sleep Environment: The patient prefers to sleep on her right side. She keeps her bedroom cool. She reads books in her bed for several hours before falling asleep. She does not sleep with any lights on and does not watch television in her room. The patient's family history is significant for thyroid disease, diabetes melltius, unspecified cancer, and depression. The patient's dietary habits were reviewed. Up until a recent hospitalization in October 2024 for nephrolithiasis she was drinking a gallon on iced tea per day. Now she has one or two cups of decaffeinated iced tea. She states that she's not eating breakfast. She typically eats at 2pm, 530pm, and 9pm. She denies having any food or drink after getting into her bed for the night. THe patient denies any alcohol or tobacco consumption. Sleep history: - Overall goals of treatment: Improve sleep quality and reduce visual hallucinations. - Sleep habits: - Typical bedtime: 00:00 - Patient goes to bed around midnight and reads until she falls asleep around 03:00. - Typical wake time: 12:00 - Time to fall asleep: Approximately 2 hours. - Nighttime awakening number: Wakes up multiple times a night due to hallucinations. - Nap schedule: Occasionally takes naps lasting about an hour, but does not find them refreshing. - [place] sleepiness scale score: 04/16 Patient Questionnaires Sleep Scores 03/14/2025 Sleep Questions Reason for visit: Difficulty falling or staying asleep or poor sleep quality Restless Legs Syndrome Abnormal sleep/wake timing Abnormal behaviors/movements during sleep On average, hours of sleep in 24 hours: 10 Accident (more content not included)... [facility] 03-17-2025 History of Present illness Narrative Images from the original note were not included. [facility] New Patient Evaluation PATIENT NAME: Aliyah Leach DATE OF SERVICE: March 17, 2025 CONSULTING PROVIDER: Bobby Grady [address] [facility] [id number] REASON FOR CONSULT: Bobby Grady sends the patient for an opinion about visual hallucinations. My findings and recommendations will be transmitted electronically via shared medical record to the consulting provider. HPI: This is a 70-year-old female who presented to the [facility] on 03/17/2025 for initial evaluation. Her primary concern is a one year history of visual hallucinations. She states that the visual hallucinations are happening predominantly between midnight and 6AM. She estimates that she typically sees 3-4 different people per night. The people that she sees are of varying ages. She states that she never sees the same person. She states that she does not recognize the people that she sees as relatives, friends, or famous people. She does not interact with the hallucinations and she does not find them distressing. She does not feel any physical symptoms associated with the hallucinations. The patient's sister recently reminded her that she had visual hallcuinations after receiving B12 shots in her 20s. She denies any such symptoms in childhood. She denies any family history of such symptoms. She denies any recent traumas or falls. The clarity of her visual symptoms are unchanged whether she has her corrective lenses on. She denies any personal history of tonsillectomy. Additional sleep review of systems is positive for difficulty with sleep initiation and maintenance, daytime sleepiness, snoring, dry mouth on awakening, morning headaches, night sweats, frequent nocturnal limb movements, and heart burn. The patient also reports an uncontrollable urge to move her legs, which she states is confounded by her concurrent diabetic neuropathy, altering the sensorium from the mid-calf down). Review of systems is negative for witnessed apnea, choking/gasping episodes, sinus congestion, cataplexy, sleep paralysis, sleepiness while driving. She has additionally had a progressive weight gain. In order to improve her sleep maintenance, the patient has tried melatonin, Tylenol PM, THC gummies, and a Melaleuca supplement with no efficacy and no effect on hallcuinations. The patient's past medical history is significant for atrial fibrillation found during her last hospitalization in October for which she is taking Eliquis, magnesium, and metoprolol. She recently wore an event monitor for two weeks. Her additional medical history is significant for Type II DM for which she uses Trulicity and Metformin. She states she checks her blood sugar every morning and can feel when she becomes hypoglycemic. She denies any hypoglycemia episodes. Her medications were reviewed and she takes losartan for hypertension as well as pravastatin for hyperlipidemia. She has chronically been maintained on fluoxetine with no recent dosage changes. She is typically taking her morning meds at noon and her evening medications at midnight. Sleep Environment: The patient prefers to sleep on her right side. She keeps her bedroom cool. She reads books in her bed for several hours before falling asleep. She does not sleep with any lights on and does not watch television in her room. The patient's family history is significant for thyroid disease, diabetes melltius, unspecified cancer, and depression. The patient's dietary habits were reviewed. Up until a recent hospitalization in October 2024 for nephrolithiasis she was drinking a gallon on iced tea per day. Now she has one or two cups of decaffeinated iced tea. She states that she's not eating breakfast. She typically eats at 2pm, 530pm, and 9pm. She denies having any food or drink after getting into her bed for the night. THe patient denies any alcohol or tobacco consumption. Sleep history: - Overall goals of treatment: Improve sleep quality and reduce visual hallucinations. - Sleep habits: - Typical bedtime: 00:00 - Patient goes to bed around midnight and reads until she falls asleep around 03:00. - Typical wake time: 12:00 - Time to fall asleep: Approximately 2 hours. - Nighttime awakening number: Wakes up multiple times a night due to hallucinations. - Nap schedule: Occasionally takes naps lasting about an hour, but does not find them refreshing. - [place] sleepiness scale score: 04/16 Patient Questionnaires Sleep Scores 03/14/2025 Sleep Questions Reason for visit: Difficulty falling or staying asleep or poor sleep quality Restless Legs Syndrome Abnormal sleep/wake timing Abnormal behaviors/movements during sleep On average, hours of sleep in 24 hours: 10 Accidents or near accidents due to drowsy drivin Multiple values from one day are sorted in reverse-chronological order 03/14/2025 [place] Sleepiness Scale Score 8 (No clinically significant daytime sleepiness) 03/14/2025 PROMIS CAT Sleep Disturbance PROMIS Sleep Disturbance T-Score 72 (severe) PROMIS Sleep Disturbance Percentile 1 03/14/2025 Restless Leg Syndrome Score 12 (Moderate symptoms) 03/14/2025 PHQ-9 Score 12 01/22/2025 PROMIS Global Health - (T-Scores - the mean of general population = 50. Five points is a clinically meaningful difference.) Physical T-Score 42.3 Mental T-Score 48.3 PAST TREATMENTS: None PRIOR SLEEP STUDIES: None OTHER RELEVANT LABS AND STUDIES: HbA1c 5.8%, vitamin D 25-hydroxy 49.8, syphilis negative, vitamin B1 249.9, folate greater than 20, vitamin B12 1432, TSH 0.875 CMP electrolytes within normal limits. Creatinine notably elevated from 4 months prior (0.54-0.98) CBC Hb 11.9, HCT 38.4. 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 PAST MEDICAL HISTORY Diagnosis Date Ambulates with cane Atrial fibrillation (HCC) 2023 Dr. Ring. Diagnosed when admitted for kidney stone. 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 Osborn. Has had kidney stones on right and left. 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, S/P EBRT and HDR brachytherapy Obesity, unspecified Pressure sore on buttocks 11/2024 Pt treating on own with A&D Psoriasis Radiation 2005 for Cervical Cancer PAST SURGICAL HISTORY Procedure Laterality Date ARTHRP KNE CONDYLE&PLATU MEDIAL&LAT COMPARTMENTS 2010 left knee ARTHRP KNE CONDYLE&PLATU MEDIAL&LAT COMPARTMENTS 01/01/2015 Right knee BIOPSY BREAST OPEN INCISIONAL Bx of breast, incisional CHOLECYSTECTOMY 1987 Open cholecystectomy COLECTOMY PARTIAL W/ANASTOMOSIS 1999 Hemicolectomy COLONOSCOPY 10/2018 COLONOSCOPY FLX DX W/COLLJ SPEC WHEN PFRMD Colonoscopy COLONOSCOPY FLX DX W/COLLJ SPEC WHEN PFRMD 09/09/2005 Colonoscopy COLONOSCOPY FLX DX W/COLLJ SPEC WHEN PFRMD 11/15/2008 Colonoscopy COLONOSCOPY FLX DX W/COLLJ SPEC WHEN PFRMD 02/11/12, 03/2015 Repeat in 3 years (03/2018) COLONOSCOPY SCREENING 02/05/2022 DILATION & CURETTAGE DX&/THER NONOBSTETRIC 05/29/2011 Dilation & curettage IR NEPHROSTOMY TUBE INSERT RIGHT Right 10/23/2024 IR Merclexis PAST SURGICAL HISTORY OF Rt port placement REMV CATARACT EXTRACAP,INSERT LENS Left 10/2021 REPAIR FIRST ABDOMINAL WALL HERNIA 2000 Hernia repair, incisional TOT ABD HYST W/PARAORTIC & PELVIC LYMPH NODE MARK 06/19/2011 Exploratory laparotomy with extensive lysis of adhesions, total abdominal hysterectomy, bilateral salpingo- oophorectomy, cystoscopy, and omentectomy. 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) Lesion of Liver Less Than 1 Cm in Diameter With History of Extrahepatic Malignant Neoplasm Generalized Abdominal Pain Abdominal Distension (Gaseous) Personal History of Other Malignant Neoplasm of Large Intestine Personal History of Malignant Neoplasm of Other Parts of Uterus Personal History of in-Situ Neoplasm of Cervix Uteri Severe Sepsis (Hcc) Right Ureteral Calculus Renal Atrophy, Left [place] (Acute Kidney Injury) Acute Uti Obesity, Class II, Bmi 35-39.9 Atrial Fibrillation With Rvr (Hcc) Hypertension Preop Testing Allergies As of Date: 03/17/2025 Allergen Noted Reaction DETROL [TOLTERODINE TARTRATE] 08/08/2005 Rash PENICILLINS 08/08/2005 Rash Fully Assessed 03/17/2025 CURRENT MEDICATIONS: magnesium oxide (MAG-OX) 400 mg (241.3 mg magnesium) tablet Take 1 tablet by mouth two times a day. pravastatin (PRAVACHOL) 40 mg tablet Take 1 tablet by mouth daily at bedtime. FLUoxetine (PROZAC) 40 mg capsule Take 1 capsule by mouth once daily. metFORMIN (GLUCOPHAGE) 1,000 mg tablet Take 1 tablet by mouth two times a day with meals. metoprolol succinate ER (TOPROL XL) 25 mg 24 hr tablet Take 1 tablet by mouth once daily. Incontinence Pad, Liner, Disp (POISE PADS) pads 1 pad five times a day. losartan (COZAAR) 25 mg tablet Take 1 tablet by mouth two times a day. apixaban (ELIQUIS) 5 mg tab(s) Take 1 tablet by mouth two times a day. nystatin (MYCOSTATIN) cream Apply to affected area two times a day. (Patient taking differently: Apply to affected area two times a day. [facility] 12/08/24: Course of therapy complete) dulaglutide (TRULICITY) 1.5 mg/0.5 mL pen injector Inject 1.5 mg subcutaneously one time a week. Inject once per week. Discard Pen After levothyroxine (SYNTHROID) 112 mcg tablet Take 1 tablet by mouth once daily. vit C,D-Cu-tncsz-lutein-zeaxan (PRESERVISION AREDS-2) 250-90-40-1 mg Take 1 capsule by mouth twice daily with meals. CYANOCOBALAMIN/COBAMAMIDE (B12 SUBLINGUAL) Dissolve 1 tablet under the tongue once daily. Last dose 12/07/24 for OR 12/12/24 Cholecalciferol, Vitamin D3, 125 mcg (5,000 unit) cap Take 125 Units by mouth once daily. Last dose 12/07/24 for OR 12/12/24 blood sugar diagnostic (ACCU-CHEK ROBIN) test strip Use as instructed Lancets (ACCU-CHEK SOFTCLIX LANCETS) lancets Once daily. 250.40 Blood-Glucose Meter (ACCU-CHEK ROBIN PLUS METER) misc 1 Each once daily. multivitamin ORAL tablet Take 1 tablet by mouth once daily. Last dose 12/07/24 for OR 12/12/24 Constitutional: (+) fatigue, (+) daytime sleepiness, (+) night sweats Eyes: (+) blurry vision (left eye), (-) visual floaters Ears/Nose/Mouth/Throat: (+) dry mouth, (-) nasal congestion Respiratory: (+) snoring, (-) nocturnal choking/gasping Gastrointestinal: (+) heartburn Genitourinary: (+) urinary incontinence Musculoskeletal: (+) back pain Neurological: (+) restless legs, (+) lower extremity numbness, (+) morning headaches , (-) seizures Psychiatric: (+) insomnia, (+) visual hallucinations, (-) auditory hallucinations, (-) anxiety, (-) sleep talking, (-) sleep walking SOCIAL HISTORY: Social History Tobacco Use Smoking status: Never Passive exposure: Never Smokeless tobacco: Never Vaping Use Vaping status: Never Used Substance Use Topics Alcohol use: Not Currently Drug use: No FAMILY HISTORY: FAMILY HISTORY Problem Relation Age of Onset Diabetes Mother Genitourinary () Mother renal failure Cancer Father rectal cancer Hypertension Sister Diabetes Sister Cancer Sister lymphoma, leukemia Diabetes Brother Breast Cancer Paternal Aunt diagnosed in her late 50's still alive and well Thyroid Cancer Niece/Nephew other (? kidney cancer) Nephew PHYSICAL EXAMINATION: Vital Signs: BP 131/57 (BP Site: Left Arm, BP Position: Sitting, BP Cuff Size: Regular Adult) Pulse 72 Ht 162.6 cm (5' 4.02) Wt 106 kg (233 lb 11 oz) LMP 08/20/2005 SpO2 96% BMI 40.09 kg/m PHYSICAL EXAM: General appearance: this is an elderly female sitting in chair Mental status: Appropriate thought content and insight; participates in interview Neck circumference: 43.5 cm Skin: warm, dry, intact Eyes: No abnormal extra-ocular eye movement ENT : Nasal congestion absent, Nasal valve incompetence absent. Posterior airspace: Garcia tongue position 4, retrognathia present. Overbite absent. High arched palate absent. Tongue scalloping/ridging absent. Uvula: no aberration in position Chest: Regular S1 and S2, Lungs clear to auscultation Extremities: Able to move all four extremities spontaneously Neuro: No focal neurologic deficits appreciated on examination IMPRESSION/PLAN: G47.30 Unspecified sleep apnea (primary encounter diagnosis) R44.1 Visual hallucination G25.81 Restless legs syndrome E11.9 Type 2 diabetes mellitus without complication, unspecified whether rodent exterminator insulin use ([facility]) Z68.41 BMI 40.0-44.9, adult ([facility]) G47.09 Sleep initiation disorder This is a 70-year-old female presenting with a 1 year history of visual hallucinations. She endorses additional symptoms concerning for underlying sleep disordered breathing. The differential diagnosis for visual hallucinations in the context of sleep disturbance were discussed at length. An additional discussion was held around the treatment options for obstructive sleep apnea. Patient verbalized understanding and expressed agreement to proceeding with in lab polysomnography with split-night protocol as well as parasomnia montage. In the context of the patient's additional concerns for symptoms of restless leg syndrome, iron studies were ordered for further evaluation. The patient is recommended to continue to follow-up with her other providers for pharmacotherapy optimization and care coordination. The patient is additionally encouraged to maintain adequate sleep hygiene in order to allow for adequate sleep opportunity as well as to monitor the frequency and timing of her visual hallucinations. The opportunity ask additional questions was provided to the patient. She voiced that expressed agreement to follow-up after sleep study for review results and refined on the plan of care. Kevon Gonzalez MD Sleep Medicine Fellow Staffed with: Dr. Rodriguez Recording using [employer] software for draft documentation of the visit was discussed with the patient/authorized procurement representative; all questions welcomed and answered. Patient/authorized procurement representative agreed to proceed This note was partially generated using [employer] voice recognition system, and there may be some incorrect words, spellings, and punctuation that were not noted in checking the note before saving. Attending Note I evaluated the patient and personally participated in the atkinson components. I agree with the fellow's findings and plan as documented. I have discussed the case with management of patient's care with the fellow and patient. Signature: Constance Rodriguez MD Date: 03/20/2025 documented in this encounter [facility] 03-13-2025 Telephone encounter Note Spoke with patient. Only sooner appointment at [facility] is tomorrow, but patient has a she really wants to attend. Patient did not want to drive to [place] to be seen. Appointment is on the waitlist. [facility] 03-13-2025 Miscellaneous Notes Spoke with patient. Only sooner appointment at [facility] is tomorrow, but patient has a she really wants to attend. Patient did not want to drive to [place] to be seen. Appointment is on the waitlist. Ok. See if there is an appt sooner than several months away documented in this encounter [facility] 03-09-2025 Telephone encounter Note The following approved medication requests have been transmitted electronically. Requested Prescriptions Pending Prescriptions Disp Refills magnesium oxide (MAG-OX) 400 mg (241.3 mg magnesium) tablet 60 tablet 3 Sig: Take 1 tablet by mouth two times a day. Amparo Crowley APRN.CNP [facility] 03-09-2025 Miscellaneous Notes The following approved medication requests have been transmitted electronically. Requested Prescriptions Pending Prescriptions Disp Refills magnesium oxide (MAG-OX) 400 mg (241.3 mg magnesium) tablet 60 tablet 3 Sig: Take 1 tablet by mouth two times a day. Amparo Crowley APRN.CNP Prescription Refill Information The patient has been identified by name and date of : Yes Caregiver verified no other encounters exist for this prescription request: Yes Caregiver confirmed with patient/requestor that no other refills are due, in the near future, with this provider at this time: Yes The last office visit in the department: 03/01/25 Does the patient have a future office visit with this provider/department: Yes 04/04/25 Requested Prescriptions Pending Prescriptions Disp Refills magnesium oxide (MAG-OX) 400 mg (241.3 mg magnesium) tablet 60 tablet 0 Sig: Take 1 tablet by mouth two times a day. Tiffanie Vasques LPN March 09, 2025 2:24 PM documented in this encounter [facility] 03-09-2025 Telephone encounter Note Prescription Refill Information The patient has been identified by name and date of : Yes Caregiver verified no other encounters exist for this prescription request: Yes Caregiver confirmed with patient/requestor that no other refills are due, in the near future, with this provider at this time: Yes The last office visit in the department: 03/01/25 Does the patient have a future office visit with this provider/department: Yes 04/04/25 Requested Prescriptions Pending Prescriptions Disp Refills magnesium oxide (MAG-OX) 400 mg (241.3 mg magnesium) tablet 60 tablet 0 Sig: Take 1 tablet by mouth two times a day. Tiffanie Vasques LPN March 09, 2025 2:24 PM [facility] 03-07-2025 Telephone encounter Note Ok. See if there is an appt sooner than several months away [facility] 03-06-2025 History of Present illness Narrative Radiology Service Progress Note DATE OF SERVICE: March 06, 2025 TIME: 1:44 PM PATIENT IDENTITY VERIFICATION COMPLETED USING TWO (2) STANDARD IDENTIFIERS: Name and Date of confirmed by patient verbally. FALL SCREENING: Has the patient had 2 falls in the last year or 1 fall with injury or currently using an Ambulatory Assistive Device (Walker, Cane, Wheelchair, Crutches, etc.)? Yes, Patient High Risk for Falls What interventions were put in place to prevent falls during this visit? Instructed Patient to Call for Help if Needed, Offered Assistance with Transfers/Clothing, Instructed Patient to Remain Seated (Not on Exam Table) Until Exam, and Increased Observations by Caregivers PATIENT GENDER DATA: Assigned female at . status: : No status: NO. PATIENT RELEVANT IMPLANT DATA REVIEWED: Yes PATIENT PRESENTS WITH AN IMPLANTABLE OR ATTACHED SOCIAL WORKER HEALTH SERVICES: No ALLERGIES: Reviewed and unchanged CONTRAST ALLERGY: NO. EXAM: MRI - CONTRAST TYPE: GROUP II PERIPHERAL IV DATA: Ambulatory: A peripheral IV was started in the Right antecubital site with a Angio cath: 22 gauge. RADIOLOGY DEPARTMENT: MR; Exam(s) Completed: Head: Routine Brain. Aromatherapy Administered: No SIGNATURE: RT Ismael(Chacha) PATIENT NAME: Aliyah Leach DATE: March 06, 2025 TIME: 1:44 PM documented in this encounter [facility] 03-06-2025 Note HNO ID: [id number] Author: MICHAEL JUÁREZ RT (R) Service: ? Author Type: Technologist Type: Progress Notes Filed: 03/06/2025 13:44 Note Text: Radiology Service Progress Note DATE OF SERVICE: March 06, 2025 TIME: 1:44 PM PATIENT IDENTITY VERIFICATION COMPLETED USING TWO (2) STANDARD IDENTIFIERS: Name and Date of confirmed by patient verbally. FALL SCREENING: Has the patient had 2 falls in the last year or 1 fall with injury or currently using an Ambulatory Assistive Device (Walker, Cane, Wheelchair, Crutches, etc.)? Yes, Patient High Risk for Falls What interventions were put in place to prevent falls during this visit? Instructed Patient to Call for Help if Needed, Offered Assistance with Transfers/Clothing, Instructed Patient to Remain Seated (Not on Exam Table) Until Exam, and Increased Observations by Caregivers PATIENT GENDER DATA: Assigned female at . status: : No status: NO. PATIENT RELEVANT IMPLANT DATA REVIEWED: Yes PATIENT PRESENTS WITH AN IMPLANTABLE OR ATTACHED SOCIAL WORKER HEALTH SERVICES: No ALLERGIES: Reviewed and unchanged CONTRAST ALLERGY: NO. EXAM: MRI - CONTRAST TYPE: GROUP II PERIPHERAL IV DATA: Ambulatory: A peripheral IV was started in the Right antecubital site with a Angio cath: 22 gauge. RADIOLOGY DEPARTMENT: MR; Exam(s) Completed: Head: Routine Brain. Aromatherapy Administered: No SIGNATURE: RT Ismael(Chacha) PATIENT NAME: Aliyah Leach DATE: March 06, 2025 TIME: 1:44 PM [facility] 03-01-2025 Note HNO ID: [id number] Author: BOBBY GRADY MD Service: ? Author Type: Physician Type: Progress Notes Filed: 03/01/2025 12:09 Note Text: Patient presents with: Follow Up HPI: Patient presents today for office visit for acute follow up. Visual Hallucinations: - Experiencing visual hallucinations multiple times per night, described as seeing distinct people or figures upon waking. - Hallucinations are brief and disappear when addressed; no auditory component. - Occasional daytime hallucinations when waking from naps. - No associated seizures, tremors, or loss of bowel/bladder control. - No recent head trauma or falls. - No history of seizures. - No recent medication changes; currently taking Prozac and B12. - Denies anxiety, depression, or significant memory issues. - No chest pain or dyspnea. - No chronic numbness or weakness in extremities. - No new dizziness or vertigo. - No unusual headaches. - No significant vision changes; has an upcoming eye appointment in March. - No known allergies. - Scheduled for a colonoscopy in March. - Recent blood glucose readings around 137 mg/dL. - Wearing a heart monitor for a month to rule out AFib. MEDICATIONS: Current Outpatient Medications Medication Sig iv contrast (will be provided with radiology test) MRI Brain Inject, intravenously, once for 1 dose.No IV access, insert saline lock prior to beginning of sedation, infusion, injection of imaging exam.Discontinue saline lock post exam. If Pt. has a central line or IVAD, may access for administration according to line specific nursing protocol.Once exam is complete flush line and de-access according to line specific nursing protocol in the MR contrast administration guidelines link pravastatin (PRAVACHOL) 40 mg tablet Take 1 tablet by mouth daily at bedtime. FLUoxetine (PROZAC) 40 mg capsule Take 1 capsule by mouth once daily. metFORMIN (GLUCOPHAGE) 1,000 mg tablet Take 1 tablet by mouth two times a day with meals. magnesium oxide (MAG-OX) 400 mg (241.3 mg magnesium) tablet Take 1 tablet by mouth two times a day. metoprolol succinate ER (TOPROL XL) 25 mg 24 hr tablet Take 1 tablet by mouth once daily. Incontinence Pad, Liner, Disp (POISE PADS) pads 1 pad five times a day. losartan (COZAAR) 25 mg tablet Take 1 tablet by mouth two times a day. apixaban (ELIQUIS) 5 mg tab(s) Take 1 tablet by mouth two times a day. nystatin (MYCOSTATIN) cream Apply to affected area two times a day. (Patient taking differently: Apply to affected area two times a day. [facility] 12/08/24: Course of therapy complete) melatonin 3 mg capsules Take 3 mg by mouth daily at bedtime. Last dose 12/07/24 for OR 12/12/24 dulaglutide (TRULICITY) 1.5 mg/0.5 mL pen injector Inject 1.5 mg subcutaneously one time a week. Inject once per week. Discard Pen After levothyroxine (SYNTHROID) 112 mcg tablet Take 1 tablet by mouth once daily. vit C,E-Zg-mnpfm-lutein-zeaxan (PRESERVISION AREDS-2) 250-90-40-1 mg Take 1 capsule by mouth twice daily with meals. CYANOCOBALAMIN/COBAMAMIDE (B12 SUBLINGUAL) Dissolve 1 tablet under the tongue once daily. Last dose 12/07/24 for OR 12/12/24 Cholecalciferol, Vitamin D3, 125 mcg (5,000 unit) cap Take 125 Units by mouth once daily. Last dose 12/07/24 for OR 12/12/24 blood sugar diagnostic (ACCU-CHEK ROBIN) test strip Use as instructed Lancets (ACCU-CHEK SOFTCLIX LANCETS) lancets Once daily. 250.40 Blood-Glucose Meter (ACCU-CHEK ROBIN PLUS METER) misc 1 Each once daily. multivitamin ORAL tablet Take 1 tablet by mouth once daily. Last dose 12/07/24 for OR 12/12/24 No current facility-administered medications for this visit. ALLERGIES: ALLERGIES Allergen Reactions Detrol [Tolterodine* Rash Penicillins Rash Tolerating piperacillin/tazobactam at [facility] in October 2024. AD PharmD PAST MEDICAL HISTORY Diagnosis Date Ambulates with cane Atrial fibrillation (HCC) 2023 Dr. Ring. Diagnosed when admitted for kidney stone. 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 Osborn. Has had kidney stones on right and left. 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 [facility] 03-01-2025 History of Present illness Narrative Patient presents with: Follow Up HPI: Patient presents today for office visit for acute follow up. Visual Hallucinations: - Experiencing visual hallucinations multiple times per night, described as seeing distinct people or figures upon waking. - Hallucinations are brief and disappear when addressed; no auditory component. - Occasional daytime hallucinations when waking from naps. - No associated seizures, tremors, or loss of bowel/bladder control. - No recent head trauma or falls. - No history of seizures. - No recent medication changes; currently taking Prozac and B12. - Denies anxiety, depression, or significant memory issues. - No chest pain or dyspnea. - No chronic numbness or weakness in extremities. - No new dizziness or vertigo. - No unusual headaches. - No significant vision changes; has an upcoming eye appointment in March. - No known allergies. - Scheduled for a colonoscopy in March. - Recent blood glucose readings around 137 mg/dL. - Wearing a heart monitor for a month to rule out AFib. MEDICATIONS: Current Outpatient Medications Medication Sig iv contrast (will be provided with radiology test) MRI Brain Inject, intravenously, once for 1 dose.No IV access, insert saline lock prior to beginning of sedation, infusion, injection of imaging exam.Discontinue saline lock post exam. If Pt. has a central line or IVAD, may access for administration according to line specific nursing protocol.Once exam is complete flush line and de-access according to line specific nursing protocol in the MR contrast administration guidelines link pravastatin (PRAVACHOL) 40 mg tablet Take 1 tablet by mouth daily at bedtime. FLUoxetine (PROZAC) 40 mg capsule Take 1 capsule by mouth once daily. metFORMIN (GLUCOPHAGE) 1,000 mg tablet Take 1 tablet by mouth two times a day with meals. magnesium oxide (MAG-OX) 400 mg (241.3 mg magnesium) tablet Take 1 tablet by mouth two times a day. metoprolol succinate ER (TOPROL XL) 25 mg 24 hr tablet Take 1 tablet by mouth once daily. Incontinence Pad, Liner, Disp (POISE PADS) pads 1 pad five times a day. losartan (COZAAR) 25 mg tablet Take 1 tablet by mouth two times a day. apixaban (ELIQUIS) 5 mg tab(s) Take 1 tablet by mouth two times a day. nystatin (MYCOSTATIN) cream Apply to affected area two times a day. (Patient taking differently: Apply to affected area two times a day. [facility] 12/08/24: Course of therapy complete) melatonin 3 mg capsules Take 3 mg by mouth daily at bedtime. Last dose 12/07/24 for OR 12/12/24 dulaglutide (TRULICITY) 1.5 mg/0.5 mL pen injector Inject 1.5 mg subcutaneously one time a week. Inject once per week. Discard Pen After levothyroxine (SYNTHROID) 112 mcg tablet Take 1 tablet by mouth once daily. vit C,S-Ne-qgpgx-lutein-zeaxan (PRESERVISION AREDS-2) 250-90-40-1 mg Take 1 capsule by mouth twice daily with meals. CYANOCOBALAMIN/COBAMAMIDE (B12 SUBLINGUAL) Dissolve 1 tablet under the tongue once daily. Last dose 12/07/24 for OR 12/12/24 Cholecalciferol, Vitamin D3, 125 mcg (5,000 unit) cap Take 125 Units by mouth once daily. Last dose 12/07/24 for OR 12/12/24 blood sugar diagnostic (ACCU-CHEK ROBIN) test strip Use as instructed Lancets (ACCU-CHEK SOFTCLIX LANCETS) lancets Once daily. 250.40 Blood-Glucose Meter (ACCU-CHEK ROBIN PLUS METER) misc 1 Each once daily. multivitamin ORAL tablet Take 1 tablet by mouth once daily. Last dose 12/07/24 for OR 12/12/24 No current facility-administered medications for this visit. ALLERGIES: ALLERGIES Allergen Reactions Detrol [Tolterodine* Rash Penicillins Rash Tolerating piperacillin/tazobactam at [facility] in October 2024. AD PharmD PAST MEDICAL HISTORY Diagnosis Date Ambulates with cane Atrial fibrillation (HCC) 2023 Dr. Ring. Diagnosed when admitted for kidney stone. 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 Osborn. Has had kidney stones on right and left. 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, S/P EBRT and HDR brachytherapy Obesity, unspecified Pressure sore on buttocks 11/2024 Pt treating on own with A&D Psoriasis Radiation 2005 for Cervical Cancer PAST SURGICAL HISTORY Procedure Laterality Date ARTHRP KNE CONDYLE&PLATU MEDIAL&LAT COMPARTMENTS 2010 left knee ARTHRP KNE CONDYLE&PLATU MEDIAL&LAT COMPARTMENTS 01/01/2015 Right knee BIOPSY BREAST OPEN INCISIONAL Bx of breast, incisional CHOLECYSTECTOMY 1987 Open cholecystectomy COLECTOMY PARTIAL W/ANASTOMOSIS 1999 Hemicolectomy COLONOSCOPY 10/2018 COLONOSCOPY FLX DX W/COLLJ SPEC WHEN PFRMD Colonoscopy COLONOSCOPY FLX DX W/COLLJ SPEC WHEN PFRMD 09/09/2005 Colonoscopy COLONOSCOPY FLX DX W/COLLJ SPEC WHEN PFRMD 11/15/2008 Colonoscopy COLONOSCOPY FLX DX W/COLLJ SPEC WHEN PFRMD 02/11/12, 03/2015 Repeat in 3 years (03/2018) COLONOSCOPY SCREENING 02/05/2022 DILATION & CURETTAGE DX&/THER NONOBSTETRIC 05/29/2011 Dilation & curettage IR NEPHROSTOMY TUBE INSERT RIGHT Right 10/23/2024 IR [facility] PAST SURGICAL HISTORY OF Rt port placement REMV CATARACT EXTRACAP,INSERT LENS Left 10/2021 REPAIR FIRST ABDOMINAL WALL HERNIA 2000 Hernia repair, incisional TOT ABD HYST W/PARAORTIC & PELVIC LYMPH NODE MARK 06/19/2011 Exploratory laparotomy with extensive lysis of adhesions, total abdominal hysterectomy, bilateral salpingo- oophorectomy, cystoscopy, and omentectomy. FAMILY HISTORY Problem Relation Age of Onset Diabetes Mother Genitourinary () Mother renal failure Cancer Father rectal cancer Hypertension Sister Diabetes Sister Cancer Sister lymphoma, leukemia Diabetes Brother Breast Cancer Paternal Aunt diagnosed in her late 50's still alive and well Thyroid Cancer Niece/Nephew other (? kidney cancer) Nephew Social History Tobacco Use Smoking status: Never Passive exposure: Never Smokeless tobacco: Never Vaping Use Vaping status: Never Used Substance Use Topics Alcohol use: Not Currently Drug use: No Reviewed current medications, allergies, past medical history, surgical history, family history and social history today. REVIEW OF SYSTEMS Constitutional: (+) sleep disturbance, (+) fatigue Head: (-) headaches Eyes: (+) vision changes Cardiovascular: (-) chest pain Respiratory: (-) shortness of breath Gastrointestinal: (-) bowel incontinence Genitourinary: (-) urinary incontinence Neurological: (+) visual hallucinations, (-) seizures, (-) tremor, (-) dizziness, (-) vertigo, (-) limb numbness, (-) limb weakness Psychiatric: (-) anxiety, (-) depressed mood, (-) auditory hallucinations, (-) memory loss VITALS: BP 138/85 Pulse 78 Wt 105.2 kg (232 lb) LMP 08/20/2005 SpO2 96% BMI 39.82 kg/m Last 4 Encounter Wt Readings: Date: Wt: 03/01/2025 105.2 kg (232 lb) 12/19/2024 103.9 kg (229 lb) 11/29/2024 104.3 kg (230 lb) 11/09/2024 105 kg (231 lb 7.7 oz) PHYSICAL EXAMINATION: GENERAL: NAD, alert and oriented. SKIN: Unremarkable, no rash or skin lesions. HEAD: Normocephalic. EYES: PERRLA, EOMI, conjunctiva clear. EARS: External ears normal, canals clear, TM's normal. NOSE/SINUSES: Nares normal. Septum midline. OROPHARYNX: Lips, mucosa, and tongue normal, good dentition. No oral lesions noted. NECK: Supple, no lymphadenopathy, normal thyroid, no carotid bruits. LUNGS: Clear to auscultation bilaterally, no wheezes/rhonchi/rales. HEART: Regular rate and rhythm, no murmurs. No ectopy. EXTREMITIES: Normal, no deformities, no skin discoloration, no edema. NEURO: Awake, alert and oriented x3, cranial nerves II-XII grossly intact, normal gait, no involuntary motions. Normal strength, normal sensation. ASSESSMENT/PLAN: 1. Other symptoms and signs involving the nervous system - ICD9: 781.99, ICD10: R29.818 (primary diagnosis) - one wonders about a sleep disorder. May require sleep testing or neurospych. She is seeing optho soon. Red flags for re-assessment reviewed with patient in detail. - get labs and MRI to rule out mass or stroke. - MRI BRAIN WO/W IVCON - IV CONTRAST (RADIOLOGY PROCEDURE) - NOT ON MAR - COMPLETE BLOOD COUNT AND DIFFERENTIAL - COMPREHENSIVE METABOLIC PANEL - THYROID STIMULATING HORMONE - VITAMIN B12 - FOLATE, SERUM - VITAMIN B1 (THIAMINE), WHOLE BLOOD - SYPHILIS TREPONEMAL W/REFLEX - CONSULT TO NEUROLOGY 2. Visual hallucination - ICD9: 368.16, ICD10: R44.1 -as above. - MRI BRAIN WO/W IVCON - IV CONTRAST (RADIOLOGY PROCEDURE) - NOT ON MAR - COMPLETE BLOOD COUNT AND DIFFERENTIAL - CONSULT TO NEUROLOGY 3. Sleep disorder - ICD9: 780.50, ICD10: G47.9 - CONSULT TO NEUROLOGY 4. Encounter for screening examination for other mental health and behavioral disorders - ICD9: V79.8, ICD10: Z13.39 - ANXIETY SCREENING 5. Recurrent major depression in partial remission - ICD9: 296.35, ICD10: F33.41 - appears stable. Doubt long standing med is causing. 6. Atrial fibrillation with RVR (HCC) - ICD9: 427.31, ICD10: I48.91 - per cardiology - COMPLETE BLOOD COUNT AND DIFFERENTIAL - COMPREHENSIVE METABOLIC PANEL - THYROID STIMULATING HORMONE 7. Primary hypertension - ICD9: 401.9, ICD10: I10 - stable. 8. 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 9. Malignant neoplasm of colon, unspecified part of colon (HCC) - ICD9: 153.9, ICD10: C18.9 - remote. Getting colonoscpy. - MRI BRAIN WO/W IVCON - IV CONTRAST (RADIOLOGY PROCEDURE) - NOT ON MAR - COMPLETE BLOOD COUNT AND DIFFERENTIAL 10. Type 2 diabetes mellitus without complication, without long-term current use of insulin (HCC) - ICD9: 250.00, ICD10: E11.9 - has been good. - HEMOGLOBIN A1C 11. Hypertriglyceridemia - ICD9: 272.1, ICD10: E78.1 - has been stable. 12. Endometrial cancer (HCC) - ICD9: 182.0, ICD10: C54.1 - stable. 13. Hypothyroidism, unspecified type - ICD9: 244.9, ICD10: E03.9 - follow labs. 14. Vitamin D deficiency - ICD9: 268.9, ICD10: E55.9 - follow labs. - VITAMIN D 25 HYDROXY Bobby Grady Recording using [employer] software for draft documentation of the visit was discussed with the patient/authorized procurement representative; all questions welcomed and answered. Patient/authorized procurement representative agreed to proceed documented in this encounter [facility] 02-06-2025 Telephone encounter Note Prescription Refill Information The patient has been identified by name and date of : Yes Caregiver verified no other encounters exist for this prescription request: Yes Caregiver confirmed with patient/requestor that no other refills are due, in the near future, with this provider at this time: Yes The last office visit in the department: 12/19/24 Does the patient have a future office visit with this provider/department: Yes, 04/04/25 Requested Prescriptions Pending Prescriptions Disp Refills pravastatin (PRAVACHOL) 40 mg tablet 90 tablet 3 Sig: Take 1 tablet by mouth daily at bedtime. Alexandro Wilkins LPN February 06, 2025 5:31 PM [facility] 02-06-2025 Miscellaneous Notes Prescription Refill Information The patient has been identified by name and date of : Yes Caregiver verified no other encounters exist for this prescription request: Yes Caregiver confirmed with patient/requestor that no other refills are due, in the near future, with this provider at this time: Yes The last office visit in the department: 12/19/24 Does the patient have a future office visit with this provider/department: Yes, 04/04/25 Requested Prescriptions Pending Prescriptions Disp Refills pravastatin (PRAVACHOL) 40 mg tablet 90 tablet 3 Sig: Take 1 tablet by mouth daily at bedtime. Alexandro Wilkins LPN February 06, 2025 5:31 PM documented in this encounter [facility] 02-06-2025 Telephone encounter Note Prescription Refill Information The patient has been identified by name and date of : Yes Caregiver verified no other encounters exist for this prescription request: Yes Caregiver confirmed with patient/requestor that no other refills are due, in the near future, with this provider at this time: Yes The last office visit in the department: 12/19/24 Does the patient have a future office visit with this provider/department: Yes: 04/04/25 Requested Prescriptions Pending Prescriptions Disp Refills FLUoxetine (PROZAC) 40 mg capsule 90 capsule 1 Sig: Take 1 capsule by mouth once daily. metFORMIN (GLUCOPHAGE) 1,000 mg tablet 180 tablet 1 Sig: Take 1 tablet by mouth two times a day with meals. Michael Zamora MA February 06, 2025 4:40 PM [facility] 02-06-2025 Miscellaneous Notes Prescription Refill Information The patient has been identified by name and date of : Yes Caregiver verified no other encounters exist for this prescription request: Yes Caregiver confirmed with patient/requestor that no other refills are due, in the near future, with this provider at this time: Yes The last office visit in the department: 12/19/24 Does the patient have a future office visit with this provider/department: Yes: 04/04/25 Requested Prescriptions Pending Prescriptions Disp Refills FLUoxetine (PROZAC) 40 mg capsule 90 capsule 1 Sig: Take 1 capsule by mouth once daily. metFORMIN (GLUCOPHAGE) 1,000 mg tablet 180 tablet 1 Sig: Take 1 tablet by mouth two times a day with meals. Michael Zamora MA February 06, 2025 4:40 PM documented in this encounter [facility] 02-02-2025 Telephone encounter Note Prescription Refill Information The patient has been identified by name and date of : Yes Caregiver verified no other encounters exist for this prescription request: Yes Caregiver confirmed with patient/requestor that no other refills are due, in the near future, with this provider at this time: No The last office visit in the department: 12/19/24 Does the patient have a future office visit with this provider/department: Yes Requested Prescriptions Pending Prescriptions Disp Refills magnesium oxide (MAG-OX) 400 mg (241.3 mg magnesium) tablet 60 tablet 0 Sig: Take 1 tablet by mouth two times a day. Maria Isabel Cota MA February 02, 2025 10:23 AM [facility] 02-02-2025 Miscellaneous Notes Prescription Refill Information The patient has been identified by name and date of : Yes Caregiver verified no other encounters exist for this prescription request: Yes Caregiver confirmed with patient/requestor that no other refills are due, in the near future, with this provider at this time: No The last office visit in the department: 12/19/24 Does the patient have a future office visit with this provider/department: Yes Requested Prescriptions Pending Prescriptions Disp Refills magnesium oxide (MAG-OX) 400 mg (241.3 mg magnesium) tablet 60 tablet 0 Sig: Take 1 tablet by mouth two times a day. Maria Isabel Cota MA February 02, 2025 10:23 AM documented in this encounter [facility] 01-30-2025 History of Present illness Narrative Radiology Service Progress Note PATIENT NAME: Aliyah Leach DATE OF SERVICE: January 30, 2025 TIME: 1:26 PM PATIENT IDENTITY VERIFICATION COMPLETED USING TWO (2) IDENTIFIERS: Name and Date of confirmed by patient verbally. FALL SCREENING: Has the patient had 2 falls in the last year or 1 fall with injury or currently using an Ambulatory Assistive Device (Walker, Cane, Wheelchair, Crutches, etc.)? No PATIENT GENDER DATA: Assigned female at . status: : No status: NO. PATIENT RELEVANT IMPLANT DATA REVIEWED: Not Applicable PATIENT PRESENTS WITH AN IMPLANTABLE OR ATTACHED SOCIAL WORKER HEALTH SERVICES: No RADIOLOGY DEPARTMENT: Mammography PERIPHERAL IV DATA: Not applicable SIGNED BY: Benedicto Prince January 30, 2025 1:26 PM documented in this encounter [facility] 01-30-2025 Note HNO ID: [id number] Author: ISA BAINS Mammo Tech Service: ? Author Type: Bulb Planter Type: Progress Notes Filed: 01/30/2025 13:27 Note Text: Radiology Service Progress Note PATIENT NAME: Aliyah Leach DATE OF SERVICE: January 30, 2025 TIME: 1:26 PM PATIENT IDENTITY VERIFICATION COMPLETED USING TWO (2) IDENTIFIERS: Name and Date of confirmed by patient verbally. FALL SCREENING: Has the patient had 2 falls in the last year or 1 fall with injury or currently using an Ambulatory Assistive Device (Walker, Cane, Wheelchair, Crutches, etc.)? No PATIENT GENDER DATA: Assigned female at . status: : No status: NO. PATIENT RELEVANT IMPLANT DATA REVIEWED: Not Applicable PATIENT PRESENTS WITH AN IMPLANTABLE OR ATTACHED SOCIAL WORKER HEALTH SERVICES: No RADIOLOGY DEPARTMENT: Mammography PERIPHERAL IV DATA: Not applicable SIGNED BY: Benedicto Prince January 30, 2025 1:26 PM [facility] 01-25-2025 Miscellaneous Notes Prescription Refill Information The patient has been identified by name and date of : Yes Caregiver verified no other encounters exist for this prescription request: Yes Caregiver confirmed with patient/requestor that no other refills are due, in the near future, with this provider at this time: Yes The last office visit in the department: 12/19/24 Does the patient have a future office visit with this provider/department: Yes Requested Prescriptions Pending Prescriptions Disp Refills metoprolol succinate ER (TOPROL XL) 25 mg 24 hr tablet 90 tablet 3 Sig: Take 1 tablet by mouth once daily. Radha San LPN January 25, 2025 9:07 AM documented in this encounter [facility] 01-25-2025 Telephone encounter Note Prescription Refill Information The patient has been identified by name and date of : Yes Caregiver verified no other encounters exist for this prescription request: Yes Caregiver confirmed with patient/requestor that no other refills are due, in the near future, with this provider at this time: Yes The last office visit in the department: 12/19/24 Does the patient have a future office visit with this provider/department: Yes Requested Prescriptions Pending Prescriptions Disp Refills metoprolol succinate ER (TOPROL XL) 25 mg 24 hr tablet 90 tablet 3 Sig: Take 1 tablet by mouth once daily. Radha San LPN January 25, 2025 9:07 AM [facility] 01-24-2025 Instructions Dimitris Robles APRN.[facility] - 01/24/2025 1:52 PM EDT Images from the original note were not included. Diet Changes Drink enough fluids each day. If you are not producing enough urine, your health care provider will recommend you drink at least 3 liters of liquid each day. This equals about 3 quarts (about ten 10-ounce glasses). This is a great way to lower your risk of forming new stones. Remember to drink more to replace fluids lost when you sweat from exercise or in hot weather. All fluids count toward your fluid intake. But it's best to drink mostly no-calorie or low-calorie drinks. This may mean limiting sugar-sweetened or alcoholic drinks. Knowing how much you drink during the day can help you understand how much you need to drink to produce 2.5 liters of urine. Use a household measuring cup to measure how much liquid you drink for a day or two. Drink from bottles or cans with the fluid ounces listed on the label. Keep a log, and add up the ounces at the end of the day or 24-hour period. Use this total to be sure you are reaching your daily target urine amount of at least 85 ounces (2.5 liters) of urine daily. Health care providers recommend people who form cystine stones drink more liquid than other stone formers. Usually 4 liters of liquid is advised to reduce cystine levels in your urine. Reduce the amount of salt in your diet. This tip is for people with high sodium intake and high urine calcium or cystine. Sodium can cause both urine calcium and cystine to be too high. Your health care provider may advise you to avoid foods that have a lot of salt. The Centers for Disease Control (CDC) and other health groups advise not eating more than 2,300 mg of salt per day. The following foods are high in salt and should be eaten in moderation: Cheese (all types) Most frozen foods and meats, including salty cured meats, deli meats (cold cuts), hot dogs, bratwurst and sausages Canned soups and vegetables Breads, bagels, rolls and baked goods Salty snacks, like chips and pretzels Bottled salad dressings and certain breakfast cereals Pickles and olives Casseroles, other mixed foods, pizza and lasagna Canned and bottled sauces Certain condiments, table salt and some spice blends Eat the recommended amount of calcium. If you take calcium supplements, make sure you aren't getting too much calcium. On the other hand make sure you aren't getting too little calcium either. Talk with your health care provider or dietitian about whether you need supplements. Good sources of calcium to choose from often are those low in salt. Eating calcium-rich foods or beverages with meals every day is a good habit. There are many non-dairy sources of calcium, such as calcium-fortified non-dairy milks. There are good choices, especially if you avoid dairy. You can usually get enough calcium from your diet without supplements if you eat uosdy-cs-edex servings of calcium-rich food. Many foods and beverages have calcium in them. Some foods and beverages that might be easy to include on a daily basis with meals are: Table of Foods Rich in Calcium Eat plenty of fruits and vegetables. Eating at least five servings of fruits and vegetables daily is recommended for all people who form kidney stones. Eating fruits and vegetables give you potassium, fiber, magnesium, antioxidants, phytate and citrate, all of which may help keep stones from forming. A serving means one piece of fruit or one potato or one cup of raw vegetables. For cooked vegetables, a serving is cup. If you are worried you may not be eating the right amount of fruits and vegetables, talk to your health care provider about what will be best for you. Eat foods with low oxalate levels. This recommendation is for patients with high urine oxalate. Eating calcium-rich foods (see table above) with meals can often control the oxalate level in your urine. Urinary oxalate is controlled because eating calcium lowers the oxalate level in your body. But if doing that does not control your urine oxalate, you may be asked to eat less of certain high-oxalate foods. Nearly all plant foods have oxalate, but a few foods contain a lot of it. These include spinach, rhubarb and almonds. It is usually not necessary to completely stop eating foods that contain oxalate. This needs to be determined individually and depends on why your oxalate levels are high in the first place. Eat less meat. If you make cystine or calcium oxalate stones and your urine uric acid is high, your health care provider may tell you to eat less animal protein. If your health care provider thinks your diet is increasing your risk for stones, he or she will tell you to eat less meat, fish, seafood, poultry, pork, roy, mutton and game meat than you eat now. This might mean eating these foods once or twice rather than two or three times a day, fewer times during the week, or eating smaller portions when you do eat them. The amount to limit depends on how much you eat now and how much your diet is affecting your uric acid levels. [email or web address].org/urol ogy-a-z/k/[email or web address]-stones#Prevention %[email or web address] documented in this encounter [facility] 01-24-2025 History of Present illness Narrative Images from the original note were not included. [facility] [place] [facility] [place] [facility] [address] PATIENT NAME: Aliyah Leach DATE OF : 1955 TODAY'S DATE: 01/11/2025 CHIEF COMPLAINT: Patient presents with: Kidney Stones: 4 week follow up Assessment & Plan: Assessment & Plan Vesicovaginal fistula - Previously discussed with Dr. Howell(01/2021). At that time urinary diversion was discussed to which patient opted not to proceed with. - Occurred after hysterectomy in 2011. - She does use overnight briefs and pads. Right ureteral calculus - Right Nephrostogram/ removal of right PNT 12/22/2024. Stone analysis calcium oxalate - Area where nephrostomy tube is healed without signs of infection, fluid accumulation, or abscess - Overall is doing well today. She denies symptoms of stone passage. - Order placed for KUB and ultrasound - Discussed stone prevention including dietary modification. If significant stone formation recommend obtaining 24-hour Litholink. Follow Up: Return for 3 months with KUB/US with DARLENE. HPI: Ms. Leach is a 70 year old female who presents to the office regarding ureteral calculi, vesicovaginal fistula Records have been reviewed. Overall is doing very well today. She denies any issues or concerns. She denies any symptoms of urinary tract infection or stone passage. Right Nephrostogram/ removal of right PNT 12/22/2024 Cystoscopy, right flexible ureteroscopy with laser lithotripsy and ureteral stone basket extraction, right ureteral stent removal 12/12/[address] Osborn Review of symptoms All pertinent positives and negatives per HPI as stated above. Social History: PAST MEDICAL HISTORY Diagnosis Date Ambulates with cane Atrial fibrillation (HCC) 2023 Dr. Ring. Diagnosed when admitted for kidney stone. 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 Osborn. Has had kidney stones on right and left. 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, S/P EBRT and HDR brachytherapy Obesity, unspecified Pressure sore on buttocks 11/2024 Pt treating on own with A&D Psoriasis Radiation 2005 for Cervical Cancer PAST SURGICAL HISTORY Procedure Laterality Date ARTHRP KNE CONDYLE&PLATU MEDIAL&LAT COMPARTMENTS 2010 left knee ARTHRP KNE CONDYLE&PLATU MEDIAL&LAT COMPARTMENTS 01/01/2015 Right knee BIOPSY BREAST OPEN INCISIONAL Bx of breast, incisional CHOLECYSTECTOMY 1987 Open cholecystectomy COLECTOMY PARTIAL W/ANASTOMOSIS 1999 Hemicolectomy COLONOSCOPY 10/2018 COLONOSCOPY FLX DX W/COLLJ SPEC WHEN PFRMD Colonoscopy COLONOSCOPY FLX DX W/COLLJ SPEC WHEN PFRMD 09/09/2005 Colonoscopy COLONOSCOPY FLX DX W/COLLJ SPEC WHEN PFRMD 11/15/2008 Colonoscopy COLONOSCOPY FLX DX W/COLLJ SPEC WHEN PFRMD 02/11/12, 03/2015 Repeat in 3 years (03/2018) COLONOSCOPY SCREENING 02/05/2022 DILATION & CURETTAGE DX&/THER NONOBSTETRIC 05/29/2011 Dilation & curettage IR NEPHROSTOMY TUBE INSERT RIGHT Right 10/23/2024 IR [facility] PAST SURGICAL HISTORY OF Rt port placement REMV CATARACT EXTRACAP,INSERT LENS Left 10/2021 REPAIR FIRST ABDOMINAL WALL HERNIA 2000 Hernia repair, incisional TOT ABD HYST W/PARAORTIC & PELVIC LYMPH NODE MARK 06/19/2011 Exploratory laparotomy with extensive lysis of adhesions, total abdominal hysterectomy, bilateral salpingo- oophorectomy, cystoscopy, and omentectomy. ALLERGIES Allergen Reactions Detrol [Tolterodine* Rash Penicillins Rash Tolerating piperacillin/tazobactam at [facility] in October 2024. AD PharmD Medications Current Outpatient Medications Medication Instructions apixaban (ELIQUIS) 5 mg, ORAL, 2 TIMES DAILY blood sugar diagnostic (ACCU-CHEK ROBIN) test strip Use as instructed Blood-Glucose Meter (ACCU-CHEK ROBIN PLUS METER) misc 1 each, Miscell. (Med.Supl.;Non-Drugs), DAILY Cholecalciferol (Vitamin D3) 125 Units, DAILY CYANOCOBALAMIN/COBAMAMIDE (B12 SUBLINGUAL) 1 tablet, DAILY dulaglutide (TRULICITY) 1.5 mg, SUBCUTANEOUS, 1 TIME WEEKLY, Inject once per week. Discard Pen After FLUoxetine (PROZAC) 40 mg, ORAL, DAILY Lancets (ACCU-CHEK SOFTCLIX LANCETS) lancets Once daily. 250.40 levothyroxine (SYNTHROID) 112 mcg, ORAL, DAILY losartan (COZAAR) 25 mg, ORAL, 2 TIMES DAILY magnesium oxide (MAG-OX) 400 mg, ORAL, 2 TIMES DAILY melatonin 3 mg, AT BEDTIME metFORMIN (GLUCOPHAGE) 1,000 mg, ORAL, 2 TIMES DAILY W/MEALS metoprolol succinate ER (TOPROL XL) 25 mg, ORAL, DAILY multivitamin ORAL tablet 1 tablet, DAILY nystatin (MYCOSTATIN) cream TOPICAL, 2 TIMES DAILY pravastatin (PRAVACHOL) 40 mg, ORAL, AT BEDTIME vit C,W-Kk-udlwa-lutein-zeaxan (PRESERVISION AREDS-2) 250-90-40-1 mg 1 capsule, ORAL, 2 TIMES DAILY W/MEALS Physical Exam LMP 08/20/2005 Constitutional: In no acute distress. Well appearing. Genitourinary: CVA: Nontender bilaterally. Genitourinary: Bladder nontender and nondistended. Skin: Area where nephrostomy tube placement is well-healed. Pertinent Labs: CBC: Lab Results Component Value Date WBC 12.73 (H) 12/19/2024 HCT 35.8 (L) 12/19/2024 MCV 87.5 12/19/2024 PLT 517 (H) 12/19/2024 CMP: Lab Results Component Value Date NA 137 12/19/2024 K 4.3 12/19/2024 CO2 22 12/19/2024 BUN 18 12/19/2024 ALT 12 (L) 10/31/2024 AST 10 10/31/2024 ALKPHOS 72 10/31/2024 URINE POC GLUCOSE UA (POCT) Negative 02/08/2021 BILIRUBIN UA (POCT) Small 02/08/2021 KETONE UA (POCT) Negative 02/08/2021 SPECIFIC GRAVITY UA (POCT) >=1.030 02/08/2021 HEMOGLOBIN/BLOOD UA (POCT) Trace-intact 02/08/2021 PH UA (POCT) 5.0 02/08/2021 PROTEIN UA (POCT) 30 02/08/2021 UROBILINOGEN UA (POCT) 0.2 02/08/2021 NITRITE UA (POCT) Negative 02/08/2021 LEUKOCYTES UA (POCT) Small 02/08/2021 COLOR UA (POCT) Yellow 02/08/2021 CLARITY UA (POCT) Clear 02/08/2021 Urine Culture: Culture Results - Past 1 Year Culture 10/23/2024 <10,000 CFU/ml Normal Urogenital Zhen 10/23/2024 No growth 5 days No growth 5 days 10/23/2024 >=100,000 CFU/ml Escherichia coli 10/23/2024 >=100,000 CFU/ml Escherichia coli 11/18/2024 >=100,000 CFU/ml Pseudomonas aeruginosa >=100,000 CFU/ml Enterococcus faecalis Susceptibility Tests - Past 1 Year Collected Organism Amikacin Ampicillin Ampicillin/Sulbact Aztreonam Cefazolin Cefepime Ceftriaxone Ciprofloxacin Ertapenem Gentamicin Meropenem Nitrofurantoin Piperacillin/Tazobac Tobramycin Trimeth sulfameth Vancomycin 10/23/24 Escherichia coli 10/23/24 Escherichia coli S S S S S S S S S S S S 11/18/24 Pseudomonas aeruginosa S I S I R S S S Enterococcus faecalis S S S Imaging: N/A Procedure: PVR: N/A An electronic signature was used to authenticate this note. Please note that portions of this chart were dictated using [employer] electronic voice recognition software. It is possible that typos and/or omissions and/or substitutions of words and/or phrases may exist, which may alter the intended meaning of the dictating provider. Dimitris Robles APRN [facility] documented in this encounter [facility] 01-24-2025 Note [facility] 01-23-2025 Note Addended by: JACQUE REVELES on: 01/23/2025 06:10 PM Modules accepted: Orders [facility] 01-23-2025 Miscellaneous Notes Addended by: JACQUE REVELES on: 01/23/2025 06:10 PM Modules accepted: Orders Colonoscopy order placed. Plan for Golytely prep with 2 day clear liquids please reach out to pt to advise thank you Jacque Reveles PA-C Patient calling in to ask for orders for colonoscopy Per [facility], 11/2024 - Recommended waiting for urology clearance before scheduling the next colonoscopy due to recent hospitalization and upcoming cystoscopy. - Plan to perform the colonoscopy in a hospital setting at a [facility] facility, pt prefers [place] vs [facility] - Discussed bowel prep: patient to hold Trulicity one week before the procedure, follow a two-day clear liquid diet, and use one gallon of Golytely. She had cystoscopy 12/22/24 Please advise Per patient, she needs a colonoscopy. The patient had an office visit on November 29 2024 and it was discussed at that time. documented in this encounter [facility] 01-23-2025 Instructions Jacque Reveles PA-C - 01/23/2025 6:07 PM EDT COLONOSCOPY BOWEL PREPARATION INSTRUCTIONS MiraLAX Your doctor has scheduled you for a colonoscopy. To have a successful colonoscopy, you must have a clean colon, that is empty. A clean colon allows your doctor to see the entire colon & diagnose issues like polyps or cancer. For doctors, a clean colon is like driving on a soni day; a dirty colon like driving in a storm. It is very important that you follow these instructions exactly, or your colonoscopy may not be as effective, could be canceled, and you may need to do the bowel prep and colonoscopy again. TRANSPORTATION REQUIREMENTS You are receiving IV sedation. For your safety, a responsible adult escort must accompany you to and from your procedure: Your adult escort MUST be present with you at check-in for your colonoscopy. Your adult escort MUST remain in the endoscopy area until you are discharged. Your adult escort MUST transport you home once you are discharged. You are NOT allowed to operate any form of transportation (i.e. drive a car, bicycle, etc) or leave the Endoscopy Center ALONE. It is not safe to do so. If you cannot meet these requirements, your procedure will be canceled. MEDICATION REQUIREMENTS For your safety, certain medications will need to be stopped or adjusted before you can have your procedure: BLOOD THINNERS: If you take blood thinners, such as Coumadin (warfarin), Plavix (clopidogrel), Ticlid (ticlopidine hydrochloride), Agrylin (anagrelide), Xarelto (Rivaroxaban), Pradaxa (Dabigatran), Eliquis (Apixaban), or Effient (Prasugrel), contact the physician who is prescribing these medications at least 2 weeks prior to your procedure to discuss any necessary adjustments. DIABETES: If you take medications for diabetes, your dosage may need to be adjusted. If you are being treated for diabetes with insulin, diabetic pills, or other injectable medications do not take your REGULAR dose after midnight on the day of your procedure. If you are taking any other types of insulin such as Lantus, Humalog, NPH (long-acting insulin), or 70/30 insulin, take half your normal dose the day before your procedure. DIABETES/WEIGHT MANAGEMENT: If you take medications for weight-loss, your dosage may need to be adjusted Contact the doctor who prescribes this medication for further instructions. If you take medications for weight-loss like semaglutide (Ozempic, Wegovy, Rybelsus), dulaglutide (Trulicity), liraglutide (Victoza, Saxenda), exenatide (Byetta, Bydureon), or lixisenatide (Adylyxin), stop your medication 1 week prior to your procedure. If you take medications like canagliflozin (Invokana), dapagliflozin (Farxiga, Forxiga), empagliflozin (Jardiance), stop your medication 3 days prior to your procedure. If you take ertugliflozin (Steglatro) stop your medication 4 days prior to your procedure. IRON: If you take iron pills, STOP them 1 week BEFORE your procedure, may resume after. OTHER MEDS: May take all other medications (including aspirin, antibiotics, water pills / diuretics like Lasix or Metolozone, blood pressure meds, etc.) at their usual scheduled time with water. DIET REQUIREMENTS The day before your colonoscopy, you may have a clear liquid diet (see below). The day of your colonoscopy, you may continue a clear liquid diet until 3 hours before your colonoscopy. Within 3 hours of your colonoscopy, take only any medications (as above) with a sip of water. Clear Liquid Diet Broth (chicken, beef or vegetable broth or bullion. Just the broth, no solids). Water Coffee or Tea (NO milk or creamer), but sugar and sugar substitutes are allowed. Clear liquids including clear, yellow, green, blue (NO red, NO orange, NO purple) Sodas / soft drinks; Gatorade or other sports drinks Fruit juice (strained; no-pulp); Sam-Aid or flavored drinks Plain Jell-O or other gelatins Popsicles or hard candy Bowel prep can work differently from person to person. Some people's bowels move slowly and they may need different instructions. Please see your doctor in office or virtually for personalized bowel prep instructions if you have: BOWEL PREPARATION (MIRALAX/GATORADE) Split Dosing Bowel Prep: This means drinking your bowel prep in two doses. Split dosing helps clean your colon better and makes it less likely that your procedure will be canceled. You will need to purchase the following (no prescriptions are needed): 64 ounces Gatorade, Propel, Crystal Lite or other noncarbonated clear liquid sports drink (NOT red, orange, or purple). Diabetic patients buy sugar-free, e.g. Gatorade G2 4 Dulcolax laxative tablets containing 5mg bisacodyl each (do not buy the stool softener) 8.3 oz MiraLAX (238g) powder or generic polyethylene glycol 3350 (find in laxative aisle) The day before your colonoscopy mix 64 oz of the sports drink with 8.3 oz MiraLAX (238 g) in a pitcher. Stir or shake until MiraLAX completely dissolved. Chill if desired. On the evening before your colonoscopy: 5 PM take 4 Dulcolax laxative tablets with water by mouth. 6 PM drink the first half of the Gatorade/MiraLAX solution Drink one 8-ounce glass every 15 minutes. Six hours before your colonoscopy, drink the second half of the solution. Drink one 8-ounce glass every 15 minutes. You may continue a clear liquid diet until 3 hours before your colonoscopy. Bowel prep can work differently from person to person. Some people's bowels move slowly and they may need different instructions. Please see your doctor in office or virtually for personalized bowel prep instructions if you have: Medical condition that needs special accommodations Had a poor bowel prep results or failed bowel prep attempts in the past. Had difficulty with anesthesia during the procedure. FREQUENTLY ASKED QUESTIONS Q: What if I suffer from constipation? A: Recommend taking extra laxatives to resolve your constipation days prior to entering the bowel prep day. Q: What if have had prior poor preps results in past? A: Contact your physician as you will likely need additional bowel prep instructions. Q: What if I have motility issues like Parkinson's, MS (multiple sclerosis), wheelchair dependent, etc.? or on medications that slow colonic transit times (narcotics, gabapentin, anticholinergic medications etc.) A: Contact your physician as you will likely need extra time and additional laxatives to complete your bowel prep. Q: What if I cannot drink large volume of liquid? A: Start your prep 2-3 hours earlier to allow yourself more time to complete the entire prep. Q: What if I had bariatric surgery? Do I still have to complete the entire prep? A: Yes, gastric bypass surgery involves the stomach & small bowel. You may need to drink smaller amounts, slower (may need more time to complete your bowel prep). Gastric bypass does not alter the length of your colon so you will need to complete the entire bowel prep, it may just take longer time to complete it. Q: What if I am on dialysis? A: Please consult your bevel mill operator prior to scheduling to get instructions pertinent to you. In general, dialysis patients take the Sandvineytely bowel prep and have the procedure same day of their dialysis (colonoscopy in AM, dialysis in PM). Q: How do I know if something is considered as clear liquid diet? A: If you can pour it in a glass and you can see through it, it is considered clear liquid Q: Can I eat nuts, seeds, beans, popcorn, dried fruits, vegetables & fruits that have skin peel? A: No, you will need to not eat these items starting 3 days prior to procedure. Q: Can I take Uber/Lyft/taxi/bus home? A: An adult MUST be present with you at check-in for your colonoscopy and remain in the endoscopy area until you are discharged. You can take Uber home only if this adult escort is with you at check in, remain in the endoscopy area until you are discharged, and takes the Uber with you to home. Q: Can I sleep it off here and drive myself home? A: No, you must have an adult with you at time of procedure check in, remain in the endoscopy center during your procedure, and drive you home. You cannot drive a vehicle after your procedure the rest of the day. Q: What if I can't finish my bowel prep? A: If you cannot complete your entire bowel prep, there is high likelihood that your colonoscopy will need to be rescheduled due to inadequate prep quality. COLONOSCOPY BOWEL PREPARATION INSTRUCTIONS GOLYTELY/NULYTELY/TRILYTE/COLYTE Your doctor has scheduled you for a colonoscopy. To have a successful colonoscopy, you must have a clean colon, that is empty. A clean colon allows your doctor to see the entire colon & diagnose issues like polyps or cancer. For doctors, a clean colon is like driving on a soni day; a dirty colon like driving in a storm. It is very important that you follow these instructions exactly, or your colonoscopy might not be as effective, could be canceled, and you may need to do the bowel prep and the colonoscopy again. TRANSPORTATION REQUIREMENTS You are receiving IV sedation. For your safety, a responsible adult escort must accompany you to and from your procedure: Your adult escort MUST be present with you at check-in for your colonoscopy. Your adult escort MUST remain in the endoscopy area until you are discharged. Your adult escort MUST transport you home once you are discharged. You are NOT allowed to operate any form of transportation (i.e. drive a car, bicycle, etc.) or leave the Endoscopy Center ALONE. It is not safe to do so. If you cannot meet these requirements, your procedure will be canceled. MEDICATION REQUIREMENTS For your safety, certain medications will need to be stopped or adjusted before you can have your procedure: BLOOD THINNERS: If you take blood thinners, such as Coumadin (warfarin), Plavix (clopidogrel), Ticlid (ticlopidine hydrochloride), Agrylin (anagrelide), Xarelto (Rivaroxaban), Pradaxa (Dabigatran), Eliquis (Apixaban), or Effient (Prasugrel), contact the physician who is prescribing these medications at least 2 weeks prior to your procedure to discuss any necessary adjustments. DIABETES: If you take medications for diabetes, your dosage may need to be adjusted. If you are being treated for diabetes with insulin, diabetic pills, or other injectable medications do not take your REGULAR dose after midnight on the day of your procedure. If you are taking any other types of insulin such as Lantus, Humalog, NPH (long-acting insulin), or 70/30 insulin, take half your normal dose the day before your procedure. DIABETES/WEIGHT MANAGEMENT: If you take medications for weight-loss, your dosage may need to be adjusted Contact the doctor who prescribes this medication for further instructions. If you take medications for weight-loss like semaglutide (Ozempic, Wegovy, Rybelsus), dulaglutide (Trulicity), liraglutide (Victoza, Saxenda), exenatide (Byetta, Bydureon), or lixisenatide (Adylyxin), stop your medication 1 week prior to your procedure. If you take medications like canagliflozin (Invokana), dapagliflozin (Farxiga, Forxiga), empagliflozin (Jardiance), stop your medication 3 days prior to your procedure. If you take ertugliflozin (Steglatro) stop your medication 4 days prior to your procedure. IRON: If you take iron pills, STOP them 1 week BEFORE your procedure, may resume after. OTHER MEDS: May take all other medications (including aspirin, antibiotics, water pills / diuretics like Lasix or Metolozone, blood pressure meds, etc.) at their usual scheduled time with a sip of water. DIET REQUIREMENTS The day before your colonoscopy, you may have a clear liquid diet (see below). The day of your colonoscopy, you may continue a clear liquid diet until 3 hours before your colonoscopy. Within 3 hours of your colonoscopy, take only any medications (as above) with a sip of water. Clear Liquid Diet Broth (chicken, beef or vegetable broth or bullion. Just the broth, no solids). Water Coffee or Tea (NO milk or creamer), but sugar and sugar substitutes are allowed. Clear liquids including clear, yellow, green, blue (NO red, NO orange, NO purple) Sodas / soft drinks Gatorade or other sports drinks Sam-Aid or flavored drinks Plain Jell-O or other gelatins Fruit juice (strained; no-pulp) Popsicles or hard candy BOWEL PREPARATION (GOLYTELY/NULYTELY/TRILYTE/COLYTE) Split Dosing Bowel Prep: This means drinking your bowel prep in two doses. Split dosing helps clean your colon better and makes it less likely that your procedure will be canceled. Fill your prescription for Golytely/Nulytely/Trilyte/Colyte: The afternoon before your colonoscopy, mix the solution and refrigerate. You may add the flavor pack (if present) that came with the bowel preparation. Do not add ice, sugar, or other flavorings to the solution. You will drink your prep in two doses, by several hours. On the evening before your colonoscopy: 1. 6 PM drink the first half of the bowel preparation solution. Drink one 8-ounce glass every 15 minutes. 2. Six hours before your colonoscopy, drink the second half of the solution. Drink one 8-ounce glass every 15 minutes. 3. You may continue a clear liquid diet until 3 hours before your colonoscopy. Bowel prep can work differently from person to person. Some people's bowels move slowly and they may need different instructions. Please see your doctor in office or virtually for personalized bowel prep instructions if you have: Medical condition that needs special accommodations Had a poor bowel prep results or failed bowel prep attempts in the past. Had difficulty with anesthesia during the procedure. FREQUENTLY ASKED QUESTIONS Q: What if I suffer from constipation? A: Recommend taking extra laxatives to resolve your constipation days prior to entering the bowel prep day. Q: What if have had prior poor preps results in past? A: Contact your physician as you will likely need additional bowel prep instructions. Q: What if I have motility issues like Parkinson's, MS (multiple sclerosis), wheelchair dependent, etc.? or on medications that slow bowel emptying (narcotics, gabapentin, anticholinergic medications etc.) A: Contact your physician as you will likely need extra time and additional laxatives to complete your bowel prep. Q: What if I cannot drink large volume of liquid? A: Start your prep 2-3 hours earlier to allow yourself more time to complete the entire prep. Q: What if I can't finish my bowel prep? A: If you cannot finish your entire bowel prep, it is likely that your colonoscopy will need to be rescheduled due to poor prep quality. Q: What if I had bariatric surgery? Do I still have to complete the entire prep? A: Yes, gastric bypass surgery involves the stomach & small bowel. You may need to drink smaller amounts, slower (may need more time to complete your bowel prep). Gastric bypass does not alter the length of your colon so you will need to complete the entire bowel prep, it may just take longer time to complete it. Q: What if I am on dialysis? A: Please consult your bevel mill operator prior to scheduling to get instructions pertinent to you. In general, dialysis patients take the Sandvineytely bowel prep and have the procedure same day of their dialysis (colonoscopy in AM, dialysis in PM). Q: How do I know if something is considered as clear liquid diet? A: If you can pour it in a glass and you can see through it, it is considered clear liquid Q: Can I eat nuts, seeds, beans, popcorn, dried fruits, vegetables & fruits that have skin peel? A: No, you will need to not eat these items starting 3 days prior to procedure. Q: Can I take Uber/Lyft/taxi/bus home? A: An adult MUST be present with you at check-in for your colonoscopy and remain in the endoscopy area until you are discharged. You can take Uber home only if this adult escort is with you at check in, remain in the endoscopy area until you are discharged, and takes the Uber with you to home. Q: Can I sleep it off here and drive myself home? A: No, you must have an adult with you at time of procedure check in, remain in the endoscopy center during your procedure, and drive you home. You cannot drive a vehicle after your procedure the rest of the day. documented in this encounter [facility] 01-23-2025 Telephone encounter Note Colonoscopy order placed. Plan for Golytely prep with 2 day clear liquids please reach out to pt to advise thank you Jacque Reveles PA-C [facility] 01-23-2025 Telephone encounter Note Patient calling in to ask for orders for colonoscopy Per DANGELO, 11/2024 - Recommended waiting for urology clearance before scheduling the next colonoscopy due to recent hospitalization and upcoming cystoscopy. - Plan to perform the colonoscopy in a hospital setting at a [facility] facility, pt prefers [place] vs [facility] - Discussed bowel prep: patient to hold Trulicity one week before the procedure, follow a two-day clear liquid diet, and use one gallon of Golytely. She had cystoscopy 12/22/24 Please advise [facility] 01-23-2025 Telephone encounter Note Per patient, she needs a colonoscopy. The patient had an office visit on November 29 2024 and it was discussed at that time. [facility] 12-26-2024 Telephone encounter Note Prescription Refill Information The patient has been identified by name and date of : Yes Caregiver verified no other encounters exist for this prescription request: Yes Caregiver confirmed with patient/requestor that no other refills are due, in the near future, with this provider at this time: Yes The last office visit in the department: 12/19/2024 Does the patient have a future office visit with this provider/department: Yes Requested Prescriptions Pending Prescriptions Disp Refills magnesium oxide (MAG-OX) 400 mg (241.3 mg magnesium) tablet 60 tablet 0 Sig: Take 1 tablet by mouth two times a day. metoprolol succinate ER (TOPROL XL) 25 mg 24 hr tablet 30 tablet 0 Sig: Take 1 tablet by mouth once daily. Amparo Scott LPN December 26, 2024 1:40 PM [facility] 12-26-2024 Miscellaneous Notes Prescription Refill Information The patient has been identified by name and date of : Yes Caregiver verified no other encounters exist for this prescription request: Yes Caregiver confirmed with patient/requestor that no other refills are due, in the near future, with this provider at this time: Yes The last office visit in the department: 12/19/2024 Does the patient have a future office visit with this provider/department: Yes Requested Prescriptions Pending Prescriptions Disp Refills magnesium oxide (MAG-OX) 400 mg (241.3 mg magnesium) tablet 60 tablet 0 Sig: Take 1 tablet by mouth two times a day. metoprolol succinate ER (TOPROL XL) 25 mg 24 hr tablet 30 tablet 0 Sig: Take 1 tablet by mouth once daily. Amparo Scott LPN December 26, 2024 1:40 PM documented in this encounter [facility] 12-23-2024 Miscellaneous Notes SITUATION: Custodial agency discharge visit completed today. only patient present during today's visit. patient reports the following: Allergies--reviewed Medications--reviewed current medications Falls--None BACKGROUND: Reason for Home Care: post kidney stone, urinary stent and neph tube, nex onset a fib ASSESSMENT: SN greeted at door by patient no DME and demonstrates stable gait. Patient appears in no acute distress. Patient/CG concerns verbalized today: pt reports that she saw Dr Grady earlier this week and had bloodwork drawn. She is concerned about an elevated white count and elevated platelet count, she is waiting to hear back from his office. Vitals (see flow sheet for details): stable SN findings today: Pt reports that she is feeling well but still get tired so easily. Pt did have R nephrostomy tube removed and site is clean and has a slight amount of moisture to site but this is serous and there is no signs of infection. SN suggested that she continue to cover for her showering but otherwise may leave open to air at this point. Pt will follow up with Dr Grady regarding her recent labs. She does not feel that she has an active UTI; could be as a result of the procedure but she feels that she is able to follo wup with his office and no longer needs home health. See intervention summary for education details and any skills performed. Specific SN discharge instructions: Continue to monitor previous drain site for any signs of infections such as drainage, redness, pain. Keep covered for showers until site is completely dry. Continue to monitor urine for color and notify nephrology for any concerns such as UTI sx, increase in blood present in urine, pain with urination or flank pain. Patient encouraged to take all medication as ordered, eat a well-balanced diet and follow up with all physician appointments. NOMNC: signed and present on EMR Discharged due to no further SN skilled need. Patient discharged from Home Care to: self-care RECOMMENDATION: Additional follow ups recommended: None Patient to follow up with Dr. Grady for additional medical questions/concerns. documented in this encounter [facility] 12-23-2024 Patient's home Note SITUATION: Custodial agency discharge visit completed today. only patient present during today's visit. patient reports the following: Allergies--reviewed Medications--reviewed current medications Falls--None BACKGROUND: Reason for Home Care: post kidney stone, urinary stent and neph tube, nex onset a fib ASSESSMENT: SN greeted at door by patient no DME and demonstrates stable gait. Patient appears in no acute distress. Patient/CG concerns verbalized today: pt reports that she saw Dr Grady earlier this week and had bloodwork drawn. She is concerned about an elevated white count and elevated platelet count, she is waiting to hear back from his office. Vitals (see flow sheet for details): stable SN findings today: Pt reports that she is feeling well but still get tired so easily. Pt did have R nephrostomy tube removed and site is clean and has a slight amount of moisture to site but this is serous and there is no signs of infection. SN suggested that she continue to cover for her showering but otherwise may leave open to air at this point. Pt will follow up with Dr Grady regarding her recent labs. She does not feel that she has an active UTI; could be as a result of the procedure but she feels that she is able to follo wup with his office and no longer needs home health. See intervention summary for education details and any skills performed. Specific SN discharge instructions: Continue to monitor previous drain site for any signs of infections such as drainage, redness, pain. Keep covered for showers until site is completely dry. Continue to monitor urine for color and notify nephrology for any concerns such as UTI sx, increase in blood present in urine, pain with urination or flank pain. Patient encouraged to take all medication as ordered, eat a well-balanced diet and follow up with all physician appointments. NOMNC: signed and present on EMR Discharged due to no further SN skilled need. Patient discharged from Home Care to: self-care RECOMMENDATION: Additional follow ups recommended: None Patient to follow up with Dr. Grady for additional medical questions/concerns. [facility] Work Phone: 12-19-2024 Note HNO ID: [id number] Author: BOBBY GRADY MD Service: ? Author Type: Physician Type: Progress Notes Filed: 12/19/2024 14:25 Note Text: Patient presents with: Follow Up HPI: Patient presents today for office visit for follow up from her last ov: Is feeling better but not perfect Stll fatigued. Had cystoscopy performed. Gets her nephrostomy tube removed soon. Therapy is over. Has one more vn visit. Using a cane. No falls. No chest pain or shortness of breath. No edema. No fever. Last A1c was 6.0 Has labs ordered per urology. Sugars have been good. Following with cardiology. They are considering ablation. Still on eliquis. No palpitations. Note was copied and pasted, without alteration from last ov: Admitted 10/23-11/10/24-TCM call completed. [place] [facility] appt is coming up. Urology is not seeing anybody yet. Has seen Dr. Osborn in [place]. They had said in the hospital her left kidney was small, however her gfr is great. Has stent in place. They will be following with them. [facility] is following with therapies. Overall feeling well. Living with her daughter currently. She is using a walker. They will determine when it is ok to move home. No chest pain or shortness of breath. No new edema. No palpitations. Bp and heart rate is good. Sugars have been great. No fever or chills. Tubes are clear. Blisters are doing well that were around her tubes. Appetite is good. Has labs and urine ordered by Dr Osborn MEDICATIONS: Current Outpatient Medications Medication Sig apixaban (ELIQUIS) 5 mg tab(s) Take 1 tablet by mouth two times a day. magnesium oxide (MAG-OX) 400 mg (241.3 mg magnesium) tablet Take 1 tablet by mouth two times a day. metoprolol succinate ER (TOPROL XL) 25 mg 24 hr tablet Take 1 tablet by mouth once daily. losartan (COZAAR) 25 mg tablet Take 1 tablet by mouth two times a day. melatonin 3 mg capsules Take 3 mg by mouth daily at bedtime. Last dose 12/07/24 for OR 12/12/24 FLUoxetine (PROZAC) 40 mg capsule Take 1 capsule by mouth once daily. metFORMIN (GLUCOPHAGE) 1,000 mg tablet Take 1 tablet by mouth two times a day with meals. dulaglutide (TRULICITY) 1.5 mg/0.5 mL pen injector Inject 1.5 mg subcutaneously one time a week. Inject once per week. Discard Pen After levothyroxine (SYNTHROID) 112 mcg tablet Take 1 tablet by mouth once daily. pravastatin (PRAVACHOL) 40 mg tablet Take 1 tablet by mouth daily at bedtime. vit C,M-Mg-nuowf-lutein-zeaxan (PRESERVISION AREDS-2) 250-90-40-1 mg Take 1 capsule by mouth twice daily with meals. CYANOCOBALAMIN/COBAMAMIDE (B12 SUBLINGUAL) Dissolve 1 tablet under the tongue once daily. Last dose 12/07/24 for OR 12/12/24 Cholecalciferol, Vitamin D3, 125 mcg (5,000 unit) cap Take 125 Units by mouth once daily. Last dose 12/07/24 for OR 12/12/24 multivitamin ORAL tablet Take 1 tablet by mouth once daily. Last dose 12/07/24 for OR 12/12/24 nystatin (MYCOSTATIN) cream Apply to affected area two times a day. (Patient taking differently: Apply to affected area two times a day. PACC 12/08/24: Course of therapy complete) blood sugar diagnostic (ACCU-CHEK ROBIN) test strip Use as instructed Lancets (ACCU-CHEK SOFTCLIX LANCETS) lancets Once daily. 250.40 Blood-Glucose Meter (ACCU-CHEK ROBIN PLUS METER) misc 1 Each once daily. No current facility-administered medications for this visit. ALLERGIES: ALLERGIES Allergen Reactions Detrol [Tolterodine* Rash Penicillins Rash Tolerating piperacillin/tazobactam at [facility] in October 2024. AD PharmD PAST MEDICAL HISTORY Diagnosis Date Ambulates with cane Atrial fibrillation (HCC) 2023 Dr. Ring. Diagnosed when admitted for kidney stone. 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 Osborn. Has had kidney stones on right and left. 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 [facility] 12-19-2024 History of Present illness Narrative Patient presents with: Follow Up HPI: Patient presents today for office visit for follow up from her last ov: Is feeling better but not perfect Stll fatigued. Had cystoscopy performed. Gets her nephrostomy tube removed soon. Therapy is over. Has one more vn visit. Using a cane. No falls. No chest pain or shortness of breath. No edema. No fever. Last A1c was 6.0 Has labs ordered per urology. Sugars have been good. Following with cardiology. They are considering ablation. Still on eliquis. No palpitations. Note was copied and pasted, without alteration from last ov: Admitted 10/23-11/10/24-TCM call completed. [facility] appt is coming up. Urology is not seeing anybody yet. Has seen Dr. Osborn in [place]. They had said in the hospital her left kidney was small, however her gfr is great. Has stent in place. They will be following with them. [facility] is following with therapies. Overall feeling well. Living with her daughter currently. She is using a walker. They will determine when it is ok to move home. No chest pain or shortness of breath. No new edema. No palpitations. Bp and heart rate is good. Sugars have been great. No fever or chills. Tubes are clear. Blisters are doing well that were around her tubes. Appetite is good. Has labs and urine ordered by Dr Osborn MEDICATIONS: Current Outpatient Medications Medication Sig apixaban (ELIQUIS) 5 mg tab(s) Take 1 tablet by mouth two times a day. magnesium oxide (MAG-OX) 400 mg (241.3 mg magnesium) tablet Take 1 tablet by mouth two times a day. metoprolol succinate ER (TOPROL XL) 25 mg 24 hr tablet Take 1 tablet by mouth once daily. losartan (COZAAR) 25 mg tablet Take 1 tablet by mouth two times a day. melatonin 3 mg capsules Take 3 mg by mouth daily at bedtime. Last dose 12/07/24 for OR 12/12/24 FLUoxetine (PROZAC) 40 mg capsule Take 1 capsule by mouth once daily. metFORMIN (GLUCOPHAGE) 1,000 mg tablet Take 1 tablet by mouth two times a day with meals. dulaglutide (TRULICITY) 1.5 mg/0.5 mL pen injector Inject 1.5 mg subcutaneously one time a week. Inject once per week. Discard Pen After levothyroxine (SYNTHROID) 112 mcg tablet Take 1 tablet by mouth once daily. pravastatin (PRAVACHOL) 40 mg tablet Take 1 tablet by mouth daily at bedtime. vit C,N-Tk-gdzrg-lutein-zeaxan (PRESERVISION AREDS-2) 250-90-40-1 mg Take 1 capsule by mouth twice daily with meals. CYANOCOBALAMIN/COBAMAMIDE (B12 SUBLINGUAL) Dissolve 1 tablet under the tongue once daily. Last dose 12/07/24 for OR 12/12/24 Cholecalciferol, Vitamin D3, 125 mcg (5,000 unit) cap Take 125 Units by mouth once daily. Last dose 12/07/24 for OR 12/12/24 multivitamin ORAL tablet Take 1 tablet by mouth once daily. Last dose 12/07/24 for OR 12/12/24 nystatin (MYCOSTATIN) cream Apply to affected area two times a day. (Patient taking differently: Apply to affected area two times a day. PACC 12/08/24: Course of therapy complete) blood sugar diagnostic (ACCU-CHEK ROBIN) test strip Use as instructed Lancets (ACCU-CHEK SOFTCLIX LANCETS) lancets Once daily. 250.40 Blood-Glucose Meter (ACCU-CHEK ROBIN PLUS METER) misc 1 Each once daily. No current facility-administered medications for this visit. ALLERGIES: ALLERGIES Allergen Reactions Detrol [Tolterodine* Rash Penicillins Rash Tolerating piperacillin/tazobactam at [facility] in October 2024. AD PharmD PAST MEDICAL HISTORY Diagnosis Date Ambulates with cane Atrial fibrillation (HCC) 2023 Dr. Ring. Diagnosed when admitted for kidney stone. 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 Osborn. Has had kidney stones on right and left. 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, S/P EBRT and HDR brachytherapy Obesity, unspecified Pressure sore on buttocks 11/2024 Pt treating on own with A&D Psoriasis Radiation 2005 for Cervical Cancer PAST SURGICAL HISTORY Procedure Laterality Date ARTHRP KNE CONDYLE&PLATU MEDIAL&LAT COMPARTMENTS 2010 left knee ARTHRP KNE CONDYLE&PLATU MEDIAL&LAT COMPARTMENTS 01/01/2015 Right knee BIOPSY BREAST OPEN INCISIONAL Bx of breast, incisional CHOLECYSTECTOMY 1987 Open cholecystectomy COLECTOMY PARTIAL W/ANASTOMOSIS 1999 Hemicolectomy COLONOSCOPY 10/2018 COLONOSCOPY FLX DX W/COLLJ SPEC WHEN PFRMD Colonoscopy COLONOSCOPY FLX DX W/COLLJ SPEC WHEN PFRMD 09/09/2005 Colonoscopy COLONOSCOPY FLX DX W/COLLJ SPEC WHEN PFRMD 11/15/2008 Colonoscopy COLONOSCOPY FLX DX W/COLLJ SPEC WHEN PFRMD 02/11/12, 03/2015 Repeat in 3 years (03/2018) COLONOSCOPY SCREENING 02/05/2022 DILATION & CURETTAGE DX&/THER NONOBSTETRIC 05/29/2011 Dilation & curettage IR NEPHROSTOMY TUBE INSERT RIGHT Right 10/23/2024 IR [place] PAST SURGICAL HISTORY OF Rt port placement REMV CATARACT EXTRACAP,INSERT LENS Left 10/2021 REPAIR FIRST ABDOMINAL WALL HERNIA 2000 Hernia repair, incisional TOT ABD HYST W/PARAORTIC & PELVIC LYMPH NODE MARK 06/19/2011 Exploratory laparotomy with extensive lysis of adhesions, total abdominal hysterectomy, bilateral salpingo- oophorectomy, cystoscopy, and omentectomy. FAMILY HISTORY Problem Relation Age of Onset Diabetes Mother Genitourinary () Mother renal failure Cancer Father rectal cancer Hypertension Sister Diabetes Sister Cancer Sister lymphoma, leukemia Diabetes Brother Breast Cancer Paternal Aunt diagnosed in her late 50's still alive and well Thyroid Cancer Niece/Nephew other (? kidney cancer) Nephew Social History Tobacco Use Smoking status: Never Passive exposure: Never Smokeless tobacco: Never Vaping Use Vaping status: Never Used Substance Use Topics Alcohol use: Not Currently Drug use: No Reviewed current medications, allergies, past medical history, surgical history, family history and social history today. REVIEW OF SYSTEMS All other reviewed and negative other than HPI. VITALS: BP 104/62 Pulse 83 Wt 103.9 kg (229 lb) LMP 08/20/2005 SpO2 98% BMI 39.31 kg/m Last 4 Encounter Wt Readings: Date: Wt: 12/19/2024 103.9 kg (229 lb) 11/29/2024 104.3 kg (230 lb) 11/09/2024 105 kg (231 lb 7.7 oz) 11/07/2024 107 kg (236 lb) PHYSICAL EXAMINATION: General appearance: Well appearing, alert, in no acute distress, well-hydrated, well nourished. Skin: Skin color, texture, turgor normal, no suspicious rashes or lesions Lungs: Lungs clear to auscultation. No wheezing, rhonchi, rales Heart: RRR without murmur, gallop, or rubs. No ectopy Abdomen: Normal abdominal exam, Abdomen soft, non-tender. Bowel sounds normal. No masses, organomegaly Extremities: Edema: none ASSESSMENT/PLAN: 1. Right ureteral calculus - ICD9: 592.1, ICD10: N20.1 (primary diagnosis) - doing much better. Red flags for re-assessment reviewed with patient in detail. 2. Diabetic polyneuropathy associated with type 2 diabetes mellitus (HCC) - ICD9: 250.60, 357.2, ICD10: E11.42 - stable. 3. Atrial fibrillation with RVR (HCC) - ICD9: 427.31, ICD10: I48.91 -follow with cardiology. 4. Kidney stone on left side - ICD9: 592.0, ICD10: N20.0 - as above. Red flags for re-assessment reviewed with patient in detail. Bobby Grady MD Keep next appt documented in this encounter [facility] 12-14-2024 Telephone encounter Note I have a call in to IR to get her scheduled for tube removal and a follow up appointment is also made. I tried to call her had to leave a message. [facility] 12-14-2024 Miscellaneous Notes I have a call in to IR to get her scheduled for tube removal and a follow up appointment is also made. I tried to call her had to leave a message. Surgery today Please schedule Right nephrostogram and nephrostomy tube removal in IR in one week Follow up with Dimitris De Leon 4 weeks with US documented in this encounter [facility] 12-12-2024 Telephone encounter Note Surgery today Please schedule Right nephrostogram and nephrostomy tube removal in IR in one week Follow up with Dimitris De Leon 4 weeks with US [facility] 12-12-2024 Note [facility] 12-09-2024 Note [facility] 12-09-2024 Miscellaneous Notes SITUATION: Custodial routine visit completed today. only patient present during today's visit. patient reports the following: Allergies--reviewed Medications--reviewed current medications Falls--None BACKGROUND: Reason for Home Care: R kidney stone, new onset A fib ASSESSMENT: SN greeted at door by patient no DME and demonstrates stable gait. Patient appears in no acute distress. Patient/CG concerns verbalized today: no new concerns Vitals (see flow sheet for details): stable SN findings today: Pt sitting in recliner for vs. She is going for her kidney stone procedure on 12/12 and anticipate that the neph tube and stent will be removed at that time. Pt denies any urinary concerns today, no flank pain. She feels that the pink tinge in depends is related to drinking red fluids as this is the only times that it happens. She plans to discuss this with urology and if a referral is needed for urology, she will request it then. this changed R flank drain dressing, site is clean and intact, no excessive crusting noted this week, tube remains capped. Pt denies any heart palpitations or heart racing and states that she saw cardiology this past week and amiodarone was d/c'd. She will be following up with a stress test and further recomendations from them. See intervention summary for education details. Patient demonstrated a need for further skilled SN services for chronic disease management & education, medication education and drain/tube care. Current Discharge plan: self-care RECOMMENDATION: Next visit to focus on (be specific): [facility] signed today fo [facility]probable agency dc next week. documented in this encounter [facility] 12-09-2024 Patient's home Note SITUATION: Custodial routine visit completed today. only patient present during today's visit. patient reports the following: Allergies--reviewed Medications--reviewed current medications Falls--None BACKGROUND: Reason for Home Care: R kidney stone, new onset A fib ASSESSMENT: SN greeted at door by patient no DME and demonstrates stable gait. Patient appears in no acute distress. Patient/CG concerns verbalized today: no new concerns Vitals (see flow sheet for details): stable SN findings today: Pt sitting in recliner for vs. She is going for her kidney stone procedure on 12/12 and anticipate that the neph tube and stent will be removed at that time. Pt denies any urinary concerns today, no flank pain. She feels that the pink tinge in depends is related to drinking red fluids as this is the only times that it happens. She plans to discuss this with urology and if a referral is needed for urology, she will request it then. this changed R flank drain dressing, site is clean and intact, no excessive crusting noted this week, tube remains capped. Pt denies any heart palpitations or heart racing and states that she saw cardiology this past week and amiodarone was d/c'd. She will be following up with a stress test and further recomendations from them. See intervention summary for education details. Patient demonstrated a need for further skilled SN services for chronic disease management & education, medication education and drain/tube care. Current Discharge plan: self-care RECOMMENDATION: Next visit to focus on (be specific): [facility] signed today fo rprobable agency dc next week. [facility] Work Phone: 12-09-2024 Note [facility] 12-09-2024 Note [facility] 12-07-2024 Telephone encounter Note Patient states she just got a message from our office stating she needs to complete blood work and an ECG prior to her surgery on 12/12/24. She was wondering if the ECG she had done on 10/31/24 was acceptable. She also had a BMP and CBC drawn last month. Please advise. Thanks Lazara Cortes LPN [facility] 12-07-2024 Miscellaneous Notes Patient states she just got a message from our office stating she needs to complete blood work and an ECG prior to her surgery on 12/12/24. She was wondering if the ECG she had done on 10/31/24 was acceptable. She also had a BMP and CBC drawn last month. Please advise. Thanks Lazara Cortes LPN documented in this encounter [facility] 12-05-2024 Evaluation note Diagnosis Onset Date Resolution Diabetes mellitus chronic November 222024 11:13am History of atrial fibrillation chronic December 05, 2024 11:13am HTN (hypertension) chronic December 05, 2024 11:13am Preoperative cardiovascular examination chronic December 05, 2024 11:13am Renal stone chronic December 05, 2 025 11:13am Diabetes mellitus chronic February 102024 12:59pm History of atrial fibrillation chronic February 10, 2025 12:59pm HTN (hypertension) chronic January 232024 12:59pm [facility] Work Phone: [phone] Miscellaneous Notes* SN Routine - Elvira Bell RN - 12/02/2024 12:31 PM EDT SITUATION: Custodial routine visit completed today. only patient present during today's visit. patient reports the following: Allergies--reviewed Medications--reviewed current medications Falls--None BACKGROUND: Reason for Home Care: R nephrostomy tube, renal calculus ASSESSMENT: SN greeted at door by patient no DME and demonstrates stable gait. Patient appears in no acute distress. Patient/CG concerns verbalized today: pt verbalizes that she has some irritation under her L breast. Vitals (see flow sheet for details): stable SN findings today: Pt abmulaating in the apt without a device, gait is steady today. R nephrostomy tube is intact, some crusting around insertions site that easily was removed with cleansing, no redness or drainage is noted. Tube remains capped. Pt denies any pain, she does states that one day she did have some pink drainage noted in her depends but this did not last and she did not go to ED for evaluation, it has not happened since. Pt reports that she is eating and drinking well. L breast irriation is not bright red. Pt reports that she tried the nystatin cream but it did not help. She usedbaby powder yesterday and today and this has helped. SN instructed pt to get some gold bridges powder and pad the area under her bra with dry soft cloth. SN demonstrated this to her today. Pt also continues to have some chafing to buttock crease area and is using the A&D ointment See intervention summary for education details. Patient demonstrated a need for further skilled SN services for wound/skin care and drain/tube care. Current Discharge plan: self-care RECOMMENDATION: Next visit to focus on (be specific): R neph tube care, assess skin under L breast. [facility] Patient's home Note* Routine - Elvira Bell RN - 12/02/2024 12:31 PM EDT SITUATION: Custodial routine visit completed today. only patient present during today's visit. patient reports the following: Allergies--reviewed Medications--reviewed current medications Falls--None BACKGROUND: Reason for Home Care: R nephrostomy tube, renal calculus ASSESSMENT: SN greeted at door by patient no DME and demonstrates stable gait. Patient appears in no acute distress. Patient/CG concerns verbalized today: pt verbalizes that she has some irritation under her L breast. Vitals (see flow sheet for details): stable SN findings today: Pt abmulaating in the apt without a device, gait is steady today. R nephrostomy tube is intact, some crusting around insertions site that easily was removed with cleansing, no redness or drainage is noted. Tube remains capped. Pt denies any pain, she does states that one day she did have some pink drainage noted in her depends but this did not last and she did not go to ED for evaluation, it has not happened since. Pt reports that she is eating and drinking well. L breast irriation is not bright red. Pt reports that she tried the nystatin cream but it did not help. She usedbaby powder yesterday and today and this has helped. SN instructed pt to get some gold bridges powder and pad the area under her bra with dry soft cloth. SN demonstrated this to her today. Pt also continues to have some chafing to buttock crease area and is using the A&D ointment See intervention summary for education details. Patient demonstrated a need for further skilled SN services for wound/skin care and drain/tube care. Current Discharge plan: self-care RECOMMENDATION: Next visit to focus on (be specific): R neph tube care, assess skin under L breast. [facility] Work Phone: 1(596) 756-987904-09-2025 Telephone encounter Note* Telephone Encounter - Asuncion Jenkins RN - 11/30/2024 10:28 AM EDT Patient requesting refill of Eliquis. The patient has been identified by name and date of : Yes Caregiver verified no other encounters exist for this prescription request: Yes Caregiver confirmed with patient/requestor that no other refills are due, in the near future, with this provider at this time: Yes The last office visit in the department: 11/07/2024 Does the patient have a future office visit with this provider/department: Yes 12/19/2024 Requested Prescriptions Pending Prescriptions Disp Refills apixaban (ELIQUIS) 5 mg tab(s) Sig: Take 1 tablet by mouth two times a day. Asuncion Jenkins RN [facility]04-09-2025 Miscellaneous Notes* Telephone Encounter - Asuncion Jenkins RN - 11/30/2024 10:28 AM EDT Patient requesting refill of Eliquis. The patient has been identified by name and date of : Yes Caregiver verified no other encounters exist for this prescription request: Yes Caregiver confirmed with patient/requestor that no other refills are due, in the near future, with this provider at this time: Yes The last office visit in the department: 11/07/2024 Does the patient have a future office visit with this provider/department: Yes 12/19/2024 Requested Prescriptions Pending Prescriptions Disp Refills apixaban (ELIQUIS) 5 mg tab(s) Sig: Take 1 tablet by mouth two times a day. Asuncion Jenkins RN [facility]25 NoteHNO ID: [id number] Author: JACQUE REVELES PA-C Service: ? Author Type: Physician Mental Health Aide Type: Progress Notes Filed: 11/29/2024 15:47 Note Text: CHIEF COMPLAINT: Patient presents with: Change In Bowel Habits: Consistent fecal urgency after eating.Seen in the ER 10/23/24 HPI: Aliyah Leach is a 69 year old female with PMHx positive for endometrial, cervical, colon CA who presents for Change In Bowel Habits (Consistent fecal urgency after eating.Seen in the ER 10/23/24). Surg hx positive for aspen, partial colectomy, abdominal wall hernia repair. Admitted to [facility] 10/2024 due to severe sepsis, right sided ureteral stone. S/P IR nephrostomy tube w/ stent. Scheduled for further intervention w/ cystoscopy later this month 12/12. Patient reports experiencing frequent bowel movements, often within 45 minutes of eating, described as flushing through with mucoid stools and very small solid stools, approximately the size of her little finger. She denies any hematochezia or melena. Since a recent hospitalization for sepsis, she notes that her bowel movements have become more normal, with stools resembling a Vance Stool Score of 5-6, described as loose and fluffy. She had a formed stool yesterday, which she refers to as her dump day, characterized by multiple bowel movements in a short period. She denies any abdominal pain, unintentional weight loss, nausea, or vomiting. She also denies regular heartburn, acid reflux, or indigestion. Patient has been compliant with Eliquis. She is no longer taking Lovaza and denies using any [id number] medications such as Advil, ibuprofen, Aleve, or Excedrin. Patient has a history of lactose intolerance and avoids dairy products, though she occasionally consumes a sundae. Past Diagnostic Results: - Colonoscopy (2021): Performed by Dr. Robert, recommended follow-up in [address] abd 10/2024 CT/Abdomen/Pelvis W IV Cont ONLY IMPRESSION: OBSTRUCTING 9 MM CALCULUS IN THE RIGHT URETEROPELVIC JUNCTION WITH MILD HYDRONEPHROSIS. GAS IN THE URINARY BLADDER, WHICH CAN BE SEEN IN INFECTION. Reading Location: [id number] Colonoscopy 2021 Post-Op/Post-Procedure Diagnosis: 4 mm hepatic flexure polyp removed Possible anastomosis at 15 cm in the sigmoid 8 to 10 mm clean-based ulcer in the rectum, possible stercoral ulcer Biopsies taken to rule out microscopic colitis and viral etiology for ulcer Component FINAL DIAGNOSIS A. Colon, hepatic flexure, polyp: - Colonic mucosa with no significant histopathologic changes (see comment). B. Colon, descending, biopsy: - Colonic mucosa with no significant histopathologic changes. C. Rectum, ulcer, biopsy: - Ulcerated colonic mucosa with mild glandular architectural distortion and fibrinopurulent debris with embedded fecal material suggestive of stercoral ulcer. Latest Ref Rng 10/30/2024 WBC 3.70 - 11.00 k/uL 11.14 (H) RBC 3.90 - 5.20 m/uL 4.06 Hemoglobin 11.5 - 15.5 g/dL 11.3 (L) Hematocrit 36.0 - 46.0 % 35.4 (L) MCV 80.0 - 100.0 fL 87.2 MCH 26.0 - 34.0 pg 27.8 MCHC 30.5 - 36.0 g/dL 31.9 RDW-CV 11.5 - 15.0 % 13.9 Platelet Count 150 - 400 k/uL 270 MPV 9.0 - 12.7 fL 11.0 NRBC /100 WBC 0.0 Absolute nRBC <0.01 k/uL <0.01 Neut% % 69.0 Abs Neut (ANC) 1.45 - 7.50 k/uL 7.69 (H) Lymph% % 17.0 Abs Lymph 1.00 - 4.00 k/uL 1.89 [place]% % 8.[address] Lucie <0.87 k/uL 0.89 (H) Eosin% % 1.0 Abs Eosin <0.46 k/uL 0.11 Baso% % 0.0 Abs Baso <0.11 k/uL 0.00 [place]% % 4.0 Myelo% % 1.0 Left Shift Present Platelet Estimate Adequate Red Cell Morph Reviewed: unremarkable Polychromasia Slight DTYPE Manual Magnesium 1.6 - 2.6 mg/dL 1.9 Phosphorus 2.5 - 4.9 mg/dL 3.6 Record Review: [facility] / Outside records reviewed. PAST MEDICAL HISTORY Diagnosis Date - Benign neoplasm of colon - Colon cancer (HCC) - Depression - Diabetes (HCC) type II - Diarrhea - Endometrial cancer (HCC) 2010 hysterectomy, b/l SPO, omentectomy, DERRELL, and chemo - Gall stones - Hernia - Hernia of unspecified site of abdominal cavity without mention of obstruction or gangrene - Hives - Hyperlipidemia - Hypertension - Hypothyroidism - Incontinence urine - Kidney stones - 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, S/P EBRT and HDR brachytherapy - Malignant neoplasm of colon, unspecified site 1999 Colon cancer - Obesity, unspecified - Psoriasis - Radiation 2005 for Cervical Cancer PAST SURGICAL HISTORY Procedure Laterality Date - ARTHRP KNE CONDYLEANDPLATU MEDIALANDLAT COMPARTMENTS 2010 left knee - ARTHRP CORAL CONDYLEANDPLATU MEDIALANDLAT COMPARTMENTS 01/01/2015 Right knee - BIOPSY BREAST OPEN INCISIONAL Bx of breast, incisional - CHOLECYSTECTOMY 1987 Open cholecystectomy - COLECTOMY PARTIAL W/ANASTOMOSIS 1999 Hemicolectomy - COLONOSCOPY (more content not included)...[facility] 11-29-2024 History of Present illness Narrative* Jacque Reveles PA-C - 11/29/2024 3:16 PM EDT CHIEF COMPLAINT: Patient presents with: Change In Bowel Habits: Consistent fecal urgency after eating.Seen in the ER 10/23/24 HPI: Aliyah Leach is a 69 year old female with PMHx positive for endometrial, cervical, colon CA who presents for Change In Bowel Habits (Consistent fecal urgency after eating.Seen in the ER 10/23/24). Surg hx positive for aspen, partial colectomy, abdominal wall hernia repair. Admitted to [facility] 10/2024 due to severe sepsis, right sided ureteral stone. S/P IR nephrostomy tubew/ stent. Scheduled for further intervention w/ cystoscopy later this month 12/12. Patient reports experiencing frequent bowel movements, often within 45 minutes of eating, describedas flushing through with mucoid stools and very small solid stools, approximately the size of herlittle finger. She denies any hematochezia or melena. Since a recent hospitalization for sepsis, she notes that her bowel movements have become more normal, with stools resembling a Vance Stool Score of 5-6, described as loose and fluffy. She had a formed stool yesterday, which she refers to as her dump day, characterized by multiple bowel movements in a short period. She denies any abdominalpain, unintentional weight loss, nausea, or vomiting. She also denies regular heartburn, acid reflux, or indigestion. Patient has been compliant with Eliquis. She is no longer taking Lovaza and denies using any xger-ojy-lqonsry medications such as Advil, ibuprofen, Aleve, or Excedrin. Patient has a history of lactose intolerance and avoids dairy products, though she occasionally consumes a sundae. Past Diagnostic Results: - Colonoscopy (2021): Performed by Dr. Robert, recommended follow-up in [address] abd 10/2024 CT/Abdomen/Pelvis W IV Cont ONLY IMPRESSION: OBSTRUCTING 9 MM CALCULUS IN THE RIGHT URETEROPELVIC JUNCTION WITH MILD HYDRONEPHROSIS. GAS IN THE URINARY BLADDER, WHICH CAN BE SEEN IN INFECTION. Reading Location: [id number] Colonoscopy 2021 Post-Op/Post-Procedure Diagnosis: 4 mm hepatic flexure polyp removed Possible anastomosis at 15 cm in the sigmoid 8 to 10 mm clean-based ulcer in the rectum, possible stercoral ulcer Biopsies taken to rule out microscopic colitis and viral etiology for ulcer Component FINAL DIAGNOSIS A. Colon, hepatic flexure, polyp: - Colonic mucosa with no significant histopathologic changes (see comment). B. Colon, descending, biopsy: - Colonic mucosa with no significant histopathologic changes. C. Rectum, ulcer, biopsy: - Ulcerated colonic mucosa with mild glandular architectural distortion and fibrinopurulent debris with embedded fecal material suggestive of stercoral ulcer. Latest Ref Rng 10/30/2024 WBC 3.70 - 11.00 k/uL 11.14 (H) RBC 3.90 - 5.20 m/uL 4.06 Hemoglobin 11.5 - 15.5 g/dL 11.3 (L) Hematocrit 36.0 - 46.0 % 35.4 (L) MCV 80.0 - 100.0 fL 87.2 MCH 26.0 - 34.0 pg 27.8 MCHC 30.5 - 36.0 g/dL 31.9 RDW-CV 11.5 - 15.0 % 13.9 Platelet Count 150 - 400 k/uL 270 MPV 9.0 - 12.7 fL 11.0 NRBC /100 WBC 0.0 Absolute nRBC <0.01 k/uL <0.01 Neut% % 69.0 Abs Neut (ANC) 1.45 - 7.50 k/uL 7.69 (H) Lymph% % 17.0 Abs Lymph 1.00 - 4.00 k/uL 1.89 [place]% % 8.[address] [place] <0.87 k/uL 0.89 (H) Eosin% % 1.0 Abs Eosin <0.46 k/uL 0.11 Baso% % 0.0 Abs Baso <0.11 k/uL 0.00 [place]% % 4.0 Myelo% % 1.0 Left Shift Present Platelet Estimate Adequate Red Cell Morph Reviewed: unremarkable Polychromasia Slight DTYPE Manual Magnesium 1.6 - 2.6 mg/dL 1.9 Phosphorus 2.5 - 4.9 mg/dL 3.6 Record Review: [facility] / Outside records reviewed. 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, S/P EBRT and HDR brachytherapy Malignant neoplasm of colon, unspecified site 1999 Colon cancer Obesity, unspecified Psoriasis Radiation 2005 for Cervical Cancer PAST SURGICAL HISTORY Procedure Laterality Date ARTHRP KNE CONDYLE&PLATU MEDIAL&LAT COMPARTMENTS 2010 left knee ARTHRP KNE CONDYLE&PLATU MEDIAL&LAT COMPARTMENTS 01/01/2015 Right knee BIOPSY BREAST OPEN INCISIONAL Bx of breast, incisional CHOLECYSTECTOMY 1987 Open cholecystectomy COLECTOMY PARTIAL W/ANASTOMOSIS 1999 Hemicolectomy COLONOSCOPY 10/2018 COLONOSCOPY FLX DX W/COLLJ SPEC WHEN PFRMD Colonoscopy COLONOSCOPY FLX DX W/COLLJ SPEC WHEN PFRMD 09/09/2005 Colonoscopy COLONOSCOPY FLX DX W/COLLJ SPEC WHEN PFRMD 11/15/2008 Colonoscopy COLONOSCOPY FLX DX W/COLLJ SPEC WHEN PFRMD 02/11/12, 03/2015 Repeat in 3 years (03/2018) COLONOSCOPY SCREENING 02/05/2022 DILATION & CURETTAGE DX&/THER NONOBSTETRIC 05/29/2011 Dilation & curettage PAST SURGICAL HISTORY OF Rt port placement REMV CATARACT EXTRACAP,INSERT LENS Left 10/2021 REPAIR FIRST ABDOMINAL WALL HERNIA 2000 Hernia repair, incisional TOT ABD HYST W/PARAORTIC & PELVIC LYMPH NODE MARK 06/19/2011 Exploratory laparotomy with extensive lysis of adhesions, total abdominal hysterectomy, bilateral salpingo- oophorectomy, cystoscopy, and omentectomy. Allergies: ALLERGIES Allergen Reactions Detrol [Tolterodine* Rash Penicillins Rash Tolerating piperacillin/tazobactam at [facility] in October 2024. AD PharmD Medications: magnesium oxide (MAG-OX) 400 mg (241.3 mg magnesium) tablet Take 1 tablet by mouth two times a day. metoprolol succinate ER (TOPROL XL) 25 mg 24 hr tablet Take 1 tablet by mouth once daily. nystatin (MYCOSTATIN) cream Apply to affected area two times a day. losartan (COZAAR) 25 mg tablet Take 1 tablet by mouth two times a day. apixaban (ELIQUIS) 5 mg tab(s) Take 1 tablet by mouth two times a day. amiodarone (PACERONE) 200 mg tablet Take 1 tablet by mouth two times a day. Patient should start onNovember 03, 2024. melatonin 3 mg capsules Take 3 mg by mouth daily at bedtime. FLUoxetine (PROZAC) 40 mg capsule Take 1 capsule by mouth once daily. metFORMIN (GLUCOPHAGE) 1,000 mg tablet Take 1 tablet by mouth two times a day with meals. dulaglutide (TRULICITY) 1.5 mg/0.5 mL pen injector Inject 1.5 mg subcutaneously one time a week. Inject once per week. Discard Pen After levothyroxine (SYNTHROID) 112 mcg tablet Take 1 tablet by mouth once daily. pravastatin (PRAVACHOL) 40 mg tablet Take 1 tablet by mouth daily at bedtime. vit C,L-Br-qwbda-lutein-zeaxan (PRESERVISION AREDS-2) 250-90-40-1 mg Take 1 capsule by mouth twice daily with meals. lactobacillus comb no.10 (PROBIOTIC) 20 billion cell cap Take 1 capsule by mouth once daily. Patient should start on November 02, 2024. CYANOCOBALAMIN/COBAMAMIDE (B12 SUBLINGUAL) Dissolve 1 tablet under the tongue once daily. Cholecalciferol, Vitamin D3, 125 mcg (5,000 unit) cap Take 125 Units by mouth once daily. blood sugar diagnostic (ACCU-CHEK ROBIN) test strip Use as instructed Lancets (ACCU-CHEK SOFTCLIX LANCETS) lancets Once daily. 250.40 Blood-Glucose Meter (ACCU-CHEK ROBIN PLUS METER) misc 1 Each once daily. multivitamin ORAL tablet Take 1 tablet by mouth once daily. omega-3 acid ethyl esters (LOVAZA) 1 gram capsule Take 2 g by mouth two times a day. (Patient not taking: Reported on 11/07/2024) FAMILY HISTORY Problem Relation Age of Onset Diabetes Mother Genitourinary () Mother renal failure Cancer Father rectal cancer Hypertension Sister Diabetes Sister Cancer Sister lymphoma, leukemia Diabetes Brother Breast Cancer Paternal Aunt diagnosed in her late 50's still alive and well Thyroid Cancer Niece/Nephew other (? kidney cancer) Nephew Employer And Job Title: [employer] ([place]) Years Of Education Completed: 14 years Marital Status: with 3 children Social History Tobacco Use Smoking status: Never Smokeless tobacco: Never Vaping Use Vaping status: Never Used Substance Use Topics Alcohol use: Yes Comment: rarely Drug use: No Review of Systems: Review of Systems Constitutional: Positive for appetite change and fatigue. HENT: Positive for mouth sores. Respiratory: Positive for shortness of breath. Gastrointestinal: Change in bowel habits All other systems reviewed and are negative. Are you taking any blood thinners? Yes, Eliquis Physical Examination: BP 118/72 Pulse 72 Ht 162.6 cm (5' 4) Wt 104.3 kg (230 lb) LMP 08/20/2005 SpO2 98% BMI39.48 kg/m Physical Exam Constitutional: General: She is not in acute distress. Appearance: Normal appearance. She is obese. She is not ill-appearing, toxic- appearing or diaphoretic. HENT: Head: Normocephalic and atraumatic. Nose: Nose normal. Eyes: General: No scleral icterus. Right eye: No discharge. Left eye: No discharge. Extraocular Movements: Extraocular movements intact. Conjunctiva/sclera: Conjunctivae normal. Pupils: Pupils are equal, round, and reactive to light. Cardiovascular: Rate and Rhythm: Normal rate and regular rhythm. Pulses: Normal pulses. Heart sounds: Normal heart sounds. No murmur heard. No friction rub. No gallop. Pulmonary: Effort: No respiratory distress. Breath sounds: Normal breath sounds. No stridor. No wheezing, rhonchi or rales. Chest: Chest wall: No tenderness. Abdominal: General: Abdomen is flat. Bowel sounds are normal. There is no distension. Palpations: Abdomen is soft. There is no mass. Tenderness: There is no abdominal tenderness. There is no right CVA tenderness, left CVA tenderness, guarding or rebound. Hernia: No hernia is present. Musculoskeletal: General: Normal range of motion. Cervical back: Normal range of motion and neck supple. Comments: Ambulates with cane Skin: General: Skin is warm and dry. Neurological: General: No focal deficit present. Mental Status: She is alert and oriented to person, place, and time. Psychiatric: Mood and Affect: Mood normal. Behavior: Behavior normal. 1. Personal history of colon cancer (Z85.038) Patient has a history of colon cancer and has undergone previous intestinal surgeries, including a partial colectomy. Recent bowel habits have been fluctuating between loose and formed stools, with improvement noted after recent hospitalization for sepsis. No current abdominal pain, nausea, or vomiting. Patient is compliant with Eliquis and has a known lactose intolerance. - Recommended waiting for urology clearance before scheduling the next colonoscopy due to recent hospitalization and upcoming cystoscopy. - Plan to perform the colonoscopy in a hospital setting at a [facility] facility, pt prefers [place] vs [facility] - Discussed bowel prep: patient to hold Trulicity one week before the procedure, follow a two-day clear liquid diet, and use one gallon of Golytely. - Advised patient to monitor bowel habits and report any significant changes or persistent diarrhea. Could consider trial of Colestipol/Welchol if any returning sx - Provided education on dietary modifications to minimize bowel irritation, including limiting high-fat dairy and fibrous foods. - Patient to maintain communication with me for scheduling the colonoscopy once cleared by urology. I spent a total of 20 minutes on the date of the service which included preparing to see the patient, omli-mg-srmr patient care, completing clinical documentation, obtaining and/or reviewing separately obtained history, performing a medically appropriate examination, counseling and educating the pat ient/family/caregiver, ordering medications, tests, or procedures, communicating with other HCPs (not separately reported), independently interpreting results (not separately reported), communicatingresults to the patient/family/caregiver, and care coordination (not separately reported). Jacque Reveles PA-C November 29, 2024 3:47 PM documented in this encounterKind[facility]04-08-2025 Telephone encounter Note * Telephone Encounter - Jacqueline Apodaca LPN - 11/29/2024 12:59 PM EDT Pt notified of dr's recommendation. Pt voiced understanding. Jacqueline Apodaca LPN [facility]04-08-2025 Miscellaneous Notes* Telephone Encounter - Jacqueline Apodaca LPN - 11/29/2024 12:59 PM EDT Pt notified of dr's recommendation. Pt voiced understanding. Jacqueline Apodaca LPN * Telephone Encounter - Bobby Grady MD - 11/29/2024 11:55 AM EDT Given the issues with her last culture. It was not fully sensitive to any oral antibiotics. Would recommend er eval. May need admitted or evaluated if having gross hematuIA * Telephone Encounter - Jacqueline Apodaca LPN - 11/29/2024 10:41 AM EDT Pt calls to report she has had a pink bloody tinge in urine x 4 days. Pt reports she was on atb (Cipro x 7 days) at the time so thought after she finished atb the blood would be gone but this is not the case. Pt reports she does have a kidney stone (surgery scheduled for 12/12/24). Pt reports she has some intermittent cramping but no pain, fever. Pt is asking if she should do another round of atb or what would provider recommend. Jacqueline Apodaca LPN documented in this encounterKindred Healthcare04-08-2025 Telephone encounter Note * Telephone Encounter - Bobby Grady MD - 11/29/2024 11:55 AM EDT Given the issues with her last culture. It was not fully sensitive to any oral antibiotics. Would recommend er eval. May need admitted or evaluated if having gross hematuIA [facility]04-08-2025 Telephone encounter Note* Telephone Encounter - Jacqueline Apodaca LPN - 11/29/2024 10:41 AM EDT Pt calls to report she has had a pink bloody tinge in urine x 4 days. Pt reports she was on atb (Cipro x 7 days) at the time so thought after she finished atb the blood would be gone but this is not the case. Pt reports she does have a kidney stone (surgery scheduled for 12/12/24). Pt reports she has some intermittent cramping but no pain, fever. Pt is asking if she should do another round of atb or what would provider recommend. Jacqueline Apodaca LPN [facility]04-04-2025 Miscellaneous Notes* SN Routine - Elvira Bell RN - 11/25/2024 1:56 PM EDT SITUATION: Custodial routine visit completed today. only patient present during today's visit. patient reports the following: Allergies--reviewed Medications--reviewed current medications Falls--None BACKGROUND: Reason for Home Care: R nephrostomy tube, new onset a fib ASSESSMENT: SN greeted at door by patient no DME and demonstrates stable gait. Patient appears in no acute distress. Patient/CG concerns verbalized today: pt verbalizes that the yeast sx to groin area has resolved but now has some redness under L breast. Still having issues with irritation to buttocks. Vitals (see flow sheet for details): stable SN findings today: Pt ambulating in her apt. See above report, pt also states that she has not rec'd refills on the metoprolol or Mg. SN contacted Dr Grady's office. SN provided neph tube care, pt is unable to reach the area. SN notes moderate amount of crusting around insertion tube site but no drainage or redness noted. Site cleansed and new foam dressing applied. SN notes that L buttock has a superficial open area; pt using A&D ointment and pressure relief to treat. Pt scheduled for blasting kidney stones on 12/12; will need weekly SN vs for neph tube dressing change until tube removed. No episodes of palpitations, she states that she did have one morning that she was feeling dizzy and nauseated with a slight headache and realized that she did not take her meds the night before, unsuree if this would be related. See intervention summary for education details. Patient demonstrated a need for further skilled SN services for chronic disease management & education, medication education and drain/tube care. Current Discharge plan: self-care and family support RECOMMENDATION: Next visit to focus on (be specific): neph tube dressing change, wounds check, CP assessment and instruction. documented in this encounterKindred Healthcare04-04-2025 Patient's home Note* SN Routine - Elvira Bell RN - 11/25/2024 1:56 PM EDT SITUATION: Custodial routine visit completed today. only patient present during today's visit. patient reports the following: Allergies--reviewed Medications--reviewed current medications Falls--None BACKGROUND: Reason for Home Care: R nephrostomy tube, new onset a fib ASSESSMENT: SN greeted at door by patient no DME and demonstrates stable gait. Patient appears in no acute distress. Patient/CG concerns verbalized today: pt verbalizes that the yeast sx to groin area has resolved but now has some redness under L breast. Still having issues with irritation to buttocks. Vitals (see flow sheet for details): stable SN findings today: Pt ambulating in her apt. See above report, pt also states that she has not rec'd refills on the metoprolol or Mg. SN contacted Dr Grady's office. SN provided neph tube care, pt is unable to reach the area. SN notes moderate amount of crusting around insertion tube site but no drainage or redness noted. Site cleansed and new foam dressing applied. SN notes that L buttock has a superficial open area; pt using A&D ointment and pressure relief to treat. Pt scheduled for blasting kidney stones on 12/12; will need weekly SN vs for neph tube dressing change until tube removed. No episodes of palpitations, she states that she did have one morning that she was feeling dizzy and nauseated with a slight headache and realized that she did not take her meds the night before, unsuree if this would be related. See intervention summary for education details. Patient demonstrated a need for further skilled SN services for chronic disease management & education, medication education and drain/tube care. Current Discharge plan: self-care and family support RECOMMENDATION: Next visit to focus on (be specific): neph tube dressing change, wounds check, CP assessment and instruction. [facility] Work Phone: 1(516) 538-625304-01-2025 Telephone encounter Note* Telephone Encounter - Leila Kan MA - 11/22/2024 12:46 PM EDT Patient informed and verbalized understanding. Leila Kan MA [facility]04-01-2025 Miscellaneous Notes* Telephone Encounter - Leila Kan MA - 11/22/2024 12:46 PM EDT Patient informed and verbalized understanding. Leila Kan MA * Telephone Encounter - Bobby Grady MD - 11/22/2024 12:20 PM EDT Final culture came in. One of the bacteria is not tested. The other is mildly susceptible to cipro which is the only oral antibiotic it responds too. Finish cipro. If symptoms worsen or don't improve, let us know documented in this encounterKindred Healthcare04-01-2025 Telephone encounter Note * Telephone Encounter - Bobby Grady MD - 11/22/2024 12:20 PM EDT Final culture came in. One of the bacteria is not tested. The other is mildly susceptible to cipro which is the only oral antibiotic it responds too. Finish cipro. If symptoms worsen or don't improve, let us know [facility]03-31-2025 Telephone encounter Note* Telephone Encounter - Jennifer Frias RN - 11/21/2024 11:34 AM EDT The patient has been identified by name and date of : Yes Caregiver verified no other encounters exist for this prescription request: Yes Caregiver confirmed with patient/requestor that no other refills are due, in the near future, with this provider at this time: Yes The last office visit in the department: 11/07/2024 Does the patient have a future office visit with this provider/department: Yes 12/19/2024 Requested Prescriptions Pending Prescriptions Disp Refills magnesium oxide (MAG-OX) 400 mg (241.3 mg magnesium) tablet 60 tablet 0 Sig: Take 1 tablet by mouth two times a day. metoprolol succinate ER (TOPROL XL) 25 mg 24 hr tablet 30 tablet 0 Sig: Take 1 tablet by mouth once daily. Jennifer Frias RN November 21, 2024 11:35 AM [facility]03-31-2025 Miscellaneous Notes* Telephone Encounter - Jennifer Frias RN - 11/21/2024 11:34 AM EDT The patient has been identified by name and date of : Yes Caregiver verified no other encounters exist for this prescription request: Yes Caregiver confirmed with patient/requestor that no other refills are due, in the near future, with this provider at this time: Yes The last office visit in the department: 11/07/2024 Does the patient have a future office visit with this provider/department: Yes 12/19/2024 Requested Prescriptions Pending Prescriptions Disp Refills magnesium oxide (MAG-OX) 400 mg (241.3 mg magnesium) tablet 60 tablet 0 Sig: Take 1 tablet by mouth two times a day. metoprolol succinate ER (TOPROL XL) 25 mg 24 hr tablet 30 tablet 0 Sig: Take 1 tablet by mouth once daily. Jennifer Frias RN November 21, 2024 11:35 AM documented in this encounterKindred Healthcare03-31-2025 Telephone encounter Note * Telephone Encounter - Jennifer Frias RN - 11/21/2024 11:33 AM EDT Patient notified of results and provider's instructions. Patient verbalizes understanding. Jennifer Frias RN [facility]03-31-2025 Miscellaneous Notes* Telephone Encounter - Jennifer Frias RN - 11/21/2024 11:33 AM EDT Patient notified of results and provider's instructions. Patient verbalizes understanding. Jennifer Frias RN documented in this encounterKindred Healthcare03-31-2025 Telephone encounter Note * Telephone Encounter - Jennifer Frias RN - 11/21/2024 11:32 AM EDT Patient notified of results and provider's instructions. Patient verbalizes understanding. Jennifer Frias RN [facility]03-31-2025 Miscellaneous Notes* Telephone Encounter - Jennifer Frias RN - 11/21/2024 11:32 AM EDT Patient notified of results and provider's instructions. Patient verbalizes understanding. Jennifer Frias RN * Telephone Encounter - Keira Cordon LPN - 11/21/2024 10:52 AM EDT Phoned patient left detailed message with results, notes from Dr Grady on patient voicemail, rx sentto the pharmacy. * Telephone Encounter - Bobby Grady MD - 11/21/2024 8:46 AM EDT Urine appears infected with two main bacteria. The one is usually a little more resistant. Send over script for cipro documented in this encounterKindred Healthcare03-31-2025 Telephone encounter Note * Telephone Encounter - Keira Cordon LPN - 11/21/2024 10:52 AM EDT Phoned patient left detailed message with results, notes from Dr Grady on patient voicemail, rx sentto the pharmacy. [facility]03-31-2025 Telephone encounter Note* Telephone Encounter - Bobby Grady MD - 11/21/2024 8:46 AM EDT Urine appears infected with two main bacteria. The one is usually a little more resistant. Send over script for cipro [facility]03-28-2025 Telephone encounter Note* Telephone Encounter - Robert Scanlon LPN - 11/18/2024 1:03 PM EDT Liz from [facility] calling stating when she sent in message for pt earlier that she forgot to ask pcp for refill of pt's losartan 25 mg. States pt is out of refills. Can return call to Liz if any issues [phone]. Robert Scanlon LPN [facility]03-28-2025 Miscellaneous Notes* Telephone Encounter - Robert Scanlon LPN - 11/18/2024 1:03 PM EDT Liz from [facility] calling stating when she sent in message for pt earlier that she forgot to ask pcp for refill of pt's losartan 25 mg. States pt is out of refills. Can return call to Liz if any issues [phone]. Robert Scanlon LPN documented in this encounterKindred Healthcare03-28-2025 Note* Addendum Note - Bobby Grady MD - 11/18/2024 12:56 PM EDTAddended by: BOBBY GRADY on: 11/18/2024 12:56 PM Modules accepted: Orders [facility]03-28-2025 Miscellaneous Notes* Addendum Note - Bobby Grady MD - 11/18/2024 12:56 PM EDTAddended by: BOBBY GRADY on: 11/18/2024 12:56 PM Modules accepted: Orders * Telephone Encounter - Bobby Grady MD - 11/18/2024 12:55 PM EDT Send urine and I called in cream. Thank you * Telephone Encounter - Liz Lopez RN - 11/18/2024 12:51 PM EDT Pradeep I am the home care nurse seeing this pt today for a routine visit. Pt c/o yeast infection rash to perineal area and burning with urination for 2 weeks. Pt denies fevers/n/v. States her urine is lightyellow. VSS. Pt is wondering if there is anything that she can take for these symptoms please. Thank you documented in this encounterKindred Healthcare03-28-2025 Telephone encounter Note * Telephone Encounter - Bobby Grady MD - 11/18/2024 12:55 PM EDT Send urine and I called in cream. Thank you [facility]03-28-2025 Telephone encounter Note* Telephone Encounter - Liz Lopez RN - 11/18/2024 12:51 PM EDT Pradeep I am the home care nurse seeing this pt today for a routine visit. Pt c/o yeast infection rash to perineal area and burning with urination for 2 weeks. Pt denies fevers/n/v. States her urine is lightyellow. VSS. Pt is wondering if there is anything that she can take for these symptoms please. Thank you [facility]03-28-2025 Miscellaneous Notes* HH SN Routine - Liz Lopez RN - 11/18/2024 12:39 PM EDT SITUATION: Custodial routine visit completed today. only patient also present during today's visit. patient reports the following: Allergies--reviewed Medications--reviewed current medications Falls--None DME-Reviewed and added to chart BACKGROUND: Reason for Home Care: nephrostomy site care ASSESSMENT: pt called for nurse to enter, pt sitting in recliner Patient appears in no acute distress. Patient/CG concerns verbalized today: pt c/o vaginal rash/itching and burning with urination or 2 weeks. pt states, I had thrush and I took something for that, they said it would work on the yeast too ,but it hasn't made a difference. Vitals (see flow sheet for details): stable SN findings today: pt pleasant. pt denies c/o pain. pt ambulates without device, SN taught pt fall safety. pt states she needs refill on losartan, I have a new pt appt with cardiology in november. SN sent in-basket message to Dr. Grady regarding pt's c/o listed above. SN also called Dr. Grady's officeand spoke to Thang nurse, SN relayed pt symptoms and need for refill, per Molly, she is unsure if Dr. Grady will refill losartan, he might defer to cardiology. SN received orders to obtain urine specimen, and the dr will call in a cream. SN relayed this to pt. SN supplied pt with urine collectionhat, wipes, and sterile container. SN taught pt how to obtain clean catch specimen. pt unable to obtain specimen at time of visit, 'I only go a little at a time because I am incontinent. SN will return for specimen. SN performed nephrostomy site care, no s/sx of infection noted. SN ordered more pivot foam dressings from [facility] for pt. SN taught pt s/sx of infection to report. See intervention summary for education details. Patient demonstrated a need for further skilled SN services for chronic disease management & education, medication education and drain/tube care. Current Discharge plan: self-care RECOMMENDATION: Next visit to focus on (be specific): review urine results, see if rash/burning has improved. nephrostomy tube care. documented in this encounterKindred Healthcare03-28-2025 Patient's home Note* HH SN Routine - Liz Lopez, RN - 11/18/2024 12:39 PM EDT SITUATION: Custodial routine visit completed today. only patient also present during today's visit. patient reports the following: Allergies--reviewed Medications--reviewed current medications Falls--None DME-Reviewed and added to chart BACKGROUND: Reason for Home Care: nephrostomy site care ASSESSMENT: pt called for nurse to enter, pt sitting in recliner Patient appears in no acute distress. Patient/CG concerns verbalized today: pt c/o vaginal rash/itching and burning with urination or 2 weeks. pt states, I had thrush and I took something for that, they said it would work on the yeast too ,but it hasn't made a difference. Vitals (see flow sheet for details): stable SN findings today: pt pleasant. pt denies c/o pain. pt ambulates without device, SN taught pt fall safety. pt states she needs refill on losartan, I have a new pt appt with cardiology in november. SN sent in-basket message to Dr. Grady regarding pt's c/o listed above. SN also called Dr. Grady's officeand spoke to Thang nurse, SN relayed pt symptoms and need for refill, per Molly, she is unsure if Dr. Grady will refill losartan, he might defer to cardiology. SN received orders to obtain urine specimen, and the dr will call in a cream. SN relayed this to pt. SN supplied pt with urine collectionhat, wipes, and sterile container. SN taught pt how to obtain clean catch specimen. pt unable to obtain specimen at time of visit, 'I only go a little at a time because I am incontinent. SN will return for specimen. SN performed nephrostomy site care, no s/sx of infection noted. SN ordered more pivot foam dressings from [facility] for pt. SN taught pt s/sx of infection to report. See intervention summary for education details. Patient demonstrated a need for further skilled SN services for chronic disease management & education, medication education and drain/tube care. Current Discharge plan: self-care RECOMMENDATION: Next visit to focus on (be specific): review urine results, see if rash/burning has improved. nephrostomy tube care. [facility] Work Phone: 1(236) 806-364403-24-2025 NoteHNO ID: [id number] Author: THANG PETER RN Service: ? Author Type: Registered Nurse Type: Progress Notes Filed: 11/14/2024 11:46 Note Text: Mis Specialist Management TCM Outreach PCP Update / Actionable Items none N/A - No specialty updates needed Patient Source: In-Network Discharge Follow-up outreach: Non-Value Based Patient Outreach Summary: Unable to reach patient for 12 day follow-up regarding hospital discharge. Patient is active with [facility] and has completed a PCP f/u visit. Patient discharged from Discharge date: 10/31/24 Admitted for: Right flank pain, severe sepsis Readmission Risk: 16 Value-Based Contract: Non-Value Based Contact: Contact made with patient: No - Second unsuccessful attempt. Thang Peter RN November 14, 2024 11:46 [facility]03-24-2025 History of Present illness Narrative* Thang Peter RN - 11/14/2024 11:42 AM EDT Mis Specialist Management TCM Outreach PCP Update / Actionable Items none N/A - No specialty updates needed Patient Source: In-Network Discharge Follow-up outreach: Non-Value Based Patient Outreach Summary: Unable to reach patient for 12 day follow-up regarding hospital discharge. Patient is active with [facility] and has completed a PCP f/u visit. Patient discharged from Discharge date: 10/31/24 Admitted for: Right flank pain, severe sepsis Readmission Risk: 16 Value-Based Contract: Non-Value Based Contact: Contact made with patient: No - Second unsuccessful attempt. Thang Peter RN November 14, 2024 11:46 AM documented in this encounterKindred Healthcare03-24-2025 NotePatient Outreach ([facility]) ALIYAH LEACH ([id number]) 1955 F Date Time Provider Department 11/14/24 THANG PETER [facility] During your visit today, we recorded the following information about you: Thang Peter RN 11/14/2024 11:46 AM Signed Mis Specialist Management TCM Outreach PCP Update / Actionable Items none N/A - No specialty updates needed Patient Source: In-Network Discharge Follow-up outreach: Non-Value Based Patient Outreach Summary: Unable to reach patient for 12 day follow-up regarding hospital discharge. Patient is active with [facility] and has completed a PCP f/u visit. Patient discharged from Discharge date: 10/31/24 Admitted for: Right flank pain, severe sepsis Readmission Risk: 16 Value-Based Contract: Non-Value Based Contact: Contact made with patient: No - Second unsuccessful attempt. Thang Peter RN November 14, 2024 11:46 AM Allergies As of Date: 11/14/2024 Noted Allergy Reaction DETROL (TOLTERODINE TARTRATE) 08/08/2005 2 - Rash PENICILLINS 08/08/2005 2 - Rash Comments: Tolerating piperacillin/tazobactam at [facility] in October 2024. AD PharmD Date Reviewed: 11/11/2024 Reviewed by: Elvira Bell RN - Fully Assessed Reason for Visit: Transitional Care Management [Other] Cmt: TCM Initial Discharge: 10/31/24 Prescriptions as of 11/14/2024 - clotrimazole (MYCELEX) 10 mg isabell Use 1 Isabell as instructed five times a day for 14 days. Dissolve in mouth - apixaban (ELIQUIS) 5 mg tab(s) Take 1 tablet by mouth two times a day. - amiodarone (PACERONE) 200 mg tablet Take 1 tablet by mouth two times a day. Patient should start on November 03, 2024. - losartan (COZAAR) 25 mg tablet Take 1 tablet by mouth two times a day. - metoprolol succinate ER (TOPROL XL) 25 mg 24 hr tablet Take 1 tablet by mouth once daily. - magnesium oxide (MAG-OX) 400 mg (241.3 mg magnesium) tablet Take 1 tablet by mouth two times a day. - omega-3 acid ethyl esters (LOVAZA) 1 gram capsule Take 2 g by mouth two times a day. - melatonin 3 mg capsules Take 3 mg by mouth daily at bedtime. - FLUoxetine (PROZAC) 40 mg capsule Take 1 capsule by mouth once daily. - metFORMIN (GLUCOPHAGE) 1,000 mg tablet Take 1 tablet by mouth two times a day with meals. - dulaglutide (TRULICITY) 1.5 mg/0.5 mL pen injector Inject 1.5 mg subcutaneously one time a week. Inject once per week. Discard Pen After - levothyroxine (SYNTHROID) 112 mcg tablet Take 1 tablet by mouth once daily. - pravastatin (PRAVACHOL) 40 mg tablet Take 1 tablet by mouth daily at bedtime. - vit C,C-De-etwwz-lutein-zeaxan (PRESERVISION AREDS-2) 250-90-40-1 mg Take 1 capsule by mouth twice daily with meals. - lactobacillus comb no.10 (PROBIOTIC) 20 billion cell cap Take 1 capsule by mouth once daily. Patient should start on November 02, 2024. - CYANOCOBALAMIN/COBAMAMIDE (B12 SUBLINGUAL) Dissolve 1 tablet under the tongue once daily. - Cholecalciferol, Vitamin D3, 125 mcg (5,000 unit) cap Take 125 Units by mouth once daily. - blood sugar diagnostic (ACCU-CHEK ROBIN) test strip Use as instructed - Lancets (ACCU-CHEK SOFTCLIX LANCETS) lancets Once daily. 250.40 - Blood-Glucose Meter (ACCU-CHEK ROBIN PLUS METER) misc 1 Each once daily. - multivitamin ORAL tablet Take 1 tablet by mouth once daily. Problem List As Of Date 11/14/2024 Noted Resolved Benign neoplasm of colon [D12.6] 09/09/2005 12/03/2016 History of malignant neoplasm of large intestin*09/09/2005 12/03/2016 Personal history of colonic polyps [Z86.0100] 09/09/2005 12/03/2016 MALIG NEOPL CERVIX UTERI [180] 12/31/2005 09/07/2007 Depressive disorder, not elsewhere classified [*12/31/2005 12/03/2016 Hypothyroidism [E03.9] 12/31/2005 ASA CLASS III [1003] 12/31/2005 12/03/2016 Type 2 diabetes mellitus without complication (*03/16/2007 01/10/2016 Malignant neoplasm of cervix uteri, unspecified*09/07/2007 12/03/2016 Hypertriglyceridemia [E78.1] 07/10/2009 Mixed Incontinence Urge and Stress (Male)(Femal*11/05/2009 Endometrial cancer [C54.1] 06/13/2011 12/25/2011 S/P hysterectomy with oophorectomy [Z90.710, Z9*06/22/2011 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] 07/14/2011 06/03/2012 Hyperlipidemia [E78.5] 01/21/2012 Diabetes mellitus (HCC) [E11.9] 02/20/2012 Endometrial cancer [C54.1] 11/01/2012 History of cervical cancer [Z85.41] 11/01/2012 History of colon cancer [Z85.038] 11/01/2012 Diabetic neuropathy (HCC) [E11.40] 02/22/2014 Type 2 diabetes mellitus with proteinuria or al*08/16/2014 04/23/2016 Urinary urgency [R39.15] 03/08/2015 12/03/2016 Frequency of micturition [R35.0] 03/08/2015 12/03/2016 Mixed incontinence [N39.46] 03/08/2015 Kidney stone on left side [N20.0] 03/08/2015 Recurrent major depression in partial remission*12/03/2016 Obesity, Class III, BMI >= 40 (morbid obesity) *12/03/2016 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] 08/12/2017 P (more content not included)...[facility]03-21-2025 Miscellaneous Notes* Routine - Elvira Bell RN - 11/11/2024 1:01 PM EDT SITUATION: Custodial routine visit completed today. only patient present during today's visit. patient reports the following: Allergies--reviewed Medications--reviewed current medications Falls--None BACKGROUND: Reason for Home Care: R kidney stone, neph tube ASSESSMENT: SN greeted at door by no one. Upon entrance patient found in chair Patient appears in no acute distress. Patient/CG concerns verbalized today: pt verbalizes that she does not feel that she has been urinating as much as she should Vitals (see flow sheet for details): stable SN findings today: Pt sitting in recliner. She is using the walker intermittently and feels that she is getting stronger. She states that she feels that the neph tube dressing is coming off. SN notesthat this is the case and dressing was changed today, sued foam adhesive dressing to also cover thehealing peridressing irritation that occurred while pt in hospita-it appears that this may have been a few small blisters initially but there is no drainage or signs of infection and this appears to be healing. No irritation or drainge around tube itself. Sn instructed pt to push more fluids. She states that she discussed the possibilty of a yeast infection vs UTI with Dr Grady this week and it isfelt that the mycelex isabell will treat this as well. Pt reports that the slight burning with urination is improving. she has not paid attention to urine color, SN instructed her that urine should get federal judicial law clerk as the day goes on and to be observant of this. Pt continues to use the A&D ointment to buttocks and this is also improving expecially the discomfort. See intervention summary for education details. Patient demonstrated a need for further skilled SN services for chronic disease management & education and urinary catheter care. Current Discharge plan: self-care and family support RECOMMENDATION: Next visit to focus on (be specific): neph tube assessment and dressing change if needed documented in this encounterKindred Healthcare03-21-2025 Patient's home Note* SN Routine - Elvira Bell RN - 11/11/2024 1:01 PM EDT SITUATION: Custodial routine visit completed today. only patient present during today's visit. patient reports the following: Allergies--reviewed Medications--reviewed current medications Falls--None BACKGROUND: Reason for Home Care: R kidney stone, neph tube ASSESSMENT: SN greeted at door by no one. Upon entrance patient found in chair Patient appears in no acute distress. Patient/CG concerns verbalized today: pt verbalizes that she does not feel that she has been urinating as much as she should Vitals (see flow sheet for details): stable SN findings today: Pt sitting in recliner. She is using the walker intermittently and feels that she is getting stronger. She states that she feels that the neph tube dressing is coming off. SN notesthat this is the case and dressing was changed today, sued foam adhesive dressing to also cover thehealing peridressing irritation that occurred while pt in hospita-it appears that this may have been a few small blisters initially but there is no drainage or signs of infection and this appears to be healing. No irritation or drainge around tube itself. Sn instructed pt to push more fluids. She states that she discussed the possibilty of a yeast infection vs UTI with Dr Grayd this week and it isfelt that the mycelex isabell will treat this as well. Pt reports that the slight burning with urination is improving. she has not paid attention to urine color, SN instructed her that urine should get federal judicial law clerk as the day goes on and to be observant of this. Pt continues to use the A&D ointment to buttocks and this is also improving expecially the discomfort. See intervention summary for education details. Patient demonstrated a need for further skilled SN services for chronic disease management & education and urinary catheter care. Current Discharge plan: self-care and family support RECOMMENDATION: Next visit to focus on (be specific): neph tube assessment and dressing change if needed [facility] Work Phone: [phone] Miscellaneous Notes* PT ROUTINE/REASSESSMENT/RECERT/CASE MGMT - Melyssa Steel PTA - 11/10/2024 11:11 AM EDT SITUATION: only patient present during today's visit. patient reports the following since the last homecare visit: medications/allergies--no changes, no fall. patient reports he Dr appointment went good. Returned to own home last noght. Requesting DC from PT due to feeling good and being at her PLOF. BACKGROUND: Diagnoses (reason for Home Care): ): on 10/23/24-10/31/2024 . Encounter for surgical aftercare following surgery on the genitourinary system Procedure: 10/28/24 Right antegrade nephrostogram with placement of right ureteral stent and replacement of right nephrostomy tube Weight Bearing/Precaution Changes: no changes ASSESSMENT: Focus of visit Gait training w/ww for household distances. IND w/ bed mobility and chair transfers.Has good understanding of HEP. Patient requesting no further PT visits as she feels she has returned to her PLOF Plan of care, goals, and visit frequency reviewed and agreed upon with patient and/or caregiver. Current Discharge Plan: independent with home exercise program Anticipate discharge by TBD RECOMMENDATION: Next visit to focus on patient requesting PT DC See intervention summary for intervention/education details. documented in this encounterKindred Healthcare03-20-2025 Patient's home Note* PT ROUTINE/REASSESSMENT/RECERT/CASE MGMT - Melyssa Steel PTA - 11/10/2024 11:11 AM EDT SITUATION: only patient present during today's visit. patient reports the following since the last homecare visit: medications/allergies--no changes, no fall. patient reports he Dr appointment went good. Returned to own home last noght. Requesting DC from PT due to feeling good and being at her PLOF. BACKGROUND: Diagnoses (reason for Home Care): ): on 10/23/24-10/31/2024 . Encounter for surgical aftercare following surgery on the genitourinary system Procedure: 10/28/24 Right antegrade nephrostogram with placement of right ureteral stent and replacement of right nephrostomy tube Weight Bearing/Precaution Changes: no changes ASSESSMENT: Focus of visit Gait training w/ww for household distances. IND w/ bed mobility and chair transfers.Has good understanding of HEP. Patient requesting no further PT visits as she feels she has returned to her PLOF Plan of care, goals, and visit frequency reviewed and agreed upon with patient and/or caregiver. Current Discharge Plan: independent with home exercise program Anticipate discharge by TBD RECOMMENDATION: Next visit to focus on patient requesting PT DC See intervention summary for intervention/education details. [facility] Work Phone: 1(886) 753-896003-18-2025 Miscellaneous Notes* OT ROUTINE / CASE MGMT VISIT - Radha Uribe COTA/Haley - 11/08/2024 11:06 AM EDT SITUATION: Pt. seen for HUERTAS Routine Visit. only patient present during today's visit. patient reports the following since the last homecare visit: medications/allergies--no changes, no fall. patient reports She is doing okay. She was able to get dressed and get her shower this morning after her cousin went to work. BACKGROUND: Diagnoses or reason for Home Care: Encounter for surgical aftercare following surgery on the genitourinary system Procedure: 10/28/24 Right antegrade nephrostogram with placement of right ureteral stent and replacement of right nephrostomy tube SPECIFIC ORDERS: - Precautions/Activity Restrictions: Fall Risk, R nephrostomy tube ASSESSMENT: Focus of Visit ADLs, IADLs Patient identified goals to get back home Plan of care, goals, and visit frequency reviewed and agreed upon with patient and/or caregiver. See intervention summary for intervention/education details. Current Discharge Plan: remain in community with/without caregiver support. Anticipate discharge by 12/02/2024 RECOMMENDATION: Next visit to focus on Issue/Review B UE HEP. documented in this encounterKindred Healthcare03-18-2025 Patient's home Note* OT ROUTINE / CASE MGMT VISIT - Radha Uribe COTA/L - 11/08/2024 11:06 AM EDT SITUATION: Pt. seen for HUERTAS Routine Visit. only patient present during today's visit. patient reports the following since the last homecare visit: medications/allergies--no changes, no fall. patient reports She is doing okay. She was able to get dressed and get her shower this morning after her cousin went to work. BACKGROUND: Diagnoses or reason for Home Care: Encounter for surgical aftercare following surgery on the genitourinary system Procedure: 10/28/24 Right antegrade nephrostogram with placement of right ureteral stent and replacement of right nephrostomy tube SPECIFIC ORDERS: - Precautions/Activity Restrictions: Fall Risk, R nephrostomy tube ASSESSMENT: Focus of Visit ADLs, IADLs Patient identified goals to get back home Plan of care, goals, and visit frequency reviewed and agreed upon with patient and/or caregiver. See intervention summary for intervention/education details. Current Discharge Plan: remain in community with/without caregiver support. Anticipate discharge by 12/02/2024 RECOMMENDATION: Next visit to focus on Issue/Review B UE HEP. [facility] Work Phone: 1(709) 772-148903-17-2025 NoteHNO ID: [id number] Author: BOBBY GRAYD MD Service: ? Author Type: Physician Type: Progress Notes Filed: 11/07/2024 16:09 Note Text: Patient presents with: Hospital F/U HPI: Patient presents today for office visit for hospital follow up/TCM Admitted 10/23-11/10/24-TCM call completed. [facility] appt is coming up. Urology is not seeing anybody yet. Has seen Dr. Osborn in [place]. They had said in the hospital her left kidney was small, however her gfr is great. Has stent in place. They will be following with them. [facility] is following with therapies. Overall feeling well. Living with her daughter currently. She is using a walker. They will determine when it is ok to move home. No chest pain or shortness of breath. No new edema. No palpitations. Bp and heart rate is good. Sugars have been great. No fever or chills. Tubes are clear. Blisters are doing well that were around her tubes. Appetite is good. Has labs and urine ordered by Dr Osborn Note was copied and pasted, without alteration from hospital discharge summary: Reason for Hospitalization: right-sided flank pain. Principal Problem: Severe sepsis (HCC) (POA: Yes) Active Problems: Vesicovaginal fistula (POA: Yes) Right ureteral calculus (POA: Yes) Renal atrophy, left (POA: Yes) CHAPITO (acute kidney injury) (HCC) (POA: Yes) Acute UTI (POA: Yes) Obesity, Class II, BMI 35-39.9 (POA: Unknown) Atrial fibrillation with RVR (HCC) (POA: Unknown) Hypertension (POA: Unknown) Resolved Problems: * No resolved hospital problems. * Procedures During Hospitalization: Right-sided nephrostomy tube placed in IR on 10/23. Hospital Course: A 69-year-old female with significant past medical history of diabetes, hypothyroidism and depression that presents for sudden onset right flank pain. Diagnosis/Management: Right-sided Ureteral Stone: Pt presented to ED with R flank pain. 9 mm stone at R UPJ. 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 R nephrostomy tube placed in IR on 10/23. S/p antegrade stent insertion 10/28. F/U with urology outpatient for further mgmt. Severe Sepsis / UTI / Lactic Acidosis: Febrile and tachycardic on ED arrival. WBC 22, lactic acid 3.5. Urine culture from nephrostomy tube grew E. coli. Completed 9 days of IV abx. Atrial Fibrillation with RVR: A-fib with RVR (HR 144). Continue Amiodarone PO per Cardiology. Continue Eliquis 5 mg BID. F/U with cardiology outpatient for further mgmt. Disposition: Stable for discharge. MEDICATIONS: Current Outpatient Medications Medication Sig clotrimazole (MYCELEX) 10 mg isabell Use 1 Isabell as instructed five times a day for 14 days. Dissolve in mouth apixaban (ELIQUIS) 5 mg tab(s) Take 1 tablet by mouth two times a day. amiodarone (PACERONE) 200 mg tablet Take 1 tablet by mouth two times a day. Patient should start on November 03, 2024. losartan (COZAAR) 25 mg tablet Take 1 tablet by mouth two times a day. metoprolol succinate ER (TOPROL XL) 25 mg 24 hr tablet Take 1 tablet by mouth once daily. magnesium oxide (MAG-OX) 400 mg (241.3 mg magnesium) tablet Take 1 tablet by mouth two times a day. melatonin 3 mg capsules Take 3 mg by mouth daily at bedtime. FLUoxetine (PROZAC) 40 mg capsule Take 1 capsule by mouth once daily. (Patient taking differently: Take 20 mg by mouth once daily.) metFORMIN (GLUCOPHAGE) 1,000 mg tablet Take 1 tablet by mouth two times a day with meals. levothyroxine (SYNTHROID) 112 mcg tablet Take 1 tablet by mouth once daily. pravastatin (PRAVACHOL) 40 mg tablet Take 1 tablet by mouth daily at bedtime. CYANOCOBALAMIN/COBAMAMIDE (B12 SUBLINGUAL) Dissolve 1 tablet under the tongue once daily. Cholecalciferol, Vitamin D3, 125 mcg (5,000 unit) cap Take 125 Units by mouth once daily. multivitamin ORAL tablet Take 1 tablet by mouth once daily. amiodarone (PACERONE) 200 mg tablet Take 2 tablets by mouth three times a day for 2 days. Then fill continuation order. glimepiride (AMARYL) 4 mg tablet Take 4 mg by mouth daily at 6 pm. (Patient not taking: Reported on 11/07/2024) omega-3 acid ethyl esters (LOVAZA) 1 gram capsule Take 2 g by mouth two times a day. (Patient not taking: Reported on 11/07/2024) dulaglutide (TRULICITY) 1.5 mg/0.5 mL pen injector Inject 1.5 mg subcutaneously one time a week. Inject once per week. Discard Pen After vit C,D-Iq-sbcrw-lutein-zeaxan (PRESERVISION AREDS-2) 250-90-40-1 mg Take 1 capsule by mouth twice daily with meals. lactobacillus comb no.10 (PROBIOTIC) 20 billion cell cap Take 1 capsule by mouth once daily. Patient should start on November 02, 2024. blood sugar diagnostic (ACCU-CHEK ROBIN) test strip Use as instructed Lancets (ACCU-CHEK SOFTCLIX LANCETS) lancets Once daily. 250.40 Blood-Glucose Meter (ACCU-CHEK ROBIN PLUS METER) misc 1 Each once daily. No current facility-administered medications for this visit. ALLERGIES: ALLERGIES (more content not included)...[facility]03-17-2025 History of Present illness Narrative* Bobby Grady MD - 11/07/2024 3:49 PM EDT Patient presents with: Hospital F/U HPI: Patient presents today for office visit for hospital follow up/TCM Admitted 10/23-11/10/24-TCM call completed. [facility] appt is coming up. Urology is not seeing anybody yet. Has seen Dr. Osborn in [place]. They had said in the hospital her left kidney was small, however her gfr is great. Has stent in place. They will be following with them. [facility] is following with therapies. Overall feeling well. Living with her daughter currently. She is using a walker. They will determine when it is ok to move home. No chest pain or shortness of breath. No new edema. No palpitations. Bp and heart rate is good. Sugars have been great. No fever or chills. Tubes are clear. Blisters are doing well that were around her tubes. Appetite is good. Has labs and urine ordered by Dr Osborn Note was copied and pasted, without alteration from hospital discharge summary: Reason for Hospitalization: right-sided flank pain. Principal Problem: Severe sepsis (HCC) (POA: Yes) Active Problems: Vesicovaginal fistula (POA: Yes) Right ureteral calculus (POA: Yes) Renal atrophy, left (POA: Yes) CHAPITO (acute kidney injury) (HCC) (POA: Yes) Acute UTI (POA: Yes) Obesity, Class II, BMI 35-39.9 (POA: Unknown) Atrial fibrillation with RVR (HCC) (POA: Unknown) Hypertension (POA: Unknown) Resolved Problems: * No resolved hospital problems. * Procedures During Hospitalization: Right-sided nephrostomy tube placed in IR on 10/23. Hospital Course: A 69-year-old female with significant past medical history of diabetes, hypothyroidism and depression that presents for sudden onset right flank pain. Diagnosis/Management: Right-sided Ureteral Stone: Pt presented to ED with R flank pain. 9 mm stone at R UPJ. 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 R nephrostomy tube placed in IR on 10/23. S/p antegrade stent insertion 10/28. F/U with urology outpatient for further mgmt. Severe Sepsis / UTI / Lactic Acidosis: Febrile and tachycardic on ED arrival. WBC 22, lactic acid 3.5. Urine culture from nephrostomy tube grew E. coli. Completed 9 days of IV abx. Atrial Fibrillation with RVR: A-fib with RVR (HR 144). Continue Amiodarone PO per Cardiology. Continue Eliquis 5 mg BID. F/U with cardiology outpatient for further mgmt. Disposition: Stable for discharge. MEDICATIONS: Current Outpatient Medications Medication Sig clotrimazole (MYCELEX) 10 mg isabell Use 1 Isabell as instructed five times a day for 14 days. Dissolve in mouth apixaban (ELIQUIS) 5 mg tab(s) Take 1 tablet by mouth two times a day. amiodarone (PACERONE) 200 mg tablet Take 1 tablet by mouth two times a day. Patient should start onNovember 03, 2024. losartan (COZAAR) 25 mg tablet Take 1 tablet by mouth two times a day. metoprolol succinate ER (TOPROL XL) 25 mg 24 hr tablet Take 1 tablet by mouth once daily. magnesium oxide (MAG-OX) 400 mg (241.3 mg magnesium) tablet Take 1 tablet by mouth two times a day. melatonin 3 mg capsules Take 3 mg by mouth daily at bedtime. FLUoxetine (PROZAC) 40 mg capsule Take 1 capsule by mouth once daily. (Patient taking differently: Take 20 mg by mouth once daily.) metFORMIN (GLUCOPHAGE) 1,000 mg tablet Take 1 tablet by mouth two times a day with meals. levothyroxine (SYNTHROID) 112 mcg tablet Take 1 tablet by mouth once daily. pravastatin (PRAVACHOL) 40 mg tablet Take 1 tablet by mouth daily at bedtime. CYANOCOBALAMIN/COBAMAMIDE (B12 SUBLINGUAL) Dissolve 1 tablet under the tongue once daily. Cholecalciferol, Vitamin D3, 125 mcg (5,000 unit) cap Take 125 Units by mouth once daily. multivitamin ORAL tablet Take 1 tablet by mouth once daily. amiodarone (PACERONE) 200 mg tablet Take 2 tablets by mouth three times a day for 2 days. Then fillcontinuation order. glimepiride (AMARYL) 4 mg tablet Take 4 mg by mouth daily at 6 pm. (Patient not taking: Reported on11/07/2024) omega-3 acid ethyl esters (LOVAZA) 1 gram capsule Take 2 g by mouth two times a day. (Patient not taking: Reported on 11/07/2024) dulaglutide (TRULICITY) 1.5 mg/0.5 mL pen injector Inject 1.5 mg subcutaneously one time a week. Inject once per week. Discard Pen After vit C,Z-Wx-vybxr-lutein-zeaxan (PRESERVISION AREDS-2) 250-90-40-1 mg Take 1 capsule by mouth twice daily with meals. lactobacillus comb no.10 (PROBIOTIC) 20 billion cell cap Take 1 capsule by mouth once daily. Patient should start on November 02, 2024. blood sugar diagnostic (ACCU-CHEK ROBIN) test strip Use as instructed Lancets (ACCU-CHEK SOFTCLIX LANCETS) lancets Once daily. 250.40 Blood-Glucose Meter (ACCU-CHEK ROBIN PLUS METER) misc 1 Each once daily. No current facility-administered medications for this visit. ALLERGIES: ALLERGIES Allergen Reactions Detrol [Tolterodine* Rash Penicillins Rash Tolerating piperacillin/tazobactam at [facility] in October 2024. 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, S/P EBRT and HDR brachytherapy Malignant neoplasm of colon, unspecified site 1999 Colon cancer Obesity, unspecified Psoriasis Radiation 2005 for Cervical Cancer PAST SURGICAL HISTORY Procedure Laterality Date ARTHRP KNE CONDYLE&PLATU MEDIAL&LAT COMPARTMENTS 2010 left knee ARTHRP KNE CONDYLE&PLATU MEDIAL&LAT COMPARTMENTS 01/01/2015 Right knee BIOPSY BREAST OPEN INCISIONAL Bx of breast, incisional CHOLECYSTECTOMY 1987 Open cholecystectomy COLECTOMY PARTIAL W/ANASTOMOSIS 1999 Hemicolectomy COLONOSCOPY 10/2018 COLONOSCOPY FLX DX W/COLLJ SPEC WHEN PFRMD Colonoscopy COLONOSCOPY FLX DX W/COLLJ SPEC WHEN PFRMD 09/09/2005 Colonoscopy COLONOSCOPY FLX DX W/COLLJ SPEC WHEN PFRMD 11/15/2008 Colonoscopy COLONOSCOPY FLX DX W/COLLJ SPEC WHEN PFRMD 02/11/12, 03/2015 Repeat in 3 years (03/2018) DILATION & CURETTAGE DX&/THER NONOBSTETRIC 05/29/2011 Dilation & curettage PAST SURGICAL HISTORY OF Rt port placement REMV CATARACT EXTRACAP,INSERT LENS Left 10/2021 REPAIR FIRST ABDOMINAL WALL HERNIA 2000 Hernia repair, incisional TOT ABD HYST W/PARAORTIC & PELVIC LYMPH NODE MARK 06/19/2011 Exploratory laparotomy with extensive lysis of adhesions, total abdominal hysterectomy, bilateral salpingo- oophorectomy, cystoscopy, and omentectomy. FAMILY HISTORY Problem Relation Age of Onset Diabetes Mother Genitourinary () Mother renal failure Cancer Father rectal cancer Hypertension Sister Diabetes Sister Cancer Sister lymphoma, leukemia Diabetes Brother Breast Cancer Paternal Aunt diagnosed in her late 50's still alive and well Thyroid Cancer Niece/Nephew other (? kidney cancer) Nephew Social History Tobacco Use Smoking status: Never Smokeless tobacco: Never Vaping Use Vaping status: Never Used Substance Use Topics Alcohol use: Yes Comment: rarely Drug use: No Reviewed current medications, allergies, past medical history, surgical history, family history andsocial history today. REVIEW OF SYSTEMS All other reviewed and negative other than HPI. VITALS: BP 112/60 Pulse 75 Wt 107 kg (236 lb) LMP 08/20/2005 SpO2 96% BMI 40.51 kg/m Last 4 Encounter Wt Readings: Date: Wt: 11/07/2024 107 kg (236 lb) 11/02/2024 99.5 kg (219 lb 6.4 oz) 10/23/2024 113.8 kg (250 lb 14.1 oz) 10/05/2024 105.7 kg (233 lb) PHYSICAL EXAMINATION: General appearance: Well appearing, alert, in no acute distress, well-hydrated, well nourished. Skin: Skin color, texture, turgor normal, no suspicious rashes or lesions Head: Normocephalic, no masses, lesions, tenderness or abnormalities Lungs: Lungs clear to auscultation. No wheezing, rhonchi, rales Heart: RRR without murmur, gallop, or rubs. No ectopy Abdomen: Normal abdominal exam, Abdomen soft, non-tender. Bowel sounds normal. No masses, organomegaly Extremities: No deformities, edema, skin discoloration, clubbing or cyanosis. Good capillary refill. Musculoskeletal: No joint swelling, deformity, or tenderness Nephrostomy on right. ASSESSMENT/PLAN: 1. Severe sepsis (HCC) - ICD9: 038.9, 995.92, ICD10: A41.9, R65.20 (primary diagnosis) - get labs per Dr Osborn. Doing really well. 2. Malignant neoplasm of colon, unspecified part of colon (HCC) - ICD9: 153.9, ICD10: C18.9 - stable. 3. 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 4. Atrial fibrillation with RVR (HCC) - ICD9: 427.31, ICD10: I48.91 - per cardiology. Continue meds. 5. Obesity, Class III, BMI 40-49.9 (morbid obesity) (HCC) - ICD9: 278.01, ICD10: E66.01 - follow 6. Diabetic polyneuropathy associated with type 2 diabetes mellitus (HCC) - ICD9: 250.60, 357.2, ICD10: E11.42 - has been stable. 7. Kidney stone on left side - ICD9: 592.0, ICD10: N20.0 - per urologyl 8. Right ureteral calculus - ICD9: 592.1, ICD10: N20.1 - per urology 9. Primary hypertension - ICD9: 401.9, ICD10: I10 - Controlled - Continue current medications - Encouraged sodium restriction, DASH or Mediterranean diet - Recommend regular aerobic exercise Bobby Grady RTO in six weeks and prn. documented in this encounterKindred [facility]03-17-2025 Miscellaneous Notes* SN Routine - Elvira Bell RN - 11/07/2024 12:46 PM EDT SITUATION: Custodial routine visit completed today. daughter also present during today's visit. patient reports the following: Allergies--reviewed Medications--reviewed current medications Falls--None BACKGROUND: Reason for Home Care: acute R kidney stone, new dx a fib, HTN ASSESSMENT: SN greeted at door by caregiver. Upon entrance patient found in chair Patient appears in no acute distress. Patient/CG concerns verbalized today: no new concerns Vitals (see flow sheet for details): stable SN findings today: Pt sitting on couch/recliner. She states that she is feeling well today, main c/o weakness. Pt using walker and ambulating with supervision on uneven surfaces. R nepphrostomy tube dressing is dry and intact, supplies have not arrived yet but no indication to change th dressing. Pt states that she has had some burning with urinstion and will address this with PCP today. Pt instructed on new cardiac meds, she is seeing PCP this afternoon and will be given referrals for urlogy, cardiology and possibly nephrology. See intervention summary for education details. Patient demonstrated a need for further skilled SN services for chronic disease management & education, medication education, wound/skin care, safety and drain/tube care. Current Discharge plan: self-care and family support RECOMMENDATION: Next visit to focus on (be specific): Neph tube dressing change; has pt rec'd supplies. CP assess, assess for any s/s HTN or A fib exac. documented in this encounterKindred Healthcare03-17-2025 Patient's home Note* SN Routine - Elvira Bell RN - 11/07/2024 12:46 PM EDT SITUATION: Custodial routine visit completed today. daughter also present during today's visit. patient reports the following: Allergies--reviewed Medications--reviewed current medications Falls--None BACKGROUND: Reason for Home Care: acute R kidney stone, new dx a fib, HTN ASSESSMENT: SN greeted at door by caregiver. Upon entrance patient found in chair Patient appears in no acute distress. Patient/CG concerns verbalized today: no new concerns Vitals (see flow sheet for details): stable SN findings today: Pt sitting on couch/recliner. She states that she is feeling well today, main c/o weakness. Pt using walker and ambulating with supervision on uneven surfaces. R nepphrostomy tube dressing is dry and intact, supplies have not arrived yet but no indication to change th dressing. Pt states that she has had some burning with urinstion and will address this with PCP today. Pt instructed on new cardiac meds, she is seeing PCP this afternoon and will be given referrals for urlogy, cardiology and possibly nephrology. See intervention summary for education details. Patient demonstrated a need for further skilled SN services for chronic disease management & education, medication education, wound/skin care, safety and drain/tube care. Current Discharge plan: self-care and family support RECOMMENDATION: Next visit to focus on (be specific): Neph tube dressing change; has pt rec'd supplies. CP assess, assess for any s/s HTN or A fib exac. [facility] Work Phone: [phone]) 633-187303-17-2025 Miscellaneous Notes* PT ROUTINE/REASSESSMENT/RECERT/CASE MGMT - Melyssa Steel PTA - 11/07/2024 11:30 AM EDT SITUATION: only patient present during today's visit. patient reports the following since the last homecare visit: medications/allergies--no changes, no fall. patient reports she is feeling pretty good and really wants to get back to her own home. Hoping will tell her she can go home at todays visit. BACKGROUND: Diagnoses (reason for Home Care): Encounter for surgical aftercare following surgery on the genitourinary system Procedure: 10/28/24 Right antegrade nephrostogram with placement of right ureteral stent and replacement of right nephrostomy tube Weight Bearing/Precaution Changes: right drain tube ASSESSMENT: Focus of visit initiated seated LE strength exercises for HEP. Provided pictures and written instructions. Patient denies pain before, during or after todays visit. Stair training to exit home w/ 1 HR Plan of care, goals, and visit frequency reviewed and agreed upon with patient and/or caregiver. Current Discharge Plan: independent with home exercise program Anticipate discharge by 11/30/24 RECOMMENDATION: Next visit to focus on check to see if patient is at her own home. possibly add standing heel raises See intervention summary for intervention/education details. documented in this encounterKindred Healthcare03-17-2025 Patient's home Note* PT ROUTINE/REASSESSMENT/RECERT/CASE MGMT - Melyssa Steel PTA - 11/07/2024 11:30 AM EDT SITUATION: only patient present during today's visit. patient reports the following since the last homecare visit: medications/allergies--no changes, no fall. patient reports she is feeling pretty good and really wants to get back to her own home. Hoping will tell her she can go home at todays visit. BACKGROUND: Diagnoses (reason for Home Care): Encounter for surgical aftercare following surgery on the genitourinary system Procedure: 10/28/24 Right antegrade nephrostogram with placement of right ureteral stent and replacement of right nephrostomy tube Weight Bearing/Precaution Changes: right drain tube ASSESSMENT: Focus of visit initiated seated LE strength exercises for HEP. Provided pictures and written instructions. Patient denies pain before, during or after todays visit. Stair training to exit home w/ 1 HR Plan of care, goals, and visit frequency reviewed and agreed upon with patient and/or caregiver. Current Discharge Plan: independent with home exercise program Anticipate discharge by 11/30/24 RECOMMENDATION: Next visit to focus on check to see if patient is at her own home. possibly add standing heel raises See intervention summary for intervention/education details. [facility] Work Phone: 1([phone]) 590-781103-14-2025 Telephone encounter Note* Telephone Encounter - Jada Osborn MD - 11/04/2024 10:30 AM EDT Surgery: Cystoscopy and pyelograms, right ureteroscopy with laser lithotripsy, possible ureteral stent removal Duration: 1 hour(s) Surgeon: Jada Osborn MD Location: [facility] Anesthesia: General Fluoroscopy: Yes Special equipment: Thulium (soltive) laser PACC visit: No Presurgical testing: CBC, BMP, Urinalysis and urine culture one week prior to surgery, EKG Clearance: No Bowel prep: No Blood thinners to stop: yes [facility]03-14-2025 Miscellaneous Notes* Telephone Encounter - Jada Osborn MD - 11/04/2024 10:30 AM EDT Surgery: Cystoscopy and pyelograms, right ureteroscopy with laser lithotripsy, possible ureteral stent removal Duration: 1 hour(s) Surgeon: Jada Osborn MD Location: [facility] Anesthesia: General Fluoroscopy: Yes Special equipment: Thulium (soltive) laser PACC visit: No Presurgical testing: CBC, BMP, Urinalysis and urine culture one week prior to surgery, EKG Clearance: No Bowel prep: No Blood thinners to stop: yes documented in this encounterKindred Healthcare03-14-2025 Telephone encounter Note * Telephone Encounter - MANISHA HUFF - 11/04/2024 9:37 AM EDT Spoke with daughter, Amelia, at this time and advised of below information. States that they have beenchecking and keeping log of her BS and BP. Home health has been in to evaluate and check patient. They will be returning again next week. She will keep appt on 11/07/24 to further discuss. Manisha Huff LPN [facility]03-14-2025 Miscellaneous Notes* Telephone Encounter - MANISHA HUFF - 11/04/2024 9:37 AM EDT Spoke with daughter, Amelia, at this time and advised of below information. States that they have beenchecking and keeping log of her BS and BP. Home health has been in to evaluate and check patient. They will be returning again next week. She will keep appt on 11/07/24 to further discuss. Manisha Huff LPN * Telephone Encounter - Rowan Luz MA - 11/01/2024 11:41 AM EDT Left message for patient's daughter Amelia. Rowan Luz MA * Telephone Encounter - Bobby Grady MD - 11/01/2024 10:42 AM EDT What the did in the hospital with her sugars and bp is quite common. Looking at her info, I think the current appt is appropriate. If she feels she needs to be seen sooner, would likely have to see another provider and usually we wait one to two weeks after discharge to get a good gauge of how doing. Monitor sugars at home. Do they have the ability to check bp. I think home health is following her and will let us know if bp is up as well. * Telephone Encounter - Jacqueline Apodaca LPN - 11/01/2024 9:51 AM EDT Pt's daughter calls to report that pt was in [facility] x 9 days. Pt was discharged 10/31. Daughter reports pt had multiple issues while in the hospital. F/u appt scheduled with pcp for 11/07/24 per daughter request. Daughter reports that pt does have an appt with [facility] on 12/05/24 as pt went into A-fib in hospital. Daughter is asking if provider can review hospital records to see if appt date is ok or if pt needssooner. Daughter reports at this time pt is worn out but doing ok. Daughter's concerns are bp spiking (in hospital they would put medication in IV if bp was high) andblood sugars being high (pt would be given insulin in hospital if blood sugars were high). Pt does not have insulin at home. Daughter is going to keep record of bp and blood sugar readings and will update the office if they are high. Jacqueline Apodaca LPN documented in this encounterKindred Healthcare03-14-2025 Miscellaneous Notes* OT EVALUATION/REASSESSMENT/RECERT - Anni Benoit OT - 11/04/2024 6:55 AM EDT SITUATION: Pt seated on couch upon arrival in no apparent distress. daughter present during today's visit. patient reports the following since the last homecare visit:medications/allergies--no changes, no fall. BACKGROUND: Diagnoses or reason for home care: hospital admission to on 10/23/24-10/31/2024 . 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 Patient/Caregiver declined Pt has thepaperwork and is in the process of filling it out. Advance Directive information. ASSESSMENT: PLOF: Pt was living alone and was Indep with ADL, IADL, transfers, and household mobility without adevice. She was driving and used a cane for community distance mobility. She was managing her own meds. Social situation: Pt normally lives alone in 1st floor apt with no steps to enter or navigate. She is currently staying with her cousin in a 1st floor apt with 1 step entry. Cousin works until 130. Dtr lives locally and is assisting during the am. Has a son who also lives locally and can be available as needed. Barriers: decreased balance, decreased activity tolerance D/C Plan: to go back to her own home. Patient evaluated by [facility] occupational therapy. Reviewed and explained homecare services. Plan of care, goals and visit frequency developed, reviewed, and agreed upon with patient and/or caregiver. Patient identified goals: to be more mobile. Patient will benefit from continued occupational therapy to address the following deficits functional activity including I/ADLs, UE strength/ROM and functional transfers as evidenced by score on Modified Alex Index 65/100 indicating moderate assist required for ADL tasks. Prior to surgery, patient was Indep in all I/ADLs, though due to weakness, fatigue, decreased balance, patient has been requiring more assistance and/or more time and effort to complete I/ADL, transfers, and mobility. Without continued OT services, patient risks prolonged dependence upon caregivers for I/ADLs and potential injury leading to a longer and more difficult recovery. Current Discharge Plan:remain in community with/without caregiver support. Anticipate discharge by 12/03/24 RECOMMENDATION: Plan for next visit to focus on ADL/IADL tasks. See intervention summary for intervention/education details. documented in this [facility] Patient's home Note* OT EVALUATION/REASSESSMENT/RECERT - Anni Benoit OT - 11/04/2024 6:55 AM EDT SITUATION: Pt seated on couch upon arrival in no apparent distress. daughter present during today's visit. patient reports the following since the last homecare visit:medications/allergies--no changes, no fall. BACKGROUND: Diagnoses or reason for home care: hospital admission to on 10/23/24-10/31/2024 . 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 Patient/Caregiver declined Pt has thepaperwork and is in the process of filling it out. Advance Directive information. ASSESSMENT: PLOF: Pt was living alone and was Indep with ADL, IADL, transfers, and household mobility without adevice. She was driving and used a cane for community distance mobility. She was managing her own meds. Social situation: Pt normally lives alone in 1st floor apt with no steps to enter or navigate. She is currently staying with her cousin in a 1st floor apt with 1 step entry. Cousin works until 130. Dtr lives locally and is assisting during the am. Has a son who also lives locally and can be available as needed. Barriers: decreased balance, decreased activity tolerance D/C Plan: to go back to her own home. Patient evaluated by [facility] occupational therapy. Reviewed and explained homecare services. Plan of care, goals and visit frequency developed, reviewed, and agreed upon with patient and/or caregiver. Patient identified goals: to be more mobile. Patient will benefit from continued occupational therapy to address the following deficits functional activity including I/ADLs, UE strength/ROM and functional transfers as evidenced by score on Modified Alex Index 65/100 indicating moderate assist required for ADL tasks. Prior to surgery, patient was Indep in all I/ADLs, though due to weakness, fatigue, decreased balance, patient has been requiring more assistance and/or more time and effort to complete I/ADL, transfers, and mobility. Without continued OT services, patient risks prolonged dependence upon caregivers for I/ADLs and potential injury leading to a longer and more difficult recovery. Current Discharge Plan:remain in community with/without caregiver support. Anticipate discharge by 12/03/24 RECOMMENDATION: Plan for next visit to focus on ADL/IADL tasks. See intervention summary for intervention/education details. [facility] Work Phone: [phone]) 338-554903-13-2025 Miscellaneous Notes* PT EVALUATION - Latisha Linda, PT - 11/03/2024 1:41 PM EDT SITUATION: only patient present during today's visit. patient reports the following since the last homecare visit: medications/allergies--no changes, no fall. patient reports i'm doing ok today, i actually gotmyself out of bed by myself today. BACKGROUND: Diagnoses (reason for Home Care): on 10/23/24-10/31/2024 . 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 Reviewed and explained homecare services. Plan of care, goals, and visit frequency developed, reviewed, and agreed upon with patient and/or caregiver. HOME: temporarily staying with her cousin- 1 story apt- 2 steps 1 rail entry. PTs home - 1st floor apt, no steps PLF: functionally indep w/o ad in home , cane for outings, + drive. H/o falls Patient Goal: get my strength back , go back to my own home Patient will benefit from continued physical therapy to address the following deficits: strength, balance, gait, endurance, transfers, stair negotiation and bed mobility. Current Discharge Plan:family support. Anticipate discharge by tbd RECOMMENDATION: Next visit to focus on establish HEP, ther ex, gait, transfers See intervention summary for intervention/education details. documented in this encounterKindred Healthcare03-13-2025 Patient's home Note* PT EVALUATION - Latisha Linda, PT - 11/03/2024 1:41 PM EDT SITUATION: only patient present during today's visit. patient reports the following since the last homecare visit: medications/allergies--no changes, no fall. patient reports i'm doing ok today, i actually gotmyself out of bed by myself today. BACKGROUND: Diagnoses (reason for Home Care): on 10/23/24-10/31/2024 . 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 Reviewed and explained homecare services. Plan of care, goals, and visit frequency developed, reviewed, and agreed upon with patient and/or caregiver. HOME: temporarily staying with her cousin- 1 story apt- 2 steps 1 rail entry. PTs home - 1st floor apt, no steps PLF: functionally indep w/o ad in home , cane for outings, + drive. H/o falls Patient Goal: get my strength back , go back to my own home Patient will benefit from continued physical therapy to address the following deficits: strength, balance, gait, endurance, transfers, stair negotiation and bed mobility. Current Discharge Plan:family support. Anticipate discharge by tbd RECOMMENDATION: Next visit to focus on establish HEP, ther ex, gait, transfers See intervention summary for intervention/education details. [facility] Work Phone: [phone]) [phone] Miscellaneous Notes* SN Routine - Danitza David RN - 11/03/2024 12:56 PM EDT SITUATION: Custodial routine visit completed today. only patient also present during today's visit. patient reports the following: Allergies--reviewed Medications--full medication reconciliation completed and reviewed current medications Falls--None DME-Reviewed and added to chart BACKGROUND: Reason for Home Care: Right antegrade nephrostogram with placement of right ureteral stent and replacement of right nephrostomy tube ASSESSMENT: SN greeted at door by patient utilizing walker and demonstrates stable gait. Patient appears in no acute distress. Patient/CG concerns verbalized today: none Vitals (see flow sheet for details): stable SN findings today: Reports no palpitations today. VS stable. BP slightly elevated. Patient took hermedications this morning. She reports no pain. SN changed the nephrostomy tube bandage. Blisters are still intact. Gauze and tegaderm used to pad and protect. Patient reports that she has some redness and sensitivity to the tongue. SN will ask for Nystatin. Nephro tube is capped at this time. Patient reports that her urine is yellow and it has not been that way in a while. No other issues or concerns at this time. See intervention summary for education details. Patient demonstrated a need for further skilled SN services for chronic disease management & education, medication education, wound/skin care, safety and infection control/prevention. Current Discharge plan: self-care and family support RECOMMENDATION: Next visit to focus on (be specific): cp assess, change dressing to nephro tube documented in this encounterKind[facility]03-13-2025 Patient's home Note* SN Routine - Danitza David RN - 11/03/2024 12:56 PM EDT SITUATION: Custodial routine visit completed today. only patient also present during today's visit. patient reports the following: Allergies--reviewed Medications--full medication reconciliation completed and reviewed current medications Falls--None DME-Reviewed and added to chart BACKGROUND: Reason for Home Care: Right antegrade nephrostogram with placement of right ureteral stent and replacement of right nephrostomy tube ASSESSMENT: SN greeted at door by patient utilizing walker and demonstrates stable gait. Patient appears in no acute distress. Patient/CG concerns verbalized today: none Vitals (see flow sheet for details): stable SN findings today: Reports no palpitations today. VS stable. BP slightly elevated. Patient took hermedications this morning. She reports no pain. SN changed the nephrostomy tube bandage. Blisters are still intact. Gauze and tegaderm used to pad and protect. Patient reports that she has some redness and sensitivity to the tongue. SN will ask for Nystatin. Nephro tube is capped at this time. Patient reports that her urine is yellow and it has not been that way in a while. No other issues or concerns at this time. See intervention summary for education details. Patient demonstrated a need for further skilled SN services for chronic disease management & education, medication education, wound/skin care, safety and infection control/prevention. Current Discharge plan: self-care and family support RECOMMENDATION: Next visit to focus on (be specific): cp assess, change dressing to nephro tube [facility] Work Phone: [phone]) [phone] Telephone encounter Note* Telephone Encounter - Bobby Grady MD - 11/02/2024 3:31 PM EDT Agree with above. Please let me know if any more tachycardia episodes. [facility]03-12-2025 Miscellaneous Notes* Telephone Encounter - Bobby Grady MD - 11/02/2024 3:31 PM EDT Agree with above. Please let me know if any more tachycardia episodes. * Telephone Encounter - Neela Magana RN - 11/02/2024 2:[address] Grady, SN SOC visit completed this date. Pt reports numbness of tongue overnight that worsened to nose. Caregiver administered antihistamine which resolved symptoms, pt denies this visit. Pt reports possible thrush while inpatient. Tongue is pink and without white patches noted. Pt also noted to be tachycardic (117-122). Took medications upon SN arrival *including amiodarone, metoprolol, losartan. Pt with irregular HR noted. Pt also with c/o heartburn that only slightly resolved with rollaids. SN contacted virtualist who did not feel necessary for pt to report to ED at this time. Educated pt regarding symptoms and when to seek prompt medical attention as well as scheduled SN visit for tomorrow for assessment. Pt noted to have 2 open blisters (stage 2 pressure injuries) on back r/t nephrostomy tube dressing.Photo obtained and foam adhesive bandage placed. Please advise as appropriate. Thank you for your time, Neela ALLEN, RN documented in this encounterKind[facility] Healthcare03-12-2025 Telephone encounter Note * Telephone Encounter - Neeal Magana RN - 11/02/2024 2:34 PM EDT Brendon Grady, SN SOC visit completed this date. Pt reports numbness of tongue overnight that worsened to nose. Caregiver administered antihistamine which resolved symptoms, pt denies this visit. Pt reports possible thrush while inpatient. Tongue is pink and without white patches noted. Pt also noted to be tachycardic (117-122). Took medications upon SN arrival *including amiodarone, metoprolol, losartan. Pt with irregular HR noted. Pt also with c/o heartburn that only slightly resolved with rollaids. SN contacted virtualist who did not feel necessary for pt to report to ED at this time. Educated pt regarding symptoms and when to seek prompt medical attention as well as scheduled SN visit for tomorrow for assessment. Pt noted to have 2 open blisters (stage 2 pressure injuries) on back r/t nephrostomy tube dressing.Photo obtained and foam adhesive bandage placed. Please advise as appropriate. Thank you for your time, Neela ALLEN, RN [facility]03-12-2025 Telephone encounter Note* Telephone Encounter - Neela Magana RN - 11/02/2024 12:50 PM EDT Brendon Osborn, Pt with R nephrostomy placed by Dr. Dash 10/28, now home with [facility]. No orders for management of nephrostomy tube. Will need the following clarified: - Dressing changes: what type, frequency - Flushes: to be completed? If so, how much and how often? Please advise regarding these necessary orders so education can be provided to pt/caregiver and supplies can be ordered for pt. Thank you, Neela ALLEN, RN [facility]03-12-2025 Miscellaneous Notes* Telephone Encounter - Neela Magana RN - 11/02/2024 12:[address] Osborn, Pt with R nephrostomy placed by Dr. Dash 10/28, now home with [facility]. No orders for management of nephrostomy tube. Will need the following clarified: - Dressing changes: what type, frequency - Flushes: to be completed? If so, how much and how often? Please advise regarding these necessary orders so education can be provided to pt/caregiver and supplies can be ordered for pt. Thank you, Neela ALLEN, RN documented in this encounterKindred Healthcare03-12-2025 NoteHNO ID: [id number] Author: FABIANA TORIBIO MD Service: ? Author Type: Physician Type: Progress Notes Filed: 11/02/2024 12:20 Note Text: Virtualist [facility] Note I have communicated my name and active licensure. The patient's identity and physical location were verified at the time of this visit. Either the patient or their legal procurement representative has been informed of the risks and benefits of -- and alternatives to -- treatment through a remote evaluation and consents to proceed with the evaluation remotely. Subjective/Objective: Homecare RN calling: Patient hospitalized 10/23- with sepsis, right ureteral calculus, afib with RVR. She reportedly feels well. P 110s, irregular. 120/65 Amiodarone began in hospital and continued. Taking eliquis Past medical history, past surgical history, family history and social history reviewed and updated as indicated in EMR. REVIEW OF SYSTEMS: Review of Systems VITAL SIGNS: (if available) There were no vitals taken for this visit. Physical Exam (if video visit was performed) Physical Exam Triage source: [facility] provider escalation: Was patient downgraded (i.e. disposition other than go to the ED was advised)? Yes Disposition: Patient remains at home; advised to schedule follow up with PCP Assessment/Plan: A total of 0 minutes was spent providing medical care using telemedicine. Mode of contact: Audio Only Visit Signed in as Primary Virtualist, Secondary Virtualist, or [facility] Telehealth provider: Secondary SIGNATURE: Fabiana Toribio MD PATIENT NAME: Aliyah Leach DATE: November 02, 2024 [facility]03-12-2025 History of Present illness Narrative* Fabiana Toribio MD - 11/02/2024 12:10 PM EDT Virtualist [facility] Note I have communicated my name and active licensure. The patient's identity and physical location wereverified at the time of this visit. Either the patient or their legal procurement representative has been informed of the risks and benefits of -- and alternatives to -- treatment through a remote evaluation andconsents to proceed with the evaluation remotely. Subjective/Objective: Homecare RN calling: Patient hospitalized with sepsis, right ureteral calculus, afib with RVR. She reportedly feels well. P 110s, irregular. 120/65 Amiodarone began in hospital and continued. Taking eliquis Past medical history, past surgical history, family history and social history reviewed and updatedas indicated in EMR. REVIEW OF SYSTEMS: Review of Systems VITAL SIGNS: (if available) There were no vitals taken for this visit. Physical Exam (if video visit was performed) Physical Exam Triage source: [facility] provider escalation: Was patient downgraded (i.e. disposition other than go to the ED was advised)? Yes Disposition: Patient remains at home; advised to schedule follow up with PCP Assessment/Plan: A total of 0 minutes was spent providing medical care using telemedicine. Mode of contact: Audio Only Visit Signed in as Primary Virtualist, Secondary Virtualist, or [facility] Telehealth provider: Secondary SIGNATURE: Fabiana Toribio MD PATIENT NAME: Aliyah Leach DATE: November 02, 2024 documented in this encounterKind[facility] Healthcare03-12-2025 Miscellaneous Notes* SN SOC - Neela Magana RN - 11/02/2024 10:41 AM EDT SITUATION: Custodial SOC visit completed today. daughter and cousin also present at various times duringtoday's visit. patient and caregiver reports the following: Allergies--reviewed Medications--full medication reconciliation completed Falls--None DME-Reviewed and added to chart Advance Directives: Patient does not have advance directives. Patient/Caregiver declined. Pt has papers to complete - just has not done so yet. Advance Directive information. BACKGROUND: Discharged/Referral from [facility] hospital on 10/31 following treatment for hydronephrosis with Encounter for surgical aftercare following surgery on the genitourinary system Pertinent referral information or other diagnoses that may affect plan of care: Afib with RVR whileinpatient, HTN, acute UTI, severe sepsis ASSESSMENT: SN greeted at door by caregiver. Upon entrance patient found in chair Patient appears in no acute distress. Patient lives at home with cousin temporarily. Home environment: clean and uncluttered. SOC booklet reviewed & completed with patient and consent obtained for Home Care services. Patient/CG concerns verbalized today: Daughter notes pt has high heart rate. Pt also reports having numbness of tongue overnight that worsened to nose being numb. Cousin administered antihistamine and symptoms resolved. Pt denies any of these symptoms this date. Vitals (see flow sheet for details): WDL except: Heart Rate: 117-122 (virtualist contacted, PCP made aware) SN findings today: Pt sitting up on couch upon SN arrival, pleasant and cooperative for today's vist. After reviewing SOC booklet and obtaining consent VS obtained and pt noted to be tachycardic withirregular HR. Pt then took all AM medications and SN rechecked several minutes later and HR ramainstachycardic. SN paged virtualist who did not advise ED at this time and for pt to monitor symptoms.SN educated pt re symptoms to report and when to seek emergency care. PCP also made aware. Medications reviewed and in home. Daughter helps manage. Pt staying with cousin for the time being so she has 24hour supervision, but has hopes of returning to home in near future where she lives independently. Pt using WW for ambulation and SN noted dyspnea with moderate exertion. Edema in BLE nonpitting, educated pt re: elevation, benefits of activity. Pt reports she is non-compliant with ADA diet, BG elevated this visit - pt reports this has been ongoing while inpatient and that she has not had her Trulicity dose in >1 week. Daughter to bring to temporary residence and pt to resume per DC instruc tions. SN educaetd pt to continue to monitor and report if BG remains elevated after resuming Trulicity. Daughter cuts pt's toenails and assesses feet regularly, no issues noted this visit. Pt walks barefoot, SN provided education regarding risks d/t diabetes and neuropathy - pt verbalized understanding. Pt noted to have stage 1 pressure injury to buttocks as well as 2 open blisters r/t nephrostomy dressing. Photos obtained. Pt putting zinc oxide on buttocks. SN placed foam adhesive bandage over blisters and nephrostomy site after cleansing. R nephrostomy sutured in place and capped at this time. SN sent Dr. Dash a message regarding nephrostomy care and orders as well as flushing orders (if indicated). Awaiting response. Pt c/o heartburn during SN visit and took 2 roll[address] with some relief. Dr. Grady made aware. Falls risk and safety precautions discussed, pt verbalized understanding. Pt needs assistance with safe mobility and performing ADLS d/t weakness, fatigue. See intervention summary for education details and skills performed. Plan of care and visit frequency established with patient and caregiver and plan of care agreed upon. Patient demonstrated a need for further skilled SN services for chronic disease management & education, wound care, nephrostomy care RECOMMENDATION: Visit Frequency: 2w4, 1w4 Need for additional services: Patient agreeable to PT and OT referrals. Patient declined N/A referrals. Additional concerns to be followed up on: tachycardia, nephrostomy tube management orders Next visit to focus on (be specific): c/p check, nephrostomy care and assessment/follow-up, medication review documented in this [facility]Kind[facility]03-12-2025 Patient's home Note* SN SOC - Neela Magana RN - 11/02/2024 10:41 AM EDT SITUATION: Custodial SOC visit completed today. daughter and cousin also present at various times duringtoday's visit. patient and caregiver reports the following: Allergies--reviewed Medications--full medication reconciliation completed Falls--None DME-Reviewed and added to chart Advance Directives: Patient does not have advance directives. Patient/Caregiver declined. Pt has papers to complete - just has not done so yet. Advance Directive information. BACKGROUND: Discharged/Referral from acute [facility] on 10[facility]31 following treatment for hydronephrosis with Encounter for surgical aftercare following surgery on the genitourinary system Pertinent referral information or other diagnoses that may affect plan of care: Afib with RVR whileinpatient, HTN, acute UTI, severe sepsis ASSESSMENT: SN greeted at door by caregiver. Upon entrance patient found in chair Patient appears in no acute distress. Patient lives at home with cousin temporarily. Home environment: clean and uncluttered. SOC booklet reviewed & completed with patient and consent obtained for Home Care services. Patient/CG concerns verbalized today: Daughter notes pt has high heart rate. Pt also reports having numbness of tongue overnight that worsened to nose being numb. Cousin administered antihistamine and symptoms resolved. Pt denies any of these symptoms this date. Vitals (see flow sheet for details): WDL except: Heart Rate: 117-122 (virtualist contacted, PCP made aware) SN findings today: Pt sitting up on couch upon SN arrival, pleasant and cooperative for today's vist. After reviewing SOC booklet and obtaining consent VS obtained and pt noted to be tachycardic withirregular HR. Pt then took all AM medications and SN rechecked several minutes later and HR ramainstachycardic. SN paged virtualist who did not advise ED at this time and for pt to monitor symptoms.SN educated pt re symptoms to report and when to seek emergency care. PCP also made aware. Medications reviewed and in home. Daughter helps manage. Pt staying with cousin for the time being so she has 24hour supervision, but has hopes of returning to home in near future where she lives independently. Pt using WW for ambulation and SN noted dyspnea with moderate exertion. Edema in BLE nonpitting, educated pt re: elevation, benefits of activity. Pt reports she is non-compliant with ADA diet, BG elevated this visit - pt reports this has been ongoing while inpatient and that she has not had her Trulicity dose in >1 week. Daughter to bring to temporary residence and pt to resume per DC instruc tions. SN educaetd pt to continue to monitor and report if BG remains elevated after resuming Trulicity. Daughter cuts pt's toenails and assesses feet regularly, no issues noted this visit. Pt walks barefoot, SN provided education regarding risks d/t diabetes and neuropathy - pt verbalized understanding. Pt noted to have stage 1 pressure injury to buttocks as well as 2 open blisters r/t nephrostomy dressing. Photos obtained. Pt putting zinc oxide on buttocks. SN placed foam adhesive bandage over blisters and nephrostomy site after cleansing. R nephrostomy sutured in place and capped at this time. SN sent Dr. Dash a message regarding nephrostomy care and orders as well as flushing orders (if indicated). Awaiting response. Pt c/o heartburn during SN visit and took 2 rollaids with some relief. Dr. Grady made aware. Falls risk and safety precautions discussed, pt verbalized understanding. Pt needs assistance with safe mobility and performing ADLS d/t weakness, fatigue. See intervention summary for education details and skills performed. Plan of care and visit frequency established with patient and caregiver and plan of care agreed upon. Patient demonstrated a need for further skilled SN services for chronic disease management & education, wound care, nephrostomy care RECOMMENDATION: Visit Frequency: 2w4, 1w4 Need for additional services: Patient agreeable to PT and OT referrals. Patient declined N/A referrals. Additional concerns to be followed up on: tachycardia, nephrostomy tube management orders Next visit to focus on (be specific): c/p check, nephrostomy care and assessment/follow-up, medication review [facility] Work Phone: [phone]) 137-873403-11-2025 NoteHNO ID: [id number] Author: BRITANY HERNANDEZ RN Service: ? Author Type: Registered Nurse Type: Progress Notes Filed: 11/01/2024 16:05 Note Text: Mis Specialist Management TCM Outreach PCP Update / Actionable Items N/A - No specialty updates needed Patient Source: In-Network Discharge Initial outreach: Non-Value Based Patient Outreach Summary: Feeling great! BS fasting 220, 183. Getting dressed and up and around. Patient discharged from Discharge date: 10/31 Admitted for: R flank pain; Severe sepsis. Readmission Risk: 16 Value-Based Contract: Non-Value Based Contact: Contact made with patient: Yes TCM Eligibility Documentation Program: Transitional Care Management Status: Cancelled TCM Cancelled - No longer eligible Effective Dates: unknown - 11/01/2024 Responsible Staff: No information to display Discharge date: 11/01/2024 (Program start) Date of initial contact: 11/01/2024 Initial contact Target status: Not completed Hi, my name is Britany Sr RN and I am calling from the [facility] on behalf of your Primary Care Provider, Bobby Grady MD. I understand you were recently in the hospital, so I am calling to check in with you to ensure you are feeling well now that you are home. May I ask you a few questions related to your hospital stay and well-being? Yes Spoke to: Patient Validation: Validated the person spoken to is actively involved in the patient's care. The patient was identified by Name and Date of . Symptoms: Are you feeling about the same, better or worse since leaving the hospital? Better Medications: Do you have any questions about taking your medications, including which medications you should be on, or do you need refills on your medications? No Discharge Instructions: Do you have any questions related to your most recent discharge from the hospital? No Social: We would like to make sure you have what you need so your basics needs are met - including your personal safety, food, housing and medications. Would you like to speak with a social work care team assistant to help give you support for any of these needs? No It can be normal to feel anxious or down during a time like this. Would you like to talk to a mental health professional about how you have been feeling? No Action Taken: No action taken Follow-Up Appointment: [Appointment / TCM Follow-up within 14 days] I would like to help you schedule a hospital follow-up virtual or telephone visit with your PCP. This is a great way for you to connect with your provider to ensure you have safely transitioned home. If you are agreeable, I will send your request to a aeronautical engineer who will contact and assist you with that appointment. This will give you an opportunity to ask any questions or address any concerns you may have with your PCP. Inform the patient that if they have any questions or concerns prior to that appointment, to call their PCP's office right away. Appointment Action: No action required; patient already has appointment scheduled. Britany Sr RN November 01, 2024 4:01 [facility]03-11-2025 History of Present illness Narrative* Britany Hernandez RN - 11/01/2024 12:16 PM EDT Mis Specialist Management TCM Outreach PCP Update / Actionable Items N/A - No specialty updates needed Patient Source: In-Network Discharge Initial outreach: Non-Value Based Patient Outreach Summary: Feeling great! BS fasting 220, 183. Getting dressed and up and around. Patient discharged from Discharge date: 10/31 Admitted for: R flank pain; Severe sepsis. Readmission Risk: 16 Value-Based Contract: Non-Value Based Contact: Contact made with patient: Yes TCM Eligibility Documentation Program: Transitional Care Management Status: Cancelled TCM Cancelled - No longer eligible Effective Dates: unknown - 11/01/2024 Responsible Staff: No information to display Discharge date: 11/01/2024 (Program start) Date of initial contact: 11/01/2024 Initial contact Target status: Not completed Hi, my name is Britany Sr RN and I am calling from the [facility] on behalf of your Primary Care Provider, Bobby Grady MD. I understand you were recently in the hospital, so I amcalling to check in with you to ensure you are feeling well now that you are home. May I ask you a few questions related to your hospital stay and well-being? Yes Spoke to: Patient Validation: Validated the person spoken to is actively involved in the patient's care. The patient was identified by Name and Date of . Symptoms: Are you feeling about the same, better or worse since leaving the hospital? Better Medications: Do you have any questions about taking your medications, including which medications you should be on, or do you need refills on your medications? No Discharge Instructions: Do you have any questions related to your most recent discharge from the hospital? No Social: We would like to make sure you have what you need so your basics needs are met - including your personal safety, food, housing and medications. Would you like to speak with a social work care team assistant to help give you support for any of these needs? No It can be normal to feel anxious or down during a time like this. Would you like to talk to a mental health professional about how you have been feeling? No Action Taken: No action taken Follow-Up Appointment: [Appointment / TCM Follow-up within 14 days] I would like to help you schedule a hospital follow-up virtual or telephone visit with your PCP. This is a great way for you to connect with your provider to ensure you have safely transitioned home.If you are agreeable, I will send your request to a aeronautical engineer who will contact and assist you with that appointment. This will give you an opportunity to ask any questions or address any concerns youmay have with your PCP. Inform the patient that if they have any questions or concerns prior to that appointment, to call their PCP's office right away. Appointment Action: No action required; patient already has appointment scheduled. Britany Sr RN November 01, 2024 4:01 PM documented in [facility] encounter[facility]03-11-2025 Telephone encounter Note * Telephone Encounter - Rowan Luz MA - 11/01/2024 11:41 AM EDT Left message for patient's daughter Rowan Luz MA [facility]03-11-2025 Telephone encounter Note* Telephone Encounter - Bobby Grady MD - 11/01/2024 10:42 AM EDT What the did in the hospital with her sugars and bp is quite common. Looking at her info, I think the current appt is appropriate. If she feels she needs to be seen sooner, would likely have to see another provider and usually we wait one to two weeks after discharge to get a good gauge of how doing. Monitor sugars at home. Do they have the ability to check bp. I think home health is following her and will let us know if bp is up as well. [facility]03-11-2025 Telephone encounter Note* Telephone Encounter - Jacqueline Apodaca LPN - 11/01/2024 9:51 AM EDT Pt's daughter calls to report that pt was in [facility] x 9 days. Pt was discharged 10/31. Daughter reports pt had multiple issues while in the hospital. F/u appt scheduled with pcp for 11/07/24 per daughter request. Daughter reports that pt does have an appt with [facility] on 12/05/24 as pt went into A-fib in hospital. Daughter is asking if provider can review hospital records to see if appt date is ok or if pt needssooner. Daughter reports at this time pt is worn out but doing ok. Daughter's concerns are bp spiking (in hospital they would put medication in IV if bp was high) andblood sugars being high (pt would be given insulin in hospital if blood sugars were high). Pt does not have insulin at home. Daughter is going to keep record of bp and blood sugar readings and will update the office if they are high. Jacqueline Apodaca LPN [facility]03-11-2025 NotePatient Outreach ([facility]) ALIYAH LEACH ([id number]) 1955 F Date Time Provider Department 11/01/24 BRITANY HERNANDEZ During your visit today, we recorded the following information about you: Britany Hernandez, RN 11/01/2024 4:05 PM Signed Mis Specialist Management TCM Outreach PCP Update / Actionable Items N/A - No specialty updates needed Patient Source: In-Network Discharge Initial outreach: Non-Value Based Patient Outreach Summary: Feeling great! BS fasting 220, 183. Getting dressed and up and around. Patient discharged from Discharge date: 10/31 Admitted for: R flank pain; Severe sepsis. Readmission Risk: 16 Value-Based Contract: Non-Value Based Contact: Contact made with patient: Yes TCM Eligibility Documentation Program: Transitional Care Management Status: Cancelled TCM Cancelled - No longer eligible Effective Dates: unknown - 11/01/2024 Responsible Staff: No information to display Discharge date: 11/01/2024 (Program start) Date of initial contact: 11/01/2024 Initial contact Target status: Not completed Hi, my name is Britany Sr RN and I am calling from the [facility] on behalf of your Primary Care Provider, Bobby Grady MD. I understand you were recently in the hospital, so I am calling to check in with you to ensure you are feeling well now that you are home. May I ask you a few questions related to your hospital stay and well-being? Yes Spoke to: Patient Validation: Validated the person spoken to is actively involved in the patient's care. The patient was identified by Name and Date of . Symptoms: Are you feeling about the same, better or worse since leaving the hospital? Better Medications: Do you have any questions about taking your medications, including which medications you should be on, or do you need refills on your medications? No Discharge Instructions: Do you have any questions related to your most recent discharge from the hospital? No Social: We would like to make sure you have what you need so your basics needs are met - including your personal safety, food, housing and medications. Would you like to speak with a social work care team assistant to help give you support for any of these needs? No It can be normal to feel anxious or down during a time like this. Would you like to talk to a mental health professional about how you have been feeling? No Action Taken: No action taken Follow-Up Appointment: [Appointment / TCM Follow-up within 14 days] I would like to help you schedule a hospital follow-up virtual or telephone visit with your PCP. This is a great way for you to connect with your provider to ensure you have safely transitioned home. If you are agreeable, I will send your request to a aeronautical engineer who will contact and assist you with that appointment. This will give you an opportunity to ask any questions or address any concerns you may have with your PCP. Inform the patient that if they have any questions or concerns prior to that appointment, to call their PCP's office right away. Appointment Action: No action required; patient already has appointment scheduled. Britany Sr RN November 01, 2024 4:01 PM Allergies As of Date: 11/01/2024 Noted Allergy Reaction DETROL (TOLTERODINE TARTRATE) 08/08/2005 2 - Rash PENICILLINS 08/08/2005 2 - Rash Comments: Tolerating piperacillin/tazobactam at [facility] in October 2024. AD PharmD Date Reviewed: 10/30/2024 Reviewed by: Doretha Schilling RN - Fully Assessed Reason for Visit: Transition Of Care [4074] Cmt: D/C 10/31 [facility] Prescriptions as of 11/01/2024 - apixaban (ELIQUIS) 5 mg tab(s) Take 1 tablet by mouth two times a day. - amiodarone (PACERONE) 200 mg tablet Take 2 tablets by mouth three times a day for 2 days. Then fill continuation order. - amiodarone (PACERONE) 200 mg tablet Take 1 tablet by mouth two times a day. Patient should start on November 03, 2024. - losartan (COZAAR) 25 mg tablet Take 1 tablet by mouth two times a day. - metoprolol succinate ER (TOPROL XL) 25 mg 24 hr tablet Take 1 tablet by mouth once daily. - magnesium oxide (MAG-OX) 400 mg (241.3 mg magnesium) tablet Take 1 tablet by mouth two times a day. - glimepiride (AMARYL) 4 mg tablet Take 4 mg by mouth daily at 6 pm. - omega-3 acid ethyl esters (LOVAZA) 1 gram capsule Take 2 g by mouth two times a day. - melatonin 3 mg capsules Take 10 mg by mouth daily at bedtime. - FLUoxetine (PROZAC) 40 mg capsule Take 1 capsule by mouth once daily. - metFORMIN (GLUCOPHAGE) 1,000 mg tablet Take 1 tablet by mouth two times a day with meals. - dulaglutide (TRULICITY) 1.5 mg/0.5 mL pen injector Inject 1.5 mg subcutaneously one time a week. Inject once per week. Discard Pen After - levothyroxine (SYNTHROID) 112 mcg tabl (more content not included)...[facility] [id number] Telephone encounter Note* Telephone Encounter - Shital Flores LPN - 10/31/2024 3:42 PM EDT Date/Time: 10/31/2024 3:44 PM Spoke with Nazia @ phone #: [phone] - Preferred # for contact: [phone] Have you received help from a home care company in the last 60 days? no Are you agreeable to [facility] services? yes [address] will we [place] [address] you at[address] Do you have any upcoming appointments or things we need to schedule around? no Do you have a teachable CG or can you manage your care independently? yes Who? family Have you received the flu shot? yes If so, when and where? PCP-09/2024 [facility]03-10-2025 Miscellaneous Notes* Telephone Encounter - Shital Flores LPN - 10/31/2024 3:42 PM EDT Date/Time: 10/31/2024 3:44 PM Spoke with Nazia @ phone #: [phone] - Preferred # for contact: [phone] Have you received help from a home care company in the last 60 days? no Are you agreeable to [facility] services? yes What address will we be seeing you at[address] Do you have any upcoming appointments or things we need to schedule around? no Do you have a teachable CG or can you manage your care independently? yes Who? family Have you received the flu shot? yes If so, when and where? PCP-09/2024 documented in this encounterKindred Healthcare03-10-2025 Telephone encounter Note * Telephone Encounter - Bobby Grady MD - 10/31/2024 2:57 PM EDT I can sign [facility]03-10-2025 Miscellaneous Notes* Telephone Encounter - Bobby Grady MD - 10/31/2024 2:57 PM EDT I can sign * Telephone Encounter - Shital Flroes LPN - 10/31/2024 2:23 PM EDT Bobby Grady MD Please advise if you are agreeable to signing and following for HHC services? Our Clinicians will be sending the Plan of Care to you for review and approval. They will reach out for any appropriate orders required to provide home care services for the patient. We are not able to initiate HHC services without a following provider. Home care clinicians may also obtain orders from [facility] Virtualist Providers Thank you and we would be happy to answer any questions. Shital Flores LPN 10/31/2024 2:23 PM documented in this encounterKindred Healthcare03-10-2025 Telephone encounter Note * Telephone Encounter - Shital Flores LPN - 10/31/2024 2:23 PM EDT Bobby Grady MD Please advise if you are agreeable to signing and following for HHC services? Our Clinicians will be sending the Plan of Care to you for review and approval. They will reach out for any appropriate orders required to provide home care services for the patient. We are not able to initiate HHC services without a following provider. Home care clinicians may also obtain orders from [facility] Virtualist Providers Thank you and we would be happy to answer any questions. Shital Flores LPN 10/31/2024 2:23 PM [facility]03-09-2025 [facility]03-09-2025 [facility]03-07-2025 [facility]03-06-2025 [facility] 10-27-2024 [facility]03-06-2025 [facility]03-05-2025 [facility]03-05-2025 [facility]03-05-2025 [facility]03-04-2025 [facility]03-04-2025 NoteHNO ID: [id number] Author: PATRICIA ZAMAN, RN Service: Nursing Author Type: Registered Nurse Type: Nursing Progress Note Filed: 10/25/2024 05:43 Note Text: Pt with sustained tachycardia. LIP notified. New orders received.03-03-2025 [facility]03-02-2025 NoteHNO ID: [id number] Author: ERNIE GRAMAJO, RN Service: Nursing Author Type: Registered Nurse Type: Nursing Progress Note Filed: 10/23/2024 20:18 Note Text: Dr Angulo updated on patient back to floor and requesting water, new orders placed for diet.03-02-2025 NoteHNO ID: [id number] Author: SIRI HODGES, SANTO Service: Nursing Author Type: Registered Nurse Type: Nursing Progress Note Filed: 10/23/2024 19:14 Note Text: 1.5mg Versed and 75mcg Fentanyl wasted with Dr. Mendez. 10-23-2024 NoteHNO ID: [id number] Author: ERNIE GRAMAJO, SANTO Service: Nursing Author Type: Registered Nurse Type: Nursing Progress Note Filed: 10/23/2024 15:54 Note Text: Dr Osborn into see patient at this time. States okay to remove greenberg [facility] NoteHNO ID: [id number] Author: ERNIE GRAMAJO, SANTO Service: Nursing Author Type: Registered Nurse Type: Nursing Progress Note Filed: 10/23/2024 11:21 Note Text: Dr Angulo in to see this patient at this time.03-02-2025 Note HNO ID: [id number] Author: ERNIE GRAMAJO, RN Service: Nursing Author Type: Registered Nurse Type: Nursing Progress Note Filed: 10/23/2024 10:19 Note Text: Dr Angulo updated on patient here and states will be in to see patient in around 20 min.03-02-2025 NoteHNO ID: [id number] Author: ERNIE GRAMAJO, SANTO Service: Nursing Author Type: Registered Nurse Type: Nursing Progress Note Filed: 10/23/2024 10:12 Note Text: Admitting Sound paged at this time regarding patient admission orders.03-02-2025 NoteHNO ID: [id number] Author: ERNIE GRAMAJO, RN Service: Nursing Author Type: Registered Nurse Type: Nursing Progress Note Filed: 10/23/2024 09:57 Note Text: Patient here to room 293-1 at this time. No complaints voiced at this time.03-02-2025 NoteHNO ID: [id number] Author: LUZ CONWAY RN Service: Nursing Author Type: Registered Nurse Type: Nursing Progress Note Filed: 10/23/2024 08:14 Note Text: Kay RN called from [facility] with Nurse to nurse report. 02-12-2025 Instructions* Patient Instructions* Ynes Cameron APRN.CNP - 10/05/2024 1:47 PM EST Schedule the carotid ultrasound. Schedule the mammogram. We'll let you know when we receive the lab results back. Recheck in 6 months, sooner if needed. documented in this encounterKindred Healthcare02-12-2025 NoteHNO ID: [id number] Author: YNES CAMERON APRN.CNP Service: ? Author Type: Nurse Practitioner Type: Progress Notes Filed: 10/07/2024 09:44 Note Text: This is a 69 year old female who presents today with: Patient presents with: 6 Month Exam HISTORY OF PRESENT ILLNESS: Aliyah Leach is a 69 year old female. Patient presents with: 6 Month Exam Refers due for colonoscopy. Refers that the person that was doing them retired. Hx of hemicolectomy. Refers that they generally have to use a special scope to be able to pass. Refers she has been lightheaded. Refers that when she lays in bed, the room kind of spins. Will feel that way when she is up, too. Fell in March. Admits to not drinking much water, drinks more tea. DM: Reports overall feeling well. Medication side effects: No. Home sugar checks: running higher. Hypoglycemic spells: No. Watching diet: No. Unexpected weight loss: No. Polyuria, polydipsia: Incontinent. Thirsty all the time. Admits to drinking a lot of ice tea (uses stevia). Vision Changes: problem with left eye -- follows with eye doctor and has return visit in March. . Foot lesions or numbness or pain: hardly any feeling in the feet. HYPERLIPIDEMIA: Patient is taking medications: Yes. Patient is watching diet: No. Patient denies myalgias: Yes. Patient denies gi upset: Yes Depression Controlled with prozac. A little worse typically in the winter. HYPOTHYROID: Patient is compliant with medications: Yes Patient has changes in energy: I just never have any. Patient has changes in hair or skin: dry skin. Loses hair. 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, S/P EBRT and HDR brachytherapy Malignant neoplasm of colon, unspecified site 1999 Colon cancer Obesity, unspecified Psoriasis Radiation 2005 for Cervical Cancer PAST SURGICAL HISTORY Procedure Laterality Date ARTHRP KNE CONDYLEANDPLATU MEDIALANDLAT COMPARTMENTS 2010 left knee ARTHRP KNE CONDYLEANDPLATU MEDIALANDLAT COMPARTMENTS 01/01/2015 Right knee BIOPSY BREAST OPEN INCISIONAL Bx of breast, incisional CHOLECYSTECTOMY 1987 Open cholecystectomy COLECTOMY PARTIAL W/ANASTOMOSIS 2000 Hemicolectomy COLONOSCOPY 10/2018 COLONOSCOPY FLX DX W/COLLJ SPEC WHEN PFRMD Colonoscopy COLONOSCOPY FLX DX W/COLLJ SPEC WHEN PFRMD 09/09/2005 Colonoscopy COLONOSCOPY FLX DX W/COLLJ SPEC WHEN PFRMD 11/15/2008 Colonoscopy COLONOSCOPY FLX DX W/COLLJ SPEC WHEN PFRMD 02/11/12, 03/2015 Repeat in 3 years (03/2018) DILATION AND CURETTAGE DXAND/THER NONOBSTETRIC 05/29/2011 Dilation AND curettage PAST SURGICAL HISTORY OF Rt port placement REMV CATARACT EXTRACAP,INSERT LENS Left 10/2021 REPAIR FIRST ABDOMINAL WALL HERNIA 2000 Hernia repair, incisional TOT ABD HYST W/PARAORTIC AND PELVIC LYMPH NODE MARK 06/19/2011 Exploratory laparotomy with extensive lysis of adhesions, total abdominal hysterectomy, bilateral salpingo- oophorectomy, cystoscopy, and omentectomy. ALLERGIES Detrol [Tolterodine Tartrate] and Penicillins MEDICATIONS Current Outpatient Medications Medication Sig FLUoxetine (PROZAC) 40 mg capsule Take 1 capsule by mouth once daily. metFORMIN (GLUCOPHAGE) 1,000 mg tablet Take 1 tablet by mouth two times a day with meals. dulaglutide (TRULICITY) 1.5 mg/0.5 mL pen injector Inject 1.5 mg subcutaneously one time a week. Inject once per week. Discard Pen After levothyroxine (SYNTHROID) 112 mcg tablet Take 1 tablet by mouth once daily. pravastatin (PRAVACHOL) 40 mg tablet Take 1 tablet by mouth daily at bedtime. vit C,Y-Op-ediam-lutein-zeaxan (PRESERVISION AREDS-2) 250-90-40-1 mg Take 1 capsule by mouth twice daily with meals. lactobacillus comb no.10 (PROBIOTIC) 20 billion cell cap Take by mouth. CYANOCOBALAMIN/COBAMAMIDE (B12 SUBLINGUAL) Dissolve under the tongue. Cholecalciferol, Vitamin D3, 25 mcg (1,000 unit) cap Take 1,000 Units by mouth once daily. blood sugar diagnostic (ACCU-CHEK ROBIN) test strip Use as instructed Lancets (ACCU-CHEK SOFTCLIX LANCETS) lancets Once daily. 250.40 Blood-Glucose Meter (ACCU-CHEK ROBIN PLUS METER) misc 1 Each once daily. multivitamin ORAL tablet Take 1 tablet by mouth once daily. No current facility-administered medications for this visit. FAMILY HISTORY Problem Relation Age of Onset Diabetes Mother Genitourinary () Mother renal failure (more content not included)...[facility]02-12-2025 History of Present illness Narrative* Ynes Cameron APRN.MIGRATORY GAME BIRD BIOLOGIST - 10/05/2024 1:21 PM EST This is a 69 year old female who presents today with: Patient presents with: 6 Month Exam HISTORY OF PRESENT ILLNESS: Aliyah Leach is a 69 year old female. Patient presents with: 6 Month Exam Refers due for colonoscopy. Refers that the person that was doing them retired. Hx of hemicolectomy. Refers that they generally have to use a special scope to be able to pass. Refers she has been lightheaded. Refers that when she lays in bed, the room kind of spins. Will feel that way when she is up, too. Fell in March. Admits to not drinking much water, drinks more tea. DM: Reports overall feeling well. Medication side effects: No. Home sugar checks: running higher. Hypoglycemic spells: No. Watching diet: No. Unexpected weight loss: No. Polyuria, polydipsia: Incontinent. Thirsty all the time. Admits to drinking a lot of ice tea (uses stevia). Vision Changes: problem with left eye -- follows with eye doctor and has return visit in March. . Foot lesions or numbness or pain: hardly any feeling in the feet. HYPERLIPIDEMIA: Patient is taking medications: Yes. Patient is watching diet: No. Patient denies myalgias: Yes. Patient denies gi upset: Yes Depression Controlled with prozac. A little worse typically in the winter. HYPOTHYROID: Patient is compliant with medications: Yes Patient has changes in energy: I just never have any. Patient has changes in hair or skin: dry skin. Loses hair. 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, S/P EBRT and HDR brachytherapy Malignant neoplasm of colon, unspecified site 1999 Colon cancer Obesity, unspecified Psoriasis Radiation 2006 for Cervical Cancer PAST SURGICAL HISTORY Procedure Laterality Date ARTHRP KNE CONDYLE&PLATU MEDIAL&LAT COMPARTMENTS 2010 left knee ARTHRP KNE CONDYLE&PLATU MEDIAL&LAT COMPARTMENTS 01/01/2015 Right knee BIOPSY BREAST OPEN INCISIONAL Bx of breast, incisional CHOLECYSTECTOMY 1987 Open cholecystectomy COLECTOMY PARTIAL W/ANASTOMOSIS 1999 Hemicolectomy COLONOSCOPY 10/2018 COLONOSCOPY FLX DX W/COLLJ SPEC WHEN PFRMD Colonoscopy COLONOSCOPY FLX DX W/COLLJ SPEC WHEN PFRMD 09/09/2005 Colonoscopy COLONOSCOPY FLX DX W/COLLJ SPEC WHEN PFRMD 11/15/2008 Colonoscopy COLONOSCOPY FLX DX W/COLLJ SPEC WHEN PFRMD 02/11/12, 03/2015 Repeat in 3 years (03/2018) DILATION & CURETTAGE DX&/THER NONOBSTETRIC 05/29/2011 Dilation & curettage PAST SURGICAL HISTORY OF Rt port placement REMV CATARACT EXTRACAP,INSERT LENS Left 10/2021 REPAIR FIRST ABDOMINAL WALL HERNIA 2000 Hernia repair, incisional TOT ABD HYST W/PARAORTIC & PELVIC LYMPH NODE MARK 06/19/2011 Exploratory laparotomy with extensive lysis of adhesions, total abdominal hysterectomy, bilateral salpingo- oophorectomy, cystoscopy, and omentectomy. ALLERGIES Detrol [Tolterodine Tartrate] and Penicillins MEDICATIONS Current Outpatient Medications Medication Sig FLUoxetine (PROZAC) 40 mg capsule Take 1 capsule by mouth once daily. metFORMIN (GLUCOPHAGE) 1,000 mg tablet Take 1 tablet by mouth two times a day with meals. dulaglutide (TRULICITY) 1.5 mg/0.5 mL pen injector Inject 1.5 mg subcutaneously one time a week. Inject once per week. Discard Pen After levothyroxine (SYNTHROID) 112 mcg tablet Take 1 tablet by mouth once daily. pravastatin (PRAVACHOL) 40 mg tablet Take 1 tablet by mouth daily at bedtime. vit C,M-Mm-uhbsx-lutein-zeaxan (PRESERVISION AREDS-2) 250-90-40-1 mg Take 1 capsule by mouth twice daily with meals. lactobacillus comb no.10 (PROBIOTIC) 20 billion cell cap Take by mouth. CYANOCOBALAMIN/COBAMAMIDE (B12 SUBLINGUAL) Dissolve under the tongue. Cholecalciferol, Vitamin D3, 25 mcg (1,000 unit) cap Take 1,000 Units by mouth once daily. blood sugar diagnostic (ACCU-CHEK ROBIN) test strip Use as instructed Lancets (ACCU-CHEK SOFTCLIX LANCETS) lancets Once daily. 250.40 Blood-Glucose Meter (ACCU-CHEK ROBIN PLUS METER) misc 1 Each once daily. multivitamin ORAL tablet Take 1 tablet by mouth once daily. No current facility-administered medications for this visit. FAMILY HISTORY Problem Relation Age of Onset Diabetes Mother Genitourinary () Mother renal failure Cancer Father rectal cancer Hypertension Sister Diabetes Sister Cancer Sister lymphoma, leukemia Diabetes Brother Breast Cancer Paternal Aunt diagnosed in her late 50's still alive and well Thyroid Cancer Niece/Nephew other (? kidney cancer) Nephew Social History Tobacco Use Smoking status: Never Smokeless tobacco: Never Vaping Use Vaping status: Never Used Substance Use Topics Alcohol use: Yes Comment: rarely Drug use: No EXAM: BP 126/74 Pulse 89 Resp 16 Wt 105.7 kg (233 lb) LMP 08/20/2005 SpO2 98% BMI 37.61 kg/m PHYSICAL EXAM: General Appearance: Well appearing, alert, in no acute distress, well-hydrated, well nourished.. Skin: Skin color, texture, turgor normal, no suspicious rashes or lesions. Head: Normocephalic, no masses, lesions, tenderness or abnormalities. Eyes: Anicteric sclera. Extraocular movements are intact. . Neck: Supple, no adenopathy; thyroid symmetric, normal size, no bruits. Lungs: Lungs clear to auscultation. No wheezing, rhonchi, rales.. Heart: RRR without murmur, gallop, or rubs. No ectopy. Abdomen: Abdomen soft, non-tender. Bowel sounds normal. No masses, organomegaly. Extremities: No deformities, edema, skin discoloration, clubbing or cyanosis. Good capillary refill. . Neurologic: Gait normal. ASSESSMENT/PLAN: 1. Type 2 diabetes mellitus without complication, without long-term current use of insulin (HCC) - ICD9: 250.00, ICD10: E11.9 (primary diagnosis) - Controlled - Continue current medications 2. Change in bowel habits - ICD9: 787.99, ICD10: R19.4 Due for scope - CONSULT TO GASTROENTEROLOGY 3. Encounter for immunization - ICD9: V03.89, ICD10: Z23 - INFLUENZA VACCINE, PRSV FREE, AGE 65+ YR, HIGH DOSE, TRIVALENT (FLUZONE HIGH-DOSE) - [employer] COVID-19 VACCINE AGE 12+ YR (COMIRNATY) 4. Hypothyroidism, unspecified type - ICD9: 244.9, ICD10: E03.9 Add tsh to labs - THYROID STIMULATING HORMONE 5. Mixed hyperlipidemia - ICD9: 272.2, ICD10: E78.2 Will get the carotid duplex d/t hyperlipidemia, dm. - [facility] CAROTID [facility]ER[facility] 6. Lightheadedness - ICD9: 780.4, ICD10: R42 As above. Increase water intake. - [facility] 7. Recurrent major depression in partial remission (HCC) - ICD9: 296.35, ICD10: F33.41 Stable on current medication regimen. Discussed treatment plan and patient voices understanding. Patient's questions answered appropriately. Medications and potential side effects were discussed and patient voices understanding. Return to the office as scheduled or as needed for worsening/no improvement. Ynes Cameron APRN.CNP documented in this encounter[facility]12-[facility]24 Telephone encounter Note * Telephone Encounter - Amparo Crowley APRN.CNP - 07/28/2024 5:55 PM EST The following approved medication requests have been transmitted electronically. Requested Prescriptions Pending Prescriptions Disp Refills FLUoxetine (PROZAC) 40 mg capsule 90 capsule 1 Sig: Take 1 capsule by mouth once daily. metFORMIN (GLUCOPHAGE) 1,000 mg tablet 180 tablet 1 Sig: Take 1 tablet by mouth two times a day with meals. Amparo Crowley APRN.CNP [facility]12-05-2024 Miscellaneous Notes* Telephone Encounter - Amparo Crowley APRN.CNP - 07/28/2024 5:55 PM EST The following approved medication requests have been transmitted electronically. Requested Prescriptions Pending Prescriptions Disp Refills FLUoxetine (PROZAC) 40 mg capsule 90 capsule 1 Sig: Take 1 capsule by mouth once daily. metFORMIN (GLUCOPHAGE) 1,000 mg tablet 180 tablet 1 Sig: Take 1 tablet by mouth two times a day with meals. Amparo Crowley APRN.CNP * Telephone Encounter - Radha San LPN - 07/28/2024 2:23 PM EST Prescription Refill Information The patient has been identified by name and date of : Yes Caregiver verified no other encounters exist for this prescription request: Yes Caregiver confirmed with patient/requestor that no other refills are due, in the near future, with this provider at this time: Yes The last office visit in the department: 04/04/24 Does the patient have a future office visit with this provider/department: Yes Requested Prescriptions Pending Prescriptions Disp Refills FLUoxetine (PROZAC) 40 mg capsule 90 capsule 1 Sig: Take 1 capsule by mouth once daily. metFORMIN (GLUCOPHAGE) 1,000 mg tablet 180 tablet 1 Sig: Take 1 tablet by mouth two times a day with meals. Radha San LPN July 28, 2024 2:23 PM documented in this encounterKind[facility]12-05-2024 Telephone encounter Note * Telephone Encounter - Radha San LPN - 07/28/2024 2:23 PM EST Prescription Refill Information The patient has been identified by name and date of : Yes Caregiver verified no other encounters exist for this prescription request: Yes Caregiver confirmed with patient/requestor that no other refills are due, in the near future, with this provider at this time: Yes The last office visit in the department: 04/04/24 Does the patient have a future office visit with this provider/department: Yes Requested Prescriptions Pending Prescriptions Disp Refills FLUoxetine (PROZAC) 40 mg capsule 90 capsule 1 Sig: Take 1 capsule by mouth once daily. metFORMIN (GLUCOPHAGE) 1,000 mg tablet 180 tablet 1 Sig: Take 1 tablet by mouth two times a day with meals. Radha San LPN July 28, 2024 2:[address] [facility]11-11-2024 Telephone encounter Note* Telephone Encounter - Radha San LPN - 07/04/2024 5:14 PM EST Prescription Refill Information The patient has been identified by name and date of : Yes Caregiver verified no other encounters exist for this prescription request: Yes Caregiver confirmed with patient/requestor that no other refills are due, in the near future, with this provider at this time: Yes The last office visit in the department: 04/04/24 Does the patient have a future office visit with this provider/department: Yes Requested Prescriptions Pending Prescriptions Disp Refills dulaglutide (TRULICITY) 1.5 mg/0.5 mL pen injector 8.5 mL 0 Sig: Inject 1.5 mg subcutaneously one time a week. Inject once per week. Discard Pen After Radha San LPN July 04, 2024 5:[address] [facility]11-11-2024 Miscellaneous Notes* Telephone Encounter - Radha San LPN - 07/04/2024 5:14 PM EST Prescription Refill Information The patient has been identified by name and date of : Yes Caregiver verified no other encounters exist for this prescription request: Yes Caregiver confirmed with patient/requestor that no other refills are due, in the near future, with this provider at this time: Yes The last office visit in the department: 04/04/24 Does the patient have a future office visit with this provider/department: Yes Requested Prescriptions Pending Prescriptions Disp Refills dulaglutide (TRULICITY) 1.5 mg/0.5 mL pen injector 8.5 mL 0 Sig: Inject 1.5 mg subcutaneously one time a week. Inject once per week. Discard Pen After Radha San LPN July 04, 2024 5:14 PM documented in this encounterKindred Healthcare09-26-2024 History of Present illness Narrative* Jo Ann Rubio APRN.MIGRATORY GAME BIRD BIOLOGIST - 05/19/2024 1:24 PM EDT Bulk Cooler Installer offered: Patient declines. Brewer is a 69 year old who presents for an annual gynecologic exam without complaints. Postmenopausal: Yes HRT use: No. Last Pap: 02/14/2022 normal HPV: 02/04/2022 negative History of abnormal pap: Yes Last mammogram: 2023 normal History of abnormal mammogram: No Sexually active: No OB History T3 L3 SAB0 IAB0 Ectopic0 Multiple0 Live Births0 Coding And Reimbursement Specialist History LMP: 08/20/2005, Hysterectomy Age at Menarche: Age at First : Age at Menopause: Coding And Reimbursement Specialist History Comments: Sexual Activity: Not Currently; Male; hysterectomy Contraception: Surgical 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, S/P EBRT and HDR brachytherapy Malignant neoplasm of colon, unspecified site 1999 Colon cancer Obesity, unspecified Psoriasis Radiation 2006 for Cervical Cancer PAST SURGICAL HISTORY Procedure Laterality Date ARTHRP KNE CONDYLE&PLATU MEDIAL&LAT COMPARTMENTS 2010 left knee ARTHRP KNE CONDYLE&PLATU MEDIAL&LAT COMPARTMENTS 01/01/2015 Right knee BIOPSY BREAST OPEN INCISIONAL Bx of breast, incisional CHOLECYSTECTOMY 1987 Open cholecystectomy COLECTOMY PARTIAL W/ANASTOMOSIS 1999 Hemicolectomy COLONOSCOPY 10/2018 COLONOSCOPY FLX DX W/COLLJ SPEC WHEN PFRMD Colonoscopy COLONOSCOPY FLX DX W/COLLJ SPEC WHEN PFRMD 09/09/2005 Colonoscopy COLONOSCOPY FLX DX W/COLLJ SPEC WHEN PFRMD 11/15/2008 Colonoscopy COLONOSCOPY FLX DX W/COLLJ SPEC WHEN PFRMD 02/11/12, 03/2015 Repeat in 3 years (03/2018) DILATION & CURETTAGE DX&/THER NONOBSTETRIC 05/29/2011 Dilation & curettage PAST SURGICAL HISTORY OF Rt port placement REMV CATARACT EXTRACAP,INSERT LENS Left 10/2021 REPAIR FIRST ABDOMINAL WALL HERNIA 2000 Hernia repair, incisional TOT ABD HYST W/PARAORTIC & PELVIC LYMPH NODE MARK 06/19/2011 Exploratory laparotomy with extensive lysis of adhesions, total abdominal hysterectomy, bilateral salpingo- oophorectomy, cystoscopy, and omentectomy. FAMILY HISTORY Problem Relation Age of Onset Diabetes Mother Genitourinary () Mother renal failure Cancer Father rectal cancer Hypertension Sister Diabetes Sister Cancer Sister lymphoma, leukemia Diabetes Brother Breast Cancer Paternal Aunt diagnosed in her late 50's still alive and well Thyroid Cancer Niece/Nephew other (? kidney cancer) Nephew SOCIAL HISTORY Social History Tobacco Use Smoking status: Never Smokeless tobacco: Never Vaping Use Vaping status: Never Used Substance Use Topics Alcohol use: Yes Comment: rarely Drug use: No REVIEW OF SYSTEMS Abdomen: No abdominal pain, nausea, vomiting, diarrhea, or constipation. No bloating, early satiety, indigestion, or increased flatulence. Bladder: No dysuria, gross hematuria, urinary frequency, urinary urgency, +incontinence Breast: No breast lumps, nipple d/c, overlying skin changes, redness or skin retraction Allergies and current medication updated:Yes SENSITIVE EXAM: The sensitive examination was discussed with the Patient or Patient's Authorized Toll Line Inspector. As applicable, any other physician, advance practice provider, medical student, or other health professional student that will be observing or involved in the sensitive examination for educational or training purposes was discussed with the Patient or Authorized Toll Line Inspector. The Patient or Authorized Toll Line Inspector has agreed to proceed with the sensitive examination. (Sensitive examination includes inspection and/or palpation of the breasts, pelvis, prostate and anorectal regions). EXAM: BP 132/78 Ht 5' 6 (1.68m) Wt 237 lb (107.5kg) LMP 08/20/2005 BMI 38.27 kg/(m^2). GENERAL: pleasant, female in no apparent distress HEENT: Normocephalic, atraumatic, mucus membranes moist, and no lesions NECK: Supple, full range of motion, no adenopathy, and thyroid normal DERMATOLOGY: Normal, without lesions, non-icteric, and non-hirsute BREAST: soft, non-tender, symmetric, no dominant mass, normal nipple-areolar complex, no lymphadenopathy, and no nipple discharge CHEST: Normal inspiratory effort ABDOMEN: soft, non-tender, and no masses PELVIC: external genitalia normal, normal Bartholin's glands, urethra, [place]'s glands, no vulvar lesions, physiologic discharge present, normal appearing perineal body and perianal region, cervix surgically absent BIMANUAL: no adnexal masses, non-tender, and uterus surgically absent RECTOVAGINAL: deferred. NEURO: alert and oriented x3,exam grossly non-focal EXTREMITIES: normal ASSESSMENT/PLAN: 1) Health maintenance: Pap done with HPV. Mammogram ordered Nutrition, exercise and routine health maintenance exams reviewed. Calcium/Vitamin D supplementation information provided. Colon cancer screening: up to date with screening BMD: up to date 2) Follow up one year or sooner as needed Jo Ann Rubio APRN.MIGRATORY GAME BIRD BIOLOGIST documented in this encounterKindred [facility]08-30-2024 Telephone encounter Note * Telephone Encounter - Alexandro Wilkins LPN - 04/22/2024 3:47 PM EDT Prescription Refill Information The patient has been identified by name and date of : Yes Caregiver verified no other encounters exist for this prescription request: Yes Caregiver confirmed with patient/requestor that no other refills are due, in the near future, with this provider at this time: Yes The last office visit in the department: 04/04/24 Does the patient have a future office visit with this provider/department: Yes, 10/05/24 Requested Prescriptions Pending Prescriptions Disp Refills FLUoxetine (PROZAC) 40 mg capsule 90 capsule 1 Sig: Take 1 capsule by mouth once daily. metFORMIN (GLUCOPHAGE) 1,000 mg tablet 180 tablet 1 Sig: Take 1 tablet by mouth two times a day with meals. *Last rx written for both scripts 01/25/24. Both rx(s) written for 90 day supply with 1 refill. Pt isnot due for refill. message to pt advising of the same. Alexandro Wilkins LPN April 22, 2024 3:47 PM [facility]08-30-2024 Miscellaneous Notes* Telephone Encounter - Alexandro Wilkins LPN - 04/22/2024 3:47 PM EDT Prescription Refill Information The patient has been identified by name and date of : Yes Caregiver verified no other encounters exist for this prescription request: Yes Caregiver confirmed with patient/requestor that no other refills are due, in the near future, with this provider at this time: Yes The last office visit in the department: 04/04/24 Does the patient have a future office visit with this provider/department: Yes, 10/05/24 Requested Prescriptions Pending Prescriptions Disp Refills FLUoxetine (PROZAC) 40 mg capsule 90 capsule 1 Sig: Take 1 capsule by mouth once daily. metFORMIN (GLUCOPHAGE) 1,000 mg tablet 180 tablet 1 Sig: Take 1 tablet by mouth two times a day with meals. *Last rx written for both scripts 01/25/24. Both rx(s) written for 90 day supply with 1 refill. Pt isnot due for refill. message to pt advising of the same. Alexandro Wilkins LPN April 22, 2024 3:47 PM documented in this encounterKindred Healthcare08-12-2024 Instructions* Patient Instructions* Ynes Cameron APRN.CNP - 04/04/2024 1:56 PM EDT Continue the same medications. Schedule with dermatology ([facility]). 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 Moist heat/ice to the back. Let us know if no continued improvement. Recheck in 6 months -- get fasting labs prior. documented in this encounterKindred [facility]08-12-2024 History of Present illness Narrative* Ynes Cameron APRN.CNP - 04/04/2024 1:28 PM EDT This is a 69 year old female who presents today with: Patient presents with: 6 Month Exam HISTORY OF PRESENT ILLNESS: Aliyah Leach is a 69 year old female. Patient presents with: 6 Month Exam Pt presents today for 6 month follow-up. DM: Reports overall feeling well. Medication side effects: No. Home sugar checks: yes -- 130's. Hypoglycemic spells: No. Watching diet: tries to. Unexpected weight loss: No. Polyuria, polydipsia: always thirsty. Drinks unsweetened ice tea with stevia. Vision Changes: has appt scheduled at the end of the month. Foot lesions or numbness or pain: I have no feeling in my feet.. HYPERLIPIDEMIA: Patient is taking medications: Yes. Patient is watching diet: Yes. Patient denies myalgias: Yes. Patient denies gi upset: No HYPOTHYROID: Patient is compliant with medications: Yes Patient has changes in energy: No Patient has changes in hair or skin: No Patient has temperature intolerance: doesn't like heat or cold extremes. Patient has weight changes: No Mood: Mood has been pretty good -- stable on prozac. Fell last Thursday. Fell down before proceeding down 4 steps. Has pain in the back. Taking ASA and putting Aspercreme on the area. Feels some spasms. PAST MEDICAL HISTORY: PAST MEDICAL HISTORY No date: Benign neoplasm of colon No date: Colon cancer (HCC) No date: Depression No date: Diabetes (HCC) Comment: type II No date: Diarrhea 2010: Endometrial cancer (HCC) Comment: hysterectomy, b/l SPO, omentectomy, DERRELL, and chemo No date: Gall stones No date: Hernia No date: Hernia of unspecified site of abdominal cavity without mention of obstruction or gangrene No date: Hives No date: Hyperlipidemia No date: Hypertension No date: Hypothyroidism No date: Incontinence Comment: urine No date: Kidney stones 10/2005: Malignant neoplasm of cervix uteri, unspecified site Comment: Stage IB1 endocervical adenocarcinoma, S/P EBRT and HDR brachytherapy 1999: Malignant neoplasm of colon, unspecified site Comment: Colon cancer No date: Obesity, unspecified No date: Psoriasis 2006: Radiation Comment: for Cervical Cancer PAST SURGICAL HISTORY 2011: ARTHRP KNE CONDYLE&PLATU MEDIAL&LAT COMPARTMENTS Comment: left knee 01/01/2015: ARTHRP KNE CONDYLE&PLATU MEDIAL&LAT COMPARTMENTS Comment: Right knee No date: BIOPSY BREAST OPEN INCISIONAL Comment: Bx of breast, incisional 1988: CHOLECYSTECTOMY Comment: Open cholecystectomy 1999: COLECTOMY PARTIAL W/ANASTOMOSIS Comment: Hemicolectomy 10/2018: COLONOSCOPY No date: COLONOSCOPY FLX DX W/COLLJ SPEC WHEN PFRMD Comment: Colonoscopy 09/09/2005: COLONOSCOPY FLX DX W/COLLJ SPEC WHEN PFRMD Comment: Colonoscopy 11/15/2008: COLONOSCOPY FLX DX W/COLLJ SPEC WHEN PFRMD Comment: Colonoscopy 02/11/12, 03/2015: COLONOSCOPY FLX DX W/COLLJ SPEC WHEN PFRMD Comment: Repeat in 3 years (03/2018) 05/29/2011: DILATION & CURETTAGE DX&/THER NONOBSTETRIC Comment: Dilation & curettage : PAST SURGICAL HISTORY OF Comment: Rt port placement 10/2021: REMV CATARACT EXTRACAP,INSERT LENS; Left 2000: REPAIR FIRST ABDOMINAL WALL HERNIA Comment: Hernia repair, incisional 06/19/2011: TOT ABD HYST W/PARAORTIC & PELVIC LYMPH NODE MARK Comment: Exploratory laparotomy with extensive lysis of adhesions, total abdominal hysterectomy, bilateral salpingo- oophorectomy, cystoscopy, and omentectomy. ALLERGIES Detrol [Tolterodine Tartrate] and Penicillins MEDICATIONS Current Outpatient Medications Medication Sig dulaglutide (TRULICITY) 1.5 mg/0.5 mL pen injector Inject 1.5 mg subcutaneously one time a week. Inject once per week. Discard Pen After levothyroxine (SYNTHROID) 112 mcg tablet Take 1 tablet by mouth once daily. pravastatin (PRAVACHOL) 40 mg tablet Take 1 tablet by mouth daily at bedtime. FLUoxetine (PROZAC) 40 mg capsule Take 1 capsule by mouth once daily. metFORMIN (GLUCOPHAGE) 1,000 mg tablet Take 1 tablet by mouth two times a day with meals. nystatin-triamcinolone (MYCOLOG) ointment Apply sparingly to perineum twice daily for irritation/infection. (Patient not taking: Reported on 10/05/2023) vit C,Z-Xz-vxcoe-lutein-zeaxan (PRESERVISION AREDS-2) 250-90-40-1 mg Take 1 capsule by mouth twice daily with meals. lactobacillus comb no.10 (PROBIOTIC) 20 billion cell cap Take by mouth. CYANOCOBALAMIN/COBAMAMIDE (B12 SUBLINGUAL) Dissolve under the tongue. Cholecalciferol, Vitamin D3, 25 mcg (1,000 unit) cap Take 1,000 Units by mouth once daily. blood sugar diagnostic (ACCU-CHEK ROBIN) test strip Use as instructed Lancets (ACCU-CHEK SOFTCLIX LANCETS) lancets Once daily. 250.40 Blood-Glucose Meter (ACCU-CHEK ROBIN PLUS METER) misc 1 Each once daily. multivitamin ORAL tablet Take 1 tablet by mouth once daily. No current facility-administered medications for this visit. FAMILY HISTORY Problem Relation Age of Onset Diabetes Mother Genitourinary () Mother renal failure Cancer Father rectal cancer Hypertension Sister Diabetes Sister Cancer Sister lymphoma, leukemia Diabetes Brother Breast Cancer Paternal Aunt diagnosed in her late 50's still alive and well Thyroid Cancer Niece/Nephew other (? kidney cancer) Nephew Social History Tobacco Use Smoking status: Never Smokeless tobacco: Never Vaping Use Vaping Use: Never used Substance Use Topics Alcohol use: Yes Comment: rarely Drug use: No EXAM: BP 132/86 Pulse 87 Resp 16 Wt 106.6 kg (235 lb) LMP 08/20/2005 SpO2 95% BMI 40.34 kg/m PHYSICAL EXAM: General Appearance: Well appearing, alert, in no acute distress, well-hydrated, well nourished.. Skin: Skin color, texture, turgor normal, raised flesh color papular lesion on the nose. Head: Normocephalic, no masses, lesions, tenderness or abnormalities. Eyes: Anicteric sclera. Extraocular movements are intact. . Neck: Supple, no adenopathy; thyroid symmetric, normal size, no bruits. Lungs: Lungs clear to auscultation. No wheezing, rhonchi, rales.. Heart: RRR without murmur, gallop, or rubs. No ectopy. Abdomen: Abdomen soft, non-tender. Bowel sounds normal. No masses, organomegaly. Extremities: No deformities, edema, skin discoloration, clubbing or cyanosis. Good capillary refill. . Neurologic: Gait normal. Feet:Shoes and socks removed, No deformities, ulcers, calluses, normal distal pulses, and not sensitive to monofilament on the plantar aspect of feet and distal left foot ASSESSMENT/PLAN: 1. Type 2 diabetes mellitus without complication, without long-term current use of insulin (HCC) - ICD9: 250.00, ICD10: E11.9 (primary diagnosis) - Controlled - Continue current medications - ALBUMIN/CREATININE RATIO, URINE - HEMOGLOBIN A1C 2. Skin lesion - ICD9: 709.9, ICD10: L98.9 Likely will need bx. - CONSULT TO DERMATOLOGY 3. Endometrial cancer (HCC) - ICD9: 182.0, ICD10: C54.1 - CONSULT TO GYNECOLOGY 4. History of cervical cancer - ICD9: V10.41, ICD10: Z85.41 - CONSULT TO GYNECOLOGY Hx of cervical cancer less than 20 years ago. 5. Mixed hyperlipidemia - ICD9: 272.2, ICD10: E78.2 - Controlled - Continue current medications - Counseled on healthy diet and regular exercise - LIPID PANEL BASIC - COMPREHENSIVE METABOLIC PANEL 6. Recurrent major depression in partial remission (HCC) - ICD9: 296.35, ICD10: F33.41 Stable. 7. Hypothyroidism, unspecified type - ICD9: 244.9, ICD10: E03.9 Stable. Discussed treatment plan and patient voices understanding. Patient's questions answered appropriately. Medications and potential side effects were discussed and patient voices understanding. Return to the office as scheduled or as needed for worsening/no improvement. Ynes Cameron APRN.MIGRATORY GAME BIRD BIOLOGIST documented in this encounterKind[facility]08-[facility]24 Telephone encounter Note * Telephone Encounter - Eleanor Martinez LPN - 03/31/2024 1:43 PM EDT Pt notified, voiced understanding. Eleanor Martinez LPN [facility]08-08-[facility]24 Telephone encounter Note* Telephone Encounter - Eleanor Martinez LPN - 03/31/2024 1:43 PM EDT ----- Message from Amparo Crowley APRN.MIGRATORY GAME BIRD BIOLOGIST sent at 03/31/2024 1:10 PM EDT ----- Cholesterol levels look good on pravastatin. Watch the saturated fats in your diet by eliminating fried foods and choosing only lean meat/skim dairy products. Your HDL, good cholesterol, is a little low. Try to add into your diet whole grains, purple grape juice, nuts or peanut butter, and soy. That will raise your protection against heart disease. Kidney function, liver function, and blood counts look good. Hemoglobin A1c indicates diabetes is well-controlled. Good job. [facility]08-08-2024 Miscellaneous Notes* Telephone Encounter - Eleanor Martinez LPN - 03/31/2024 1:43 PM EDT Pt notified, voiced understanding. Eleanor Martinez LPN * Telephone Encounter - Eleanor Martinez LPN - 03/31/2024 1:43 PM EDT ----- Message from Amparo Crowley APRN.MIGRATORY GAME BIRD BIOLOGIST sent at 03/31/2024 1:10 PM EDT ----- Cholesterol levels look good on pravastatin. Watch the saturated fats in your diet by eliminating fried foods and choosing only lean meat/skim dairy products. Your HDL, good cholesterol, is a little low. Try to add into your diet whole grains, purple grape juice, nuts or peanut butter, and soy. That will raise your protection against heart disease. Kidney function, liver function, and blood counts look good. Hemoglobin A1c indicates diabetes is well-controlled. Good job. documented in this encounterKindred [facility]08-06-2024 Telephone encounter Note * Telephone Encounter - Amparo Scott LPN - 03/29/2024 2:28 PM EDT Prescription Refill Information The patient has been identified by name and date of : Yes Caregiver verified no other encounters exist for this prescription request: Yes Caregiver confirmed with patient/requestor that no other refills are due, in the near future, with this provider at this time: Yes The last office visit in the department: 10/05/2023 Does the patient have a future office visit with this provider/department: No Requested Prescriptions Pending Prescriptions Disp Refills dulaglutide (TRULICITY) 1.5 mg/0.5 mL pen injector 8.5 mL 0 Sig: Inject 1.5 mg subcutaneously one time a week. Inject once per week. Discard Pen After Amparo Scott LPN March 29, 2024 2:29 PM [facility]08-06-2024 Miscellaneous Notes* Telephone Encounter - Amparo Scott LPN - 03/29/2024 2:28 PM EDT Prescription Refill Information The patient has been identified by name and date of : Yes Caregiver verified no other encounters exist for this prescription request: Yes Caregiver confirmed with patient/requestor that no other refills are due, in the near future, with this provider at this time: Yes The last office visit in the department: 10/05/2023 Does the patient have a future office visit with this provider/department: No Requested Prescriptions Pending Prescriptions Disp Refills dulaglutide (TRULICITY) 1.5 mg/0.5 mL pen injector 8.5 mL 0 Sig: Inject 1.5 mg subcutaneously one time a week. Inject once per week. Discard Pen After Amparo Scott LPN March 29, 2024 2:29 PM documented in this encounterKindred Healthcare07-19-2024 Telephone encounter Note * Telephone Encounter - Radha San LPN - 03/11/2024 2:24 PM EDT Prescription Refill Information The patient has been identified by name and date of : Yes Caregiver verified no other encounters exist for this prescription request: Yes Caregiver confirmed with patient/requestor that no other refills are due, in the near future, with this provider at this time: Yes The last office visit in the department: 11/03/23 Does the patient have a future office visit with this provider/department: Yes Requested Prescriptions Pending Prescriptions Disp Refills levothyroxine (SYNTHROID) 112 mcg tablet 90 tablet 3 Sig: Take 1 tablet by mouth once daily. Radha San LPN March 11, 2024 2:25 PM [facility]07-19-2024 Miscellaneous Notes* Telephone Encounter - Radha San LPN - 03/11/2024 2:24 PM EDT Prescription Refill Information The patient has been identified by name and date of : Yes Caregiver verified no other encounters exist for this prescription request: Yes Caregiver confirmed with patient/requestor that no other refills are due, in the near future, with this provider at this time: Yes The last office visit in the department: 11/03/23 Does the patient have a future office visit with this provider/department: Yes Requested Prescriptions Pending Prescriptions Disp Refills levothyroxine (SYNTHROID) 112 mcg tablet 90 tablet 3 Sig: Take 1 tablet by mouth once daily. Radha San LPN March 11, 2024 2:25 PM documented in this encounterKindred Healthcare06-20-2024 Telephone encounter Note * Telephone Encounter - Oumou Ramirez LPN - 02/11/2024 7:38 AM EDT The patient has been identified by name and date of : Yes Caregiver verified no other encounters exist for this prescription request: Yes Caregiver confirmed with patient/requestor that no other refills are due, in the near future, with this provider at this time: Yes The last office visit in the department: 11/03/2023 Does the patient have a future office visit with this provider/department: Yes 04/04/2024 Requested Prescriptions Pending Prescriptions Disp Refills pravastatin (PRAVACHOL) 40 mg tablet 90 tablet 3 Sig: Take 1 tablet by mouth daily at bedtime. Oumou Ramirez LPN February 11, 2024 7:38 AM [facility]06-20-[facility] Miscellaneous Notes* Telephone Encounter - Oumou Ramirez LPN - 02/11/2024 7:38 AM EDT The patient has been identified by name and date of : Yes Caregiver verified no other encounters exist for this prescription request: Yes Caregiver confirmed with patient/requestor that no other refills are due, in the near future, with this provider at this time: Yes The last office visit in the department: 11/03/2023 Does the patient have a future office visit with this provider/department: Yes 04/04/2024 Requested Prescriptions Pending Prescriptions Disp Refills pravastatin (PRAVACHOL) 40 mg tablet 90 tablet 3 Sig: Take 1 tablet by mouth daily at bedtime. Oumou Ramirez LPN February 11, 2024 7:38 AM documented in this encounterKindred Healthcare06-19-2024 History of Present illness Narrative* My Workman MA - 02/10/2024 1:53 PM EDT POPULATION HEALTH NAVIGATION OUTREACH Action/FYI Patient is on [facility] CURRENT ROSTER Workbench list for below and needs appointment to address: RSV Vaccine(1 - 1-dose 60+ series) Dilated Retinal Exam Covid-19 Vaccine(2022- season) Advance Directive Discussion Colorectal Cancer Screening Hemoglobin A1C Date Value 10/02/2023 5.8 % 08/26/2022 5.7 09/19/2021 6.9 % Patient due for: Medicare Annual Wellness Visit Colorectal Cancer Screening Diabetic Eye Exam Advance Directives Upcoming OV converted per [place] protocol to AWV. Updated notes to address due care gap and HCC gapclosure Cologuard found in care everywhere - negative result and repeat in 3 years. HM updated. Eye exam outside [facility] - currently scheduled outside [facility] for end march No AD -- sent information via [employer] for patient to review. Reason for Outreach Care Gap/HCC or Scheduling Wellness Visits Care Gaps due: Medicare Annual Wellness Visit Colorectal Cancer Screening Diabetic Eye Exam Advance Directives Patient Contacted: Spoke to patient/parent/or legal guardian Patient identified by name and : Yes Care Gap/HCC/Scheduling Wellness actions taken: Patient declined: Not interested in scheduling HCC related Navigation Signature: My Workman MA February 10, 2024 1:53 PM documented in this encounterKindred Healthcare06-03-2024 Telephone encounter Note * Telephone Encounter - Radha San LPN - 01/25/2024 12:30 PM EDT Patient phones requesting refills as follows: Requested Prescriptions Pending Prescriptions Disp Refills FLUoxetine (PROZAC) 40 mg capsule 90 capsule 1 Sig: Take 1 capsule by mouth once daily. Please review and advise. Radha San LPN [facility]06-03-2024 Miscellaneous Notes* Telephone Encounter - Radha San LPN - 01/25/2024 12:30 PM EDT Patient phones requesting refills as follows: Requested Prescriptions Pending Prescriptions Disp Refills FLUoxetine (PROZAC) 40 mg capsule 90 capsule 1 Sig: Take 1 capsule by mouth once daily. Please review and advise. Radha San LPN documented in this encounterKindred Healthcare06-03-2024 Telephone encounter Note * Telephone Encounter - Radha San LPN - 01/25/2024 12:29 PM EDT Patient phones requesting refills as follows: Requested Prescriptions Pending Prescriptions Disp Refills metFORMIN (GLUCOPHAGE) 1,000 mg tablet 180 tablet 1 Sig: Take 1 tablet by mouth two times a day with meals. DANGELO 11/03/23 Scheduled 04/04/24 Please review and advise. Radha San LPN [facility] Miscellaneous Notes* Telephone Encounter - Radha San LPN - 01/25/2024 12:29 PM EDT Patient phones requesting refills as follows: Requested Prescriptions Pending Prescriptions Disp Refills metFORMIN (GLUCOPHAGE) 1,000 mg tablet 180 tablet 1 Sig: Take 1 tablet by mouth two times a day with meals. DANGELO 11/03/23 Scheduled 04/04/24 Please review and advise. Radha San LPN documented in this encounterKindred Healthcare05-06-2024 Telephone encounter Note * Telephone Encounter - Amparo Scott LPN - 12/28/2023 2:47 PM EDT Form faxed to [facility] Miscellaneous Notes* Telephone Encounter - Amparo Scott LPN - 12/28/2023 2:47 PM EDT Form faxed to [facility] * Telephone Encounter - Valerie Yeboah PA-C - 12/28/2023 2:25 PM EDT Completed and placed on nursing desk Isiah Nation PA-C * Telephone Encounter - Radha San LPN - 12/25/2023 4:07 PM EDT Type of form: Prior Authorization Form received via walk in When form is completed, Fax form to [place] Form has been forwarded to [facility] Radha San LPN Spoke with patient and she talked to Adrianna they have the 1.5mg back in stock. Patient asking to have 1.5mg reordered instead of the 0.75mg please? documented in this encounterKindred Healthcare05-06-2024 Telephone encounter Note * Telephone Encounter - Valerie Yeboah PA-C - 12/28/2023 2:25 PM EDT Completed and placed on nursing desk Isiah Nation PA-C [facility]05-03-2024 Telephone encounter Note* Telephone Encounter - Radha San LPN - 12/25/2023 4:07 PM EDT Type of form: Prior Authorization Form received via walk in When form is completed, Fax form to [place] Form has been forwarded to [facility] Radha San LPN Spoke with patient and she talked to Adrianna they have the 1.5mg back in stock. Patient asking to have 1.5mg reordered instead of the 0.75mg please? [facility]04-05-[facility] Miscellaneous Notes* Telephone Encounter - Michael Zamora MA - 11/27/2023 12:10 PM EDT [facility]. Patient is not due until January. Michael Zamora MA documented in this encounterKindred Healthcare04-04-2024 Miscellaneous Notes* Telephone Encounter - Radha San LPN - 11/26/2023 4:02 PM EDT Faxed as requested. * Telephone Encounter - Valerie Yeboah PA-C - 11/26/2023 3:59 PM EDT The following approved medication requests have been transmitted electronically. Requested Prescriptions Signed Prescriptions Disp Refills dulaglutide (TRULICITY) 0.75 mg/0.5 mL pen injector 12 Each 0 Sig: Inject 0.75 mg subcutaneously one time a week. Inject dose once per week. Discard Pen After Authorizing Provider: Valerie YEBOAH Rx signed and on nursing desk Valerie Yeboah PA-C * Telephone Encounter - Radha San LPN - 11/26/2023 2:52 PM EDT Talked to patient and states that she would like to decrease to the Trulicity 0.75mg at this time. Please print script for 0.75 will need a 90 day supply. * Telephone Encounter - Valerie Yeboah PA-C - 11/26/2023 2:33 PM EDT Please ask patient if she is willing to call to find pharmacy that has stock and I will sen brianna. Thanks, Isiah Yeboah PA-C * Telephone Encounter - Radha San LPN - 11/26/2023 11:41 AM EDT [facility] sends fax (patient assistance) Trulicity 1.5mg is temporarily unavailable. 0.75, 3, and 4.5mg are currently available. Is patient able to be changed? Will need a printed order to send for a 90 day supply. Will need to fax [phone]. documented in this encounterKindred Healthcare03-12-2024 History of Present illness Narrative* Valerie Yeboah PA-C - 11/03/2023 1:40 PM EDT 68 year old female with c/o follow-up on hypertension HTN: Current meds: Lisinopril 10 mg daily: 1/2 tab = 5mg Patient is compliant with meds Yes Monitors bp at home: Yes. If yes, readings: similar Denies side effects: Yes. Chest pain: No. Dyspnea: No. Edema: No. Palpitations: No. Syncope: No. Headache: No. Dizziness: Yes. Feeling woozy getting up and down, no falls, lightheaded a lot Last 3 Encounter BP Readings: Date: BP: 10/05/2023 112/70 04/02/2023 116/82 10/02/2022 124/68 Last 2 Encounter Wt Readings: Date: Wt: 10/05/2023 105.7 kg (233 lb) 04/02/2023 109 kg (240 lb 6.4 oz) UTI Cleared. 5.8 (10/02/2023) Planned ladies luncheon: 33 ladies HISTORIES FAMILY HISTORY Problem Relation Age of Onset Diabetes Mother Genitourinary () Mother renal failure Cancer Father rectal cancer Hypertension Sister Diabetes Sister Cancer Sister lymphoma, leukemia Diabetes Brother Breast Cancer Paternal Aunt diagnosed in her late 50's still alive and well Thyroid Cancer Niece/Nephew other (? 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, S/P EBRT and HDR brachytherapy Malignant neoplasm of colon, unspecified site 1999 Colon cancer Obesity, unspecified Psoriasis Radiation 2006 for Cervical Cancer PAST SURGICAL HISTORY Procedure Laterality Date ARTHRP KNE CONDYLE&PLATU MEDIAL&LAT COMPARTMENTS 2010 left knee ARTHRP KNE CONDYLE&PLATU MEDIAL&LAT COMPARTMENTS 01/01/2015 Right knee BIOPSY BREAST OPEN INCISIONAL Bx of breast, incisional CHOLECYSTECTOMY 1988 Open cholecystectomy COLECTOMY PARTIAL W/ANASTOMOSIS 2000 Hemicolectomy COLONOSCOPY 10/2018 COLONOSCOPY FLX DX W/COLLJ SPEC WHEN PFRMD Colonoscopy COLONOSCOPY FLX DX W/COLLJ SPEC WHEN PFRMD 09/09/2005 Colonoscopy COLONOSCOPY FLX DX W/COLLJ SPEC WHEN PFRMD 11/15/2008 Colonoscopy COLONOSCOPY FLX DX W/COLLJ SPEC WHEN PFRMD 02/11/12, 03/2015 Repeat in 3 years (03/2018) DILATION & CURETTAGE DX&/THER NONOBSTETRIC 05/29/2011 Dilation & curettage PAST SURGICAL HISTORY OF Rt port placement REMV CATARACT EXTRACAP,INSERT LENS Left 10/2021 REPAIR FIRST ABDOMINAL WALL HERNIA 2000 Hernia repair, incisional TOT ABD HYST W/PARAORTIC & PELVIC LYMPH NODE MARK 06/19/2011 Exploratory laparotomy with extensive lysis of adhesions, total abdominal hysterectomy, bilateral salpingo- oophorectomy, cystoscopy, and omentectomy. Social History Tobacco Use Smoking status: Never Smokeless tobacco: Never Vaping Use Vaping Use: Never used Substance Use Topics Alcohol use: Yes Comment: rarely Drug use: No ACTIVE PROBLEM LIST Hypothyroidism Hypertriglyceridemia Mixed Incontinence Urge and Stress (Male)(female) S/P Hysterectomy With Oophorectomy Hyperlipidemia Diabetes mellitus (HCC) Endometrial Cancer (Hcc) History of Cervical Cancer History of Colon Cancer Diabetic Neuropathy (Hcc) Mixed Incontinence Kidney Stone On Left Side Recurrent Major Depression in Partial Remission (Hcc) Obesity, Class III, BMI >= 40 (morbid obesity) E66.01 Vesico-Vaginal Fistula Psoriasis Radiculopathy, Cervical Region Colon Cancer (Hcc) Ectatic Thoracic Aorta (Hcc) Idiopathic Dilatation of Pulmonary Artery (Hcc) Lesion of Liver Less Than 1 Cm in Diameter With History of Extrahepatic Malignant Neoplasm Generalized Abdominal Pain Abdominal Distension (Gaseous) Pain in Joint of Right Hip Current Outpatient Medications Medication Sig Dispense Refill FLUoxetine (PROZAC) 40 mg capsule Take 1 capsule by mouth once daily. 90 capsule 1 metFORMIN (GLUCOPHAGE) 1,000 mg tablet Take 1 tablet by mouth two times a day with meals. 180 tablet 1 dulaglutide (TRULICITY) 1.5 mg/0.5 mL pen injector Inject 1.5 mg subcutaneously one time a week. Inject once per week. Discard Pen After 12 Each 3 levothyroxine (SYNTHROID) 112 mcg tablet Take 1 tablet by mouth once daily. 90 tablet 3 pravastatin (PRAVACHOL) 40 mg tablet Take 1 tablet by mouth daily at bedtime. 90 tablet 3 lisinopril (ZESTRIL) 10 mg tablet Take 1 tablet by mouth once daily. 90 tablet 3 nystatin-triamcinolone (MYCOLOG) ointment Apply sparingly to perineum twice daily for irritation/infection. (Patient not taking: Reported on 10/05/2023) 30 g 0 vit C,F-Qc-fxkjy-lutein-zeaxan (PRESERVISION AREDS-2) 250-90-40-1 mg Take 1 capsule by mouth twice daily with meals. 60 capsule 11 lactobacillus comb no.10 (PROBIOTIC) 20 billion cell cap Take by mouth. CYANOCOBALAMIN/COBAMAMIDE (B12 SUBLINGUAL) Dissolve under the tongue. Cholecalciferol, Vitamin D3, 25 mcg (1,000 unit) cap Take 1,000 Units by mouth once daily. blood sugar diagnostic (ACCU-CHEK ROBIN) test strip Use as instructed 100 Bottle 3 Lancets (ACCU-CHEK SOFTCLIX LANCETS) lancets Once daily. 250.40 100 Each 5 Blood-Glucose Meter (ACCU-CHEK ROBIN PLUS METER) misc 1 Each once daily. 1 Each 0 multivitamin ORAL tablet Take 1 tablet by mouth once daily. Current Facility-Administered Medications Medication Dose Route Frequency Provider Last Rate Last Admin perflutren lipid microspheres 1.3 mL in NaCl (PF) 0.9% 10 mL injection (DEFINITY) INTRAVENOUS DIRECTED PRN Valerie Yeboah PA-C sodium chloride 0.9 % (flush) 10 mL (BD POSIFLUSH) 10 mL INTRAVENOUS DIRECTED PRN Valerie Yeboah PA-C RSV Vaccine(1 - 1-dose 60+ series) Never done Pap Testing due on 01/30/2023 Colorectal Cancer Screening due on 04/11/2023 Dilated Retinal Exam due on 04/17/2023 Covid-19 Vaccine( season) due on 04/24/2023 Advance Directive Discussion due on 08/24/2023 EXAM: BP 111/71 Pulse 75 Resp 16 Wt 105.7 kg (233 lb) LMP 08/20/2005 SpO2 98% BMI 39.99 kg/m Pleasant well appearing overweight adult woman in no acute distress. Alert and oriented all spheres. Normal affect and cognition. Speech normal. No deficits to learning or comprehension. Skin warm, dry, pink to lips and nailbeds. Normal turgor. Respirations regular and unlabored. HEENT: NCAT. No scleral icterus or conjunctival injection. TM's clear. Nose and oropharynx free from injection or lesion. Oral membranes moist and pink. No cervical lymph nodes. Thyroid non-tender, no masses, or enlargement. Carotids pulses 2+/4+ without bruits. No JVD with HOB at 30 degrees. Chest is normal shape. Lungs are clear to all alberts with good air exchange through out. HRRR without murmur or gallop. No lifts, heaves, or rubs. Extrem: no clubbing or cyanosis. Edema: none. Extremities are warm and pink with prompt capillary refill. ASSESSMENT/PLAN: 1. Albuminuria - ICD9: 791.0, ICD10: R80.9 (primary diagnosis) 2. Ectatic thoracic aorta (HCC) - ICD9: 447.71, ICD10: I77.810 Unable to tolerate lisinopril. Will stop and recheck next visit. Valerie Yeboah PA-C documented [facility] this [facility]03-[facility]24 Miscellaneous Notes* Telephone Encounter - Amparo Scott LPN - 10/23/2023 1:47 PM EST Patient has been identified by name and date of : Yes, Patient phones for refill(s): Requested Prescriptions Pending Prescriptions Disp Refills FLUoxetine (PROZAC) 40 mg capsule 90 capsule 1 Sig: Take 1 capsule by mouth once daily. Date of last office visit in primary care: 10/05/2023 Date of next office visit in primary care: 11/03/2023 Please advise. Thank you. Amparo Scott LPN. documented in this encounterKind[facility]02-22-2024 Miscellaneous Notes* Letter - Coordinator, Mammography - 10/15/2023 8:15 AM EST October 15, 2023 PID: [id number] Aliyah Leach [address] [place] [address] Dear Ms. Leach, We are pleased to inform you that the results of your recent breast imaging exam on 10/14/2023 are normal. Early detection of cancer is very important. We also understand recommendations regarding breast cancer screening are controversial. Please discuss with your primary care provider which strategy is best for you and whether a mammogram is right for you. Your imaging studies and report will be kept on file at [facility] as part of your permanent medical record and are available for your continuing care. Thank you for allowing us to help in meeting your health care needs. Sincerely, Dr. Burns Interpreting Radiologist [facility] (Normal over 40) documented in this encounterKindred Healthcare02-21-2024 History of Present illness Narrative* Monica Cartagena Mammo Tech - 10/14/2023 1:50 PM EST Radiology Service Progress Note PATIENT NAME: Aliyah Leach DATE OF SERVICE: October 14, 2023 TIME: 2:23 PM PATIENT IDENTITY VERIFICATION COMPLETED USING TWO (2) IDENTIFIERS: Name and Date of confirmedby patient verbally. FALL SCREENING: Has the patient had 2 falls in the last year or 1 fall with injury or currently using an Ambulatory Assistive Device (Walker, Cane, Wheelchair, Crutches, etc.)? No PATIENT GENDER DATA: Female. status: : No status: NO. PATIENT RELEVANT IMPLANT DATA REVIEWED: Not Applicable PATIENT PRESENTS WITH AN IMPLANTABLE OR ATTACHED SOCIAL WORKER HEALTH SERVICES: No RADIOLOGY DEPARTMENT: Mammography PERIPHERAL IV DATA: Not applicable SIGNED BY: Benedicto May October 14, 2023 2:23 PM documented in this encounterKindred Healthcare02-16-2024 Miscellaneous Notes* Telephone Encounter - Michael Zamora Ma - 10/09/2023 8:45 AM EST Patient was reminded of orders and is coming in today Michael Zamora Ma * Telephone Encounter - Valerie Yeboah PA-C - 10/09/2023 8:37 AM EST Please remind patient there are orders to check her urine if she could come in. ThanksIsiah PA-C documented in this encounterKindred Healthcare02-12-2024 Instructions* Patient Instructions* Valerie Yeboah PA-C - 10/05/2023 2:25 PM EST SLEEP HYGIENE Steps to Improve Your sleep Maintain a regular sleep-wake cycle 7 days a week. Bedtime should not vary more than 1 hour from day to day. Go to bed ONLY when you are sleepy. Aim for at least 8 hours of sleep which has been identified as the optimal amount for all adults. Maintain a regular schedule for meals, medications, chores and sleep as much as possible. Limit or wean completely off any stimulants, such as caffeine, nicotine, energy drinks, and OTC decongestant medications which can effect sleep efficiency. Caffeine exerts its effect for 12-16 hours,so avoid use within that time period before sleep. Do not use nicotine products withing 4-6 hours of sleeping. Avoid taking naps. If you do nap, try to limit is to less than 1 hour. Don't lay in bed longer than 20-30 minutes without sleeping. Get up and do something sedentary unitl you feel tired like folding clothes, reading, listening to relaxing music or meditation. Minimize excessive light, noise, or extremes of temperature in the sleep environment. Minimize distractions as much as possible such as pets, children, un-silenced phones, light or TV noise in the bedroom. Move the alarm clock away from your bed so that you are not tempted to look at it. Don't eat a large meal within a few hours of bedtime. Don't use alcohol to induce sleep or in late evening hours as it can cause awakenings later in the night Don't exercise vigorously within fours of sleep. Regular exercise earlier in the day will help withoverall sleep improvement. Limit television to an hour a day. Television viewing actually decreases the REM (most restful) portion of your sleep cycle. Avoid screen time in the two hours before sleep. This includes television, tablets, computer screens and cell-phones. The blue light from the devices mimics sunlight and activates wakefulness. Avoid using your bed as a recreational area for reading or television. The bed should be reserved for two things, and one of those is sleep. Almost all sleep-aids are sedatives. While sedatives make cause you to sleep, they actually interfere with stage 4 deep sleep which is the reparative stage for brain stress. Chronic use of sedatives for an unknown reason increases all cause mortality and shorter life span. OTC herbal supplements such as Valerian Root and Kava Kava have shown some benefit in sleep induction without hang over. Melatonin has been sown to help some people and is also not a sedative. The recommended dose for melatonin in adult is 1/2mg one hour prior to bedtime. Melatonin regulates sleep cycle and larger doses may cause activation rather than sleep. Mindfulness practice has been shown to improve deep sleep. There are many internet source and apps to help guidance in this habit. See below for guidance in this practice. Relaxation - Deep Breathing Take a Time-Out This technique relieves tension by inhaling deeply and exhaling slowly. You can use this anywhere, anytime! Try practicing this technique 3-4 times each day and then, whenever you begin to feel tense. Now, get in a comfortable position 1. Close your eyes, inhale slowly and deeply through your nose as you count silently: In, 2, 3, 4. Notice how your stomach expands first, then your rib cage, and finally your upper chest. 2. Now exhale slowly through your mouth as you count silently: Out, 2, 3, 4, 5, 6. Pretend you're breathing out through a straw to lengthen the time it takes you to exhale. 3. Let your shoulders drop slightly as your upper chest, ribcage, and stomach gently deflate. 4. Repeat this exercise four or five times. A few tips: o Practice makes perfect. It will take time for you to practice this while you are not significantly stressed, before you feel like it is working well when you are stressed. o Use these breathing exercises for as long as you need to during stressful periods. You may vary the rhythm, but always exhale for 2 to 4 seconds longer than you inhale. o If you feel light-headed or fingers tingle, you may be breathing too deeply or too fast. Reduce the depth and speed of your breathing, or breathe into a paper bag until the feeling goes away. Guided Imagery - Picture Yourself Relaxed! Another method of relaxation is mental imagery or clearing your mind. How would you like to take a mental vacation? Well, you can if you let your imagination be your guide. 1. Begin by focusing on your breathing. Spend a few minutes breathing slowly and smoothly. 2. As you breathe, slowly count backward from 5, sinking deeper and deeper into a state of relaxation. Say to yourself, I feel deeply relaxed. 3. Next, imagine a pleasant place that you can return to whenever you need relaxation - for example, a warm, quiet beach or a tranquil, fragrant garden. Close your eyes to help you concentrate. 4. Experience the place with all your senses - sight, touch, smell, hearing and taste. Remain there for about 5 minutes or longer, depending on the time you need for pain relief. o Let your imagination run free. Try to name the colors you see. Or trace the shapes of the flowersblooming in the garden. Breathe in the sweet fragrance of the blossoms, listen to the birds chirping, and feel the sun warm your skin. Now, sip a cool beverage before you step through the garden and greet a friend. 5. Slowly let the image you've chosen fade from the center of your attention as you focus again on your breathing. Maintain a relaxed feeling. When you feel ready, count slowly to 5 and open your eyes. Progressive Muscle Relaxation - Identifying and Releasing Tension No matter where you are, you can relax your muscles with a technique called progressive muscle relaxation. This technique helps to relieve the muscle tension that accompanies stress. By learning to tense and relax your muscles one by one, you'll find you can relax your entire body. Here's how: 1. Get comfortable, and close your eyes. Now, staring at the top of your body, tense your forehead and face. Do you notice how these muscles feel tight and strained? Hold this tension for 5 to 10 seconds. 2. Next, relax your forehead and face. Do you notice the relief you feel? Hold and enjoy this relaxation for 20 to 25 seconds. 3. Now work toward your feet. First, tense and relax your jaw muscles. Proceed to the muscle in each shoulder, arm and hand (first the right side, then the left). Move on to your stomach, buttocks, each thigh, each lower leg (one at a time), and finally to each ankle and foot. 4. If you have trouble relaxing some muscles, or if the tension brings on pain, try gently massaging that body part until the muscle relax and feel comfortable. 5. To complete the exercise, open your eyes, stretch, and relax your entire body. Take a few deep breaths as if you are waking up from a deep sleep. Don't engage in any activity until you are alert. As you learn relaxation techniques, you'll become more aware of muscle tension and other physical sensations of stress. Once you know what the stress response feels like, you can make a conscious effort to practice a relaxation technique the moment you start to feel stress symptoms. This can prevent stress from spiraling out of control. Remember that relaxation techniques are skills. And as with any skill, your ability to relax improves with practice. Be patient with yourself - don't let your effort to practice relaxation techniquesbecome yet another stressor. Try to let your jaw relax. Make a conscious effort not to clench or grind. Avoid any excessive chewing. Use soft foods, ground meat, and avoid gum, candy, soft breads, or anything that makes you use you jaw. Trigger point massage over the muscle knots palpable at the angle of your jaw may help. After a fewminutes of steady pressure or circling motion, the muscles will relax, and the knot will go away. You might try taking the palms over your hands, pressing in firmly over the jaw, and slowing sliding your hands down the sides of your face, opening and pulling your jaw downward. Moist heat for 10-20min may also help relax the muscles. You may use over the counter analgesics such as Tylenol, Advil or Aleve. If you clench or grind at night, seeing an tank assembler or oral surgeon might be helpful to make a bite plate to keep you from being able to completely close your mouth. In the meantime, for about $20 you can purchase a moldable Doctor's Straight Ruling Machine Operator over the counter at most [employer] or [place]. Behavioral therapy can also help to retrain the habits of clenching or grinding. documented in this encounterKind[facility]02-12-2024 History of Present illness Narrative* Valerie Yeboah PA-C - 10/05/2023 1:00 PM EST 68 year old female with c/o 6 month follow up Has had falls in last year a few times Notes she was told her shoes were two sizes too big and she got ones that finally fit well. Feels walking in more stable. Ectatic thoracic aorta (hcc) (primary encounter diagnosis) Idiopathic dilatation of pulmonary artery (hcc) Mixed hyperlipidemia Hypertriglyceridemia Cardiovascular interval hx: 10/27/2022 echo: max aortic dimension 3.8cm, otherwise WNL, pulmonary artery dimensions not identied 12/20/2020 echo: max aortic dimension 3.6 cm, otherwise WNL 05/18/2020 CT Chest w/ IV contrast: Several small solid pulmonary nodules. Chronic posterior basilar subpleural thickening/consolidation. Mild ascending thoracic aortic ectasia with diameter 3.6cm. Mildly dilated main pulmonary artery trunk diameter 2.9cm. Focal proximal LAD coronary artery calcification. No change in imaging from 11/08/2014. Current meds: Lisinopril 10 mg daily Pravachol 40 mg daily at bedtime Use of NTG: No Chest pain, arm, jaw pain, neck, or upper back pain suggestive of angina: No. SOB: No Dyspnea with exertion: better from last visit, hip has improved orthopnea: No Cough : No racing or irregular heartbeats: No palpitations: No syncopal sx: No Headache: No Unexplainable fatigue No: fatigue improved from last visit but still tired all the time Leg swelling: Swelling in ankles by the end of the day: minor, has recliner which helps Nausea: No diaphoresis: No Heartburn: No Claudication: No Smoking: No Following Low cholesterol, high fiber diet? No. If on statin: muscle aches? No If on statin: GI sx or diarrhea? No Additional history none. Last 3 Encounter BP Readings: Date: BP: 10/05/2023 112/70 04/02/2023 116/82 10/02/2022 124/68 Last 2 Encounter Wt Readings: Date: Wt: 10/05/2023 105.7 kg (233 lb) 04/02/2023 109 kg (240 lb 6.4 oz) Lab review: Component Latest Ref Rng & Units 09/30/2022 04/01/2023 Cholesterol, Total <200 mg/dL 125 123 Triglyceride <150 mg/dL 243 (H) 174 (H) HDL Cholesterol >39 mg/dL 29 (L) 35 (L) Non HDL Cholesterol <130 mg/dL 96 88 Fasting Time hrs 13 12 VLDL Cholesterol <30 mg/dL 49 (H) 35 (H) TC:HDL Ratio <5.10 4.31 3.51 LDL Cholesterol <100 mg/dL 47 53 LDL:HDL Ratio <2.54 1.62 1.51 Type 2 diabetes mellitus without complication, without long-term current use of insulin (hcc) Diabetic polyneuropathy associated with type 2 diabetes mellitus (hcc) Albuminuria Diabetes Mellitus Type 2: Current medications: Glimepiride 4 mg 2 tablets daily AC Metformin 1000 mg twice daily with meals Dulaglutide 0.75 mg subcu weekly Taking medication as directed consistently? Yes Medication side effects: None Medical Issues / Complications: hypertension, hyperlipidemia, and peripheral neuropathy Checking blood sugars at home? Yes, every morning; Usually 160-180s. ( 135 today, 185 highest ) Watching diet? Well rounded diet, does not restrict herself. Physical Activity: Sedentary Hypoglycemic spells? Yes, confirms persistent issues with hot flashes and sweating; helps with eating a snack. Occurs about 3 times per month. (At [facility]). Any visual disturbance? Yes, floaters Chest pain? No New numbness, tingling or loss of sensation? Increase in numbness in bilateral feet. Any recent foot problems, sores or rashes? No. Minor calcuses on toes. Any recent or sudden weight loss? No (7lbs down, unintentioanly) Change in urination? No. If yes: ongoing continuous incontinence and leaking. Thought possibly UTI last week, daughter got her Azo, preceded by low back pain on right side. Any recent illness? (UTI like symptoms--back pain) Last eye exam: About 6 months ago. (Has another one scheduled soon) Last foot exam: Last year, wants to start going to the [employer]. (TODAY, does not feel like she needs to see Podiatry) HBA1C: Hemoglobin A1C Date Value 10/02/2023 5.8 % 04/01/2023 6.5 % 08/26/2022 5.7 09/19/2021 6.9 % 04/04/2021 6.9 % ) Component Latest Ref Rng & Units 01/20/2019 Creatinine, Ur Random (UCRR) 20 - 300 mg/dL 168.7 Albumin, Urine Random 0.0 - 23.0 mg/L 75.0 (H) Albumin/Creat Ratio 0 - 30 mg/g 44 (H) Last 2 Encounter Wt Readings: Date: Wt: 10/05/2023 105.7 kg (233 lb) 04/02/2023 109 kg (240 lb 6.4 oz) Hypothyroidism, unspecified type Hypothyroidism Current medication: Levothyroxine 112 mcg daily AC Taking as directed on an empty stomach? Yes. Thyroid pain: No. Mass effect: No. Change ins energy level/ fatigue? Yes, over past few years, sleeps from 5a-1p, feels rested but tired at night. Sleep disturbance ?No. Temperature Intolerance: cold No, hot has improved: occasional. In females, menstrual cycle issues? No, If yes: Change in bowel habits? No. If yes: Constipation? No. If yes: Diarrhea? No. If yes: Weight changes?No. Memory issues: Yes, very minimal. Diaphoresis: Yes, occurs 1-2 times per week, mostly at rest. Numbness, tingling Yes in b/l feet. Radiological imaging with contrast dyes within the last 3 months? No. History of radiation exposure to head or neck area? No. Change in hair or skin? No. If yes: Other symptoms: Last 2 Encounter Wt Readings: Date: Wt: 10/05/2023 105.7 kg (233 lb) 04/02/2023 109 kg (240 lb 6.4 oz) 7 LBs down Last thyroid labs: TSH Date Value 04/01/2023 1.320 mIU/L 03/27/2022 0.803 mIU/L 12/05/2020 1.000 uU/mL 03/08/2020 1.650 uU/mL ) Saw chiropractor for back pain (UTI?) Would like to check to make sure pain UTI Obesity, class iii, bmi >= 40 (morbid obesity) e66.01 As above 7lbs loss History of endometrial cancer S/p hysterectomy with oophorectomy Confirms still no recent vaginal bleeding. 06/21/[address]21 [address]poscopy [facility] Dr. Hagen History of colon cancer No recent changes in bowel movements. No rectal bleeding, black or tarry stools. 11/23/2018 colonoscopy, final dx: descending colon hyperplastic polyp Mixed incontinence urge and stress (male)(female) No new changes, still incontinent. + urge with cough Continuous leakage, doesn't ever feel bladder contraction. Recurrent major depression in partial remission (hcc) Current meds: fluoxetine 40 mg capsule Feeling better now that khan has lifted a little. Change in medication No. Currently in counseling? No. Any Medication side effects? No. Sleep disturbance? doesn't sleep well at night: as above, turned to daytime sleeping Loss of interest in usual pleasurable activities?No. Sense of guilt, shame, low self esteem?No. Energy: feels at baseline, tires easily, sees grandkids and kids, goes out with friends. Trouble with concentration? No. Changes in appetite? No. Changes in weight? No Psychomotor retardation: No Suicidal thoughts: No Racing thoughts? No. Interpersonal/ family conflicts? No. Irritability? No. Vitamin d deficiency Continuing to take medication daily. R hip feels weak following fall. Current medications: Vitamin D3 1000 units daily Component Latest Ref Rng & Units 10/25/2012 12/05/2020 Vitamin D 25 Hydroxy 31.0 - 80.0 ng/mL 29.5 (L) 63.6 Intrinsic eczema Stable, no flare ups more than dry skin on egs Current medications: Nystatin-triamcinolone ointment sparingly Sleep inconsistency (melatonin not helping) Would like something for sleep, she cannot fall asleep Dizzy at night time (takes medication at night) - worse lately Not vertiginous or presyncopal, no falls or loss of balance. Thinks may be from taking all her meds at night HISTORIES FAMILY HISTORY Problem Relation Age of Onset Diabetes Mother Genitourinary () Mother renal failure Cancer Father rectal cancer Hypertension Sister Diabetes Sister Cancer Sister lymphoma, leukemia Diabetes Brother Breast Cancer Paternal Aunt diagnosed in her late 50's still alive and well Thyroid Cancer Niece/Nephew other (? 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, S/P EBRT and HDR brachytherapy Malignant neoplasm of colon, unspecified site 1999 Colon cancer Obesity, unspecified Psoriasis Radiation 2006 for Cervical Cancer PAST SURGICAL HISTORY Procedure Laterality Date ARTHRP KNE CONDYLE&PLATU MEDIAL&LAT COMPARTMENTS 2010 left knee ARTHRP KNE CONDYLE&PLATU MEDIAL&LAT COMPARTMENTS 01/01/2015 Right knee BIOPSY BREAST OPEN INCISIONAL Bx of breast, incisional CHOLECYSTECTOMY 1987 Open cholecystectomy COLECTOMY PARTIAL W/ANASTOMOSIS 1999 Hemicolectomy COLONOSCOPY 10/2018 COLONOSCOPY FLX DX W/COLLJ SPEC WHEN PFRMD Colonoscopy COLONOSCOPY FLX DX W/COLLJ SPEC WHEN PFRMD 09/09/2005 Colonoscopy COLONOSCOPY FLX DX W/COLLJ SPEC WHEN PFRMD 11/15/2008 Colonoscopy COLONOSCOPY FLX DX W/COLLJ SPEC WHEN PFRMD 02/11/12, 03/2015 Repeat in 3 years (03/2018) DILATION & CURETTAGE DX&/THER NONOBSTETRIC 05/29/2011 Dilation & curettage PAST SURGICAL HISTORY OF Rt port placement REMV CATARACT EXTRACAP,INSERT LENS Left 10/2021 REPAIR FIRST ABDOMINAL WALL HERNIA 2000 Hernia repair, incisional TOT ABD HYST W/PARAORTIC & PELVIC LYMPH NODE MARK 06/19/2011 Exploratory laparotomy with extensive lysis of adhesions, total abdominal hysterectomy, bilateral salpingo- oophorectomy, cystoscopy, and omentectomy. Social History Tobacco Use Smoking status: Never Smokeless tobacco: Never Vaping Use Vaping Use: Never used Substance Use Topics Alcohol use: Yes Comment: rarely Drug use: No ACTIVE PROBLEM LIST Hypothyroidism Hypertriglyceridemia Mixed Incontinence Urge and Stress (Male)(female) S/P Hysterectomy With Oophorectomy Hyperlipidemia Diabetes mellitus (HCC) Endometrial Cancer (Hcc) History of Cervical Cancer History of Colon Cancer Diabetic Neuropathy (Hcc) Mixed Incontinence Kidney Stone On Left Side Recurrent Major Depression in Partial Remission (Hcc) Obesity, Class III, BMI >= 40 (morbid obesity) E66.01 Vesico-Vaginal Fistula Psoriasis Radiculopathy, Cervical Region Colon Cancer (Hcc) Ectatic Thoracic Aorta (Hcc) Idiopathic Dilatation of Pulmonary Artery (Hcc) Lesion of Liver Less Than 1 Cm in Diameter With History of Extrahepatic Malignant Neoplasm Generalized Abdominal Pain Abdominal Distension (Gaseous) Pain in Joint of Right Hip Current Outpatient Medications Medication Sig Dispense Refill metFORMIN (GLUCOPHAGE) 1,000 mg tablet Take 1 tablet by mouth two times a day with meals. 180 tablet 1 dulaglutide (TRULICITY) 1.5 mg/0.5 mL pen injector Inject 1.5 mg subcutaneously one time a week. Inject once per week. Discard Pen After 12 Each 3 FLUoxetine (PROZAC) 40 mg capsule Take 1 capsule by mouth once daily. 90 capsule 1 levothyroxine (SYNTHROID) 112 mcg tablet Take 1 tablet by mouth once daily. 90 tablet 3 pravastatin (PRAVACHOL) 40 mg tablet Take 1 tablet by mouth daily at bedtime. 90 tablet 3 lisinopril (ZESTRIL) 10 mg tablet Take 1 tablet by mouth once daily. 90 tablet 3 nystatin-triamcinolone (MYCOLOG) ointment Apply sparingly to perineum twice daily for irritation/infection. 30 g 0 vit C,R-So-waxok-lutein-zeaxan (PRESERVISION AREDS-2) 250-90-40-1 mg Take 1 capsule by mouth twice daily with meals. 60 capsule 11 lactobacillus comb no.10 (PROBIOTIC) 20 billion cell cap Take by mouth. CYANOCOBALAMIN/COBAMAMIDE (B12 SUBLINGUAL) Dissolve under the tongue. Cholecalciferol, Vitamin D3, 25 mcg (1,000 unit) cap Take 1,000 Units by mouth once daily. blood sugar diagnostic (ACCU-CHEK ROBIN) test strip Use as instructed 100 Bottle 3 Lancets (ACCU-CHEK SOFTCLIX LANCETS) lancets Once daily. 250.40 100 Each 5 Blood-Glucose Meter (ACCU-CHEK ROBIN PLUS METER) misc 1 Each once daily. 1 Each 0 multivitamin ORAL tablet Take 1 tablet by mouth once daily. Current Facility-Administered Medications Medication Dose Route Frequency Provider Last Rate Last Admin perflutren lipid microspheres 1.3 mL in NaCl (PF) 0.9% 10 mL injection (DEFINITY) INTRAVENOUS DIRECTED PRN Valerie Yeboah PA-C sodium chloride 0.9 % (flush) 10 mL (BD POSIFLUSH) 10 mL INTRAVENOUS DIRECTED PRN Valerie Yeboah PA-C RSV Vaccine(1 - 1-dose 60+ series) Never done Pap Testing due on 01/30/2023 Colorectal Cancer Screening due on 04/11/2023 Dilated Retinal Exam due on 04/17/2023 Influenza Vaccine(1) due on 04/24/2023 Covid-19 Vaccine( season) due on 04/24/2023 Advance Directive Discussion due on 08/24/2023 HbA1C due on 10/02/2023 Mammogram Screening due on 10/02/2023 EXAM: BP 112/70 Pulse 87 Resp 16 Wt 105.7 kg (233 lb) LMP 08/20/2005 SpO2 98% BMI 39.99 kg/m Pleasant overweight adult woman in no acute distress. Alert and oriented all spheres. Normal affectand cognition. Speech normal. No deficits to learning or comprehension. Skin warm, dry, pink to lips and nailbeds. Normal turgor. Respirations regular and unlabored. HEENT: NCAT. No scleral icterus or conjunctival injection. TM's clear. Nose and oropharynx free from injection or lesion. Oral membranes moist and pink. No cervical lymph nodes. Thyroid non-tender, no masses, or enlargement. Carotids pulses 2+/4+ without bruits. No JVD with HOB at 30 degrees. Chest is normal shape. Lungs are clear to all alberts with good air exchange through out. HRRR without murmur or gallop. No lifts, heaves, or rubs. Extrem: no clubbing or cyanosis. Edema: no pitting. Extremities are warm and pink with prompt capillary refill. Low back with mild tenderness across lower lumbar muscles, no CVAT.. ASSESSMENT/PLAN: 1. Encounter for immunization - ICD9: V03.89, ICD10: Z23 (primary diagnosis) - INFLUENZA VACCINE, PRSV FREE, AGE 65+ YR, HIGH DOSE, QUADRIVALENT (FLUZONE HIGH-DOSE) 2. Encounter for screening mammogram for breast cancer - ICD9: V76.12, ICD10: Z12.31 - Encouraged monthly BSE - Follow up for annual exam in one year. - ISAMAR SCREENING 3. Ectatic thoracic aorta (HCC) - ICD9: 447.71, ICD10: I77.810 Very light change, recheck in 1 year 4. Idiopathic dilatation of pulmonary artery (HCC) - ICD9: 417.8, ICD10: I28.8 As above follow in 1 year 5. Screening for colon cancer - ICD9: V76.51, ICD10: Z12.11 - COLOGUARD 6. Type 2 diabetes mellitus without complication, without long-term current use of insulin (HCC) - ICD9: 250.00, ICD10: E11.9 - Controlled - Continue current medications - ALBUMIN/CREAT RATIO RND UR - COMP METABOLIC PANEL - HGB A1C - CBC + DIFF - LIPID PANEL BASIC 7. Neurogenic bladder - ICD9: 596.54, ICD10: N31.9 Chronic from chemotherapy, has been through extensive work up. - URINALYSIS, WITH MICROSCOPIC - URINE CULTURE 8. Acute midline low back pain without sciatica - ICD9: 724.2, ICD10: M54.50 Doubt UTI - URINALYSIS, WITH MICROSCOPIC - URINE CULTURE 9. Abnormal circadian rhythm - ICD9: 327.30, ICD10: G47.20 Not personally upset with her schedule, but finds it is isolating from family and friends. Discussed needs to force herself to stay awake, not to nap more than 40 minutes. Could use modenafil or caffeine Discouraged any halfway use of sedatives. F/u in 6 months, labs ahead Some of this note may have been copied and pasted for the purpose of history context and comparisonand has been adjusted for changes in prior data. Valerie Yeboah PA-C documented in this encounterKindred Healthcare09-19-2023 Miscellaneous Notes* Telephone Encounter - Amparo Scott LPN - 05/12/2023 2:43 PM EDT Fax received from [facility] The patient assistance program has been approved for the pharmacy to ship a 3-4 month supply out lanette time, but the RX currently does not have enough to fill this request. documented in this encounterKindred Healthcare09-18-2023 Miscellaneous Notes* Telephone Encounter - Radha San LPN - 05/11/2023 1:33 PM EDT Patient has been identified by name and date of : Yes Requested Prescriptions Pending Prescriptions Disp Refills pravastatin (PRAVACHOL) 40 mg tablet 90 tablet 3 Sig: Take 1 tablet by mouth daily at bedtime. lisinopril (ZESTRIL) 10 mg tablet 90 tablet 3 Sig: Take 1 tablet by mouth once daily. metFORMIN (GLUCOPHAGE) 1,000 mg tablet 180 tablet 1 Sig: Take 1 tablet by mouth twice daily with meals. RX INSTRUCTIONS: Patient aware RX will be sent to pharmacy. No need to notify patient. Mychart request. Radha San LPN documented in this encounterKindred Healthcare08-30-2023 History of Present illness Narrative* Reg Jara RT([place]acha) - 04/22/2023 2:00 PM EDT Radiology Service Progress Note PATIENT NAME: Aliyah Leach DATE OF SERVICE: April 22, 2023 TIME: 2:10 PM PATIENT IDENTITY VERIFICATION COMPLETED USING TWO (2) IDENTIFIERS: Name and Date of confirmedby patient verbally. FALL SCREENING: Has the patient had 2 falls in the last year or 1 fall with injury or currently using an Ambulatory Assistive Device (Walker, Cane, Wheelchair, Crutches, etc.)? No PATIENT GENDER DATA: Female. status: : No status: NO. PATIENT RELEVANT IMPLANT DATA REVIEWED: Not Applicable RADIOLOGY DEPARTMENT: Bone Density PERIPHERAL IV DATA: Not applicable SIGNED BY: RT Stu(R) April 22, 2023 2:10 PM documented in this encounterKindred Healthcare08-23-2023 Miscellaneous Notes* Telephone Encounter - Erica Velasquez - 04/15/2023 1:36 PM EDT Patient has been identified by name and date of : Yes Requested Prescriptions Pending Prescriptions Disp Refills FLUoxetine (PROZAC) 40 mg capsule 90 capsule 1 Sig: Take 1 capsule by mouth once daily. DANGELO:04-02-23 NOV:10-05-23 RX INSTRUCTIONS: Patient aware RX will be sent to pharmacy. No need to notify patient. Erica Velasquez documented in this encounterKindred Healthcare08-10-2023 History of Present illness Narrative* Valerie Yeboah PA-C - 04/02/2023 2:00 PM EDT 68 year old female with c/o here for follow up Broken Ribs Fell in bathroom on 07/29/22 and broke three ribs Right side, broke ribs 6, 7, 9 Went to the ER at [facility] Spent 3 days, then went to [place] for 3 additions days then discharged home Currently no pain R hip that she fell on is weak, uses cane for mobility Had pressure sore on bilateral buttocks which healed prior to getting into wound center so she never went. Ectatic thoracic aorta (hcc) (primary encounter diagnosis) Idiopathic dilatation of pulmonary artery (hcc) Mixed hyperlipidemia Hypertriglyceridemia Cardiovascular interval hx: 12/20/20 echo: max aortic dimension 3.6 cm 05/18/2020 CT Chest w/ IV contrast: Several small solid pulmonary nodules. Chronic posterior basilarsubpleural thickening/consolidation. Mild ascending thoracic aortic ectasia with diameter 3.6cm. Mildly dilated main pulmonary artery trunk diameter 2.9cm. Focal proximal LAD coronary artery calcification. No change in imaging from 11/08/2014. Current meds: Lisinopril 10 mg daily Pravachol 40 mg daily at bedtime Use of NTG: No Chest pain, arm, jaw pain, neck, or upper back pain suggestive of angina: No. SOB: No Dyspnea with exertion: better from last visit, hip has improved orthopnea: No Cough : No racing or irregular heartbeats: No palpitations: No syncopal sx: No Headache: No Unexplainable fatigue No: fatigue improved from last visit. Leg swelling: Swelling in ankles by the end of the day, no new changes. Nausea: No diaphoresis: No Heartburn: No Claudication: No Smoking: No Following Low cholesterol, high fiber diet? No If on statin: muscle aches? No If on statin: GI sx or diarrhea? No Additional history none. Lab review: Component Latest Ref Rng & Units 09/30/2022 04/01/2023 Cholesterol, Total <200 mg/dL 125 123 Triglyceride <150 mg/dL 243 (H) 174 (H) HDL Cholesterol >39 mg/dL 29 (L) 35 (L) Non HDL Cholesterol <130 mg/dL 96 88 Fasting Time hrs 13 12 VLDL Cholesterol <30 mg/dL 49 (H) 35 (H) TC:HDL Ratio <5.10 4.31 3.51 LDL Cholesterol <100 mg/dL 47 53 LDL:HDL Ratio <2.54 1.62 1.51 Type 2 diabetes mellitus without complication, without long-term current use of insulin (hcc) Diabetic polyneuropathy associated with type 2 diabetes mellitus (hcc) Albuminuria Diabetes Mellitus Type 2: Current medications: Glimepiride 4 mg 2 tablets daily AC Metformin 1000 mg twice daily with meals Dulaglutide 0.75 mg subcu weekly Taking medication as directed consistently? Yes Medication side effects: None Medical Issues / Complications: hypertension, hyperlipidemia, and peripheral neuropathy Checking blood sugars at home? Yes, every morning; Usually 160-180s. Watching diet? Well rounded diet, does not restrict herself. Physical Activity: Sedentary Hypoglycemic spells? Yes, leads to hot flashes and sweating; helps with eating a snack. Occurs about 3 times per month. Any visual disturbance? Yes Chest pain? Yes New numbness, tingling or loss of sensation? Increase in numbness in bilateral feet. Any recent foot problems, sores or rashes? No Any recent or sudden weight loss? No Change in urination? No. If yes: Any recent illness? Yes, just getting over an upper respiratory infection. Last eye exam: About 6 months ago. Last foot exam: Last year, wants to start going to the [employer]. HBA1C: Hemoglobin A1C Date Value 04/01/2023 6.5 % 09/30/2022 5.9 % 08/26/2022 5.7 09/19/2021 6.9 % 04/04/2021 6.9 % ) CMP: Glucose 138 04/01/2023 BUN 15 04/01/2023 Creatinine 0.69 04/01/2023 Sodium 139 04/01/2023 Potassium 4.6 04/01/2023 Chloride 102 04/01/2023 CO2 24 04/01/2023 Protein, Total 7.0 04/01/2023 Albumin 4.3 04/01/2023 Calcium 9.5 04/01/2023 Alkaline Phosphatase 54 04/01/2023 Bilirubin, Total 0.3 04/01/2023 AST 22 04/01/2023 ALT 24 04/01/2023 Component Latest Ref Rng & Units 01/20/2019 Creatinine, Ur Random (UCRR) 20 - 300 mg/dL 168.7 Albumin, Urine Random 0.0 - 23.0 mg/L 75.0 (H) Albumin/Creat Ratio 0 - 30 mg/g 44 (H) Last 2 Encounter Wt Readings: Date: Wt: 04/02/2023 109 kg (240 lb 6.4 oz) 10/02/2022 113.4 kg (250 lb) Hypothyroidism, unspecified type Hypothyroidism Current medication: Levothyroxine 112 mcg daily AC Taking as directed on an empty stomach? Yes. Thyroid pain: No. Mass effect: No. Change ins energy level/ fatigue? Yes, since fall in July. Sleep disturbance ?No. Temperature Intolerance: cold No, hot Yes, always hot even when others are cold. In females, menstrual cycle issues? No, If yes: Change in bowel habits? No. If yes: Constipation? No. If yes: Diarrhea? No. If yes: Weight changes?No. Memory issues: Yes, very minimal. Diaphoresis: Yes, occurs 1-2 times per weak. Numbness, tingling Yes in b/l feet. Radiological imaging with contrast dyes within the last 3 months? No. History of radiation exposure to head or neck area? No. Change in hair or skin? No. If yes: Other symptoms: Last 2 Encounter Wt Readings: Date: Wt: 04/02/2023 109 kg (240 lb 6.4 oz) 10/02/2022 113.4 kg (250 lb) Last thyroid labs: TSH Date Value 04/01/2023 1.320 mIU/L 03/27/2022 0.803 mIU/L 12/05/2020 1.000 uU/mL 03/08/2020 1.650 uU/mL ) Obesity, class iii, bmi >= 40 (morbid obesity) e66.01 No recent changes in weight History of endometrial cancer S/p hysterectomy with oophorectomy No recent vaginal bleeding. 06/21/[address] [facility] Dr. Hagen History of colon cancer No recent changes in bowel movements. No rectal bleeding, black or tarry stools. 11/23/2018 colonoscopy, final dx: descending colon hyperplastic polyp Mixed incontinence urge and stress (male)(female) No new changes, still incontinent. Recurrent major depression in partial remission (hcc) Current meds: Prozac 40 mg capsule Change in medication No. Currently in counseling? No. Any Medication side effects? No. Sleep disturbance? doesn't sleep well at night. Loss of interest in usual pleasurable activities?No. Sense of guilt, shame, low self esteem?No. Energy: back to normal since accident in July Trouble with concentration? No. Changes in appetite? No. Changes in weight? No Psychomotor retardation: No Suicidal thoughts: No Racing thoughts? No. Interpersonal/ family conflicts? No. Irritability? No. Vitamin d deficiency Continuing to take medication daily. R hip feels weak following fall. Current medications: Vitamin D3 1000 units daily Component Latest Ref Rng & Units 10/25/2012 12/05/2020 Vitamin D 25 Hydroxy 31.0 - 80.0 ng/mL 29.5 (L) 63.6 Intrinsic eczema Stable, no flare ups Current medications: Nystatin-triamcinolone ointment sparingly Outstanding bone density. HISTORIES FAMILY HISTORY Problem Relation Age of Onset Diabetes Mother Genitourinary () Mother renal failure Cancer Father rectal cancer Hypertension Sister Diabetes Sister Cancer Sister lymphoma, leukemia Diabetes Brother Breast Cancer Paternal Aunt diagnosed in her late 50's still alive and well Thyroid Cancer Niece/Nephew other (? 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, S/P EBRT and HDR brachytherapy Malignant neoplasm of colon, unspecified site 1999 Colon cancer Obesity, unspecified Psoriasis Radiation 2006 for Cervical Cancer PAST SURGICAL HISTORY Procedure Laterality Date ARTHRP KNE CONDYLE&PLATU MEDIAL&LAT COMPARTMENTS 2010 left knee ARTHRP KNE CONDYLE&PLATU MEDIAL&LAT COMPARTMENTS 01/01/2015 Right knee BIOPSY BREAST OPEN INCISIONAL Bx of breast, incisional CHOLECYSTECTOMY 1987 Open cholecystectomy COLECTOMY PARTIAL W/ANASTOMOSIS 1999 Hemicolectomy COLONOSCOPY 10/2018 COLONOSCOPY FLX DX W/COLLJ SPEC WHEN PFRMD Colonoscopy COLONOSCOPY FLX DX W/COLLJ SPEC WHEN PFRMD 09/09/2005 Colonoscopy COLONOSCOPY FLX DX W/COLLJ SPEC WHEN PFRMD 11/15/2008 Colonoscopy COLONOSCOPY FLX DX W/COLLJ SPEC WHEN PFRMD 02/11/12, 03/2015 Repeat in 3 years (03/2018) DILATION & CURETTAGE DX&/THER NONOBSTETRIC 05/29/2011 Dilation & curettage PAST SURGICAL HISTORY OF Rt port placement REMV CATARACT EXTRACAP,INSERT LENS Left 10/2021 REPAIR FIRST ABDOMINAL WALL HERNIA 2000 Hernia repair, incisional TOT ABD HYST W/PARAORTIC & PELVIC LYMPH NODE MARK 06/19/2011 Exploratory laparotomy with extensive lysis of adhesions, total abdominal hysterectomy, bilateral salpingo- oophorectomy, cystoscopy, and omentectomy. Social History Tobacco Use Smoking status: Never Smokeless tobacco: Never Vaping Use Vaping Use: Never used Substance Use Topics Alcohol use: Yes Comment: rarely Drug use: No ACTIVE PROBLEM LIST Hypothyroidism Hypertriglyceridemia Mixed Incontinence Urge and Stress (Male)(female) S/P Hysterectomy With Oophorectomy Hyperlipidemia Diabetes mellitus (HCC) Endometrial Cancer (Hcc) History of Cervical Cancer History of Colon Cancer Diabetic Neuropathy (Hcc) Mixed Incontinence Kidney Stone On Left Side Recurrent Major Depression in Partial Remission (Hcc) Obesity, Class III, BMI >= 40 (morbid obesity) E66.01 Vesico-Vaginal Fistula Psoriasis Radiculopathy, Cervical Region Colon Cancer (Hcc) Ectatic Thoracic Aorta (Hcc) Idiopathic Dilatation of Pulmonary Artery (Hcc) Lesion of Liver Less Than 1 Cm in Diameter With History of Extrahepatic Malignant Neoplasm Generalized Abdominal Pain Abdominal Distension (Gaseous) Personal History of Other Malignant Neoplasm of Large Intestine Pain in Joint of Right Hip Current Outpatient Medications Medication Sig Dispense Refill levothyroxine (SYNTHROID) 112 mcg tablet Take 1 tablet by mouth once daily. 90 tablet 3 pravastatin (PRAVACHOL) 40 mg tablet Take 1 tablet by mouth daily at bedtime. 90 tablet 3 lisinopril (ZESTRIL) 10 mg tablet Take 1 tablet by mouth once daily. 90 tablet 3 metFORMIN (GLUCOPHAGE) 1,000 mg tablet Take 1 tablet by mouth twice daily with meals. 180 tablet 1 FLUoxetine (PROZAC) 40 mg capsule Take 1 capsule by mouth once daily. 90 capsule 1 dulaglutide (TRULICITY) 1.5 mg/0.5 mL pen injector Inject 1.5 mg subcutaneously one time a week. Inject once per week. Discard Pen After 12 Each 3 nystatin-triamcinolone (MYCOLOG) ointment Apply sparingly to perineum twice daily for irritation/infection. 30 g 0 vit C,D-Vm-vzmas-lutein-zeaxan (PRESERVISION AREDS-2) 250-90-40-1 mg Take 1 capsule by mouth twice daily with meals. 60 capsule 11 lactobacillus comb no.10 (PROBIOTIC) 20 billion cell cap Take by mouth. CYANOCOBALAMIN/COBAMAMIDE (B12 SUBLINGUAL) Dissolve under the tongue. Cholecalciferol, Vitamin D3, 25 mcg (1,000 unit) cap Take 1,000 Units by mouth once daily. blood sugar diagnostic (ACCU-CHEK ROBIN) test strip Use as instructed 100 Bottle 3 Lancets (ACCU-CHEK SOFTCLIX LANCETS) lancets Once daily. 250.40 100 Each 5 Blood-Glucose Meter (ACCU-CHEK ROBIN PLUS METER) misc 1 Each once daily. 1 Each 0 multivitamin ORAL tablet Take 1 tablet by mouth once daily. Current Facility-Administered Medications Medication Dose Route Frequency Provider Last Rate Last Admin perflutren lipid microspheres 1.3 mL in NaCl (PF) 0.9% 10 mL injection (DEFINITY) INTRAVENOUS DIRECTED PRN Valerie Yeboah PA-C sodium chloride 0.9 % (flush) 10 mL (BD POSIFLUSH) 10 mL INTRAVENOUS DIRECTED PRN Valerie Yeboah PA-C COVID-19 VACCINE(4 - Pfizer series) due on 05/26/2022 DIABETIC FOOT EXAM due on 09/23/2022 PAP TESTING due on 01/30/2023 COLORECTAL CANCER SCREENING due on 04/11/2023 DILATED RETINAL EXAM due on 04/17/2023 EXAM: BP 116/82 Pulse 87 Resp 16 Wt 109 kg (240 lb 6.4 oz) LMP 08/20/2005 SpO2 97% BMI 41.26 kg/m Pleasant obese woman in no acute distress. Alert and oriented all spheres. Normal affect and cognition. Speech normal. No deficits to learning or comprehension. Skin warm, dry, pink to lips and nailbeds. Normal turgor. Respirations regular and unlabored. HEENT: NCAT. No scleral icterus or conjunctival injection. TM's clear. Nose and oropharynx free from injection or lesion. Oral membranes moist and pink. No cervical lymph nodes. Thyroid non-tender, no masses, or enlargement. Carotids pulses 2+/4+ without bruits. No JVD with HOB at 30 degrees. Chest is normal shape. Lungs are clear to all alberts with good air exchange through out. HRRR without murmur or gallop. No lifts, heaves, or rubs. Extrem: no clubbing or cyanosis. Edema: none. Extremities are warm and pink with prompt capillary refill. Feet:Shoes and socks removed, Are you having foot pain no, No deformities, ulcers, calluses, normaldistal pulses, and sensitive to 10 gm monofilament ASSESSMENT/PLAN: 1. Ectatic thoracic aorta (HCC) - ICD9: 447.71, ICD10: I77.810 (primary diagnosis) Borderline: recheck 2 years 2. Idiopathic dilatation of pulmonary artery (HCC) - ICD9: 417.8, ICD10: I28.8 As above 3. Mixed hyperlipidemia - ICD9: 272.2, ICD10: E78.2 - Controlled though trigs are mildly elevated: cut back on carbs if possible - Continue current medications - Counseled on healthy diet and regular exercise - COMP METABOLIC PANEL - LIPID PANEL BASIC 4. Hypertriglyceridemia - ICD9: 272.1, ICD10: E78.1 As above - COMP METABOLIC PANEL - LIPID PANEL BASIC 5. Type 2 diabetes mellitus without complication, without long-term current use of insulin (HCC) - ICD9: 250.00, ICD10: E11.9 - Worsening control - Continue current medications - Counseled on healthy diet and regular exercise - Discussed need for and benefit of weight loss. BMI 41.26 kg/(m^2) - HGB A1C - COMP METABOLIC PANEL - CBC + DIFF - LIPID PANEL BASIC 6. Diabetic polyneuropathy associated with type 2 diabetes mellitus (HCC) - ICD9: 250.60, 357.2, ICD10: E11.42 - Controlled As above - HGB A1C 7. Albuminuria - ICD9: 791.0, ICD10: R80.9 Overdue for recheck - HGB A1C 8. Hypothyroidism, unspecified type - ICD9: 244.9, ICD10: E03.9 stable Stable - Behavioral intervention and - Pharmacological intervention- - TSH BLD 9. Obesity, Class III, BMI >= 40 (morbid obesity) E66.01 - ICD9: 278.01, ICD10: E66.01 Weight decreasing - Behavioral intervention Discussed increasing dulaglutide: she feels she wants to continue as is 10. S/P hysterectomy with oophorectomy - ICD9: V88.01, ICD10: Z90.710, Z90.721 11. Endometrial cancer (HCC) - ICD9: 182.0, ICD10: C54.1 resolved 12. History of cervical cancer - ICD9: V10.41, ICD10: Z85.41 resolved 13. History of colon cancer - ICD9: V10.05, ICD10: Z85.038 In remission 14. Mixed incontinence - ICD9: 788.33, ICD10: N39.46 Dr. Howell retired. Discussed bladder stimulator Currently will think about it, discussed options for consult 15. Recurrent major depression in partial remission (HCC) - ICD9: 296.35, ICD10: F33.41 Stable, doing well 16. Vitamin D deficiency - ICD9: 268.9, ICD10: E55.9 Recheck next vis 17. Intrinsic eczema - ICD9: 691.8, ICD10: L20.84 Continue current care. F/u 6 months Valerie Yeboah PA-C Some of this note may have been copied and pasted for the purpose of history context and comparison. documented in this encounterKindred Healthcare07-03-2023 Miscellaneous Notes* Telephone Encounter - Alexandro Wilkins LPN - 02/23/2023 6:42 PM EDT Patient phones requesting refills as follows: Requested Prescriptions Pending Prescriptions Disp Refills levothyroxine (SYNTHROID) 112 mcg tablet 90 tablet 3 Sig: Take 1 tablet by mouth once daily. DANGELO 10/02/22 04/02/23 Please review and advise. Alexandro Wilkins LPN documented in this encounterKindred Healthcare06-23-2023 Miscellaneous Notes* Telephone Encounter - Alexandro Wilkins LPN - 02/13/2023 4:22 PM EDT Patient phones requesting refills as follows: Requested Prescriptions Pending Prescriptions Disp Refills lisinopril (ZESTRIL) 10 mg tablet 90 tablet 3 Sig: Take 1 tablet by mouth once daily. metFORMIN (GLUCOPHAGE) 1,000 mg tablet 180 tablet 1 Sig: Take 1 tablet by mouth twice daily with meals. DANGELO 10/02/22 04/02/23 Please review and advise. Alexandro Wilkins LPN documented in this encounterKindred Healthcare06-23-2023 Miscellaneous Notes* Telephone Encounter - Alexandro Wilkins LPN - 02/13/2023 4:21 PM EDT Patient phones requesting refills as follows: Requested Prescriptions Pending Prescriptions Disp Refills pravastatin (PRAVACHOL) 40 mg tablet 90 tablet 3 Sig: Take 1 tablet by mouth daily at bedtime. DANGELO 10/02/22 04/02/23 Please review and advise. Alexandro Wilkins LPN documented in this encounterKindred Healthcare03-22-2023 Miscellaneous Notes* Telephone Encounter - Amparo Scott LPN - 11/12/2022 8:30 AM EDT Patient has been identified by name and date of : Yes Patient phones for refill(s): Requested Prescriptions Pending Prescriptions Disp Refills metFORMIN (GLUCOPHAGE) 1,000 mg tablet 180 tablet 1 Sig: Take 1 tablet by mouth twice daily with meals. Refused Prescriptions Disp Refills lisinopril (ZESTRIL) 10 mg tablet 90 tablet 3 Sig: Take 1 tablet by mouth once daily. Date of last office visit in primary care: 10/02/2022 Next appointment scheduled 04/02/2023 Please advise. Thank you. Amparo Scott LPN documented in this encounterKindred Healthcare03-16-2023 History of Present illness Narrative* Silviano Rasmussen, PT - 11/06/2022 3:52 PM EDT Episode Visit Count: 3 Therapist That Will Accept/Oversee The Plan Of Care: Silviano Rasmussen Start of Care Date: 10/16/22 Onset Date: 07/29/23 Plan of Care Certification Date: 10/16/22 Next Certification Due Date: 11/20/22 Patient Identified by Name and Date of : Yes REHABILITATION AND SPORTS THERAPY PHYSICAL THERAPY TREATMENT NOTE ASSESSMENT: Aliyah Leach tolerated the session with no issues. She demonstrated improvements in overall pain levels. The patient will continue to benefit from ongoing skilled physical therapy to progress toward set goals and for reassessment by supervising therapist. PLAN FOR NEXT VISIT: Continue with core strengthening and gluteal strengthening SUBJECTIVE: Patient Reason for Visit: Pt is feeling better. Walking without SPC and turning in bed is less painful. Pain: Pain Pain Level: 0 Pain Location: Hip - Right OBJECTIVE MEASURES WITH LEVEL OF FUNCTION: No pain with any therapeutic exercises TREATMENT: Therapeutic Exercise: 1: Hooklying bridge 2 x 20 reps 2: Hooklying TA bracing with alt october 2 x 12 each leg 3: Sidelying clam GTB 2 x 12 reps RLE and then 2 x 12 LLE 4: Seated TA bracing with 7# MB press x 10 reps 5: Seated TA bracing 11# MB press 2 x 10 6: STS 2 x 10 reps 7: Seated TA bracing with alt arm raises x 10 each Skilled Intervention: Patient was educated in proper exercise technique and purpose for exercises. Provided written instruction for home exercise program to facilitate proper performance and compliance. Correct performance of therapeutic exercises was facilitated with verbal and visual cuing. Billing Therapeutic Exercise Treatment Minutes: 38 Total Treatment Time Minutes (timed/untimed): 38 Silviano Rasmussen PT documented in this encounterKindred Healthcare03-13-2023 History of Present illness Narrative* Viridiana Trujillo RN - 11/03/2022 6:04 PM EDT AC RADHA RN Action/FYI: Chart review completed for the [facility] Osteoporosis Management in Women Who Had a Fracture (OMW) at the request of Betsy MCKEON. No order for a DEXA scan noted No exclusionary criteria clearly identified. REQUEST: We are bringing this patient to your attention to request your assessment and consideration for either a bone density (BMD) order or a prescription for a medication to treat or prevent osteoporosis, if appropriate. The HEDIS Measure, Osteoporosis Management in Women Who Had a Fracture (OMW) recommends assessing female patients 67 to 85 years of age who suffered a fracture and had either a bone mineral density (BMD) test or prescription for a drug to treat osteoporosis in the six months after the fracture. Patient identified by name and date of . Patient Attributed To: [facility] Payer: Betsy MCKEON Reason for review or outreach: Chart Review - 2022 [facility] OMW Measure - Bone density testing adherence Chart Review Details: Radha Priority Utilization in past 12 months: # Occurrences Date Last Occurrence Hospital Admission 0 0 Hospital Observation 0 0 ED 0 0 SNF / Acute Rehab / LTAC 0 0 Summary / Findings: The patient suffered a fracture on 08/04/23. Per chart review, no BMD results noted 2 years prior to the fracture date up to 6 months after the fracture date. No dispensation of or an active prescription to treat or prevent osteoporosis (12 months) prior to the fracture date up to 6 months after the fracture date). Action Taken: Encounter routed to provider Contact made with patient: No, Chart review only. Signature: Viridiana Trujillo RN documented in this encounterKindred Healthcare03-09-2023 History of Present illness Narrative* Silviano Rasmussne, PT - 10/30/2022 5:12 PM EST Episode Visit Count: 2 Therapist That Will Accept/Oversee The Plan Of Care: Silviano Rasmussen Start of Care Date: 10/16/22 Onset Date: 07/29/23 Plan of Care Certification Date: 10/16/22 Next Certification Due Date: 11/20/22 Patient Identified by Name and Date of : Yes REHABILITATION AND SPORTS THERAPY PHYSICAL THERAPY TREATMENT NOTE ASSESSMENT: Aliyah Leach tolerated the session with no issues. She demonstrated better tolerance to bridging when tightening the core to avoid back pain. The patient will continue to benefit from ongoing skilled physical therapy to progress toward set goals. PLAN FOR NEXT VISIT: Continue with gluteal and core strengthening SUBJECTIVE: Patient Reason for Visit: The stretching exercise she did not like. No pain today but wearing a pain patch. Pain: Pain Pain Level: 0 Pain Location: Hip - Right OBJECTIVE MEASURES WITH LEVEL OF FUNCTION: TREATMENT: Therapeutic Exercise: 1: Sidelying clam x 10 2: Sidelying clam GTB 3 x 10 reps 3: Hooklying bridge with strap assist 3 x 8 reps 4: Discussed the importance of strengthening the TA muscle due to current back pain related to coreweakness. Discussed how to properly perform a TA contraction and how to feel for the contraction when at home. 5: Hooklying TA x 10 reps holding 3 sec each Skilled Intervention: Patient was educated in proper exercise technique and purpose for exercises. Provided written instruction for home exercise program to facilitate proper performance and compliance. Billing Therapeutic Exercise Treatment Minutes: 42 Total Treatment Time Minutes (timed/untimed): 42 Silviano Rasmussen PT documented in this encounterKindred Healthcare02-23-2023 History of Present illness Narrative* Silviano Rasmussen PT - 10/16/2022 2:22 PM EST Episode Visit Count: 1 Therapist That Will Accept/Oversee The Plan Of Care: Silviano Rasmussen Start of Care Date: 10/16/22 Onset Date: 07/29/23 Plan of Care Certification Date: 10/16/22 Next Certification Due Date: 11/20/22 Patient Identified by Name and Date of : Yes REHABILITATION AND SPORTS THERAPY PHYSICAL THERAPY EVALUATION PLAN OF CARE: Assessment: Aliyah Leach presents with chief complaint of R hip pain that interferes with stair negotiation, walking . She presents with impairments in independence in exercise, range of motion, strength, and tissue tenderness. PROMIS (Patient-Reported Outcomes Measurement Information System) scores were reviewed and physical function domain identified as a rehabilitation concern. Prognosis for therapy is Good due to: current objective clinical presentation . Familiar pain with stretching glute max and some soreness with palpation of this muscle. She will benefit from skilled therapy services to meet the goals established for this plan of care as noted below. Goals for Episode of Care: created on 10/16/22 through 12/11/22 Pt will report no pain with stair negotiation [place] in home exercise program. Perform walking without pain. Increased strength of R gluteals to 4/5 or greater for improved gait mechanics Normal gait. Patient Goals: I would like to walk without a cane Planned Interventions, Frequency, and Duration: Current Frequency: 1x/week Duration: 4 weeks Total Number of Visits Planned: 4 Planned Treatment Interventions: Therapeutic exercise (22541), Neuromuscular re- education (15254), Manual therapy (45030), Self-prison management (59514) PLAN FOR NEXT VISIT: Assess reaction to HEP. Possibly trial strengthening gluteals. Assess hip ext strength. Patient demonstrates good understanding of plan of care and treatment. The above goals and plan of care were discussed and agreed upon by patient/family. SUBJECTIVE: Aliyah Leach is a 67 year old female seen today for Fall july 29. The spine is full of arthritis. The hip feels like it will give out but it has not done it. Broke 3 ribs from the fall and was stationary in a chair for awhile. Does not feel steady. The pain is nagging. Fell against the bath tub and landed on the ribs and R hip. Has New Knees. done in 2014 and 2011. Patient Goals: I would like to walk without a cane Functional Limitations: stair negotiation, walking Prior Level of Function: Independent without limitations Relevant History Preferred Language: Greek Intake Information: Prescription present Previous Treatment: Heat (Lidocaine patches) Pain: Pain Pain Level: 4 Pain Location: Hip - Right Description: Dull PROMIS Scales Higher is Better 08/11/2022 08/11/2022 10/09/2022 Phys Func - Score - - 35 (moderate dysfunction) Phys Func - Percentile - - 7 % GH Physical - Score - 42.3 (Good) - GH Physical - Percentile 22 % 22 % - GH Mental - Score - 53.3 (Very Good) - GH Mental - Percentile 63 % 63 % - Self-Eff Symptom - Score - - 41 (Average) Self-Eff Symptom - Percentile - - 18 % T-scores: mean of general population = 50. 5 points is clinically meaningfully difference Percentiles provide an indication of how the patient's score ranks in relation to the general population. Higher percentile rankings indicate better function/quality of life. 50th percentile is the average of the general population and indicates half of respondents had a worse score. T-scores: mean of general population = 50. 5 points is clinically meaningfully difference Percentiles provide an indication of how the patient's score ranks in relation to the general population. Higher percentile rankings indicate better function/quality of life. 50th percentile is the average of the general population and indicates half of respondents had a worse score. OBJECTIVE MEASURES WITH LEVEL OF FUNCTION: Hip Observations R Hip Palpation Tenderness: Gluteals Lumbar Spine AROM Lumbar Flexion: Normal Lumbar Extension: Normal Lumbar R Side-Bend: Normal Lumbar L Side-Bend: Normal Lumbar R Rotation: Normal Lumbar L Rotation: Normal LE AROM Tested?: Yes LE AROM R LE AROM: WNL L LE AROM: WNL R Hip Internal Rotation: 5 Degrees R Hip External Rotation: 50 Degrees (Stretching pain at end range) L Hip Internal Rotation: 5 Degrees L Hip External Rotation: 50 Degrees Lumbar Spine Evaluated?: Yes Joint Mobility - Hip R Posterior Hip Capsule: Hypomobile L Posterior Hip Capsule: Hypomobile LE Strength R Hip Extension: (Not assessed this visit) R Hip Flexion (L2): 4/5 R Hip ABduction: 3-/5 R Hip External Rotation: 3+/5 Gait Gait: Modified Independent Gait Distance (feet): 50 Gait Device: Cane Gait Deviations: Right Lower Extremity Gait Deviations Right Lower Extremity: Weight bearing decreased, Step length decreased Gait Observation: Trendelenburg on the R Education: Education Learning Preferences: Demonstration, Explanation, Performance, Printed Materials Barriers: None Learning/educational needs: Home exercise program, Plan of Care Education Provided: Yes, see treatment interventions for education provided Education Provided To: Patient Education Mode/Type: Demonstration, Explanation/Discussion, Literature/Printed Materials, Performance Response to Education/Teach Back: States/Identifies, Return Demonstration TREATMENT: PT Treatment Interventions: Therapeutic Exercise Evaluation Therapeutic Exercise: 1: Discussed therapy goals and exam findings. (HEP handout provided) 2: Supine piriformis stretch 2 x 30 sec Skilled Intervention: Patient was educated in proper exercise technique and purpose for exercises. Provided written instruction for home exercise program to facilitate proper performance and compliance. Correct performance of therapeutic exercises was facilitated with verbal and visual cuing. Billing * Evaluation Low Complexity: 1 Unit Therapeutic Exercise Treatment Minutes: 15 Total Treatment Time Minutes (timed/untimed): 39 Silviano Rasmussen PT documented in this encounterKindred Healthcare02-10-2023 Miscellaneous Notes* Letter - Mammography Coordinator - 10/03/2022 12:51 PM EST October 06, 2022 PID: [id number] Aliyah SumitRenae Leach [address] [place] [address] Dear Ms. Leach, We are pleased to inform you that the results of your recent breast imaging exam on 10/02/2022 are normal. Early detection of cancer is very important. We also understand recommendations regarding breast cancer screening are controversial. Please discuss with your primary care provider which strategy is best for you and whether a mammogram is right for you. Your imaging studies and report will be [facility] at [facility] as part of your permanent medical record and are available for your continuing care. Thank you for allowing us to help in meeting your health care needs. Sincerely, Dr. Yu Interpreting Radiologist [facility] (Normal over 40) documented in this encounterKindred Healthcare02-09-2023 History of Present illness Narrative* Jacque Merrill, RT(R) - 10/02/2022 11:30 AM EST Radiology Service Progress Note PATIENT NAME: Aliyah Leach DATE OF SERVICE: October 02, 2022 TIME: 11:11 AM PATIENT IDENTITY VERIFICATION COMPLETED USING TWO (2) IDENTIFIERS: Name and Date of confirmedby patient verbally. FALL SCREENING: Has the patient had 2 falls in the last year or 1 fall with injury or currently using an Ambulatory Assistive Device (Walker, Cane, Wheelchair, Crutches, etc.)? No PATIENT GENDER DATA: Female. status: : No status: NO. PATIENT RELEVANT IMPLANT DATA REVIEWED: Not Applicable RADIOLOGY DEPARTMENT: Mammography PERIPHERAL IV DATA: Not applicable SIGNED BY: RT Amanda(R) October 02, 2022 11:11 AM documented in this encounterKindred Healthcare01-09-2023 Miscellaneous Notes* Telephone Encounter - Alexandro Wilkins LPN - 09/01/2022 2:06 PM EST Patient phones requesting refills as follows: Requested Prescriptions Pending Prescriptions Disp Refills levothyroxine (SYNTHROID) 112 mcg tablet 90 tablet 3 Sig: Take 1 tablet by mouth once daily. Please review and advise. Alexandro Wilkins LPN documented in this encounterKindred Healthcare12-27-2022 History of Present illness Narrative* Ynes Cameron APRN.MIGRATORY GAME BIRD BIOLOGIST - 08/19/2022 3:17 PM EST This is a 67 year old female who presents today with: Patient presents with: Recheck: WC x 3 days, transferred to [place] x 3 days; fell at home and fractured 3 ribs; now hasopen sores on her bottom HISTORY OF PRESENT ILLNESS: Aliyah Leach is a 67 year old female. Patient presents with: Recheck: [facility] x 3 days, transferred to [place] x 3 days; fell at home and fractured 3 ribs; now hasopen sores on her bottom Pt presents today with complaint of sores on her bottom. Refers had a little spot on her right cheek -- for a couple of years. She was at [facility] for 3 days after a fall where she fractured 3 ribs. When she left the hospital, she went to [facility] for 3 additional days. She reports that she does have incontinence and she did have to sit in soiled linens for several hours. Had something on the left buttock and was previously told that thought there may be a yeast infection -- so she is also using nystatin/triamcinolone. She is also using calmoseptine. She has been trying to sit in different positions to try to get the pressure off of her bottom. She is interested in seeing wound care. PAST MEDICAL HISTORY: 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, S/P EBRT and HDR brachytherapy Malignant neoplasm of colon, unspecified site 1999 Colon cancer Obesity, unspecified Psoriasis Radiation 2005 for Cervical Cancer PAST SURGICAL HISTORY Procedure Laterality Date ARTHRP KNE CONDYLE&PLATU MEDIAL&LAT COMPARTMENTS 2010 left knee ARTHRP KNE CONDYLE&PLATU MEDIAL&LAT COMPARTMENTS 01/01/2015 Right knee BIOPSY BREAST OPEN INCISIONAL Bx of breast, incisional CHOLECYSTECTOMY 1987 Open cholecystectomy COLECTOMY PARTIAL W/ANASTOMOSIS 1999 Hemicolectomy COLONOSCOPY 10/2018 COLONOSCOPY FLX DX W/COLLJ SPEC WHEN PFRMD Colonoscopy COLONOSCOPY FLX DX W/COLLJ SPEC WHEN PFRMD 09/09/2005 Colonoscopy COLONOSCOPY FLX DX W/COLLJ SPEC WHEN PFRMD 11/15/2008 Colonoscopy COLONOSCOPY FLX DX W/COLLJ SPEC WHEN PFRMD 02/11/12, 03/2015 Repeat in 3 years (03/2018) DILATION & CURETTAGE DX&/THER NONOBSTETRIC 05/29/2011 Dilation & curettage PAST SURGICAL HISTORY OF Rt port placement REMV CATARACT EXTRACAP,INSERT LENS Left 10/2021 REPAIR FIRST ABDOMINAL WALL HERNIA 2000 Hernia repair, incisional TOT ABD HYST W/PARAORTIC & PELVIC LYMPH NODE MARK 06/19/2011 Exploratory laparotomy with extensive lysis of adhesions, total abdominal hysterectomy, bilateral salpingo- oophorectomy, cystoscopy, and omentectomy. ALLERGIES Detrol [Tolterodine Tartrate] and Penicillins MEDICATIONS Current Outpatient Medications Medication Sig lisinopril (ZESTRIL, PRINIVIL) 10 mg tablet Take 1 tablet by mouth once daily. glimepiride (AMARYL) 4 mg tablet Take 2 tablets by mouth daily before dinner. metFORMIN (GLUCOPHAGE) 1,000 mg tablet Take 1 tablet by mouth twice daily with meals. nystatin-triamcinolone (MYCOLOG) ointment Apply sparingly to perineum twice daily for irritation/infection. pravastatin (PRAVACHOL) 40 mg tablet Take 1 tablet by mouth daily at bedtime. FLUoxetine (PROZAC) 40 mg capsule Take 1 capsule by mouth once daily. levothyroxine (SYNTHROID) 112 mcg tablet Take 1 tablet by mouth once daily. vit C,X-Ez-vlftt-lutein-zeaxan (PRESERVISION AREDS-2) 250-90-40-1 mg Take 1 capsule by mouth twice daily with meals. lactobacillus comb no.10 (PROBIOTIC) 20 billion cell cap Take by mouth. dulaglutide (TRULICITY) 0.75 mg/0.5 mL pen injector Inject 0.75 mg subcutaneously one time a week. Inject dose once per week. Discard Pen After CYANOCOBALAMIN/COBAMAMIDE (B12 SUBLINGUAL) Dissolve under the tongue. Cholecalciferol, Vitamin D3, 25 mcg (1,000 unit) cap Take 1,000 Units by mouth once daily. blood sugar diagnostic (ACCU-CHEK ROBIN) test strip Use as instructed Lancets (ACCU-CHEK SOFTCLIX LANCETS) lancets Once daily. 250.40 Blood-Glucose Meter (ACCU-CHEK ROBIN PLUS METER) misc 1 Each once daily. multivitamin ORAL tablet Take 1 tablet by mouth once daily. No current facility-administered medications for this visit. FAMILY HISTORY Problem Relation Age of Onset Diabetes Mother Genitourinary () Mother renal failure Cancer Father rectal cancer Hypertension Sister Diabetes Sister Cancer Sister lymphoma, leukemia Diabetes Brother Breast Cancer Paternal Aunt diagnosed in her late 50's still alive and well Thyroid Cancer Niece/Nephew other (? kidney cancer) Nephew Social History Tobacco Use Smoking status: Never Smokeless tobacco: Never Vaping Use Vaping Use: Never used Substance Use Topics Alcohol use: Yes Comment: rarely Drug use: No EXAM: BP 132/80 Pulse 90 Resp 18 LMP 08/20/2005 SpO2 97% PHYSICAL EXAM: General Appearance: Well appearing, alert, in no acute distress, well-hydrated, well nourished.. Skin: Skin color, texture, turgor normal, no suspicious rashes or lesions. 1cm - stage 2 - right intergluteal cleft 2cm - L buttock 4cm - R right buttock Head: Normocephalic, no masses, lesions, tenderness or abnormalities. Lungs: Lungs clear to auscultation. No wheezing, rhonchi, rales.. Heart: RRR without murmur, gallop, or rubs. No ectopy. Neurologic: Gait normal. ASSESSMENT/PLAN: 1. Pressure injury of skin of buttock, unspecified injury stage, unspecified laterality - ICD9: 707.05, 707.20, ICD10: L89.309 Continue Calmoseptine. Referral placed to wound center. Continue to try to limit pressure on to the buttocks. Discussed trying to avoid shearing. Follow-up no improvement or any worsening. - CONSULT TO SKIN CARE TEAM Discussed treatment plan and patient voices understanding. Patient's questions answered appropriately. Medications and potential side effects were discussed and patient voices understanding. Return to the office as scheduled or as needed for worsening/no improvement. Ynes Cameron APRN.CELENA documented in this encounterKindred Healthcare12-23-2022 Miscellaneous Notes* Telephone Encounter - Elsie Cottrell LPN - 08/15/2022 9:10 AM EST Patient phones requesting refills as follows: Requested Prescriptions Pending Prescriptions Disp Refills lisinopril (ZESTRIL, PRINIVIL) 10 mg tablet 90 tablet 3 Sig: Take 1 tablet by mouth once daily. glimepiride (AMARYL) 4 mg tablet 180 tablet 3 Sig: Take 2 tablets by mouth daily before dinner. metFORMIN (GLUCOPHAGE) 1,000 mg tablet 180 tablet 1 Sig: Take 1 tablet by mouth twice daily with meals. DANGELO 03/31/22 NOV 08/19/22 Please review and advise. Elsie Cottrell LPN [facility]12-16-[facility] Miscellaneous Notes* Telephone Encounter - Rubi Rodriguez LPN - 08/08/2022 10:37 AM EST Patient phones requesting refills as follows: Requested Prescriptions Pending Prescriptions Disp Refills nystatin-triamcinolone (MYCOLOG) ointment 30 g 0 Sig: Apply sparingly to perineum twice daily for irritation/infection. DANGELO-03/31/22 Labs-03/27/22Jun-10/02/22 med filled 03/31/22 Please review and advise. Rubi Rodriguez LPN documented [facility] this [facility]12-16-2022 Miscellaneous Notes* Telephone Encounter - Rubi Rodriguez LPN - 08/08/2022 10:34 AM EST Patient phones requesting refills as follows: Requested Prescriptions Pending Prescriptions Disp Refills pravastatin (PRAVACHOL) 40 mg tablet 90 tablet 3 Sig: Take 1 tablet by mouth daily at bedtime. [facility]-03/31/22 Labs-03/27/22Jun-10/02/22 med filled 07/08/21 Please review and advise. Rubi Rodriguez LPN documented [facility] this [facility]12-12-2022 Miscellaneous Notes* Telephone Encounter - Ynes Cameron APRN.CNP - 08/04/2022 12:35 PM EST Noted. Agree w/ advice. Ynes Cameron APRN.CELENA * Telephone Encounter - Lindy Rincon RN - 08/02/2022 10:44 AM EST Daughter (Amelia) calls to report that patient is currently at [facility] for rehab following a hospitalstay for a fall with fractured ribs. Patient and daughter are not happy with current care being received. Directed Amelia to contact facility DON and Editorial Cartoonist to discuss and if still not happy with care then scotty could be contacted by Amelia as well. Amelia verbalizes understanding and reports that she might just bring patient home. Amelia to call back to schedule follow up appointment if she does bring patient home. Lindy Rincon RN documented in this encounterKindred Healthcare11-11-2022 Miscellaneous Notes* Telephone Encounter - GLENN Ma - 07/04/2022 1:07 PM EST Patient phones requesting refills as follows: Requested Prescriptions Pending Prescriptions Disp Refills FLUoxetine (PROZAC) 40 mg capsule 90 capsule 1 Sig: Take 1 capsule by mouth once daily. DANGELO: 03/31/2022 NOV: 10/02/2022 Please review and advise. GLENN Ma documented in this encounterKindred Healthcare09-29-2022 Miscellaneous Notes* Telephone Encounter - Radha Sna LPN - 05/22/2022 3:06 PM EDT Patient has been identified by name and date of : Yes Requested Prescriptions Pending Prescriptions Disp Refills levothyroxine (SYNTHROID) 112 mcg tablet 90 tablet 0 Sig: Take 1 tablet by mouth once daily. RX INSTRUCTIONS: MyChart request. Radha San LPN documented in this encounterKindred Healthcare09-19-2022 Miscellaneous Notes* Telephone Encounter - Maria Isabel Cota Ma - 05/12/2022 1:49 PM EDT Last office visit: 03/31/22 F/u scheduled: 10/02/22 Maria Isabel Cota Ma * Telephone Encounter - Chloe Talavera - 05/12/2022 1:43 PM EDT Patient has been identified by name and date of : Yes Requested Prescriptions Pending Prescriptions Disp Refills metFORMIN (GLUCOPHAGE) 1,000 mg tablet 180 tablet 1 Sig: Take 1 tablet by mouth twice daily with meals. RX INSTRUCTIONS: Patient aware RX will be sent to pharmacy. No need to notify patient. Chloe Banda Pss documented in this encounterKindred Healthcare08-04-2022 Miscellaneous Notes* Telephone Encounter - Bobby Grady MD - 03/27/2022 12:51 PM EDT Orders placed. * Telephone Encounter - Leila Kan - 03/27/2022 12:41 PM EDT Isiah ordered labs on patient and have . Lab just called and needs new orders placed. Pended. Leila Kan documented in this encounterKindred Healthcare08-04-2022 Miscellaneous Notes* Telephone Encounter - Rubi Rodriguez LPN - 03/27/2022 8:22 AM EDT Patient phones requesting refills as follows: Pending Prescriptions Disp Refills FLUOXETINE 40 MG CAPSULE 90 capsule 1 Sig: Take 1 capsule by mouth once daily. LUCERO: No DANGELO-09/23/21 Labs-09/19/21 NOV-03/31/22 med filled 09/18/21 Please review and advise. Rubi Rodriguez LPN documented [facility] this [facility]07-07-2022 Miscellaneous Notes* Telephone Encounter - Alexandro Wilkins LPN - 02/27/2022 8:55 AM EDT Patient phones requesting refills as follows: Pending Prescriptions Disp Refills GLIMEPIRIDE 4 MG TABLET 180 tablet 3 Sig: Take 2 tablets by mouth daily before dinner. LUCERO: No DANGELO 09/23/21 NOV 03/31/22 Please review and advise. Alexandro Wilkins LPN documented in this encounterKindred Healthcare06-27-2022 Miscellaneous Notes* Telephone Encounter - Alexandro Wilkins LPN - 02/17/2022 2:28 PM EDT Patient phones requesting refills as follows: Pending Prescriptions Disp Refills LEVOTHYROXINE 112 MCG TABLET 90 tablet 0 Sig: Take 1 tablet by mouth once daily. LUCERO: No DANGELO 09/23/21 NOV 03/31/22 Please review and advise. Alexandro Wilkins LPN documented in this encounterKindred Healthcare06-15-2022 Nurse Note* Teresa Vance RN - 02/05/2022 3:[address] Robert spoke with patient documented in this encounterKindred Healthcare06-15-2022 Miscellaneous Notes* Operative Report - Beni Robert MD - 02/05/2022 2:21 PM EDT OPERATIVE/PROCEDURE REPORT LOG ID: [id number] Surgery/Procedure Date: 02/05/2022 Incision/Procedure Start Time: 2:33 PM Incision Close/Procedure End Time: 2:50 PM Surgeon(s)/Proceduralist(s) and Mental Health Aide(s): Beni Robert MD MPH FRCPC No Additional Staff Procedure(s): Colonoscopy with polypectomy and biopsy Anesthesia: Monitored Anesthesia Care Brief History: 67F with hx of morbid obesity, aspen, VHR with mesh, CRC (hemicolectomy in 1999), cervical cancer [treated with pelvic radiation in 2005 most packets, endometrial cancer treated with JESSIKA/BSO in 2010. She had recent change in bowel habit with alternating constipation and diarrhea. Given prior history of colon cancer, colonoscopy was arranged. She has had prior colonoscopies that were unsuccessful at outside hospitals. However, she had colonoscopy in 2019 with us that was fairly normal. The risks, benefits and alternatives of the procedure were explained to the patient/responsible accompanying adult. This includes, but is not limited to, bleeding, infection and a 1:1000 risk of perforation. There is also a small risk of allergic reaction(s) due to sedatives, need for hospitalization, need for transfusions, need for surgery, and likelihood of missing a polyp or neoplastic lesion.The patient understands this and is amenable to proceeding. Procedure Details: The patient was placed in the left lateral decubitus position. A digital rectal exam was performed and this was normal. The Olympus colonoscope was introduced into the rectum and advanced to the cecum. The procedure was not technically difficult. The cecum was identified by the ap pendiceal orifice and the ileocecal valve. The bowel preparation was suboptimal with liquid stool and solid debris that intermittently clogged the scope, and the total withdrawal time was 8 minutes. The scope was then slowly withdrawn and the mucosal folds examined in detail. There were no abnormalities in the cecum, ascending colon, transverse colon, descending colon, sigmoid. Random colonic biopsies were taken from the descending colon to rule out microscopic colitis. A 4 mm flat polyp in thehepatic flexure was removed with cold snare polypectomy. A possible anastomosis was seen at 15 cm in the sigmoid. In the rectum, an ulcer was noted about 8 to 10 mm in size. It was clean-based and may be a stercoral ulcer. Biopsies were taken to rule out viral etiology. Retroflexion was not performed due to the rectal ulcer. The scope was then withdrawn and the patient tolerated the procedure well. Pre-Op/Pre-Procedure Diagnosis: Change in bowel habit Post-Op/Post-Procedure Diagnosis: 4 mm hepatic flexure polyp removed Possible anastomosis at 15 cm in the sigmoid 8 to 10 mm clean-based ulcer in the rectum, possible stercoral ulcer Biopsies taken to rule out microscopic colitis and viral etiology for ulcer Specimens: See above EBL: None Complications: None Recommendations: Follow up pathology She had previously responded well to less to pull but for some reason stopped this medication. 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 Suggest repeat colonoscopy for surveillance in 3 years. She will need a 2-day prep at that time. I/primary surgeon/proceduralist performed the entire procedure. Beni Robert MD MPH FRCPC SIGNATURE: Beni Robert MD MPH FRCPC PATIENT NAME: Aliyah Leach DATE: February 05, 2022 TIME: 3:02 PM PAGER/CONTACT #: [phone] documented in this encounterKindred Healthcare06-15-2022 History and physical note * Courtney Barrett APRN.MIGRATORY GAME BIRD BIOLOGIST - 02/05/2022 1:40 PM EDT HISTORY AND PHYSICAL EXAMINATION Aliyah Leach 1955 SERVICE DATE: 02/05/2022 SERVICE TIME: 1:08 PM PRIMARY CARE PHYSICIAN: Bobby Grady MD SURGEON: Dr Robert ANESTHESIA: MAC DIAGNOSIS: Change in bowel habits [R19.4] Hx of colon cancer, stage I [Z85.038] PROCEDURE: colonoscopy Subjective CHIEF COMPLAINT: Colonoscopy HPI: This is a 67 year old female who presents with hx colon cancer stage 1, 1999 with hx hemicolectomy no radiation or chemo. Family hx colon cancer father age 76. Denies GERD or abdominal pain, denies hematochezia or melena. Last colonoscopy 1 year ago. Pt with change in bowel habits over the past 6 months. States having very small, firm thin bowel movements. Unintentional weight loss of 20 lbs over 6 months. Pt presents for colonoscopy with Dr Robert. METS: Climb a flight of stairs or walk up a hill (5.50 METs) FUNCTIONAL STATUS: Independent 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, S/P EBRT and HDR brachytherapy Malignant neoplasm of colon, unspecified site 1999 Colon cancer Obesity, unspecified Psoriasis Radiation 2006 for Cervical Cancer PAST SURGICAL HISTORY Procedure Laterality Date ARTHRP KNE CONDYLE&PLATU MEDIAL&LAT COMPARTMENTS 2010 left knee ARTHRP KNE CONDYLE&PLATU MEDIAL&LAT COMPARTMENTS 01/01/2015 Right knee BIOPSY BREAST OPEN INCISIONAL Bx of breast, incisional CHOLECYSTECTOMY 1988 Open cholecystectomy COLECTOMY PARTIAL W/ANASTOMOSIS 2000 Hemicolectomy COLONOSCOPY 10/2018 COLONOSCOPY FLX DX W/COLLJ SPEC WHEN PFRMD Colonoscopy COLONOSCOPY FLX DX W/COLLJ SPEC WHEN PFRMD 09/09/2005 Colonoscopy COLONOSCOPY FLX DX W/COLLJ SPEC WHEN PFRMD 11/15/2008 Colonoscopy COLONOSCOPY FLX DX W/COLLJ SPEC WHEN PFRMD 02/11/12, 03/2015 Repeat in 3 years (03/2018) DILATION & CURETTAGE DX&/THER NONOBSTETRIC 05/29/2011 Dilation & curettage PAST SURGICAL HISTORY OF Rt port placement REMV CATARACT EXTRACAP,INSERT LENS Left 10/2021 REPAIR FIRST ABDOMINAL WALL HERNIA 2000 Hernia repair, incisional TOT ABD HYST W/PARAORTIC & PELVIC LYMPH NODE MARK 06/19/2011 Exploratory laparotomy with extensive lysis of adhesions, total abdominal hysterectomy, bilateral salpingo- oophorectomy, cystoscopy, and omentectomy. FAMILY HISTORY Problem Relation Age of Onset Diabetes Mother Genitourinary () Mother renal failure Cancer Father rectal cancer Hypertension Sister Diabetes Sister Cancer Sister lymphoma, leukemia Diabetes Brother Breast Cancer Paternal Aunt diagnosed in her late 50's still alive and well Thyroid Cancer Niece/Nephew other (? kidney cancer) Nephew Social History Tobacco Use Smoking status: Never Smoker Smokeless tobacco: Never Used Vaping Use Vaping Use: Never used Substance Use Topics Alcohol use: Yes Comment: rarely Drug use: No Prior to Admission medications as of 02/05/22 1333 Medication Sig Last Dose Taking ibuprofen (MOTRIN) 200 mg tablet Take 200 mg by mouth every 6 hours as needed. 02/01/2022 Yes levothyroxine (SYNTHROID) 112 mcg tablet Take 1 tablet by mouth once daily. 02/04/2022 at Unknown time Yes metFORMIN (GLUCOPHAGE) 1,000 mg tablet Take 1 tablet by mouth twice daily with meals. 02/04/2022 at Unknown time Yes lisinopril (ZESTRIL, PRINIVIL) 10 mg tablet Take 1 tablet by mouth once daily. 02/05/2022 at 0730 Yes glimepiride (AMARYL) 4 mg tablet Take 2 tablets by mouth daily before dinner. 02/04/2022 at Unknown time Yes FLUoxetine HCl (PROZAC) 40 mg capsule Take 1 capsule by mouth once daily. 02/04/2022 at Unknown timeYes pravastatin (PRAVACHOL) 40 mg tablet Take 1 tablet by mouth daily at bedtime. 02/04/2022 at Unknown time Yes peg 3350-Electrolytes (GOLYTELY) 236-22.74-6.74 -5.86 gram suspension Refer to printed patient instructions that will be mailed to you. peg 3350-Electrolytes (GOLYTELY) 236-22.74-6.74 -5.86 gram suspension Refer to printed patient instructions that will be mailed to you. vit C,T-Id-yzkjy-lutein-zeaxan (PRESERVISION AREDS-2) 250-90-40-1 mg Take 1 capsule by mouth twice daily with meals. 02/02/2022 ammonium lactate (LAC-HYDRIN) 12 % cream Apply to affected area as needed. Patient not taking: Reported on 01/30/2022 lactobacillus comb no.10 (PROBIOTIC) 20 billion cell cap Take by mouth. 02/02/2022 dulaglutide (TRULICITY) 0.75 mg/0.5 mL pen injector Inject 0.75 mg subcutaneously one time a week. Inject dose once per week. Discard Pen After 02/02/2022 CYANOCOBALAMIN/COBAMAMIDE (B12 SUBLINGUAL) Dissolve under the tongue. 02/02/2022 Cholecalciferol, Vitamin D3, (VITAMIN D) 1,000 unit cap Take 1,000 Units by mouth once daily. 02/02/2022 blood sugar diagnostic (ACCU-CHEK ROBIN) test strip Use as instructed Lancets (ACCU-CHEK SOFTCLIX LANCETS) lancets Once daily. 250.40 Blood-Glucose Meter (ACCU-CHEK ROBIN PLUS METER) misc 1 Each once daily. multivitamin ORAL tablet Take 1 tablet by mouth once daily. 02/02/2022 ALLERGIES Allergen Reactions Detrol [Tolterodine* Rash Penicillins Rash COMPLETE REVIEW OF SYSTEMS: GENERAL: Unintentional weight loss, 25lbs in one year RESPIRATORY: hx dry cough, recent, no asthma, no tobacco abuse, denies ROSE Cardiac: Negative for chest pain, leg swelling, CHF or palpitations, +HTN, +HLD GI: See HPI : incontinece after radiation for uterine cancer MUSCULOSKELETAL: lumbar disc disease PSYCH: depression ENDOCRINE:DM type II FBS 193, HgA1C 6.9, +hypothyroidism NEURO: No history of headaches, syncope, paralysis, seizures or tremors Negative for stroke, seizures or headaches. Heme/Onc: No hx blood clots, clotting disorders, easy bruising, hx colon cancer, uterine cancer andcervical cancer Objective PHYSICAL EXAM: 02/05/22 1255 BP: 146/61 Pulse: 94 Resp: 20 Temp: 36 C (96.8 F) TempSrc: Temporal SpO2: 95% Weight: 115.2 kg (254 lb) Height: 162.6 cm (5' 4) Body mass index is 43.6 kg/m . MENTAL STATUS: alert, oriented to person, place and time HEENT: Normocephalic/atraumatic, pharynx clear LUNGS: Lungs clear to auscultation, Good diaphragmatic excursion CARDIAC: Normal S1 and S2; no rubs, murmurs, or gallops ABDOMEN: Soft, nontender and obese EXTREMITIES: Extremities normal, no deformities, edema, clubbing or skin discoloration. Good capillary refill. Diagnostic tests reviewed for today's visit: Lab Value Units Date High Low HB No results within date range. HCT No results within date range. WBC No results within date range. PLT No results within date range. NA 138 mmol/L 09/19/2021 144 136 K 4.1 mmol/L 09/19/2021 5.1 3.7 GLUC 175 mg/dL 09/19/2021 99 74 BUN 15 mg/dL 09/19/2021 21 7 CREAT 0.65 mg/dL 09/19/2021 0.96 0.58 PTSEC No results within date range. INR No results within date range. APTT No results within date range. ALT 41 U/L 09/19/2021 38 7 AST 35 U/L 09/19/2021 35 13 TBILI 0.4 mg/dL 09/19/2021 1.3 0.2 TSH No results within date range. Lab Value Units Date High Low HCGQT No results within date range. UHCG No results within date range. HCG, BODY* No results within date range. Lab Value Units Date High Low ABORHD No results within date range. ABSCREEN No results within date range. Hemoglobin A1C (%) Date Value 09/19/2021 6.9 04/04/2021 6.9 12/05/2020 7.4 07/25/2020 7.5 02/22/2020 7.5 Assessment/Plan Well controlled ANESTHESIA FINDINGS: Intubation History: No history of difficult intubation Significant Anesthesia Considerations: None FAMILY PROBLEMS WITH ANESTHESIA: no history of adverse anesthetic event Patient has the following medical conditions Diabetes - Well controlled HTN - Well controlled on medication Hyperlipidemia on statin Obesity PLAN Procedure Diagnosis: Change in bowel habits [R19.4] Hx of colon cancer, stage I [Z85.038] Planned Procedure: colonoscopy Planned Anesthetic: MAC SIGNATURE: Courtney Barrett APRN.CNP PATIENT NAME: Aliyah Leach DATE: February 05, 2022 TIME: 1:08 PM PAGER/CONTACT #: documented in this encounterKindred Healthcare06-09-2022 History of Present illness Narrative* Michael Rolon MD - 01/30/2022 1:25 PM EDT Images from the original note were not included. Gynecologic Oncology Note [facility] HPI: This is a 61 year old patient with a history of colon cancer in 2000, Stage IB Cervical cancerdiagnosed in 2005, and high grade uterine cancer diagnosed in 2010 with known vesicovaginal fistulahere for surveillance care. States she has lost 25 lbs over past year which she attributes to her sister dying. States she diedof leukemia at age 83. States she was depressed but now mood is improving with weather, has hobbiesincluding croqueting, TV. States continuous urinary leakage is unchanged from previous visits. Wears pads daily. Also endorses occasional fecal incontinence. Does endorse occasional constipation and right buttock sore from sitting in urine. Not currently sexually active. Lives alone. No vaginal bleeding. She has 2 sons and 1 daughter - with no known cancer history. ROS: 14 point ROS negative unless indicated in above HPI. Oncologic history: 1) 10/2005: She was diagnosed with a stage IB1 endocervical adenocarcinoma in 10/2005. She had a LEEPand ECC and had positive margins for endocervical adenocarcinoma. She was treated with primary EBRT (no chemotherapy) and HDR brachytherapy after they found out thather hernia repair was done with a large piece of mesh in the abdominal wall. 2) 05/29/2011 - Cervical dilatation and uterine curettage. Path: Poorly differentiated carcinoma. 3) 06/19/2011 - Exploratory laparotomy with extensive lysis of adhesions, total abdominal hysterectomy, bilateral salpingo- oophorectomy, cystoscopy, and omentectomy. 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 Busch). 4) S/P 6 cycles of Carboplatin/Taxol completed 11/13/[address] Buck[place] in [place]. Pap history: 07/02/2017: Atypical glandular cells, negative HPV 07/22/2017: Colposcopy normal. 12/2017: Pap - limited, negative 04/2019: negative 12/2020: Atypical glandular cells 01/2021: normal vaginoscopy, biopsy taken of glandular tissue at vesico-vaginal fistula (2 o'clock) Path: urothelial mucosa with chronic inflammation ROS: All other medical and surgical histories reviewed and updated. PE: BP 119/72 (BP Site: Left Arm, BP Position: Sitting, BP Cuff Size: Large Adult) Pulse 95 Temp 36.2 C (97.1 F) (Temporal) Ht 162.6 cm (5' 4) Wt 117.8 kg (259 lb 12.8 oz) LMP 08/20/2005 SpO2 96% BMI 44.59 kg/m Gen: well appearing, NAD Abd: soft, non distended, midline vertical scar, umbilicus obliterated and firm, RUQ scar, obese Pelvic: 5 mm VVF appreciated with clear yellow drainage, cuff intact, no obvious nodularity Rectal: deferred Ext: without abnormalities Lab/Imaging: A/P: This is a 67 year old with a history of cervical, uterine, colon cancer here for surveillance care. Endometrial Cancer - DEZ - Only tested for 2/4 mismatch repair proteins as surgery was in 2010 (colon cancer was in 1999) - Given colon and endometrial cancers, will refer for genetic testing - Encouraged yearly exams, permission given for f/u with local senior product engineer if she prefers Cervical Cancer - no evidence of recurrence - pap smear collected Colon Cancer - recent colonoscopy in 2019 - benign - upcoming colonoscopy schedule 02/05/22 Vesico-vaginal Fistula - identified in 2010 s/p surgery - s/p urology c/s and evaluation in 2020 - would require either cystectomy or radical surgical repair and so is managing conservatively at this time Depression - 2/2 to sister's - likely contributor to weight loss - resources offered, patient declines at this time, states mood is starting to improve D/w Michael Rolon MD, MPH Gynecologic Oncologist SIGNATURE: Valery Noland DO PATIENT NAME: Aliyah Leach DATE: 01/30/2022 TIME: 2:24 PM PAGER/CONTACT #: [phone] Medical Decision Making: Problems: Moderate: 2+ stable chronic illnesses Data: Unique source(s) for external note(s) reviewed: 3+ Unique test result(s) reviewed: 3+ Unique test(s) ordered: 2 Independent interpretation of test from other physician/QHCP Risk: Low: Low risk from testing/treatment Medical Decision Making Level: 4 - Moderate documented in this encounterKindred Healthcare04-25-2022 Miscellaneous Notes* Telephone Encounter - Jeana Lentz - 12/16/2021 2:29 PM EDT The patient is getting a Colonoscopy with a 2 day Golytely prep and [facility] Jeana Lentz documented in this encounterKindred Healthcare12-08-2021 History of Present illness Narrative* Afia Stafford RT(R) - 07/31/2021 3:00 PM EST Radiology Service Progress Note PATIENT NAME: Aliyah Leach DATE OF SERVICE: July 31, 2021 TIME: 2:56 PM PATIENT IDENTITY VERIFICATION COMPLETED USING TWO (2) IDENTIFIERS: Name and Date of confirmedby patient verbally. FALL SCREENING: Has the patient had 2 falls in the last year or 1 fall with injury or currently using an Ambulatory Assistive Device (Walker, Cane, Wheelchair, Crutches, etc.)? No PATIENT GENDER DATA: Female. status: : No status: NO. 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 Endometrial cancer 06/13/2011 12/25/2011 Malignant neoplasm of cervix uteri, unspecified site 09/07/2007 12/03/2016 Type 2 diabetes mellitus without complication 01/10/2016 Malignant neoplasm of cervix uteri 12/31/2005 09/07/2007 Depressive disorder, not elsewhere classified 12/03/2016 ASA CLASS III 12/31/2005 12/03/2016 Benign neoplasm of colon 09/09/2005 017 History of malignant neoplasm of large intestine 09/09/2005 12/03/2016 Personal history of colonic polyps 09/09/2005 12/03/2016 documented as of this encounter (statuses as of 05/12/2022) [facility] of Past illness Narrative* Problem Noted Date Resolved Date 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 Endometrial cancer 06/13/2011 12/25/2011 Malignant neoplasm of cervix uteri, unspecified site 09/07/2007 12/03/2016 Type 2 diabetes mellitus without complication 01/10/2016 Malignant neoplasm of cervix uteri 12/31/2005 09/07/2007 Depressive disorder, not elsewhere classified 12/03/2016 ASA CLASS III 12/31/2005 12/03/2016 Benign neoplasm of colon 09/09/2005 017 History of malignant neoplasm of large intestine 09/09/2005 12/03/2016 Personal history of colonic polyps 09/09/2005 12/03/2016 documented as of this encounter (statuses as of 05/22/2022) [facility] of Past illness Narrative* Problem Noted Date Resolved Date 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 Endometrial cancer 06/13/2011 12/25/2011 Malignant neoplasm of cervix uteri, unspecified site 09/07/2007 12/03/2016 Type 2 diabetes mellitus without complication 01/10/2016 Malignant neoplasm of cervix uteri 12/31/2005 09/07/2007 Depressive disorder, not elsewhere classified 12/03/2016 ASA CLASS III 12/31/2005 12/03/2016 Benign neoplasm of colon 09/09/2005 017 History of malignant neoplasm of large intestine 09/09/2005 12/03/2016 Personal history of colonic polyps 09/09/2005 12/03/2016 documented as of this encounter (statuses as of 07/04/2022) [facility] of Past illness Narrative* Problem Noted Date Resolved Date 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 Endometrial cancer 06/13/2011 12/25/2011 Malignant neoplasm of cervix uteri, unspecified site 09/07/2007 12/03/2016 Type 2 diabetes mellitus without complication 01/10/2016 Malignant neoplasm of cervix uteri 12/31/2005 09/07/2007 Depressive disorder, not elsewhere classified 12/03/2016 ASA CLASS III 12/31/2005 12/03/2016 Benign neoplasm of colon 09/09/2005 017 History of malignant neoplasm of large intestine 09/09/2005 12/03/2016 Personal history of colonic polyps 09/09/2005 12/03/2016 documented as of this encounter (statuses as of 08/04/2022) [facility] of Past illness Narrative* Problem Noted Date Resolved Date 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 Endometrial cancer 06/13/2011 12/25/2011 Malignant neoplasm of cervix uteri, unspecified site 09/07/2007 12/03/2016 Type 2 diabetes mellitus without complication 01/10/2016 Malignant neoplasm of cervix uteri 12/31/2005 09/07/2007 Depressive disorder, not elsewhere classified 12/03/2016 ASA CLASS III 12/31/2005 12/03/2016 Benign neoplasm of colon 09/09/2005 017 History of malignant neoplasm of large intestine 09/09/2005 12/03/2016 Personal history of colonic polyps 09/09/2005 12/03/2016 documented as of this encounter (statuses as of 08/08/2022) [facility] of Past illness Narrative* Problem Noted Date Resolved Date 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 Endometrial cancer 06/13/2011 12/25/2011 Malignant neoplasm of cervix uteri, unspecified site 09/07/2007 12/03/2016 Type 2 diabetes mellitus without complication 01/10/2016 Malignant neoplasm of cervix uteri 12/31/2005 09/07/2007 Depressive disorder, not elsewhere classified 12/03/2016 ASA CLASS III 12/31/2005 12/03/2016 Benign neoplasm of colon 09/09/2005 017 History of malignant neoplasm of large intestine 09/09/2005 12/03/2016 Personal history of colonic polyps 09/09/2005 12/03/2016 documented as of this encounter (statuses as of 08/11/2022) [facility] of [facility] illness Narrative* Problem Noted Date Resolved Date 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 Endometrial cancer 06/13/2011 12/25/2011 Malignant neoplasm of cervix uteri, unspecified site 09/07/2007 12/03/2016 Type 2 diabetes mellitus without complication 01/10/2016 Malignant neoplasm of cervix uteri 12/31/2005 09/07/2007 Depressive disorder, not elsewhere classified 12/03/2016 ASA CLASS III 12/31/2005 12/03/2016 Benign neoplasm of colon 09/09/2005 017 History of malignant neoplasm of large intestine 09/09/2005 12/03/2016 Personal history of colonic polyps 09/09/2005 12/03/2016 documented as of this encounter (statuses as of 08/16/2022) [facility] History of Past illness Narrative* Problem Noted Date Resolved Date 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 Endometrial cancer 06/13/2011 12/25/2011 Malignant neoplasm of cervix uteri, unspecified site 09/07/2007 12/03/2016 Type 2 diabetes mellitus without complication 01/10/2016 Malignant neoplasm of cervix uteri 12/31/2005 09/07/2007 Depressive disorder, not elsewhere classified 12/03/2016 ASA CLASS III 12/31/2005 12/03/2016 Benign neoplasm of colon 09/09/2005 017 History of malignant neoplasm of large intestine 09/09/2005 12/03/2016 Personal history of colonic polyps 09/09/2005 12/03/2016 documented as of this encounter (statuses as of 08/25/2022) [facility] History of Past illness Narrative* Problem Noted Date Resolved Date 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 Endometrial cancer 06/13/2011 12/25/2011 Malignant neoplasm of cervix uteri, unspecified site 09/07/2007 12/03/2016 Type 2 diabetes mellitus without complication 01/10/2016 Malignant neoplasm of cervix uteri 12/31/2005 09/07/2007 Depressive disorder, not elsewhere classified 12/03/2016 ASA CLASS III 12/31/2005 12/03/2016 Benign neoplasm of colon 09/09/2005 017 History of malignant neoplasm of large intestine 09/09/2005 12/03/2016 Personal history of colonic polyps 09/09/2005 12/03/2016 documented as of this encounter (statuses as of 09/01/2022) [facility] History of Past illness Narrative* Problem Noted Date Resolved Date 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 Endometrial cancer 06/13/2011 12/25/2011 Malignant neoplasm of cervix uteri, unspecified site 09/07/2007 12/03/2016 Type 2 diabetes mellitus without complication 01/10/2016 Malignant neoplasm of cervix uteri 12/31/2005 09/07/2007 Depressive disorder, not elsewhere classified 12/03/2016 ASA CLASS III 12/31/2005 12/03/2016 Benign neoplasm of colon 09/09/2005 017 History of malignant neoplasm of large intestine 09/09/2005 12/03/2016 Personal history of colonic polyps 09/09/2005 12/03/2016 documented as of this encounter (statuses as of 12/16/2021) [facility] History of Past illness Narrative* Problem Noted Date Resolved Date 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 Endometrial cancer 06/13/2011 12/25/2011 Malignant neoplasm of cervix uteri, unspecified site 09/07/2007 12/03/2016 Type 2 diabetes mellitus without complication 01/10/2016 Malignant neoplasm of cervix uteri 12/31/2005 09/07/2007 Depressive disorder, not elsewhere classified 12/03/2016 ASA CLASS III 12/31/2005 12/03/2016 Benign neoplasm of colon 09/09/2005 017 History of malignant neoplasm of large intestine 09/09/2005 12/03/2016 Personal history of colonic polyps 09/09/2005 12/03/2016 documented as of this encounter (statuses as of 01/31/2022) [facility] History of Past illness Narrative* Problem Noted Date Resolved Date 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 Endometrial cancer 06/13/2011 12/25/2011 Malignant neoplasm of cervix uteri, unspecified site 09/07/2007 12/03/2016 Type 2 diabetes mellitus without complication 01/10/2016 Malignant neoplasm of cervix uteri 12/31/2005 09/07/2007 Depressive disorder, not elsewhere classified 12/03/2016 ASA CLASS III 12/31/2005 12/03/2016 Benign neoplasm of colon 09/09/2005 017 History of malignant neoplasm of large intestine 09/09/2005 12/03/2016 Personal history of colonic polyps 09/09/2005 12/03/2016 documented as of this encounter (statuses as of 02/06/2022) [facility] History of Past illness Narrative* Problem Noted Date Resolved Date 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 Endometrial cancer 06/13/2011 12/25/2011 Malignant neoplasm of cervix uteri, unspecified site 09/07/2007 12/03/2016 Type 2 diabetes mellitus without complication 01/10/2016 Malignant neoplasm of cervix uteri 12/31/2005 09/07/2007 Depressive disorder, not elsewhere classified 12/03/2016 ASA CLASS III 12/31/2005 12/03/2016 Benign neoplasm of colon 09/09/2005 017 History of malignant neoplasm of large intestine 09/09/2005 12/03/2016 Personal history of colonic polyps 09/09/2005 12/03/2016 documented as of this encounter (statuses as of 02/17/2022) [facility] History of Past illness Narrative* Problem Noted Date Resolved Date 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 Endometrial cancer 06/13/2011 12/25/2011 Malignant neoplasm of cervix uteri, unspecified site 09/07/2007 12/03/2016 Type 2 diabetes mellitus without complication 01/10/2016 Malignant neoplasm of cervix uteri 12/31/2005 09/07/2007 Depressive disorder, not elsewhere classified 12/03/2016 ASA CLASS III 12/31/2005 12/03/2016 Benign neoplasm of colon 09/09/2005 017 History of malignant neoplasm of large intestine 09/09/2005 12/03/2016 Personal history of colonic polyps 09/09/2005 12/03/2016 documented as of this encounter (statuses as of 02/27/2022) [facility] History of Past illness Narrative* Problem Noted Date Resolved Date 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 Endometrial cancer 06/13/2011 12/25/2011 Malignant neoplasm of cervix uteri, unspecified site 09/07/2007 12/03/2016 Type 2 diabetes mellitus without complication 01/10/2016 Malignant neoplasm of cervix uteri 12/31/2005 09/07/2007 Depressive disorder, not elsewhere classified 12/03/2016 ASA CLASS III 12/31/2005 12/03/2016 Benign neoplasm of colon 09/09/2005 017 History of malignant neoplasm of large intestine 09/09/2005 12/03/2016 Personal history of colonic polyps 09/09/2005 12/03/2016 documented as of this encounter (statuses as of 03/27/2022) [facility] History of Past illness Narrative* Problem Noted Date Resolved Date 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 Endometrial cancer 06/13/2011 12/25/2011 Malignant neoplasm of cervix uteri, unspecified site 09/07/2007 12/03/2016 Type 2 diabetes mellitus without complication 01/10/2016 Malignant neoplasm of cervix uteri 12/31/2005 09/07/2007 Depressive disorder, not elsewhere classified 12/03/2016 ASA CLASS III 12/31/2005 12/03/2016 Benign neoplasm of colon 09/09/2005 017 History of malignant neoplasm of large intestine 09/09/2005 12/03/2016 Personal history of colonic polyps 09/09/2005 12/03/2016 documented as of this encounter (statuses as of 03/27/2022) [facility] History of Past illness Narrative* Problem Noted Date Resolved Date 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 Endometrial cancer 06/13/2011 12/25/2011 Malignant neoplasm of cervix uteri, unspecified site 09/07/2007 12/03/2016 Type 2 diabetes mellitus without complication 01/10/2016 Malignant neoplasm of cervix uteri 12/31/2005 09/07/2007 Depressive disorder, not elsewhere classified 12/03/2016 ASA CLASS III 12/31/2005 12/03/2016 Benign neoplasm of colon 09/09/2005 017 History of malignant neoplasm of large intestine 09/09/2005 12/03/2016 Personal history of colonic polyps 09/09/2005 12/03/2016 documented as of this encounter (statuses as of 10/07/2022) [facility] History of Past illness Narrative* Problem Noted Date Resolved Date 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 Endometrial cancer 06/13/2011 12/25/2011 Malignant neoplasm of cervix uteri, unspecified site 09/07/2007 12/03/2016 Type 2 diabetes mellitus without complication 01/10/2016 Malignant neoplasm of cervix uteri 12/31/2005 09/07/2007 Depressive disorder, not elsewhere classified 12/03/2016 ASA CLASS III 12/31/2005 12/03/2016 Benign neoplasm of colon 09/09/2005 017 History of malignant neoplasm of large intestine 09/09/2005 12/03/2016 Personal history of colonic polyps 09/09/2005 12/03/2016 documented as of this encounter (statuses as of 10/17/2022) [facility] History of Past illness Narrative* Problem Noted Date Resolved Date 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 Endometrial cancer 06/13/2011 12/25/2011 Malignant neoplasm of cervix uteri, unspecified site 09/07/2007 12/03/2016 Type 2 diabetes mellitus without complication 01/10/2016 Malignant neoplasm of cervix uteri 12/31/2005 09/07/2007 Depressive disorder, not elsewhere classified 12/03/2016 ASA CLASS III 12/31/2005 12/03/2016 Benign neoplasm of colon 09/09/2005 017 History of malignant neoplasm of large intestine 09/09/2005 12/03/2016 Personal history of colonic polyps 09/09/2005 12/03/2016 documented as of this encounter (statuses as of 10/31/2022) [facility] History of Past illness Narrative* Problem Noted Date Resolved Date 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 Endometrial cancer 06/13/2011 12/25/2011 Malignant neoplasm of cervix uteri, unspecified site 09/07/2007 12/03/2016 Type 2 diabetes mellitus without complication 01/10/2016 Malignant neoplasm of cervix uteri 12/31/2005 09/07/2007 Depressive disorder, not elsewhere classified 12/03/2016 ASA CLASS III 12/31/2005 12/03/2016 Benign neoplasm of colon 09/09/2005 017 History of malignant neoplasm of large intestine 09/09/2005 12/03/2016 Personal history of colonic polyps 09/09/2005 12/03/2016 documented as of this encounter (statuses as of 11/04/2022) [facility] History of Past illness Narrative* Problem Noted Date Resolved Date 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 Endometrial cancer 06/13/2011 12/25/2011 Malignant neoplasm of cervix uteri, unspecified site 09/07/2007 12/03/2016 Type 2 diabetes mellitus without complication 01/10/2016 Malignant neoplasm of cervix uteri 12/31/2005 09/07/2007 Depressive disorder, not elsewhere classified 12/03/2016 ASA CLASS III 12/31/2005 12/03/2016 Benign neoplasm of colon 09/09/2005 017 History of malignant neoplasm of large intestine 09/09/2005 12/03/2016 Personal history of colonic polyps 09/09/2005 12/03/2016 documented as of this encounter (statuses as of 11/06/2022) [facility] History of Past illness Narrative* Problem Noted Date Resolved Date 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 Endometrial cancer 06/13/2011 12/25/2011 Malignant neoplasm of cervix uteri, unspecified site 09/07/2007 12/03/2016 Type 2 diabetes mellitus without complication 01/10/2016 Malignant neoplasm of cervix uteri 12/31/2005 09/07/2007 Depressive disorder, not elsewhere classified 12/03/2016 ASA CLASS III 12/31/2005 12/03/2016 Benign neoplasm of colon 09/09/2005 017 History of malignant neoplasm of large intestine 09/09/2005 12/03/2016 Personal history of colonic polyps 09/09/2005 12/03/2016 documented as of this encounter (statuses as of 11/12/2022) [facility] History of Past illness Narrative* Problem Noted Date Resolved Date 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 Endometrial cancer 06/13/2011 12/25/2011 Malignant neoplasm of cervix uteri, unspecified site 09/07/2007 12/03/2016 Type 2 diabetes mellitus without complication 01/10/2016 Malignant neoplasm of cervix uteri 12/31/2005 09/07/2007 Depressive disorder, not elsewhere classified 12/03/2016 ASA CLASS III 12/31/2005 12/03/2016 Benign neoplasm of colon 09/09/2005 017 History of malignant neoplasm of large intestine 09/09/2005 12/03/2016 Personal history of colonic polyps 09/09/2005 12/03/2016 documented as of this encounter (statuses as of 11/12/2022) [facility] History of Past illness Narrative* Problem Noted Date Resolved Date 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 Endometrial cancer 06/13/2011 12/25/2011 Malignant neoplasm of cervix uteri, unspecified site 09/07/2007 12/03/2016 Type 2 diabetes mellitus without complication 01/10/2016 Malignant neoplasm of cervix uteri 12/31/2005 09/07/2007 Depressive disorder, not elsewhere classified 12/03/2016 ASA CLASS III 12/31/2005 12/03/2016 Benign neoplasm of colon 09/09/2005 017 History of malignant neoplasm of large intestine 09/09/2005 12/03/2016 Personal history of colonic polyps 09/09/2005 12/03/2016 documented as of this encounter (statuses as of 12/29/2022) [facility] History of Past illness Narrative* Problem Noted Date Resolved Date 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 Endometrial cancer 06/13/2011 12/25/2011 Malignant neoplasm of cervix uteri, unspecified site 09/07/2007 12/03/2016 Type 2 diabetes mellitus without complication 01/10/2016 Malignant neoplasm of cervix uteri 12/31/2005 09/07/2007 Depressive disorder, not elsewhere classified 12/03/2016 ASA CLASS III 12/31/2005 12/03/2016 Benign neoplasm of colon 09/09/2005 017 History of malignant neoplasm of large intestine 09/09/2005 12/03/2016 Personal history of colonic polyps 09/09/2005 12/03/2016 documented as of this encounter (statuses as of 02/14/2023) [facility] History of Past illness Narrative* Problem Noted Date Resolved Date 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 Endometrial cancer 06/13/2011 12/25/2011 Malignant neoplasm of cervix uteri, unspecified site 09/07/2007 12/03/2016 Type 2 diabetes mellitus without complication 01/10/2016 Malignant neoplasm of cervix uteri 12/31/2005 09/07/2007 Depressive disorder, not elsewhere classified 12/03/2016 ASA CLASS III 12/31/2005 12/03/2016 Benign neoplasm of colon 09/09/2005 017 History of malignant neoplasm of large intestine 09/09/2005 12/03/2016 Personal history of colonic polyps 09/09/2005 12/03/2016 documented as of this encounter (statuses as of 02/14/2023) [facility] History of Past illness Narrative* Problem Noted Date Resolved Date 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 Endometrial cancer 06/13/2011 12/25/2011 Malignant neoplasm of cervix uteri, unspecified site 09/07/2007 12/03/2016 Type 2 diabetes mellitus without complication 01/10/2016 Malignant neoplasm of cervix uteri 12/31/2005 09/07/2007 Depressive disorder, not elsewhere classified 12/03/2016 ASA CLASS III 12/31/2005 12/03/2016 Benign neoplasm of colon 09/09/2005 017 History of malignant neoplasm of large intestine 09/09/2005 12/03/2016 Personal history of colonic polyps 09/09/2005 12/03/2016 documented as of this encounter (statuses as of 02/24/2023) [facility] History of Past illness Narrative* Problem Noted Date Diagnosed Date Resolved Date Urinary urgency 03/08/2015 12/03/2016 Frequency of micturition 03/08/201507/2017 Type 2 diabetes mellitus wit h proteinuria or albuminuria 08/16/2014 04/23/2016 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 Endometrial cancer 06/13/2011 2 Malignant neoplasm of cervix uteri, unspecified site 09/07/2007 12/03/2016 Type 2 diabetes mellitus without complication 03/16/20 07 01/10/2016 Malignant neoplasm of cervix uteri 12/31/2005 09/07/2007 Depressive disorder, not elsewhere classified 01/01/20 06 12/03/2016 ASA CLASS III 12/31/2005 12/03/2016 Benign neoplasm of colon 09/09/200507/2017 History of malignant neoplas m of large intestine 09/09/2005 12/03/2016 Personal history of colonic polyps 09/09/2005 12/03/2016 documented as of this encounter (statuses as of 03/31/2023) [facility] History of Past illness Narrative* Problem Noted Date Diagnosed Date Resolved Date Urinary urgency 03/08/2015 12/03/2016 Frequency of micturition 03/08/201507/2017 Type 2 diabetes mellitus wit h proteinuria or albuminuria 08/16/2014 04/23/2016 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 Endometrial cancer 06/13/2011 2 Malignant neoplasm of cervix uteri, unspecified site 09/07/2007 12/03/2016 Type 2 diabetes mellitus without complication 03/16/20 07 01/10/2016 Malignant neoplasm of cervix uteri 12/31/2005 09/07/2007 Depressive disorder, not elsewhere classified 01/01/20 06 12/03/2016 ASA CLASS III 12/31/2005 12/03/2016 Benign neoplasm of colon 09/09/200507/2017 History of malignant neoplas m of large intestine 09/09/2005 12/03/2016 Personal history of colonic polyps 09/09/2005 12/03/2016 documented as of this encounter (statuses as of 04/04/2023) [facility] History of Past illness Narrative* Problem Noted Date Diagnosed Date Resolved Date Urinary urgency 03/08/2015 12/03/2016 Frequency of micturition 03/08/201507/2017 Type 2 diabetes mellitus wit h proteinuria or albuminuria 08/16/2014 04/23/2016 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 Endometrial cancer 06/13/2011 2 Malignant neoplasm of cervix uteri, unspecified site 09/07/2007 12/03/2016 Type 2 diabetes mellitus without complication 03/16/20 07 01/10/2016 Malignant neoplasm of cervix uteri 12/31/2005 09/07/2007 Depressive disorder, not elsewhere classified 01/01/20 06 12/03/2016 ASA CLASS III 12/31/2005 12/03/2016 Benign neoplasm of colon 09/09/200507/2017 History of malignant neoplas m of large intestine 09/09/2005 12/03/2016 Personal history of colonic polyps 09/09/2005 12/03/2016 documented as of this encounter (statuses as of 04/15/2023) [facility] History of Past illness Narrative* Problem Noted Date Diagnosed Date Resolved Date Urinary urgency 03/08/2015 12/03/2016 Frequency of micturition 03/08/201507/2017 Type 2 diabetes mellitus wit h proteinuria or albuminuria 08/16/2014 04/23/2016 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 Endometrial cancer 06/13/2011 2 Malignant neoplasm of cervix uteri, unspecified site 09/07/2007 12/03/2016 Type 2 diabetes mellitus without complication 03/16/20 07 01/10/2016 Malignant neoplasm of cervix uteri 12/31/2005 09/07/2007 Depressive disorder, not elsewhere classified 01/01/20 06 12/03/2016 ASA CLASS III 12/31/2005 12/03/2016 Benign neoplasm of colon 09/09/200507/2017 History of malignant neoplas m of large intestine 09/09/2005 12/03/2016 Personal history of colonic polyps 09/09/2005 12/03/2016 documented as of this encounter (statuses as of 05/11/2023) [facility] History of Past illness Narrative* Problem Noted Date Diagnosed Date Resolved Date Urinary urgency 03/08/2015 12/03/2016 Frequency of micturition 03/08/201507/2017 Type 2 diabetes mellitus wit h proteinuria or albuminuria 08/16/2014 04/23/2016 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 Endometrial cancer 06/13/2011 2 Malignant neoplasm of cervix uteri, unspecified site 09/07/2007 12/03/2016 Type 2 diabetes mellitus without complication 03/16/20 07 01/10/2016 Malignant neoplasm of cervix uteri 12/31/2005 09/07/2007 Depressive disorder, not elsewhere classified 01/01/20 06 12/03/2016 ASA CLASS III 12/31/2005 12/03/2016 Benign neoplasm of colon 09/09/200507/2017 History of malignant neoplas m of large intestine 09/09/2005 12/03/2016 Personal history of colonic polyps 09/09/2005 12/03/2016 documented as of this encounter (statuses as of 05/13/2023) [facility] History of Past illness Narrative* Problem Noted Date Diagnosed Date Resolved Date Urinary urgency 03/08/2015 12/03/2016 Frequency of micturition 03/08/201507/2017 Type 2 diabetes mellitus wit h proteinuria or albuminuria 08/16/2014 04/23/2016 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 Endometrial cancer 06/13/2011 2 Malignant neoplasm of cervix uteri, unspecified site 09/07/2007 12/03/2016 Type 2 diabetes mellitus without complication 03/16/20 07 01/10/2016 Malignant neoplasm of cervix uteri 12/31/2005 09/07/2007 Depressive disorder, not elsewhere classified 01/01/20 06 12/03/2016 ASA CLASS III 12/31/2005 12/03/2016 Benign neoplasm of colon 09/09/200507/2017 History of malignant neoplas m of large intestine 09/09/2005 12/03/2016 Personal history of colonic polyps 09/09/2005 12/03/2016 documented as of this encounter (statuses as of 06/28/2023) [facility] History of Past illness Narrative* Problem Noted Date Diagnosed Date Resolved Date Urinary urgency 03/08/2015 12/03/2016 Frequency of micturition 03/08/201507/2017 Type 2 diabetes mellitus wit h proteinuria or albuminuria 08/16/2014 04/23/2016 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 Endometrial cancer 06/13/2011 2 Malignant neoplasm of cervix uteri, unspecified site 09/07/2007 12/03/2016 Type 2 diabetes mellitus without complication 03/16/20 07 01/10/2016 Malignant neoplasm of cervix uteri 12/31/2005 09/07/2007 Depressive disorder, not elsewhere classified 01/01/20 06 12/03/2016 ASA CLASS III 12/31/2005 12/03/2016 Benign neoplasm of colon 09/09/200507/2017 History of malignant neoplas m of large intestine 09/09/2005 12/03/2016 Personal history of colonic polyps 09/09/2005 12/03/2016 documented as of this encounter (statuses as of 06/28/2023) [facility] History of Past illness Narrative* Problem Noted Date Diagnosed Date Resolved Date Urinary urgency 03/08/2015 12/03/2016 Frequency of micturition 03/08/201507/2017 Type 2 diabetes mellitus wit h proteinuria or albuminuria 08/16/2014 04/23/2016 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 Endometrial cancer 06/13/2011 2 Malignant neoplasm of cervix uteri, unspecified site 09/07/2007 12/03/2016 Type 2 diabetes mellitus without complication 03/16/20 07 01/10/2016 Malignant neoplasm of cervix uteri 12/31/2005 09/07/2007 Depressive disorder, not elsewhere classified 01/01/20 06 12/03/2016 ASA CLASS III 12/31/2005 12/03/2016 Benign neoplasm of colon 09/09/200507/2017 History of malignant neoplas m of large intestine 09/09/2005 12/03/2016 Personal history of colonic polyps 09/09/2005 12/03/2016 documented as of this encounter (statuses as of 10/06/2023) [facility] History of Past illness Narrative* Problem Noted Date Diagnosed Date Resolved Date Urinary urgency 03/08/2015 12/03/2016 Frequency of micturition 03/08/201507/2017 Type 2 diabetes mellitus wit h proteinuria or albuminuria 08/16/2014 04/23/2016 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 Endometrial cancer 06/13/2011 2 Malignant neoplasm of cervix uteri, unspecified site 09/07/2007 12/03/2016 Type 2 diabetes mellitus without complication 03/16/20 07 01/10/2016 Malignant neoplasm of cervix uteri 12/31/2005 09/07/2007 Depressive disorder, not elsewhere classified 01/01/20 06 12/03/2016 ASA CLASS III 12/31/2005 12/03/2016 Benign neoplasm of colon 09/09/200507/2017 History of malignant neoplas m of large intestine 09/09/2005 12/03/2016 Personal history of colonic polyps 09/09/2005 12/03/2016 documented as of this encounter (statuses as of 10/09/2023) [facility] History of Past illness Narrative* Problem Noted Date Diagnosed Date Resolved Date Urinary urgency 03/08/2015 12/03/2016 Frequency of micturition 03/08/201507/2017 Type 2 diabetes mellitus wit h proteinuria or albuminuria 08/16/2014 04/23/2016 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 Endometrial cancer 06/13/2011 2 Malignant neoplasm of cervix uteri, unspecified site 09/07/2007 12/03/2016 Type 2 diabetes mellitus without complication 03/16/20 07 01/10/2016 Malignant neoplasm of cervix uteri 12/31/2005 09/07/2007 Depressive disorder, not elsewhere classified 01/01/20 06 12/03/2016 ASA CLASS III 12/31/2005 12/03/2016 Benign neoplasm of colon 09/09/200507/2017 History of malignant neoplas m of large intestine 09/09/2005 12/03/2016 Personal history of colonic polyps 09/09/2005 12/03/2016 documented as of this encounter (statuses as of 10/15/2023) [facility] History of Past illness Narrative* Problem Noted Date Diagnosed Date Resolved Date Urinary urgency 03/08/2015 12/03/2016 Frequency of micturition 03/08/201507/2017 Type 2 diabetes mellitus wit h proteinuria or albuminuria 08/16/2014 04/23/2016 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 Endometrial cancer 06/13/2011 2 Malignant neoplasm of cervix uteri, unspecified site 09/07/2007 12/03/2016 Type 2 diabetes mellitus without complication 03/16/20 07 01/10/2016 Malignant neoplasm of cervix uteri 12/31/2005 09/07/2007 Depressive disorder, not elsewhere classified 01/01/20 06 12/03/2016 ASA CLASS III 12/31/2005 12/03/2016 Benign neoplasm of colon 09/09/200507/2017 History of malignant neoplas m of large intestine 09/09/2005 12/03/2016 Personal history of colonic polyps 09/09/2005 12/03/2016 documented as of this encounter (statuses as of 10/17/2023) [facility] History of Past illness Narrative* Problem Noted Date Diagnosed Date Resolved Date Urinary urgency 03/08/2015 12/03/2016 Frequency of micturition 03/08/201507/2017 Type 2 diabetes mellitus wit h proteinuria or albuminuria 08/16/2014 04/23/2016 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 Endometrial cancer 06/13/2011 2 Malignant neoplasm of cervix uteri, unspecified site 09/07/2007 12/03/2016 Type 2 diabetes mellitus without complication 03/16/20 07 01/10/2016 Malignant neoplasm of cervix uteri 12/31/2005 09/07/2007 Depressive disorder, not elsewhere classified 01/01/20 06 12/03/2016 ASA CLASS III 12/31/2005 12/03/2016 Benign neoplasm of colon 09/09/200507/2017 History of malignant neoplas m of large intestine 09/09/2005 12/03/2016 Personal history of colonic polyps 09/09/2005 12/03/2016 documented as of this encounter (statuses as of 11/04/2023) [facility] History of Past illness Narrative* Problem Noted Date Diagnosed Date Resolved Date Urinary urgency 03/08/2015 12/03/2016 Frequency of micturition 03/08/201507/2017 Type 2 diabetes mellitus wit h proteinuria or albuminuria 08/16/2014 04/23/2016 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 Endometrial cancer 06/13/2011 2 Malignant neoplasm of cervix uteri, unspecified site 09/07/2007 12/03/2016 Type 2 diabetes mellitus without complication 03/16/20 07 01/10/2016 Malignant neoplasm of cervix uteri 12/31/2005 09/07/2007 Depressive disorder, not elsewhere classified 01/01/20 06 12/03/2016 ASA CLASS III 12/31/2005 12/03/2016 Benign neoplasm of colon 09/09/200507/2017 History of malignant neoplas m of large intestine 09/09/2005 12/03/2016 Personal history of colonic polyps 09/09/2005 12/03/2016 documented as of this encounter (statuses as of 11/27/2023) [facility] History of Past illness Narrative* Problem Noted Date Diagnosed Date Resolved Date Urinary urgency 03/08/2015 12/03/2016 Frequency of micturition 03/08/201507/2017 Type 2 diabetes mellitus wit h proteinuria or albuminuria 08/16/2014 04/23/2016 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 Endometrial cancer 06/13/2011 2 Malignant neoplasm of cervix uteri, unspecified site 09/07/2007 12/03/2016 Type 2 diabetes mellitus without complication 03/16/20 07 01/10/2016 Malignant neoplasm of cervix uteri 12/31/2005 09/07/2007 Depressive disorder, not elsewhere classified 01/01/20 06 12/03/2016 ASA CLASS III 12/31/2005 12/03/2016 Benign neoplasm of colon 09/09/200507/2017 History of malignant neoplas m of large intestine 09/09/2005 12/03/2016 Personal history of colonic polyps 09/09/2005 12/03/2016 documented as of this encounter (statuses as of 10/24/2023) [facility] History of Past illness Narrative* Problem Noted Date Diagnosed Date Resolved Date Urinary urgency 03/08/2015 12/03/2016 Frequency of micturition 03/08/201507/2017 Type 2 diabetes mellitus wit h proteinuria or albuminuria 08/16/2014 04/23/2016 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 Endometrial cancer 06/13/2011 2 Malignant neoplasm of cervix uteri, unspecified site 09/07/2007 12/03/2016 Type 2 diabetes mellitus without complication 03/16/20 07 01/10/2016 Malignant neoplasm of cervix uteri 12/31/2005 09/07/2007 Depressive disorder, not elsewhere classified 01/01/20 06 12/03/2016 ASA CLASS III 12/31/2005 12/03/2016 Benign neoplasm of colon 09/09/200507/2017 History of malignant neoplas m of large intestine 09/09/2005 12/03/2016 Personal history of colonic polyps 09/09/2005 12/03/2016 documented as of this encounter (statuses as of 11/27/2023) [facility] note* Diagnosis Encounter for screening colonoscopy- Primary Special screening for malignant neoplasms, colon [facility] Diagnosis History of cervical cancer- Primary Personal history of malignant neoplasm of cervix uteri History of colon cancer Personal history of malignant neoplasm of large intestine History of uterine cancer Personal history of malignant neoplasm of other parts of uterus Vesicovaginal fistula Urinary-genital tract fistula, female [facility] Diagnosis Change in bowel habits Other symptoms involving digestive system Hx of colon cancer, stage I Personal history of malignant neoplasm of large intestine [facility] Diagnosis Diabetic polyneuropathy associated with type 2 diabetes mellitus (HCC) [facility]* Diagnosis Recurrent major depression in partial remission (HCC) Major depressive disorder, recurrent episode, in partial or unspecified remission Diabetic polyneuropathy associated with type 2 diabetes mellitus (HCC) [facility] Diagnosis Mixed hyperlipidemia- Primary Hypothyroidism, unspecified type Diabetic polyneuropathy associated with type 2 diabetes mellitus (HCC) [facility]* Diagnosis Recurrent major depression in partial remission (HCC) Major depressive disorder, recurrent episode, in partial or unspecified remission [facility] Diagnosis Onset Date Resolution Status Acute chest wall pain acute Multiple fractures of ribs, right side, initial encounter for closed fracture acute [facility] Work Phone: Evaluation note* Diagnosis Perineal rash in female Rash and other nonspecific skin eruption [facility] Diagnosis Albuminuria Proteinuria Diabetic polyneuropathy associated with type 2 diabetes mellitus (HCC) [facility] Diagnosis Albuminuria Proteinuria Diabetic polyneuropathy associated with type 2 diabetes mellitus (HCC) [facility] Pressure injury of skin of buttock, unspecified injury stage, unspecified laterality- Primary [facility] Diagnosis Pain in joint of right hip Pain in joint, pelvic region and thigh [facility] Diagnosis Pain in joint of right hip- Primary Pain in joint, pelvic region and thigh [facility] Diagnosis Pain in joint of right hip- Primary Pain in joint, pelvic region and thigh [facility] Albuminuria Proteinuria [facility] Albuminuria Proteinuria [facility] Diagnosis Diabetic polyneuropathy associated with type 2 diabetes mellitus (HCC)- Primary Mixed hyperlipidemia Hypothyroidism, unspecified type [facility] Diagnosis Ectatic thoracic aorta (HCC)- Primary Thoracic aortic ectasia Idiopathic dilatation of pulmonary artery (HCC) Mixed hyperlipidemia Hypertriglyceridemia Pure hyperglyceridemia Type 2 diabetes mellitus without complication, without long-term current use of insulin (HCC) Diabetic polyneuropathy associated with type 2 diabetes mellitus (HCC) Albuminuria Proteinuria Hypothyroidism, unspecified type Obesity, Class III, BMI >= 40 (morbid obesity) E66.01 Morbid obesity S/P hysterectomy with oophorectomy Acquired absence of both cervix and uterus Endometrial cancer (HCC) Malignant neoplasm of corpus uteri, except isthmus History of cervical cancer Personal history of malignant neoplasm of cervix uteri History of colon cancer Personal history of malignant neoplasm of large intestine Mixed incontinence Mixed incontinence urge and stress (male)(female) Recurrent major depression in partial remission (HCC) Major depressive disorder, recurrent episode, in partial or unspecified remission Vitamin D deficiency Unspecified vitamin D deficiency Intrinsic eczema [facility] Diagnosis Recurrent major depression in partial remission (HCC) Major depressive disorder, recurrent episode, in partial or unspecified remission [facility] Diagnosis Albuminuria Proteinuria [facility] Diagnosis Type 2 diabetes mellitus without complication, without long-term current use of insulin (HCC) Diabetic polyneuropathy associated with type 2 diabetes mellitus (HCC) [facility] Diagnosis Encounter for screening mammogram for breast cancer [facility] Diagnosis Asymptomatic postmenopausal state [facility] Diagnosis Encounter for immunization- Primary Need for other specified prophylactic vaccination against single bacterial disease Encounter for screening mammogram for breast cancer Ectatic thoracic aorta (HCC) Thoracic aortic ectasia Idiopathic dilatation of pulmonary artery (HCC) Screening for colon cancer Special screening for malignant neoplasms, colon Type 2 diabetes mellitus without complication, without long-term current use of insulin (HCC) Neurogenic bladder Neurogenic bladder, NOS Acute midline low back pain without sciatica Abnormal circadian rhythm Circadian rhythm sleep disorder, unspecified History of colon cancer, stage I Personal history of malignant neoplasm of large intestine Recurrent major depression in partial remission (HCC) Major depressive disorder, recurrent episode, in partial or unspecified remission Vitamin D deficiency Unspecified vitamin D deficiency Intrinsic eczema [facility]* Diagnosis Encounter for screening mammogram for breast cancer documented in this encounter [facility] note* Diagnosis Albuminuria- Primary Proteinuria Ectatic thoracic aorta (HCC) Thoracic aortic ectasia [facility] Diagnosis Recurrent major depression in partial remission (HCC) Major depressive disorder, recurrent episode, in partial or unspecified remission documented in this encounter [facility] note* Diagnosis Type 2 diabetes mellitus without complication, without long-term current use of insulin (HCC)- Primary Skin lesion Unspecified disorder of skin and subcutaneous tissue Endometrial cancer (HCC) Malignant neoplasm of corpus uteri, except isthmus History of cervical cancer Personal history of malignant neoplasm of cervix uteri Mixed hyperlipidemia Recurrent major depression in partial remission (HCC) Major depressive disorder, recurrent episode, in partial or unspecified remission Hypothyroidism, unspecified type [facility] Diagnosis Recurrent major depression in partial remission (HCC) Major depressive disorder, recurrent episode, in partial or unspecified remission [facility]* Diagnosis Encounter for gynecological examination (general) (routine) without abnormal findings- Primary Endometrial cancer (HCC) Malignant neoplasm of corpus uteri, except isthmus History of cervical cancer Personal history of malignant neoplasm of cervix uteri Encounter for screening mammogram for breast cancer Screening for vaginal cancer Special screening for malignant neoplasms, vagina Encounter for screening for human papillomavirus (HPV) Special screening examination for human papillomavirus (HPV) documented in this encounter [facility] note* Diagnosis Cough documented in this encounter [facility] note* Diagnosis Recurrent major depression in partial remission (HCC) Major depressive disorder, recurrent episode, in partial or unspecified remission documented in this encounter [facility] note* Diagnosis Recurrent major depression in partial remission (HCC) Major depressive disorder, recurrent episode, in partial or unspecified remission documented in this encounter [facility] note* Diagnosis Type 2 diabetes mellitus without complication, without long-term current use of insulin (HCC)- Primary Change in bowel habits Other symptoms involving digestive system Encounter for immunization Need for other specified prophylactic vaccination against single bacterial disease Hypothyroidism, unspecified type Mixed hyperlipidemia Lightheadedness Dizziness and giddiness Recurrent major depression in partial remission (HCC) Major depressive disorder, recurrent episode, in partial or unspecified remission documented in this encounter [facility] note* Diagnosis Severe sepsis (HCC)- Primary Atrial fibrillation with RVR ([facility]) Atrial fibrillation Right ureteral calculus Calculus of ureter Renal atrophy, left Renal sclerosis, unspecified Vesicovaginal fistula Urinary-genital tract fistula, female CHAPITO (acute kidney injury) (HCC) Acute kidney failure, unspecified Acute UTI Urinary tract infection, site not specified Obesity, Class II, BMI 35-39.9 Obesity, unspecified Atrial fibrillation with RVR ([facility]) Atrial fibrillation Hypertension Unspecified essential hypertension Encounter for medical assessment- Primary documented in this encounter [facility] note* Diagnosis Severe sepsis (HCC)- Primary Atrial fibrillation with RVR ([facility]) Atrial fibrillation Right ureteral calculus Calculus of ureter Renal atrophy, left Renal sclerosis, unspecified Vesicovaginal fistula Urinary-genital tract fistula, female CHAPITO (acute kidney injury) (HCC) Acute kidney failure, unspecified Acute UTI Urinary tract infection, site not specified Obesity, Class II, BMI 35-39.9 Obesity, unspecified Atrial fibrillation with RVR (HCC) Atrial fibrillation Hypertension Unspecified essential hypertension Right ureteral calculus- Primary Calculus of ureter documented in this encounter [facility] note* Diagnosis Severe sepsis (HCC)- Primary Atrial fibrillation with RVR (HCC) Atrial fibrillation Right ureteral calculus Calculus of ureter Renal atrophy, left Renal sclerosis, unspecified Vesicovaginal fistula Urinary-genital tract fistula, female CHAPITO (acute kidney injury) (HCC) Acute kidney failure, unspecified Acute UTI Urinary tract infection, site not specified Obesity, Class II, BMI 35-39.9 Obesity, unspecified Atrial fibrillation with RVR (HCC) Atrial fibrillation Hypertension Unspecified essential hypertension Severe sepsis (HCC)- Primary Malignant neoplasm of colon, unspecified part of colon (HCC) Idiopathic dilatation of pulmonary artery (HCC) Atrial fibrillation with RVR (HCC) Atrial fibrillation Obesity, Class III, BMI 40-49.9 (morbid obesity) (HCC) Morbid obesity Diabetic polyneuropathy associated with type 2 diabetes mellitus (HCC) Kidney stone on left side Calculus of kidney Right ureteral calculus Calculus of ureter Primary hypertension Unspecified essential hypertension documented in this encounter [facility] note* Diagnosis Severe sepsis (HCC)- Primary Atrial fibrillation with RVR (HCC) Atrial fibrillation Right ureteral calculus Calculus of ureter Renal atrophy, left Renal sclerosis, unspecified Vesicovaginal fistula Urinary-genital tract fistula, female CHAPITO (acute kidney injury) Acute kidney failure, unspecified Acute UTI Urinary tract infection, site not specified Obesity, Class II, BMI 35-39.9 Obesity, unspecified Atrial fibrillation with RVR (HCC) Atrial fibrillation Hypertension Unspecified essential hypertension Dysuria- Primary Ureteral stone Calculus of ureter documented in this encounter [facility] note* Diagnosis Severe sepsis (HCC)- Primary Atrial fibrillation with RVR (HCC) Atrial fibrillation Right ureteral calculus Calculus of ureter Renal atrophy, left Renal sclerosis, unspecified Vesicovaginal fistula Urinary-genital tract fistula, female CHAPITO (acute kidney injury) Acute kidney failure, unspecified Acute UTI Urinary tract infection, site not specified Obesity, Class II, BMI 35-39.9 Obesity, unspecified Atrial fibrillation with RVR (HCC) Atrial fibrillation Hypertension Unspecified essential hypertension Personal history of colon cancer- Primary Personal history of malignant neoplasm of large intestine Ureteral stone Calculus of ureter documented in this encounter [facility] note* Diagnosis Severe sepsis (HCC)- Primary Atrial fibrillation with RVR (HCC) Atrial fibrillation Renal atrophy, left Renal sclerosis, unspecified Vesicovaginal fistula Urinary-genital tract fistula, female CHAPITO (acute kidney injury) Acute kidney failure, unspecified Acute UTI Urinary tract infection, site not specified Obesity, Class II, BMI 35-39.9 Obesity, unspecified Atrial fibrillation with RVR (HCC) Atrial fibrillation Hypertension Unspecified essential hypertension Ureteral stone- Primary Calculus of ureter Ureteral stone Calculus of ureter documented in this encounter [facility] note* Diagnosis Severe sepsis (HCC)- Primary Atrial fibrillation with RVR (HCC) Atrial fibrillation Renal atrophy, left Renal sclerosis, unspecified Vesicovaginal fistula Urinary-genital tract fistula, female CHAPITO (acute kidney injury) Acute kidney failure, unspecified Acute UTI Urinary tract infection, site not specified Obesity, Class II, BMI 35-39.9 Obesity, unspecified Atrial fibrillation with RVR (HCC) Atrial fibrillation Hypertension Unspecified essential hypertension Right ureteral calculus- Primary Calculus of ureter Diabetic polyneuropathy associated with type 2 diabetes mellitus (HCC) Atrial fibrillation with RVR (HCC) Atrial fibrillation Kidney stone on left side Calculus of kidney Ureteral stone Calculus of ureter documented in this encounter [facility] note* Diagnosis Severe sepsis (HCC)- Primary Atrial fibrillation with RVR (HCC) Atrial fibrillation Renal atrophy, left Renal sclerosis, unspecified Vesicovaginal fistula Urinary-genital tract fistula, female CHAPITO (acute kidney injury) Acute kidney failure, unspecified Acute UTI Urinary tract infection, site not specified Obesity, Class II, BMI 35-39.9 Obesity, unspecified Atrial fibrillation with RVR (HCC) Atrial fibrillation Hypertension Unspecified essential hypertension Personal history of colon cancer- Primary Personal history of malignant neoplasm of large intestine Vesicovaginal fistula- Primary Urinary-genital tract fistula, female Right ureteral calculus Calculus of ureter documented in this encounter [facility] note* Diagnosis Severe sepsis (HCC)- Primary Atrial fibrillation with RVR (HCC) Atrial fibrillation Renal atrophy, left Renal sclerosis, unspecified Vesicovaginal fistula Urinary-genital tract fistula, female CHAPITO (acute kidney injury) Acute kidney failure, unspecified Acute UTI Urinary tract infection, site not specified Obesity, Class II, BMI 35-39.9 Obesity, unspecified Atrial fibrillation with RVR (HCC) Atrial fibrillation Hypertension Unspecified essential hypertension Vesicovaginal fistula- Primary Urinary-genital tract fistula, female Right ureteral calculus Calculus of ureter * Assessment & Plan Note - Dimitris Robles APRN.[employer] - 01/26/2025 3:08 PM EDT Associated Problem(s): Right ureteral calculus - Right Nephrostogram/ removal of right PNT 12/22/2024. Stone analysis calcium oxalate - Area where nephrostomy tube is healed without signs of infection, fluid accumulation, or abscess - Overall is doing well today. She denies symptoms of stone passage. - Order placed for KUB and ultrasound - Discussed stone prevention including dietary modification. If significant stone formation recommend obtaining 24-hour [facility]. * Assessment & Plan Note - Dimitris Robles APRN.CNP - 01/26/2025 3:08 PM EDT Associated Problem(s): Vesicovaginal fistula - Previously discussed with Dr. Howell(01/2021). At that time urinary diversion was discussed to which patient opted not to proceed with. - Occurred after hysterectomy in 2011. - She does use overnight briefs and pads. [facility] Diagnosis Severe sepsis (HCC)- Primary Atrial fibrillation with RVR (HCC) Atrial fibrillation Renal atrophy, left Renal sclerosis, unspecified Vesicovaginal fistula Urinary-genital tract fistula, female CHAPITO (acute kidney injury) Acute kidney failure, unspecified Acute UTI Urinary tract infection, site not specified Obesity, Class II, BMI 35-39.9 Obesity, unspecified Atrial fibrillation with RVR (HCC) Atrial fibrillation Hypertension Unspecified essential hypertension Vesicovaginal fistula- Primary Urinary-genital tract fistula, female Right ureteral calculus Calculus of ureter Encounter for screening mammogram for breast cancer documented in this encounter [facility] note* Diagnosis Severe sepsis (HCC)- Primary Atrial fibrillation with RVR (HCC) Atrial fibrillation Renal atrophy, left Renal sclerosis, unspecified Vesicovaginal fistula Urinary-genital tract fistula, female CHAPITO (acute kidney injury) Acute kidney failure, unspecified Acute UTI Urinary tract infection, site not specified Obesity, Class II, BMI 35-39.9 Obesity, unspecified Atrial fibrillation with RVR (HCC) Atrial fibrillation Hypertension Unspecified essential hypertension Vesicovaginal fistula- Primary Urinary-genital tract fistula, female Right ureteral calculus Calculus of ureter Recurrent major depression in partial remission Major depressive disorder, recurrent episode, in partial or unspecified remission documented in this encounter [facility] note* Diagnosis Severe sepsis (HCC)- Primary Atrial fibrillation with RVR (HCC) Atrial fibrillation Renal atrophy, left Renal sclerosis, unspecified Vesicovaginal fistula Urinary-genital tract fistula, female CHAPITO (acute kidney injury) Acute kidney failure, unspecified Acute UTI Urinary tract infection, site not specified Obesity, Class II, BMI 35-39.9 Obesity, unspecified Atrial fibrillation with RVR (HCC) Atrial fibrillation Hypertension Unspecified essential hypertension Vesicovaginal fistula- Primary Urinary-genital tract fistula, female Right ureteral calculus Calculus of ureter Other symptoms and signs involving the nervous system- Primary Visual hallucination Psychophysical visual disturbances Sleep disorder Sleep disturbance, unspecified Encounter for screening examination for other mental health and behavioral disorders Recurrent major depression in partial remission Major depressive disorder, recurrent episode, in partial or unspecified remission Atrial fibrillation with RVR (HCC) Atrial fibrillation Primary hypertension Unspecified essential hypertension Idiopathic dilatation of pulmonary artery (HCC) Malignant neoplasm of colon, unspecified part of colon (HCC) Type 2 diabetes mellitus without complication, without long-term current use of insulin (HCC) Hypertriglyceridemia Pure hyperglyceridemia Endometrial cancer (HCC) Malignant neoplasm of corpus uteri, except isthmus Hypothyroidism, unspecified type Vitamin D deficiency Unspecified vitamin D deficiency documented in this encounter [facility] note* Diagnosis Severe sepsis (HCC)- Primary Atrial fibrillation with RVR (HCC) Atrial fibrillation Renal atrophy, left Renal sclerosis, unspecified Vesicovaginal fistula Urinary-genital tract fistula, female CHAPITO (acute kidney injury) Acute kidney failure, unspecified Acute UTI Urinary tract infection, site not specified Obesity, Class II, BMI 35-39.9 Obesity, unspecified Atrial fibrillation with RVR (HCC) Atrial fibrillation Hypertension Unspecified essential hypertension Vesicovaginal fistula- Primary Urinary-genital tract fistula, female Right ureteral calculus Calculus of ureter Other symptoms and signs involving the nervous system Visual hallucination Psychophysical visual disturbances Malignant neoplasm of colon, unspecified part of colon (HCC) documented in this encounter [facility] note* Diagnosis Severe sepsis (HCC)- Primary Atrial fibrillation with RVR (HCC) Atrial fibrillation Renal atrophy, left Renal sclerosis, unspecified Vesicovaginal fistula Urinary-genital tract fistula, female CHAPITO (acute kidney injury) Acute kidney failure, unspecified Acute UTI Urinary tract infection, site not specified Obesity, Class II, BMI 35-39.9 Obesity, unspecified Atrial fibrillation with RVR ([facility]) Atrial fibrillation Hypertension Unspecified essential hypertension Vesicovaginal fistula- Primary Urinary-genital tract fistula, female Right ureteral calculus Calculus of ureter Unspecified sleep apnea- Primary Visual hallucination Psychophysical visual disturbances Restless legs syndrome Restless legs syndrome (RLS) Type 2 diabetes mellitus without complication, unspecified whether rodent exterminator insulin use ([facility]) BMI 40.0-44.9, adult ([facility]) Body Mass Index 40.0-44.9, adult Sleep initiation disorder Insomnia, unspecified documented in this encounter [facility] note* Diagnosis Severe sepsis (HCC)- Primary Atrial fibrillation with RVR ([facility]) Atrial fibrillation Renal atrophy, left Renal sclerosis, unspecified Vesicovaginal fistula Urinary-genital tract fistula, female CHAPITO (acute kidney injury) Acute kidney failure, unspecified Acute UTI Urinary tract infection, site not specified Obesity, Class II, BMI 35-39.9 Obesity, unspecified Atrial fibrillation with RVR ([facility]) Atrial fibrillation Hypertension Unspecified essential hypertension Vesicovaginal fistula- Primary Urinary-genital tract fistula, female Right ureteral calculus Calculus of ureter Visual hallucination- Primary Psychophysical visual disturbances Sleep disorder Sleep disturbance, unspecified Primary hypertension Unspecified essential hypertension Atrial fibrillation with RVR ([facility]) Atrial fibrillation Abnormal MRI Other nonspecific (abnormal) findings on radiological and other examinations of body structure documented in this encounter [facility] note* Diagnosis Severe sepsis (HCC)- Primary Atrial fibrillation with RVR ([facility]) Atrial fibrillation Renal atrophy, left Renal sclerosis, unspecified Vesicovaginal fistula Urinary-genital tract fistula, female CHAPITO (acute kidney injury) Acute kidney failure, unspecified Acute UTI Urinary tract infection, site not specified Obesity, Class II, BMI 35-39.9 Obesity, unspecified Atrial fibrillation with RVR ([facility]) Atrial fibrillation Hypertension Unspecified essential hypertension Vesicovaginal fistula- Primary Urinary-genital tract fistula, female Right ureteral calculus Calculus of ureter Personal history of colon cancer Personal history of malignant neoplasm of large intestine documented in this encounter [facility] note* Diagnosis Severe sepsis (HCC)- Primary Atrial fibrillation with RVR ([facility]) Atrial fibrillation Renal atrophy, left Renal sclerosis, unspecified Vesicovaginal fistula Urinary-genital tract fistula, female CHAPITO (acute kidney injury) Acute kidney failure, unspecified Acute UTI Urinary tract infection, site not specified Obesity, Class II, BMI 35-39.9 Obesity, unspecified Atrial fibrillation with RVR (HCC) Atrial fibrillation Hypertension Unspecified essential hypertension Vesicovaginal fistula- Primary Urinary-genital tract fistula, female Right ureteral calculus Calculus of ureter Right ureteral calculus Calculus of ureter documented in this encounter [facility] note* Diagnosis Severe sepsis (HCC)- Primary Atrial fibrillation with RVR (HCC) Atrial fibrillation Renal atrophy, left Renal sclerosis, unspecified Vesicovaginal fistula Urinary-genital tract fistula, female CHAPITO (acute kidney injury) Acute kidney failure, unspecified Acute UTI Urinary tract infection, site not specified Obesity, Class II, BMI 35-39.9 Obesity, unspecified Atrial fibrillation with RVR (HCC) Atrial fibrillation Hypertension Unspecified essential hypertension Vesicovaginal fistula- Primary Urinary-genital tract fistula, female Right ureteral calculus Calculus of ureter Right ureteral calculus Calculus of ureter documented in this encounter [facility] note* Diagnosis Onset Date Resolution Status Admit Date Diabetes mellitus chronic June 07, 2025 1:21pm History of atrial fibrillation chron ic June 07, 2025 1:21pm HTN (hypertension) chronic Octobe r 2024 1:21pm Renal stone chronic June 07, 2025 1:21pm [facility] Work Phone: Patient's home Plan of care note* Visit Details Visit Type -SN SOC Discipline -Custodial Problems Problem Description Start Date Status Goals Interve ntions Medication Education Disciplines: Skilled Services 11/02/2024 Active 1 goal linked to scheduled/documen naun intervention 1 goal intervention scheduled/document ed in this visit Sepsis Disciplines: Skilled Services 11/02/2024 Active 1 goal linked to scheduled/documen naun intervention 1 goal intervention scheduled/document ed in this visit Risk for skin breakdown Disciplines: Skilled Services 11/02/2024 Active 1 goal linked to scheduled/documen naun intervention 1 goal intervention scheduled/document ed in this visit Physician Specific Parameters Disciplines: Skilled Services 11/02/2024 Active 1 goal linked to scheduled/documen naun intervention 1 goal intervention scheduled/document ed in this visit Risk for Falls Disciplines: Skilled Services 11/02/2024 Active 1 goal linked to scheduled/documen naun intervention 1 goal intervention scheduled/document ed in this visit Pain Disciplines: Skilled Services 11/02/2024 Active 1 goal linked to scheduled/documen naun intervention 1 goal intervention scheduled/document ed in this visit Diabetic Foot Care Disciplines: Skilled Services 11/02/2024 Active 1 goal linked to scheduled/documen naun intervention 1 goal intervention scheduled/document ed in this visit Nutrition/Hydration Disciplines: Skilled Services 11/02/2024 Active 1 goal linked to scheduled/documen naun intervention 1 goal intervention scheduled/document ed in this visit High Risk Medications Disciplines: Skilled Services 11/02/2024 Active 1 goal linked to scheduled/documen naun intervention 2 goal interventions scheduled/document ed in this visit SN Integumentary/Wound s Disciplines: SN 11/02/2024 Active 1 goal linked to scheduled/documen naun intervention 2 goal interventions scheduled/document ed in this visit SN Cardiovascular Condition Disciplines: SN 11/02/2024 Active 1 goal linked to scheduled/documen naun intervention 1 goal intervention scheduled/document ed in this visit SN Learning Assessment Disciplines: SN 11/02/2024 Active 1 goal linked to scheduled/documen naun intervention 1 goal intervention scheduled/document ed in this visit SN Genitourinary disease process Disciplines: SN 11/02/2024 Active 1 goal linked to scheduled/documen naun intervention 1 goal intervention scheduled/document ed in this visit Goals Goal Associated Problem Outcome Goal Met? Visit Notes Patient/caregiver will demonstrate ability to obtain, store, identify and administer ordered medications, keep accurate medication list in home, and adhere to medication schedule Description: Patient/caregiver will demonstrate ability to obtain, store, identify and administer ordered medications, keep accurate medication list in home, and adhere to medication schedule by 12/31/24. Medication Education No Patient/caregiver will be able to identify and report symptoms of sepsis Description: Patient/caregiver will be able to identify signs/symptoms of sepsis infection and will verbalize actions to take if suspected by 12/31/24. Sepsis No Manage risk for skin breakdown Description: Patient/caregiver will verbalize and demonstrate understanding of the risks and measures to be taken to monitor and prevent skin breakdown by 12/22/24. Risk for skin breakdown No Patient to maintain parameters within physician-specified ranges throughout certification period Physician Specific Parameters No Manage Risk for falls Description: Patient/caregiver will verbalize knowledge of individualized fall prevention strategies by 12/22/24. Risk for Falls No Manage Pain Description: Patient/caregiver will verbalize knowledge and understanding of appropriate techniques to control pain, including pain medication and non-pharmacological techniques. Patient will verbalize or demonstrate an acceptable level of pain as evidenced by a pain score of 0/10 and improvement in ability to perform activities of daily living to be achieved by 12/31/24. Pain No Manage diabetic foot care Description: Patient/caregiver will demonstrate basic understanding of and compliance with diabetic self-care management as evidenced by verbalizing purpose of daily foot care and assessment by 12/06/24. Diabetic Foot Care No Manage Nutrition/Hydration Description: Patient/caregiver will verbalize/demonstrate knowledge of prescribed diet and/or healthy nutrition to be achieved by 12/06/24. Nutrition/Hydration No Patient/caregiver will teach back high risk medication side effect and precaution education Description: STG Patient/caregiver will verbalize understanding of high risk medication side effects and precautions to be achieved by 11/22/24. LTG Patient/caregiver will continue to verbalize understanding of high risk medication side effects and precautions throughout certification period. High Risk Medications No Patient/Caregiver will have improved healing and be free of signs and symptoms of complications Description: Patient/caregiver will verbalize management strategies to promote wound healing & prevent complications as evidenced by improved healing & no complications by 12/31/24. SN Integumentary/Wounds No Improved management of cardiovascular disease Description: Improve patient/caregiver management of cardiac disease as evidenced by patient/caregiver ability to teach back cardiac management strategies by 12/22/24. SN Cardiovascular Condition No Demonstrate understanding of education Description: Patient and/or caregiver will verbalize understanding of educational instruction provided throughout certification period. SN Learning Assessment No Patient/Caregiver will verbalize understanding and demonstrate improved management of genitourinary disease/condition. Description: Patient/Caregiver will state understanding of genitourinary disease/condition and be able to teach back management strategies by 12/16/24. SN Genitourinary disease process No Interventions Intervention Associated Problem/Goal Status Variance Visit Notes Medication Education Description: Evaluate/instruct patient/caregiver on obtaining, storing, identifying and administering ordered medications as well as keeping accurate medication list in the home and adhereing to medication schedule Problem:Medication Education Goal:Patient/caregiver will demonstrate ability to obtain, store, identify and administer ordered medications, keep accurate medication list in home, and adhere to medication schedule Completed Patient and Caregiver instructed on importance of keeping accurate medication list in home, need to take up-to-date medication list to all medical provider appointments and adhering to medication schedule. Sepsis aftercare Description: Patient recenty treated for sepsis related to UTI, kidney stones. Educate on signs/symptoms of recurrent infection and actions to take if suspected. Problem:Sepsis Goal:Patient/caregiver will be able to identify and report symptoms of sepsis Completed Patient and Caregiver instructed on signs/symptoms of recurrent infection including fever >101, tachycardia >90 or higher per their baseline, decreased pulse ox <92% with increased shortness of breath, decreased urine output and significant change in patient condition. Instruct on the risks and measures to be taken to prevent skin breakdown Description: Patient's Osman Score is: 16. A Osman score <= to 18 indicates risk for skin breakdown. Problem:Risk for skin breakdown Goal:Manage risk for skin breakdown Completed patient and caregiver instructed on maintaining skin integrity including: Reducing risk of friction and shear, including use of draw sheet as appropriate, Incontinence care, Inspecting bony prominences and Routine skin care SPO2 Description: Notify Dr. Grady if pulse ox is <92% at rest. Problem:Physician Specific Parameters Goal:Patient to maintain parameters within physician-specified ranges throughout certification period Completed Instruct on individual fall risk factors and strategies to prevent falls and injuries caused by falls. Problem:Risk for Falls Goal:Manage Risk for falls Completed SN: Patient and Caregiver instructed on Eliminating Environmental Hazards: Keep pathways clear, Keep rooms and walkways well lit and Keep frequently used items within reach Incontinence Management: Use incontinence pads/briefs Managing Impaired Functional Mobility: Use assistive device(s): front wheeled walker and Caregiver to provide assist with: Ambulation, Transfers and ADL/IADLs Instruct on pain and instruct on strategies to control pain Problem:Pain Goal:Manage Pain Completed patient and caregiver instructed on techniques to control pain including Non-Pharmacological measures; rest and distraction. Monitor lower extremities for skin lesions and educate on proper foot care Problem:Diabetic Foot Care Goal:Manage diabetic foot care Completed patient and caregiver instructed on diabetic foot care including daily skin inspection, wash/dry feet thoroughly and toenail care. Define patient s appetite/hydration status and implement strategies to improve compliance with prescribed diet and/or healthy nutrition. Problem:Nutrition/Hydr ation Goal:Manage Nutrition/Hydration Completed instructed patient and caregiver on implementing strategies to comply with prescribed diet, healthy nutrition and adequate hydration Hypoglycemic (including insulin)- educated on high risk medication Problem:High Risk Medications Goal:Patient/caregiver will teach back high risk medication side effect and precaution education Completed patient and caregiver educated on taking medication(s) as prescribed by provider. Do not stop medication or skip/alter doses without speaking with your provider. Discuss medication effectiveness or side effect concerns with your provider and home care team. Check blood sugars and keep log as ordered by provider. Monitor for side effects of hypoglycemia such as increased weakness or shaking, moist skin, sweating, fast heartbeat, dizziness, sudden hunger, confusion, pale skin, numbness in mouth or tongue, irritability, nervousness, unsteadiness, nightmares, bad dreams, and restless sleep. Checking your blood sugar routinely and eating a consistent diabetic diet can help regulate blood sugars and reduce side effects. Anticoagulant- educated on high risk medication Problem:High Risk Medications Goal:Patient/caregiver will teach back high risk medication side effect and precaution education Completed patient and caregiver educated on anticoagulant medication Eliquis Take your medication as instructed and at the same time each day. Do not stop medication or alter doses without speaking with your provider. Discuss medication effectiveness or side effect concerns with your provider and home care team. Discuss all medications you are taking, even [id number] medicines, with your provider and pharmacist since many drugs can interact with anticoagulants. Tell anyone providing medical or dental care that you are taking an anticoagulant. DO NOT STOP your medication even for a minor procedure like dental work without first checking with the provider. If you forget to take a dose, DO NOT take a double dose. Take the missed dose as soon as possible on the same day. DO NOT take a double dose the next day to make up for the missed dose. Watch for signs of abnormal or excessive bleeding and bruising (refer to Bleeding Precautions education). Call your health care provider right away if you suspect something is wrong. Wound Care: Perform wound care (2) Description: Wound Care Order: Wound location: Back (L side) Wound type (etiology): Pressure injury Order: Cleanse with soap and water, pat dry, apply foam adhesive bandage Frequency: every other day and PRN Wound care to be completed by caregiver except for scheduled SN wound care visits. Measure wound/incision at least weekly. Okay to substitute comparable products from home care formulary. Problem:SN Integumentary/Wounds Goal:Patient/Caregiver will have improved healing and be free of signs and symptoms of complications Completed Completed by SN. Patient did tolerate well. 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 Measure wound/incision at least weekly. Okay to substitute comparable products from home care formulary. Problem:SN Integumentary/Wounds Goal:Patient/Caregiver will have improved healing and be free of signs and symptoms of complications Completed Completed by patient/caregiver completed independently . Patient did tolerate well. Instruct on cardiovascular disease process and management of condition Description: Patient has following cardiac diagnosis(es): AFIB. Problem:SN Cardiovascular Condition Goal:Improved management of cardiovascular disease Completed patient and caregiver instructed on cardiac disease process, new cardiac medications amiodarone, metoprolol and self monitoring & symptom reporting. Instruct and educate on knowledge deficits Problem:SN Learning Assessment Goal:Demonstrate understanding of education Completed patient and caregiver verbalize and/or demonstrate understanding of nursing education completed today. Education methods include: verbal cues and written instructions. Further education required to improve knowledge and compliance with cardiac disease management, depression/anxiety care management, drain care management, fall prevention/home safety strategies, incision/wound care management, medication management and nutrition. Nephrostomy Tubes: Instruct patient/caregiver on nephrostomy tube care/management Description: Nephrostomy tube location: Right Problem:SN Genitourinary disease process Goal:Patient/Caregiver will verbalize understanding and demonstrate improved management of genitourinary disease/condition. Completed Patient instructed on management of drainage system, s/s of infection and management of complications and how to report to agency/physician. documented in this encounter [facility] Plan of care note* Visit Details Visit Type -SN ROUTINE Discipline -Custodial Problems Problem Description Start Date Status Goals Interve ntions Medication Education Disciplines: Skilled Services 11/02/2024 Active 1 goal linked to scheduled/documen naun intervention 1 goal intervention scheduled/document ed in this visit Sepsis Disciplines: Skilled Services 11/02/2024 Active 1 goal linked to scheduled/documen naun intervention 1 goal intervention scheduled/document ed in this visit Physician Specific Parameters Disciplines: Skilled Services 11/02/2024 Active 1 goal linked to scheduled/documen naun intervention 1 goal intervention scheduled/document ed in this visit Risk for Falls Disciplines: Skilled Services 11/02/2024 Active 1 goal linked to scheduled/documen naun intervention 1 goal intervention scheduled/document ed in this visit High Risk Medications Disciplines: Skilled Services 11/02/2024 Active 1 goal linked to scheduled/documen naun intervention 1 goal intervention scheduled/document ed in this visit SN Integumentary/Wound s Disciplines: SN 11/02/2024 Active 1 goal linked to scheduled/documen naun intervention 2 goal interventions scheduled/document ed in this visit SN Learning Assessment Disciplines: SN 11/02/2024 Active 1 goal linked to scheduled/documen naun intervention 1 goal intervention scheduled/document ed in this visit SN Genitourinary disease process Disciplines: SN 11/02/2024 Active 1 goal linked to scheduled/documen naun intervention 1 goal intervention scheduled/document ed in this visit Goals Goal Associated Problem Outcome Goal Met? Visit Notes Patient/caregiver will demonstrate ability to obtain, store, identify and administer ordered medications, keep accurate medication list in home, and adhere to medication schedule Description: Patient/caregiver will demonstrate ability to obtain, store, identify and administer ordered medications, keep accurate medication list in home, and adhere to medication schedule by 12/31/24. Medication Education No Patient/caregiver will be able to identify and report symptoms of sepsis Description: Patient/caregiver will be able to identify signs/symptoms of sepsis infection and will verbalize actions to take if suspected by 12/31/24. Sepsis No Patient to maintain parameters within physician-specified ranges throughout certification period Physician Specific Parameters No Manage Risk for falls Description: Patient/caregiver will verbalize knowledge of individualized fall prevention strategies by 12/22/24. Risk for Falls No Patient/caregiver will teach back high risk medication side effect and precaution education Description: STG Patient/caregiver will verbalize understanding of high risk medication side effects and precautions to be achieved by 11/22/24. LTG Patient/caregiver will continue to verbalize understanding of high risk medication side effects and precautions throughout certification period. High Risk Medications No Patient/Caregiver will have improved healing and be free of signs and symptoms of complications Description: Patient/caregiver will verbalize management strategies to promote wound healing & prevent complications as evidenced by improved healing & no complications by 12/31/24. SN Integumentary/Wounds No Demonstrate understanding of education Description: Patient and/or caregiver will verbalize understanding of educational instruction provided throughout certification period. SN Learning Assessment No Patient/Caregiver will verbalize understanding and demonstrate improved management of genitourinary disease/condition. Description: Patient/Caregiver will state understanding of genitourinary disease/condition and be able to teach back management strategies by 12/16/24. SN Genitourinary disease process No Interventions Intervention Associated Problem/Goal Status Variance Visit Notes Medication Education Description: Evaluate/instruct patient/caregiver on obtaining, storing, identifying and administering ordered medications as well as keeping accurate medication list in the home and adhereing to medication schedule Problem:Medication Education Goal:Patient/caregive r will demonstrate ability to obtain, store, identify and administer ordered medications, keep accurate medication list in home, and adhere to medication schedule Completed Patient instructed on importance of keeping accurate medication list in home, need to take up-to-date medication list to all medical provider appointments, adhering to medication schedule and proper storage of medications. Sepsis aftercare Description: Patient recenty treated for sepsis related to UTI, kidney stones. Educate on signs/symptoms of recurrent infection and actions to take if suspected. Problem:Sepsis Goal:Patient/caregive r will be able to identify and report symptoms of sepsis Completed Patient instructed on signs/symptoms of recurrent infection including fever >101, hypothermia <96.8, tachycardia >90 or higher per their baseline, tachypnea >20 or higher per their baseline, SBP <90mmHg or 40mmHg change in BP from baseline, decreased pulse ox <92% with increased shortness of breath and increase in 02 requirements. SPO2 Description: Notify Dr. Grady if pulse ox is <92% at rest. Problem:Physician Specific Parameters Goal:Patient to maintain parameters within physician-specified ranges throughout certification period Completed Instruct on individual fall risk factors and strategies to prevent falls and injuries caused by falls. Problem:Risk for Falls Goal:Manage Risk for falls Completed SN: Patient instructed on Eliminating Environmental Hazards: Keep pathways clear, Keep pets out of pathways, Remove unsafe rugs, Move furniture from pathways, Keep rooms and walkways well lit, Install hand rails/grab bars and Wear supportive shoes or non-skid socks Incontinence Management: Bowel/Bladder program Anticoagulant- educated on high risk medication Problem:High Risk Medications Goal:Patient/caregive r will teach back high risk medication side effect and precaution education Completed patient educated on anticoagulant medication eliquis Take your medication as instructed and at the same time each day. Do not stop medication or alter doses without speaking with your provider. Discuss medication effectiveness or side effect concerns with your provider and home care team. Discuss all medications you are taking, even [id number] medicines, with your provider and pharmacist since many drugs can interact with anticoagulants. Tell anyone providing medical or dental care that you are taking an anticoagulant. DO NOT STOP your medication even for a minor procedure like dental work without first checking with the provider. If you forget to take a dose, DO NOT take a double dose. Take the missed dose as soon as possible on the same day. DO NOT take a double dose the next day to make up for the missed dose. Watch for signs of abnormal or excessive bleeding and bruising (refer to Bleeding Precautions education). Call your health care provider right away if you suspect something is wrong. Wound Care: Perform wound care (2) Description: Wound Care Order: Wound location: Back (L side) Wound type (etiology): Pressure injury Order: Cleanse with soap and water, pat dry, apply foam adhesive bandage Frequency: every other day and PRN Wound care to be completed by caregiver except for scheduled SN wound care visits. Measure wound/incision at least weekly. Okay to substitute comparable products from home care formulary. Problem:SN Integumentary/Wounds Goal:Patient/Caregive r will have improved healing and be free of signs and symptoms of complications Completed Completed by SN. Patient did tolerate well. Wound Care: Perform wound care (1) Description: Wound Care Order: Wound location: buttocks Wound type (etiology): Pressure injury Order: cleanse with soap and water, apply barrier ointment, leave AMBERLY Frequency: daily and as needed Wound care to be completed by patient and/or caregiver except for scheduled SN wound care visits . Measure wound/incision at least weekly. Okay to substitute comparable products from home care formulary. Problem:SN Integumentary/Wounds Goal:Patient/Caregive r will have improved healing and be free of signs and symptoms of complications Completed Completed by SN. Patient did tolerate well. Instruct and educate on knowledge deficits Problem:SN Learning Assessment Goal:Demonstrate understanding of education Completed patient verbalize and/or demonstrate understanding of nursing education completed today. Education methods include: verbal cues. Further education required to improve knowledge and compliance with fall prevention/home safety strategies. Nephrostomy Tubes: Instruct patient/caregiver on nephrostomy tube care/management Description: Nephrostomy tube location: Right Problem:SN Genitourinary disease process Goal:Patient/Caregive r will verbalize understanding and demonstrate improved management of genitourinary disease/condition. Completed Patient instructed on flushing. documented in this encounter [facility] Plan of care note* Visit Details Visit Type -PT EVAL Discipline -Physical Therapy Problems Problem Description Start Date Status Goals Interve ntions PT Referral Disciplines: Skilled Services 11/02/2024 Active 1 goal linked to scheduled/documen naun intervention 1 goal intervention scheduled/document ed in this visit Physician Specific Parameters Disciplines: Skilled Services 11/02/2024 Active 1 goal linked to scheduled/documen naun intervention 1 goal intervention scheduled/document ed in this visit Risk for Falls Disciplines: Skilled Services 11/02/2024 Active 1 goal linked to scheduled/documen naun intervention 1 goal intervention scheduled/document ed in this visit PT Learning Assessment Disciplines: PT 11/03/2024 Active 1 goal linked to scheduled/documen naun intervention 1 goal intervention scheduled/document ed in this visit PT Cardiovascular Disease Disciplines: PT 11/03/2024 Active 1 goal linked to scheduled/documen naun intervention 1 goal intervention scheduled/document ed in this visit Goals Goal Associated Problem Outcome Goal Met? Visit Notes Patient will be referred to additional discipline as needed PT Referral No Patient to maintain parameters within physician-specified ranges throughout certification period Physician Specific Parameters No Manage Risk for falls Description: Patient/caregiver will verbalize knowledge of individualized fall prevention strategies by 12/22/24. Risk for Falls No Demonstrate understanding of education Description: Patient and/or caregiver will understand educational instruction to be achieved by 12/03/24. PT Learning Assessment No Manage Secondary Cardiovascular disease Description: Improve patient and/or caregiver understanding of secondary cardiovascular disease management as evidenced by patient and/or caregiver able to verbalize, demonstrate, and teach back instruction, to be achieved by 12/03/24. PT Cardiovascular Disease No Interventions Intervention Associated Problem/Goal Status Variance Visit Notes PT evaluation and treatment Description: Evaluate and treat for the assessment of functional deficits and establishment of appropriate interventions and education, including recommendations for functional mobility training, balance training for fall reduction, and s trengthening. Problem:PT Referral Goal:Patient will be referred to additional discipline as needed Completed SPO2 Description: Notify Dr. Grady if pulse ox is <92% at rest. Problem:Physician Specific Parameters Goal:Patient to maintain parameters within physician-specified ranges throughout certification period Completed Instruct on individual fall risk factors and strategies to prevent falls and injuries caused by falls. Problem:Risk for Falls Goal:Manage Risk for falls Completed PT: Patient instructed on Eliminating Environmental Hazards: Keep pathways clear, Remove unsafe rugs, Move furniture from pathways, Keep rooms and walkways well lit, Install hand rails/grab bars and Wear supportive shoes or non-skid socks Managing Impaired Functional Mobility: Use assistive device(s): front wheeled walker Instruct and educate on knowledge deficits Problem:PT Learning Assessment Goal:Demonstrate understanding of education Completed patient verbalize and/or demonstrate understanding of physical therapy education including cardiac disease management, diabetic care management, fall prevention strategies, home safety and functional activity. Education methods include: verbal cues and written instructions. Further education required to improve knowledge and compliance with fall prevention strategies, home safety, functional activity and home exercise program. Instruct on signs, symptoms, and management of secondary cardiovascular disease Problem:PT Cardiovascular Disease Goal:Manage Secondary Cardiovascular disease Completed Instructed patient on exercise and activity guidelines. documented in this encounter [facility] Plan of care note* Visit Details Visit Type -OT EVAL Discipline -Occupational Therapy Problems Problem Description Start Date Status Goals Interve ntions Medication Education Disciplines: Skilled Services 11/02/2024 Active 1 goal linked to scheduled/documen naun intervention 1 goal intervention scheduled/document ed in this visit OT Referral Disciplines: Skilled Services 11/02/2024 Resolved on 11/04/2024 1 goal linked to scheduled/documen naun intervention 1 goal intervention scheduled/document ed in this visit Physician Specific Parameters Disciplines: Skilled Services 11/02/2024 Active 1 goal linked to scheduled/documen naun intervention 1 goal intervention scheduled/document ed in this visit Risk for Falls Disciplines: Skilled Services 11/02/2024 Active 1 goal linked to scheduled/documen naun intervention 1 goal intervention scheduled/document ed in this visit Pain Disciplines: Skilled Services 11/02/2024 Active 1 goal linked to scheduled/documen naun intervention 1 goal intervention scheduled/document ed in this visit Diabetic Foot Care Disciplines: Skilled Services 11/02/2024 Active 1 goal linked to scheduled/documen naun intervention 1 goal intervention scheduled/document ed in this visit Discharge Disciplines: Skilled Services 11/02/2024 Active 1 goal linked to scheduled/documen naun intervention 1 goal intervention scheduled/document ed in this visit OT Learning Assessment Disciplines: OT 11/04/2024 Active 1 goal linked to scheduled/documen naun intervention 1 goal intervention scheduled/document ed in this visit OT Functional Transfers Disciplines: OT 11/04/2024 Active 1 goal linked to scheduled/documen naun intervention 1 goal intervention scheduled/document ed in this visit Goals Goal Associated Problem Outcome Goal Met? Visit Notes Patient/caregiver will demonstrate ability to obtain, store, identify and administer ordered medications, keep accurate medication list in home, and adhere to medication schedule Description: Patient/caregiver will demonstrate ability to obtain, store, identify and administer ordered medications, keep accurate medication list in home, and adhere to medication schedule by 12/31/24. Medication Education No Patient will be referred to additional discipline as needed OT Referral Completed Yes Patient to maintain parameters within physician-specified ranges throughout certification period Physician Specific Parameters No Manage Risk for falls Description: Patient/caregiver will verbalize knowledge of individualized fall prevention strategies by 12/22/24. Risk for Falls No Manage Pain Description: Patient/caregiver will verbalize knowledge and understanding of appropriate techniques to control pain, including pain medication and non-pharmacological techniques. Patient will verbalize or demonstrate an acceptable level of pain as evidenced by a pain score of 0/10 and improvement in ability to perform activities of daily living to be achieved by 12/31/24. Pain No Manage diabetic foot care Description: Patient/caregiver will demonstrate basic understanding of and compliance with diabetic self-care management as evidenced by verbalizing purpose of daily foot care and assessment by 12/06/24. Diabetic Foot Care No Manage discharge planning Description: Patient/caregiver will verbalize understanding of ongoing discharge plan provided related to disease management, arrangements for outpatient and/or community services, obtaining medications, supplies, and DME, as needed [facility] certification period. Discharge No Demonstrate understanding of education Description: Patient and/or caregiver will understand educational instruction to be achieved by 12/03/24. OT Learning Assessment No Improved Functional Transfers Description: patient will demonstrate safe transfers to/from toilet and shower/tub with independent assistance and no verbal cues with use of DME to be achieved by 12/03/24. OT Functional Transfers No Interventions Intervention Associated Problem/Goal Status Variance Visit Notes Medication Education Description: Evaluate/instruct patient/caregiver on obtaining, storing, identifying and administering ordered medications as well as keeping accurate medication list in the home and adhereing to medication schedule Problem:Medication Education Goal:Patient/caregive r will demonstrate ability to obtain, store, identify and administer ordered medications, keep accurate medication list in home, and adhere to medication schedule Completed Patient instructed on importance of keeping accurate medication list in home and adhering to medication schedule. OT evaluation and treatment Description: Evaluate and treat for the assessment of functional deficits and establishment of appropriate interventions and education to address: functional transfers, DME/adaptive equipment recommendations, safety awareness, energy conservation and home safety and falls prevention recommendations. Problem:OT Referral Goal:Patient will be referred to additional discipline as needed Completed SPO2 Description: Notify Dr. Grady if pulse ox is <92% at rest. Problem:Physician Specific Parameters Goal:Patient to maintain parameters within physician-specified ranges throughout certification period Completed Instruct on individual fall risk factors and strategies to prevent falls and injuries caused by falls. Problem:Risk for Falls Goal:Manage Risk for falls Completed OT: Patient instructed on Eliminating Environmental Hazards: Keep pathways clear, Keep rooms and walkways well lit and Keep frequently used items within reach Instruct on pain and instruct on strategies to control pain Problem:Pain Goal:Manage Pain Completed patient instructed on techniques to control pain including Non-Pharmacological measures; rest and positioning/elevation . Monitor lower extremities for skin lesions and educate on proper foot care Problem:Diabetic Foot Care Goal:Manage diabetic foot care Completed patient instructed on diabetic foot care including daily skin inspection and wearing proper footwear/avoiding going barefoot. Instruct on ongoing discharge plan Problem:Discharge Goal:Manage discharge planning Completed Ongoing Discharge plan: Discharge plan discussed with patient including frequency and duration for home OT and plan for transition to: live independently at home without ongoing services. Instruct and educate on knowledge deficits Problem:OT Learning Assessment Goal:Demonstrate understanding of education Completed Education methods include: verbal cues, tactile cues and visual cues. Patient/Caregiver require further education to improve knowledge and compliance with fall prevention strategies, pain management, home safety, infection control precautions, functional adl/iadl activity, functional transfers, home exercise program and discharge planning. Transfer Training Problem:OT Functional Transfers Goal:Improved Functional Transfers Completed Instruct patient on safe transfers and proper techniques including slow positional changes to perform to and from toilet with SBA and shower/tub with min assist assistance and verbal cues for safety and technique. education and training on the following adaptive equipment/durable medical equipment:grab bar(s). documented in this encounter [facility] Plan of care note* Visit Details Visit Type -FERTILIZER APPLICATOR ROUTINE Discipline -Physical Therapy Problems Problem Description Start Date Status Goals Interve ntions Medication Education Disciplines: Skilled Services 11/02/2024 Active 1 goal linked to scheduled/document ed intervention 1 goal intervention scheduled/document ed in this visit Sepsis Disciplines: Skilled Services 11/02/2024 Active 1 goal linked to scheduled/document ed intervention 1 goal intervention scheduled/document ed in this visit Risk for skin breakdown Disciplines: Skilled Services 11/02/2024 Active 1 goal linked to scheduled/document ed intervention 1 goal intervention scheduled/document ed in this visit Physician Specific Parameters Disciplines: Skilled Services 11/02/2024 Active 1 goal linked to scheduled/document ed intervention 1 goal intervention scheduled/document ed in this visit Risk for Falls Disciplines: Skilled Services 11/02/2024 Active 1 goal linked to scheduled/document ed intervention 1 goal intervention scheduled/document ed in this visit Pain Disciplines: Skilled Services 11/02/2024 Active 1 goal linked to scheduled/document ed intervention 1 goal intervention scheduled/document ed in this visit Diabetic Foot Care Disciplines: Skilled Services 11/02/2024 Active 1 goal linked to scheduled/document ed intervention 1 goal intervention scheduled/document ed in this visit Discharge Disciplines: Skilled Services 11/02/2024 Active 1 goal linked to scheduled/document ed intervention 1 goal intervention scheduled/document ed in this visit PT Impaired muscle performance and/or ROM Disciplines: PT 11/03/2024 Active 1 goal linked to scheduled/document ed intervention 1 goal intervention scheduled/document ed in this visit PT Impaired mobility Disciplines: PT 11/03/2024 Active 1 goal linked to scheduled/document ed intervention 1 goal intervention scheduled/document ed in this visit PT Impaired gait Disciplines: PT 11/03/2024 Active 2 goals linked to scheduled/document ed interventions 2 goal interventions scheduled/document ed in this visit PT Learning Assessment Disciplines: PT 11/03/2024 Active 1 goal linked to scheduled/document ed intervention 1 goal intervention scheduled/document ed in this visit Goals Goal Associated Problem Outcome Goal Met? Visit Notes Patient/caregiver will demonstrate ability to obtain, store, identify and administer ordered medications, keep accurate medication list in home, and adhere to medication schedule Description: Patient/caregiver will demonstrate ability to obtain, store, identify and administer ordered medications, keep accurate medication list in home, and adhere to medication schedule by 12/31/24. Medication Education No Patient/caregiver will be able to identify and report symptoms of sepsis Description: Patient/caregiver will be able to identify signs/symptoms of sepsis infection and will verbalize actions to take if suspected by 12/31/24. Sepsis No Manage risk for skin breakdown Description: Patient/caregiver will verbalize and demonstrate understanding of the risks and measures to be taken to monitor and prevent skin breakdown by 12/22/24. Risk for skin breakdown No Patient to maintain parameters within physician-specified ranges throughout certification period Physician Specific Parameters No Manage Risk for falls Description: Patient/caregiver will verbalize knowledge of individualized fall prevention strategies by 12/22/24. Risk for Falls No Manage Pain Description: Patient/caregiver will verbalize knowledge and understanding of appropriate techniques to control pain, including pain medication and non-pharmacological techniques. Patient will verbalize or demonstrate an acceptable level of pain as evidenced by a pain score of 0/10 and improvement in ability to perform activities of daily living to be achieved by 12/31/24. Pain No Manage diabetic foot care Description: Patient/caregiver will demonstrate basic understanding of and compliance with diabetic self-care management as evidenced by verbalizing purpose of daily foot care and assessment by 12/06/24. Diabetic Foot Care No Manage discharge planning Description: Patient/caregiver will verbalize understanding of ongoing discharge plan provided related to disease management, arrangements for outpatient and/or community services, obtaining medications, supplies, and DME, as [facility]. Discharge No Improved Muscle Performance and/or ROM Description: LTG: Patient will demonstrate improved muscle performance to meet functional goals as evidenced by ability to tolerate 10-15 minutes of therapeutic activity, to be achieved by 12/03/24. . STG: Patient and/or caregiver will verbalize/demonstrate independence with home exercise program, to improve functional mobility, to be achieved by 11/12/24. PT Impaired muscle performance and/or ROM No Improved Transfers Description: LTG: Patient will demonstrate safe transfers to/from bed, chair, couch and car independently with AD, to be achieved by 12/03/24. . PT Impaired mobility No Improved Stair Climbing Description: STG:: Patient will demonstrate improved stair negotiation as evidenced by ascend/descend 2 steps with railing and with cane independently, to be achieved by 11/19/24. PT Impaired gait No Improved Gait Description: STG: Patient will demonstrate improved gait ability as evidenced by ambulation 100 feet with standard walker independently with AD, in order to maneuver throughtou , to be achieved by 11/19/24. LTG: Patient will demonstrate improved gait ability as evidenced by ambulation 125 feet with single point cane independently with AD, to return to safe household and community ambulation, in order to return toward plf , to be achieved by 12/03/24. . PT Impaired gait No Demonstrate understanding of education Description: Patient and/or caregiver will understand educational instruction to be achieved by 12/03/24. PT Learning Assessment No Interventions Intervention Associated Problem/Goal Status Variance Visit Notes Medication Education Description: Evaluate/instruct patient/caregiver on obtaining, storing, identifying and administering ordered medications as well as keeping accurate medication list in the home and adhereing to medication schedule Problem:Medication Education Goal:Patient/caregive r will demonstrate ability to obtain, store, identify and administer ordered medications, keep accurate medication list in home, and adhere to medication schedule Completed Patient instructed on importance of keeping accurate medication list in home and adhering to medication schedule. Sepsis aftercare Description: Patient recenty treated for sepsis related to UTI, kidney stones. Educate on signs/symptoms of recurrent infection and actions to take if suspected. Problem:Sepsis Goal:Patient/caregive r will be able to identify and report symptoms of sepsis Completed Patient instructed on signs/symptoms of recurrent infection including fever >101. Instruct on the risks and measures to be taken to prevent skin breakdown Description: Patient's Osman Score is: 16. A Osman score <= to 18 indicates risk for skin breakdown. Problem:Risk for skin breakdown Goal:Manage risk for skin breakdown Completed patient instructed on maintaining skin integrity including: The need for every 1-2 hour turns, position changes, and maintaining activity as tolerated SPO2 Description: Notify Dr. Grady if pulse ox is <92% at rest. Problem:Physician Specific Parameters Goal:Patient to maintain parameters within physician-specified ranges throughout certification period Completed Instruct on individual fall risk factors and strategies to prevent falls and injuries caused by falls. Problem:Risk for Falls Goal:Manage Risk for falls Completed PT: Patient instructed on Managing Impaired Functional Mobility: Use assistive device(s): front wheeled walker Instruct on pain and instruct on strategies to control pain Problem:Pain Goal:Manage Pain Completed Patient denies pain Monitor lower extremities for skin lesions and educate on proper foot care Problem:Diabetic Foot Care Goal:Manage diabetic foot care Completed patient instructed on diabetic foot care including daily skin inspection and wearing proper footwear/avoiding going barefoot. Instruct on ongoing discharge plan Problem:Discharge Goal:Manage discharge planning Completed Ongoing Discharge plan: Discharge plan discussed with patient including frequency and duration for home PT and plan for transition to: live independently at home without ongoing services. Physical Therapy Therapeutic Exercises Problem:PT Impaired muscle performance and/or ROM Goal:Improved Muscle Performance and/or ROM Completed patient instructed on strengthening exercises including seated faq, hip flexion and add, heel toe raises x's 10 each with verbal, visual and written cues for form. patient instructed to perform home exercise program twice a day which included above ex. Physical Therapy Transfer Training Problem:PT Impaired mobility Goal:Improved Transfers Completed Transfer training and instruction to patient on safe transfers to and from chair with supervision and verbal cues for reaching back for chair prior to sitting Physical Therapy Stair Training Problem:PT Impaired gait Goal:Improved Stair Climbing Completed Stair training and instruction to patient on safe stair climbing, ascend/descend 2 steps, with railing with supervision and verbal cues for safety. Physical Therapy Gait Training Problem:PT Impaired gait Goal:Improved Gait Completed Gait training and instruction to patient on safe ambulation with front wheeled walker for x'70 and x's40 feet with supervision, with verbal cues for corrections of gait deviations including posture and pace. Instruct and educate on knowledge deficits Problem:PT Learning Assessment Goal:Demonstrate understanding of education Completed patient verbalize and/or demonstrate understanding of physical therapy education including home exercise program. Education methods include: verbal cues, written instructions and visual cues. Further education required to improve knowledge and compliance with home exercise program. [facility] Visit Details Visit Type -SN ROUTINE Discipline -Custodial Problems Problem Description Start Date Status Goals Interve ntions Medication Education Disciplines: Skilled Services 11/02/2024 Active 1 goal linked to scheduled/documen naun intervention 1 goal intervention scheduled/document ed in this visit Sepsis Disciplines: Skilled Services 11/02/2024 Active 1 goal linked to scheduled/documen naun intervention 1 goal intervention scheduled/document ed in this visit Risk for skin breakdown Disciplines: Skilled Services 11/02/2024 Active 1 goal linked to scheduled/documen naun intervention 1 goal intervention scheduled/document ed in this visit Physician Specific Parameters Disciplines: Skilled Services 11/02/2024 Active 1 goal linked to scheduled/documen naun intervention 1 goal intervention scheduled/document ed in this visit Risk for Falls Disciplines: Skilled Services 11/02/2024 Active 1 goal linked to scheduled/documen naun intervention 1 goal intervention scheduled/document ed in this visit Diabetic Foot Care Disciplines: Skilled Services 11/02/2024 Active 1 goal linked to scheduled/documen naun intervention 1 goal intervention scheduled/document ed in this visit Nutrition/Hydration Disciplines: Skilled Services 11/02/2024 Active 1 goal linked to scheduled/documen naun intervention 1 goal intervention scheduled/document ed in this visit High Risk Medications Disciplines: Skilled Services 11/02/2024 Active 1 goal linked to scheduled/documen naun intervention 2 goal interventions scheduled/document ed in this visit Discharge Disciplines: Skilled Services 11/02/2024 Active 1 goal linked to scheduled/documen naun intervention 1 goal intervention scheduled/document ed in this visit SN Edema Disciplines: SN 11/02/2024 Active 1 goal linked to scheduled/documen naun intervention 1 goal intervention scheduled/document ed in this visit SN Integumentary/Wound s Disciplines: SN 11/02/2024 Active 1 goal linked to scheduled/documen naun intervention 1 goal intervention scheduled/document ed in this visit SN Cardiovascular Condition Disciplines: SN 11/02/2024 Active 1 goal linked to scheduled/documen naun intervention 1 goal intervention scheduled/document ed in this visit SN Learning Assessment Disciplines: SN 11/02/2024 Active 1 goal linked to scheduled/documen naun intervention 1 goal intervention scheduled/document ed in this visit SN Genitourinary disease process Disciplines: SN 11/02/2024 Active 1 goal linked to scheduled/documen naun intervention 1 goal intervention scheduled/document ed in this visit Goals Goal Associated Problem Outcome Goal Met? Visit Notes Patient/caregiver will demonstrate ability to obtain, store, identify and administer ordered medications, keep accurate medication list in home, and adhere to medication schedule Description: Patient/caregiver will demonstrate ability to obtain, store, identify and administer ordered medications, keep accurate medication list in home, and adhere to medication schedule by 12/31/24. Medication Education No Patient/caregiver will be able to identify and report symptoms of sepsis Description: Patient/caregiver will be able to identify signs/symptoms of sepsis infection and will verbalize actions to take if suspected by 12/31/24. Sepsis No Manage risk for skin breakdown Description: Patient/caregiver will verbalize and demonstrate understanding of the risks and measures to be taken to monitor and prevent skin breakdown by 12/22/24. Risk for skin breakdown No Patient to maintain parameters within physician-specified ranges throughout certification period Physician Specific Parameters No Manage Risk for falls Description: Patient/caregiver will verbalize knowledge of individualized fall prevention strategies by 12/22/24. Risk for Falls No Manage diabetic foot care Description: Patient/caregiver will demonstrate basic understanding of and compliance with diabetic self-care management as evidenced by verbalizing purpose of daily foot care and assessment by 12/06/24. Diabetic Foot Care No Manage Nutrition/Hydration Description: Patient/caregiver will verbalize/demonstrate knowledge of prescribed diet and/or healthy nutrition to be achieved by 12/06/24. Nutrition/Hydration No Patient/caregiver will teach back high risk medication side effect and precaution education Description: STG Patient/caregiver will verbalize understanding of high risk medication side effects and precautions to be achieved by 11/22/24. LTG Patient/caregiver will continue to verbalize understanding of high risk medication side effects and precautions throughout certification period. High Risk Medications No Manage discharge planning Description: Patient/caregiver will verbalize understanding of ongoing discharge plan provided related to disease management, arrangements for outpatient and/or community services, obtaining medications, supplies, and DME, as needed throu ghout certification period. Discharge No Patient will have improved edema management Description: Patient/caregiver will demonstrate an understanding of edema management strategies as evidenced by resolution or stabilization of edema by 12/06/24. SN Edema No Patient/Caregiver will have improved healing and be free of signs and symptoms of complications Description: Patient/caregiver will verbalize management strategies to promote wound healing & prevent complications as evidenced by improved healing & no complications by 12/31/24. SN Integumentary/Wounds No Improved management of cardiovascular disease Description: Improve patient/caregiver management of cardiac disease as evidenced by patient/caregiver ability to teach back cardiac management strategies by 12/22/24. SN Cardiovascular Condition No Demonstrate understanding of education Description: Patient and/or caregiver will verbalize understanding of educational instruction provided throughout certification period. SN Learning Assessment No Patient/Caregiver will verbalize understanding and demonstrate improved management of genitourinary disease/condition. Description: Patient/Caregiver will state understanding of genitourinary disease/condition and be able to teach back management strategies by 12/16/24. SN Genitourinary disease process No Interventions Intervention Associated Problem/Goal Status Variance Visit Notes Medication Education Description: Evaluate/instruct patient/caregiver on obtaining, storing, identifying and administering ordered medications as well as keeping accurate medication list in the home and adhereing to medication schedule Problem:Medication Education Goal:Patient/caregiv er will demonstrate ability to obtain, store, identify and administer ordered medications, keep accurate medication list in home, and adhere to medication schedule Completed Patient instructed on adhering to medication schedule. Sepsis aftercare Description: Patient recenty treated for sepsis related to UTI, kidney stones. Educate on signs/symptoms of recurrent infection and actions to take if suspected. Problem:Sepsis Goal:Patient/caregiv er will be able to identify and report symptoms of sepsis Completed Patient instructed on signs/symptoms of recurrent infection including fever >101, new or worsening onset of pain, decreased urine output, new onset change in mentation status and significant change in patient condition. Instruct on the risks and measures to be taken to prevent skin breakdown Description: Patient's Osman Score is: 16. A Osman score <= to 18 indicates risk for skin breakdown. Problem:Risk for skin breakdown Goal:Manage risk for skin breakdown Completed patient instructed on maintaining skin integrity including: The need for every 1-2 hour turns, position changes, and maintaining activity as tolerated, Reducing risk of friction and shear, including use of draw sheet as appropriate and Routine skin care SPO2 Description: Notify Dr. Grady if pulse ox is <92% at rest. Problem:Physician Specific Parameters Goal:Patient to maintain parameters within physician-specified ranges throughout certification period Completed Instruct on individual fall risk factors and strategies to prevent falls and injuries caused by falls. Problem:Risk for Falls Goal:Manage Risk for falls Completed SN: Patient instructed on Eliminating Environmental Hazards: Keep pathways clear Managing Impaired Functional Mobility: Use assistive device(s): front wheeled walker and Caregiver to provide assist with: Steps Monitor lower extremities for skin lesions and educate on proper foot care Problem:Diabetic Foot Care Goal:Manage diabetic foot care Completed patient instructed on diabetic foot care including wearing proper footwear/avoiding going barefoot. Define patient s appetite/hydration status and implement strategies to improve compliance with prescribed diet and/or healthy nutrition. Problem:Nutrition/Hy dration Goal:Manage Nutrition/Hydration Completed reinforced patient on implementing strategies to comply with prescribed diet, healthy nutrition and adequate hydration Hypoglycemic (including insulin)- educated on high risk medication Problem:High Risk Medications Goal:Patient/caregiv er will teach back high risk medication side effect and precaution education Completed patient educated on taking medication(s) as prescribed by provider. Do not stop medication or skip/alter doses without speaking with your provider. Discuss medication effectiveness or side effect concerns with your provider and home care team. Check blood sugars and keep log as ordered by provider. Monitor for side effects of hypoglycemia such as increased weakness or shaking, moist skin, sweating, fast heartbeat, dizziness, sudden hunger, confusion, pale skin, numbness in mouth or tongue, irritability, nervousness, unsteadiness, nightmares, bad dreams, and restless sleep. Checking your blood sugar routinely and eating a consistent diabetic diet can help regulate blood sugars and reduce side effects. Anticoagulant- educated on high risk medication Problem:High Risk Medications Goal:Patient/caregiv er will teach back high risk medication side effect and precaution education Completed patient educated on anticoagulant medication Eliquis Take your medication as instructed and at the same time each day. Do not stop medication or alter doses without speaking with your provider. Discuss medication effectiveness or side effect concerns with your provider and home care team. Discuss all medications you are taking, even [id number] medicines, with your provider and pharmacist since many drugs can interact with anticoagulants. Tell anyone providing medical or dental care that you are taking an anticoagulant. DO NOT STOP your medication even for a minor procedure like dental work without first checking with the provider. If you forget to take a dose, DO NOT take a double dose. Take the missed dose as soon as possible on the same day. DO NOT take a double dose the next day to make up for the missed dose. Watch for signs of abnormal or excessive bleeding and bruising (refer to Bleeding Precautions education). Call your health care provider right away if you suspect something is wrong. Instruct on importance of follow-up appts and continued monitoring with medical provider &/or chronic care clinic Problem:Discharge Goal:Manage discharge planning Completed Education provided on importance of compliance with follow-up appointment(s). Recommendations: appointment scheduled for 11/07 with PCP to address referrals Assess and instruct on measures to reduce edema Problem:SN Edema Goal:Patient will have improved edema management Completed patient instructed on elevation. Wound Care: Perform wound care (2) Description: Wound Care Order: Wound location: Back (R side) Wound type (etiology): Pressure injury Order: Cleanse with soap and water, pat dry, apply foam adhesive bandage Frequency: every other day and PRN Wound care to be completed by caregiver except for scheduled SN wound care visits. Measure wound/incision at least weekly. Okay to substitute comparable products from home care formulary. Problem:SN Integumentary/Wounds Goal:Patient/Caregiv er will have improved healing and be free of signs and symptoms of complications Equipment/suppli es unavailable Instruct on cardiovascular disease process and management of condition Description: Patient has following cardiac diagnosis(es): AFIB. Problem:SN Cardiovascular Condition Goal:Improved management of cardiovascular disease Completed patient instructed on self monitoring & symptom reporting. Instruct and educate on knowledge deficits Problem:SN Learning Assessment Goal:Demonstrate understanding of education Completed patient verbalize and/or demonstrate understanding of nursing education completed today. Education methods include: verbal cues. Further education required to improve knowledge and compliance with cardiac disease management, diabetic care management, fall prevention/home safety strategies, genitourinary care management, incision/wound care management, integumentary care management, medication management and nutrition. Nephrostomy Tubes: Instruct patient/caregiver on nephrostomy tube care/management Description: Nephrostomy tube location: Right Problem:SN Genitourinary disease process Goal:Patient/Caregiv er will verbalize understanding and demonstrate improved management of genitourinary disease/condition. Completed Patient instructed on management of complications and how to report to agency/physician. documented in this encounter [facility] Plan of care note* Visit Details Visit Type -HUERTAS ROUTINE Discipline -Occupational Therapy Problems Problem Description Start Date Status Goals Interve ntions Medication Education Disciplines: Skilled Services 11/02/2024 Active 1 goal linked to scheduled/document ed intervention 1 goal intervention scheduled/documente d in this visit Risk for skin breakdown Disciplines: Skilled Services 11/02/2024 Active 1 goal linked to scheduled/document ed intervention 1 goal intervention scheduled/documente d in this visit Physician Specific Parameters Disciplines: Skilled Services 11/02/2024 Active 1 goal linked to scheduled/document ed intervention 1 goal intervention scheduled/documente d in this visit Risk for Falls Disciplines: Skilled Services 11/02/2024 Active 1 goal linked to scheduled/document ed intervention 1 goal intervention scheduled/documente d in this visit Pain Disciplines: Skilled Services 11/02/2024 Active 1 goal linked to scheduled/document ed intervention 1 goal intervention scheduled/documente d in this visit Diabetic Foot Care Disciplines: Skilled Services 11/02/2024 Active 1 goal linked to scheduled/document ed intervention 1 goal intervention scheduled/documente d in this visit Discharge Disciplines: Skilled Services 11/02/2024 Active 1 goal linked to scheduled/document ed intervention 1 goal intervention scheduled/documente d in this visit OT Learning Assessment Disciplines: OT 11/04/2024 Active 1 goal linked to scheduled/document ed intervention 1 goal intervention scheduled/documente d in this visit OT ADLs/IADLs Disciplines: OT 11/04/2024 Active 1 goal linked to scheduled/document ed intervention 1 goal intervention scheduled/documente d in this visit OT Functional Transfers Disciplines: OT 11/04/2024 Active 1 goal linked to scheduled/document ed intervention 1 goal intervention scheduled/documente d in this visit OT Balance Disciplines: OT 11/04/2024 Active 1 goal linked to scheduled/document ed intervention 1 goal intervention scheduled/documente d in this visit Goals Goal Associated Problem Outcome Goal Met? Visit Notes Patient/caregiver will demonstrate ability to obtain, store, identify and administer ordered medications, keep accurate medication list in home, and adhere to medication schedule Description: Patient/caregiver will demonstrate ability to obtain, store, identify and administer ordered medications, keep accurate medication list in home, and adhere to medication schedule by 12/31/24. Medication Education No Manage risk for skin breakdown Description: Patient/caregiver will verbalize and demonstrate understanding of the risks and measures to be taken to monitor and prevent skin breakdown by 12/22/24. Risk for skin breakdown No Patient to maintain parameters within physician-specified ranges throughout certification period Physician Specific Parameters No Manage Risk for falls Description: Patient/caregiver will verbalize knowledge of individualized fall prevention strategies by 12/22/24. Risk for Falls No Manage Pain Description: Patient/caregiver will verbalize knowledge and understanding of appropriate techniques to control pain, including pain medication and non-pharmacological techniques. Patient will verbalize or demonstrate an acceptable level of pain as evidenced by a pain score of 0/10 and improvement in ability to perform activities of daily living to be achieved by 12/31/24. Pain No Manage diabetic foot care Description: Patient/caregiver will demonstrate basic understanding of and compliance with diabetic self-care management as evidenced by verbalizing purpose of daily foot care and assessment by 12/06/24. Diabetic Foot Care No Manage discharge planning Description: Patient/caregiver will verbalize understanding of ongoing discharge plan provided related to disease management, arrangements for outpatient and/or community services, obtaining medications, supplies, and DME, as needed throu ghout certification period. Discharge No Demonstrate understanding of education Description: Patient and/or caregiver will understand educational instruction to be achieved by 12/03/24. OT Learning Assessment No Improved ADLs/IADLs performance Description: patient will verbalize understanding of instructions and demonstrate improved performance of lower body dressing, bathing, toileting, meal prep, laundry and homemaking to independence as evidenced by improved Alex ADL Index score to at least 90/100 to be achieved by 12/03/24. OT ADLs/IADLs No Improved Functional Transfers Description: patient will demonstrate safe transfers to/from toilet and shower/tub with independent assistance and no verbal cues with use of DME to be achieved by 12/03/24. OT Functional Transfers No Improved Balance Description: Patient will demonstrate improved standing balance to meet functional goals as evidenced by ability to retrieve items from various height surfaces with Indep to be achieved by 12/03/24. OT Balance No Interventions Intervention Associated Problem/Goal Status Variance Visit Notes Medication Education Description: Evaluate/instruct patient/caregiver on obtaining, storing, identifying and administering ordered medications as well as keeping accurate medication list in the home and adhereing to medication schedule Problem:Medication Education Goal:Patient/caregive r will demonstrate ability to obtain, store, identify and administer ordered medications, keep accurate medication list in home, and adhere to medication schedule Completed Patient instructed on importance of keeping accurate medication list in home, need to take up-to-date medication list to all medical provider appointments and adhering to medication schedule. Instruct on the risks and measures to be taken to prevent skin breakdown Description: Patient's Osman Score is: 16. A Osman score <= to 18 indicates risk for skin breakdown. Problem:Risk for skin breakdown Goal:Manage risk for skin breakdown Completed patient instructed on maintaining skin integrity including: Incontinence care, Inspecting bony prominences, Routine skin care and Notifying [facility] clinician of changes to skin integrity Evaluation for pressure reduction surfaces completed for bed and chair. SPO2 Description: Notify Dr. Salyer if pulse ox is <92% at rest. Problem:Physician Specific Parameters Goal:Patient to maintain parameters within physician-specified ranges throughout certification period Completed Instruct on individual fall risk factors and strategies to prevent falls and injuries caused by falls. Problem:Risk for Falls Goal:Manage Risk for falls Completed OT: Patient instructed on Eliminating Environmental Hazards: Keep pathways clear, Keep rooms and walkways well lit, Wear supportive shoes or non-skid socks and Keep frequently used items within reach Instruct on pain and instruct on strategies to control pain Problem:Pain Goal:Manage Pain Completed Pt. reporting no pain. Educated Pt. to notify MD if pain were to occur and not resolve. Monitor lower extremities for skin lesions and educate on proper foot care Problem:Diabetic Foot Care Goal:Manage diabetic foot care Completed patient instructed on diabetic foot care including daily skin inspection, wearing proper footwear/avoiding going barefoot, wash/dry feet thoroughly and applying moisturizer, avoiding between toes. Instruct on ongoing discharge plan Problem:Discharge Goal:Manage discharge planning Completed Ongoing Discharge plan: Discharge plan discussed with patient including frequency and duration for home OT and plan for transition to: live independently at home without ongoing services. Instruct and educate on knowledge deficits Problem:OT Learning Assessment Goal:Demonstrate understanding of education Completed Education methods include: verbal cues. Patient/Caregiver require further education to improve knowledge and compliance with cardiac disease management, fall prevention strategies, pain management, balance training, home safety, infection control precautions, functional adl/iadl activity, functional transfers, endurance training and discharge planning. ADL/IADLs Training Problem:OT ADLs/IADLs Goal:Improved ADLs/IADLs performance Completed Instruct patient on energy conservation and safety and falls prevention and sock aide use to facilite improved performance of lower body dressing and toileting hygiene with independence and no verbal cues. Pt. uses a soft sock aid to michelle B socks. Pt. is able to perform clothing management with FWW prn. Pt. demo fair-/fair stand balance with unilateral support prn. Transfer Training Problem:OT Functional Transfers Goal:Improved Functional Transfers Completed Instruct patient on safe transfers and proper techniques including sit and swing technique for shower transfers to perform to and from toilet and shower/tub with independence and Supervision for a tub/shower transfer assistance and verbal cues for technique. education and training on the following adaptive equipment/durable medical equipment:grab bar(s) and shower chair. Pt. uses a walker in the home for now, Pt. has a non-slip mat inside her tub with a shower chair without arms. Educated Pt. on sit and swing technique for tub transfers to avoid stepping over tub edge as Pt. reporting It is sometimes hard to get my foot over the tub. Balance Training Problem:OT Balance Goal:Improved Balance Completed Pt. is able to reach various heights for gather/transporting clothing for ADLs with FWW, Pt. is able to transport clothing drapped over FWW, Pt. demo fair- stand balance, no LOB, Supervision for safety during functional reaching/bending. documented in this encounter [facility] Plan of care note* Visit Details Visit Type -FERTILIZER APPLICATOR ROUTINE Discipline -Physical Therapy Problems Problem Description Start Date Status Goals Interve ntions Medication Education Disciplines: Skilled Services 11/02/2024 Active 1 goal linked to scheduled/document ed intervention 1 goal intervention scheduled/documen naun in this visit Sepsis Disciplines: Skilled Services 11/02/2024 Active 1 goal linked to scheduled/document ed intervention 1 goal intervention scheduled/documen naun in this visit Physician Specific Parameters Disciplines: Skilled Services 11/02/2024 Active 1 goal linked to scheduled/document ed intervention 1 goal intervention scheduled/documen naun in this visit Risk for Falls Disciplines: Skilled Services 11/02/2024 Active 1 goal linked to scheduled/document ed intervention 1 goal intervention scheduled/documen naun in this visit Pain Disciplines: Skilled Services 11/02/2024 Active 1 goal linked to scheduled/document ed intervention 1 goal intervention scheduled/documen naun in this visit Diabetic Foot Care Disciplines: Skilled Services 11/02/2024 Active 1 goal linked to scheduled/document ed intervention 1 goal intervention scheduled/documen naun in this visit Discharge Disciplines: Skilled Services 11/02/2024 Active 1 goal linked to scheduled/document ed intervention 2 goal interventions scheduled/documen naun in this visit PT Impaired muscle performance and/or ROM Disciplines: PT 11/03/2024 Active 1 goal linked to scheduled/document ed intervention 1 goal intervention scheduled/documen naun in this visit PT Impaired mobility Disciplines: PT 11/03/2024 Active 2 goals linked to scheduled/document ed interventions 2 goal interventions scheduled/documen naun in this visit PT Impaired gait Disciplines: PT 11/03/2024 Active 2 goals linked to scheduled/document ed interventions 2 goal interventions scheduled/documen naun in this visit PT Learning Assessment Disciplines: PT 11/03/2024 Active 1 goal linked to scheduled/document ed intervention 1 goal intervention scheduled/documen naun in this visit PT Cardiovascular Disease Disciplines: PT 11/03/2024 Active 1 goal linked to scheduled/document ed intervention 1 goal intervention scheduled/documen naun in this visit Goals Goal Associated Problem Outcome Goal Met? Visit Notes Patient/caregiver will demonstrate ability to obtain, store, identify and administer ordered medications, keep accurate medication list in home, and adhere to medication schedule Description: Patient/caregiver will demonstrate ability to obtain, store, identify and administer ordered medications, keep accurate medication list in home, and adhere to medication schedule by 12/31/24. Medication Education No Patient/caregiver will be able to identify and report symptoms of sepsis Description: Patient/caregiver will be able to identify signs/symptoms of sepsis infection and will verbalize actions to take if suspected by 12/31/24. Sepsis No Patient to maintain parameters within physician-specified ranges throughout certification period Physician Specific Parameters No Manage Risk for falls Description: Patient/caregiver will verbalize knowledge of individualized fall prevention strategies by 12/22/24. Risk for Falls No Manage Pain Description: Patient/caregiver will verbalize knowledge and understanding of appropriate techniques to control pain, including pain medication and non-pharmacological techniques. Patient will verbalize or demonstrate an acceptable level of pain as evidenced by a pain score of 0/10 and improvement in ability to perform activities of daily living to be achieved by 12/31/24. Pain No Manage diabetic foot care Description: Patient/caregiver will demonstrate basic understanding of and compliance with diabetic self-care management as evidenced by verbalizing purpose of daily foot care and assessment by 12/06/24. Diabetic Foot Care No Manage discharge planning Description: Patient/caregiver will verbalize understanding of ongoing discharge plan provided related to disease management, arrangements for outpatient and/or community services, obtaining medications, supplies, and DME, as needed [facility] certification period. Discharge No Improved Muscle Performance and/or ROM Description: LTG: Patient will demonstrate improved muscle performance to meet functional goals as evidenced by ability to tolerate 10-15 minutes of therapeutic activity, to be achieved by 12/03/24. . STG: Patient and/or caregiver will verbalize/demonstrate independence with home exercise program, to improve functional mobility, to be achieved by 11/12/24. PT Impaired muscle performance and/or ROM No Improved Transfers Description: LTG: Patient will demonstrate safe transfers to/from bed, chair, couch and car independently with AD, to be achieved by 12/03/24. . PT Impaired mobility No Improved Bed Mobility Description: STG: Patient will demonstrate improved ability to position self, supine <> sit and bed mobility independently to be achieved by 11/19/24. PT Impaired mobility No Improved Stair Climbing Description: STG:: Patient will demonstrate improved stair negotiation as evidenced by ascend/descend 2 steps with railing and with cane independently, to be achieved by 11/19/24. PT Impaired gait No Improved Gait Description: STG: Patient will demonstrate improved gait ability as evidenced by ambulation 100 feet with standard walker independently with AD, in order to maneuver throughtou , to be achieved by 11/19/24. LTG: Patient will demonstrate improved gait ability as evidenced by ambulation 125 feet with single point cane independently with AD, to return to safe household and community ambulation, in order to return toward plf , to be achieved by 12/03/24. . PT Impaired gait No Demonstrate understanding of education Description: Patient and/or caregiver will understand educational instruction to be achieved by 12/03/24. PT Learning Assessment No Manage Secondary Cardiovascular disease Description: Improve patient and/or caregiver understanding of secondary cardiovascular disease management as evidenced by patient and/or caregiver able to verbalize, demonstrate, and teach back instruction, to be achieved by 12/03/24. PT Cardiovascular Disease No Interventions Intervention Associated Problem/Goal Status Variance Visit Notes Medication Education Description: Evaluate/instruct patient/caregiver on obtaining, storing, identifying and administering ordered medications as well as keeping accurate medication list in the home and adhereing to medication schedule Problem:Medication Education Goal:Patient/caregiv er will demonstrate ability to obtain, store, identify and administer ordered medications, keep accurate medication list in home, and adhere to medication schedule Completed Patient instructed on importance of keeping accurate medication list in home. Sepsis aftercare Description: Patient recenty treated for sepsis related to UTI, kidney stones. Educate on signs/symptoms of recurrent infection and actions to take if suspected. Problem:Sepsis Goal:Patient/caregiv er will be able to identify and report symptoms of sepsis Completed Patient instructed on signs/symptoms of recurrent infection including fever >101. SPO2 Description: Notify Dr. Grady if pulse ox is <92% at rest. Problem:Physician Specific Parameters Goal:Patient to maintain parameters within physician-specified ranges throughout certification period Completed Instruct on individual fall risk factors and strategies to prevent falls and injuries caused by falls. Problem:Risk for Falls Goal:Manage Risk for falls Completed PT: Patient instructed on Managing Impaired Functional Mobility: Use assistive device(s): front wheeled walker Instruct on pain and instruct on strategies to control pain Problem:Pain Goal:Manage Pain Completed Patient denies pain Monitor lower extremities for skin lesions and educate on proper foot care Problem:Diabetic Foot Care Goal:Manage diabetic foot care Completed patient instructed on diabetic foot care including wearing proper footwear/avoiding going barefoot. Instruct on ongoing discharge plan Problem:Discharge Goal:Manage discharge planning Completed Ongoing Discharge plan: Discharge plan discussed with patient including frequency and duration for home PT and plan for transition to: live independently at home without ongoing services. Deliver [facility] Problem:Discharge Goal:Manage discharge planning SN still active Physical Therapy Therapeutic Exercises Problem:PT Impaired muscle performance and/or ROM Goal:Improved Muscle Performance and/or ROM Completed patient instructed on strengthening exercises including seated faq, hip flexiopn and add, heel toe raises with verbal cues for HEP. patient instructed to perform home exercise program daily which included above ex. Physical Therapy Transfer Training Problem:PT Impaired mobility Goal:Improved Transfers Completed Transfer training and instruction to patient on safe transfers to and from chair with independent Physical Therapy Bed Mobility Training Problem:PT Impaired mobility Goal:Improved Bed Mobility Completed Bed mobility training and instruction to patient, including supine<>sit with independent Physical Therapy Stair Training Problem:PT Impaired gait Goal:Improved Stair Climbing Patient independent patient does not have stairs in her home Physical Therapy Gait Training Problem:PT Impaired gait Goal:Improved Gait Completed Gait training and instruction to patient on safe ambulation with front wheeled walker for 50 feet with independent, Instruct and educate on knowledge deficits Problem:PT Learning Assessment Goal:Demonstrate understanding of education Completed patient verbalize and/or demonstrate understanding of physical therapy education including functional activity and home exercise program. Education methods include: verbal cues. Further education required to improve knowledge and compliance with home exercise program. Instruct on signs, symptoms, and management of secondary cardiovascular disease Problem:PT Cardiovascular Disease Goal:Manage Secondary Cardiovascular disease Completed Instructed patient on instructed on when to call provider. [facility] Visit Details Visit Type -SN ROUTINE Discipline -Custodial Problems Problem Description Start Date Status Goals Interve ntions Medication Education Disciplines: Skilled Services 11/02/2024 Active 1 goal linked to scheduled/documen naun intervention 1 goal intervention scheduled/document ed in this visit Sepsis Disciplines: Skilled Services 11/02/2024 Active 1 goal linked to scheduled/documen naun intervention 1 goal intervention scheduled/document ed in this visit Risk for skin breakdown Disciplines: Skilled Services 11/02/2024 Active 1 goal linked to scheduled/documen naun intervention 1 goal intervention scheduled/document ed in this visit Physician Specific Parameters Disciplines: Skilled Services 11/02/2024 Active 1 goal linked to scheduled/documen naun intervention 1 goal intervention scheduled/document ed in this visit Risk for Falls Disciplines: Skilled Services 11/02/2024 Active 1 goal linked to scheduled/documen naun intervention 1 goal intervention scheduled/document ed in this visit Diabetic Foot Care Disciplines: Skilled Services 11/02/2024 Active 1 goal linked to scheduled/documen naun intervention 1 goal intervention scheduled/document ed in this visit Nutrition/Hydration Disciplines: Skilled Services 11/02/2024 Active 1 goal linked to scheduled/documen naun intervention 1 goal intervention scheduled/document ed in this visit High Risk Medications Disciplines: Skilled Services 11/02/2024 Active 1 goal linked to scheduled/documen naun intervention 2 goal interventions scheduled/document ed in this visit Discharge Disciplines: Skilled Services 11/02/2024 Active 1 goal linked to scheduled/documen naun intervention 1 goal intervention scheduled/document ed in this visit SN Edema Disciplines: SN 11/02/2024 Active 1 goal linked to scheduled/documen naun intervention 1 goal intervention scheduled/document ed in this visit SN Integumentary/Wound s Disciplines: SN 11/02/2024 Active 1 goal linked to scheduled/documen naun intervention 2 goal interventions scheduled/document ed in this visit SN Cardiovascular Condition Disciplines: SN 11/02/2024 Active 1 goal linked to scheduled/documen naun intervention 1 goal intervention scheduled/document ed in this visit SN Learning Assessment Disciplines: SN 11/02/2024 Active 1 goal linked to scheduled/documen naun intervention 1 goal intervention scheduled/document ed in this visit SN Genitourinary disease process Disciplines: SN 11/02/2024 Active 1 goal linked to scheduled/documen naun intervention 1 goal intervention scheduled/document ed in this visit Goals Goal Associated Problem Outcome Goal Met? Visit Notes Patient/caregiver will demonstrate ability to obtain, store, identify and administer ordered medications, keep accurate medication list in home, and adhere to medication schedule Description: Patient/caregiver will demonstrate ability to obtain, store, identify and administer ordered medications, keep accurate medication list in home, and adhere to medication schedule by 12/31/24. Medication Education No Patient/caregiver will be able to identify and report symptoms of sepsis Description: Patient/caregiver will be able to identify signs/symptoms of sepsis infection and will verbalize actions to take if suspected by 12/31/24. Sepsis No Manage risk for skin breakdown Description: Patient/caregiver will verbalize and demonstrate understanding of the risks and measures to be taken to monitor and prevent skin breakdown by 12/22/24. Risk for skin breakdown No Patient to maintain parameters within physician-specified ranges throughout certification period Physician Specific Parameters No Manage Risk for falls Description: Patient/caregiver will verbalize knowledge of individualized fall prevention strategies by 12/22/24. Risk for Falls No Manage diabetic foot care Description: Patient/caregiver will demonstrate basic understanding of and compliance with diabetic self-care management as evidenced by verbalizing purpose of daily foot care and assessment by 12/06/24. Diabetic Foot Care No Manage Nutrition/Hydration Description: Patient/caregiver will verbalize/demonstrate knowledge of prescribed diet and/or healthy nutrition to be achieved by 12/06/24. Nutrition/Hydration No Patient/caregiver will teach back high risk medication side effect and precaution education Description: STG Patient/caregiver will verbalize understanding of high risk medication side effects and precautions to be achieved by 11/22/24. LTG Patient/caregiver will continue to verbalize understanding of high risk medication side effects and precautions throughout certification period. High Risk Medications No Manage discharge planning Description: Patient/caregiver will verbalize understanding of ongoing discharge plan provided related to disease management, arrangements for outpatient and/or community services, obtaining medications, supplies, and DME, as needed [facility] certification period. Discharge No Patient will have improved edema management Description: Patient/caregiver will demonstrate an understanding of edema management strategies as evidenced by resolution or stabilization of edema by 12/06/24. SN Edema No Patient/Caregiver will have improved healing and be free of signs and symptoms of complications Description: Patient/caregiver will verbalize management strategies to promote wound healing & prevent complications as evidenced by improved healing & no complications by 12/31/24. SN Integumentary/Wounds No Improved management of cardiovascular disease Description: Improve patient/caregiver management of cardiac disease as evidenced by patient/caregiver ability to teach back cardiac management strategies by 12/22/24. SN Cardiovascular Condition No Demonstrate understanding of education Description: Patient and/or caregiver will verbalize understanding of educational instruction provided throughout certification period. SN Learning Assessment No Patient/Caregiver will verbalize understanding and demonstrate improved management of genitourinary disease/condition. Description: Patient/Caregiver will state understanding of genitourinary disease/condition and be able to teach back management strategies by 12/16/24. SN Genitourinary disease process No Interventions Intervention Associated Problem/Goal Status Variance Visit Notes Medication Education Description: Evaluate/instruct patient/caregiver on obtaining, storing, identifying and administering ordered medications as well as keeping accurate medication list in the home and adhereing to medication schedule Problem:Medication Education Goal:Patient/caregiv er will demonstrate ability to obtain, store, identify and administer ordered medications, keep accurate medication list in home, and adhere to medication schedule Completed Patient instructed on adhering to medication schedule. Sepsis aftercare Description: Patient recenty treated for sepsis related to UTI, kidney stones. Educate on signs/symptoms of recurrent infection and actions to take if suspected. Problem:Sepsis Goal:Patient/caregiv er will be able to identify and report symptoms of sepsis Completed Patient instructed on signs/symptoms of recurrent infection including fever >101, new or worsening onset of pain and significant change in patient condition. Instruct on the risks and measures to be taken to prevent skin breakdown Description: Patient's Osman Score is: 16. A Osman score <= to 18 indicates risk for skin breakdown. Problem:Risk for skin breakdown Goal:Manage risk for skin breakdown Completed patient instructed on maintaining skin integrity including: The need for every 1-2 hour turns, position changes, and maintaining activity as tolerated, Reducing risk of friction and shear, including use of draw sheet as appropriate, Incontinence care and Routine skin care SPO2 Description: Notify Dr. Grady if pulse ox is <92% at rest. Problem:Physician Specific Parameters Goal:Patient to maintain parameters within physician-specified ranges throughout certification period Completed Instruct on individual fall risk factors and strategies to prevent falls and injuries caused by falls. Problem:Risk for Falls Goal:Manage Risk for falls Completed SN: Patient instructed on Eliminating Environmental Hazards: Keep pathways clear and Keep rooms and walkways well lit Managing Impaired Functional Mobility: Use assistive device(s): front wheeled walker Monitor lower extremities for skin lesions and educate on proper foot care Problem:Diabetic Foot Care Goal:Manage diabetic foot care Completed patient instructed on diabetic foot care including daily skin inspection and wearing proper footwear/avoiding going barefoot. Define patient s appetite/hydration status and implement strategies to improve compliance with prescribed diet and/or healthy nutrition. Problem:Nutrition/Hy dration Goal:Manage Nutrition/Hydration Completed reinforced patient on implementing strategies to comply with adequate hydration Hypoglycemic (including insulin)- educated on high risk medication Problem:High Risk Medications Goal:Patient/caregiv er will teach back high risk medication side effect and precaution education Completed patient educated on taking medication(s) as prescribed by provider. Do not stop medication or skip/alter doses without speaking with your provider. Discuss medication effectiveness or side effect concerns with your provider and home care team. Check blood sugars and keep log as ordered by provider. Monitor for side effects of hypoglycemia such as increased weakness or shaking, moist skin, sweating, fast heartbeat, dizziness, sudden hunger, confusion, pale skin, numbness in mouth or tongue, irritability, nervousness, unsteadiness, nightmares, bad dreams, and restless sleep. Checking your blood sugar routinely and eating a consistent diabetic diet can help regulate blood sugars and reduce side effects. Anticoagulant- educated on high risk medication Problem:High Risk Medications Goal:Patient/caregiv er will teach back high risk medication side effect and precaution education Completed patient educated on anticoagulant medication eliquis Take your medication as instructed and at the same time each day. Do not stop medication or alter doses without speaking with your provider. Discuss medication effectiveness or side effect concerns with your provider and home care team. Discuss all medications you are taking, even [id number] medicines, with your provider and pharmacist since many drugs can interact with anticoagulants. Tell anyone providing medical or dental care that you are taking an anticoagulant. DO NOT STOP your medication even for a minor procedure like dental work without first checking with the provider. If you forget to take a dose, DO NOT take a double dose. Take the missed dose as soon as possible on the same day. DO NOT take a double dose the next day to make up for the missed dose. Watch for signs of abnormal or excessive bleeding and bruising (refer to Bleeding Precautions education). Call your health care provider right away if you suspect something is wrong. Instruct on ongoing discharge plan Problem:Discharge Goal:Manage discharge planning Completed Ongoing Discharge plan: Discharge plan discussed with patient including frequency and duration for home SN and plan for transition to: live independently at home without ongoing services. Assess and instruct on measures to reduce edema Problem:SN Edema Goal:Patient will have improved edema management Completed patient instructed on elevation and benefits of activity. Wound Care: Perform wound care (2) Description: Wound Care Order: Wound location: Back (R side) Wound type (etiology): Pressure injury Order: Cleanse with soap and water, pat dry, apply foam adhesive bandage Frequency: every other day and PRN Wound care to be completed by caregiver except for scheduled SN wound care visits. Measure wound/incision at least weekly. Okay to substitute comparable products from home care formulary. 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 Measure wound/incision at least weekly. Okay to substitute comparable products from home care formulary. Problem:SN Integumentary/Wounds Goal:Patient/Caregiv er will have improved healing and be free of signs and symptoms of complications Patient independent Instruct on cardiovascular disease process and management of condition Description: Patient has following cardiac diagnosis(es): AFIB. Problem:SN Cardiovascular Condition Goal:Improved management of cardiovascular disease Completed patient instructed on self monitoring & symptom reporting. Instruct and educate on knowledge deficits Problem:SN Learning Assessment Goal:Demonstrate understanding of education Completed patient verbalize and/or demonstrate understanding of nursing education completed today. Education methods include: verbal cues. Further education required to improve knowledge and compliance with cardiac disease management, diabetic care management, drain care management, fall prevention/home safety strategies, genitourinary care management, medication management and nutrition. Nephrostomy Tubes: Instruct patient/caregiver on nephrostomy tube care/management Description: Nephrostomy tube location: Right Problem:SN Genitourinary disease process Goal:Patient/Caregiv er will verbalize understanding and demonstrate improved management of genitourinary disease/condition. Completed Patient instructed on s/s of infection. [facility] Visit Details Visit Type -OT DISC DC WO SIT Discipline -Occupational Therapy Problems Problem Description Start Date Status Goals Interve ntions OT Learning Assessment Disciplines: OT 11/04/2024 Resolved on 11/12/2024 1 goal linked to scheduled/document ed intervention OT ADLs/IADLs Disciplines: OT 11/04/2024 Active 1 goal linked to scheduled/document ed intervention OT Upper Body Strength and/or ROM Disciplines: OT 11/04/2024 Resolved on 11/12/2024 1 goal linked to scheduled/document ed intervention OT Functional Transfers Disciplines: OT 11/04/2024 Resolved on 11/12/2024 1 goal linked to scheduled/document ed intervention OT Balance Disciplines: OT 11/04/2024 Resolved on 11/12/2024 1 goal linked to scheduled/document ed intervention Goals Goal Associated Problem Outcome Goal Met? Visit Notes Demonstrate understanding of education Description: Patient and/or caregiver will understand educational instruction to be achieved by 12/03/24. OT Learning Assessment Appropriate For Discharge Yes Improved ADLs/IADLs performance Description: patient will verbalize understanding of instructions and demonstrate improved performance of lower body dressing, bathing, toileting, meal prep, laundry and homemaking to independence as evidenced by improved Alex ADL Index score to at least 90/100 to be achieved by 12/03/24. OT ADLs/IADLs Appropriate For Discharge Yes Improved Strength and/or ROM Description: patient will verbalize/demonstrate independence with home exercise program, to improve functional performance, to be achieved by 12/03/24. OT Upper Body Strength and/or ROM Appropriate For Discharge Yes Improved Functional Transfers Description: patient will demonstrate safe transfers to/from toilet and shower/tub with independent assistance and no verbal cues with use of DME to be achieved by 12/03/24. OT Functional Transfers Appropriate For Discharge Yes Improved Balance Description: Patient will demonstrate improved standing balance to meet functional goals as evidenced by ability to retrieve items from various height surfaces with Indep to be achieved by 12/03/24. OT Balance Appropriate For Discharge Yes [facility] Visit Details Visit Type -SN ROUTINE Discipline -Custodial Problems Problem Description Start Date Status Goals Interve ntions Medication Education Disciplines: Skilled Services 11/02/2024 Active 1 goal linked to scheduled/documen naun intervention 1 goal intervention scheduled/document ed in this visit Sepsis Disciplines: Skilled Services 11/02/2024 Active 1 goal linked to scheduled/documen naun intervention 1 goal intervention scheduled/document ed in this visit Physician Specific Parameters Disciplines: Skilled Services 11/02/2024 Active 1 goal linked to scheduled/documen naun intervention 1 goal intervention scheduled/document ed in this visit Risk for Falls Disciplines: Skilled Services 11/02/2024 Active 1 goal linked to scheduled/documen naun intervention 1 goal intervention scheduled/document ed in this visit Pain Disciplines: Skilled Services 11/02/2024 Active 1 goal linked to scheduled/documen naun intervention 1 goal intervention scheduled/document ed in this visit Diabetic Foot Care Disciplines: Skilled Services 11/02/2024 Active 1 goal linked to scheduled/documen naun intervention 1 goal intervention scheduled/document ed in this visit Nutrition/Hydration Disciplines: Skilled Services 11/02/2024 Active 1 goal linked to scheduled/documen naun intervention 1 goal intervention scheduled/document ed in this visit High Risk Medications Disciplines: Skilled Services 11/02/2024 Active 1 goal linked to scheduled/documen naun intervention 2 goal interventions scheduled/document ed in this visit Discharge Disciplines: Skilled Services 11/02/2024 Active 1 goal linked to scheduled/documen naun intervention 2 goal interventions scheduled/document ed in this visit SN Edema Disciplines: SN 11/02/2024 Active 1 goal linked to scheduled/documen naun intervention 1 goal intervention scheduled/document ed in this visit SN Integumentary/Wound s Disciplines: SN 11/02/2024 Active 1 goal linked to scheduled/documen naun intervention 2 goal interventions scheduled/document ed in this visit SN Cardiovascular Condition Disciplines: SN 11/02/2024 Active 1 goal linked to scheduled/documen naun intervention 1 goal intervention scheduled/document ed in this visit SN Learning Assessment Disciplines: SN 11/02/2024 Active 1 goal linked to scheduled/documen naun intervention 1 goal intervention scheduled/document ed in this visit SN Genitourinary disease process Disciplines: SN 11/02/2024 Active 1 goal linked to scheduled/documen naun intervention 1 goal intervention scheduled/document ed in this visit Goals Goal Associated Problem Outcome Goal Met? Visit Notes Patient/caregiver will demonstrate ability to obtain, store, identify and administer ordered medications, keep accurate medication list in home, and adhere to medication schedule Description: Patient/caregiver will demonstrate ability to obtain, store, identify and administer ordered medications, keep accurate medication list in home, and adhere to medication schedule by 12/31/24. Medication Education No Patient/caregiver will be able to identify and report symptoms of sepsis Description: Patient/caregiver will be able to identify signs/symptoms of sepsis infection and will verbalize actions to take if suspected by 12/31/24. Sepsis No Patient to maintain parameters within physician-specified ranges throughout certification period Physician Specific Parameters No Manage Risk for falls Description: Patient/caregiver will verbalize knowledge of individualized fall prevention strategies by 12/22/24. Risk for Falls No Manage Pain Description: Patient/caregiver will verbalize knowledge and understanding of appropriate techniques to control pain, including pain medication and non-pharmacological techniques. Patient will verbalize or demonstrate an acceptable level of pain as evidenced by a pain score of 0/10 and improvement in ability to perform activities of daily living to be achieved by 12/31/24. Pain No Manage diabetic foot care Description: Patient/caregiver will demonstrate basic understanding of and compliance with diabetic self-care management as evidenced by verbalizing purpose of daily foot care and assessment by 12/06/24. Diabetic Foot Care No Manage Nutrition/Hydration Description: Patient/caregiver will verbalize/demonstrate knowledge of prescribed diet and/or healthy nutrition to be achieved by 12/06/24. Nutrition/Hydration No Patient/caregiver will teach back high risk medication side effect and precaution education Description: STG Patient/caregiver will verbalize understanding of high risk medication side effects and precautions to be achieved by 11/22/24. LTG Patient/caregiver will continue to verbalize understanding of high risk medication side effects and precautions throughout certification period. High Risk Medications No Manage discharge planning Description: Patient/caregiver will verbalize understanding of ongoing discharge plan provided related to disease management, arrangements for outpatient and/or community services, obtaining medications, supplies, and DME, as needed throu ghout certification period. Discharge No Patient will have improved edema management Description: Patient/caregiver will demonstrate an understanding of edema management strategies as evidenced by resolution or stabilization of edema by 12/06/24. SN Edema No Patient/Caregiver will have improved healing and be free of signs and symptoms of complications Description: Patient/caregiver will verbalize management strategies to promote wound healing & prevent complications as evidenced by improved healing & no complications by 12/31/24. SN Integumentary/Wounds No Improved management of cardiovascular disease Description: Improve patient/caregiver management of cardiac disease as evidenced by patient/caregiver ability to teach back cardiac management strategies by 12/22/24. SN Cardiovascular Condition No Demonstrate understanding of education Description: Patient and/or caregiver will verbalize understanding of educational instruction provided throughout certification period. SN Learning Assessment No Patient/Caregiver will verbalize understanding and demonstrate improved management of genitourinary disease/condition. Description: Patient/Caregiver will state understanding of genitourinary disease/condition and be able to teach back management strategies by 12/16/24. SN Genitourinary disease process No Interventions Intervention Associated Problem/Goal Status Variance Visit Notes Medication Education Description: Evaluate/instruct patient/caregiver on obtaining, storing, identifying and administering ordered medications as well as keeping accurate medication list in the home and adhereing to medication schedule Problem:Medication Education Goal:Patient/caregiver will demonstrate ability to obtain, store, identify and administer ordered medications, keep accurate medication list in home, and adhere to medication schedule Completed Patient and Caregiver instructed on importance of keeping accurate medication list in home, adhering to medication schedule and Medication, route, dose, frequency, purpose, and side effects of all medications. Sepsis aftercare Description: Patient recenty treated for sepsis related to UTI, kidney stones. Educate on signs/symptoms of recurrent infection and actions to take if suspected. Problem:Sepsis Goal:Patient/caregiver will be able to identify and report symptoms of sepsis Completed Patient instructed on signs/symptoms of recurrent infection including fever >101, tachycardia >90 or higher per their baseline, SBP <90mmHg or 40mmHg change in BP from baseline, new or worsening onset of pain, decreased urine output, new onset change in mentation status and significant change in patient condition. SPO2 Description: Notify Dr. Grady if pulse ox is <92% at rest. Problem:Physician Specific Parameters Goal:Patient to maintain parameters within physician-specified ranges throughout certification period Completed Instruct on individual fall risk factors and strategies to prevent falls and injuries caused by falls. Problem:Risk for Falls Goal:Manage Risk for falls Completed SN: Patient and Caregiver instructed on Eliminating Environmental Hazards: Keep pathways clear, Keep pets out of pathways, Remove unsafe rugs, Move furniture from pathways and Keep rooms and walkways well lit Managing Cognitive Impairment/Depressio n: Recommended use of visual cues/reminders for safety Instruct on pain and instruct on strategies to control pain Problem:Pain Goal:Manage Pain Completed pt denies c/o pain Monitor lower extremities for skin lesions and educate on proper foot care Problem:Diabetic Foot Care Goal:Manage diabetic foot care Completed patient instructed on diabetic foot care including daily skin inspection and wearing proper footwear/avoiding going barefoot. Define patient s appetite/hydration status and implement strategies to improve compliance with prescribed diet and/or healthy nutrition. Problem:Nutrition/Hydr ation Goal:Manage Nutrition/Hydration Completed instructed patient on implementing strategies to comply with prescribed diet, healthy nutrition and adequate hydration Hypoglycemic (including insulin)- educated on high risk medication Problem:High Risk Medications Goal:Patient/caregiver will teach back high risk medication side effect and precaution education Completed patient educated on taking medication(s) as prescribed by provider. Do not stop medication or skip/alter doses without speaking with your provider. Discuss medication effectiveness or side effect concerns with your provider and home care team. Check blood sugars and keep log as ordered by provider. Monitor for side effects of hypoglycemia such as increased weakness or shaking, moist skin, sweating, fast heartbeat, dizziness, sudden hunger, confusion, pale skin, numbness in mouth or tongue, irritability, nervousness, unsteadiness, nightmares, bad dreams, and restless sleep. Checking your blood sugar routinely and eating a consistent diabetic diet can help regulate blood sugars and reduce side effects. Anticoagulant- educated on high risk medication Problem:High Risk Medications Goal:Patient/caregiver will teach back high risk medication side effect and precaution education Completed patient educated on anticoagulant medication eliquis Take your medication as instructed and at the same time each day. Do not stop medication or alter doses without speaking with your provider. Discuss medication effectiveness or side effect concerns with your provider and home care team. Discuss all medications you are taking, even [id number] medicines, with your provider and pharmacist since many drugs can interact with anticoagulants. Tell anyone providing medical or dental care that you are taking an anticoagulant. DO NOT STOP your medication even for a minor procedure like dental work without first checking with the provider. If you forget to take a dose, DO NOT take a double dose. Take the missed dose as soon as possible on the same day. DO NOT take a double dose the next day to make up for the missed dose. Watch for signs of abnormal or excessive bleeding and bruising (refer to Bleeding Precautions education). Call your health care provider right away if you suspect something is wrong. Instruct on ongoing discharge plan Problem:Discharge Goal:Manage discharge planning Completed Ongoing Discharge plan: Discharge plan discussed with patient including frequency and duration for home SN and plan for transition to: live independently at home without ongoing services. Instruct on importance of follow-up appts and continued monitoring with medical provider &/or chronic care clinic Problem:Discharge Goal:Manage discharge planning Completed Education provided on importance of compliance with follow-up appointment(s). Recommendations: None Assess and instruct on measures to reduce edema Problem:SN Edema Goal:Patient will have improved edema management none noted Wound Care: Perform wound care (2) Description: Wound Care Order: Wound location: Back (R side) Wound type (etiology): Pressure injury Order: Cleanse with soap and water, pat dry, apply foam adhesive bandage Frequency: every other day and PRN Wound care to be completed by caregiver except for scheduled SN wound care visits. Measure wound/incision at least weekly. Okay to substitute comparable products from home care formulary. Problem:SN Integumentary/Wounds Goal:Patient/Caregiver will have improved healing and be free of signs and symptoms of complications Completed Completed by SN. Patient did tolerate well. 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 Measure wound/incision at least weekly. Okay to substitute comparable products from home care formulary. Problem:SN Integumentary/Wounds Goal:Patient/Caregiver will have improved healing and be free of signs and symptoms of complications Completed Completed by SN. Patient did tolerate well. Instruct on cardiovascular disease process and management of condition Description: Patient has following cardiac diagnosis(es): AFIB. Problem:SN Cardiovascular Condition Goal:Improved management of cardiovascular disease Completed patient instructed on cardiac disease process. Instruct and educate on knowledge deficits Problem:SN Learning Assessment Goal:Demonstrate understanding of education Completed patient verbalize and/or demonstrate understanding of nursing education completed today. Education methods include: verbal cues and teach back. Further education required to improve knowledge and compliance with cardiac disease management, fall prevention/home safety strategies, genitourinary care management, incision/wound care management, integumentary care management, medication management, nutrition and pain management. Nephrostomy Tubes: Instruct patient/caregiver on nephrostomy tube care/management Description: Nephrostomy tube location: Right Problem:SN Genitourinary disease process Goal:Patient/Caregiver will verbalize understanding and demonstrate improved management of genitourinary disease/condition. Completed Patient instructed on site care and s/s of infection. documented in this encounter [facility] Plan of care note* Visit Details Visit Type -SN ROUTINE Discipline -Custodial Problems Problem Description Start Date Status Goals Interve ntions Medication Education Disciplines: Skilled Services 11/02/2024 Active 1 goal linked to scheduled/documen naun intervention 1 goal intervention scheduled/document ed in this visit Sepsis Disciplines: Skilled Services 11/02/2024 Active 1 goal linked to scheduled/documen naun intervention 1 goal intervention scheduled/document ed in this visit Risk for skin breakdown Disciplines: Skilled Services 11/02/2024 Active 1 goal linked to scheduled/documen naun intervention 1 goal intervention scheduled/document ed in this visit Physician Specific Parameters Disciplines: Skilled Services 11/02/2024 Active 1 goal linked to scheduled/documen naun intervention 1 goal intervention scheduled/document ed in this visit Risk for Falls Disciplines: Skilled Services 11/02/2024 Active 1 goal linked to scheduled/documen naun intervention 1 goal intervention scheduled/document ed in this visit Diabetic Foot Care Disciplines: Skilled Services 11/02/2024 Active 1 goal linked to scheduled/documen naun intervention 1 goal intervention scheduled/document ed in this visit High Risk Medications Disciplines: Skilled Services 11/02/2024 Active 1 goal linked to scheduled/documen naun intervention 2 goal interventions scheduled/document ed in this visit SN Edema Disciplines: SN 11/02/2024 Active 1 goal linked to scheduled/documen naun intervention 1 goal intervention scheduled/document ed in this visit SN Integumentary/Wound s Disciplines: SN 11/02/2024 Active 1 goal linked to scheduled/documen naun intervention SN Cardiovascular Condition Disciplines: SN 11/02/2024 Active 1 goal linked to scheduled/documen naun intervention 1 goal intervention scheduled/document ed in this visit SN Learning Assessment Disciplines: SN 11/02/2024 Active 1 goal linked to scheduled/documen naun intervention 1 goal intervention scheduled/document ed in this visit SN Genitourinary disease process Disciplines: SN 11/02/2024 Active 1 goal linked to scheduled/documen naun intervention 1 goal intervention scheduled/document ed in this visit Goals Goal Associated Problem Outcome Goal Met? Visit Notes Patient/caregiver will demonstrate ability to obtain, store, identify and administer ordered medications, keep accurate medication list in home, and adhere to medication schedule Description: Patient/caregiver will demonstrate ability to obtain, store, identify and administer ordered medications, keep accurate medication list in home, and adhere to medication schedule by 12/31/24. Medication Education No Patient/caregiver will be able to identify and report symptoms of sepsis Description: Patient/caregiver will be able to identify signs/symptoms of sepsis infection and will verbalize actions to take if suspected by 12/31/24. Sepsis No Manage risk for skin breakdown Description: Patient/caregiver will verbalize and demonstrate understanding of the risks and measures to be taken to monitor and prevent skin breakdown by 12/22/24. Risk for skin breakdown No Patient to maintain parameters within physician-specified ranges throughout certification period Physician Specific Parameters No Manage Risk for falls Description: Patient/caregiver will verbalize knowledge of individualized fall prevention strategies by 12/22/24. Risk for Falls No Manage diabetic foot care Description: Patient/caregiver will demonstrate basic understanding of and compliance with diabetic self-care management as evidenced by verbalizing purpose of daily foot care and assessment by 12/06/24. Diabetic Foot Care No Patient/caregiver will teach back high risk medication side effect and precaution education Description: STG Patient/caregiver will verbalize understanding of high risk medication side effects and precautions to be achieved by 11/22/24. LTG Patient/caregiver will continue to verbalize understanding of high risk medication side effects and precautions throughout certification period. High Risk Medications No Patient will have improved edema management Description: Patient/caregiver will demonstrate an understanding of edema management strategies as evidenced by resolution or stabilization of edema by 12/06/24. SN Edema No Patient/Caregiver will have improved healing and be free of signs and symptoms of complications Description: Patient/caregiver will verbalize management strategies to promote wound healing & prevent complications as evidenced by improved healing & no complications by 12/31/24. SN Integumentary/Wounds In Progress No Improved management of cardiovascular disease Description: Improve patient/caregiver management of cardiac disease as evidenced by patient/caregiver ability to teach back cardiac management strategies by 12/22/24. SN Cardiovascular Condition No Demonstrate understanding of education Description: Patient and/or caregiver will verbalize understanding of educational instruction provided throughout certification period. SN Learning Assessment No Patient/Caregiver will verbalize understanding and demonstrate improved management of genitourinary disease/condition. Description: Patient/Caregiver will state understanding of genitourinary disease/condition and be able to teach back management strategies by 12/16/24. SN Genitourinary disease process No Interventions Intervention Associated Problem/Goal Status Variance Visit Notes Medication Education Description: Evaluate/instruct patient/caregiver on obtaining, storing, identifying and administering ordered medications as well as keeping accurate medication list in the home and adhereing to medication schedule Problem:Medication Education Goal:Patient/caregiver will demonstrate ability to obtain, store, identify and administer ordered medications, keep accurate medication list in home, and adhere to medication schedule Completed Patient instructed on adhering to medication schedule and how to order refills. Sepsis aftercare Description: Patient recenty treated for sepsis related to UTI, kidney stones. Educate on signs/symptoms of recurrent infection and actions to take if suspected. Problem:Sepsis Goal:Patient/caregiver will be able to identify and report symptoms of sepsis Completed Patient instructed on signs/symptoms of recurrent infection including fever >101, new or worsening onset of pain, decreased urine output, new onset change in mentation status and significant change in patient condition. Instruct on the risks and measures to be taken to prevent skin breakdown Description: Patient's Osman Score is: 16. A Osman score <= to 18 indicates risk for skin breakdown. Problem:Risk for skin breakdown Goal:Manage risk for skin breakdown Completed patient instructed on maintaining skin integrity including: Reducing risk of friction and shear, including use of draw sheet as appropriate and Routine skin care SPO2 Description: Notify Dr. Grady if pulse ox is <92% at rest. Problem:Physician Specific Parameters Goal:Patient to maintain parameters within physician-specified ranges throughout certification period Completed Instruct on individual fall risk factors and strategies to prevent falls and injuries caused by falls. Problem:Risk for Falls Goal:Manage Risk for falls Completed SN: Patient instructed on Eliminating Environmental Hazards: Keep pathways clear and Keep rooms and walkways well lit Managing Impaired Functional Mobility: Caregiver to provide assist with: Steps Monitor lower extremities for skin lesions and educate on proper foot care Problem:Diabetic Foot Care Goal:Manage diabetic foot care Completed patient instructed on diabetic foot care including wearing proper footwear/avoiding going barefoot. Hypoglycemic (including insulin)- educated on high risk medication Problem:High Risk Medications Goal:Patient/caregiver will teach back high risk medication side effect and precaution education Completed patient educated on taking medication(s) as prescribed by provider. Do not stop medication or skip/alter doses without speaking with your provider. Discuss medication effectiveness or side effect concerns with your provider and home care team. Check blood sugars and keep log as ordered by provider. Monitor for side effects of hypoglycemia such as increased weakness or shaking, moist skin, sweating, fast heartbeat, dizziness, sudden hunger, confusion, pale skin, numbness in mouth or tongue, irritability, nervousness, unsteadiness, nightmares, bad dreams, and restless sleep. Checking your blood sugar routinely and eating a consistent diabetic diet can help regulate blood sugars and reduce side effects. Anticoagulant- educated on high risk medication Problem:High Risk Medications Goal:Patient/caregiver will teach back high risk medication side effect and precaution education Completed patient educated on anticoagulant medication eliquis Take your medication as instructed and at the same time each day. Do not stop medication or alter doses without speaking with your provider. Discuss medication effectiveness or side effect concerns with your provider and home care team. Discuss all medications you are taking, even [id number] medicines, with your provider and pharmacist since many drugs can interact with anticoagulants. Tell anyone providing medical or dental care that you are taking an anticoagulant. DO NOT STOP your medication even for a minor procedure like dental work without first checking with the provider. If you forget to take a dose, DO NOT take a double dose. Take the missed dose as soon as possible on the same day. DO NOT take a double dose the next day to make up for the missed dose. Watch for signs of abnormal or excessive bleeding and bruising (refer to Bleeding Precautions education). Call your health care provider right away if you suspect something is wrong. Assess and instruct on measures to reduce edema Problem:SN Edema Goal:Patient will have improved edema management Completed patient instructed on elevation. Instruct on cardiovascular disease process and management of condition Description: Patient has following cardiac diagnosis(es): AFIB. Problem:SN Cardiovascular Condition Goal:Improved management of cardiovascular disease Completed patient instructed on self monitoring & symptom reporting. Instruct and educate on knowledge deficits Problem:SN Learning Assessment Goal:Demonstrate understanding of education Completed patient verbalize and/or demonstrate understanding of nursing education completed today. Education methods include: verbal cues and visual cues. Further education required to improve knowledge and compliance with cardiac disease management, diabetic care management, drain care management, fall prevention/home safety strategies, genitourinary care management, medication management and nutrition. Nephrostomy Tubes: Instruct patient/caregiver on nephrostomy tube care/management Description: Nephrostomy tube location: Right Problem:SN Genitourinary disease process Goal:Patient/Caregiver will verbalize understanding and demonstrate improved management of genitourinary disease/condition. Completed Patient instructed on keep site clean and dry. documented in this encounter [facility] Plan of care note* Visit Details Visit Type -SN ROUTINE Discipline -Custodial Problems Problem Description Start Date Status Goals Interve ntions Medication Education Disciplines: Skilled Services 11/02/2024 Active 1 goal linked to scheduled/documen naun intervention 1 goal intervention scheduled/document ed in this visit Sepsis Disciplines: Skilled Services 11/02/2024 Active 1 goal linked to scheduled/documen naun intervention 1 goal intervention scheduled/document ed in this visit Risk for skin breakdown Disciplines: Skilled Services 11/02/2024 Active 1 goal linked to scheduled/documen naun intervention 1 goal intervention scheduled/document ed in this visit Physician Specific Parameters Disciplines: Skilled Services 11/02/2024 Active 1 goal linked to scheduled/documen naun intervention 1 goal intervention scheduled/document ed in this visit Risk for Falls Disciplines: Skilled Services 11/02/2024 Active 1 goal linked to scheduled/documen naun intervention 1 goal intervention scheduled/document ed in this visit Diabetic Foot Care Disciplines: Skilled Services 11/02/2024 Active 1 goal linked to scheduled/documen naun intervention 1 goal intervention scheduled/document ed in this visit Nutrition/Hydration Disciplines: Skilled Services 11/02/2024 Active 1 goal linked to scheduled/documen naun intervention 1 goal intervention scheduled/document ed in this visit High Risk Medications Disciplines: Skilled Services 11/02/2024 Active 1 goal linked to scheduled/documen naun intervention 1 goal intervention scheduled/document ed in this visit SN Edema Disciplines: SN 11/02/2024 Active 1 goal linked to scheduled/documen naun intervention 1 goal intervention scheduled/document ed in this visit SN Cardiovascular Condition Disciplines: SN 11/02/2024 Active 1 goal linked to scheduled/documen naun intervention 1 goal intervention scheduled/document ed in this visit SN Learning Assessment Disciplines: 11/02/2024 Active 1 goal linked to scheduled/documen naun intervention 1 goal intervention scheduled/document ed in this visit SN Genitourinary disease process Disciplines: 11/02/2024 Active 1 goal linked to scheduled/documen naun intervention 1 goal intervention scheduled/document ed in this visit Goals Goal Associated Problem Outcome Goal Met? Visit Notes Patient/caregiver will demonstrate ability to obtain, store, identify and administer ordered medications, keep accurate medication list in home, and adhere to medication schedule Description: Patient/caregiver will demonstrate ability to obtain, store, identify and administer ordered medications, keep accurate medication list in home, and adhere to medication schedule by 12/31/24. Medication Education No Patient/caregiver will be able to identify and report symptoms of sepsis Description: Patient/caregiver will be able to identify signs/symptoms of sepsis infection and will verbalize actions to take if suspected by 12/31/24. Sepsis No Manage risk for skin breakdown Description: Patient/caregiver will verbalize and demonstrate understanding of the risks and measures to be taken to monitor and prevent skin breakdown by 12/22/24. Risk for skin breakdown No Patient to maintain parameters within physician-specified ranges throughout certification period Physician Specific Parameters No Manage Risk for falls Description: Patient/caregiver will verbalize knowledge of individualized fall prevention strategies by 12/22/24. Risk for Falls No Manage diabetic foot care Description: Patient/caregiver will demonstrate basic understanding of and compliance with diabetic self-care management as evidenced by verbalizing purpose of daily foot care and assessment by 12/06/24. Diabetic Foot Care No Manage Nutrition/Hydration Description: Patient/caregiver will verbalize/demonstrate knowledge of prescribed diet and/or healthy nutrition to be achieved by 12/06/24. Nutrition/Hydration No Patient/caregiver will teach back high risk medication side effect and precaution education Description: STG Patient/caregiver will verbalize understanding of high risk medication side effects and precautions to be achieved by 11/22/24. LTG Patient/caregiver will continue to verbalize understanding of high risk medication side effects and precautions throughout certification period. High Risk Medications No Patient will have improved edema management Description: Patient/caregiver will demonstrate an understanding of edema management strategies as evidenced by resolution or stabilization of edema by 12/06/24. SN Edema No Improved management of cardiovascular disease Description: Improve patient/caregiver management of cardiac disease as evidenced by patient/caregiver ability to teach back cardiac management strategies by 12/22/24. SN Cardiovascular Condition No Demonstrate understanding of education Description: Patient and/or caregiver will verbalize understanding of educational instruction provided throughout certification period. SN Learning Assessment No Patient/Caregiver will verbalize understanding and demonstrate improved management of genitourinary disease/condition. Description: Patient/Caregiver will state understanding of genitourinary disease/condition and be able to teach back management strategies by 12/16/24. SN Genitourinary disease process No Interventions Intervention Associated Problem/Goal Status Variance Visit Notes Medication Education Description: Evaluate/instruct patient/caregiver on obtaining, storing, identifying and administering ordered medications as well as keeping accurate medication list in the home and adhereing to medication schedule Problem:Medication Education Goal:Patient/caregiver will demonstrate ability to obtain, store, identify and administer ordered medications, keep accurate medication list in home, and adhere to medication schedule Completed Patient instructed on adhering to medication schedule. Sepsis aftercare Description: Patient recenty treated for sepsis related to UTI, kidney stones. Educate on signs/symptoms of recurrent infection and actions to take if suspected. Problem:Sepsis Goal:Patient/caregiver will be able to identify and report symptoms of sepsis Completed Patient instructed on signs/symptoms of recurrent infection including fever >101, new or worsening onset of pain, decreased urine output and new onset change in mentation status. Instruct on the risks and measures to be taken to prevent skin breakdown Description: Patient's Osman Score is: 16. A Osman score <= to 18 indicates risk for skin breakdown. Problem:Risk for skin breakdown Goal:Manage risk for skin breakdown Completed patient instructed on maintaining skin integrity including: Routine skin care SPO2 Description: Notify Dr. Grady if pulse ox is <92% at rest. Problem:Physician Specific Parameters Goal:Patient to maintain parameters within physician-specified ranges throughout certification period Completed Instruct on individual fall risk factors and strategies to prevent falls and injuries caused by falls. Problem:Risk for Falls Goal:Manage Risk for falls Completed SN: Patient instructed on Eliminating Environmental Hazards: Keep pathways clear and Keep rooms and walkways well lit Monitor lower extremities for skin lesions and educate on proper foot care Problem:Diabetic Foot Care Goal:Manage diabetic foot care Completed patient instructed on diabetic foot care including wearing proper footwear/avoiding going barefoot. Define patient s appetite/hydration status and implement strategies to improve compliance with prescribed diet and/or healthy nutrition. Problem:Nutrition/Hydr ation Goal:Manage Nutrition/Hydration Completed reinforced patient on implementing strategies to comply with healthy nutrition and adequate hydration Anticoagulant- educated on high risk medication Problem:High Risk Medications Goal:Patient/caregiver will teach back high risk medication side effect and precaution education Completed patient educated on anticoagulant medication eliquis Take your medication as instructed and at the same time each day. Do not stop medication or alter doses without speaking with your provider. Discuss medication effectiveness or side effect concerns with your provider and home care team. Discuss all medications you are taking, even [id number] medicines, with your provider and pharmacist since many drugs can interact with anticoagulants. Tell anyone providing medical or dental care that you are taking an anticoagulant. DO NOT STOP your medication even for a minor procedure like dental work without first checking with the provider. If you forget to take a dose, DO NOT take a double dose. Take the missed dose as soon as possible on the same day. DO NOT take a double dose the next day to make up for the missed dose. Watch for signs of abnormal or excessive bleeding and bruising (refer to Bleeding Precautions education). Call your health care provider right away if you suspect something is wrong. Assess and instruct on measures to reduce edema Problem:SN Edema Goal:Patient will have improved edema management Completed patient instructed on elevation. Instruct on cardiovascular disease process and management of condition Description: Patient has following cardiac diagnosis(es): AFIB. Problem:SN Cardiovascular Condition Goal:Improved management of cardiovascular disease Completed patient instructed on self monitoring & symptom reporting. Instruct and educate on knowledge deficits Problem:SN Learning Assessment Goal:Demonstrate understanding of education Completed patient verbalize and/or demonstrate understanding of nursing education completed today. Education methods include: verbal cues and visual cues. Further education required to improve knowledge and compliance with cardiac disease management, diabetic care management, fall prevention/home safety strategies, genitourinary care management, incision/wound care management, integumentary care management, medication management and nutrition. Nephrostomy Tubes: Instruct patient/caregiver on nephrostomy tube care/management Description: Nephrostomy tube location: Right Problem:SN Genitourinary disease process Goal:Patient/Caregiver will verbalize understanding and demonstrate improved management of genitourinary disease/condition. Completed Patient instructed on keep dressing clean and dry. documented in this encounter [facility] Plan of care note* Visit Details Visit Type -SN ROUTINE Discipline -Custodial Problems Problem Description Start Date Status Goals Interve ntions Medication Education Disciplines: Skilled Services 11/02/2024 Active 1 goal linked to scheduled/docume nted intervention 1 goal intervention scheduled/documen naun in this visit Sepsis Disciplines: Skilled Services 11/02/2024 Active 1 goal linked to scheduled/docume nted intervention 1 goal intervention scheduled/documen naun in this visit Risk for skin breakdown Disciplines: Skilled Services 11/02/2024 Resolved on 12/09/2024 1 goal linked to scheduled/docume nted intervention 1 goal intervention scheduled/documen naun in this visit Physician Specific Parameters Disciplines: Skilled Services 11/02/2024 Active 1 goal linked to scheduled/docume nted intervention 1 goal intervention scheduled/documen naun in this visit Risk for Falls Disciplines: Skilled Services 11/02/2024 Active 1 goal linked to scheduled/docume nted intervention 1 goal intervention scheduled/documen naun in this visit Pain Disciplines: Skilled Services 11/02/2024 Resolved on 12/09/2024 1 goal linked to scheduled/docume nted intervention Diabetic Foot Care Disciplines: Skilled Services 11/02/2024 Active 1 goal linked to scheduled/docume nted intervention 1 goal intervention scheduled/documen naun in this visit Nutrition/Hydration Disciplines: Skilled Services 11/02/2024 Resolved on 12/09/2024 1 goal linked to scheduled/docume nted intervention 1 goal intervention scheduled/documen naun in this visit High Risk Medications Disciplines: Skilled Services 11/02/2024 Resolved on 12/09/2024 1 goal linked to scheduled/docume nted intervention 1 goal intervention scheduled/documen naun in this visit Discharge Disciplines: Skilled Services 11/02/2024 Active 1 goal linked to scheduled/docume nted intervention 2 goal interventions scheduled/documen naun in this visit SN Edema Disciplines: SN 11/02/2024 Resolved on 12/09/2024 1 goal linked to scheduled/docume nted intervention SN Cardiovascular Condition Disciplines: SN 11/02/2024 Active 1 goal linked to scheduled/docume nted intervention 1 goal intervention scheduled/documen naun in this visit SN Learning Assessment Disciplines: SN 11/02/2024 Active 1 goal linked to scheduled/docume nted intervention 1 goal intervention scheduled/documen naun in this visit SN Genitourinary disease process Disciplines: 11/02/2024 Active 1 goal linked to scheduled/docume nted intervention 1 goal intervention scheduled/documen naun in this visit Goals Goal Associated Problem Outcome Goal Met? Visit Notes Patient/caregiver will demonstrate ability to obtain, store, identify and administer ordered medications, keep accurate medication list in home, and adhere to medication schedule Description: Patient/caregiver will demonstrate ability to obtain, store, identify and administer ordered medications, keep accurate medication list in home, and adhere to medication schedule by 12/31/24. Medication Education No Patient/caregiver will be able to identify and report symptoms of sepsis Description: Patient/caregiver will be able to identify signs/symptoms of sepsis infection and will verbalize actions to take if suspected by 12/31/24. Sepsis No Manage risk for skin breakdown Description: Patient/caregiver will verbalize and demonstrate understanding of the risks and measures to be taken to monitor and prevent skin breakdown by 12/22/24. Risk for skin breakdown Completed Yes Patient to maintain parameters within physician-specified ranges throughout certification period Physician Specific Parameters No Manage Risk for falls Description: Patient/caregiver will verbalize knowledge of individualized fall prevention strategies by 12/22/24. Risk for Falls No Manage Pain Description: Patient/caregiver will verbalize knowledge and understanding of appropriate techniques to control pain, including pain medication and non-pharmacological techniques. Patient will verbalize or demonstrate an acceptable level of pain as evidenced by a pain score of 0/10 and improvement in ability to perform activities of daily living to be achieved by 12/31/24. Pain Completed Yes Manage diabetic foot care Description: Patient/caregiver will demonstrate basic understanding of and compliance with diabetic self-care management as evidenced by verbalizing purpose of daily foot care and assessment by 12/06/24. Diabetic Foot Care No Manage Nutrition/Hydration Description: Patient/caregiver will verbalize/demonstrate knowledge of prescribed diet and/or healthy nutrition to be achieved by 12/06/24. Nutrition/Hydration Completed Yes Patient/caregiver will teach back high risk medication side effect and precaution education Description: STG Patient/caregiver will verbalize understanding of high risk medication side effects and precautions to be achieved by 11/22/24. LTG Patient/caregiver will continue to verbalize understanding of high risk medication side effects and precautions throughout certification period. High Risk Medications Completed Yes Manage discharge planning Description: Patient/caregiver will verbalize understanding of ongoing discharge plan provided related to disease management, arrangements for outpatient and/or community services, obtaining medications, supplies, and DME, as needed [facility] certification period. Discharge No Patient will have improved edema management Description: Patient/caregiver will demonstrate an understanding of edema management strategies as evidenced by resolution or stabilization of edema by 12/06/24. SN Edema Completed Yes Improved management of cardiovascular disease Description: Improve patient/caregiver management of cardiac disease as evidenced by patient/caregiver ability to teach back cardiac management strategies by 12/22/24. SN Cardiovascular Condition No Demonstrate understanding of education Description: Patient and/or caregiver will verbalize understanding of educational instruction provided throughout certification period. SN Learning Assessment No Patient/Caregiver will verbalize understanding and demonstrate improved management of genitourinary disease/condition. Description: Patient/Caregiver will state understanding of genitourinary disease/condition and be able to teach back management strategies by 12/16/24. SN Genitourinary disease process No Interventions Intervention Associated Problem/Goal Status Variance Visit Notes Medication Education Description: Evaluate/instruct patient/caregiver on obtaining, storing, identifying and administering ordered medications as well as keeping accurate medication list in the home and adhereing to medication schedule Problem:Medication Education Goal:Patient/caregiver will demonstrate ability to obtain, store, identify and administer ordered medications, keep accurate medication list in home, and adhere to medication schedule Completed Patient instructed on adhering to medication schedule. Sepsis aftercare Description: Patient recenty treated for sepsis related to UTI, kidney stones. Educate on signs/symptoms of recurrent infection and actions to take if suspected. Problem:Sepsis Goal:Patient/caregiver will be able to identify and report symptoms of sepsis Completed Patient instructed on signs/symptoms of recurrent infection including fever >101, new or worsening onset of pain and decreased urine output. Instruct on the risks and measures to be taken to prevent skin breakdown Description: Patient's Osman Score is: 16. A Osman score <= to 18 indicates risk for skin breakdown. Problem:Risk for skin breakdown Goal:Manage risk for skin breakdown Completed patient instructed on maintaining skin integrity including: Routine skin care SPO2 Description: Notify Dr. Grady if pulse ox is <92% at rest. Problem:Physician Specific Parameters Goal:Patient to maintain parameters within physician-specified ranges throughout certification period Completed Instruct on individual fall risk factors and strategies to prevent falls and injuries caused by falls. Problem:Risk for Falls Goal:Manage Risk for falls Completed SN: Patient instructed on Eliminating Environmental Hazards: Keep pathways clear and Keep rooms and walkways well lit Monitor lower extremities for skin lesions and educate on proper foot care Problem:Diabetic Foot Care Goal:Manage diabetic foot care Completed patient instructed on diabetic foot care including daily skin inspection. Define patient s appetite/hydration status and implement strategies to improve compliance with prescribed diet and/or healthy nutrition. Problem:Nutrition/Hydr ation Goal:Manage Nutrition/Hydration Completed reinforced patient on implementing strategies to comply with prescribed diet, healthy nutrition and adequate hydration Anticoagulant- educated on high risk medication Problem:High Risk Medications Goal:Patient/caregiver will teach back high risk medication side effect and precaution education Completed patient educated on anticoagulant medication eliquis Take your medication as instructed and at the same time each day. Do not stop medication or alter doses without speaking with your provider. Discuss medication effectiveness or side effect concerns with your provider and home care team. Discuss all medications you are taking, even vtoo-cqj-upmfqhd medicines, with your provider and pharmacist since many drugs can interact with anticoagulants. Tell anyone providing medical or dental care that you are taking an anticoagulant. DO NOT STOP your medication even for a minor procedure like dental work without first checking with the provider. If you forget to take a dose, DO NOT take a double dose. Take the missed dose as soon as possible on the same day. DO NOT take a double dose the next day to make up for the missed dose. Watch for signs of abnormal or excessive bleeding and bruising (refer to Bleeding Precautions education). Call your health care provider right away if you suspect something is wrong. Deliver NOMNC Problem:Discharge Goal:Manage discharge planning Completed Delivered NOMNC on 12/09/24 for discharge date of 12/16/24. Instruct on ongoing discharge plan Problem:Discharge Goal:Manage discharge planning Completed Ongoing Discharge plan: Discharge plan discussed with patient including frequency and duration for home SN and plan for transition to: live independently at home without ongoing services. Instruct on cardiovascular disease process and management of condition Description: Patient has following cardiac diagnosis(es): AFIB. Problem:SN Cardiovascular Condition Goal:Improved management of cardiovascular disease Completed patient instructed on self monitoring & symptom reporting. Instruct and educate on knowledge deficits Problem:SN Learning Assessment Goal:Demonstrate understanding of education Completed patient verbalize and/or demonstrate understanding of nursing education completed today. Education methods include: verbal cues. Further education required to improve knowledge and compliance with cardiac disease management, drain care management, fall prevention/home safety strategies, genitourinary care management and medication management. Nephrostomy Tubes: Instruct patient/caregiver on nephrostomy tube care/management Description: Nephrostomy tube location: Right Problem:SN Genitourinary disease process Goal:Patient/Caregiver will verbalize understanding and demonstrate improved management of genitourinary disease/condition. Completed Patient instructed on management of complications and how to report to agency/physician. documented in this encounter [facility] Plan of care note* Visit Details Visit Type -SN AGENCY DC W V ISIT Discipline -Custodial Problems Problem Description Start Date Status Goals Interve ntions Medication Education Disciplines: Skilled Services 11/02/2024 Resolved on 12/23/2024 1 goal linked to scheduled/docume nted intervention 1 goal intervention scheduled/documen naun in this visit Sepsis Disciplines: Skilled Services 11/02/2024 Resolved on 12/23/2024 1 goal linked to scheduled/docume nted intervention Physician Specific Parameters Disciplines: Skilled Services 11/02/2024 Resolved on 12/23/2024 1 goal linked to scheduled/docume nted intervention 1 goal intervention scheduled/documen naun in this visit Risk for Falls Disciplines: Skilled Services 11/02/2024 Resolved on 12/23/2024 1 goal linked to scheduled/docume nted intervention 1 goal intervention scheduled/documen naun in this visit Diabetic Foot Care Disciplines: Skilled Services 11/02/2024 Resolved on 12/23/2024 1 goal linked to scheduled/docume nted intervention 1 goal intervention scheduled/documen naun in this visit Discharge Disciplines: Skilled Services 11/02/2024 Resolved on 12/23/2024 1 goal linked to scheduled/docume nted intervention 2 goal interventions scheduled/documen naun in this visit SN Cardiovascular Condition Disciplines: SN 11/02/2024 Resolved on 12/23/2024 1 goal linked to scheduled/docume nted intervention 1 goal intervention scheduled/documen naun in this visit SN Learning Assessment Disciplines: SN 11/02/2024 Resolved on 12/23/2024 1 goal linked to scheduled/docume nted intervention 1 goal intervention scheduled/documen naun in this visit SN Genitourinary disease process Disciplines: SN 11/02/2024 Resolved on 12/23/2024 1 goal linked to scheduled/docume nted intervention Goals Goal Associated Problem Outcome Goal Met? Visit Notes Patient/caregiver will demonstrate ability to obtain, store, identify and administer ordered medications, keep accurate medication list in home, and adhere to medication schedule Description: Patient/caregiver will demonstrate ability to obtain, store, identify and administer ordered medications, keep accurate medication list in home, and adhere to medication schedule by 12/31/24. Medication Education Completed Yes Patient/caregiver will be able to identify and report symptoms of sepsis Description: Patient/caregiver will be able to identify signs/symptoms of sepsis infection and will verbalize actions to take if suspected by 12/31/24. Sepsis Completed Yes Patient to maintain parameters within physician-specified ranges throughout certification period Physician Specific Parameters Completed Yes Manage Risk for falls Description: Patient/caregiver will verbalize knowledge of individualized fall prevention strategies by 12/22/24. Risk for Falls Completed Yes Manage diabetic foot care Description: Patient/caregiver will demonstrate basic understanding of and compliance with diabetic self-care management as evidenced by verbalizing purpose of daily foot care and assessment by 12/06/24. Diabetic Foot Care Completed Yes Manage discharge planning Description: Patient/caregiver will verbalize understanding of ongoing discharge plan provided related to disease management, arrangements for outpatient and/or community services, obtaining medications, supplies, and DME, as needed [facility] certification period. Discharge Completed Yes Improved management of cardiovascular disease Description: Improve patient/caregiver management of cardiac disease as evidenced by patient/caregiver ability to teach back cardiac management strategies by 12/22/24. SN Cardiovascular Condition Completed Yes Demonstrate understanding of education Description: Patient and/or caregiver will verbalize understanding of educational instruction provided throughout certification period. SN Learning Assessment Completed Yes Patient/Caregiver will verbalize understanding and demonstrate improved management of genitourinary disease/condition. Description: Patient/Caregiver will state understanding of genitourinary disease/condition and be able to teach back management strategies by 12/16/24. SN Genitourinary disease process Completed Yes Interventions Intervention Associated Problem/Goal Status Variance Visit Notes Medication Education Description: Evaluate/instruct patient/caregiver on obtaining, storing, identifying and administering ordered medications as well as keeping accurate medication list in the home and adhereing to medication schedule Problem:Medication Education Goal:Patient/caregiver will demonstrate ability to obtain, store, identify and administer ordered medications, keep accurate medication list in home, and adhere to medication schedule Completed Patient instructed on need to take up-to-date medication list to all medical provider appointments and adhering to medication schedule. SPO2 Description: Notify Dr. Grady if pulse ox is <92% at rest. Problem:Physician Specific Parameters Goal:Patient to maintain parameters within physician-specified ranges throughout certification period Completed Instruct on individual fall risk factors and strategies to prevent falls and injuries caused by falls. Problem:Risk for Falls Goal:Manage Risk for falls Completed SN: Patient instructed on Eliminating Environmental Hazards: Keep pathways clear and Keep rooms and walkways well lit Managing Impaired Functional Mobility: Use assistive device(s): single point cane Monitor lower extremities for skin lesions and educate on proper foot care Problem:Diabetic Foot Care Goal:Manage diabetic foot care Completed patient instructed on diabetic foot care including daily skin inspection. Instruct on final discharge plan and deliver discharge instructions Problem:Discharge Goal:Manage discharge planning Completed Delivered Discharge plan: Discharge plan discussed with patient for plan for transition to: live independently at home without ongoing services Instruct on importance of follow-up appts and continued monitoring with medical provider &/or chronic care clinic Problem:Discharge Goal:Manage discharge planning Completed Education provided on importance of compliance with follow-up appointment(s). Recommendations: patient/caregiver to follow up with scheduling appointment(s) for post-acute/primary care provider/chronic care clinic Instruct on cardiovascular disease process and management of condition Description: Patient has following cardiac diagnosis(es): AFIB. Problem:SN Cardiovascular Condition Goal:Improved management of cardiovascular disease Completed patient instructed on self monitoring & symptom reporting. Instruct and educate on knowledge deficits Problem:SN Learning Assessment Goal:Demonstrate understanding of education Completed patient verbalize and/or demonstrate understanding of nursing education completed today. Education methods include: verbal cues and written instructions. Further education required to improve knowledge and compliance with cardiac disease management, fall prevention/home safety strategies, genitourinary care management, hematological care management, medication management and nutrition. documented [facility] this encounter [facility] Author Wily Wen [facility] Note Date/Time June 07, 2025 1 :56pm [facility] [address] [place] [address] OFFICE VISIT Date of Service: 06/07/25 MR#: [id number] Acct: [id number] Name: ALIYAH LECAH Rep #: [id number] : 1955 Provider: Dr. Mele Wen MD Age/Sex: 70/F Location: [facility] [place] Status: Signed HPI HPI History of Present Illness Details: This lady with history of atrial fibrillation in the setting of renal colic and urosepsis is for follow-up visit. Since her last visit with us, she was seen byelectrophysiology. They recommended doing a event monitoring for her. It did not show any recurrence of her atrial fibrillation. Subsequently her apixaban was discontinued. The plan by electrophysiology is implantation of a loop recorder for her and following that for the next 3 years. Per patient, she was admitted to the hospital last week with renal colic again. Per her, she was told in the hospital that she had an episode of atrial fibrillation again. She has had a ureteral stent placed. According to her, theplan is for her to have lithotripsy for her renal stones. 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 Accompanied by: Self Is patient in pain?: No Allergies Penicillins (PCN) Allergy (Verified 06/07/25 13:31) Swelling tolterodine tartrate (From Detrol) Allergy (Verified 06/07/25 13:31) Swelling Medications ?Medication ?Instructions ?Recorded ?Confirmed ?Type multivitamin,ez-wawh-relflgxh 27 1 tab PO DAILY SUPPLE MENT 12/21/14 06/07/25 History mg-0.4 mg tablet cyanocobalamin (vitamin B-12) 2,500 mcg PO DAILY SUPPL EMENT 06/23/18 06/07/25 History 2,500 mcg tablet fluoxetine 40 mg capsule 40 mg PO DAILY DEPRESSION 06/07/25 History levothyroxine 112 mcg tablet 112 mcg PO DAILY THYROID 07/29/22 06/07/25 History metformin 1,000 mg tablet 1,000 mg PO BID DM 07/29/22 06/07/25 History pravastatin 40 mg tablet 40 mg PO QHS CHOLESTEROL 02/1206/07/25 History cholecalciferol (vitamin D3) 125 125 mcg PO QDAY 11/2806/07/25 History mcg (5,000 unit) capsule dulaglutide 1.5 mg/0.5 mL 1.5 mg subcut QWEEK 11/28/24 06/07/25 History subcutaneous pen injector (Trulicity) losartan 25 mg tablet 25 mg PO BID 11/28/24 History magnesium oxide 420 mg tablet 420 mg PO BID 11/28/24 1 History vit C 250 mg-vit E 90 mg-zinc 40 1 tab PO BID 11/28/24 06/07/25 History mg-copper 1 jj-pxbckv-ygwvxm capsule (PreserVision AREDS-2) cefdinir 300 mg capsule 300 mg PO BID 06/07/2506/07 History Ejection fraction %: 64 Have you fallen in the past year?: No PFSH Medical History Lightheadedness Psoriasis Obesity Incontinence of urine Hives Hernia of abdominal cavity Hernia Gall stones Endometrial cancer Diarrhea Benign neoplasm of colon Hypothyroidism Diabetes mellitus CHAPITO (acute kidney injury) UTI (urinary tract infection) Atrial fibrillation with RVR Lactic acidosis Severe sepsis Right ureteral stone H/O cancer of uterus h/o cervical h/o colon cancer Depression hypercholesterolemia Diabetes HTN (hypertension) Surgical History History of cataract removal with insertion of prosthetic lens S/P colonoscopy (~06/23/18) H/O colonoscopy S/P appendectomy History of laparoscopic cholecystectomy History of bilateral knee replacement S/P hysterectomy S/P colectomy Family History Father Colon cancer Rectal cancer Mother Diabetes CVA (cerebral vascular accident) Renal failure Sister Hypertension Diabetes Cancer lymphoma, leukemia Brother Diabetes Aunt Cancer breast Social History household members: spouse and family Smoking Status: Never smoker alcohol intake: current alcohol intake frequency: holidays/special occasions only substance use type: does not use ROS Const Const: Negative for fatigue or weakness Eyes Eyes: Negative for change in vision ENT ENT: Positive for dizziness and balance problems Cardio Chest Pain: No Palpitations: Yes feels like its: fast and irregular Edema: None Resp Respiratory: Negative for SOB with activity, SOB at rest or SOB orthopnea\SOB lying down GI GI: Negative nausea or heartburn Musc Musc: Positive for balance problems Neuro Neuro: Positive for dizziness and lightheadedness; Negative for near syncope, syncope or weakness Endo Endo: Negative for fatigue Cardiology Exam Const Appearance: comfortable and no acute distress Nutritional Appearance: well nourished Neck Neck: no JVD Carotids: Negative bruit Chest Auscultation: Bilateral: Clear to Auscultation Cardio Rate: regular rate Rhythm: regular rhythm Heart sounds: S1 normal and S2 normal Neuro General: patient alert, patient awake and patient oriented x3 Extremities Lower Extremity Edema: None: Bilateral Supplemental Info Supplemental Information Diagnostics: Electrocardiogram Abdomen/Pelvis CT Past Visits: Cardiology Visit Today Assessment and Plan Assessment and Plan (1) History of atrial fibrillation: Status: Chronic Plan: Per patient, she was told during her hospitalization last week that she had another episode of atrial fibrillation. We will check records from the hospital. If that indeed was the case, then she will need to be put on apixabanagain. Her CHADS2?VASc score is 4. Keep appointment with electrophysiology for next month. Check Lexiscan stress Myoview. (2) HTN (hypertension): Status: Chronic Qualifiers: Hypertension type: primary hypertension Qualified Code(s): I10 - Essential (primary) hypertension Plan: On losartan and metoprolol. (3) Diabetes mellitus: Status: Chronic Qualifiers: Diabetes mellitus type: type 2 Diabetes mellitus rodent exterminator insulin use:without rodent exterminator use Plan: As per PCP. (4) Renal stone: Status: Chronic Plan: As per urology. Plan Details Follow Up: 3 Months Coding Level of Care Code Off vis,est,level 4 Diagnoses History of atrial fibrillation Z86.79 Primary hypertension I10 Hypertension type: primary hypertension Diabetes mellitus E11.9 Diabetes mellitus type: type 2 Diabetes mellitus halfway insulin use: without rodent exterminator use Renal stone N20.0 Coding Level of Care Code Off vis,est,level 4 Diagnoses History of atrial fibrillation Z86.79 Primary hypertension I10 Hypertension type: primary hypertension Diabetes mellitus E11.9 Diabetes mellitus type: type 2 Diabetes mellitus halfway insulin use: without halfway use Renal stone N20.0 Clinical Quality Measures Falls Risk Screening/Assistive Devices Have you fallen in the past year?: No Cardiac Ejection fraction %: 64 06/07/25 1400 <Electronically signed by Wily Wen MD> Date _ Wily Wen MD Cosigner Signature: Date (if applicable) CC: Dr. Bobby Grady MD ~ [facility] [employer] Work Phone: [employer] for referral (narrative)* Outpatient Procedure (Routine) - Closed Specialty Diagnoses / Procedures Referred By Contac t Referred To Contact [facility] Diagnoses Change in bowel habits Hx of colon cancer, stage I Procedures COLONOSCOPY DIAGNOSTIC COLONOSCOPY DIAGNOSTIC COLONOSCOPY FLX DX W/COLLJ SPEC WHEN PFRMD COLONOSCOPY FLX DX W/COLLJ SPEC WHEN PFRMD Petra Nicolas PA-C [address] [place] [address] [facility] [address] [place] [id number] Referral ID Status Reason Start Date Expiration Date V isits Requested Visits Authorized [id number] Closed Auto-Generate d Referral 12/03/2021 08/23/2022 1 1 [facility] for referral (narrative)* Diagnostic Procedure Only (Routine) - Closed Specialty Diagnoses / Procedures Referred By Contac t Referred To Contact [facility] Diagnoses Encounter for screening mammogram for breast cancer Procedures ISAMAR SCREENING SCREENING MAMMOGRAPHY BI 2-VIEW BREAST INC CAD Bobby Grady MD [address] [place] [address] [facility] [address] [place] [address] Referral ID Status Reason Start Date Expiration Date V isits Requested Visits Authorized [id number] Closed Auto-Generate d Referral 09/17/2022 10/17/2023 1 1 [facility] for referral (narrative)* Diagnostic Procedure Only (Routine) - Authorized Specialty Diagnoses / Procedures Referred By Hank brothers Referred To Contact [facility] Diagnoses Encounter for screening mammogram for breast cancer Procedures ISAMAR SCREENING SCREENING MAMMOGRAPHY BI 2-VIEW BREAST INC Valerie El PA-C [address] [place] [address] [facility] [address] [place] [address] Referral ID Status Reason Start Date Expiration Date Visits Requested Visits Authorized [id number] Authorized Auto-Generat ed Referral 10/05/2023 10/31/2024 1 1 [facility] Diagnostic Procedure Only (Routine) - New Request Specialty Diagnoses / Procedures Referred By Hank brothers Referred To Contact [facility] Diagnoses Encounter for screening mammogram for breast cancer Procedures ISAMAR SCREENING W CONRADO SCREENING DIGITAL BREAST TOMOSYNTHESIS BI SCREENING MAMMOGRAPHY BI 2-VIEW BREAST INC Jo Ann Campos APRN.CNP [address] [place] [address] [facility] [address] [address] Referral ID Status Reason Start Date Expiration Date Visits Requested Visits Authorized [id number] New Request Auto-Generat ed Referral 05/19/2024 06/18/2025 1 1 [facility] for referral (narrative)No [facility] for [facility] Work Phone: Reason for visit Narrative* Outpatient Procedure (Routine) - Closed Specialty Diagnoses / Procedures Referred By Hank brothers Referred To Contact [facility] Diagnoses Change in bowel habits Hx of colon cancer, stage I Procedures COLONOSCOPY DIAGNOSTIC COLONOSCOPY DIAGNOSTIC COLONOSCOPY FLX DX W/COLLJ SPEC WHEN PFRMD COLONOSCOPY FLX DX W/COLLJ SPEC WHEN PFRMD Petra Nicolas PA-C [address] [place] [address] [facility] [address] [place] [id number] Referral ID Status Reason Start Date Expiration Date V isits Requested Visits Authorized [id number] Closed Auto-Generate d Referral 12/03/2021 08/23/2022 1 1 [facility] for visit Narrative* Diagnostic Procedure Only (Routine) - Closed Specialty Diagnoses / Procedures Referred By Contac t Referred To Contact [facility] Diagnoses Encounter for screening mammogram for breast cancer Procedures ISAMAR SCREENING SCREENING MAMMOGRAPHY BI 2-VIEW BREAST INC CAD Bobby Grady MD [address] [place] [address] [facility] [address] [place] [address] Referral ID Status Reason Start Date Expiration Date V isits Requested Visits Authorized [id number] Closed Auto-Generate d Referral 09/17/2022 10/17/2023 1 1 [facility] for visit Narrative* Diagnostic Procedure Only (Routine) - Closed Specialty Diagnoses / Procedures Referred By Hank t Referred To Contact [facility] Diagnoses Encounter for screening mammogram for breast cancer Procedures ISAMAR SCREENING SCREENING MAMMOGRAPHY BI 2-VIEW BREAST INC CAD Valerie Yeboah PA-C [address] [place] [address] [facility] [address] [place] [address] Referral ID Status Reason Start Date Expiration Date V isits Requested Visits Authorized [id number] Closed Auto-Generate d Referral 10/05/2023 10/31/2024 1 1 [facility] for visit Narrative* Auth/Cert (Routine) Specialty Diagnoses / Procedures Referred By Hank t Referred To Contact [facility] [address] [place] [address] Phone: tel: Referral ID Status Reason Start Date Expiration Date Visits Re quested Visits Authorized [id number] 1 1 [facility] for visit Narrative* Diagnostic Procedure Only (Routine) - Closed Specialty Diagnoses / Procedures Referred By Contac t Referred To Contact [facility] Diagnoses Encounter for screening mammogram for breast cancer Procedures ISAMAR SCREENING W CONRADO SCREENING DIGITAL BREAST TOMOSYNTHESIS BI SCREENING MAMMOGRAPHY BI 2-VIEW BREAST INC Jo Ann Campos APRN.MIGRATORY GAME BIRD BIOLOGIST [address] [place] [address] Phone: tel: fax: [facility] [address] [place] [address] Referral ID Status Reason Start Date Expiration Date V isits Requested Visits Authorized [id number] Closed Auto-Generate d Referral 05/19/2024 06/18/2025 1 1 [facility] for visit Narrative* MRI/CT (Routine) - Closed Specialty Diagnoses / Procedures Referred By Hank brothers Referred To Contact [facility] Diagnoses Other symptoms and signs involving the nervous system Visual hallucination Malignant neoplasm of colon, unspecified part of colon (HCC) Procedures MRI BRAIN WO/W IVCON MRI BRAIN BRAIN STEM W/O W/CONTRAST MATERIAL Bobby Grady MD [address] [place] [address] Phone: tel: fax: [place] [id number] Referral ID Status Reason Start Date Expiration Date V isits Requested Visits Authorized [id number] Closed Auto-Generate d Referral 03/01/2025 03/31/2026 1 1 [facility] for visit Narrative* Outpatient Procedure (Routine) - Closed Specialty Diagnoses / Procedures Referred By Hank brothers Referred To Contact [facility] Diagnoses Personal history of colon cancer Procedures COLONOSCOPY SCREENING COLONOSCOPY FLX DX W/COLLJ SPEC WHEN PFRMD Jacque Reveles PA-C [address] [facility] [place] [address] Phone: tel: fax: [facility] [address] [place] [address] Referral ID Status Reason Start Date Expiration Date V isits Requested Visits Authorized [id number] Closed Auto-Generate d Referral 01/23/2025 01/23/2026 1 1 [facility] for visit Narrative* Diagnostic Procedure Only (Routine) - Closed Specialty Diagnoses / Procedures Referred By Hank brothers Referred To Contact [facility] Diagnoses Right ureteral calculus Procedures US KIDNEY/BLADDER US RETROPERITONEAL REAL TIME W/IMAGE COMPLETE TravisDimitris, GOLF CLUB MANAGER.MIGRATORY GAME BIRD BIOLOGIST [address] [place] [address] Phone: tel: fax: [place] [address] Referral ID Status Reason Start Date Expiration Date V isits Requested Visits Authorized [id number] Closed Auto-Generate d Referral 04/26/2025 02/23/2026 1 [facility] Diagnostic Procedure Only (Routine) - Closed Specialty Diagnoses / Procedures Referred By Contac t Referred To Contact XR [facility] Diagnoses Right ureteral calculus Procedures XR ABDOMEN 1V SUPINE RADIOLOGIC EXAM ABDOMEN 1 VIEW Dimitris Robles, GOLF CLUB MANAGER.MIGRATORY GAME BIRD BIOLOGIST [address] [place] [address] Phone: tel: fax: [place] [address] Referral ID Status Reason Start Date Expiration Date V isits Requested Visits Authorized [id number] Closed Auto-Generate d Referral 04/26/2025 02/23/2026 1 1 [facility] Summary Purpose Family History No Family History Records Found Relationship Condition Age at Onset Recorded Date/[place] father Malignant neoplasm of colon Unknown mother Diabetes mellitus Unknown Cerebrovascular accident (CVA) Unknown Relationship Condition Age at Onset Recorded Date/[place] father Malignant neoplasm of colon Unknown Malignant neoplasm of rectum Unknown mother Diabetes mellitus Unknown Cerebrovascular accident (CVA) Unknown Renal failure Unknown sister Hypertension Unknown Diabetes mellitus Unknown Malignant neoplasm Unknown brother Diabetes mellitus Unknown aunt Malignant neoplasm Unknown Advance Directives No Advanced Directives Records Found Date Activated Date Inactivated Comments 11/02/2024 2:25 PM 12/12/2024 11:11 AM Date Activated Date Inactivated Comments 10/23/2024 11:28 AM 10/31/2024 9:09 PM Question Answer Comments Full Code Order Discussed With: Patient Date Activated Date Inactivated Comments 10/23/2024 11:28 AM 10/31/2024 9:09 PM Question Answer Comments Full Code Order Discussed With: Patient Documents on File Type Date Recorded Patient Toll Line Inspector Expl anation Advance Directive(s) 04/11/2020 8:29 AM Advance Directive(s) 11/19/2018 1:13 PM Documents on File Type Date Recorded Patient Toll Line Inspector Expl anation Advance Directive(s) 04/11/2020 8:29 AM Advance Directive(s) 11/19/2018 1:13 PM Documents on File Type Date Recorded Patient Toll Line Inspector Expl anation Advance Directive(s) 02/05/2022 12:25 PM Advance Directive(s) 04/11/2020 8:29 AM Advance Directive(s) 11/19/2018 1:13 PM Documents on File Type Date Recorded Patient Toll Line Inspector Expl anation Advance Directive(s) 02/05/2022 12:25 PM Advance Directive(s) 04/11/2020 8:29 AM Advance Directive(s) 11/19/2018 1:13 PM Advance Directive Response Recorded Date/ Time Advance Directives No January 01 5 2:53pm Living Will No July 29 4:11pm Power of Sort Operations Supervisor No July 29, 2022 4:11pm Advance Directive Response Recorded Date/ Time Advance Directives No January 01 5 2:53pm Living Will No July 29 8:34pm Power of Sort Operations Supervisor No July 29, 2022 8:34pm Date Activated Date Inactivated Comments 10/23/2024 11:28 AM Date Activated Date Inactivated Comments 11/02/2024 2:25 PM Date Activated Date Inactivated Comments 10/23/2024 11:28 AM 10/31/2024 9:09 PM Question Answer Comments Full Code Order Discussed With: Patient Date Activated Date Inactivated Comments 11/02/2024 2:25 PM Date Activated Date Inactivated Comments 11/02/2024 2:25 PM 12/12/2024 11:11 AM Advance Directive Response Recorded Date/ Time Living Will No October 23, 2024 2:09am Do you have a Healthcare Power of Sort Operations Supervisor? No October 23, 2024 2:09am Advance Directives No January 01 3:53pm Advance Directive Response Recorded Date/ Time Advance Directives No January 01 3:53pm Reason for Referral Specialty Diagnoses / Procedures Referred By Hank brothers Referred To Contact Diagnoses History of cervical cancer History of colon cancer History of uterine cancer Procedures CONSULT TO MEDICAL GENETICS - CANCER MEDICAL GENETICS COUNSELING EACH 30 MINUTES Michael Rolon MD [address] [address] Referral ID Status Reason Start Date Expiration Date Visits Requested Visits Authorized [id number] Pending Review PCP Requested Referral Auto-Generate d Referral 02/13/2022 01/30/2023 1 1 Specialty Diagnoses / Procedures Referred By Contac t Referred To Contact [facility] Diagnoses Pain in joint of right hip Procedures PT REHAB FOLLOW UP ORDER THERAPEUTIC EXERCISES RE, EA 15 MIN. Silviano Rasmussen, PT [address] [place] [address] [facility] [place] [address] [place] [address] Referral ID Status Reason Start Date Expiration Date Visits Requested Visits Authorized [id number] Pending Review PCP Requested Referral Auto-Generate d Referral 10/16/2022 01/14/2023 1 1 Specialty Diagnoses / Procedures Referred By Contac t Referred To Contact Valerie Yeboah PA-C [address] [place] [address] Referral ID Status Reason Start Date Expiration Date Visits Re quested Visits Authorized [id number] Closed 1 1 Specialty Diagnoses / Procedures Referred By Contac t Referred To Contact Gynecology Diagnoses Endometrial cancer (HCC) History of cervical cancer Procedures CONSULT TO GYNECOLOGY OFFICE/OUTPATIENT [facility] 60 MINUTES Ynes Cameron APRN.MIGRATORY GAME BIRD BIOLOGIST [address] [place] [address] Referral ID Status Reason Start Date Expiration Date Visits Requested Visits Authorized [id number] Authorized PCP Requested Referral Auto-Generate d Referral 04/04/2024 04/04/2025 1 1 Specialty Diagnoses / Procedures Referred By Contac t Referred To Contact Dermatology Diagnoses Skin lesion Procedures CONSULT TO DERMATOLOGY Ynes Cameron, PAYAL.MIGRATORY GAME BIRD BIOLOGIST [address] [place] [address] Referral ID Status Reason Start Date Expiration Date Visits Requested Visits Authorized [id number] Ref Not Required PCP Requested Referral 04/04/2024 04/04/2025 1 1 Medications Administered Section Inactive Administered Medications - up to 3 most recent administrations Medication Order MAR Action Action Date Dose Rate Site lactated ringers iv infusion 5-30 mL/hr, INTRAVENOUS, CONTINUOUS, Starting on Thu02/05/22 at 1300, Until Thu02/05/22 at 1452, Preprocedure New Bag/Syringe/Bottle 02/05/2022 1:06 PM EDT 30 mL/hr 30 mL/hr lactated ringers iv infusion 125 mL/hr, INTRAVENOUS, CONTINUOUS, Starting on 02/05/22 at 1500, Until Eleonora 02/06/22 at 0414, Recovery or Phase I (only) Rate/Dose Change 02/05/2022 2:57 PM EDT 125 mL/hr 125 mL/hr Chief Complaint and Reason for Visit Chief Complaint RIB FRACTURES Reason for Visit Acute chest wall fabiola n Multiple fractures of ribs, right side, initial encounter for closed fracture Chief Complaint RIB FRACTURES RIB FRACTURES RIB FRACTURES RIB FRACTURES RIB FRACTURES Reason for Visit Acute chest wall fabiola n Multiple fractures of ribs, right side, initial encounter for closed fracture Chief Complaint RIB FRACTURES RIB FRACTURES RIB FRACTURES RIB FRACTURES RIB FRACTURES wound Reason for Visit Acute chest wall fabiola n Multiple fractures of ribs, right side, initial encounter for closed fracture Chief Complaint Admit Date abd pain October 23, 2024 1:08 am S/P OLESYA 10/31 (OLESYA) December 05, 2024 11:13am ESTABLISH February 10, 2025 12:5 9pm Reason for Visit Admit Date Diabetes mellitus December 05, 2024 11: 13am History of atrial fibrillation November 11:13am HTN (hypertension) December 05, 2024 11: 13am Preoperative cardiovascular examination December 05, 2024 11:13am Renal stone December 05, 2024 11: 13am Diabetes mellitus February 10, 2025 12:5 9pm History of atrial fibrillation January 12:59pm HTN (hypertension) February 10, 2025 12:5 9pm Chief Complaint 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, 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 7:00 am I48.91 - Unspecified atrial fibrillation February 20, 2025 8:39am 6 M FU June 07, 2025 1 :21pm Reason for Visit Admit Date Diabetes mellitus June 07, 2025 1 :21pm History of atrial fibrillation May 242024 1:21pm HTN (hypertension) June 07, 2025 1 :21pm Renal stone June 07, 2025 1 :21pm Additional Source Comments INFORMATION SOURCE (unrecogn ized section and content) DATE CREATED AUTHOR 02/16/2018 [facility] DATE CREATED AUTHOR AUTHOR'S ORGANIZ ATION 02/16/2018 [facility] DATE CREATED AUTHOR AUTHOR'S ORGANIZ ATION 03/30/2021 [facility] DATE CREATED AUTHOR AUTHOR'S ORGANIZ ATION 11/25/2024 [facility] DATE CREATED AUTHOR AUTHOR'S ORGANIZ ATION 05/28/2025 [facility] DATE CREATED AUTHOR AUTHOR'S ORGANIZ ATION 06/09/2025 [facility] DATE CREATED AUTHOR AUTHOR'S ORGANIZ ATION 06/23/2025 [facility] DATE CREATED AUTHOR AUTHOR'S ORGANIZ ATION 06/27/2025 [facility] Source Comments (unrecognize d section and content) In the event this informatio n is protected by the Federal Confidentiality of Alcohol and Drug Abuse Patient Records regulations: The Federal rules restrict any use of the information to criminally investigate or prosecute any alcohol or drug abuse patient.[facility] the event this information is protected by the Federal Confidentiality of Alcohol and Drug Abuse Patient Records regulations: The Federal rules restrict any use of the information to criminally investigate or prosecute any alcohol or drug abuse patient.[facility] HealthcareIn the event this information is protected by the Federal Confidentiality of Alcohol and Drug Abuse Patient Records regulations: The Federal rules restrict any use of the information to criminally investigate or prosecute any alcohol or drug abuse patient.[facility] HealthcareIn the event this information is protected by the Federal Confidentiality of Alcohol and Drug Abuse Patient Records regulations: The Federal rules restrict any use of the information to criminally investigate or prosecute any alcohol or drug abuse patient.[facility] HealthcareIn the event this information is protected by the Federal Confidentiality of Alcohol and Drug Abuse Patient Records regulations: The Federal rules restrict any use of the information to criminally investigate or prosecute any alcohol or drug abuse patient.[facility] HealthcareIn the event this information is protected by the Federal Confidentiality of Alcohol and Drug Abuse Patient Records regulations: The Federal rules restrict any use of the information to criminally investigate or prosecute any alcohol or drug abuse patient.[facility] HealthcareIn the event this information is protected by the Federal Confidentiality of Alcohol and Drug Abuse Patient Records regulations: The Federal rules restrict any use of the information to criminally investigate or prosecute any alcohol or drug abuse patient.[facility] HealthcareIn the event this information is protected by the Federal Confidentiality of Alcohol and Drug Abuse Patient Records regulations: The Federal rules restrict any use of the information to criminally investigate or prosecute any alcohol or drug abuse patient.[facility] HealthcareIn the event this information is protected by the Federal Confidentiality of Alcohol and Drug Abuse Patient Records regulations: The Federal rules restrict any use of the information to criminally investigate or prosecute any alcohol or drug abuse patient.[facility] HealthcareIn the event this information is protected by the Federal Confidentiality of Alcohol and Drug Abuse Patient Records regulations: The Federal rules restrict any use of the information to criminally investigate or prosecute any alcohol or drug abuse patient.[facility] HealthcareIn the event this information is protected by the Federal Confidentiality of Alcohol and Drug Abuse Patient Records regulations: The Federal rules restrict any use of the information to criminally investigate or prosecute any alcohol or drug abuse patient.[facility] HealthcareIn the event this information is protected by the Federal Confidentiality of Alcohol and Drug Abuse Patient Records regulations: The Federal rules restrict any use of the information to criminally investigate or prosecute any alcohol or drug abuse patient.[facility] HealthcareIn the event this information is protected by the Federal Confidentiality of Alcohol and Drug Abuse Patient Records regulations: The Federal rules restrict any use of the information to criminally investigate or prosecute any alcohol or drug abuse patient.[facility] HealthcareIn the event this information is protected by the Federal Confidentiality of Alcohol and Drug Abuse Patient Records regulations: The Federal rules restrict any use of the information to criminally investigate or prosecute any alcohol or drug abuse patient.[facility] HealthcareIn the event this information is protected by the Federal Confidentiality of Alcohol and Drug Abuse Patient Records regulations: The Federal rules restrict any use of the information to criminally investigate or prosecute any alcohol or drug abuse patient.[facility] HealthcareIn the event this information is protected by the Federal Confidentiality of Alcohol and Drug Abuse Patient Records regulations: The Federal rules restrict any use of the information to criminally investigate or prosecute any alcohol or drug abuse patient.[facility] HealthcareIn the event this information is protected by the Federal Confidentiality of Alcohol and Drug Abuse Patient Records regulations: The Federal rules restrict any use of the information to criminally investigate or prosecute any alcohol or drug abuse patient.[facility] HealthcareIn the event this information is protected by the Federal Confidentiality of Alcohol and Drug Abuse Patient Records regulations: The Federal rules restrict any use of the information to criminally investigate or prosecute any alcohol or drug abuse patient.[facility] HealthcareIn the event this information is protected by the Federal Confidentiality of Alcohol and Drug Abuse Patient Records regulations: The Federal rules restrict any use of the information to criminally investigate or prosecute any alcohol or drug abuse patient.[facility] HealthcareIn the event this information is protected by the Federal Confidentiality of Alcohol and Drug Abuse Patient Records regulations: The Federal rules restrict any use of the information to criminally investigate or prosecute any alcohol or drug abuse patient.[facility] HealthcareIn the event this information is protected by the Federal Confidentiality of Alcohol and Drug Abuse Patient Records regulations: The Federal rules restrict any use of the information to criminally investigate or prosecute any alcohol or drug abuse patient.[facility] HealthcareIn the event this information is protected by the Federal Confidentiality of Alcohol and Drug Abuse Patient Records regulations: The Federal rules restrict any use of the information to criminally investigate or prosecute any alcohol or drug abuse patient.[facility] HealthcareIn the event this information is protected by the Federal Confidentiality of Alcohol and Drug Abuse Patient Records regulations: The Federal rules restrict any use of the information to criminally investigate or prosecute any alcohol or drug abuse patient.[facility] HealthcareIn the event this information is protected by the Federal Confidentiality of Alcohol and Drug Abuse Patient Records regulations: The Federal rules restrict any use of the information to criminally investigate or prosecute any alcohol or drug abuse patient.[facility] HealthcareIn the event this information is protected by the Federal Confidentiality of Alcohol and Drug Abuse Patient Records regulations: The Federal rules restrict any use of the information to criminally investigate or prosecute any alcohol or drug abuse patient.[facility] HealthcareIn the event this information is protected by the Federal Confidentiality of Alcohol and Drug Abuse Patient Records regulations: The Federal rules restrict any use of the information to criminally investigate or prosecute any alcohol or drug abuse patient.[facility] HealthcareIn the event this information is protected by the Federal Confidentiality of Alcohol and Drug Abuse Patient Records regulations: The Federal rules restrict any use of the information to criminally investigate or prosecute any alcohol or drug abuse patient.[facility] HealthcareIn the event this information is protected by the Federal Confidentiality of Alcohol and Drug Abuse Patient Records regulations: The Federal rules restrict any use of the information to criminally investigate or prosecute any alcohol or drug abuse patient.[facility] HealthcareIn the event this information is protected by the Federal Confidentiality of Alcohol and Drug Abuse Patient Records regulations: The Federal rules restrict any use of the information to criminally investigate or prosecute any alcohol or drug abuse patient.[facility] HealthcareIn the event this information is protected by the Federal Confidentiality of Alcohol and Drug Abuse Patient Records regulations: The Federal rules restrict any use of the information to criminally investigate or prosecute any alcohol or drug abuse patient.[facility] HealthcareIn the event this information is protected by the Federal Confidentiality of Alcohol and Drug Abuse Patient Records regulations: The Federal rules restrict any use of the information to criminally investigate or prosecute any alcohol or drug abuse patient.[facility] HealthcareIn the event this information is protected by the Federal Confidentiality of Alcohol and Drug Abuse Patient Records regulations: The Federal rules restrict any use of the information to criminally investigate or prosecute any alcohol or drug abuse patient.[facility] HealthcareIn the event this information is protected by the Federal Confidentiality of Alcohol and Drug Abuse Patient Records regulations: The Federal rules restrict any use of the information to criminally investigate or prosecute any alcohol or drug abuse patient.[facility] HealthcareIn the event this information is protected by the Federal Confidentiality of Alcohol and Drug Abuse Patient Records regulations: The Federal rules restrict any use of the information to criminally investigate or prosecute any alcohol or drug abuse patient.[facility] HealthcareIn the event this information is protected by the Federal Confidentiality of Alcohol and Drug Abuse Patient Records regulations: The Federal rules restrict any use of the information to criminally investigate or prosecute any alcohol or drug abuse patient.[facility] HealthcareIn the event this information is protected by the Federal Confidentiality of Alcohol and Drug Abuse Patient Records regulations: The Federal rules restrict any use of the information to criminally investigate or prosecute any alcohol or drug abuse patient.[facility] HealthcareIn the event this information is protected by the Federal Confidentiality of Alcohol and Drug Abuse Patient Records regulations: The Federal rules restrict any use of the information to criminally investigate or prosecute any alcohol or drug abuse patient.[facility] HealthcareIn the event this information is protected by the Federal Confidentiality of Alcohol and Drug Abuse Patient Records regulations: The Federal rules restrict any use of the information to criminally investigate or prosecute any alcohol or drug abuse patient.[facility] HealthcareIn the event this information is protected by the Federal Confidentiality of Alcohol and Drug Abuse Patient Records regulations: The Federal rules restrict any use of the information to criminally investigate or prosecute any alcohol or drug abuse patient.[facility] HealthcareIn the event this information is protected by the Federal Confidentiality of Alcohol and Drug Abuse Patient Records regulations: The Federal rules restrict any use of the information to criminally investigate or prosecute any alcohol or drug abuse patient.[facility] HealthcareIn the event this information is protected by the Federal Confidentiality of Alcohol and Drug Abuse Patient Records regulations: The Federal rules restrict any use of the information to criminally investigate or prosecute any alcohol or drug abuse patient.[facility] HealthcareIn the event this information is protected by the Federal Confidentiality of Alcohol and Drug Abuse Patient Records regulations: The Federal rules restrict any use of the information to criminally investigate or prosecute any alcohol or drug abuse patient.[facility] HealthcareIn the event this information is protected by the Federal Confidentiality of Alcohol and Drug Abuse Patient Records regulations: The Federal rules restrict any use of the information to criminally investigate or prosecute any alcohol or drug abuse patient.[facility] HealthcareIn the event this information is protected by the Federal Confidentiality of Alcohol and Drug Abuse Patient Records regulations: The Federal rules restrict any use of the information to criminally investigate or prosecute any alcohol or drug abuse patient.[facility] HealthcareIn the event this information is protected by the Federal Confidentiality of Alcohol and Drug Abuse Patient Records regulations: The Federal rules restrict any use of the information to criminally investigate or prosecute any alcohol or drug abuse patient.[facility] HealthcareIn the event this information is protected by the Federal Confidentiality of Alcohol and Drug Abuse Patient Records regulations: The Federal rules restrict any use of the information to criminally investigate or prosecute any alcohol or drug abuse patient.[facility] HealthcareIn the event this information is protected by the Federal Confidentiality of Alcohol and Drug Abuse Patient Records regulations: The Federal rules restrict any use of the information to criminally investigate or prosecute any alcohol or drug abuse patient.[facility] HealthcareIn the event this information is protected by the Federal Confidentiality of Alcohol and Drug Abuse Patient Records regulations: The Federal rules restrict any use of the information to criminally investigate or prosecute any alcohol or drug abuse patient.[facility] HealthcareIn the event this information is protected by the Federal Confidentiality of Alcohol and Drug Abuse Patient Records regulations: The Federal rules restrict any use of the information to criminally investigate or prosecute any alcohol or drug abuse patient.[facility] HealthcareIn the event this information is protected by the Federal Confidentiality of Alcohol and Drug Abuse Patient Records regulations: The Federal rules restrict any use of the information to criminally investigate or prosecute any alcohol or drug abuse patient.[facility] HealthcareIn the event this information is protected by the Federal Confidentiality of Alcohol and Drug Abuse Patient Records regulations: The Federal rules restrict any use of the information to criminally investigate or prosecute any alcohol or drug abuse patient.[facility] HealthcareIn the event this information is protected by the Federal Confidentiality of Alcohol and Drug Abuse Patient Records regulations: The Federal rules restrict any use of the information to criminally investigate or prosecute any alcohol or drug abuse patient.[facility] HealthcareIn the event this information is protected by the Federal Confidentiality of Alcohol and Drug Abuse Patient Records regulations: The Federal rules restrict any use of the information to criminally investigate or prosecute any alcohol or drug abuse patient.[facility] HealthcareIn the event this information is protected by the Federal Confidentiality of Alcohol and Drug Abuse Patient Records regulations: The Federal rules restrict any use of the information to criminally investigate or prosecute any alcohol or drug abuse patient.[facility] HealthcareIn the event this information is protected by the Federal Confidentiality of Alcohol and Drug Abuse Patient Records regulations: The Federal rules restrict any use of the information to criminally investigate or prosecute any alcohol or drug abuse patient.[facility] HealthcareIn the event this information is protected by the Federal Confidentiality of Alcohol and Drug Abuse Patient Records regulations: The Federal rules restrict any use of the information to criminally investigate or prosecute any alcohol or drug abuse patient.[facility] HealthcareIn the event this information is protected by the Federal Confidentiality of Alcohol and Drug Abuse Patient Records regulations: The Federal rules restrict any use of the information to criminally investigate or prosecute any alcohol or drug abuse patient.[facility] HealthcareIn the event this information is protected by the Federal Confidentiality of Alcohol and Drug Abuse Patient Records regulations: The Federal rules restrict any use of the information to criminally investigate or prosecute any alcohol or drug abuse patient.[facility] HealthcareIn the event this information is protected by the Federal Confidentiality of Alcohol and Drug Abuse Patient Records regulations: The Federal rules restrict any use of the information to criminally investigate or prosecute any alcohol or drug abuse patient.[facility] HealthcareIn the event this information is protected by the Federal Confidentiality of Alcohol and Drug Abuse Patient Records regulations: The Federal rules restrict any use of the information to criminally investigate or prosecute any alcohol or drug abuse patient.[facility] HealthcareIn the event this information is protected by the Federal Confidentiality of Alcohol and Drug Abuse Patient Records regulations: The Federal rules restrict any use of the information to criminally investigate or prosecute any alcohol or drug abuse patient.[facility] HealthcareIn the event this information is protected by the Federal Confidentiality of Alcohol and Drug Abuse Patient Records regulations: The Federal rules restrict any use of the information to criminally investigate or prosecute any alcohol or drug abuse patient.[facility] HealthcareIn the event this information is protected by the Federal Confidentiality of Alcohol and Drug Abuse Patient Records regulations: The Federal rules restrict any use of the information to criminally investigate or prosecute any alcohol or drug abuse patient.[facility] HealthcareIn the event this information is protected by the Federal Confidentiality of Alcohol and Drug Abuse Patient Records regulations: The Federal rules restrict any use of the information to criminally investigate or prosecute any alcohol or drug abuse patient.[facility] HealthcareIn the event this information is protected by the Federal Confidentiality of Alcohol and Drug Abuse Patient Records regulations: The Federal rules restrict any use of the information to criminally investigate or prosecute any alcohol or drug abuse patient.[facility] HealthcareIn the event this information is protected by the Federal Confidentiality of Alcohol and Drug Abuse Patient Records regulations: The Federal rules restrict any use of the information to criminally investigate or prosecute any alcohol or drug abuse patient.[facility] HealthcareIn the event this information is protected by the Federal Confidentiality of Alcohol and Drug Abuse Patient Records regulations: The Federal rules restrict any use of the information to criminally investigate or prosecute any alcohol or drug abuse patient.[facility] HealthcareIn the event this information is protected by the Federal Confidentiality of Alcohol and Drug Abuse Patient Records regulations: The Federal rules restrict any use of the information to criminally investigate or prosecute any alcohol or drug abuse patient.[facility] HealthcareIn the event this information is protected by the Federal Confidentiality of Alcohol and Drug Abuse Patient Records regulations: The Federal rules restrict any use of the information to criminally investigate or prosecute any alcohol or drug abuse patient.[facility] HealthcareIn the event this information is protected by the Federal Confidentiality of Alcohol and Drug Abuse Patient Records regulations: The Federal rules restrict any use of the information to criminally investigate or prosecute any alcohol or drug abuse patient.[facility] HealthcareIn the event this information is protected by the Federal Confidentiality of Alcohol and Drug Abuse Patient Records regulations: The Federal rules restrict any use of the information to criminally investigate or prosecute any alcohol or drug abuse patient.[facility] HealthcareIn the event this information is protected by the Federal Confidentiality of Alcohol and Drug Abuse Patient Records regulations: The Federal rules restrict any use of the information to criminally investigate or prosecute any alcohol or drug abuse patient.[facility] HealthcareIn the event this information is protected by the Federal Confidentiality of Alcohol and Drug Abuse Patient Records regulations: The Federal rules restrict any use of the information to criminally investigate or prosecute any alcohol or drug abuse patient.[facility] HealthcareIn the event this information is protected by the Federal Confidentiality of Alcohol and Drug Abuse Patient Records regulations: The Federal rules restrict any use of the information to criminally investigate or prosecute any alcohol or drug abuse patient.[facility] HealthcareIn the event this information is protected by the Federal Confidentiality of Alcohol and Drug Abuse Patient Records regulations: The Federal rules restrict any use of the information to criminally investigate or prosecute any alcohol or drug abuse patient.[facility] HealthcareIn the event this information is protected by the Federal Confidentiality of Alcohol and Drug Abuse Patient Records regulations: The Federal rules restrict any use of the information to criminally investigate or prosecute any alcohol or drug abuse patient.[facility] HealthcareIn the event this information is protected by the Federal Confidentiality of Alcohol and Drug Abuse Patient Records regulations: The Federal rules restrict any use of the information to criminally investigate or prosecute any alcohol or drug abuse patient.[facility] HealthcareIn the event this information is protected by the Federal Confidentiality of Alcohol and Drug Abuse Patient Records regulations: The Federal rules restrict any use of the information to criminally investigate or prosecute any alcohol or drug abuse patient.[facility] HealthcareIn the event this information is protected by the Federal Confidentiality of Alcohol and Drug Abuse Patient Records regulations: The Federal rules restrict any use of the information to criminally investigate or prosecute any alcohol or drug abuse patient.[facility] HealthcareIn the event this information is protected by the Federal Confidentiality of Alcohol and Drug Abuse Patient Records regulations: The Federal rules restrict any use of the information to criminally investigate or prosecute any alcohol or drug abuse patient.[facility] HealthcareIn the event this information is protected by the Federal Confidentiality of Alcohol and Drug Abuse Patient Records regulations: The Federal rules restrict any use of the information to criminally investigate or prosecute any alcohol or drug abuse patient.[facility] HealthcareIn the event this information is protected by the Federal Confidentiality of Alcohol and Drug Abuse Patient Records regulations: The Federal rules restrict any use of the information to criminally investigate or prosecute any alcohol or drug abuse patient.[facility] HealthcareIn the event this information is protected by the Federal Confidentiality of Alcohol and Drug Abuse Patient Records regulations: The Federal rules restrict any use of the information to criminally investigate or prosecute any alcohol or drug abuse patient.[facility] HealthcareIn the event this information is protected by the Federal Confidentiality of Alcohol and Drug Abuse Patient Records regulations: The Federal rules restrict any use of the information to criminally investigate or prosecute any alcohol or drug abuse patient.[facility] HealthcareIn the event this information is protected by the Federal Confidentiality of Alcohol and Drug Abuse Patient Records regulations: The Federal rules restrict any use of the information to criminally investigate or prosecute any alcohol or drug abuse patient.[facility] HealthcareIn the event this information is protected by the Federal Confidentiality of Alcohol and Drug Abuse Patient Records regulations: The Federal rules restrict any use of the information to criminally investigate or prosecute any alcohol or drug abuse patient.[facility] HealthcareIn the event this information is protected by the Federal Confidentiality of Alcohol and Drug Abuse Patient Records regulations: The Federal rules restrict any use of the information to criminally investigate or prosecute any alcohol or drug abuse patient.[facility] HealthcareIn the event this information is protected by the Federal Confidentiality of Alcohol and Drug Abuse Patient Records regulations: The Federal rules restrict any use of the information to criminally investigate or prosecute any alcohol or drug abuse patient.[facility] HealthcareIn the event this information is protected by the Federal Confidentiality of Alcohol and Drug Abuse Patient Records regulations: The Federal rules restrict any use of the information to criminally investigate or prosecute any alcohol or drug abuse patient.[facility] HealthcareIn the event this information is protected by the Federal Confidentiality of Alcohol and Drug Abuse Patient Records regulations: The Federal rules restrict any use of the information to criminally investigate or prosecute any alcohol or drug abuse patient.[facility] HealthcareIn the event this information is protected by the Federal Confidentiality of Alcohol and Drug Abuse Patient Records regulations: The Federal rules restrict any use of the information to criminally investigate or prosecute any alcohol or drug abuse patient.[facility] HealthcareIn the event this information is protected by the Federal Confidentiality of Alcohol and Drug Abuse Patient Records regulations: The Federal rules restrict any use of the information to criminally investigate or prosecute any alcohol or drug abuse patient.[facility] HealthcareIn the event this information is protected by the Federal Confidentiality of Alcohol and Drug Abuse Patient Records regulations: The Federal rules restrict any use of the information to criminally investigate or prosecute any alcohol or drug abuse patient.[facility] HealthcareIn the event this information is protected by the Federal Confidentiality of Alcohol and Drug Abuse Patient Records regulations: The Federal rules restrict any use of the information to criminally investigate or prosecute any alcohol or drug abuse patient.[facility] HealthcareIn the event this information is protected by the Federal Confidentiality of Alcohol and Drug Abuse Patient Records regulations: The Federal rules restrict any use of the information to criminally investigate or prosecute any alcohol or drug abuse patient.[facility] HealthcareIn the event this information is protected by the Federal Confidentiality of Alcohol and Drug Abuse Patient Records regulations: The Federal rules restrict any use of the information to criminally investigate or prosecute any alcohol or drug abuse patient.[facility] HealthcareIn the event this information is protected by the Federal Confidentiality of Alcohol and Drug Abuse Patient Records regulations: The Federal rules restrict any use of the information to criminally investigate or prosecute any alcohol or drug abuse patient.[facility] HealthcareIn the event this information is protected by the Federal Confidentiality of Alcohol and Drug Abuse Patient Records regulations: The Federal rules restrict any use of the information to criminally investigate or prosecute any alcohol or drug abuse patient.[facility] HealthcareIn the event this information is protected by the Federal Confidentiality of Alcohol and Drug Abuse Patient Records regulations: The Federal rules restrict any use of the information to criminally investigate or prosecute any alcohol or drug abuse patient.[facility] HealthcareIn the event this information is protected by the Federal Confidentiality of Alcohol and Drug Abuse Patient Records regulations: The Federal rules restrict any use of the information to criminally investigate or prosecute any alcohol or drug abuse patient.[facility] HealthcareIn the event this information is protected by the Federal Confidentiality of Alcohol and Drug Abuse Patient Records regulations: The Federal rules restrict any use of the information to criminally investigate or prosecute any alcohol or drug abuse patient.[facility] HealthcareIn the event this information is protected by the Federal Confidentiality of Alcohol and Drug Abuse Patient Records regulations: The Federal rules restrict any use of the information to criminally investigate or prosecute any alcohol or drug abuse patient.[facility] HealthcareIn the event this information is protected by the Federal Confidentiality of Alcohol and Drug Abuse Patient Records regulations: The Federal rules restrict any use of the information to criminally investigate or prosecute any alcohol or drug abuse patient.[facility] HealthcareIn the event this information is protected by the Federal Confidentiality of Alcohol and Drug Abuse Patient Records regulations: The Federal rules restrict any use of the information to criminally investigate or prosecute any alcohol or drug abuse patient.[facility] HealthcareIn the event this information is protected by the Federal Confidentiality of Alcohol and Drug Abuse Patient Records regulations: The Federal rules restrict any use of the information to criminally investigate or prosecute any alcohol or drug abuse patient.[facility] HealthcareIn the event this information is protected by the Federal Confidentiality of Alcohol and Drug Abuse Patient Records regulations: The Federal rules restrict any use of the information to criminally investigate or prosecute any alcohol or drug abuse patient.[facility] HealthcareIn the event this information is protected by the Federal Confidentiality of Alcohol and Drug Abuse Patient Records regulations: The Federal rules restrict any use of the information to criminally investigate or prosecute any alcohol or drug abuse patient.[facility] HealthcareIn the event this information is protected by the Federal Confidentiality of Alcohol and Drug Abuse Patient Records regulations: The Federal rules restrict any use of the information to criminally investigate or prosecute any alcohol or drug abuse patient.[facility] HealthcareIn the event this information is protected by the Federal Confidentiality of Alcohol and Drug Abuse Patient Records regulations: The Federal rules restrict any use of the information to criminally investigate or prosecute any alcohol or drug abuse patient.[facility] HealthcareIn the event this information is protected by the Federal Confidentiality of Alcohol and Drug Abuse Patient Records regulations: The Federal rules restrict any use of the information to criminally investigate or prosecute any alcohol or drug abuse patient.[facility] HealthcareIn the event this information is protected by the Federal Confidentiality of Alcohol and Drug Abuse Patient Records regulations: The Federal rules restrict any use of the information to criminally investigate or prosecute any alcohol or drug abuse patient.[facility] HealthcareIn the event this information is protected by the Federal Confidentiality of Alcohol and Drug Abuse Patient Records regulations: The Federal rules restrict any use of the information to criminally investigate or prosecute any alcohol or drug abuse patient.[facility] HealthcareIn the event this information is protected by the Federal Confidentiality of Alcohol and Drug Abuse Patient Records regulations: The Federal rules restrict any use of the information to criminally investigate or prosecute any alcohol or drug abuse patient.[facility] HealthcareIn the event this information is protected by the Federal Confidentiality of Alcohol and Drug Abuse Patient Records regulations: The Federal rules restrict any use of the information to criminally investigate or prosecute any alcohol or drug abuse patient.[facility] HealthcareIn the event this information is protected by the Federal Confidentiality of Alcohol and Drug Abuse Patient Records regulations: The Federal rules restrict any use of the information to criminally investigate or prosecute any alcohol or drug abuse patient.[facility] HealthcareIn the event this information is protected by the Federal Confidentiality of Alcohol and Drug Abuse Patient Records regulations: The Federal rules restrict any use of the information to criminally investigate or prosecute any alcohol or drug abuse patient.[facility] HealthcareIn the event this information is protected by the Federal Confidentiality of Alcohol and Drug Abuse Patient Records regulations: The Federal rules restrict any use of the information to criminally investigate or prosecute any alcohol or drug abuse patient.[facility] HealthcareIn the event this information is protected by the Federal Confidentiality of Alcohol and Drug Abuse Patient Records regulations: The Federal rules restrict any use of the information to criminally investigate or prosecute any alcohol or drug abuse patient.[facility] HealthcareIn the event this information is protected by the Federal Confidentiality of Alcohol and Drug Abuse Patient Records regulations: The Federal rules restrict any use of the information to criminally investigate or prosecute any alcohol or drug abuse patient.[facility] HealthcareIn the event this information is protected by the Federal Confidentiality of Alcohol and Drug Abuse Patient Records regulations: The Federal rules restrict any use of the information to criminally investigate or prosecute any alcohol or drug abuse patient.[facility] HealthcareIn the event this information is protected by the Federal Confidentiality of Alcohol and Drug Abuse Patient Records regulations: The Federal rules restrict any use of the information to criminally investigate or prosecute any alcohol or drug abuse patient.[facility] HealthcareIn the event this information is protected by the Federal Confidentiality of Alcohol and Drug Abuse Patient Records regulations: The Federal rules restrict any use of the information to criminally investigate or prosecute any alcohol or drug abuse patient.[facility] HealthcareIn the event this information is protected by the Federal Confidentiality of Alcohol and Drug Abuse Patient Records regulations: The Federal rules restrict any use of the information to criminally investigate or prosecute any alcohol or drug abuse patient.[facility] Reason for Visit (unrecogniz ed section and content) Reason Comments Medication Request Reason Comments Yearly Exam Reason Onset Date Comments Refill Request 02/17/2022 Reason Onset Date Comments Refill Request 02/26/2022 Reason Onset Date Comments Refill Request 03/27/2022 Reason Comments Orders Reason Onset Date Comments Refill Request 05/12/2022 Reason Onset Date Comments Refill Request 05/22/2022 Reason Onset Date Comments Refill Request 07/04/2022 Reason Comments Patient Update Reason Onset Date Comments Refill Request 08/07/2022 Reason Onset Date Comments Refill Request 08/14/2022 Reason Comments Recheck [facility] x 3 days, transf erred to [place] x 3 days; fell at home and fractured 3 ribs; now has open sores on her bottom Reason Onset Date Comments Refill Request 09/01/2022 Reason Comments PT Eval Specialty Diagnoses / Procedures Referred By Hank brothers Referred To Contact [facility] Diagnoses Pain in joint of right hip Procedures CONSULT TO PHYSICAL THERAPY PHYSICAL THERAPY EVALUATION HIGH COMPLEX 45 MINS Valerie Yeboah PA-C [address] [place] [address] [facility] [place] [address] [place] [address] Referral ID Status Reason Start Date Expiration Date Visits Requested Visits Authorized [id number] Authorized Auto-Generat ed Referral 08/24/2022 08/23/2023 20 20 Reason Comments Physical Therapy Specialty Diagnoses / Procedures Referred By Hank brothers Referred To Contact [facility] Diagnoses Pain in joint of right hip Procedures CONSULT TO PHYSICAL THERAPY PHYSICAL THERAPY EVALUATION HIGH COMPLEX 45 MINS Valerie Yeboah PA-C [address] [place] [address] [facility] [place] [address] [place] [address] Reason Onset Date Comments Refill Request 11/11/2022 Reason Onset Date Comments Refill Request 02/13/2023 Reason Onset Date Comments Refill Request 02/23/2023 Reason Comments Follow Up 6 mth follow up Reason Onset Date Comments Refill Request 04/15/2023 Reason Onset Date Comments Refill Request 05/10/2023 Reason Onset Date Comments Refill Request 05/12/2023 Reason Comments Follow Up 6 month Reason Comments Follow Up Blood pressure Reason Comments Medication Problem Reason Comments Erroneous encounter-disregard Reason Comments Forms Reason Onset Date Comments Refill Request 01/25/2024 Reason Onset Date Comments Population Health Navigation Outreach 02/10/2024 Reason Onset Date Comments Refill Request 02/10/2024 Reason Onset Date Comments Refill Request 03/11/2024 Reason Onset Date Comments Refill Request 03/29/2024 Reason Comments Results Reason Comments 6 Month Exam Reason Onset Date Comments Refill Request 04/22/2024 Reason Comments Coding And Reimbursement Specialist Exam Specialty Diagnoses / Procedures Referred By Hank brothers Referred To Contact Gynecology Diagnoses Endometrial cancer (HCC) History of cervical cancer Procedures CONSULT TO GYNECOLOGY OFFICE/OUTPATIENT NEW HIGH MDM 60 MINUTES Ynes Cameron APRN.CELENA [address] [place] [address] Referral ID Status Reason Start Date Expiration Date V isits Requested Visits Authorized [id number] Closed PCP Requested Referral Auto-Generated Referral 04/04/2024 04/04/2025 1 1 Reason Onset Date Comments Refill Request 10/23/2023 Reason Onset Date Comments Refill Request 07/04/2024 Reason Onset Date Comments Refill Request 07/28/2024 Reason Comments Home Care MD to Follow Reason Comments Home Care Confirmation call Reason Onset Date Comments Transition Of Care 11/01/2024 D/C 3/10 [facility] Reason Onset Date Comments Escalation of Care 11/02/2024 Reason Comments Home Care Update Reason Comments Hospital Follow Up Reason Comments Orders Reason Comments Home Care Nephrostomy manageme nt orders Reason Comments Hospital F/U Reason Onset Date Comments Transitional Care Management 11/14/2024 TCM Initial Discharge: 10/31/24 Reason Comments Home Care Pt issues Reason Comments Refill Request Reason Onset Date Comments Refill Request 11/21/2024 Reason Comments Hematuria Reason Comments Change In Bowel Habits Consistent fecal urgency after eating.Seen in the ER 10/23/24 Specialty Diagnoses / Procedures Referred By Hank brothers Referred To Contact Gastroenterology Diagnoses Change in bowel habits Procedures CONSULT TO GASTROENTEROLOGY OFFICE/OUTPATIENT [facility] MDM 60 MINUTES Ynes Cameron, PAYAL.MIGRATORY GAME BIRD BIOLOGIST [address] [place] [address] Phone: tel: fax: Referral ID Status Reason Start Date Expiration Date V isits Requested Visits Authorized [id number] Closed PCP Requested Referral 10/05/2024 10/05/2025 1 1 Reason Onset Date Comments Refill Request 11/30/2024 Reason Comments Patient Question Reason Onset Date Comments Follow Up 12/12/2024 Reason Comments Follow Up Reason Onset Date Comments Refill Request 12/26/2024 Reason Comments Appointment Colonoscopy Reason Onset Date Comments Refill Request 01/24/2025 Reason Comments Kidney Stones 4 week follow up Reason Onset Date Comments Refill Request 02/02/2025 Reason Onset Date Comments Refill Request 02/05/2025 Reason Comments Follow Up Reason Onset Date Comments Refill Request 03/08/2025 Reason Comments New Patient Vivid dreams Specialty Diagnoses / Procedures Referred By Hank brothers Referred To Contact Neurology Diagnoses Other symptoms and signs involving the nervous system Visual hallucination Sleep disorder Procedures CONSULT TO NEUROLOGY OFFICE/OUTPATIENT [facility] MDM 60 MINUTES Bobby Grady MD [address] [place] [address] Phone: tel: fax: Referral ID Status Reason Start Date Expiration Date V isits Requested Visits Authorized [id number] Closed PCP Requested Referral 03/01/2025 03/01/2026 1 1 Reason Onset Date Comments Refill Request 04/02/2025 Reason Comments 6 Month Exam Reason Comments Results Iron levels Care Teams (unrecognized sec tion and content) Power Manager Relationship Specialty Start Date End Date Bobby Grady MD [address] [place] [address] PCP - General Family Practice 11/20/14 Power Manager Relationship Specialty Start Date End Date Bobby Grady MD [address] [place] [address] PCP - General Family Practice 11/20/14 Power Manager Relationship Specialty Start Date End Date Bobby Grady MD [address] [place] [address] PCP - General Family Practice 11/20/14 Power Manager Relationship Specialty Start Date End Date Bobby Grady MD [address] [facility] [place] [address] PCP - General Family Practice 11/20/14 Power Manager Relationship Specialty Start Date End Date Bobby Grady MD [address] [place] [address] PCP - General Family Practice 11/20/14 Power Manager Relationship Specialty Start Date End Date Bobby Grady MD [address] [place] [address] PCP - General Family Practice 11/20/14 Power Manager Relationship Specialty Start Date End Date Bobby Grady MD [address] [place] [address] PCP - General Family Practice 11/20/14 Power Manager Relationship Specialty Start Date End Date Bobby Grady MD [address] [place] [address] PCP - General Family Practice 11/20/14 Power Manager Relationship Specialty Start Date End Date Bobby Grady MD [address] [place] [address] PCP - General Family Medicine 11/20/14 Power Manager Relationship Specialty Start Date End Date Bobby Grady MD [address] [place] [address] PCP - General Family Medicine 11/20/14 Power Manager Relationship Specialty Start Date End Date Bobby Grady MD [address] [place] [address] PCP - General Family Medicine 11/20/14 Power Manager Relationship Specialty Start Date End Date Bobby Grady MD [address] [place] [address] PCP - General Family Medicine 11/20/14 Power Manager Relationship Specialty Start Date End Date Bobby Grady MD [address] [place] [address] PCP - General Family Medicine 11/20/14 Team Status: Active Member Role Status Dates Dr. Bobby Grady MD Family Provider Active Dr. Bobby Grady MD Primary Care Provider Active Team Status: Active Member Role Status Dates Dr. Bobby Grady MD Primary Care Provider Active Dr. Eva Isaac DO Emergency Provider Active Dr. Mary Lamas MD Admit Provider, Atte nding Provider, Other Provider Active Team Status: Active Member Role Status Dates Dr. Bobby Grady MD Primary Care Provider Active Dr. Eva Isaac DO Emergency Provider Active Dr. Mary Lamas MD Admit Provider, Other Provider Act renetta Dr. Carlo Carbone MD Attending Provider, Other Provider Active Team Status: Inactive Member Role Status Dates Dr. Bobby Grady MD Primary Care Provider Active Dr. Eva Isaac DO Emergency Provider Active Dr. Mary Lamas MD Admit Provider, Other Provider Act renetta Dr. Carlo Carbone MD Attending Provider Active Team Status: Inactive Member Role Status Dates Dr. Bobby Grady MD Primary Care Provider Active Dr. Dejon Wolfe MD Attending Provider Active Power Manager Relationship Specialty Start Date End Date Bobby Grady MD [address] [place], [place] [id number] PCP - General Family Medicine 11/20/14 Power Manager Relationship Specialty Start Date End Date Bobby Grady MD [address] [place] [address] PCP - General Family Medicine 11/20/14 Power Manager Relationship Specialty Start Date End Date Bobby Grady MD [address] [place] [address] PCP - General Family Medicine 11/20/14 Power Manager Relationship Specialty Start Date End Date Bobby Grady MD [address] [place] [address] PCP - General Family Medicine 11/20/14 Power Manager Relationship Specialty Start Date End Date Bobby Grady MD [address] [place] [address] PCP - General Family Medicine 11/20/14 Power Manager Relationship Specialty Start Date End Date Bobby Grady MD [address] [place] [address] PCP - General Family Medicine 11/20/14 Power Manager Relationship Specialty Start Date End Date Bobby Grady MD [address] [place] [address] PCP - General Family Medicine 11/20/14 Power Manager Relationship Specialty Start Date End Date Bobby Grady MD [address] [place] [address] PCP - General Family Medicine 11/20/14 Power Manager Relationship Specialty Start Date End Date Bobby Grady MD [address] [place] [address] PCP - General Family Medicine 11/20/14 Power Manager Relationship Specialty Start Date End Date Bobby Grady MD [address] [place] [address] PCP - General Family Medicine 11/20/14 Power Manager Relationship Specialty Start Date End Date Bobby Grady MD [address] [place] [address] PCP - General Family Medicine 11/20/14 Power Manager Relationship Specialty Start Date End Date Bobby Grady MD [address] [place] [address] PCP - General Family Medicine 11/20/14 Power Manager Relationship Specialty Start Date End Date Bobby Grady MD [address] [place] [address] PCP - General Family Medicine 11/20/14 Power Manager Relationship Specialty Start Date End Date Bobby Grady MD [address] [place] [address] PCP - General Family Medicine 11/20/14 Power Manager Relationship Specialty Start Date End Date Bobby Grady MD [address] [place] [address] PCP - General Family Medicine 11/20/14 Power Manager Relationship Specialty Start Date End Date Bobby Grady MD [address] [place] [address] PCP - General Family Medicine 11/20/14 Power Manager Relationship Specialty Start Date End Date Bobby Grady MD [address] [place] [address] PCP - General Family Medicine 11/20/14 Power Manager Relationship Specialty Start Date End Date Bobby Grady MD [address] [place] [address] PCP - General Family Medicine 11/20/14 Power Manager Relationship Specialty Start Date End Date Bobby Grady MD [address] [place] [address] PCP - General Family Medicine 11/20/14 Power Manager Relationship Specialty Start Date End Date Bobby Grady MD [address] [place] [address] PCP - General Family Medicine 11/20/14 Power Manager Relationship Specialty Start Date End Date Bobby Grady MD [address] [place] [address] PCP - General Family Medicine 11/20/14 Power Manager Relationship Specialty Start Date End Date Bobby Grady MD [address] [place] [address] PCP - General Family Medicine 11/20/14 Power Manager Relationship Specialty Start Date End Date Bobby Grady MD [address] [place] [address] PCP - General Family Medicine 11/20/14 Power Manager Relationship Specialty Start Date End Date Bobby Grady MD [address] [place] [address] PCP - General Family Medicine 11/20/14 Power Manager Relationship Specialty Start Date End Date Bobby Grady MD [address] [place] [address] PCP - General Family Medicine 11/20/14 Ynes Cameron APRN.MIGRATORY GAME BIRD BIOLOGIST [address] [facility] [place] [address] Senior Electronics Technician [facility] 08/01/24 Amparo Crowley APRN.MIGRATORY GAME BIRD BIOLOGIST [address] [place] [address] Senior Electronics Technician [facility] 08/01/24 Power Manager Relationship Specialty Start Date End Date Bobby Grady MD [address] [place] [address] PCP - General Family Medicine 11/20/14 Ynes Cameron, GOLF CLUB MANAGER.MIGRATORY GAME BIRD BIOLOGIST [address] [place] [address] Senior Electronics Technician [facility] 08/01/24 Amparo Crowley GOLF CLUB MANAGER.MIGRATORY GAME BIRD BIOLOGIST [address] [place] [address] Senior Electronics Technician [facility] 08/01/24 Bobby Grady MD [address] [place] [address] Home Care Provider Family Medicine 10/31/24 Fritz Trejo MD [address] [place] [address] Referring 10/31/24 Rogers Hernandez, RN [address] [place] [address] Make Ready Worker Post Acute Care 10/31/24 Power Manager Relationship Specialty Start Date End Date Bobby Grady MD [address] [place] [address] PCP - General Family Medicine 11/20/14 Ynes Cameron, GOLF CLUB MANAGER.MIGRATORY GAME BIRD BIOLOGIST [address] [place] [address] Senior Electronics Technician Family Medicine 08/01/24 Amparo Crowley APRN.MIGRATORY GAME BIRD BIOLOGIST [address] [place] [address] Senior Electronics Technician Family Medicine 08/01/24 Bobby Grady MD [address] [place] [address] Home Care Provider Family Medicine 10/31/24 Fritz Trejo MD [address] [place] [address] Referring 10/31/24 Rogers Hernandez, SANTO [address] [place], [place] [id number] Make Ready Worker Post Acute Care 10/31/24 Power Manager Relationship Specialty Start Date End Date Bobby Grady MD [address] [place] [address] PCP - General Family Medicine 11/20/14 Ynes Cameron, GOLF CLUB MANAGER.MIGRATORY GAME BIRD BIOLOGIST [address] [place] [address] Senior Electronics Technician Family Medicine 08/01/24 Amparo Crowley GOLF CLUB MANAGER.MIGRATORY GAME BIRD BIOLOGIST [address] [place] [address] Senior Electronics Technician Family Medicine 08/01/24 Bobby Grady MD [address] [place] [address] Home Care Provider Family Medicine 10/31/24 Fritz Trejo MD [address] [place] [address] Referring 10/31/24 Rogers Hernandez, SANTO [address] [place], [place] [phone] Make Ready Worker Post Acute Care 10/31/24 Viridiana Trujillo, vamp cut out worker Lead Php Developer 10/31/24 11/13/24 Power Manager Relationship Specialty Start Date End Date Bobby Grady MD [address] [place], [place] [address] PCP - General Family Medicine 11/20/14 Ynes Cameron APRN.MIGRATORY GAME BIRD BIOLOGIST [address] [place] [address] Senior Electronics Technician Family Medicine 08/01/24 Amparo Crowley GOLF CLUB MANAGER.MIGRATORY GAME BIRD BIOLOGIST [address] [place] [address] Senior Electronics Technician Family Medicine 08/01/24 Bobby Grady MD [address] [place] [address] Home Care Provider Family Medicine 10/31/24 Fritz Trejo MD [address] [place] [address] Referring 10/31/24 Rogers Hernandez RN [address] [place], [place] [id number] Make Ready Worker Post Acute Care 10/31/24 Viridiana Trujillo RN Primary Care Lead Php Developer 10/31/24 11/13/24 Power Manager Relationship Specialty Start Date End Date Bobby Grady MD [address] [place] [address] PCP - General Family Medicine 11/20/14 Ynes Cameron, PAYAL.MIGRATORY GAME BIRD BIOLOGIST [address] [place] [address] Senior Electronics Technician Family Medicine 08/01/24 Amparo Crowley GOLF CLUB MANAGER.MIGRATORY GAME BIRD BIOLOGIST [address] [place] [address] Senior Electronics Technician Family Medicine 08/01/24 Bobby Grady MD [address] [place] [address] Home Care Provider Family Medicine 10/31/24 Fritz Trejo MD [address] [facility] [place] [address] Referring 10/31/24 Rogers Hernandez, SANTO [address] [place], [place] [id number] Make Ready Worker Post Acute Care 10/31/24 Viridiana Trujillo, vamp cut out worker Lead Php Developer 10/31/24 11/13/24 Power Manager Relationship Specialty Start Date End Date Bobby Grady MD [address] [place] [address] PCP - General Family Medicine 11/20/14 Ynes Cameron, GOLF CLUB MANAGER.MIGRATORY GAME BIRD BIOLOGIST [address] [place] [address] Senior Electronics Technician Family Medicine 08/01/24 Amparo Crowley GOLF CLUB MANAGER.MIGRATORY GAME BIRD BIOLOGIST [address] [place] [address] Senior Electronics Technician Family Medicine 08/01/24 Bobby Grady MD [address] [place], [place] [address] Home Care Provider Family Medicine 10/31/24 Fritz Trejo MD [address] [place] [address] Referring 10/31/24 Rogers Hernandez, SANTO [address] [place], [place] [phone] Make Ready Worker Post Acute Care 10/31/24 Viridiana Trujillo RN Primary Care Lead Php Developer 10/31/24 11/13/24 Power Manager Relationship Specialty Start Date End Date Bobby Grady MD [address] [place] [address] PCP - General Family Medicine 11/20/14 Ynes Cameron, GOLF CLUB MANAGER.MIGRATORY GAME BIRD BIOLOGIST [address] [place] [address] Senior Electronics Technician Family Medicine 08/01/24 Amparo Crowley, GOLF CLUB MANAGER.MIGRATORY GAME BIRD BIOLOGIST [address] [place] [address] Senior Electronics Technician [facility] 08/01/24 Bobby Grady MD [address] [place] [address] Home Care Provider Family Medicine 10/31/24 Fritz Trejo MD [address] [place] [address] Referring 10/31/24 Rogers Hernandez RN [address] [place], [place] [id number] Make Ready Worker Post Acute Care 10/31/24 Viridiana Trujillo, vamp cut out worker Lead Php Developer 10/31/24 11/13/24 Power Manager Relationship Specialty Start Date End Date Bobby Grady MD [address] [place] [address] PCP - General Family Medicine 11/20/14 Ynes Cameron, GOLF CLUB MANAGER.MIGRATORY GAME BIRD BIOLOGIST [address] [place] [address] Senior Electronics Technician Family Medicine 08/01/24 Amparo Crowley GOLF CLUB MANAGER.MIGRATORY GAME BIRD BIOLOGIST [address] [place] [address] Senior Electronics Technician [facility] 08/01/24 Bobby Grady MD [address] [place] [address] Home Care Provider Family Medicine 10/31/24 Fritz Trejo MD [address] [place] [address] [place] [address] Referring 10/31/24 Rogers Hernandez, SANTO [address] [place], [place] [phone] Make Ready Worker Post Acute Care 10/31/24 Viridiana Trujillo, vamp cut out worker Lead Php Developer 10/31/24 11/13/24 Power Manager Relationship Specialty Start Date End Date Bobby Grady MD [address] [place] [address] PCP - General Family Medicine 11/20/14 Ynes Cameron, GOLF CLUB MANAGER.MIGRATORY GAME BIRD BIOLOGIST [address] [place] [address] Senior Electronics Technician Family Medicine 08/01/24 Amparo Crowley GOLF CLUB MANAGER.MIGRATORY GAME BIRD BIOLOGIST [address] [place] [address] Senior Electronics Technician [facility] 08/01/24 Bobby Grady MD [address] [place] [address] Home Care Provider Family Medicine 10/31/24 Fritz Trejo MD [address] [place] [address] Referring 10/31/24 Rogers Hernandez, RN [address] [place], [place] [phone] Make Ready Worker Post Acute Care 10/31/24 Viridiana Trujillo, vamp cut out worker Lead Php Developer 10/31/24 11/13/24 Power Manager Relationship Specialty Start Date End Date Bobby Grady MD [address] [place] [address] PCP - General Family Medicine 11/20/14 Ynes Cameron, PAYAL.MIGRATORY GAME BIRD BIOLOGIST [address] [place] [address] Senior Electronics Technician [facility] 08/01/24 Amparo Crowley, GOLF CLUB MANAGER.MIGRATORY GAME BIRD BIOLOGIST [address] [place] [address] Senior Electronics Technician [facility] 08/01/24 Bobby Grady MD [address] [place] [address] Home Care Provider Family Medicine 10/31/24 Fritz Trejo MD [address] [place] [address] Referring 10/31/24 Rogers Hernandez RN [address] [place] [address] Make Ready Worker Post Acute Care 10/31/24 Viridiana Trujillo, vamp cut out worker Lead Php Developer 10/31/24 11/13/24 Power Manager Relationship Specialty Start Date End Date Bobby Grady MD [address] [place], [place] [address]461 PCP - General Family Medicine 11/20/14 Ynes Cameron APRN.MIGRATORY GAME BIRD BIOLOGIST [address] [place] [address] Senior Electronics Technician Family Medicine 08/01/24 Amparo Crowley, GOLF CLUB MANAGER.MIGRATORY GAME BIRD BIOLOGIST [address] [place], [place] 2197[address] Senior Electronics Technician Family Medicine 08/01/24 Bobby Grady MD [address] [place], [place] 482451 Home Care Provider Family Medicine 10/31/24 Fritz Trejo MD [address] [place] [address] Referring 10/31/24 Rogers Hernandez RN [address] [place] [address] Make Ready Worker Post Acute Care 10/31/24 Viridiana Trujillo, vamp cut out worker Lead Php Developer 10/31/24 11/13/24 Power Manager Relationship Specialty Start Date End Date Bobby Grady MD [address] [place], [place] [address] PCP - General Family Medicine 11/20/14 Ynes Cameron, GOLF CLUB MANAGER.MIGRATORY GAME BIRD BIOLOGIST [address] [facility] [place] [address] Senior Electronics Technician [facility] 08/01/24 Amparo Crowley APRN.MIGRATORY GAME BIRD BIOLOGIST [address] [place] [address] Senior Electronics Technician [facility] 08/01/24 Bobby Grady MD [address] [place] [address] Home Care Provider Family Medicine 10/31/24 Fritz Trejo MD [address] [facility] [place] [address] Referring 10/31/24 Rogers Hernandez, SANTO [address] [place] [address] Make Ready Worker Post Acute Care 10/31/24 Viridiana Trujillo, vamp cut out worker Lead Php Developer 10/31/24 11/13/24 Power Manager Relationship Specialty Start Date End Date Bobby Grady MD [address] [place] [address] PCP - General Family Medicine 11/20/14 Ynes Cameron, GOLF CLUB MANAGER.MIGRATORY GAME BIRD BIOLOGIST [address] [facility] [place] [address] Senior Electronics Technician Family Medicine 08/01/24 Amparo Crowley GOLF CLUB MANAGER.MIGRATORY GAME BIRD BIOLOGIST [address] [place] [address] Senior Electronics Technician [facility] 08/01/24 Bobby Grady MD [address] [place], [place] 518770 Home Care Provider Family Medicine 10/31/24 Fritz Trejo MD [address] [place] [address] Referring 10/31/24 Rogers Hernandez, SANTO [address] [place], [place] [phone] Make Ready Worker Post Acute Care 10/31/24 Viridiana Trujillo, vamp cut out worker Lead Php Developer 10/31/24 11/13/24 Power Manager Relationship Specialty Start Date End Date Bobby Grady MD [address] [place] [address] PCP - General Family Medicine 11/20/14 Ynes Cameron APRN.MIGRATORY GAME BIRD BIOLOGIST [address] [place] [address] Senior Electronics Technician Family Medicine 08/01/24 Amparo Crowley APRN.MIGRATORY GAME BIRD BIOLOGIST [address] [place] [address] Senior Electronics Technician Family Medicine 08/01/24 Bobby Grady MD [address] [place] [address] Home Care Provider Family Medicine 10/31/24 Fritz Trejo MD [address] [place] [address] Referring 10/31/24 Rogers Hernandez RN [address] [place], [place] [phone] Make Ready Worker Post Acute Care 10/31/24 Viridiana Trujillo RN Primary Care Lead Php Developer 10/31/24 11/13/24 Power Manager Relationship Specialty Start Date End Date Bobby Grady MD [address] [facility], [place] [address]131 PCP - General Family Medicine 11/20/14 Ynes Cameron, GOLF CLUB MANAGER.MIGRATORY GAME BIRD BIOLOGIST [address] [facility] [place] [address] Senior Electronics Technician Family Medicine 08/01/24 Amparo Crowley GOLF CLUB MANAGER.MIGRATORY GAME BIRD BIOLOGIST [address] [place] [address] Senior Electronics Technician [facility] 08/01/24 Bobby Grady MD [address] [place] [address] Home Care Provider Family Medicine 10/31/24 Fritz Trejo MD [address] [facility] [place] [address] Referring 10/31/24 Rogers Hernandez, SANTO [address] [place], [place] [phone] Make Ready Worker Post Acute Care 10/31/24 Viridiana Trujillo, vamp cut out worker Lead Php Developer 10/31/24 11/13/24 Power Manager Relationship Specialty Start Date End Date Bobby Grady MD [address] [place] [address] PCP - General Family Medicine 11/20/14 Ynes Cameron APRN.MIGRATORY GAME BIRD BIOLOGIST [address] [facility] [place] [address] Senior Electronics Technician [facility] 08/01/24 Amparo Crowley GOLF CLUB MANAGER.MIGRATORY GAME BIRD BIOLOGIST [address] [place] [address] Senior Electronics Technician [facility] 08/01/24 Bobby Grady MD [address] [place], [place] [address]95371 Home Care Provider Family Medicine 10/31/24 Fritz Trejo MD [address] [place] [address] Referring 10/31/24 Rogers Hernandez, SANTO [address] [place], [place] [phone] Make Ready Worker Post Acute Care 10/31/24 Viridiana Trujillo, vamp cut out worker Lead Php Developer 10/31/24 11/13/24 Power Manager Relationship Specialty Start Date End Date Bobby Grady MD [address] [place] [address] PCP - General Family Medicine 11/20/14 Ynes Cameron APRN.MIGRATORY GAME BIRD BIOLOGIST [address] [place], [place] [address] Senior Electronics Technician [facility] 08/01/24 Bobby Grady MD [address] [place] [address] Home Care Provider Family Medicine 10/31/24 Fritz Trejo MD [address] [place] [address] Referring 10/31/24 Rogers Hernandez, SANTO [address] [place], [place] [phone] Make Ready Worker Post Acute Care 10/31/24 Viridiana Trujillo, vamp cut out worker Lead Php Developer 10/31/24 11/13/24 Power Manager Relationship Specialty Start Date End Date Bobby Grady MD [address] [place] [address] PCP - General Family Medicine 11/20/14 Ynes Cameron, GOLF CLUB MANAGER.MIGRATORY GAME BIRD BIOLOGIST [address] [facility] [place] [address] Senior Electronics Technician Family Medicine 08/01/24 Amparo Crowley GOLF CLUB MANAGER.MIGRATORY GAME BIRD BIOLOGIST [address] [place] [address] Senior Electronics Technician Family Medicine 08/01/24 Bobby Grady MD [address] [place] [address] Home Care Provider Family Medicine 10/31/24 Fritz Trejo MD [address] [place] [address] [place] [address] Referring 10/31/24 Rogers Hernandez, SANTO [address] [place], [place] [id number] Make Ready Worker Post Acute Care 10/31/24 Power Manager Relationship Specialty Start Date End Date Bobby Grady MD [address] [place] [address] PCP - General Family Medicine 11/20/14 Ynes Cameron, GOLF CLUB MANAGER.MIGRATORY GAME BIRD BIOLOGIST [address] [facility] [place] [address] Senior Electronics Technician Family Medicine 08/01/24 Amparo Crowley GOLF CLUB MANAGER.MIGRATORY GAME BIRD BIOLOGIST [address] [place] [address] Senior Electronics Technician Family Medicine 08/01/24 Bobby Grady MD [address] [place] [address] Home Care Provider Family Medicine 10/31/24 Fritz Trejo MD [address] [place] [address] Referring 10/31/24 Rogers Hernandez, RN [address] [place] [address] Make Ready Worker Post Acute Care 10/31/24 Power Manager Relationship Specialty Start Date End Date Bobby Grady MD [address] [place] [address] PCP - General Family Medicine 11/20/14 Ynes Cameron, GOLF CLUB MANAGER.MIGRATORY GAME BIRD BIOLOGIST [address] [place] [address] Senior Electronics Technician Family [facility] 08/01/24 Amparo Crowley, GOLF CLUB MANAGER.MIGRATORY GAME BIRD BIOLOGIST [address] [place] [address] Senior Electronics Technician Family [facility] 08/01/24 Bobby Grady MD [address] [place] [address] Home Care Provider Family Medicine 10/31/24 Fritz Trejo MD [address] [place] [address] Referring 10/31/24 Rogers Hernandez, SANTO [address] [place] [address] Make Ready Worker Post Acute Care 10/31/24 Power Manager Relationship Specialty Start Date End Date Bobby Grady MD [address] [place] [address] PCP - General Family Medicine 11/20/14 Ynes Cameron, PAYAL.MIGRATORY GAME BIRD BIOLOGIST [address] [place] [address] Senior Electronics Technician Family Medicine 08/01/24 Amparo Crowley GOLF CLUB MANAGER.MIGRATORY GAME BIRD BIOLOGIST [address] [place] [address] Senior Electronics Technician Family Medicine 08/01/24 Bobby Grady MD [address] [place] [address] Home Care Provider Family Medicine 10/31/24 Fritz Treoj MD [address] [facility] [place] [address] Referring 10/31/24 Rogers Hernandez, RN [address] [place] [address] Make Ready Worker Post Acute Care 10/31/24 Power Manager Relationship Specialty Start Date End Date Bobby Grady MD [address] [place] [address] PCP - General Family Medicine 11/20/14 Ynes Cameron APRN.MIGRATORY GAME BIRD BIOLOGIST [address] [place] [address] Senior Electronics Technician Family Medicine 08/01/24 Amparo Crowley GOLF CLUB MANAGER.MIGRATORY GAME BIRD BIOLOGIST [address] [place] [address] Senior Electronics Technician Family Medicine 08/01/24 Bobby Grady MD [address] [place] [address] Home Care Provider Family Medicine 10/31/24 rFitz Trejo MD [address] [place] [address] Referring 10/31/24 Rogers Hernandez, SANTO [address] [place] [address] Make Ready Worker Post Acute Care 10/31/24 Power Manager Relationship Specialty Start Date End Date Bobby Grady MD [address] [place] [address] PCP - General Family Medicine 11/20/14 Ynes Cameron, GOLF CLUB MANAGER.MIGRATORY GAME BIRD BIOLOGIST [address] [place] [address] Senior Electronics Technician Family Medicine 08/01/24 Amparo Crowley GOLF CLUB MANAGER.MIGRATORY GAME BIRD BIOLOGIST [address] [place] [address] Senior Electronics Technician Family Medicine 08/01/24 Bobby Grady MD [address] [place] [address] Home Care Provider Family Medicine 10/31/24 Fritz Trejo MD [address] [place] [address] Referring 10/31/24 Rogers Hernandez, SANTO [address] [place] [address] Make Ready Worker Post Acute Care 10/31/24 Power Manager Relationship Specialty Start Date End Date Bobby Grady MD [address] [place] [address] PCP - General Family Medicine 11/20/14 Ynes Cameron APRN.MIGRATORY GAME BIRD BIOLOGIST [address] [place] [address] Senior Electronics Technician Family Medicine 08/01/24 Amparo Crowley GOLF CLUB MANAGER.MIGRATORY GAME BIRD BIOLOGIST [address] [place] [address] Senior Electronics Technician Family Medicine 08/01/24 Bobby Grady MD [address] [place] [address] Home Care Provider Family Medicine 10/31/24 Fritz Trejo MD [facility] [place] [address] Referring 10/31/24 Rogers Hernandez, RN [address] [place] [address] Make Ready Worker Post Acute Care 10/31/24 Power Manager Relationship Specialty Start Date End Date Bobby Grady MD [address] [place] [address] PCP - General Family Medicine 11/20/14 Ynes Cameron APRN.MIGRATORY GAME BIRD BIOLOGIST [address] [place] [address] Senior Electronics Technician Family Medicine 08/01/24 Amparo Crowley GOLF CLUB MANAGER.MIGRATORY GAME BIRD BIOLOGIST [address] [place] [address] Senior Electronics Technician Family Medicine 08/01/24 Bobby Grady MD [address] [place] [address] Home Care Provider Family Medicine 10/31/24 Fritz Trejo MD [address] [place] [address] Referring 10/31/24 Rogers Hernandez, SANTO [address] [place] [address] Make Ready Worker Post Acute Care 10/31/24 Power Manager Relationship Specialty Start Date End Date Bobby Grady MD [address] [place] [address] PCP - General Family Medicine 11/20/14 Ynes Cameron APRN.MIGRATORY GAME BIRD BIOLOGIST [address] [place] [address] Senior Electronics Technician Family Medicine 08/01/24 Amparo Crowley GOLF CLUB MANAGER.MIGRATORY GAME BIRD BIOLOGIST [address] [place] [address] Senior Electronics Technician Family Medicine 08/01/24 Bobby Grady MD [address] [place] [address] Home Care Provider Family Medicine 10/31/24 Fritz Trejo MD [address] [place] [address] Referring 10/31/24 Rogers Hernandez, RN [address] [place], [place] [id number] Make Ready Worker Post Acute Care 10/31/24 Power Manager Relationship Specialty Start Date End Date Bobby Grady MD [address] [place] [address] PCP - General Family Medicine 11/20/14 Ynes Cameron, GOLF CLUB MANAGER.MIGRATORY GAME BIRD BIOLOGIST [address] [place] [address] Senior Electronics Technician Family Medicine 08/01/24 Ampaor Crowley GOLF CLUB MANAGER.MIGRATORY GAME BIRD BIOLOGIST [address] [place] [address] Senior Electronics Technician Family [facility] 08/01/24 Bobby Grady MD [address] [place] [address] Home Care Provider Family Medicine 10/31/24 Fritz Trejo MD [address] [place] [address] [place] [address] Referring 10/31/24 Rogers Hernandez, SANTO [address] [place], [place] [id number] Make Ready Worker Post Acute Care 10/31/24 Viridiana Trujillo, vamp cut out worker Lead Php Developer 10/31/24 11/13/24 Power Manager Relationship Specialty Start Date End Date Bobby Grady MD [address] [place], [place] [address]14711 PCP - General Family Medicine 11/20/14 Ynes Cameron, GOLF CLUB MANAGER.MIGRATORY GAME BIRD BIOLOGIST [address] [place] [address] Senior Electronics Technician Family Medicine 08/01/24 Amparo Crowley GOLF CLUB MANAGER.MIGRATORY GAME BIRD BIOLOGIST [address] [place], [place] [address]3391 Senior Electronics Technician Family Medicine 08/01/24 Bobby Grady MD [address] [place] [address] Home Care Provider Family Medicine 10/31/24 Fritz Trejo MD [address] [place] [address] Referring 10/31/24 Rogers Hernandez, RN [address] [place] [address] Make Ready Worker Post Acute Care 10/31/24 Power Manager Relationship Specialty Start Date End Date Bobby Grady MD [address] [place] [address] PCP - General Family Medicine 11/20/14 Ynes Cameron, GOLF CLUB MANAGER.MIGRATORY GAME BIRD BIOLOGIST [address] [place] [address] Senior Electronics Technician Family [facility] 08/01/24 Amparo Crowley, GOLF CLUB MANAGER.MIGRATORY GAME BIRD BIOLOGIST [address] [place] [address] Senior Electronics Technician Family [facility] 08/01/24 Bobby Grady MD [address] [place] [address] Home Care Provider Family Medicine 10/31/24 Fritz Trejo MD [address] [place] [address] Referring 10/31/24 Rogers Hernandez, SANTO [address] [place] [address] Make Ready Worker Post Acute Care 10/31/24 Power Manager Relationship Specialty Start Date End Date Bobby Grady MD [address] [place] [address] PCP - General Family Medicine 11/20/14 Ynes Cameron, PAYAL.MIGRATORY GAME BIRD BIOLOGIST [address] [place] [address] Senior Electronics Technician Family Medicine 08/01/24 Amparo Crowley GOLF CLUB MANAGER.MIGRATORY GAME BIRD BIOLOGIST [address] [place] [address] Senior Electronics Technician Family Medicine 08/01/24 Bobby Grady MD [address] [place] [address] Home Care Provider Family Medicine 10/31/24 Fritz Trejo MD [address] [facility] [place] [address] Referring 10/31/24 Rogers Hernandez, RN [address] [place] [address] Make Ready Worker Post Acute Care 10/31/24 Power Manager Relationship Specialty Start Date End Date Bobby Grady MD [address] [place] [address] PCP - General Family Medicine 11/20/14 Ynes Cameron APRN.MIGRATORY GAME BIRD BIOLOGIST [address] [place] [address] Senior Electronics Technician Family Medicine 08/01/24 Apmaro Crowley GOLF CLUB MANAGER.MIGRATORY GAME BIRD BIOLOGIST [address] [place] [address] Senior Electronics Technician Family Medicine 08/01/24 Bobby Grady MD [address] [place] [address] Home Care Provider Family Medicine 10/31/24 Fritz Trejo MD [address] [place] [address] Referring 10/31/24 Power Manager Relationship Specialty Start Date End Date Bobby Grady MD [address] [place] [address] PCP - General Family Medicine 11/20/14 Ynes Cameron GOLF CLUB MANAGER.MIGRATORY GAME BIRD BIOLOGIST [address] [facility] [place] [address] Senior Electronics Technician Family Medicine 08/01/24 Amparo Crowley GOLF CLUB MANAGER.MIGRATORY GAME BIRD BIOLOGIST [address] [place] [address] Senior Electronics Technician Family Medicine 08/01/24 Bobby Grady MD [address] [place] [address] Home Care Provider Family Medicine 10/31/24 Fritz Trejo MD [address] [place] [address] Referring 10/31/24 Power Manager Relationship Specialty Start Date End Date Bobby Grady MD [address] [place] [address] PCP - General Family Medicine 11/20/14 Ynes Cameron, GOLF CLUB MANAGER.MIGRATORY GAME BIRD BIOLOGIST [address] [facility] [place] [address] Senior Electronics Technician Family [facility] 08/01/24 Amparo Crowley, GOLF CLUB MANAGER.MIGRATORY GAME BIRD BIOLOGIST [address] [place] [address] Senior Electronics Technician Family [facility] 08/01/24 Bobby Grady MD [address] [place] [address] Home Care Provider Family Medicine 10/31/24 Fritz Trejo MD [address] [place] [address] Referring 10/31/24 Rogers Hernandez, RN [address] [place], [place] [id number] Make Ready Worker Post Acute Care 10/31/24 12/22/24 Power Manager Relationship Specialty Start Date End Date Bobby Grady MD [address] [place] [address] PCP - General Family Medicine 11/20/14 Ynes Cameron, PAYAL.MIGRATORY GAME BIRD BIOLOGIST [address] [place] [address] Senior Electronics Technician Family [facility] 08/01/24 Amparo Crowley GOLF CLUB MANAGER.MIGRATORY GAME BIRD BIOLOGIST [address] [place] [address] Senior Electronics Technician Family Medicine 08/01/24 Bobby Grady MD [address] [place] [address] Home Care Provider Family Medicine 10/31/24 Fritz Trejo MD [facility] [place] [address] Referring 10/31/24 Power Manager Relationship Specialty Start Date End Date Bobby Grady MD [address] [facility] [place] [address] PCP - General Family Medicine 11/20/14 Ynes Cameron, GOLF CLUB MANAGER.MIGRATORY GAME BIRD BIOLOGIST [address] [place] [address] Senior Electronics Technician Family Medicine 08/01/24 Amparo Crowley GOLF CLUB MANAGER.MIGRATORY GAME BIRD BIOLOGIST [address] [place] [address] Senior Electronics Technician Family Medicine 08/01/24 Bobby Grady MD [address] [place] [address] Home Care Provider Family Medicine 10/31/24 [place] [address] [place] [address] [place] [address] Referring 10/31/24 Power Manager Relationship Specialty Start Date End Date Bobby Grady MD [address] [place] [address] PCP - General Family Medicine 11/20/14 Ynes Cameron, GOLF CLUB MANAGER.MIGRATORY GAME BIRD BIOLOGIST [address] [place] [address] Senior Electronics Technician Family Medicine 08/01/24 Amparo Crowley GOLF CLUB MANAGER.MIGRATORY GAME BIRD BIOLOGIST [address] [place] [address] Senior Electronics Technician Family Medicine 08/01/24 Bobby Grady MD [address] [place] [address] Home Care Provider Family Medicine 10/31/24 Fritz Trejo MD [address] [place] [address] Referring 10/31/24 Power Manager Relationship Specialty Start Date End Date Bobby Grady MD [address] [place] [address] PCP - General Family Medicine 11/20/14 Ynes Cameron GOLF CLUB MANAGER.MIGRATORY GAME BIRD BIOLOGIST [address] [facility] [place] [address] Senior Electronics Technician Family Medicine 08/01/24 Amparo Crowley GOLF CLUB MANAGER.MIGRATORY GAME BIRD BIOLOGIST [address] [place] [address] Senior Electronics Technician Family Medicine 08/01/24 Bobby Grady MD [address] [place] [address] Home Care Provider Family Medicine 10/31/24 Fritz Trejo MD [address] [place] [address] Referring 10/31/24 Power Manager Relationship Specialty Start Date End Date Bobby Grady MD [address] [place] [address] PCP - General Family Medicine 11/20/14 Ynes Cameron, GOLF CLUB MANAGER.MIGRATORY GAME BIRD BIOLOGIST [address] [facility] [place] [address] Senior Electronics Technician Family [facility] 08/01/24 Amparo Crowley, GOLF CLUB MANAGER.MIGRATORY GAME BIRD BIOLOGIST [address] [place] [address] Senior Electronics Technician Family [facility] 08/01/24 Bobby Grady MD [address] [place] [address] Home Care Provider Family Medicine 10/31/24 Fritz Trejo MD [address] [place] [address] Referring 10/31/24 Power Manager Relationship Specialty Start Date End Date Bobby Grady MD [address] [place] [address] PCP - General Family Medicine 11/20/14 Ynes Cameron, GOLF CLUB MANAGER.MIGRATORY GAME BIRD BIOLOGIST [address] [place] [address] Senior Electronics Technician Family [facility] 08/01/24 Amparo Crowley, GOLF CLUB MANAGER.MIGRATORY GAME BIRD BIOLOGIST [address] [place] [address] Senior Electronics Technician Family Medicine 08/01/24 Bobby Grady MD [address] [place] [address] Home Care Provider Family Medicine 10/31/24 Fritz Trejo MD [address] [place] [address] Referring 10/31/24 Team Status: Active Member Role Status Dates Dr. Bobby Grady MD Primary Care Provider Active Team Status: Inactive Member Role Status Dates Dr. Bobby Grady MD Primary Care Provider Active Start: October 23, 2024 End: October 23, 2024 Dr. Kurtis Noyola MD Attending Provider Active Start: October 23, 2024 End: October 23, 2024 Dr. Kurtis Noyola MD Emergency Provider Active Start: October 23, 2024 End: October 23, 2024 Team Status: Inactive Member Role Status Dates Dr. Bobby Grady MD Primary Care Provider Active Start: December 05, 2024 End: December 05, 2024 Dr. Bobby Grady MD Referring Provider Active Start: December 05, 2024 End: December 05, 2024 Dr. Wily Wen MD Attending Provider Active Start: December 05, 2024 End: December 05, 2024 Team Status: Inactive Member Role Status Dates Dr. Bobby Grady MD Primary Care Provider Active Start: February 10, 2025 End: February 10, 2025 Dr. Bobby Grady MD Referring Provider Active Start: February 10, 2025 End: February 10, 2025 Dr. Lonny Hatfield MD Attending Provider Active Start: February 10, 2025 End: February 10, 2025 Power Manager Relationship Specialty Start Date End Date Bobby Grady MD [address] [facility], [place] [address] PCP - General Family Medicine 11/20/14 Ynes Cameron, GOLF CLUB MANAGER.MIGRATORY GAME BIRD BIOLOGIST [address] [facility] [place] [address] Senior Electronics Technician Family [facility] 08/01/24 Amparo Crowley, GOLF CLUB MANAGER.MIGRATORY GAME BIRD BIOLOGIST [address] [facility], [place] [address] Senior Electronics Technician Family [facility] 08/01/24 Bobby Grady MD [address] [facility], [place] [address] Home Care Provider Family Medicine 10/31/24 Fritz Trejo MD [address] [place] [address] Referring 10/31/24 Power Manager Relationship Specialty Start Date End Date Bobby Grady MD [address] [place] [address] PCP - General Family Medicine 11/20/14 Ynes Cameron APRN.MIGRATORY GAME BIRD BIOLOGIST [address] [facility] [place] [address] Senior Electronics Technician Family Medicine 08/01/24 Amparo Crowley APRN.MIGRATORY GAME BIRD BIOLOGIST [address] [place] [address] Senior Electronics Technician Family Medicine 08/01/24 Bobby Grady MD [address] [place] [address] Home Care Provider Family Medicine 10/31/24 Fritz Trejo MD [address] [place] [address] Referring 10/31/24 Power Manager Relationship Specialty Start Date End Date Bobby Grady MD [address] [place] [address] PCP - General Family Medicine 11/20/14 Ynes Cameron APRN.MIGRATORY GAME BIRD BIOLOGIST [address] [facility] [place] [address] Senior Electronics Technician Family Medicine 08/01/24 Amparo Crowley GOLF CLUB MANAGER.MIGRATORY GAME BIRD BIOLOGIST [address] [place] [address] Senior Electronics Technician Family Medicine 08/01/24 Bobby Grady MD [address] [place] [address] Home Care Provider Family Medicine 10/31/24 Fritz Trejo MD [address] [place] [address] Referring 10/31/24 Power Manager Relationship Specialty Start Date End Date Bobby Grady MD [address] [place] [address] PCP - General Family Medicine 11/20/14 Ynes Cameron, GOLF CLUB MANAGER.MIGRATORY GAME BIRD BIOLOGIST [address] [place] [address] Senior Electronics Technician Family [facility] 08/01/24 Amparo Crowley, GOLF CLUB MANAGER.MIGRATORY GAME BIRD BIOLOGIST [address] [place] [address] Senior Electronics Technician Family Medicine 08/01/24 Bobby Grady MD [address] [place] [address] Home Care Provider Family Medicine 10/31/24 Fritz Trejo MD [address] [place] [address] Referring 10/31/24 Power Manager Relationship Specialty Start Date End Date Bobby Grady MD [address] [place] [address] PCP - General Family Medicine 11/20/14 Ynes Cameron, GOLF CLUB MANAGER.MIGRATORY GAME BIRD BIOLOGIST [address] [facility] [place] [address] Senior Electronics Technician Family Medicine 08/01/24 Amparo Crowley APRN.MIGRATORY GAME BIRD BIOLOGIST [address] [place] [address] Senior Electronics Technician Family Medicine 08/01/24 Bobby Grady MD [address] [place] [address] Home Care Provider Family Medicine 10/31/24 Fritz Trejo MD [address] [place] [address] Referring 10/31/24 Power Manager Relationship Specialty Start Date End Date Bobby Grady MD [address] [place] [address] PCP - General Family Medicine 11/20/14 Ynes Cameron APRN.MIGRATORY GAME BIRD BIOLOGIST [address] [place] [address] Senior Electronics Technician Family Medicine 08/01/24 Amparo Crowley GOLF CLUB MANAGER.MIGRATORY GAME BIRD BIOLOGIST [address] [place] [address] Senior Electronics Technician Family Medicine 08/01/24 Bobby Grady MD [address] [place] [address] Home Care Provider Family Medicine 10/31/24 Fritz Trejo MD [address] [place] [address] Referring 10/31/24 Power Manager Relationship Specialty Start Date End Date Bobby Grady MD [address] [place] [address] PCP - General Family Medicine 11/20/14 Ynes Cameron, GOLF CLUB MANAGER.MIGRATORY GAME BIRD BIOLOGIST [address] [place] [address] Senior Electronics Technician Family Medicine 08/01/24 Amparo Crowley GOLF CLUB MANAGER.MIGRATORY GAME BIRD BIOLOGIST [address] [place] [address] Senior Electronics Technician Family Medicine 08/01/24 Bobby Grady MD [address] [place] [address] Home Care Provider Family Medicine 10/31/24 Fritz Trejo MD [address] [facility] [place] [address] Referring 10/31/24 Power Manager Relationship Specialty Start Date End Date Bobby Grady MD [address] [place] [address] PCP - General Family Medicine 11/20/14 Ynes Cameron, GOLF CLUB MANAGER.MIGRATORY GAME BIRD BIOLOGIST [address] [place] [address] Senior Electronics Technician Family Medicine 08/01/24 Amparo Crowley GOLF CLUB MANAGER.MIGRATORY GAME BIRD BIOLOGIST [address] [place] [address] Senior Electronics Technician Family Medicine 08/01/24 Bobby Grady MD [address] [place] [address] Home Care Provider Family Medicine 10/31/24 Fritz Trejo MD [address] [place] [address] Referring 10/31/24 Power Manager Relationship Specialty Start Date End Date Bobby Grady MD [address] [place] [address] PCP - General Family Medicine 11/20/14 Ynes Cameron APRN.MIGRATORY GAME BIRD BIOLOGIST [address] [place] [address] Senior Electronics Technician Family Medicine 08/01/24 Amparo Crowley APRN.MIGRATORY GAME BIRD BIOLOGIST [address] [place] [address] Senior Electronics Technician Family Medicine 08/01/24 Bobby Grady MD [address] [place] [address] Home Care Provider Family Medicine 10/31/24 Fritz Trejo MD [address] [place] [address] Referring 10/31/24 Power Manager Relationship Specialty Start Date End Date Bobby Grady MD [address] [place] [address] PCP - General Family Medicine 11/20/14 Ynes Cameron, GOLF CLUB MANAGER.MIGRATORY GAME BIRD BIOLOGIST [address] [place] [address] Senior Electronics Technician Family Medicine 08/01/24 Amparo Crowley APRN.[facility] [address] [facility] [place], [place] [address] Senior Electronics Technician Family Medicine 08/01/24 Bobby Grady MD [address] [facility] [place] [address] Home Care Provider Family Medicine 10/31/24 Fritz Trejo MD [address] [place] [address] [place] [address] Referring 10/31/24 Team Status: Active Member Role/Relationship Status Dates Dr. Bobby Grady MD Primary care physician Active Team Status: Active Member Role/Relationship Status Dates Dr. Bobby Grady MD Primary care physician Active Start: February 20, 2025 Dr. Beto Olivares MD Attending physician Active Start: February 20, 2025 Dr. Lonny Hatfield MD Referring Provider Active Start: February 20, 2025 Team Status: Active Member Role/Relationship Status Dates Dr. Lonny Hatfield MD Attending physician Active Start: February 20, 2025 Dr. Lonny Hatfield MD Referring Provider Active Start: February 20, 2025 Dr. Bobby Grady MD Primary care physician Active Start: February 20, 2025 Team Status: Inactive Member Role/Relationship Status Dates Dr. Bobby Grady MD Primary care physician Active Start: June 07, 2025 End: June 07, 2025 Dr. Bobby Grady MD Referring Provider Active Start: June 07, 2025 End: June 07, 2025 Dr. Wily Wen MD Attending physician Active Start: June 07, 2025 End: June 07, 2025 Goals (unrecognized section and content) Goals may be documented in a n alternate sectionGoals may be documented in an alternate sectionGoals may be documented in an alternate section Administered Medications Administered Medications (un recognized section and content) Medication Order MAR Action Action Date Dose Rate Site tuberculin skin test, unspecified formulation Given 08/02/2022 0.1 ml FOR RECORDS PERTAINING TO PATIENTS WHO ARE OR HAVE BEEN ENROLLED IN A CHEMICAL DEPENDENCY/SUBSTANCEABUSE PROGRAM, SOME INFORMATION MAY BE OMITTED. This clinical summary was aggregated from multiple sources. Caution should be exercised in using it in the provision of clinical care. This summary normalizes information from multiple sources, and as a consequence, information in this document may materially change the coding, format and clinical context of patient data. In addition, data may be omitted in some cases. CLINICAL DECISIONS SHOULD BE BASED ON THE PRIMARY CLINICAL RECORDS. [facility] [employer] [facility]. provides no warranty or guarantee of the accuracy or completeness of information in this document.
--- NOTE | 2025-06-28 14:33 | STRESSREP ---
Stress Test Report Date: 06/28/2025 Procedure: Pharmacologic stress nuclear imaging study Indications: Paroxysmal atrial fibrillation Consent: Per the patient Procedure: The patient underwent pharmacologic (Regadenoson 0.4mg ) evaluation with a peak heart rate of 137 beats per minute (92%predicted maximal heart rate) and a peak blood pressure of 138/82 mmHg. The baseline ECG demonstrated sinus rhythm. The peak pharmacologic ECG did not show any ischemic changes. There were no cardiac dysrhythmias pretest, during pharmacologic infusion, or recovery. There was no complaint of chest discomfort during pharmacologic infusion or recovery. The patient was injected with 13.6 millicuries of technetium 99m Cardiolite and subsequently rest SPECT Cardiolite nuclear imaging was obtained in the horizontal long, vertical long, and short axis views. The patient underwent pharmacologic (Regadenoson) evaluation. The patient was injected with 42.9 millicuries of technetium 99m Cardiolite and subsequently stress SPECT Cardiolite nuclear imaging was obtained in the horizontal long, vertical long, and short axis views. A gated Cardiolite study at peak stress was obtained. The examination was stopped secondary to completion of protocol. Rest and stress SPECT Cardiolite nuclear imaging status post realignment, normalization, and attenuation correction demonstrate no fixed or reversible perfusion defects. There is end systolic thickening and brightening. The gated Cardiolite study demonstrates myocardial thickening and inward wall motion. The reported LVEF is 74%. Impression: 1. Pharmacologic (Regadenoson) evaluation 2. Peak pharmacologic ECG with no ischemic changes. 3. There were no cardiac dysrhythmias pretest, during pharmacologic infusion, or recovery. 5. Rest and stress SPECT Cardiolite nuclear imaging demonstrate relative uniform tracer uptake and myocardial perfusion appearing within normal limits. 6. The gated Cardiolite study reports an LVEF of 74%. This note was generated with [employer] software. It may contain incorrect words, spelling, and punctuation that were not noted in checking the note before signing.
== END | disposition home or self-care (01) ==
LOC: CVS 06:56
PROVIDERS: PCP Family Medicine; Referring Provider Internal Medicine Cardiovascular Disease; Visit Provider Internal Medicine Cardiovascular Disease
DX: R00.2 Palpitations (principal); E11.9 Type 2 diabetes mellitus without complications; I10 Essential (primary) hypertension; Z86.79 Personal history of other diseases of the circulatory system; R94.31 Abnormal electrocardiogram [ECG] [EKG]
CPT/HCPCS: 78452; 93017; A9500; A4216; J2785

== ENCOUNTER → 2025-07-04 | Outpatient (CLI) | payer MEDICARE, SELFPAY ==
[2025-07-04 13:21] LABS: Prothrombin Time (Protime)PT. 21.7 SECONDS (11.7-14.9)
== END | disposition home or self-care (01) ==
LOC: LAB 11:59
PROVIDERS: PCP Family Medicine; Referring Provider Internal Medicine Clinical Cardiac Electrophysiology; Visit Provider Internal Medicine Clinical Cardiac Electrophysiology
DX: I48.91 Unspecified atrial fibrillation (principal)
CPT/HCPCS: 36415; 85610

== ENCOUNTER → 2025-07-12 | Outpatient (CLI) | payer MEDICARE, SELFPAY ==
[2025-07-12 15:17] LABS: Prothrombin Time (Protime)PT. 32.8 SECONDS (11.7-14.9)
== END | disposition home or self-care (01) ==
LOC: LAB 07-19 13:38
PROVIDERS: PCP Family Medicine; Referring Provider Internal Medicine Cardiovascular Disease; Visit Provider Internal Medicine Cardiovascular Disease
DX: I48.91 Unspecified atrial fibrillation (principal); Z79.01 Long term (current) use of anticoagulants
CPT/HCPCS: 36415; 85610

== ENCOUNTER 2025-07-19 13:39 | Outpatient (RCR) | payer MEDICARE, SELFPAY ==
[2025-07-19 14:18] LABS: INR Fingerstick 3.4
== END 2025-07-22 18:00 | disposition home or self-care (01) ==
LOC: LAB 13:39
PROVIDERS: PCP Family Medicine; Visit Provider Internal Medicine Cardiovascular Disease
DX: I48.91 Unspecified atrial fibrillation (principal); Z79.01 Long term (current) use of anticoagulants
CPT/HCPCS: 36416; 85610

== ENCOUNTER 2025-08-10 15:59 | Outpatient (RCR) | payer MEDICARE, SELFPAY ==
[2025-07-26 15:22] LABS: INR Fingerstick 2.7
[2025-08-03 15:39] LABS: INR Fingerstick 1.6
[2025-08-10 16:11] LABS: INR Fingerstick 2.0
== END 2025-08-10 18:00 | disposition home or self-care (01) ==
LOC: LAB 15:59
PROVIDERS: PCP Family Medicine; Visit Provider Internal Medicine Cardiovascular Disease
DX: I48.91 Unspecified atrial fibrillation (principal); Z79.01 Long term (current) use of anticoagulants
CPT/HCPCS: 36416; 85610